=== PATIENT | male | born 1940 | race Asian ===

== ENCOUNTER 2018-01-24 18:26 | Inpatient (IN) | payer MEDICARE, MEDICAID ==
[~2018-01-24] VITALS: Ht 175.3 cm; Wt 75.9 kg
[2018-01-24 18:18] VITALS: BP 112/49
[2018-01-24 18:58] LABS: HEMATOCRIT 37.1 % (42.0-52.0); HEMOGLOBIN 12.8 G/DL (14.2-18.0); LYMPHOCYTES % (AUTO) 2.7 % (20.0-45.0); MEAN CORPUSCULAR VOLUME 92 FL (80-99); MONOCYTES % (AUTO) 2.3 % (1.0-10.0); NEUTROPHILS % (AUTO) 94.9 % (45.0-75.0); PLATELET COUNT 234 K/UL (150-450); RED BLOOD COUNT 4.03 M/UL (4.70-6.10); RED CELL DISTRIBUTION WIDTH 12.1 % (11.6-14.8); WHITE BLOOD COUNT 10.9 K/UL (4.8-10.8)
[2018-01-24 18:59] LABS: BASOPHILS % (AUTO) 0.2 % (0.0-2.0)
[2018-01-24 19:09] LABS: ANION GAP 10 mmol/L (5-15); BLOOD UREA NITROGEN 52 mg/dL (7-18); CALCIUM 8.5 MG/DL (8.5-10.1); CARBON DIOXIDE 22 MMOL/L (21-32); CHLORIDE 103 MMOL/L (98-107); CREATININE 1.6 MG/DL (0.55-1.30); POTASSIUM 3.4 MMOL/L (3.5-5.1); SODIUM 135 MMOL/L (136-145)
[2018-01-24 19:15] VITALS: BP 117/59
[2018-01-24 19:15] LABS: APPEARANCE,URINE CLOUDY; BILIRUBIN, URINE 1+ (NEGATIVE); GLUCOSE, URINE (UA) NEGATIVE (NEGATIVE); KETONES,URINE 1+ (NEGATIVE); LEUKOCYTE ESTERASE ,URINE 1+ (NEGATIVE); NITRITE,URINE NEGATIVE (NEGATIVE); PH,URINE 5 (4.5-8.0); PROTEIN,URINE 2+ (NEGATIVE); UROBILINOGEN,URINE 8 MG/DL (0.0-1.0)
[2018-01-24 19:16] LABS: COLOR,URINE AMBER
[2018-01-24 19:25] LABS: ALANINE AMINOTRANSFERASE 32 U/L (12-78); ALBUMIN 2.3 G/DL (3.4-5.0); ALBUMIN/GLOBULIN RATIO 0.5 (1.0-2.7); ALKALINE PHOSPHATASE 70 U/L (46-116); ASPARTATE AMINO TRANSFERASE 54 U/L (15-37); BILIRUBIN,TOTAL 2.2 MG/DL (0.2-1.0); CKMB 4.9 NG/ML (0.0-3.6); CREATINE KINASE 574 U/L (26-308)
[2018-01-24 19:26] LABS: BILIRUBIN,DIRECT 0.9 MG/DL (0.0-0.3)
[2018-01-24] MEDS ORDERED: Piperacillin/Tazobactam 3.375 GM in NS 110 ML IVPB ONE (19:45)
[2018-01-24] MEDS ORDERED: Azithromycin 250mg tab ORAL ONE (19:45)
[2018-01-24] MEDS ORDERED: Azithromycin 500 MG in NS 275 ML IV ONE (19:45)
[2018-01-24 20:10] VITALS: BP 118/61
[2018-01-24] MEDS ORDERED: Azithromycin 500mg Inj IV ONE (20:22)
[2018-01-24] MEDS ORDERED: CHOLESTEROL PILL (22:01)
--- NOTE | 2018-01-24 22:11 | Emergency Room Report ---
History of Present Illness General Chief Complaint: Generalized Weakness Source: Patient Present Illness HPI 77-year-old male presents ED for evaluation. Brought in by EMS from home. Increased weakness. Frequent falls. [id number] at bedside states that patient be getting increasingly weak and sick for the last few days. Reported cough. Patient refused to come to hospital for evaluation. Patient has fallen and hit his head. Denies chest pain or shortness of breath. Unclear whether patient received flu shot. No other aggravating relieving factors. Denies any other associated symptoms Allergies: Coded Allergies: No Known Allergies (Unverified , 01/24/18) Patient History Past Medical History: none Past Surgical History: none Pertinent Family History: none Social History: Denies: smoking, alcohol use, drug use Immunizations: UTD Reviewed Nursing Documentation: PMH: Agreed; PSxH: Agreed Nursing Documentation-PMH Past Medical History: No History, Except For Hx Hypertension: No - Hypotension Review of Systems All Other Systems: negative except mentioned in HPI Physical Exam Vital Signs Date Time Temp Pulse Resp B/P (MAP) Pulse Ox O2 Delivery O2 Flow Rate FiO2 01/24/18 18:00 97.2 81 20 116/60 97 Room Air Sp02 EP Interpretation: reviewed, normal General Appearance: GCS 15, non-toxic, other - lethargic Head: normocephalic Eyes: bilateral eye normal inspection, bilateral eye PERRL ENT: normal ENT inspection Neck: normal inspection Respiratory: crackles Cardiovascular #1: regular rate, rhythm, no edema Gastrointestinal: normal inspection Rectal: deferred Genitourinary: no CVA tenderness Musculoskeletal: normal inspection Neurologic: other - lethargic Psychiatric: other - lethargic Skin: normal inspection Lymphatic: normal inspection Procedures Critical Care Time Critical Care Time i. I feel this is a highly complex case requiring extensive working including EKG/Rhythm strip, Xray/CT/US, Blood/urine lab work, repeat exams while in ED, and administration of strong opiates/narcotics for pain control, admission to hospital or close patient follow up. Total time: 30 min bedside evaluation and treatment excludes procedures (EKG). Reason for critical care: hypoxia, severe sepsis Possible complications: hypotension, hypertension, SD, shock, arrhythmias, metabolic acidosis, end organ damage, respiratory failure. Interventions: Labs, IV fluids, EKG, chest x-ray, CT head. ABG. Reassessment. BiPAP. Antibiotics. Discussion with pulmonary. Course: Patient presenting with increased weakness, frequent falls. Chest x- ray shows pneumonia. Labs show renal insufficiency. Lactic 4. UA grossly positive. Patient hypoxic. ABG shows hypoxia. Placed on nonrebreather with continued hypoxia. Discussed with family about patient's status. Agreed to place on BiPAP. Given 30 mL per KG fluid bolus. Consultations: nursing staff, EMS, family Performed by: Dr Jaimes Tolerated well condition = critical j. because of unstable vital signs this patient had a condition that could potentially threaten life or limb. I feel this is a critical patient who required my full attention while patient was considered critical. Total Critical Care Time excluding procedures was greater than 35 minutes Medical Decision Making Diagnostic Impression: Primary Impression: Episode of generalized weakness Additional Impressions: Pneumonia Qualified Codes: J18.1 - Lobar pneumonia, unspecified organism UTI (urinary tract infection) Qualified Codes: N39.0 - Urinary tract infection, site not specified Hypoxia Renal insufficiency Severe sepsis ER Course Hospital Course 77-year-old male presenting to ED with generalized weakness, frequent falls, cough Differential diagnoses include: Pneumonia, UTI, sepsis, dehydration, SD/ unstable angina Clinical course Patient placed on stretcher. On spare fixer. hypoxic. After initial history and physical, I ordered labs, IV fluids, EKG, chest x-ray, blood cultures, UA, nebs, CT. Labs - BUN/Cr elevated, no leukocytosis, troponins negative, lactic 4, UA grossly positive for UTI EKG - NSR, no acute ischemic changes interpreted by mi CXR - bilateral pneumonia broad spectrum Abx given. Given 30 mL per KG fluid bolus. Patient remains hypoxic on nasal cannula. ABG shows hypoxia. Switched to nonrebreather and repeat ABG shows some improvement but still hypoxic. Discussed with family. They agreed to full care. Agreed to BiPAP. Patient started on BiPAP Case discussed with Dr Corrigan and they agreed to admit patient to their service for further care and support Dr Johnson consulted I feel this is a highly complex case requiring extensive working including EKG/ Rhythm strip, Xray/CT/US, Blood/urine lab work, repeat exams while in ED, and administration of strong opiates/narcotics for pain control, admission to hospital or close patient follow up. Diagnosis - UTI, generalized weakness, pneumonia, hypoxia, severe sepsis, renal insufficiency Patient admitted to SDU in critical condition Labs Test 01/24/18 18:30 01/24/18 19:05 01/24/18 19:43 01/24/18 19:50 White Blood Count 10.9 K/UL (4.8-10.8) Red Blood Count 4.03 M/UL (4.70-6.10) Hemoglobin 12.8 G/DL (14.2-18.0) Hematocrit 37.1 % (42.0-52.0) Mean Corpuscular Volume 92 FL (80-99) Mean Corpuscular Hemoglobin 31.8 PG (27.0-31.0) Mean Corpuscular Hemoglobin Concent 34.4 G/DL (32.0-36.0) Red Cell Distribution Width 12.1 % (11.6-14.8) Platelet Count 234 K/UL (150-450) Mean Platelet Volume 6.2 FL (6.5-10.1) Neutrophils (%) (Auto) 94.9 % (45.0-75.0) Lymphocytes (%) (Auto) 2.7 % (20.0-45.0) Monocytes (%) (Auto) 2.3 % (1.0-10.0) Eosinophils (%) (Auto) 0.0 % (0.0-3.0) Basophils (%) (Auto) 0.2 % (0.0-2.0) Sodium Level 135 MMOL/L (136-145) Potassium Level 3.4 MMOL/L (3.5-5.1) Chloride Level 103 MMOL/L (98-107) Carbon Dioxide Level 22 MMOL/L (21-32) Anion Gap 10 mmol/L (5-15) Blood Urea Nitrogen 52 mg/dL (7-18) Creatinine 1.6 MG/DL (0.55-1.30) Estimat Glomerular Filtration Rate mL/min (>60) Glucose Level 103 MG/DL (74-106) Lactic Acid Level 4.00 mmol/L (0.4-2.0) 2.90 mmol/L (0.66-2.22) Calcium Level 8.5 MG/DL (8.5-10.1) Total Bilirubin 2.2 MG/DL (0.2-1.0) Direct Bilirubin 0.9 MG/DL (0.0-0.3) Aspartate Amino Transf (AST/SGOT) 54 U/L (15-37) Alanine Aminotransferase (ALT/SGPT) 32 U/L (12-78) Alkaline Phosphatase 70 U/L (46-116) Total Creatine Kinase 574 U/L (26-308) Creatine Kinase MB 4.9 NG/ML (0.0-3.6) Creatine Kinase MB Relative Index 0.8 Troponin I 0.016 ng/mL (0.000-0.056) Pro-B-Type Natriuretic Peptide 2036 pg/mL (0-125) Total Protein 7.3 G/DL (6.4-8.2) Albumin 2.3 G/DL (3.4-5.0) Globulin 5.0 g/dL Albumin/Globulin Ratio 0.5 (1.0-2.7) Urine Color Angela Urine Appearance Cloudy Urine pH 5 (4.5-8.0) Urine Specific [place] 1.015 (1.005-1.035) Urine Protein 2+ (NEGATIVE) Urine Glucose (UA) Negative (NEGATIVE) Urine Ketones 1+ (NEGATIVE) Urine Blood 1+ (NEGATIVE) Urine Nitrite Negative (NEGATIVE) Urine Bilirubin 1+ (NEGATIVE) Urine Ictotest Negative (NEGATIVE) Urine Urobilinogen 8 MG/DL (0.0-1.0) Urine Leukocyte Esterase 1+ (NEGATIVE) Urine RBC 0-2 /HPF (0 - 0) Urine WBC 0-2 /HPF (0 - 0) Urine Squamous Epithelial Cells None /LPF (NONE/OCC) Urine Amorphous Sediment Moderate /LPF (NONE) Urine Bacteria Moderate /HPF (NONE) Urine Mucus Moderate /LPF (NONE/OCC) Arterial Blood pH 7.474 (7.350-7.450) Arterial Blood Partial Pressure CO2 26.2 mmHg (35.0-45.0) Arterial Blood Partial Pressure O2 43.7 mmHg (75.0-100.0) Arterial Blood HCO3 18.8 mmol/L (22.0-26.0) Arterial Blood Oxygen Saturation 77.9 % (95-100) Arterial Blood Base Excess -3.4 (-2-2) Dima Test Positive Test 01/24/18 20:59 Arterial Blood pH 7.452 (7.350-7.450) Arterial Blood Partial Pressure CO2 28.6 mmHg (35.0-45.0) Arterial Blood Partial Pressure O2 56.5 mmHg (75.0-100.0) Arterial Blood HCO3 19.5 mmol/L (22.0-26.0) Arterial Blood Oxygen Saturation 88.1 % (95-100) Arterial Blood Base Excess -3.3 (-2-2) Dima Test Positive EKG Diagnostic Results Rate: normal Rhythm: NSR ST Segments: no acute changes ASA given to the pt in ED: No Rhythm Strip Diag. Results EP Interpretation: yes Rhythm: NSR, no PVC's, no ectopy Chest X-Ray Diagnostic Results Chest X-Ray Diagnostic Results : Chest X-Ray Ordered: Yes # of Views/Limited/Complete: 1 View Indication: Shortness of Breath EP Interpretation: Yes Interpretation: no pneumothorax, other - bilateral consolidation Impression: Other - PNA Electronically Signed by: Electronically signed by Huan Jaimes MD Last Vital Signs Date Time Temp Pulse Resp B/P (MAP) Pulse Ox O2 Delivery O2 Flow Rate FiO2 01/24/18 18:19 83 20 Room Air 01/24/18 18:18 97.2 112/49 98 Status: improved Disposition: ADMITTED INPATIENT Condition: Serious Referrals: NON PHYSICIAN (PCP) Huan Jaimes MD Jan 24, 2018 22:11
[2018-01-24] MEDS ORDERED: Acetaminophen 650 MG SUPP RECTAL PRN (22:15)
[2018-01-24 22:30] VITALS: BP 127/73
[2018-01-25 03:25] LABS: HEMATOCRIT 36.5 % (42.0-52.0); HEMOGLOBIN 12.7 G/DL (14.2-18.0); MEAN CORPUSCULAR VOLUME 92 FL (80-99); PLATELET COUNT 231 K/UL (150-450); RED BLOOD COUNT 3.97 M/UL (4.70-6.10); RED CELL DISTRIBUTION WIDTH 12.3 % (11.6-14.8); WHITE BLOOD COUNT 12.9 K/UL (4.8-10.8)
[2018-01-25 03:49] LABS: CHOLESTEROL < 50 MG/DL (< 200); HDL CHOLESTEROL 26 MG/DL (40-60); TRIGLYCERIDES 44 MG/DL (30-150)
[2018-01-25] MEDS ORDERED: Piperacillin/Tazobactam 3.375 GM in NS 110 ML IVPB ONE (04:00)
[2018-01-25] MEDS: DiphenhydrAMINE 50mg/ml Inj IVP PRN ×2 (06:14→23:32)
[2018-01-25 06:15] VITALS: BP 131/74
[2018-01-25 06:52] VITALS: BP 134/73
[2018-01-25 07:45] VITALS: BP 138/119
--- NOTE | 2018-01-25 10:08 | Diagnostic Imaging Report ---
Indication: Shortness of breath Technique: One view of the chest Comparison: none Findings: Dense consolidation as well as reticular nodular opacities are seen in the right upper lobe, left lung base. More hazy opacification is seen in the left midlung. Nodular opacities are seen at the right lung base. Right size is normal. Impression: Bilateral parenchymal disease, as described. Suspect acute infiltrates in the right upper lobe and left lung base. However, also suspected there is a significant chronic component. Correlate with clinical findings
[2018-01-25] MEDS: Heparin 5000 units/ml inj SUBQ SCH ×2 (10:11→18:00)
--- NOTE | 2018-01-25 10:33 | Diagnostic Imaging Report ---
Indications: Head pain, status post fall Technique: Spiral acquisitions obtained through the brain. Angled axial and coronal 5 x 5 mm slices were reconstructed. Total dose length product 1481.1 mGycm. CTDI vol(s) 70.38 mGy. Dose reduction achieved using automated exposure control Comparison: None. Findings: There is age-related enlargement of the ventricles and extra axial CSF spaces. There is mild periventricular deep white matter low-attenuation, consistent with chronic ischemic change. No acute intrarenal hemorrhage or edema. No mass effect nor midline shift. Impression: Chronic and age-related changes. Negative for acute intracranial bleed or mass effect This agrees with the preliminary interpretation provided overnight by Dr. Ricci The CT scanner at [facility] is accredited by the [employer] and the scans are performed using protocols designed to limit radiation exposure to as low as reasonably achievable to attain images of sufficient resolution adequate for diagnostic evaluation.
[2018-01-25] MEDS ORDERED: Cefepime HCl 1 GM in D5W 55 ML IVPB SCH (12:00)
--- NOTE | 2018-01-25 13:49 | Consultation ---
Consult Note Assessment/Plan DICT # [id number] Lev Johnson MD Jan 25, 2018 13:49
[2018-01-25] MEDS ORDERED: Albuterol/Ipratropium 3ml neb HHN PRN (14:00)
--- NOTE | 2018-01-25 15:13 | Diagnostic Imaging Report ---
Indication: Abnormal renal function tests. Abnormal liver function tests Technique: Pinon-scale and duplex images of the upper abdomen were obtained. Doppler interrogation of the hepatic and pancreatic vessels Comparison: none Findings: Exam is limited. Per technologist, patient restlessness with difficulty breathing and unable to cooperate with positioning. Gallbladder is not visualized. Recent chest radiograph demonstrates cholecystectomy clips so presumably surgically absent. Common bile duct measures up to 14 mm in diameter. There is central intrahepatic biliary ductal dilatation. Liver demonstrates normal echogenicity. Multiple cysts are seen in the dome of the right hepatic lobe as well as within the left hepatic lobe. Portal vein and hepatic veins are patent. Pancreas is unremarkable. Spleen is unremarkable. Left kidney measures 10.6 cm in length. Right kidney measures 11.3 cm length. Both kidneys demonstrate normal echogenicity. There is no hydronephrosis. Tiny hyperechoic focus seen in the left lower pole renal sinus, could represent a tiny calyceal calculus. The right kidney demonstrates an interpolar region cyst . Abdominal aorta is slightly ectatic but not aneurysmal . Impression: Somewhat limited exam, as described Surgically absent gallbladder Extrahepatic and central intrahepatic biliary ductal dilatation, concerning for downstream obstruction. Consider contrast CT or MRCP for better characterization Possible nonobstructive tiny left lower pole renal calyceal calculus Incidental findings of hepatic and right renal cysts
[2018-01-25 15:21] LABS: ANION GAP 10 mmol/L (5-15); BLOOD UREA NITROGEN 34 mg/dL (7-18); CALCIUM 8.2 MG/DL (8.5-10.1); CARBON DIOXIDE 24 MMOL/L (21-32); CHLORIDE 111 MMOL/L (98-107); CREATININE 1.1 MG/DL (0.55-1.30); POTASSIUM 3.2 MMOL/L (3.5-5.1); SODIUM 145 MMOL/L (136-145)
[2018-01-25 15:31] LABS: ALANINE AMINOTRANSFERASE 29 U/L (12-78); ALBUMIN/GLOBULIN RATIO 0.4 (1.0-2.7); ALKALINE PHOSPHATASE 66 U/L (46-116); ASPARTATE AMINO TRANSFERASE 56 U/L (15-37); BILIRUBIN,TOTAL 2.3 MG/DL (0.2-1.0)
[2018-01-25 15:33] LABS: BILIRUBIN,DIRECT 1.1 MG/DL (0.0-0.3)
--- NOTE | 2018-01-25 15:57 | Consultation ---
History of Present Illness General Date patient seen: Jan 25, 2018 Chief Complaint: Generalized Weakness Present Illness HPI 77-year-old male presents ED for evaluation who was brought in by EMS from home for Increased weakness. the pt has been falling frequently. the pt is confused during the eval and was unable to provide hx. the pt stated his name but was disoriented to situation. the pt has waxing and waning of consciousness. left a vm for family to gather collateral info Allergies: Coded Allergies: No Known Allergies (Unverified , 01/24/18) Medication History Miscellaneous Medications [Cholesterol Pill], (Reported) Patient History Limited by: medical condition History Provided By: Medical Record, Caregiver, PMD Healthcare decision maker Resuscitation status Full Code Advanced Directive on File No Past Medical/Surgical History Past Medical/Surgical History: (1) Pneumonia (2) UTI (urinary tract infection) (3) Renal insufficiency (4) Hypoxia (5) Severe sepsis (6) Episode of generalized weakness Review of Systems Psychiatric: Reports: prior hx, anxiety Physical Exam General Appearance: no apparent distress, alert, confused Last 24 Hour Vital Signs Date Time Temp Pulse Resp B/P (MAP) Pulse Ox O2 Delivery O2 Flow Rate FiO2 01/25/18 08:01 99.8 73 25 138/119 100 Bi-pap 10.0 80 01/25/18 08:00 70 01/25/18 07:45 90 24 92 01/25/18 07:45 99.8 73 25 138/119 100 Bi-pap 10.0 80 01/25/18 07:45 92 Non-Rebreather 15.0 100 01/25/18 07:45 Non-Rebreather 15.0 100 01/25/18 06:52 99.8 73 28 134/73 100 Bi-pap 10.0 80 73 01/25/18 06:15 101.2 98 28 131/74 99 Bi-pap 6.0 80 98 01/25/18 05:13 98 28 Bi-pap 80 01/25/18 05:10 94 28 99 Facial 80 01/25/18 04:09 Bi-pap 01/25/18 03:30 80 01/25/18 03:28 99 27 100 Full Face 80 01/25/18 01:30 78 30 94 Full Face 80 01/25/18 00:45 80 01/24/18 23:30 79 25 98 Facial 80 01/24/18 22:30 Bi-pap 01/24/18 22:30 99.8 104 24 127/73 96 Bi-pap 6.0 100 104 01/24/18 22:00 78 29 96 Facial 80 01/24/18 22:00 100 01/24/18 20:10 98.9 100 22 118/61 89 Nasal Cannula 6.0 100 01/24/18 19:15 98.3 102 22 117/59 58 Room Air 102 01/24/18 18:19 83 20 Room Air 01/24/18 18:18 97.2 83 20 112/49 98 Room Air 01/24/18 18:00 97.2 81 20 116/60 97 Room Air Intake and Output 01/24/18 01/25/18 19:00 07:00 Intake Total 2495 ml Balance 2495 ml Intake IV Total 2495 ml # Voids 1 Laboratory Tests Test 01/24/18 18:30 01/24/18 19:05 01/24/18 19:43 01/24/18 19:50 White Blood Count 10.9 K/UL (4.8-10.8) H Red Blood Count 4.03 M/UL (4.70-6.10) L Hemoglobin 12.8 G/DL (14.2-18.0) L Hematocrit 37.1 % (42.0-52.0) L Mean Corpuscular Volume 92 FL (80-99) Mean Corpuscular Hemoglobin 31.8 PG (27.0-31.0) H Mean Corpuscular Hemoglobin Concent 34.4 G/DL (32.0-36.0) Red Cell Distribution Width 12.1 % (11.6-14.8) Platelet Count 234 K/UL (150-450) Mean Platelet Volume 6.2 FL (6.5-10.1) L Neutrophils (%) (Auto) 94.9 % (45.0-75.0) H Lymphocytes (%) (Auto) 2.7 % (20.0-45.0) L Monocytes (%) (Auto) 2.3 % (1.0-10.0) Eosinophils (%) (Auto) 0.0 % (0.0-3.0) Basophils (%) (Auto) 0.2 % (0.0-2.0) Sodium Level 135 MMOL/L (136-145) L Potassium Level 3.4 MMOL/L (3.5-5.1) L Chloride Level 103 MMOL/L (98-107) Carbon Dioxide Level 22 MMOL/L (21-32) Anion Gap 10 mmol/L (5-15) Blood Urea Nitrogen 52 mg/dL (7-18) H Creatinine 1.6 MG/DL (0.55-1.30) H Estimat Glomerular Filtration Rate mL/min (>60) Glucose Level 103 MG/DL (74-106) Lactic Acid Level 4.00 mmol/L (0.4-2.0) H 2.90 mmol/L (0.66-2.22) H Calcium Level 8.5 MG/DL (8.5-10.1) Total Bilirubin 2.2 MG/DL (0.2-1.0) H Direct Bilirubin 0.9 MG/DL (0.0-0.3) H Aspartate Amino Transf (AST/SGOT) 54 U/L (15-37) H Alanine Aminotransferase (ALT/SGPT) 32 U/L (12-78) Alkaline Phosphatase 70 U/L (46-116) Total Creatine Kinase 574 U/L (26-308) H Creatine Kinase MB 4.9 NG/ML (0.0-3.6) H Creatine Kinase MB Relative Index 0.8 Troponin I 0.016 ng/mL (0.000-0.056) Pro-B-Type Natriuretic Peptide 2036 pg/mL (0-125) H Total Protein 7.3 G/DL (6.4-8.2) Albumin 2.3 G/DL (3.4-5.0) L Globulin 5.0 g/dL Albumin/Globulin Ratio 0.5 (1.0-2.7) L Urine Color Angela Urine Appearance Cloudy Urine pH 5 (4.5-8.0) Urine Specific [place] 1.015 (1.005-1.035) Urine Protein 2+ (NEGATIVE) H Urine Glucose (UA) Negative (NEGATIVE) Urine Ketones 1+ (NEGATIVE) H Urine Blood 1+ (NEGATIVE) H Urine Nitrite Negative (NEGATIVE) Urine Bilirubin 1+ (NEGATIVE) H Urine Ictotest Negative (NEGATIVE) Urine Urobilinogen 8 MG/DL (0.0-1.0) H Urine Leukocyte Esterase 1+ (NEGATIVE) H Urine RBC 0-2 /HPF (0 - 0) H Urine WBC 0-2 /HPF (0 - 0) Urine Squamous Epithelial Cells None /LPF (NONE/OCC) Urine Amorphous Sediment Moderate /LPF (NONE) H Urine Bacteria Moderate /HPF (NONE) H Urine Mucus Moderate /LPF (NONE/OCC) H Arterial Blood pH 7.474 (7.350-7.450) Arterial Blood Partial Pressure CO2 26.2 mmHg (35.0-45.0) L Arterial Blood Partial Pressure O2 43.7 mmHg (75.0-100.0) Arterial Blood HCO3 18.8 mmol/L (22.0-26.0) L Arterial Blood Oxygen Saturation 77.9 % (95-100) *L Arterial Blood Base Excess -3.4 (-2-2) L Dima Test Positive Test 01/24/18 20:59 01/25/18 00:17 01/25/18 03:10 01/25/18 09:25 Arterial Blood pH 7.452 (7.350-7.450) 7.431 (7.350-7.450) Arterial Blood Partial Pressure CO2 28.6 mmHg (35.0-45.0) L 31.6 mmHg (35.0-45.0) L Arterial Blood Partial Pressure O2 56.5 mmHg (75.0-100.0) L 105.2 mmHg (75.0-100.0) H Arterial Blood HCO3 19.5 mmol/L (22.0-26.0) L 20.6 mmol/L (22.0-26.0) L Arterial Blood Oxygen Saturation 88.1 % (95-100) *L 96.7 % (95-100) Arterial Blood Base Excess -3.3 (-2-2) L -2.9 (-2-2) L Dima Test Positive Positive White Blood Count 12.9 K/UL (4.8-10.8) H Red Blood Count 3.97 M/UL (4.70-6.10) L Hemoglobin 12.7 G/DL (14.2-18.0) L Hematocrit 36.5 % (42.0-52.0) L Mean Corpuscular Volume 92 FL (80-99) Mean Corpuscular Hemoglobin 31.9 PG (27.0-31.0) H Mean Corpuscular Hemoglobin Concent 34.6 G/DL (32.0-36.0) Red Cell Distribution Width 12.3 % (11.6-14.8) Platelet Count 231 K/UL (150-450) Mean Platelet Volume 6.4 FL (6.5-10.1) L Neutrophils (%) (Auto) % (45.0-75.0) Lymphocytes (%) (Auto) % (20.0-45.0) Monocytes (%) (Auto) % (1.0-10.0) Eosinophils (%) (Auto) % (0.0-3.0) Basophils (%) (Auto) % (0.0-2.0) D-Dimer 2.87 mg/L FEU (0.00-0.49) H Hemoglobin A1c 5.4 % (4.3-6.0) Lactic Acid Level 2.00 mmol/L (0.4-2.0) 2.10 mmol/L (0.66-2.22) Troponin I 0.022 ng/mL (0.000-0.056) Pro-B-Type Natriuretic Peptide 3952 pg/mL (0-125) H Triglycerides Level 44 MG/DL (30-150) Cholesterol Level < 50 MG/DL (< 200) LDL Cholesterol 26 mg/dL (<100) HDL Cholesterol 26 MG/DL (40-60) L Cholesterol/HDL Ratio 1.9 (3.3-4.4) L Thyroid Stimulating Hormone (TSH) 0.174 uiU/mL (0.358-3.740) Test 01/25/18 15:00 Sodium Level 145 MMOL/L (136-145) # Potassium Level 3.2 MMOL/L (3.5-5.1) L Chloride Level 111 MMOL/L (98-107) H Carbon Dioxide Level 24 MMOL/L (21-32) Anion Gap 10 mmol/L (5-15) Blood Urea Nitrogen 34 mg/dL (7-18) H Creatinine 1.1 MG/DL (0.55-1.30) Estimat Glomerular Filtration Rate mL/min (>60) Glucose Level 108 MG/DL (74-106) H Calcium Level 8.2 MG/DL (8.5-10.1) L Total Bilirubin 2.3 MG/DL (0.2-1.0) H Direct Bilirubin 1.1 MG/DL (0.0-0.3) H Aspartate Amino Transf (AST/SGOT) 56 U/L (15-37) H Alanine Aminotransferase (ALT/SGPT) 29 U/L (12-78) Alkaline Phosphatase 66 U/L (46-116) Total Protein 7.0 G/DL (6.4-8.2) Albumin 2.0 G/DL (3.4-5.0) L Globulin 5.0 g/dL Albumin/Globulin Ratio 0.4 (1.0-2.7) L Microbiology Date/Time Source Procedure Growth Status 01/24/18 18:55 Nasal Nares Influenza Types A,B Antigen (SILVESTRE) - Final Complete 01/24/18 19:05 Urine,Clean Catch Urine Culture - Preliminary NO GROWTH Resulted Height (Feet): 5 Height (Inches): 9.00 Weight (Pounds): 179 Medications Current Medications Medications (Trade) Dose Ordered Sig/Chaka Route PRN Reason Start Time Stop Time Status Last Admin Dose Admin Acetaminophen (Tylenol) 650 mg PRN PRN RECTAL Prn Headache/Temp > 101 01/24/18 22:15 02/23/18 22:14 01/25/18 06:13 Albuterol/ Ipratropium (Albuterol/ Ipratropium) 3 ml Q4H PRN HHN Shortness of Breath 01/25/18 14:00 01/30/18 13:59 Albuterol/ Ipratropium (Albuterol/ Ipratropium) 3 ml Q6HRT HHN 01/25/18 19:00 01/30/18 18:59 Azithromycin 250 mg/Dextrose 275 ml @ 275 mls/hr Q24HRS IV 01/26/18 20:00 02/01/18 20:59 Azithromycin 500 mg/Sodium Chloride 275 ml @ 275 mls/hr ONCE ONCE IV 01/25/18 20:00 01/25/18 20:59 Cefepime HCl 1 gm/ Dextrose 55 ml @ 110 mls/hr Q24H IVPB 01/25/18 12:00 02/01/18 11:59 01/25/18 12:23 Dextrose/ Electrolytes 1,000 ml @ 100 mls/hr Q10H IV 01/24/18 22:15 1/3/19 22:14 01/25/18 08:15 Diphenhydramine HCl (Benadryl) 25 mg PRN PRN IVP Itching 01/24/18 22:15 02/23/18 22:14 01/25/18 06:14 Heparin Sodium (Porcine) (Heparin 5000 units/ml) 5,000 units BID SUBQ 01/25/18 09:00 02/24/18 08:59 01/25/18 10:11 Olanzapine (ZyPREXA) 2.5 mg BEDTIME ORAL 01/25/18 21:00 02/24/18 20:59 Ondansetron HCl (Zofran) 4 mg PRN PRN IVP Nausea & Vomiting 01/24/18 22:15 02/23/18 22:14 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 (2) UTI (urinary tract infection) ICD Codes: N39.0 - Urinary tract infection, site not specified SNOMED: 70992069, [id number] Qualifiers: Qualified Codes: N39.0 - Urinary tract infection, site not specified (3) Severe sepsis ICD Codes: A41.9 - Sepsis, unspecified organism; R65.20 - Severe sepsis without septic shock SNOMED: 91452615 Assessment/Plan the ct of head wnl, therefore the team would treat the underlying medical condition and will hold off on further imaging tests the pt was started on low dose zyprexa as needed the family should make decisions the pt lacks capacity MIPS Medication Reconciliation Is this a Psycho/Diag encounte: Yes Unhealthy Alcohol Use 431 (psycho/diag only) I Obtained,updated or reviewed the patient's current medications (including prescription,over the counter, herbal, and nutritional supplements). Tobacco Use 226 (psycho/diag only) Patient was screened for tobacco use today or within the past 2 years. Patient was NOT identified as a tobacco user. BMI 128 (psycho/diag only) BMI was documented today or within the past year. BMI was within normal parameters. Depression 134,411,370 (psycho/diag only) Depression screening was performed today. PHQ-9 Score: 2 Does this Patient have Dementi: Collin Perry MD Jan 25, 2018 15:56
--- NOTE | 2018-01-25 16:11 | Cardiology Report ---
APPROVED REPORT EXAM: Two-dimensional and M-mode echocardiogram with Doppler and color Doppler. INDICATION Congestive Heart Failure M-Mode DIMENSIONS IVSd1.0 (0.7-1.1cm)Left Atrium (MM)3.5 (1.6-4.0cm) LVDd4.2 (3.5-5.6cm)Aortic Root2.9 (2.0-3.7cm) PWd1.0 (0.7-1.1cm)Aortic Cusp Exc.1.7 (1.5-2.0cm) LVDs2.7 (2.5-4.0cm) PWs2.1 cm Technically difficult study due to patient aggitated. Study quality precludes accurate assessment of regional wall motion. Normal left ventricular chamber size, systolic function and wall motion. Left ventricular ejection fraction estimated to be 60 %. No evidence of left ventricular hypertrophy. Anterior Echo-free space, may be due to pericardial fat or effusion. All other cardiac chamber sizes are within normal limits. Focal aortic valve sclerosis with adequate cusp excursion. Mildly thickened mitral valve leaflets with normal excursion. Mild mitral annulus and aortic root calcification. Normal pulmonic valve structure. Normal tricuspid valve structure. IVC measures at 2.0 cm with physiological collapse. A color flow and spectral Doppler study was performed and revealed: No aortic insufficiency. Moderate mitral regurgitation. Mitral diastolic velocities suggest mild left ventricular diastolic dysfunction (Grade I). Mild tricuspid regurgitation. Tricuspid systolic velocities suggests peak right ventricular systolic pressure of 60 mmHg, consistent with severe pulmonary hypertension. No pulmonic regurgitation present.
--- NOTE | 2018-01-25 16:31 | Cardiology Report ---
APPROVED REPORT EKG Measurement Heart [id number] Sinus tachycardia Left axis deviation Nonspecific ST abnormality Abnormal ECG
--- NOTE | 2018-01-25 17:15 | Consultation ---
DATE OF CONSULTATION: 01/25/2018 INFECTIOUS DISEASE CONSULTATION CONSULTING PHYSICIAN: Ha Tello M.D. PRIMARY ATTENDING PHYSICIAN: Edwin Corrigan M.D. REASON FOR CONSULTATION: Sepsis, pneumonia. HISTORY OF PRESENT ILLNESS: This is a 77-year-old male admitted last night because of generalized weakness, frequent falls, coughing, and was found to have hypoxemia and had fever of 101.2 in the hospital. PAST MEDICAL HISTORY: Unobtainable. The patient had frequent falls and hypoglycemia according to the family. ALLERGIES: No known drug allergies. MEDICATIONS: Got a dose of Zosyn and azithromycin in the ER. SOCIAL HISTORY: [place] in origin. Lives at home alone, is single. No other history obtainable. REVIEW OF SYSTEMS: Unobtainable. PHYSICAL EXAMINATION: VITAL SIGNS: Temperature 99.8, pulse 73, blood pressure 138/119. T-max was 101.2. GENERAL APPEARANCE: He seems well developed. HEAD AND NECK: Getting oxygen by rebreathing mask. [place] conjunctivae. HEART: Normal rate. Regular. LUNGS: The patient is breathing fast. Lungs are clear. ABDOMEN: Soft, nontender. EXTREMITIES: He has no edema. LABORATORY AND DIAGNOSTIC DATA: WBC today is 12.9, coming up from 10.9 at the time of admission, hemoglobin 12.7, hematocrit 36.5. Sodium 135, potassium 3.4, BUN 52, creatinine 1.6. Lactic acid was 4, coming down to 2.9. Bilirubin is 2.2. CK was 549. AST is elevated at 54. BNP elevated at 2036. Albumin is 2.3. Chest x-ray showed bilateral parenchymal disease that are nodular, suspect acute infiltrate in the right upper lobe and left lung, however, there is a significant chronic component also. IMPRESSION: 1. Sepsis. The patient has leukocytosis, fever, lactic acidosis. 2. Hypoxemic respiratory failure, likely acute. 3. Acute renal failure. 4. Lactic acidosis. 5. Increase in bilirubin. RECOMMENDATION: We will continue Zithromax. We will start on cefepime. We will follow up blood culture and urine culture. We will follow up CT scan of the head. At the end of my exam, I thank Dr. Corrigan for involving me in the care of this patient. Ha Tello M.D. DR: Kurtis JOB#: [id number] CC:
--- NOTE | 2018-01-25 18:00 | History and Physical Report ---
DATE OF ADMISSION: 01/24/2018 HISTORY OF PRESENT ILLNESS: The patient does have dementia. History is obtained from the qnppinjt-li-[id number] at the bedside. The patient has been having frequent falls and is admitted for urinary tract infection, sepsis, pneumonia, dehydration, and hypoxic on BiPAP, was admitted to ICU. Again, he is a poor historian due to dementia. According to the nexvpodr-ts-uxc, he has been having shortness of breath, productive cough, and frequent falls. PAST MEDICAL HISTORY: History of back surgery, history of alcohol abuse, history of smoking, organic brain syndrome, lower extremity weakness, ataxia, and hyperlipidemia. MEDICATIONS: Possible cholesterol pill. ALLERGIES: No known allergies. FAMILY HISTORY: Noncontributory. SOCIAL HISTORY: History of smoking. History of alcohol abuse. No history of drug abuse. REVIEW OF SYSTEMS: Unable to obtain. Very poor historian . He has been having productive cough and shortness of breath for the past couple of days and falling a lot. PHYSICAL EXAMINATION: VITAL SIGNS: Temperature is 101.2, pulse 98 degrees, and blood pressure is 131/74. HEENT: PERRLA. CHEST: Bibasilar rales. CARDIOVASCULAR: Tachycardic. ABDOMEN: Soft. Positive bowel sounds. EXTREMITIES: No edema. Reflexes equal on both sides. NEUROLOGIC: Oriented to name only. Does not follow neurological exam. LABORATORY DATA: WBC of 10.9, hemoglobin of 12.8, and platelets of 234,000. ASSESSMENT: 1. Pneumonia. 2. Urinary tract infection. 3. Status post recurrent falls. 4. Sepsis. 5. Dehydration. 6. Hypoxia, on BiPAP. PLAN: I have asked Dr. Ha Tello, Dr. Mclaughlin, and Dr. Johnson to see the patient for the above-mentioned diagnoses and treatment. Edwin Corrigan M.D. DR: JONI JOB#: [id number] CC:
--- NOTE | 2018-01-25 18:10 | Consultation ---
Consult Note Consult Note asked to eval for elevated Cr. 77-year-old male presents ED for evaluation. Brought in by EMS from home. Increased weakness. Frequent falls. Gskihrzl-bo-qtc at bedside states that patient be getting increasingly weak and sick for the last few days. Reported cough. Patient refused to come to hospital for evaluation. Patient has fallen and hit his head. Denies chest pain or shortness of breath. Unclear whether patient received flu shot. No other aggravating relieving factors. Denies any other associated symptoms No Known Allergies (Unverified , 01/24/18) Past Medical History: No History, Except For Hx Hypertension: No - Hypotension examined data reviewed Assessment/Plan Acute renal failure Pneumonia / Sepsis / Hypoxia / UTI HypoAlbuminemia / Proteinuria Hydrate- IV antibiotics Watch electrolytes Gastric support Per orders Juan C Mclaughlin MD Jan 25, 2018 18:10
[2018-01-25] MEDS: Albuterol/Ipratropium 3ml neb HHN SCH (19:08)
[2018-01-25] MEDS ORDERED: Isovue-370 150ml vial INJ PRN (19:30)
[2018-01-25 20:00] VITALS: BP 146/78
[2018-01-25] MEDS ORDERED: Azithromycin 500 MG in NS 275 ML IV ONE (20:00)
--- NOTE | 2018-01-25 20:00 | Consultation ---
DATE OF CONSULTATION: 01/25/2018 PULMONARY CONSULTATION CONSULTING PHYSICIAN: Lev Johnson M.D. REFERRING PHYSICIAN: Edwin Corrigan M.D. REASON FOR CONSULTATION: Respiratory failure. HISTORY OF PRESENT ILLNESS: The patient is a 77-year-old Croatian male without any known medical history, brought in from home by his family with increased falls and weakness. In the ER, he was noted to be hypoxemic, initially placed on non-rebreather, ultimately on BiPAP, and back on nonrebreather. T-max is 101.2. He is requiring 100% FiO2 on nonrebreather. Workup demonstrated mild leukocytosis and evidence of bilateral pulmonary infiltrates. His D-dimer, which I ordered is elevated. He was started on antimicrobial therapy and transferred to the floor for further management. Per his family, he has been coughing, having falls, shortness of breath. No wheezing. Subjective fevers and subjective chills. No nausea, vomiting, diarrhea, or constipation. He does not really follow up with doctors regularly. He does have chronic back pain for which he had surgery and hypertension that he is on medications, but his daughter is not sure what medications he takes at baseline. PAST MEDICAL HISTORY: 1. Hypertension. 2. Chronic low back pain. PAST SURGICAL HISTORY: Back surgery. ALLERGIES: No known drug allergies. MEDICATIONS: Mjchl-eu-zcwfoakdm medications unknown. SOCIAL HISTORY: Croatian male. Current daily smoker. No drug or alcohol use. FAMILY HISTORY: Noncontributory. REVIEW OF SYSTEMS: Negative other than history of present illness. PHYSICAL EXAMINATION: VITAL SIGNS: Temperature 101.2, pulse 98, blood pressure 131/74, respiratory rate 12, saturating 99% on . GENERAL: Elderly male in no acute distress on mask. HEENT: Normocephalic and atraumatic. NECK: Supple without lymphadenopathy. CHEST: Scattered coarse breath sounds with rhonchi. HEART: Regular rate and rhythm. ABDOMEN: Soft, nontender, nondistended. EXTREMITIES: No cyanosis, clubbing, or edema. ANCILLARY DATA: ABG 7.43/31/105/20/96. White count 12.9, hemoglobin 12.7, and platelet count 231,000. D-dimer 2.87. Sodium 135, potassium 3.4, chloride 103, bicarbonate 22, BUN 55, creatinine 1.6. Lactic acid 4, repeat 2.9, repeat 2.0, repeat 2.1. CK 574. Total bilirubin 2.2, direct 0.9, AST 54. Cultures pending. Rapid flu negative. Chest x-ray from the emergency department shows bilateral parenchymal infiltrates, acute versus chronic. CT of the head shows chronic age-related changes. No bleed or mass effect. ASSESSMENT: The patient is a 77-year-old male, current daily smoker with history of hypertension, back pain, lack of health maintenance, presenting with respiratory illness, bilateral pneumonia, lactic acidosis, abnormal kidney function and renal function likely OLEG, and shock liver. He is currently stable off of BiPAP. He also has an elevated D-dimer, but given his OLEG, I will wait for repeat laboratories from this morning prior to getting a CT angio. Duplex of the lower extremities is pending. PROBLEM LIST: 1. Bilateral parenchymal infiltrates, likely community-acquired pneumonia. 2. Likely underlying lung disease. 3. Current daily smoker. 4. Possible COPD. 5. Systemic inflammatory response syndrome. 6. Lactic acidosis. 7. Abnormal creatinine, likely acute kidney injury. 8. Abnormal liver function tests. 9. Anemia. 10. Chronic low back pain. 11. History of hypertension. TREATMENT PLAN: 1. Optimize pulmonary hygiene/mobilize as tolerated. 2. Continue azithromycin and cefepime per ID. 3. Titrate FiO2 to keep saturations greater than 90%. 4. Yighs-oqh-tugod and p.r.n. bronchodilators. 5. P.r.n. BiPAP. 6. N.p.o. until swallow evaluation. 7. Check repeat laboratories. If creatinine improves, we will get a stat CT angio of the chest, will likely do abdomen and pelvis as well. 8. If creatinine is not better, we will get a stat V/Q scan. 9. Follow up duplex of the lower extremities. 10. Monitor volumes and renal function. 11. IV fluid hydration. 12. Follow up echocardiogram. 13. DVT prophylaxis, heparin subcutaneous. Lev Johnson M.D. DR: Qaun JOB#: [id number] CC:
[2018-01-25] MEDS ORDERED: OLANZapine 2.5mg tab ORAL SCH (21:00)
[2018-01-26] VITALS (31 sets, daily range): BP systolic 93–157; BP diastolic 37–87
[2018-01-26] MEDS: Albuterol/Ipratropium 3ml neb HHN SCH ×4 (01:20→19:20)
[2018-01-26 05:16] LABS: HEMATOCRIT 36.3 % (42.0-52.0); HEMOGLOBIN 12.5 G/DL (14.2-18.0); MEAN CORPUSCULAR VOLUME 94 FL (80-99); PLATELET COUNT 228 K/UL (150-450); RED BLOOD COUNT 3.85 M/UL (4.70-6.10); RED CELL DISTRIBUTION WIDTH 12.6 % (11.6-14.8); WHITE BLOOD COUNT 15.9 K/UL (4.8-10.8)
[2018-01-26 06:01] LABS: ALANINE AMINOTRANSFERASE 25 U/L (12-78); ALBUMIN 1.9 G/DL (3.4-5.0); ALBUMIN/GLOBULIN RATIO 0.4 (1.0-2.7); ALKALINE PHOSPHATASE 78 U/L (46-116); ANION GAP 12 mmol/L (5-15); ASPARTATE AMINO TRANSFERASE 60 U/L (15-37); BILIRUBIN,TOTAL 1.7 MG/DL (0.2-1.0); BLOOD UREA NITROGEN 29 mg/dL (7-18); CALCIUM 8.1 MG/DL (8.5-10.1); CARBON DIOXIDE 22 MMOL/L (21-32); CHLORIDE 113 MMOL/L (98-107); CREATININE 0.9 MG/DL (0.55-1.30); GAMMA GLUTAMYL TRANSPEPTIDASE < 3 U/L (5-85); PHOSPHORUS 3.2 MG/DL (2.5-4.9); POTASSIUM 3.3 MMOL/L (3.5-5.1); SODIUM 147 MMOL/L (136-145)
[2018-01-26 06:13] LABS: BILIRUBIN,DIRECT 0.8 MG/DL (0.0-0.3)
[2018-01-26] MEDS ORDERED: Heparin 25,000u/D5W 500ml 500 ML IV SCH ×2 (08:30→10:15)
--- NOTE | 2018-01-26 08:43 | Diagnostic Imaging Report ---
ndication: Chest pain, shortness of breath Technique: IV administration nonionic contrast. Spiral acquisitions obtained from the lung bases to the lung apices. Multiplanar and 3-D reconstructions were generated. Total dose length product 1140 mGycm. CTDIvol(s) 17, 12 x 4 mGy. Dose reduction achieved using automated exposure control Comparison: none Findings: Exam is limited due to respiratory motion artifact. Per technologist, patient unable to follow breathing instructions. This limits evaluation of the distal pulmonary arteries. No gross large vessel central pulmonary embolus demonstrated. Although the main pulmonary artery is normal in caliber, the right and left pulmonary arteries are ectatic. No definite isolated right ventricular dilatation. No evidence of thoracic aortic aneurysm or dissection. There is variant great neck vessel anatomy, with common origin of the left common carotid, right brachiocephalic arteries. The lungs demonstrate extensive honeycombing. This is seen throughout most of both upper lobes. Considerable honeycombing is also seen in the lower lobes and right middle lobe. Confluent opacities in the right middle lobe may reflect either confluent fibrosis or acute consolidation; suspect the former as the traversing bronchi are ectatic. There is dense consolidation of most of the left lower lobe that is not affected by the fibrotic change. There is some posterior consolidation involving the right lower lobe. There are trace bilateral pleural effusions. The included portions of the thyroid are unremarkable. There are prominent mediastinal lymph nodes, with paratracheal nodes measuring up to 18 mm in diameter. No axillary or chest wall mass or adenopathy. Esophagus is unremarkable. The bones demonstrate degenerative proliferative changes of the thoracic spine. Limited imaging of the upper abdomen demonstrates multiple cysts within the liver. Impression: Limited exam due to respiratory motion artifact. No evidence of large vessel central pulmonary embolus Extensive chronic pulmonary parenchymal disease, with extensive and diffuse honeycombing indicating chronic end-stage interstitial fibrosis. Superimposed acute infiltrates in the left lower lobe and to a lesser extent the right lower lobe and possibly right middle lobe Ectatic bilateral main pulmonary arteries, suggestive of but not diagnostic for pulmonary arterial hypertension there are trace bilateral pleural effusions Borderline mediastinal lymphadenopathy Degenerative spondylosis Incidental finding of liver cysts This agrees with the preliminary interpretation provided overnight by [employer] teleradiology service, with minor variation. The CT scanner at [facility] is accredited by the [employer] and the scans are performed using protocols designed to limit radiation exposure to as low as reasonably achievable to attain images of sufficient resolution adequate for diagnostic evaluation.
--- NOTE | 2018-01-26 08:50 | Emergency Room Report ---
Physical Exam Vital Signs Date Time Temp Pulse Resp B/P (MAP) Pulse Ox O2 Delivery O2 Flow Rate FiO2 01/24/18 18:00 97.2 81 20 116/60 97 Room Air 01/24/18 20:10 6.0 01/24/18 22:00 100 Medical Decision Making Diagnostic Impression: Primary Impression: Episode of generalized weakness Additional Impressions: Severe sepsis Renal insufficiency Hypoxia UTI (urinary tract infection) Qualified Codes: N39.0 - Urinary tract infection, site not specified Pneumonia Qualified Codes: J18.1 - Lobar pneumonia, unspecified organism ER Course I was asked by manager of housekeeping to intubate Mr. Boyce for respiratory failure, I reviewed ABG and spoke with respiratory therapy. Patient had persistent hypoxia and decreased LOC in spite high flow oxygen per NRB. Procedure Note: RSI Emergent conditions precluding consent Preoxygenation with NRB and BVM achieved 92% oxygenaturation 20 mg ETomidate and 100 mg Succinylcholine used for induction and paralysis. I used Yadira 4-0 blade with 7.5 Fr ETT to intubate patient with direct visualizations of vocal cords. Equal breath sounds. Condensation. +color change on CO2 detector. I reviewed CXR post intubation. Last Vital Signs Date Time Temp Pulse Resp B/P (MAP) Pulse Ox O2 Delivery O2 Flow Rate FiO2 01/26/18 07:20 Non-Rebreather 15.0 100 01/26/18 07:20 92 30 91 01/26/18 04:00 98.3 149/87 (107) Disposition: ADMITTED INPATIENT Condition: Serious Referrals: NON PHYSICIAN (PCP) Delmy Lutz MD Jan 26, 2018 08:49
--- NOTE | 2018-01-26 08:52 | Diagnostic Imaging Report ---
Clinical Indication: Pain, trauma leukocytosis, Technique: No oral contrast utilized, per emergency room physician request IV administration nonionic contrast. Venous phase spiral acquisition obtained through the abdomen and pelvis. Multiplanar reconstructions were generated. Total dose length product 140 mGycm. CTDIvol(s) 12 x 4, 17 mGy. Dose reduction achieved using automated exposure control Comparison: none Findings: Exam is limited by considerable respiratory motion artifact. There is colonic diverticulosis. No evidence of diverticulitis. The appendix is normal. No definite small bowel distention. Small amount of fluid is seen within the pelvis. No free intraperitoneal gas is demonstrated. The gallbladder is surgically absent. The extrahepatic bile ducts are dilated, common bile duct measuring up to 13 mm in diameter. No definite downstream obstructive lesion. No intrahepatic biliary ductal dilatation. The liver demonstrates multiple cysts, as well as subcentimeter low-attenuation lesions which are too small to characterize. The pancreas, spleen, adrenals are grossly unremarkable. The right kidney demonstrates an interpolar region cyst. Both kidneys demonstrate subcentimeter low-attenuation lesions which are too small to characterize. No retroperitoneal or mesenteric mass or adenopathy. There is ectasia of the right common iliac artery, although it is not frankly aneurysmal. No pelvic mass or adenopathy. 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 There is interspinous fusion hardware in the lower lumbar spine. There are degenerative spondylosis changes of the lumbar spine. No definite acute fractures. There is pulmonary parenchymal disease, discussed in separate chest CT report Impression: Limited exam, as described, due to image degradation from respiratory motion artifact. Trace free pelvic fluid No definite acute abdominal process otherwise Extrahepatic biliary ductal dilatation. Suspect related to age, and postcholecystectomy state. No definite downstream obstructive process. Nonetheless, downstream obstruction not completely excludable, and correlation with liver function tests is recommended. Colonic diverticulosis. No evidence of diverticulitis Extensive bilateral pulmonary parenchymal disease-see separate chest CT report Postsurgical changes as described, including penile prosthesis, interspinous fusion hardware, prior cholecystectomy Multiple liver cysts. Multiple subcentimeter low-attenuation liver lesions which are too small to characterize, most likely benign simple cysts or bile hamartomas. No further follow-up necessary Right renal cysts. Bilateral subcentimeter low-attenuation renal lesions, too small to characterize. No further follow-up necessary Incidental finding of degenerative spondylosis This agrees with the preliminary interpretation provided overnight by [employer] teleradiology service. The CT scanner at [facility] is accredited by the [employer] and the scans are performed using protocols designed to limit radiation exposure to as low as reasonably achievable to attain images of sufficient resolution adequate for diagnostic evaluation.
[2018-01-26] MEDS ORDERED: Heparin 5000 units/ml inj SUBQ SCH (09:00)
--- NOTE | 2018-01-26 09:59 | Pulmonolgy Critical Care Note ---
Critical Care - Asmt/Plan Problems: (1) Pulmonary fibrosis (2) Multifocal pneumonia (3) Respiratory disorder with ventilator dependence (4) Lactic acid acidosis (5) Abnormal LFTs (6) OLEG (acute kidney injury) (7) SIRS (systemic inflammatory response syndrome) (8) UTI (urinary tract infection) Assessment/Plan: ASSESSMENT: The patient is a 77-year-old male, current daily smoker with history of hypertension, back pain, lack of health maintenance, presenting with respiratory illness, bilateral pneumonia, lactic acidosis, abnormal kidney function and renal function likely OLEG, and shock liver. 01/26: Prog hypoxemia, inc WOB, tx'd to ICU, intubated PROBLEM LIST: 1. Bilateral parenchymal infiltrates, multilobar pneumonia on top of underlying fibrotic lung disease 2. VDRF 3. Metabolic & respiratory acidosis 4. Likely underlying pulmonary fibrosis and COPD 5. NSTEMI 6. Lactic acidosis - IMPROVED 7. Abnormal creatinine, likely acute kidney injury - IMPROVED 8. Abnormal liver function tests - IMPROVED 9. SIRS 10. History of hypertension. 11. PNEUMONIA TREATMENT PLAN: Continue ventilatory support: Inc PEEP to 10, titrate FiO2, AC 16 VC 450 ---> Repeat ABG in 2 hours RTC and PRN DUOnebs Cefepime & Azithro (D2), add Vanco (D2), F/U Cx's Start [facility] Trend trop, LA Repeat CBC and CMP Start TF's ICU sedation: Fentanyl gtt for RASS - 2, Versed 2 mg IV q4 PRN CT-A neg for PE, F/U Duplex TTE reviewed Cardiology evaluation pending Monitor volumes and renal function, mIVF Wound care Discuss GOC, will speak again with family, FC Px: [facility], H2B D/W family, RN, RT and team CCT 110 Critical Care - Objective Last 24 Hour Vital Signs Date Time Temp Pulse Resp B/P (MAP) Pulse Ox O2 Delivery O2 Flow Rate FiO2 01/26/18 08:44 110 16 100 01/26/18 08:35 100 01/26/18 07:20 Non-Rebreather 15.0 100 01/26/18 07:20 92 30 91 Non-Rebreather 100 01/26/18 07:20 90 Non-Rebreather 15.0 100 01/26/18 07:13 64 13 90 Bi-pap 100 01/26/18 05:15 86 38 97 Facial 100 01/26/18 04:00 Bi-pap 01/26/18 04:00 100 01/26/18 04:00 94 01/26/18 04:00 98.3 90 34 149/87 (107) 96 01/26/18 03:10 93 36 99 Facial 100 01/26/18 01:31 88 30 98 Bi-pap 100 01/26/18 01:21 95 33 97 Bi-pap 100 01/26/18 01:20 84 33 97 Facial 100 01/26/18 00:00 100 01/26/18 00:00 Bi-pap 01/26/18 00:00 98.3 83 33 141/71 (94) 97 01/25/18 23:00 88 37 98 Facial 100 01/25/18 20:48 112 27 96 Facial 100 01/25/18 20:00 98.7 89 28 146/78 (100) 92 01/25/18 20:00 93 01/25/18 20:00 Non-Rebreather 15.0 01/25/18 19:18 92 20 93 Non-Rebreather 15.0 100 01/25/18 19:08 91 20 94 Non-Rebreather 15.0 100 01/25/18 19:08 Non-Rebreather 15.0 100 01/25/18 19:08 94 Non-Rebreather 15.0 100 01/25/18 16:00 Non-Rebreather 15.0 01/25/18 16:00 83 01/25/18 12:00 70 01/25/18 12:00 Non-Rebreather 15.0 Status: awake, other - intubated Condition: critical HEENT: atraumatic Lungs: rhonchi Heart: HR/BP stable Abdomen: soft, non-tender, active bowel sounds Extremities: no C/C/E Decubiti: location - sacral , stage - 3 Micro: Microbiology Date/Time Source Procedure Growth Status 01/24/18 18:40 Blood Blood Culture - Preliminary NO GROWTH AFTER 24 HOURS Resulted 01/24/18 18:30 Blood Blood Culture - Preliminary NO GROWTH AFTER 24 HOURS Resulted 01/24/18 18:55 Nasal Nares Influenza Types A,B Antigen (SILVESTRE) - Final Complete 01/24/18 19:05 Urine,Clean Catch Urine Culture - Preliminary NO GROWTH Resulted Blood Sugars: BS controlled Critical Care - Subjective ROS Limited/Unobtainable: Yes ICU Day: 1 Intubation Day: 1 Interval Events: Inc WOB and hypoxemia O/N, altered this am, ABG with res and met acidosis, intubated CT-A CAP neg for PE but extensive underlying fibrotic lung disease + superimposed multifocal infiltrates Currently awake on vent, no sig secretions, repeat ABG pending Trops uptrending Condition: critical IV Access: peripheral EKG Rhythm: Sinus Rhythm FI02: 100 Vent Support Breath Rate: 16 Vent Support Mode: AC Vent Tidal Volume: 450 Sputum Amount: None PEEP: 5.0 PIP: 22 Secretions: None Fluids: [id number] Drips: None I&O: Intake and Output 01/25/18 01/26/18 18:59 06:59 Intake Total 985 ml 1250 ml Output Total 600 ml Balance 985 ml 650 ml Intake Oral 50 ml IV Total 985 ml 1200 ml Output Urine Total 600 ml Subjective: IRENE CXR: CT CAP: No PE, pulm fibrosis, b inf, no acute intraab findings CXR: Extensive b fibrosis and inf, ETT 2 cm above art ET-Tube: 7.5 ET Position: 23 Labs: Laboratory Tests Test 01/25/18 15:00 01/25/18 22:35 01/26/18 03:45 01/26/18 08:06 Sodium Level 145 MMOL/L (136-145) # 147 MMOL/L (136-145) H Potassium Level 3.2 MMOL/L (3.5-5.1) L 3.3 MMOL/L (3.5-5.1) L Chloride Level 111 MMOL/L (98-107) H 113 MMOL/L (98-107) H Carbon Dioxide Level 24 MMOL/L (21-32) 22 MMOL/L (21-32) Anion Gap 10 mmol/L (5-15) 12 mmol/L (5-15) Blood Urea Nitrogen 34 mg/dL (7-18) H 29 mg/dL (7-18) H Creatinine 1.1 MG/DL (0.55-1.30) 0.9 MG/DL (0.55-1.30) Estimat Glomerular Filtration Rate mL/min (>60) mL/min (>60) Glucose Level 108 MG/DL (74-106) H 128 MG/DL (74-106) H Calcium Level 8.2 MG/DL (8.5-10.1) L 8.1 MG/DL (8.5-10.1) L Total Bilirubin 2.3 MG/DL (0.2-1.0) H 1.7 MG/DL (0.2-1.0) H Direct Bilirubin 1.1 MG/DL (0.0-0.3) H 0.8 MG/DL (0.0-0.3) H Aspartate Amino Transf (AST/SGOT) 56 U/L (15-37) H 60 U/L (15-37) H Alanine Aminotransferase (ALT/SGPT) 29 U/L (12-78) 25 U/L (12-78) Alkaline Phosphatase 66 U/L (46-116) 78 U/L (46-116) C-Reactive Protein, Quantitative > 70.0 mg/dL (0.00-0.90) H Total Protein 7.0 G/DL (6.4-8.2) 6.9 G/DL (6.4-8.2) Albumin 2.0 G/DL (3.4-5.0) L 1.9 G/DL (3.4-5.0) L Globulin 5.0 g/dL 5.0 g/dL Albumin/Globulin Ratio 0.4 (1.0-2.7) L 0.4 (1.0-2.7) L Lactic Acid Level 2.80 mmol/L (0.4-2.0) H White Blood Count 15.9 K/UL (4.8-10.8) H Red Blood Count 3.85 M/UL (4.70-6.10) L Hemoglobin 12.5 G/DL (14.2-18.0) L Hematocrit 36.3 % (42.0-52.0) L Mean Corpuscular Volume 94 FL (80-99) Mean Corpuscular Hemoglobin 32.5 PG (27.0-31.0) H Mean Corpuscular Hemoglobin Concent 34.4 G/DL (32.0-36.0) Red Cell Distribution Width 12.6 % (11.6-14.8) Platelet Count 228 K/UL (150-450) Mean Platelet Volume 6.6 FL (6.5-10.1) Neutrophils (%) (Auto) % (45.0-75.0) Lymphocytes (%) (Auto) % (20.0-45.0) Monocytes (%) (Auto) % (1.0-10.0) Eosinophils (%) (Auto) % (0.0-3.0) Basophils (%) (Auto) % (0.0-2.0) Hemoglobin A1c 5.3 % (4.3-6.0) Uric Acid 3.8 MG/DL (2.6-7.2) Phosphorus Level 3.2 MG/DL (2.5-4.9) Magnesium Level 2.1 MG/DL (1.8-2.4) Gamma Glutamyl Transpeptidase < 3 U/L (5-85) L Troponin I 0.148 ng/mL (0.000-0.056) Pro-B-Type Natriuretic Peptide 4658 pg/mL (0-125) H Vitamin B12 Level 785 PG/ML (193-986) Folate 1.2 NG/ML (8.6-58.9) L Arterial Blood pH 7.182 (7.350-7.450) Arterial Blood Partial Pressure CO2 44.7 mmHg (35.0-45.0) Arterial Blood Partial Pressure O2 55.1 mmHg (75.0-100.0) L Arterial Blood HCO3 16.4 mmol/L (22.0-26.0) *L Arterial Blood Oxygen Saturation 80.2 % (95-100) *L Arterial Blood Base Excess -11.6 (-2-2) *L Dima Test Positive Test 01/26/18 08:46 Activated Partial Thromboplast Time 33 SEC (23-33) Lev Johnson MD Jan 26, 2018 09:59
[2018-01-26] MEDS ORDERED: Heparin 5000 units/ml inj IV ONE (10:00)
[2018-01-26] MEDS ORDERED: Albuterol/Ipratropium 3ml neb HHN PRN (10:00)
--- NOTE | 2018-01-26 10:18 | Cardiac Electrophysiology PN ---
Subjective Subjective [id number] Objective Last 24 Hour Vital Signs Date Time Temp Pulse Resp B/P (MAP) Pulse Ox O2 Delivery O2 Flow Rate FiO2 01/26/18 09:00 98.8 88 25 120/40 (66) 97 01/26/18 08:44 110 16 100 01/26/18 08:35 100 01/26/18 08:00 75 28 157/63 (94) 88 01/26/18 07:50 Non-Rebreather 15.0 01/26/18 07:20 Non-Rebreather 15.0 100 01/26/18 07:20 92 30 91 Non-Rebreather 100 01/26/18 07:20 90 Non-Rebreather 15.0 100 01/26/18 07:13 64 13 90 Bi-pap 100 01/26/18 05:15 86 38 97 Facial 100 01/26/18 04:00 Bi-pap 01/26/18 04:00 100 01/26/18 04:00 94 01/26/18 04:00 98.3 90 34 149/87 (107) 96 01/26/18 03:10 93 36 99 Facial 100 01/26/18 01:31 88 30 98 Bi-pap 100 01/26/18 01:21 95 33 97 Bi-pap 100 01/26/18 01:20 84 33 97 Facial 100 01/26/18 00:00 100 01/26/18 00:00 Bi-pap 01/26/18 00:00 98.3 83 33 141/71 (94) 97 01/25/18 23:00 88 37 98 Facial 100 01/25/18 20:48 112 27 96 Facial 100 01/25/18 20:00 98.7 89 28 146/78 (100) 92 01/25/18 20:00 93 01/25/18 20:00 Non-Rebreather 15.0 01/25/18 19:18 92 20 93 Non-Rebreather 15.0 100 01/25/18 19:08 91 20 94 Non-Rebreather 15.0 100 01/25/18 19:08 Non-Rebreather 15.0 100 01/25/18 19:08 94 Non-Rebreather 15.0 100 01/25/18 16:00 Non-Rebreather 15.0 01/25/18 16:00 83 01/25/18 12:00 70 01/25/18 12:00 Non-Rebreather 15.0 Intake and Output 01/25/18 01/26/18 18:59 06:59 Intake Total 985 ml 1250 ml Output Total 600 ml Balance 985 ml 650 ml Intake Oral 50 ml IV Total 985 ml 1200 ml Output Urine Total 600 ml Laboratory Tests Test 01/25/18 15:00 01/25/18 22:35 01/26/18 03:45 01/26/18 08:06 Sodium Level 145 MMOL/L (136-145) # 147 MMOL/L (136-145) H Potassium Level 3.2 MMOL/L (3.5-5.1) L 3.3 MMOL/L (3.5-5.1) L Chloride Level 111 MMOL/L (98-107) H 113 MMOL/L (98-107) H Carbon Dioxide Level 24 MMOL/L (21-32) 22 MMOL/L (21-32) Anion Gap 10 mmol/L (5-15) 12 mmol/L (5-15) Blood Urea Nitrogen 34 mg/dL (7-18) H 29 mg/dL (7-18) H Creatinine 1.1 MG/DL (0.55-1.30) 0.9 MG/DL (0.55-1.30) Estimat Glomerular Filtration Rate mL/min (>60) mL/min (>60) Glucose Level 108 MG/DL (74-106) H 128 MG/DL (74-106) H Calcium Level 8.2 MG/DL (8.5-10.1) L 8.1 MG/DL (8.5-10.1) L Total Bilirubin 2.3 MG/DL (0.2-1.0) H 1.7 MG/DL (0.2-1.0) H Direct Bilirubin 1.1 MG/DL (0.0-0.3) H 0.8 MG/DL (0.0-0.3) H Aspartate Amino Transf (AST/SGOT) 56 U/L (15-37) H 60 U/L (15-37) H Alanine Aminotransferase (ALT/SGPT) 29 U/L (12-78) 25 U/L (12-78) Alkaline Phosphatase 66 U/L (46-116) 78 U/L (46-116) C-Reactive Protein, Quantitative > 70.0 mg/dL (0.00-0.90) H Total Protein 7.0 G/DL (6.4-8.2) 6.9 G/DL (6.4-8.2) Albumin 2.0 G/DL (3.4-5.0) L 1.9 G/DL (3.4-5.0) L Globulin 5.0 g/dL 5.0 g/dL Albumin/Globulin Ratio 0.4 (1.0-2.7) L 0.4 (1.0-2.7) L Lactic Acid Level 2.80 mmol/L (0.4-2.0) H White Blood Count 15.9 K/UL (4.8-10.8) H Red Blood Count 3.85 M/UL (4.70-6.10) L Hemoglobin 12.5 G/DL (14.2-18.0) L Hematocrit 36.3 % (42.0-52.0) L Mean Corpuscular Volume 94 FL (80-99) Mean Corpuscular Hemoglobin 32.5 PG (27.0-31.0) H Mean Corpuscular Hemoglobin Concent 34.4 G/DL (32.0-36.0) Red Cell Distribution Width 12.6 % (11.6-14.8) Platelet Count 228 K/UL (150-450) Mean Platelet Volume 6.6 FL (6.5-10.1) Neutrophils (%) (Auto) % (45.0-75.0) Lymphocytes (%) (Auto) % (20.0-45.0) Monocytes (%) (Auto) % (1.0-10.0) Eosinophils (%) (Auto) % (0.0-3.0) Basophils (%) (Auto) % (0.0-2.0) Hemoglobin A1c 5.3 % (4.3-6.0) Uric Acid 3.8 MG/DL (2.6-7.2) Phosphorus Level 3.2 MG/DL (2.5-4.9) Magnesium Level 2.1 MG/DL (1.8-2.4) Gamma Glutamyl Transpeptidase < 3 U/L (5-85) L Troponin I 0.148 ng/mL (0.000-0.056) Pro-B-Type Natriuretic Peptide 4658 pg/mL (0-125) H Vitamin B12 Level 785 PG/ML (193-986) Folate 1.2 NG/ML (8.6-58.9) L Arterial Blood pH 7.182 (7.350-7.450) Arterial Blood Partial Pressure CO2 44.7 mmHg (35.0-45.0) Arterial Blood Partial Pressure O2 55.1 mmHg (75.0-100.0) L Arterial Blood HCO3 16.4 mmol/L (22.0-26.0) *L Arterial Blood Oxygen Saturation 80.2 % (95-100) *L Arterial Blood Base Excess -11.6 (-2-2) *L Dima Test Positive Test 01/26/18 08:46 Activated Partial Thromboplast Time 33 SEC (23-33) Microbiology Date/Time Source Procedure Growth Status 01/24/18 18:40 Blood Blood Culture - Preliminary NO GROWTH AFTER 24 HOURS Resulted 01/24/18 18:30 Blood Blood Culture - Preliminary NO GROWTH AFTER 24 HOURS Resulted 01/24/18 18:55 Nasal Nares Influenza Types A,B Antigen (SILVESTRE) - Final Complete 01/24/18 19:05 Urine,Clean Catch Urine Culture - Preliminary NO GROWTH Resulted Josep Brar MD Jan 26, 2018 10:18
--- NOTE | 2018-01-26 10:33 | Diagnostic Imaging Report ---
Indication: Post intubation Technique: One view of the chest Comparison: 01/24/2018 Findings: Interim endotracheal intubation, endotracheal tube tip in good position approximately 3 cm above the art. Extensive bilateral pulmonary parenchymal disease is again demonstrated. This may be slightly worse in the left perihilar region, right infrahilar region, and retrocardiac region as compared to prior exam. The heart size is normal. Impression: Satisfactory endotracheal intubation Apparent worsening of bilateral parenchymal disease, over 2 days as described
--- NOTE | 2018-01-26 10:46 | Infectious Diseases Prog Note ---
Assessment/Plan Assessment/Plan A: 1. Sepsis. leukocytosis, fever, lactic acidosis. 2. Hypoxemic respiratory failure 3. Acute renal failure. 4. Lactic acidosis. 5. Increase in bilirubin, s/p cholecystectomy 6. Pulmonary fibrosis 7. Pulmonary hypertension 8.Non STEMI P; Continue Cefepime & Zithromax Subjective ROS Limited/Unobtainable: Yes Constitutional: Reports: other - transferred to ICU Respiratory: Reports: other - intubated Psychiatric: Reports: other - on restraint Allergies: Coded Allergies: No Known Allergies (Unverified , 01/24/18) Objective Vital Signs Last 24 Hour Vital Signs Date Time Temp Pulse Resp B/P (MAP) Pulse Ox O2 Delivery O2 Flow Rate FiO2 01/26/18 10:26 29 Endotracheal Tube 100 01/26/18 09:00 98.8 88 25 120/40 (66) 97 01/26/18 08:44 110 16 100 01/26/18 08:35 100 01/26/18 08:00 75 28 157/63 (94) 88 01/26/18 07:50 Non-Rebreather 15.0 01/26/18 07:20 Non-Rebreather 15.0 100 01/26/18 07:20 92 30 91 Non-Rebreather 100 01/26/18 07:20 90 Non-Rebreather 15.0 100 01/26/18 07:13 64 13 90 Bi-pap 100 01/26/18 05:15 86 38 97 Facial 100 01/26/18 04:00 Bi-pap 01/26/18 04:00 100 01/26/18 04:00 94 01/26/18 04:00 98.3 90 34 149/87 (107) 96 01/26/18 03:10 93 36 99 Facial 100 01/26/18 01:31 88 30 98 Bi-pap 100 01/26/18 01:21 95 33 97 Bi-pap 100 01/26/18 01:20 84 33 97 Facial 100 01/26/18 00:00 100 01/26/18 00:00 Bi-pap 01/26/18 00:00 98.3 83 33 141/71 (94) 97 01/25/18 23:00 88 37 98 Facial 100 01/25/18 20:48 112 27 96 Facial 100 01/25/18 20:00 98.7 89 28 146/78 (100) 92 01/25/18 20:00 93 01/25/18 20:00 Non-Rebreather 15.0 01/25/18 19:18 92 20 93 Non-Rebreather 15.0 100 01/25/18 19:08 91 20 94 Non-Rebreather 15.0 100 01/25/18 19:08 Non-Rebreather 15.0 100 01/25/18 19:08 94 Non-Rebreather 15.0 100 01/25/18 16:00 Non-Rebreather 15.0 01/25/18 16:00 83 01/25/18 12:00 70 01/25/18 12:00 Non-Rebreather 15.0 Height (Feet): 5 Height (Inches): 9.00 Weight (Pounds): 145 HEENT: other - orally intubated Cardiovascular: normal rate Abdomen: soft, non tender Extremities: no edema Neurologic/Psychiatric: alert, responsive Microbiology Date/Time Source Procedure Growth Status 01/24/18 18:40 Blood Blood Culture - Preliminary NO GROWTH AFTER 24 HOURS Resulted 01/24/18 18:30 Blood Blood Culture - Preliminary NO GROWTH AFTER 24 HOURS Resulted 01/24/18 18:55 Nasal Nares Influenza Types A,B Antigen (SILVESTRE) - Final Complete 01/24/18 19:05 Urine,Clean Catch Urine Culture - Preliminary NO GROWTH Resulted Laboratory Tests Test 01/25/18 15:00 01/25/18 22:35 01/26/18 03:45 01/26/18 08:06 Sodium Level 145 MMOL/L (136-145) # 147 MMOL/L (136-145) H Potassium Level 3.2 MMOL/L (3.5-5.1) L 3.3 MMOL/L (3.5-5.1) L Chloride Level 111 MMOL/L (98-107) H 113 MMOL/L (98-107) H Carbon Dioxide Level 24 MMOL/L (21-32) 22 MMOL/L (21-32) Anion Gap 10 mmol/L (5-15) 12 mmol/L (5-15) Blood Urea Nitrogen 34 mg/dL (7-18) H 29 mg/dL (7-18) H Creatinine 1.1 MG/DL (0.55-1.30) 0.9 MG/DL (0.55-1.30) Estimat Glomerular Filtration Rate mL/min (>60) mL/min (>60) Glucose Level 108 MG/DL (74-106) H 128 MG/DL (74-106) H Calcium Level 8.2 MG/DL (8.5-10.1) L 8.1 MG/DL (8.5-10.1) L Total Bilirubin 2.3 MG/DL (0.2-1.0) H 1.7 MG/DL (0.2-1.0) H Direct Bilirubin 1.1 MG/DL (0.0-0.3) H 0.8 MG/DL (0.0-0.3) H Aspartate Amino Transf (AST/SGOT) 56 U/L (15-37) H 60 U/L (15-37) H Alanine Aminotransferase (ALT/SGPT) 29 U/L (12-78) 25 U/L (12-78) Alkaline Phosphatase 66 U/L (46-116) 78 U/L (46-116) C-Reactive Protein, Quantitative > 70.0 mg/dL (0.00-0.90) H Total Protein 7.0 G/DL (6.4-8.2) 6.9 G/DL (6.4-8.2) Albumin 2.0 G/DL (3.4-5.0) L 1.9 G/DL (3.4-5.0) L Globulin 5.0 g/dL 5.0 g/dL Albumin/Globulin Ratio 0.4 (1.0-2.7) L 0.4 (1.0-2.7) L Lactic Acid Level 2.80 mmol/L (0.4-2.0) H White Blood Count 15.9 K/UL (4.8-10.8) H Red Blood Count 3.85 M/UL (4.70-6.10) L Hemoglobin 12.5 G/DL (14.2-18.0) L Hematocrit 36.3 % (42.0-52.0) L Mean Corpuscular Volume 94 FL (80-99) Mean Corpuscular Hemoglobin 32.5 PG (27.0-31.0) H Mean Corpuscular Hemoglobin Concent 34.4 G/DL (32.0-36.0) Red Cell Distribution Width 12.6 % (11.6-14.8) Platelet Count 228 K/UL (150-450) Mean Platelet Volume 6.6 FL (6.5-10.1) Neutrophils (%) (Auto) % (45.0-75.0) Lymphocytes (%) (Auto) % (20.0-45.0) Monocytes (%) (Auto) % (1.0-10.0) Eosinophils (%) (Auto) % (0.0-3.0) Basophils (%) (Auto) % (0.0-2.0) Hemoglobin A1c 5.3 % (4.3-6.0) Uric Acid 3.8 MG/DL (2.6-7.2) Phosphorus Level 3.2 MG/DL (2.5-4.9) Magnesium Level 2.1 MG/DL (1.8-2.4) Gamma Glutamyl Transpeptidase < 3 U/L (5-85) L Troponin I 0.148 ng/mL (0.000-0.056) Pro-B-Type Natriuretic Peptide 4658 pg/mL (0-125) H Vitamin B12 Level 785 PG/ML (193-986) Folate 1.2 NG/ML (8.6-58.9) L Arterial Blood pH 7.182 (7.350-7.450) Arterial Blood Partial Pressure CO2 44.7 mmHg (35.0-45.0) Arterial Blood Partial Pressure O2 55.1 mmHg (75.0-100.0) L Arterial Blood HCO3 16.4 mmol/L (22.0-26.0) *L Arterial Blood Oxygen Saturation 80.2 % (95-100) *L Arterial Blood Base Excess -11.6 (-2-2) *L Dima Test Positive Test 01/26/18 08:46 Activated Partial Thromboplast Time 33 SEC (23-33) Current Medications Medications (Trade) Dose Ordered Sig/Chaka Route PRN Reason Start Time Stop Time Status Last Admin Dose Admin Acetaminophen (Tylenol) 650 mg PRN PRN RECTAL Prn Headache/Temp > 101 01/26/18 22:15 02/23/18 22:14 Albuterol/ Ipratropium (Albuterol/ Ipratropium) 3 ml Q4H PRN HHN Shortness of Breath 01/26/18 10:00 01/30/18 13:59 Albuterol/ Ipratropium (Albuterol/ Ipratropium) 3 ml Q6HRT HHN 01/26/18 13:00 01/30/18 18:59 Azithromycin 250 mg/Dextrose 275 ml @ 275 mls/hr Q24HRS IV 01/26/18 20:00 02/01/18 20:59 Barium Sulfate (Readi-Cat 2) 450 ml NOW PRN ORAL Radiology Procedure 01/26/18 19:30 01/27/18 19:22 Cefepime HCl 1 gm/ Dextrose 55 ml @ 110 mls/hr Q24H IVPB 01/26/18 12:00 02/01/18 11:59 Dextrose/ Electrolytes 1,000 ml @ 100 mls/hr Q10H IV 01/26/18 14:00 02/23/18 13:59 Diphenhydramine HCl (Benadryl) 25 mg Q6H PRN IVP Itching 01/26/18 22:15 02/25/18 22:14 Famotidine (Pepcid I.v.) 20 mg Q12HR IVP 01/26/18 10:00 02/24/18 09:59 Fentanyl Citrate 1000 mcg/Sodium Chloride 100 ml @ 0 mls/hr Q24H IV 01/26/18 10:30 02/02/18 10:29 01/26/18 10:26 Heparin Sodium/ Dextrose 500 ml @ 23.68 mls/ hr ADJUST PER PROTOCOL IV 01/26/18 10:15 02/25/18 10:14 01/26/18 10:13 Iopamidol (Isovue-370 150ml) 150 ml NOW PRN INJ Radiology Procedure 01/26/18 19:30 01/26/18 19:31 Metoprolol Tartrate (Lopressor) 25 mg Q12HR ORAL 01/26/18 21:00 02/25/18 20:59 Midazolam HCl (Versed 2mg/2ml vial) 2 mg EVERY 4 HOURS PRN IVP For Anxiety 01/26/18 10:00 02/25/18 09:59 Olanzapine (ZyPREXA) 2.5 mg BEDTIME ORAL 01/26/18 21:00 02/24/18 20:59 Ondansetron HCl (Zofran) 4 mg Q6H PRN IVP Nausea & Vomiting 01/26/18 22:15 02/25/18 22:14 Potassium Chloride 100 ml @ 100 mls/hr Q1H IVPB 01/26/18 09:30 01/26/18 12:29 01/26/18 10:11 Vancomycin HCl (Vanco rx to dose) 1 ea DAILY PRN MISC Per rx protocol 01/26/18 09:45 02/25/18 09:44 Vancomycin HCl 1 gm/Dextrose 275 ml @ 183.708 mls/hr Q12H IVPB 01/26/18 11:00 01/31/18 10:59 Ha Tello MD Jan 26, 2018 10:46
[2018-01-26 10:51] LABS: HEMATOCRIT 38.7 % (42.0-52.0); HEMOGLOBIN 12.9 G/DL (14.2-18.0); MEAN CORPUSCULAR VOLUME 95 FL (80-99); PLATELET COUNT 240 K/UL (150-450); RED BLOOD COUNT 4.07 M/UL (4.70-6.10); RED CELL DISTRIBUTION WIDTH 13.1 % (11.6-14.8); WHITE BLOOD COUNT 18.3 K/UL (4.8-10.8)
[2018-01-26 11:08] LABS: ANION GAP 10 mmol/L (5-15); BLOOD UREA NITROGEN 29 mg/dL (7-18); CARBON DIOXIDE 24 MMOL/L (21-32); CHLORIDE 115 MMOL/L (98-107); CREATININE 1.1 MG/DL (0.55-1.30); POTASSIUM 3.8 MMOL/L (3.5-5.1); SODIUM 149 MMOL/L (136-145)
--- NOTE | 2018-01-26 11:15 | Nephrology Progress Note ---
Assessment/Plan Problem List: (1) OLEG (acute kidney injury) (2) Abnormal LFTs (3) Lactic acid acidosis (4) UTI (urinary tract infection) (5) Respiratory disorder with ventilator dependence (6) Pulmonary fibrosis Assessment Acute renal failure Pneumonia / Sepsis / Hypoxia / UTI HypoAlbuminemia / Proteinuria Acute respiratory failure Pulmonary fibrosis Lactic acidosis Plan Hydrate- Pulm support IV antibiotics Watch electrolytes Gastric support Per orders Subjective ROS Limited/Unobtainable: Yes Objective Objective Last 24 Hour Vital Signs Date Time Temp Pulse Resp B/P (MAP) Pulse Ox O2 Delivery O2 Flow Rate FiO2 01/26/18 11:09 108 30 100 01/26/18 10:26 29 Endotracheal Tube 100 01/26/18 09:00 98.8 88 25 120/40 (66) 97 01/26/18 08:44 110 16 100 01/26/18 08:35 100 01/26/18 08:00 75 28 157/63 (94) 88 01/26/18 07:50 Non-Rebreather 15.0 01/26/18 07:49 67 01/26/18 07:20 Non-Rebreather 15.0 100 01/26/18 07:20 92 30 91 Non-Rebreather 100 01/26/18 07:20 90 Non-Rebreather 15.0 100 01/26/18 07:13 64 13 90 Bi-pap 100 01/26/18 05:15 86 38 97 Facial 100 01/26/18 04:00 Bi-pap 01/26/18 04:00 100 01/26/18 04:00 94 01/26/18 04:00 98.3 90 34 149/87 (107) 96 01/26/18 03:10 93 36 99 Facial 100 01/26/18 01:31 88 30 98 Bi-pap 100 01/26/18 01:21 95 33 97 Bi-pap 100 01/26/18 01:20 84 33 97 Facial 100 01/26/18 00:00 100 01/26/18 00:00 Bi-pap 01/26/18 00:00 98.3 83 33 141/71 (94) 97 01/25/18 23:00 88 37 98 Facial 100 01/25/18 20:48 112 27 96 Facial 100 01/25/18 20:00 98.7 89 28 146/78 (100) 92 01/25/18 20:00 93 12/5/18 20:00 Non-Rebreather 15.0 01/25/18 19:18 92 20 93 Non-Rebreather 15.0 100 01/25/18 19:08 91 20 94 Non-Rebreather 15.0 100 01/25/18 19:08 Non-Rebreather 15.0 100 01/25/18 19:08 94 Non-Rebreather 15.0 100 01/25/18 16:00 Non-Rebreather 15.0 01/25/18 16:00 83 01/25/18 12:00 70 01/25/18 12:00 Non-Rebreather 15.0 Intake and Output 01/25/18 01/26/18 18:59 06:59 Intake Total 985 ml 1250 ml Output Total 600 ml Balance 985 ml 650 ml Intake Oral 50 ml IV Total 985 ml 1200 ml Output Urine Total 600 ml Laboratory Tests 01/25/18 15:00: Sodium Level 145#, Potassium Level 3.2L, Chloride Level 111H, Carbon Dioxide Level 24, Anion Gap 10, Blood Urea Nitrogen 34H, Creatinine 1.1, Estimat Glomerular Filtration Rate , Glucose Level 108H, Calcium Level 8.2L, Total Bilirubin 2.3H, Direct Bilirubin 1.1H, Aspartate Amino Transf (AST/SGOT) 56H, Alanine Aminotransferase (ALT/SGPT) 29, Alkaline Phosphatase 66, C-Reactive Protein, Quantitative > 70.0H, Total Protein 7.0, Albumin 2.0L, Globulin 5.0, Albumin/Globulin Ratio 0.4L 01/25/18 22:35: Lactic Acid Level 2.80H 01/26/18 03:45: Sodium Level 147H, Potassium Level 3.3L, Chloride Level 113H, Carbon Dioxide Level 22, Anion Gap 12, Blood Urea Nitrogen 29H, Creatinine 0.9, Estimat Glomerular Filtration Rate , Glucose Level 128H, Calcium Level 8.1L, Total Bilirubin 1.7H, Direct Bilirubin 0.8H, Aspartate Amino Transf (AST/SGOT) 60H, Alanine Aminotransferase (ALT/SGPT) 25, Alkaline Phosphatase 78, Total Protein 6.9, Albumin 1.9L, Globulin 5.0, Albumin/Globulin Ratio 0.4L, White Blood Count 15.9H, Red Blood Count 3.85L, Hemoglobin 12.5L, Hematocrit 36.3L, Mean Corpuscular Volume 94, Mean Corpuscular Hemoglobin 32.5H, Mean Corpuscular Hemoglobin Concent 34.4, Red Cell Distribution Width 12.6, Platelet Count 228, Mean Platelet Volume 6.6, Neutrophils (%) (Auto) , Lymphocytes (%) (Auto) , Monocytes (%) (Auto) , Eosinophils (%) (Auto) , Basophils (%) (Auto) , Hemoglobin A1c 5.3, Uric Acid 3.8, Phosphorus Level 3.2, Magnesium Level 2.1, Gamma Glutamyl Transpeptidase < 3L, Troponin I 0.148H, Pro-B-Type Natriuretic Peptide 4658H, Vitamin B12 Level 785, Folate 1.2L 01/26/18 08:06: Arterial Blood pH 7.182*L, Arterial Blood Partial Pressure CO2 44.7, Arterial Blood Partial Pressure O2 55.1L, Arterial Blood HCO3 16.4*L, Arterial Blood Oxygen Saturation 80.2*L, Arterial Blood Base Excess -11.6*L, Dima Test Positive 01/26/18 08:46: Activated Partial Thromboplast Time 33 01/26/18 10:35: White Blood Count 18.3H, Red Blood Count 4.07L, Hemoglobin 12.9L, Hematocrit 38.7L, Mean Corpuscular Volume 95, Mean Corpuscular Hemoglobin 31.7H, Mean Corpuscular Hemoglobin Concent 33.4, Red Cell Distribution Width 13.1, Platelet Count 240, Mean Platelet Volume 6.6, Neutrophils (%) (Auto) , Lymphocytes (%) ( Auto) , Monocytes (%) (Auto) , Eosinophils (%) (Auto) , Basophils (%) (Auto) , Differential Total Cells Counted 100, Neutrophils % (Manual) 92H, Lymphocytes % (Manual) 5L, Monocytes % (Manual) 3, Eosinophils % (Manual) 0, Basophils % ( Manual) 0, Band Neutrophils 0, Platelet Estimate Adequate, Platelet Morphology Normal, Red Blood Cell Morphology Normal, Sodium Level 149H, Potassium Level 3.8 , Chloride Level 115H, Carbon Dioxide Level 24, Anion Gap 10, Blood Urea Nitrogen 29H, Creatinine 1.1, Estimat Glomerular Filtration Rate , Glucose Level 179H, Lactic Acid Level [Pending], Calcium Level 8.0L Height (Feet): 5 Height (Inches): 9.00 Weight (Pounds): 145 General Appearance: other - now intubated in ICU Cardiovascular: tachycardia Respiratory/Chest: decreased breath sounds Abdomen: distended Juan C Mclaughlin MD Jan 26, 2018 11:15
[2018-01-26] MEDS: Vancomycin 1gm in D5W 275ml IVPB SCH ×2 (11:38→22:57)
--- NOTE | 2018-01-26 13:04 | General Progress Note ---
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 (2) UTI (urinary tract infection) ICD Codes: N39.0 - Urinary tract infection, site not specified SNOMED: 15017344, [id number] Qualifiers: Qualified Codes: N39.0 - Urinary tract infection, site not specified (3) Severe sepsis ICD Codes: A41.9 - Sepsis, unspecified organism; R65.20 - Severe sepsis without septic shock SNOMED: 43757177 Status: stable Assessment/Plan the ct of head wnl, therefore the team would treat the underlying medical condition and will hold off on further imaging tests the pt was started on low dose zyprexa as needed the family should make decisions the pt lacks capacity Subjective Date patient seen: Jan 26, 2018 Neurologic/Psychiatric: Reports: anxiety Allergies: Coded Allergies: No Known Allergies (Unverified , 01/24/18) Subjective the pt was agitated this morning then became unresponsive this am. the pt was not given any psychotropics for agitation. Objective Last 24 Hour Vital Signs Date Time Temp Pulse Resp B/P (MAP) Pulse Ox O2 Delivery O2 Flow Rate FiO2 01/26/18 12:52 91 31 96 Non-Rebreather 100 01/26/18 12:40 83 31 78 Mechanical Ventilator 100 01/26/18 12:36 83 34 100 01/26/18 12:00 30 Endotracheal Tube 100 01/26/18 12:00 Mechanical Ventilator 01/26/18 12:00 87 31 120/54 (76) 84 01/26/18 11:40 100 01/26/18 11:35 108 31 100 01/26/18 11:30 108 27 102/51 (68) 87 01/26/18 11:15 100 29 106/62 (77) 81 01/26/18 11:09 108 30 100 01/26/18 11:00 107 29 122/57 (78) 84 01/26/18 11:00 31 Endotracheal Tube 100 01/26/18 10:45 110 32 106/37 (60) 82 01/26/18 10:30 110 30 157/63 (94) 85 01/26/18 10:26 29 Endotracheal Tube 100 01/26/18 10:00 92 30 132/60 (84) 90 01/26/18 09:00 98.8 88 25 120/40 (66) 97 01/26/18 08:44 110 16 100 12/6/18 08:35 Mechanical Ventilator 01/26/18 08:35 100 01/26/18 08:00 75 28 157/63 (94) 88 01/26/18 07:50 Non-Rebreather 15.0 01/26/18 07:49 67 01/26/18 07:20 Non-Rebreather 15.0 100 01/26/18 07:20 92 30 91 Non-Rebreather 100 01/26/18 07:20 90 Non-Rebreather 15.0 100 01/26/18 07:13 64 13 90 Bi-pap 100 01/26/18 05:15 86 38 97 Facial 100 01/26/18 04:00 Bi-pap 01/26/18 04:00 100 01/26/18 04:00 94 01/26/18 04:00 98.3 90 34 149/87 (107) 96 01/26/18 03:10 93 36 99 Facial 100 01/26/18 01:31 88 30 98 Bi-pap 100 01/26/18 01:21 95 33 97 Bi-pap 100 01/26/18 01:20 84 33 97 Facial 100 01/26/18 00:00 100 01/26/18 00:00 Bi-pap 01/26/18 00:00 98.3 83 33 141/71 (94) 97 01/25/18 23:00 88 37 98 Facial 100 01/25/18 20:48 112 27 96 Facial 100 01/25/18 20:00 98.7 89 28 146/78 (100) 92 01/25/18 20:00 93 01/25/18 20:00 Non-Rebreather 15.0 01/25/18 19:18 92 20 93 Non-Rebreather 15.0 100 01/25/18 19:08 91 20 94 Non-Rebreather 15.0 100 01/25/18 19:08 Non-Rebreather 15.0 100 01/25/18 19:08 94 Non-Rebreather 15.0 100 01/25/18 16:00 Non-Rebreather 15.0 01/25/18 16:00 83 Intake and Output 01/25/18 01/26/18 19:00 07:00 Intake Total 1085 ml 1250 ml Output Total 600 ml Balance 1085 ml 650 ml Intake Oral 50 ml IV Total 1085 ml 1200 ml Output Urine Total 600 ml Laboratory Tests 01/25/18 15:00: Sodium Level 145#, Potassium Level 3.2L, Chloride Level 111H, Carbon Dioxide Level 24, Anion Gap 10, Blood Urea Nitrogen 34H, Creatinine 1.1, Estimat Glomerular Filtration Rate , Glucose Level 108H, Calcium Level 8.2L, Total Bilirubin 2.3H, Direct Bilirubin 1.1H, Aspartate Amino Transf (AST/SGOT) 56H, Alanine Aminotransferase (ALT/SGPT) 29, Alkaline Phosphatase 66, C-Reactive Protein, Quantitative > 70.0H, Total Protein 7.0, Albumin 2.0L, Globulin 5.0, Albumin/Globulin Ratio 0.4L 01/25/18 22:35: Lactic Acid Level 2.80H 01/26/18 03:45: Sodium Level 147H, Potassium Level 3.3L, Chloride Level 113H, Carbon Dioxide Level 22, Anion Gap 12, Blood Urea Nitrogen 29H, Creatinine 0.9, Estimat Glomerular Filtration Rate , Glucose Level 128H, Calcium Level 8.1L, Total Bilirubin 1.7H, Direct Bilirubin 0.8H, Aspartate Amino Transf (AST/SGOT) 60H, Alanine Aminotransferase (ALT/SGPT) 25, Alkaline Phosphatase 78, Total Protein 6.9, Albumin 1.9L, Globulin 5.0, Albumin/Globulin Ratio 0.4L, White Blood Count 15.9H, Red Blood Count 3.85L, Hemoglobin 12.5L, Hematocrit 36.3L, Mean Corpuscular Volume 94, Mean Corpuscular Hemoglobin 32.5H, Mean Corpuscular Hemoglobin Concent 34.4, Red Cell Distribution Width 12.6, Platelet Count 228, Mean Platelet Volume 6.6, Neutrophils (%) (Auto) , Lymphocytes (%) (Auto) , Monocytes (%) (Auto) , Eosinophils (%) (Auto) , Basophils (%) (Auto) , Hemoglobin A1c 5.3, Uric Acid 3.8, Phosphorus Level 3.2, Magnesium Level 2.1, Gamma Glutamyl Transpeptidase < 3L, Troponin I 0.148H, Pro-B-Type Natriuretic Peptide 4658H, Vitamin B12 Level 785, Folate 1.2L 01/26/18 08:06: Arterial Blood pH 7.182*L, Arterial Blood Partial Pressure CO2 44.7, Arterial Blood Partial Pressure O2 55.1L, Arterial Blood HCO3 16.4*L, Arterial Blood Oxygen Saturation 80.2*L, Arterial Blood Base Excess -11.6*L, Dima Test Positive 01/26/18 08:46: Activated Partial Thromboplast Time 33 01/26/18 10:35: White Blood Count 18.3H, Red Blood Count 4.07L, Hemoglobin 12.9L, Hematocrit 38.7L, Mean Corpuscular Volume 95, Mean Corpuscular Hemoglobin 31.7H, Mean Corpuscular Hemoglobin Concent 33.4, Red Cell Distribution Width 13.1, Platelet Count 240, Mean Platelet Volume 6.6, Neutrophils (%) (Auto) , Lymphocytes (%) ( Auto) , Monocytes (%) (Auto) , Eosinophils (%) (Auto) , Basophils (%) (Auto) , Differential Total Cells Counted 100, Neutrophils % (Manual) 92H, Lymphocytes % (Manual) 5L, Monocytes % (Manual) 3, Eosinophils % (Manual) 0, Basophils % ( Manual) 0, Band Neutrophils 0, Platelet Estimate Adequate, Platelet Morphology Normal, Red Blood Cell Morphology Normal, Sodium Level 149H, Potassium Level 3.8 , Chloride Level 115H, Carbon Dioxide Level 24, Anion Gap 10, Blood Urea Nitrogen 29H, Creatinine 1.1, Estimat Glomerular Filtration Rate , Glucose Level 179H, Lactic Acid Level 2.70H, Calcium Level 8.0L, C-Reactive Protein, Quantitative 37.9H 01/26/18 11:11: Arterial Blood pH 7.150*L, Arterial Blood Partial Pressure CO2 70.0*H, Arterial Blood Partial Pressure O2 57.2L, Arterial Blood HCO3 24.2, Arterial Blood Oxygen Saturation 80.8*L, Arterial Blood Base Excess -5.6L, Dima Test Positive 01/26/18 12:50: Arterial Blood pH 7.198*L, Arterial Blood Partial Pressure CO2 59.4*H, Arterial Blood Partial Pressure O2 87.3, Arterial Blood HCO3 22.6, Arterial Blood Oxygen Saturation 94.1L, Arterial Blood Base Excess -6.1L, Dima Test Positive Height (Feet): 5 Height (Inches): 9.00 Weight (Pounds): 145 General Appearance: lethargic, confused, agitated Collin Smith MD Jan 26, 2018 13:04
[2018-01-26] MEDS: Cefepime HCl 1 GM in D5W 55 ML IVPB SCH (13:30)
--- NOTE | 2018-01-26 14:11 | Diagnostic Imaging Report ---
Indication: Post nasogastric tube placement Technique: Supine view of the upper abdomen Comparison: 01/25/2018 CT scan Findings: There is a nasogastric tube in place, tip projected level gastric fundus body junction. Bowel gas pattern is unremarkable. Left lower lobe infiltrate and extensive bilateral basilar pulmonary parenchymal chronic fibrotic changes are noted. There are cholecystectomy clips. There is spinal fusion hardware. A midline metallic opacity is not evident on recent CT scan, presumably external to the patient. Impression: Satisfactory nasogastric intubation Other findings as noted
--- NOTE | 2018-01-26 17:36 | Consultation ---
History of Present Illness General Date patient seen: Jan 26, 2018 Chief Complaint: Generalized Weakness Present Illness HPI 77 year old male with multiple medical comorbidities currently admitted to ICU for care and management. On admission noted to have multiple wounds. Also noted to have abnormal LFT's and dilated CBD. surgery called to evaluate and assist with care / management. patient seen, chart reviewed, patient examined. Allergies: Coded Allergies: No Known Allergies (Unverified , 01/24/18) Medication History Miscellaneous Medications [Cholesterol Pill], (Reported) Patient History Limited by: medical condition History Provided By: Medical Record, PMD Healthcare decision maker Resuscitation status Full Code Advanced Directive on File No Past Medical/Surgical History Past Medical/Surgical History: (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 (2) Renal insufficiency (3) Hypoxia (4) UTI (urinary tract infection) (5) Pneumonia (6) Severe sepsis (7) Episode of generalized weakness (8) Pulmonary fibrosis (9) Respiratory disorder with ventilator dependence (10) Multifocal pneumonia (11) UTI (urinary tract infection) (12) Lactic acid acidosis (13) SIRS (systemic inflammatory response syndrome) (14) OLEG (acute kidney injury) (15) Abnormal LFTs Review of Systems All Other Systems: negative except mentioned in HPI Physical Exam General Appearance: mild distress Lines, tubes and drains: central line HEENT: mucous membranes moist Neck: normal inspection Respiratory/Chest: decreased breath sounds Cardiovascular/Chest: normal rate, tachycardia Abdomen: soft, no organomegaly, no mass Extremities: other Skin Exam: other Neurologic: alert Last 24 Hour Vital Signs Date Time Temp Pulse Resp B/P (MAP) Pulse Ox O2 Delivery O2 Flow Rate FiO2 01/26/18 17:00 87 26 126/53 (77) 98 01/26/18 16:30 98.5 108 28 132/66 (88) 95 01/26/18 16:18 85 30 100 01/26/18 16:00 Mechanical Ventilator 01/26/18 16:00 29 Endotracheal Tube 100.0 01/26/18 16:00 84 29 126/65 (85) 99 01/26/18 15:41 109 01/26/18 15:30 83 29 116/51 (72) 86 01/26/18 15:16 100 01/26/18 15:00 30 Endotracheal Tube 100 01/26/18 15:00 85 30 114/45 (68) 86 01/26/18 14:30 86 31 116/63 (80) 84 01/26/18 14:00 100 31 122/52 (75) 87 01/26/18 14:00 30 Endotracheal Tube 100 01/26/18 13:39 100 01/26/18 13:30 98.0 84 30 108/53 (71) 89 01/26/18 13:00 105 29 120/52 (74) 88 01/26/18 13:00 29 Endotracheal Tube 100 01/26/18 12:52 91 31 96 Non-Rebreather 100 01/26/18 12:40 83 31 78 Mechanical Ventilator 100 01/26/18 12:36 83 34 100 01/26/18 12:30 94 31 122/62 (82) 82 01/26/18 12:00 30 Endotracheal Tube 100 01/26/18 12:00 Mechanical Ventilator 01/26/18 12:00 88 01/26/18 12:00 87 31 120/54 (76) 84 01/26/18 11:40 100 01/26/18 11:35 108 31 100 01/26/18 11:30 108 27 102/51 (68) 87 01/26/18 11:15 100 29 106/62 (77) 81 01/26/18 11:09 108 30 100 01/26/18 11:00 107 29 122/57 (78) 84 01/26/18 11:00 31 Endotracheal Tube 100 01/26/18 10:45 110 32 106/37 (60) 82 01/26/18 10:30 110 30 157/63 (94) 85 01/26/18 10:26 29 Endotracheal Tube 100 01/26/18 10:00 92 30 132/60 (84) 90 01/26/18 09:00 98.8 88 25 120/40 (66) 97 01/26/18 08:44 110 16 100 01/26/18 08:35 Mechanical Ventilator 01/26/18 08:35 100 01/26/18 08:20 117 01/26/18 08:00 75 28 157/63 (94) 88 18 07:50 Non-Rebreather 15.0 01/26/18 07:49 67 01/26/18 07:20 Non-Rebreather 15.0 100 01/26/18 07:20 92 30 91 Non-Rebreather 100 01/26/18 07:20 90 Non-Rebreather 15.0 100 01/26/18 07:13 64 13 90 Bi-pap 100 01/26/18 05:15 86 38 97 Facial 100 01/26/18 04:00 Bi-pap 01/26/18 04:00 100 01/26/18 04:00 94 01/26/18 04:00 98.3 90 34 149/87 (107) 96 01/26/18 03:10 93 36 99 Facial 100 01/26/18 01:31 88 30 98 Bi-pap 100 01/26/18 01:21 95 33 97 Bi-pap 100 01/26/18 01:20 84 33 97 Facial 100 01/26/18 00:00 100 01/26/18 00:00 Bi-pap 01/26/18 00:00 98.3 83 33 141/71 (94) 97 01/25/18 23:00 88 37 98 Facial 100 01/25/18 20:48 112 27 96 Facial 100 01/25/18 20:00 98.7 89 28 146/78 (100) 92 01/25/18 20:00 93 01/25/18 20:00 Non-Rebreather 15.0 01/25/18 19:18 92 20 93 Non-Rebreather 15.0 100 01/25/18 19:08 91 20 94 Non-Rebreather 15.0 100 01/25/18 19:08 Non-Rebreather 15.0 100 01/25/18 19:08 94 Non-Rebreather 15.0 100 Intake and Output 01/25/18 01/26/18 19:00 07:00 Intake Total 1085 ml 1250 ml Output Total 600 ml Balance 1085 ml 650 ml Intake Oral 50 ml IV Total 1085 ml 1200 ml Output Urine Total 600 ml Laboratory Tests Test 01/25/18 22:35 01/26/18 03:45 01/26/18 08:06 01/26/18 08:46 Lactic Acid Level 2.80 mmol/L (0.4-2.0) H White Blood Count 15.9 K/UL (4.8-10.8) H Red Blood Count 3.85 M/UL (4.70-6.10) L Hemoglobin 12.5 G/DL (14.2-18.0) L Hematocrit 36.3 % (42.0-52.0) L Mean Corpuscular Volume 94 FL (80-99) Mean Corpuscular Hemoglobin 32.5 PG (27.0-31.0) H Mean Corpuscular Hemoglobin Concent 34.4 G/DL (32.0-36.0) Red Cell Distribution Width 12.6 % (11.6-14.8) Platelet Count 228 K/UL (150-450) Mean Platelet Volume 6.6 FL (6.5-10.1) Neutrophils (%) (Auto) % (45.0-75.0) Lymphocytes (%) (Auto) % (20.0-45.0) Monocytes (%) (Auto) % (1.0-10.0) Eosinophils (%) (Auto) % (0.0-3.0) Basophils (%) (Auto) % (0.0-2.0) Sodium Level 147 MMOL/L (136-145) H Potassium Level 3.3 MMOL/L (3.5-5.1) L Chloride Level 113 MMOL/L (98-107) H Carbon Dioxide Level 22 MMOL/L (21-32) Anion Gap 12 mmol/L (5-15) Blood Urea Nitrogen 29 mg/dL (7-18) H Creatinine 0.9 MG/DL (0.55-1.30) Estimat Glomerular Filtration Rate mL/min (>60) Glucose Level 128 MG/DL (74-106) H Hemoglobin A1c 5.3 % (4.3-6.0) Uric Acid 3.8 MG/DL (2.6-7.2) Calcium Level 8.1 MG/DL (8.5-10.1) L Phosphorus Level 3.2 MG/DL (2.5-4.9) Magnesium Level 2.1 MG/DL (1.8-2.4) Total Bilirubin 1.7 MG/DL (0.2-1.0) H Direct Bilirubin 0.8 MG/DL (0.0-0.3) H Gamma Glutamyl Transpeptidase < 3 U/L (5-85) L Aspartate Amino Transf (AST/SGOT) 60 U/L (15-37) H Alanine Aminotransferase (ALT/SGPT) 25 U/L (12-78) Alkaline Phosphatase 78 U/L (46-116) Troponin I 0.148 ng/mL (0.000-0.056) Pro-B-Type Natriuretic Peptide 4658 pg/mL (0-125) H Total Protein 6.9 G/DL (6.4-8.2) Albumin 1.9 G/DL (3.4-5.0) L Globulin 5.0 g/dL Albumin/Globulin Ratio 0.4 (1.0-2.7) L Vitamin B12 Level 785 PG/ML (193-986) Folate 1.2 NG/ML (8.6-58.9) L Arterial Blood pH 7.182 (7.350-7.450) Arterial Blood Partial Pressure CO2 44.7 mmHg (35.0-45.0) Arterial Blood Partial Pressure O2 55.1 mmHg (75.0-100.0) L Arterial Blood HCO3 16.4 mmol/L (22.0-26.0) *L Arterial Blood Oxygen Saturation 80.2 % (95-100) *L Arterial Blood Base Excess -11.6 (-2-2) *L Dima Test Positive Activated Partial Thromboplast Time 33 SEC (23-33) Test 01/26/18 10:35 01/26/18 11:11 01/26/18 12:50 01/26/18 15:35 White Blood Count 18.3 K/UL (4.8-10.8) H Red Blood Count 4.07 M/UL (4.70-6.10) L Hemoglobin 12.9 G/DL (14.2-18.0) L Hematocrit 38.7 % (42.0-52.0) L Mean Corpuscular Volume 95 FL (80-99) Mean Corpuscular Hemoglobin 31.7 PG (27.0-31.0) H Mean Corpuscular Hemoglobin Concent 33.4 G/DL (32.0-36.0) Red Cell Distribution Width 13.1 % (11.6-14.8) Platelet Count 240 K/UL (150-450) Mean Platelet Volume 6.6 FL (6.5-10.1) Neutrophils (%) (Auto) % (45.0-75.0) Lymphocytes (%) (Auto) % (20.0-45.0) Monocytes (%) (Auto) % (1.0-10.0) Eosinophils (%) (Auto) % (0.0-3.0) Basophils (%) (Auto) % (0.0-2.0) Differential Total Cells Counted 100 Neutrophils % (Manual) 92 % (45-75) H Lymphocytes % (Manual) 5 % (20-45) L Monocytes % (Manual) 3 % (1-10) Eosinophils % (Manual) 0 % (0-3) Basophils % (Manual) 0 % (0-2) Band Neutrophils 0 % (0-8) Platelet Estimate Adequate Platelet Morphology Normal Red Blood Cell Morphology Normal Sodium Level 149 MMOL/L (136-145) H Potassium Level 3.8 MMOL/L (3.5-5.1) Chloride Level 115 MMOL/L (98-107) H Carbon Dioxide Level 24 MMOL/L (21-32) Anion Gap 10 mmol/L (5-15) Blood Urea Nitrogen 29 mg/dL (7-18) H Creatinine 1.1 MG/DL (0.55-1.30) Estimat Glomerular Filtration Rate mL/min (>60) Glucose Level 179 MG/DL (74-106) H Lactic Acid Level 2.70 mmol/L (0.4-2.0) H Calcium Level 8.0 MG/DL (8.5-10.1) L C-Reactive Protein, Quantitative 37.9 mg/dL (0.00-0.90) H Arterial Blood pH 7.150 (7.350-7.450) 7.198 (7.350-7.450) Arterial Blood Partial Pressure CO2 70.0 mmHg (35.0-45.0) *H 59.4 mmHg (35.0-45.0) *H Arterial Blood Partial Pressure O2 57.2 mmHg (75.0-100.0) L 87.3 mmHg (75.0-100.0) Arterial Blood HCO3 24.2 mmol/L (22.0-26.0) 22.6 mmol/L (22.0-26.0) Arterial Blood Oxygen Saturation 80.8 % (95-100) *L 94.1 % (95-100) L Arterial Blood Base Excess -5.6 (-2-2) L -6.1 (-2-2) L Dima Test Positive Positive Activated Partial Thromboplast Time 88 SEC (23-33) H Height (Feet): 5 Height (Inches): 9.00 Weight (Pounds): 145 Medications Current Medications Medications (Trade) Dose Ordered Sig/Chaka Route PRN Reason Start Time Stop Time Status Last Admin Dose Admin Acetaminophen (Tylenol) 650 mg PRN PRN RECTAL Prn Headache/Temp > 101 01/26/18 22:15 02/23/18 22:14 Albuterol/ Ipratropium (Albuterol/ Ipratropium) 3 ml Q4H PRN HHN Shortness of Breath 01/26/18 10:00 01/30/18 13:59 Albuterol/ Ipratropium (Albuterol/ Ipratropium) 3 ml Q6HRT HHN 01/26/18 13:00 01/30/18 18:59 01/26/18 12:44 Azithromycin 250 mg/Dextrose 275 ml @ 275 mls/hr Q24HRS IV 01/26/18 20:00 02/01/18 20:59 Barium Sulfate (Readi-Cat 2) 450 ml NOW PRN ORAL Radiology Procedure 01/26/18 19:30 01/27/18 19:22 Cefepime HCl 1 gm/ Dextrose 55 ml @ 110 mls/hr Q24H IVPB 01/26/18 12:00 02/01/18 11:59 01/26/18 13:30 Dextrose/ Electrolytes 1,000 ml @ 100 mls/hr Q10H IV 01/26/18 14:00 02/23/18 13:59 01/26/18 16:46 Diphenhydramine HCl (Benadryl) 25 mg Q6H PRN IVP Itching 01/26/18 22:15 02/25/18 22:14 Famotidine (Pepcid I.v.) 20 mg Q12HR IVP 01/26/18 10:00 02/24/18 09:59 01/26/18 11:01 Fentanyl Citrate 1000 mcg/Sodium Chloride 100 ml @ 0 mls/hr Q24H IV 01/26/18 10:30 02/02/18 10:29 01/26/18 10:26 Heparin Sodium/ Dextrose 500 ml @ 23.68 mls/ hr ADJUST PER PROTOCOL IV 01/26/18 10:15 02/25/18 10:14 01/26/18 10:13 Iopamidol (Isovue-370 150ml) 150 ml NOW PRN INJ Radiology Procedure 01/26/18 19:30 01/26/18 19:31 Metoprolol Tartrate (Lopressor) 25 mg Q12HR ORAL 01/26/18 21:00 02/25/18 20:59 Midazolam HCl (Versed 2mg/2ml vial) 2 mg EVERY 4 HOURS PRN IVP For Anxiety 01/26/18 10:00 02/25/18 09:59 Olanzapine (ZyPREXA) 2.5 mg BEDTIME PRN ORAL agitation 01/26/18 21:00 02/25/18 20:59 Ondansetron HCl (Zofran) 4 mg Q6H PRN IVP Nausea & Vomiting 01/26/18 22:15 02/25/18 22:14 Vancomycin HCl (Vanco rx to dose) 1 ea DAILY PRN MISC Per rx protocol 01/26/18 09:45 02/25/18 09:44 Vancomycin HCl 1 gm/Dextrose 275 ml @ 183.708 mls/hr Q12H IVPB 01/26/18 11:00 01/31/18 10:59 01/26/18 11:38 Assessment/Plan Problem List: (1) Decubitus ulcer of sacral region, stage 3 Assessment & Plan: Stage III full thickness pressure injury sacrum present on admission (L)2cm x (W)1.8cm ,wound bed with 80% yellow slough ,20% granular Borders slightly macerated. Non-blanching erythema without elevation in skin temp, or induration periwound. NO odor noted. Abrasions noted to R elbow (L)3.2cm x (W)1.9cm.Wound with Biofilm ,erythema al; lynn borders .Periwound clean and intact. Abrasion noted to L elbow(L)5.5cm x (W)1.6cm ,biofim noted to wound bed .erythema along borders .Periwound without erythema or elevation in skin temp. Abrasion lateral L knee with dry scab. Abrasion medial R knee with dry scab. Bilat heels boggy with non-blanching erythema. Non-tender when palpated. Pt repositioned with pillow on his side but restless and repositioned self on back. Caregivers presents and made aware of pressure injury to sacrum and interventions implemented to prevent further skin breakdown. Tx.Plan: Cleanse R and L elbows with Saline.Apply Silvasorb Gel to both elbows .Cover with Optifoam drsg .Change every 3 Days and prn. Cleanse Sacral Pressure injury with Saline.Apply Therahoney .Cavilon periwound.Cover with Optifoam drsg Daily and prn. Apply Cavilon to Both heels.Cover with Optifoam drsg .Change Every 7 days and prn. Cavilon to abrasions R and L lower ext.Cover with Optifoam change every 7 days and prn. Off-load heels with pillow. Reposition at least every 2 hours or as tolerated. Surface support mattress. ICD Codes: L89.153 - Pressure ulcer of sacral region, stage 3 SNOMED: 917524155, [id number] (2) Abnormal LFTs Assessment & Plan: US reviewed - absent GB dilated ducts CT reviewed - dilated duct without notable obstruction LFT's noted and elevated t bili trending down no jaundice AST/ALT nml Alk phos nml -no acute surgical intervention necessary -t bili and d bili correlate. unlikely obstructive at this time. especially with history of cholecystectomy prior -trend labs thank you ICD Codes: R94.5 - Abnormal results of liver function studies SNOMED: 368800861 (3) Severe sepsis ICD Codes: A41.9 - Sepsis, unspecified organism; R65.20 - Severe sepsis without septic shock SNOMED: 96146009 Myke Merino Jan 26, 2018 17:36
--- NOTE | 2018-01-26 17:57 | Consultation ---
Consult Note Consult Note HEME/ONC CONSULTATION REFERRING MD: Edwin Corrigan REASON FOR CONSULT: Leukocytosis, anemia DATE OF CONSULT: 01/26/2018 HISTORY OF PRESENT ILLNESS: The patient does have dementia. History is obtained from the [id number] at the bedside. The patient has been having frequent falls and is admitted for urinary tract infection, sepsis, pneumonia, dehydration, and hypoxic on BiPAP, was admitted to ICU. Again, he is a poor historian due to dementia. According to the [id number], he has been having shortness of breath, productive cough, and frequent falls. Hematology services consulted for the evaluation of leukocytosis and anemia. Labs and imaging have been reviewed. PAST MEDICAL HISTORY: History of back surgery, history of alcohol abuse, history of smoking, organic brain syndrome, lower extremity weakness, ataxia, and hyperlipidemia. MEDICATIONS: Possible cholesterol pill. ALLERGIES: No known allergies. FAMILY HISTORY: Noncontributory. SOCIAL HISTORY: History of smoking. History of alcohol abuse. No history of drug abuse. REVIEW OF SYSTEMS: Unable to obtain. Very poor historian. He has been having productive cough and shortness of breath for the past couple of days and falling a lot. PHYSICAL EXAMINATION: VITAL SIGNS: Have been reviewed HEENT: PERRLA. CHEST: Bibasilar rales. CARDIOVASCULAR: Tachycardic. ABDOMEN: Soft. Positive bowel sounds. EXTREMITIES: No edema. Reflexes equal on both sides. NEUROLOGIC: Oriented to name only. Does not follow neurological exam. MEDICATIONS: Current meds have been reviewed LABORATORY DATA: WBC of 18.3 hemoglobin of 12.8, and platelets of 240k IMAGING:CXR --> Apparent worsening of bilateral parenchymal disease, ASSESSMENT AND RECOMMENDATIONS # Leukocytosis. Secondary to sepsis and pna. --> Peripheral has been ordered, results are pending --> Medications have been reviewed --> Imaging has been reviewed, reveals apparent worsening of bilateral parenchymal disease, --> Blood cultures and urine cultures are pending. --> has been started on abx, empiric treatment # Anemia of chronic disease due to underlying chronic medical issues, multifactorial. --> Current hgb >13, no w/u required at this time --> Cont to monitor for stability # Pneumonia. # Urinary tract infection. # Status post recurrent falls. # Sepsis. # Dehydration. # Hypoxia, on BiPAP. GREATLY APPRECIATE CONSULTATION. Fabian Yung MD Jan 26, 2018 17:57
[2018-01-26] MEDS ORDERED: Isovue-370 150ml vial INJ PRN (19:30)
[2018-01-26] MEDS ORDERED: Azithromycin 250 MG in D5W 275 ML IV SCH (20:00)
[2018-01-26] MEDS: Azithromycin 250 MG in D5W 275 ML IV SCH (20:42)
[2018-01-26] MEDS: Metoprolol 25mg tab ORAL SCH (20:43)
[2018-01-26] MEDS ORDERED: OLANZapine 2.5mg tab ORAL SCH (21:00)
[2018-01-26] MEDS ORDERED: OLANZapine 2.5mg tab ORAL PRN (21:00)
--- NOTE | 2018-01-26 21:00 | Consultation ---
DATE OF CONSULTATION: 01/26/2018 CARDIOLOGY CONSULTATION CONSULTING PHYSICIAN: Josep Brar M.D. REFERRING PHYSICIAN: Edwin Corrigan M.D. REASON FOR CONSULTATION: Elevated troponin and respiratory failure. HISTORY OF PRESENT ILLNESS: The patient is a 77-year-old [place] gentleman, who was brought from home per family for recurrent falls and weakness. In the emergency room, the patient was hypoxic and was placed on BiPAP. Temperature was 101.2, and had elevated troponin. The patient required 100% FiO2 on non-rebreather. The patient was then transferred to intensive care unit and a Cardiology consultation was requested for further evaluation and management. REVIEW OF SYSTEMS: Cannot be obtained as currently intubated in intensive care unit. PAST MEDICAL HISTORY: 1. Hypertension. 2. Recurrent falls. 3. Low back pain. PAST SURGICAL HISTORY: Back surgery. MEDICATIONS: Per reconciliation. ALLERGIES: He has no known drug allergies. SOCIAL HISTORY: He currently smokes. He does not drink alcohol. PHYSICAL EXAMINATION: VITAL SIGNS: Show blood pressure of 120/40, pulse is 88, respirations 18, and his temperature is 98.8. HEAD AND NECK: Shows no jugular venous distention. He is orally intubated. LUNGS: Coarse rhonchi bilaterally. CARDIOVASCULAR: Shows regular S1 and S2 with no gallop or murmur. ABDOMEN: Soft. EXTREMITIES: No pitting edema, but has an abrasion in his knees from multiple falls. DIAGNOSTIC DATA: EKG shows sinus tachycardia at 101 with left axis deviation with nonspecific ST-T wave abnormalities. His lower extremity duplex showed no evidence of DVT. His echocardiogram showed ejection fraction of 60% with no evidence of left ventricular hypertrophy with moderate mitral regurgitation. His CT of the chest showed pleural effusion with extensive pulmonary opacities with no evidence of pulmonary embolism. LABORATORY DATA: Labs show white count 15.9, hematocrit 12.5, hematocrit 36.3, and platelet count is 228,000. Sodium is 147, potassium is 3.3, BUN of 29, creatinine 0.9, and glucose of 128. ASSESSMENT/PLAN: 1. Troponin elevation. The first troponin was 0.022 and second troponin is 0.148. This could be due to the patient's respiratory failure and azotemia. The patient is already on heparin drip. We will get the serial cardiac enzymes. When troponin level comes down, I will discontinue heparin, especially in the setting of normal left ventricular systolic function. 2. Respiratory failure, partially due to congestive heart failure. His BNP is almost 5000. The patient is on the ventilator. Antibiotic with cefepime and azithromycin. I will start the patient on Lasix 40 mg IV daily. I will put him also on low-dose beta-sukhdev in view of elevated troponin as well as aspirin. 3. Respiratory failure, currently on the ventilator. 4. Hypokalemia, potassium was replaced. 5. Azotemia. Sodium was 147. 6. Elevated bilirubin of 2.3. Thank you very much, Dr. Corrigan for allowing me to participate in the care of this patient. Please do not hesitate to contact me for any questions regarding my evaluation. The case was discussed in detail with Dr. Johnson. Josep Brar M.D. DR: SHIRA JOB#: [id number] CC:
[2018-01-26] MEDS ORDERED: DiphenhydrAMINE 50mg/ml Inj IVP PRN (22:15)
[2018-01-26] MEDS ORDERED: Acetaminophen 650 MG SUPP RECTAL PRN (22:15)
[2018-01-27] VITALS (41 sets, daily range): BP systolic 74–131; BP diastolic 47–73
[2018-01-27] MEDS: Albuterol/Ipratropium 3ml neb HHN SCH ×4 (00:57→19:27)
[2018-01-27 04:31] LABS: HEMOGLOBIN 12.1 G/DL (14.2-18.0); MEAN CORPUSCULAR VOLUME 97 FL (80-99); PLATELET COUNT 201 K/UL (150-450); RED BLOOD COUNT 3.83 M/UL (4.70-6.10); RED CELL DISTRIBUTION WIDTH 13.1 % (11.6-14.8); WHITE BLOOD COUNT 15.9 K/UL (4.8-10.8)
[2018-01-27] MEDS ORDERED: Heparin 5000 units/ml inj IV SCH ×2 (05:00→11:24)
[2018-01-27] MEDS ORDERED: Heparin 25,000u/D5W 500ml 500 ML IV SCH ×2 (05:00→11:24)
[2018-01-27 05:02] LABS: ALANINE AMINOTRANSFERASE 25 U/L (12-78); ALBUMIN 1.7 G/DL (3.4-5.0); ALBUMIN/GLOBULIN RATIO 0.3 (1.0-2.7); ALKALINE PHOSPHATASE 82 U/L (46-116); ANION GAP 7 mmol/L (5-15); ASPARTATE AMINO TRANSFERASE 40 U/L (15-37); BILIRUBIN,TOTAL 0.8 MG/DL (0.2-1.0); BLOOD UREA NITROGEN 28 mg/dL (7-18); CALCIUM 7.9 MG/DL (8.5-10.1); CARBON DIOXIDE 25 MMOL/L (21-32); CHLORIDE 116 MMOL/L (98-107); PHOSPHORUS 2.6 MG/DL (2.5-4.9); POTASSIUM 4.2 MMOL/L (3.5-5.1); SODIUM 148 MMOL/L (136-145)
--- NOTE | 2018-01-27 07:22 | General Progress Note ---
Assessment/Plan Assessment/Plan ASSESSMENT AND RECOMMENDATIONS # Leukocytosis. Secondary to sepsis and pna. is on abx at this time --> Peripheral has been ordered and reviewed and no blasts are noted --> Medications have been reviewed --> Imaging has been reviewed, reveals apparent worsening of bilateral parenchymal disease --> Blood cultures and urine cultures are reviewed --> has been started on abx, empiric treatment --> lactic acid 2.4--> 2.1, trend down # Anemia of chronic disease due to underlying chronic medical issues, multifactorial. --> Current hgb >13, no w/u required at this time --> Cont to monitor for stability # Coagulopathy is on a heparin gtt at this time --> further as per cards, if trop down then consider to hold # Pneumonia. # Urinary tract infection. # Status post recurrent falls. # Sepsis. # Dehydration. # Respiratory failure is on a vent GREATLY APPRECIATE CONSULTATION. Subjective Allergies: Coded Allergies: No Known Allergies (Unverified , 01/24/18) Subjective on vent minimally responsive besides to commands Objective Last 24 Hour Vital Signs Date Time Temp Pulse Resp B/P (MAP) Pulse Ox O2 Delivery O2 Flow Rate FiO2 01/27/18 07:01 79 24 123/69 (87) 100 01/27/18 06:30 106 21 112/68 (83) 100 01/27/18 06:00 106 22 108/62 (77) 100 01/27/18 06:00 23 Endotracheal Tube 80 01/27/18 05:30 106 22 118/72 (87) 100 01/27/18 05:20 107 32 70 01/27/18 05:00 21 Endotracheal Tube 80 01/27/18 05:00 30 Endotracheal Tube 80 01/27/18 05:00 108 24 94/64 (74) 100 01/27/18 04:30 80 22 116/60 (78) 100 01/27/18 04:00 98.8 96 28 105/63 (77) 100 01/27/18 04:00 32 Endotracheal Tube 80 01/27/18 04:00 Mechanical Ventilator 01/27/18 04:00 70 01/27/18 04:00 83 01/27/18 03:48 106 30 70 01/27/18 03:30 92 26 92/66 (75) 97 01/27/18 03:00 26 Endotracheal Tube 80 01/27/18 03:00 102 22 95/52 (66) 100 01/27/18 02:47 98.7 01/27/18 02:30 82 25 92/59 (70) 100 01/27/18 02:17 31 Endotracheal Tube 70 01/27/18 02:00 28 Endotracheal Tube 80 01/27/18 02:00 81 29 97/61 (73) 100 01/27/18 01:30 78 28 100/55 (70) 100 01/27/18 01:11 82 30 100 Mechanical Ventilator 70 01/27/18 01:00 24 Endotracheal Tube 80 01/27/18 01:00 73 31 74/47 (56) 29 01/27/18 00:52 101 32 100 Endotracheal Tube 70 01/27/18 00:50 101 32 70 01/27/18 00:30 71 21 97/56 (70) 100 01/27/18 00:00 Mechanical Ventilator 01/27/18 00:00 98.8 70 20 88/61 (70) 100 01/27/18 00:00 75 01/27/18 00:00 26 Endotracheal Tube 80 01/26/18 23:30 97 31 93/55 (68) 100 01/26/18 23:26 80 01/26/18 23:00 26 Endotracheal Tube 100 01/26/18 22:45 101 30 90 01/26/18 22:00 27 Endotracheal Tube 100 01/26/18 21:30 85 26 113/62 (79) 98 01/26/18 21:00 28 Endotracheal Tube 100 01/26/18 21:00 83 23 96/64 (75) 98 01/26/18 20:58 112 31 85 01/26/18 20:43 82 105/50 01/26/18 20:00 100 01/26/18 20:00 Mechanical Ventilator 01/26/18 20:00 26 Endotracheal Tube 100 01/26/18 20:00 65 01/26/18 19:31 80 28 99 Mechanical Ventilator 90 01/26/18 19:19 105 31 96 Mechanical Ventilator 90 01/26/18 19:16 105 31 90 01/26/18 19:00 81 27 126/65 (85) 99 01/26/18 19:00 26 Endotracheal Tube 100 01/26/18 19:00 26 Endotracheal Tube 100 01/26/18 18:30 86 28 101/53 (69) 98 18 18:15 95 29 131/58 (82) 85 18 18:00 83 27 106/56 (73) 99 18 18:00 27 Endotracheal Tube 100 01/26/18 17:46 82 30 100 18 17:45 83 32 112/47 (68) 99 18 17:30 85 39 103/60 (74) 99 01/26/18 17:15 79 24 135/82 (99) 90 01/26/18 17:00 26 Endotracheal Tube 100 01/26/18 17:00 87 26 126/53 (77) 98 18 16:30 98.5 108 28 132/66 (88) 95 01/26/18 16:18 85 30 100 01/26/18 16:00 Mechanical Ventilator 01/26/18 16:00 29 Endotracheal Tube 100.0 01/26/18 16:00 84 29 126/65 (85) 99 01/26/18 15:41 109 01/26/18 15:30 83 29 116/51 (72) 86 01/26/18 15:16 100 01/26/18 15:00 30 Endotracheal Tube 100 01/26/18 15:00 85 30 114/45 (68) 86 01/26/18 14:30 86 31 116/63 (80) 84 01/26/18 14:00 100 31 122/52 (75) 87 01/26/18 14:00 30 Endotracheal Tube 100 01/26/18 13:39 100 01/26/18 13:30 98.0 84 30 108/53 (71) 89 01/26/18 13:00 105 29 120/52 (74) 88 01/26/18 13:00 29 Endotracheal Tube 100 01/26/18 12:52 91 31 96 Non-Rebreather 100 01/26/18 12:40 83 31 78 Mechanical Ventilator 100 01/26/18 12:36 83 34 100 01/26/18 12:30 94 31 122/62 (82) 82 01/26/18 12:00 30 Endotracheal Tube 100 01/26/18 12:00 Mechanical Ventilator 01/26/18 12:00 88 01/26/18 12:00 87 31 120/54 (76) 84 01/26/18 11:40 100 01/26/18 11:35 108 31 100 01/26/18 11:30 108 27 102/51 (68) 87 01/26/18 11:15 100 29 106/62 (77) 81 01/26/18 11:09 108 30 100 01/26/18 11:00 107 29 122/57 (78) 84 01/26/18 11:00 31 Endotracheal Tube 100 01/26/18 10:45 110 32 106/37 (60) 82 01/26/18 10:30 110 30 157/63 (94) 85 01/26/18 10:26 29 Endotracheal Tube 100 01/26/18 10:00 92 30 132/60 (84) 90 01/26/18 09:00 98.8 88 25 120/40 (66) 97 01/26/18 08:44 110 16 100 01/26/18 08:35 Mechanical Ventilator 01/26/18 08:35 100 01/26/18 08:20 117 01/26/18 08:00 75 28 157/63 (94) 88 01/26/18 07:50 Non-Rebreather 15.0 01/26/18 07:49 67 01/26/18 07:20 Non-Rebreather 15.0 100 01/26/18 07:20 92 30 91 Non-Rebreather 100 01/26/18 07:20 90 Non-Rebreather 15.0 100 Intake and Output 01/26/18 01/27/18 19:00 07:00 Intake Total 1860.170 ml 1085 ml Output Total 390 ml 90 ml Balance 1470.170 ml 995 ml Free Water 50 ml 60 ml IV Total 1780.170 ml 675 ml Tube Feeding 30 ml 290 ml Other 60 ml Output Urine Total 390 ml 90 ml Laboratory Tests 01/26/18 08:06: Arterial Blood pH 7.182*L, Arterial Blood Partial Pressure CO2 44.7, Arterial Blood Partial Pressure O2 55.1L, Arterial Blood HCO3 16.4*L, Arterial Blood Oxygen Saturation 80.2*L, Arterial Blood Base Excess -11.6*L, Dima Test Positive 01/26/18 08:46: Activated Partial Thromboplast Time 33 01/26/18 10:35: White Blood Count 18.3H, Red Blood Count 4.07L, Hemoglobin 12.9L, Hematocrit 38.7L, Mean Corpuscular Volume 95, Mean Corpuscular Hemoglobin 31.7H, Mean Corpuscular Hemoglobin Concent 33.4, Red Cell Distribution Width 13.1, Platelet Count 240, Mean Platelet Volume 6.6, Neutrophils (%) (Auto) , Lymphocytes (%) ( Auto) , Monocytes (%) (Auto) , Eosinophils (%) (Auto) , Basophils (%) (Auto) , Differential Total Cells Counted 100, Neutrophils % (Manual) 92H, Lymphocytes % (Manual) 5L, Monocytes % (Manual) 3, Eosinophils % (Manual) 0, Basophils % ( Manual) 0, Band Neutrophils 0, Platelet Estimate Adequate, Platelet Morphology Normal, Red Blood Cell Morphology Normal, Sodium Level 149H, Potassium Level 3.8 , Chloride Level 115H, Carbon Dioxide Level 24, Anion Gap 10, Blood Urea Nitrogen 29H, Creatinine 1.1, Estimat Glomerular Filtration Rate , Glucose Level 179H, Lactic Acid Level 2.70H, Calcium Level 8.0L, C-Reactive Protein, Quantitative 37.9H 01/26/18 11:11: Arterial Blood pH 7.150*L, Arterial Blood Partial Pressure CO2 70.0*H, Arterial Blood Partial Pressure O2 57.2L, Arterial Blood HCO3 24.2, Arterial Blood Oxygen Saturation 80.8*L, Arterial Blood Base Excess -5.6L, Dima Test Positive 01/26/18 12:50: Arterial Blood pH 7.198*L, Arterial Blood Partial Pressure CO2 59.4*H, Arterial Blood Partial Pressure O2 87.3, Arterial Blood HCO3 22.6, Arterial Blood Oxygen Saturation 94.1L, Arterial Blood Base Excess -6.1L, Dima Test Positive 01/26/18 15:35: Activated Partial Thromboplast Time 88H 01/26/18 23:11: Arterial Blood pH 7.270L, Arterial Blood Partial Pressure CO2 54.2H, Arterial Blood Partial Pressure O2 131.5H, Arterial Blood HCO3 24.3, Arterial Blood Oxygen Saturation 97.9, Arterial Blood Base Excess -3.1L, Dima Test Positive 01/27/18 04:00: Activated Partial Thromboplast Time 55H, White Blood Count 15.9H, Red Blood Count 3.83L, Hemoglobin 12.1L, Hematocrit 37.0L, Mean Corpuscular Volume 97, Mean Corpuscular Hemoglobin 31.7H, Mean Corpuscular Hemoglobin Concent 32.8, Red Cell Distribution Width 13.1, Platelet Count 201, Mean Platelet Volume 6.8, Neutrophils (%) (Auto) , Lymphocytes (%) (Auto) , Monocytes (%) (Auto) , Eosinophils (%) (Auto) , Basophils (%) (Auto) , Neutrophils % (Manual) [Pending] , Lymphocytes % (Manual) [Pending], Platelet Estimate [Pending], Platelet Morphology [Pending], Sodium Level 148H, Potassium Level 4.2, Chloride Level 116H, Carbon Dioxide Level 25, Anion Gap 7, Blood Urea Nitrogen 28H, Creatinine 1.0, Estimat Glomerular Filtration Rate , Glucose Level 134H, Lactic Acid Level 2.30H, Uric Acid 4.5, Calcium Level 7.9L, Phosphorus Level 2.6, Magnesium Level 2.1, Total Bilirubin 0.8, Aspartate Amino Transf (AST/SGOT) 40H, Alanine Aminotransferase (ALT/SGPT) 25, Alkaline Phosphatase 82, Troponin I 0.402H, Pro- B-Type Natriuretic Peptide 90613V, Total Protein 6.6, Albumin 1.7L, Globulin 4.9 , Albumin/Globulin Ratio 0.3L Height (Feet): 5 Height (Inches): 9.00 Weight (Pounds): 145 Cardiovascular: regular rhythm Respiratory/Chest: lungs clear Abdomen: no mass Extremities: non-tender Edema: mild edema Neurologic: alert Objective on vent Fabian Yung MD Jan 27, 2018 07:22
[2018-01-27] MEDS: Metoprolol 25mg tab ORAL SCH ×2 (10:09→21:03)
--- NOTE | 2018-01-27 10:25 | Nephrology Progress Note ---
Assessment/Plan Problem List: (1) OLEG (acute kidney injury) (2) Abnormal LFTs (3) Lactic acid acidosis (4) UTI (urinary tract infection) (5) Respiratory disorder with ventilator dependence (6) Pulmonary fibrosis Assessment Acute renal failure, oliguria today Pneumonia / Sepsis / Hypoxia / UTI HypoAlbuminemia / Proteinuria Acute respiratory failure Pulmonary fibrosis Lactic acidosis Plan Adjust jackson- Discussed with RN Hydrate- Pulm support / on vent IV antibiotics Watch electrolytes Gastric support Per orders Subjective ROS Limited/Unobtainable: Yes Objective Objective Last 24 Hour Vital Signs Date Time Temp Pulse Resp B/P (MAP) Pulse Ox O2 Delivery O2 Flow Rate FiO2 01/27/18 10:09 86 120/69 01/27/18 08:49 115 35 70 01/27/18 08:30 85 24 109/66 (80) 100 01/27/18 08:00 108 24 117/72 (87) 100 01/27/18 08:00 70 01/27/18 08:00 Mechanical Ventilator 01/27/18 07:49 105 30 100 Mechanical Ventilator 70 01/27/18 07:30 98.8 96 28 128/72 (90) 100 01/27/18 07:29 107 31 99 Endotracheal Tube 70 01/27/18 07:27 107 34 70 01/27/18 07:01 79 24 123/69 (87) 100 01/27/18 06:30 106 21 112/68 (83) 100 01/27/18 06:00 106 22 108/62 (77) 100 01/27/18 06:00 23 Endotracheal Tube 80 01/27/18 05:30 106 22 118/72 (87) 100 01/27/18 05:20 107 32 70 01/27/18 05:00 21 Endotracheal Tube 80 01/27/18 05:00 30 Endotracheal Tube 80 01/27/18 05:00 108 24 94/64 (74) 100 01/27/18 04:30 80 22 116/60 (78) 100 01/27/18 04:00 98.8 96 28 105/63 (77) 100 01/27/18 04:00 32 Endotracheal Tube 80 01/27/18 04:00 Mechanical Ventilator 01/27/18 04:00 70 01/27/18 04:00 83 01/27/18 03:48 106 30 70 01/27/18 03:30 92 26 92/66 (75) 97 12/7/18 03:00 26 Endotracheal Tube 80 01/27/18 03:00 102 22 95/52 (66) 100 01/27/18 02:47 98.7 01/27/18 02:30 82 25 92/59 (70) 100 01/27/18 02:17 31 Endotracheal Tube 70 01/27/18 02:00 28 Endotracheal Tube 80 01/27/18 02:00 81 29 97/61 (73) 100 01/27/18 01:30 78 28 100/55 (70) 100 01/27/18 01:11 82 30 100 Mechanical Ventilator 70 01/27/18 01:00 24 Endotracheal Tube 80 01/27/18 01:00 73 31 74/47 (56) 29 01/27/18 00:52 101 32 100 Endotracheal Tube 70 01/27/18 00:50 101 32 70 01/27/18 00:30 71 21 97/56 (70) 100 01/27/18 00:00 Mechanical Ventilator 01/27/18 00:00 98.8 70 20 88/61 (70) 100 01/27/18 00:00 75 01/27/18 00:00 26 Endotracheal Tube 80 01/26/18 23:30 97 31 93/55 (68) 100 01/26/18 23:26 80 01/26/18 23:00 26 Endotracheal Tube 100 01/26/18 22:45 101 30 90 01/26/18 22:00 27 Endotracheal Tube 100 01/26/18 21:30 85 26 113/62 (79) 98 01/26/18 21:00 28 Endotracheal Tube 100 01/26/18 21:00 83 23 96/64 (75) 98 01/26/18 20:58 112 31 85 01/26/18 20:43 82 105/50 01/26/18 20:00 100 01/26/18 20:00 Mechanical Ventilator 01/26/18 20:00 26 Endotracheal Tube 100 01/26/18 20:00 65 01/26/18 19:31 80 28 99 Mechanical Ventilator 90 01/26/18 19:19 105 31 96 Mechanical Ventilator 90 01/26/18 19:16 105 31 90 01/26/18 19:00 81 27 126/65 (85) 99 01/26/18 19:00 26 Endotracheal Tube 100 01/26/18 19:00 26 Endotracheal Tube 100 01/26/18 18:30 86 28 101/53 (69) 98 18 18:15 95 29 131/58 (82) 85 18 18:00 83 27 106/56 (73) 99 18 18:00 27 Endotracheal Tube 100 01/26/18 17:46 82 30 100 01/26/18 17:45 83 32 112/47 (68) 99 18 17:30 85 39 103/60 (74) 99 18 17:15 79 24 135/82 (99) 90 01/26/18 17:00 26 Endotracheal Tube 100 01/26/18 17:00 87 26 126/53 (77) 98 01/26/18 16:30 98.5 108 28 132/66 (88) 95 01/26/18 16:18 85 30 100 01/26/18 16:00 Mechanical Ventilator 01/26/18 16:00 29 Endotracheal Tube 100.0 01/26/18 16:00 84 29 126/65 (85) 99 01/26/18 15:41 109 01/26/18 15:30 83 29 116/51 (72) 86 01/26/18 15:16 100 01/26/18 15:00 30 Endotracheal Tube 100 01/26/18 15:00 85 30 114/45 (68) 86 01/26/18 14:30 86 31 116/63 (80) 84 01/26/18 14:00 100 31 122/52 (75) 87 01/26/18 14:00 30 Endotracheal Tube 100 01/26/18 13:39 100 01/26/18 13:30 98.0 84 30 108/53 (71) 89 01/26/18 13:00 105 29 120/52 (74) 88 01/26/18 13:00 29 Endotracheal Tube 100 01/26/18 12:52 91 31 96 Non-Rebreather 100 01/26/18 12:40 83 31 78 Mechanical Ventilator 100 01/26/18 12:36 83 34 100 01/26/18 12:30 94 31 122/62 (82) 82 01/26/18 12:00 30 Endotracheal Tube 100 01/26/18 12:00 Mechanical Ventilator 01/26/18 12:00 88 01/26/18 12:00 87 31 120/54 (76) 84 01/26/18 11:40 100 01/26/18 11:35 108 31 100 01/26/18 11:30 108 27 102/51 (68) 87 01/26/18 11:15 100 29 106/62 (77) 81 01/26/18 11:09 108 30 100 01/26/18 11:00 107 29 122/57 (78) 84 01/26/18 11:00 31 Endotracheal Tube 100 01/26/18 10:45 110 32 106/37 (60) 82 01/26/18 10:30 110 30 157/63 (94) 85 01/26/18 10:26 29 Endotracheal Tube 100 Intake and Output 01/26/18 01/27/18 18:59 06:59 Intake Total 1714.490 ml 1300.68 ml Output Total 380 ml 100 ml Balance 1334.490 ml 1200.68 ml Free Water 50 ml 60 ml IV Total 1644.490 ml 910.68 ml Tube Feeding 20 ml 270 ml Other 60 ml Output Urine Total 380 ml 100 ml Laboratory Tests 01/26/18 10:35: White Blood Count 18.3H, Red Blood Count 4.07L, Hemoglobin 12.9L, Hematocrit 38.7L, Mean Corpuscular Volume 95, Mean Corpuscular Hemoglobin 31.7H, Mean Corpuscular Hemoglobin Concent 33.4, Red Cell Distribution Width 13.1, Platelet Count 240, Mean Platelet Volume 6.6, Neutrophils (%) (Auto) , Lymphocytes (%) ( Auto) , Monocytes (%) (Auto) , Eosinophils (%) (Auto) , Basophils (%) (Auto) , Differential Total Cells Counted 100, Neutrophils % (Manual) 92H, Lymphocytes % (Manual) 5L, Monocytes % (Manual) 3, Eosinophils % (Manual) 0, Basophils % ( Manual) 0, Band Neutrophils 0, Platelet Estimate Adequate, Platelet Morphology Normal, Red Blood Cell Morphology Normal, Sodium Level 149H, Potassium Level 3.8 , Chloride Level 115H, Carbon Dioxide Level 24, Anion Gap 10, Blood Urea Nitrogen 29H, Creatinine 1.1, Estimat Glomerular Filtration Rate , Glucose Level 179H, Lactic Acid Level 2.70H, Calcium Level 8.0L, C-Reactive Protein, Quantitative 37.9H 01/26/18 11:11: Arterial Blood pH 7.150*L, Arterial Blood Partial Pressure CO2 70.0*H, Arterial Blood Partial Pressure O2 57.2L, Arterial Blood HCO3 24.2, Arterial Blood Oxygen Saturation 80.8*L, Arterial Blood Base Excess -5.6L, Dima Test Positive 01/26/18 12:50: Arterial Blood pH 7.198*L, Arterial Blood Partial Pressure CO2 59.4*H, Arterial Blood Partial Pressure O2 87.3, Arterial Blood HCO3 22.6, Arterial Blood Oxygen Saturation 94.1L, Arterial Blood Base Excess -6.1L, Dima Test Positive 01/26/18 15:35: Activated Partial Thromboplast Time 88H 01/26/18 23:11: Arterial Blood pH 7.270L, Arterial Blood Partial Pressure CO2 54.2H, Arterial Blood Partial Pressure O2 131.5H, Arterial Blood HCO3 24.3, Arterial Blood Oxygen Saturation 97.9, Arterial Blood Base Excess -3.1L, Dima Test Positive 01/27/18 04:00: White Blood Count 15.9H, Red Blood Count 3.83L, Hemoglobin 12.1L, Hematocrit 37.0L, Mean Corpuscular Volume 97, Mean Corpuscular Hemoglobin 31.7H, Mean Corpuscular Hemoglobin Concent 32.8, Red Cell Distribution Width 13.1, Platelet Count 201, Mean Platelet Volume 6.8, Neutrophils (%) (Auto) , Lymphocytes (%) ( Auto) , Monocytes (%) (Auto) , Eosinophils (%) (Auto) , Basophils (%) (Auto) , Differential Total Cells Counted 100, Neutrophils % (Manual) 88H, Lymphocytes % (Manual) 4L, Monocytes % (Manual) 2, Eosinophils % (Manual) 0, Basophils % ( Manual) 0, Band Neutrophils 6, Platelet Estimate Adequate, Platelet Morphology Normal, Red Blood Cell Morphology Normal, Activated Partial Thromboplast Time 55H, Sodium Level 148H, Potassium Level 4.2, Chloride Level 116H, Carbon Dioxide Level 25, Anion Gap 7, Blood Urea Nitrogen 28H, Creatinine 1.0, Estimat Glomerular Filtration Rate , Glucose Level 134H, Lactic Acid Level 2.30H, Uric Acid 4.5, Calcium Level 7.9L, Phosphorus Level 2.6, Magnesium Level 2.1, Total Bilirubin 0.8, Aspartate Amino Transf (AST/SGOT) 40H, Alanine Aminotransferase ( ALT/SGPT) 25, Alkaline Phosphatase 82, Troponin I 0.402H, Pro-B-Type Natriuretic Peptide 29549F, Total Protein 6.6, Albumin 1.7L, Globulin 4.9, Albumin/Globulin Ratio 0.3L 01/27/18 07:35: Troponin I 0.350H 01/27/18 08:55: Lactic Acid Level 2.10 01/27/18 09:05: Arterial Blood pH 7.308L, Arterial Blood Partial Pressure CO2 48.2H, Arterial Blood Partial Pressure O2 62.7L, Arterial Blood HCO3 23.6, Arterial Blood Oxygen Saturation 90.0L, Arterial Blood Base Excess -2.9L, Dima Test Positive Height (Feet): 5 Height (Inches): 9.00 Weight (Pounds): 145 General Appearance: other - vented Cardiovascular: tachycardia Respiratory/Chest: decreased breath sounds Abdomen: distended Juan C Mclaughlin MD Jan 27, 2018 10:25
--- NOTE | 2018-01-27 11:34 | Pulmonolgy Critical Care Note ---
Critical Care - Asmt/Plan Problems: (1) Pulmonary fibrosis (2) Multifocal pneumonia (3) Respiratory disorder with ventilator dependence (4) Lactic acid acidosis (5) Abnormal LFTs (6) OLEG (acute kidney injury) (7) SIRS (systemic inflammatory response syndrome) (8) UTI (urinary tract infection) Assessment/Plan: ASSESSMENT: The patient is a 77-year-old male, current daily smoker with history of hypertension, back pain, lack of health maintenance, presenting with respiratory illness, bilateral pneumonia, lactic acidosis, abnormal kidney function and renal function likely OLEG, and shock liver. 01/26: Prog hypoxemia, inc WOB, tx'd to ICU, intubated 01/27: Gas exchange better, trops downtrending, LA resolved PROBLEM LIST: 1. Bilateral parenchymal infiltrates, multilobar pneumonia on top of underlying fibrotic lung disease 2. VDRF 3. Metabolic & respiratory acidosis 4. Likely underlying pulmonary fibrosis and COPD 5. NSTEMI, likely demand ischemia - TROPS DOWNTRENDING 6. Lactic acidosis - RESOLVED 7. Abnormal creatinine, likely acute kidney injury - IMPROVED 8. Abnormal liver function tests - IMPROVED 9. SIRS 10. History of hypertension. 11. PNEUMONIA TREATMENT PLAN: Continue ventilatory support/settings reviewed, monitor gas exchange RTC and PRN DUOnebs Cefepime & Azithro (D3), add Vanco (D2), F/U Cx's Continue IVUH to complete 48 hours Cotinue TF's ICU sedation: Fentanyl gtt for RASS - 2, Versed 2 mg IV q4 PRN F/U cardiology recs Monitor volumes and renal function, decrease IVF Wound care Discuss GOC, will speak again with family, FC Px: IVUH, H2B D/W family, RN, RT and team CCT 45 Critical Care - Objective Last 24 Hour Vital Signs Date Time Temp Pulse Resp B/P (MAP) Pulse Ox O2 Delivery O2 Flow Rate FiO2 01/27/18 10:54 72 34 50 01/27/18 10:09 86 120/69 01/27/18 08:49 115 35 70 01/27/18 08:30 85 24 109/66 (80) 100 01/27/18 08:00 108 24 117/72 (87) 100 01/27/18 08:00 83 01/27/18 08:00 70 01/27/18 08:00 Mechanical Ventilator 01/27/18 07:49 105 30 100 Mechanical Ventilator 70 01/27/18 07:30 98.8 96 28 128/72 (90) 100 01/27/18 07:29 107 31 99 Endotracheal Tube 70 01/27/18 07:27 107 34 70 01/27/18 07:01 79 24 123/69 (87) 100 01/27/18 06:30 106 21 112/68 (83) 100 01/27/18 06:00 106 22 108/62 (77) 100 01/27/18 06:00 23 Endotracheal Tube 80 01/27/18 05:30 106 22 118/72 (87) 100 01/27/18 05:20 107 32 70 01/27/18 05:00 21 Endotracheal Tube 80 01/27/18 05:00 30 Endotracheal Tube 80 01/27/18 05:00 108 24 94/64 (74) 100 01/27/18 04:30 80 22 116/60 (78) 100 01/27/18 04:00 98.8 96 28 105/63 (77) 100 01/27/18 04:00 32 Endotracheal Tube 80 01/27/18 04:00 Mechanical Ventilator 01/27/18 04:00 70 01/27/18 04:00 83 01/27/18 03:48 106 30 70 01/27/18 03:30 92 26 92/66 (75) 97 01/27/18 03:00 26 Endotracheal Tube 80 01/27/18 03:00 102 22 95/52 (66) 100 01/27/18 02:47 98.7 01/27/18 02:30 82 25 92/59 (70) 100 01/27/18 02:17 31 Endotracheal Tube 70 01/27/18 02:00 28 Endotracheal Tube 80 01/27/18 02:00 81 29 97/61 (73) 100 01/27/18 01:30 78 28 100/55 (70) 100 01/27/18 01:11 82 30 100 Mechanical Ventilator 70 01/27/18 01:00 24 Endotracheal Tube 80 01/27/18 01:00 73 31 74/47 (56) 29 01/27/18 00:52 101 32 100 Endotracheal Tube 70 01/27/18 00:50 101 32 70 01/27/18 00:30 71 21 97/56 (70) 100 01/27/18 00:00 Mechanical Ventilator 01/27/18 00:00 98.8 70 20 88/61 (70) 100 01/27/18 00:00 75 01/27/18 00:00 26 Endotracheal Tube 80 01/26/18 23:30 97 31 93/55 (68) 100 18 23:26 80 01/26/18 23:00 26 Endotracheal Tube 100 01/26/18 22:45 101 30 90 01/26/18 22:00 27 Endotracheal Tube 100 01/26/18 21:30 85 26 113/62 (79) 98 01/26/18 21:00 28 Endotracheal Tube 100 01/26/18 21:00 83 23 96/64 (75) 98 01/26/18 20:58 112 31 85 01/26/18 20:43 82 105/50 01/26/18 20:00 100 01/26/18 20:00 Mechanical Ventilator 01/26/18 20:00 26 Endotracheal Tube 100 01/26/18 20:00 65 01/26/18 19:31 80 28 99 Mechanical Ventilator 90 01/26/18 19:19 105 31 96 Mechanical Ventilator 90 01/26/18 19:16 105 31 90 01/26/18 19:00 81 27 126/65 (85) 99 01/26/18 19:00 26 Endotracheal Tube 100 01/26/18 19:00 26 Endotracheal Tube 100 01/26/18 18:30 86 28 101/53 (69) 98 01/26/18 18:15 95 29 131/58 (82) 85 01/26/18 18:00 83 27 106/56 (73) 99 01/26/18 18:00 27 Endotracheal Tube 100 01/26/18 17:46 82 30 100 01/26/18 17:45 83 32 112/47 (68) 99 01/26/18 17:30 85 39 103/60 (74) 99 01/26/18 17:15 79 24 135/82 (99) 90 01/26/18 17:00 26 Endotracheal Tube 100 01/26/18 17:00 87 26 126/53 (77) 98 01/26/18 16:30 98.5 108 28 132/66 (88) 95 01/26/18 16:18 85 30 100 01/26/18 16:00 Mechanical Ventilator 01/26/18 16:00 29 Endotracheal Tube 100.0 01/26/18 16:00 84 29 126/65 (85) 99 18 15:41 109 01/26/18 15:30 83 29 116/51 (72) 86 01/26/18 15:16 100 01/26/18 15:00 30 Endotracheal Tube 100 01/26/18 15:00 85 30 114/45 (68) 86 01/26/18 14:30 86 31 116/63 (80) 84 01/26/18 14:00 100 31 122/52 (75) 87 01/26/18 14:00 30 Endotracheal Tube 100 01/26/18 13:39 100 01/26/18 13:30 98.0 84 30 108/53 (71) 89 01/26/18 13:00 105 29 120/52 (74) 88 01/26/18 13:00 29 Endotracheal Tube 100 01/26/18 12:52 91 31 96 Non-Rebreather 100 01/26/18 12:40 83 31 78 Mechanical Ventilator 100 01/26/18 12:36 83 34 100 01/26/18 12:30 94 31 122/62 (82) 82 01/26/18 12:00 30 Endotracheal Tube 100 01/26/18 12:00 Mechanical Ventilator 01/26/18 12:00 88 01/26/18 12:00 87 31 120/54 (76) 84 01/26/18 11:40 100 01/26/18 11:35 108 31 100 Status: sedated, other - intubated Condition: critical HEENT: atraumatic, normocephalic Lungs: rhonchi Heart: HR/BP stable Abdomen: soft, non-tender, active bowel sounds Extremities: no C/C/E Micro: Microbiology Date/Time Source Procedure Growth Status 01/24/18 18:40 Blood Blood Culture - Preliminary NO GROWTH AFTER 48 HOURS Resulted 01/24/18 18:30 Blood Blood Culture - Preliminary NO GROWTH AFTER 48 HOURS Resulted 01/24/18 18:55 Nasal Nares Influenza Types A,B Antigen (SILVESTRE) - Final Complete 01/24/18 19:05 Urine,Clean Catch Urine Culture - Final NO GROWTH AFTER 48 HOURS Complete Blood Sugars: BS controlled Critical Care - Subjective ROS Limited/Unobtainable: Yes ICU Day: 2 Intubation Day: 2 Interval Events: Tm 98.8 HR 72-115 FiO2 70% stable on vent Gas exchange better, 7.308/48/62/23/90 Lactic acidosis resolved Trops peaked @ 04, now 0.3 No sig secretion, sedated on vent, no F/C Condition: critical IV Access: peripheral EKG Rhythm: Sinus Tachycardia FI02: 50 Vent Support Breath Rate: 30 Vent Support Mode: AC Vent Tidal Volume: 600 Sputum Amount: Small PEEP: 10.0 PIP: 38 Secretions: minimal Fluids: [id number]@100 Drips: Fent Tube Feeding Amount: 30 I&O: Intake and Output 01/26/18 01/27/18 18:59 06:59 Intake Total 1714.490 ml 1300.68 ml Output Total 380 ml 100 ml Balance 1334.490 ml 1200.68 ml Free Water 50 ml 60 ml IV Total 1644.490 ml 910.68 ml Tube Feeding 20 ml 270 ml Other 60 ml Output Urine Total 380 ml 100 ml Subjective: IRENE CXR: Inc b parenchymal opacities ET-Tube: 7.5 ET Position: 23 Labs: Laboratory Tests Test 01/26/18 12:50 01/26/18 15:35 01/26/18 23:11 01/27/18 04:00 Arterial Blood pH 7.198 (7.350-7.450) 7.270 (7.350-7.450) Arterial Blood Partial Pressure CO2 59.4 mmHg (35.0-45.0) *H 54.2 mmHg (35.0-45.0) H Arterial Blood Partial Pressure O2 87.3 mmHg (75.0-100.0) 131.5 mmHg (75.0-100.0) H Arterial Blood HCO3 22.6 mmol/L (22.0-26.0) 24.3 mmol/L (22.0-26.0) Arterial Blood Oxygen Saturation 94.1 % (95-100) L 97.9 % (95-100) Arterial Blood Base Excess -6.1 (-2-2) L -3.1 (-2-2) L Dima Test Positive Positive Activated Partial Thromboplast Time 88 SEC (23-33) H 55 SEC (23-33) H White Blood Count 15.9 K/UL (4.8-10.8) H Red Blood Count 3.83 M/UL (4.70-6.10) L Hemoglobin 12.1 G/DL (14.2-18.0) L Hematocrit 37.0 % (42.0-52.0) L Mean Corpuscular Volume 97 FL (80-99) Mean Corpuscular Hemoglobin 31.7 PG (27.0-31.0) H Mean Corpuscular Hemoglobin Concent 32.8 G/DL (32.0-36.0) Red Cell Distribution Width 13.1 % (11.6-14.8) Platelet Count 201 K/UL (150-450) Mean Platelet Volume 6.8 FL (6.5-10.1) Neutrophils (%) (Auto) % (45.0-75.0) Lymphocytes (%) (Auto) % (20.0-45.0) Monocytes (%) (Auto) % (1.0-10.0) Eosinophils (%) (Auto) % (0.0-3.0) Basophils (%) (Auto) % (0.0-2.0) Differential Total Cells Counted 100 Neutrophils % (Manual) 88 % (45-75) H Lymphocytes % (Manual) 4 % (20-45) L Monocytes % (Manual) 2 % (1-10) Eosinophils % (Manual) 0 % (0-3) Basophils % (Manual) 0 % (0-2) Band Neutrophils 6 % (0-8) Platelet Estimate Adequate Platelet Morphology Normal Red Blood Cell Morphology Normal Sodium Level 148 MMOL/L (136-145) H Potassium Level 4.2 MMOL/L (3.5-5.1) Chloride Level 116 MMOL/L (98-107) H Carbon Dioxide Level 25 MMOL/L (21-32) Anion Gap 7 mmol/L (5-15) Blood Urea Nitrogen 28 mg/dL (7-18) H Creatinine 1.0 MG/DL (0.55-1.30) Estimat Glomerular Filtration Rate mL/min (>60) Glucose Level 134 MG/DL (74-106) H Lactic Acid Level 2.30 mmol/L (0.4-2.0) H Uric Acid 4.5 MG/DL (2.6-7.2) Calcium Level 7.9 MG/DL (8.5-10.1) L Phosphorus Level 2.6 MG/DL (2.5-4.9) Magnesium Level 2.1 MG/DL (1.8-2.4) Total Bilirubin 0.8 MG/DL (0.2-1.0) Aspartate Amino Transf (AST/SGOT) 40 U/L (15-37) H Alanine Aminotransferase (ALT/SGPT) 25 U/L (12-78) Alkaline Phosphatase 82 U/L (46-116) Troponin I 0.402 ng/mL (0.000-0.056) Pro-B-Type Natriuretic Peptide 39113 pg/mL (0-125) H Total Protein 6.6 G/DL (6.4-8.2) Albumin 1.7 G/DL (3.4-5.0) L Globulin 4.9 g/dL Albumin/Globulin Ratio 0.3 (1.0-2.7) L Test 01/27/18 07:35 01/27/18 08:55 01/27/18 09:05 01/27/18 10:50 Troponin I 0.350 ng/mL (0.000-0.056) Lactic Acid Level 2.10 mmol/L (0.66-2.22) Arterial Blood pH 7.308 (7.350-7.450) Arterial Blood Partial Pressure CO2 48.2 mmHg (35.0-45.0) H Arterial Blood Partial Pressure O2 62.7 mmHg (75.0-100.0) L Arterial Blood HCO3 23.6 mmol/L (22.0-26.0) Arterial Blood Oxygen Saturation 90.0 % (95-100) L Arterial Blood Base Excess -2.9 (-2-2) L Dima Test Positive Activated Partial Thromboplast Time 57 SEC (23-33) H Lev Johnson MD Jan 27, 2018 11:34
[2018-01-27] MEDS: Cefepime HCl 1 GM in D5W 55 ML IVPB SCH (11:50)
--- NOTE | 2018-01-27 11:59 | Diagnostic Imaging Report ---
APPROVED REPORT CPT Code: 93011 Present Symptoms Comments: Pulmonary Hypertension BILATERAL: Imaging reveals a patent deep venous system bilaterally. There is no evidence of thrombus within the femoral, popliteal or tibial segments. The greater saphenous veins are also within normal limits. Doppler indicates normal spontaneous flow within these segments.
--- NOTE | 2018-01-27 12:24 | General Surgery Progress Note ---
General Surgery-Progress Note Subjective Additional Comments leukocytosis improving. LFTs okay. Objective Last 24 Hour Vital Signs Date Time Temp Pulse Resp B/P (MAP) Pulse Ox O2 Delivery O2 Flow Rate FiO2 01/27/18 11:30 98 24 104/61 (75) 98 01/27/18 11:00 75 24 131/60 (83) 98 01/27/18 10:54 72 34 50 01/27/18 10:30 110 24 109/66 (80) 100 01/27/18 10:09 86 120/69 01/27/18 10:00 88 24 109/66 (80) 100 01/27/18 09:30 113 24 109/66 (80) 100 01/27/18 09:00 87 24 109/66 (80) 100 01/27/18 08:49 115 35 70 01/27/18 08:30 85 24 109/66 (80) 100 01/27/18 08:00 108 24 117/72 (87) 100 01/27/18 08:00 83 01/27/18 08:00 70 01/27/18 08:00 Mechanical Ventilator 01/27/18 07:49 105 30 100 Mechanical Ventilator 70 01/27/18 07:30 98.8 96 28 128/72 (90) 100 01/27/18 07:29 107 31 99 Endotracheal Tube 70 01/27/18 07:27 107 34 70 01/27/18 07:01 79 24 123/69 (87) 100 01/27/18 06:30 106 21 112/68 (83) 100 01/27/18 06:00 106 22 108/62 (77) 100 01/27/18 06:00 23 Endotracheal Tube 80 01/27/18 05:30 106 22 118/72 (87) 100 01/27/18 05:20 107 32 70 01/27/18 05:00 21 Endotracheal Tube 80 01/27/18 05:00 30 Endotracheal Tube 80 01/27/18 05:00 108 24 94/64 (74) 100 01/27/18 04:30 80 22 116/60 (78) 100 01/27/18 04:00 98.8 96 28 105/63 (77) 100 01/27/18 04:00 32 Endotracheal Tube 80 01/27/18 04:00 Mechanical Ventilator 01/27/18 04:00 70 01/27/18 04:00 83 01/27/18 03:48 106 30 70 01/27/18 03:30 92 26 92/66 (75) 97 01/27/18 03:00 26 Endotracheal Tube 80 01/27/18 03:00 102 22 95/52 (66) 100 01/27/18 02:47 98.7 01/27/18 02:30 82 25 92/59 (70) 100 01/27/18 02:17 31 Endotracheal Tube 70 01/27/18 02:00 28 Endotracheal Tube 80 01/27/18 02:00 81 29 97/61 (73) 100 01/27/18 01:30 78 28 100/55 (70) 100 01/27/18 01:11 82 30 100 Mechanical Ventilator 70 01/27/18 01:00 24 Endotracheal Tube 80 01/27/18 01:00 73 31 74/47 (56) 29 01/27/18 00:52 101 32 100 Endotracheal Tube 70 01/27/18 00:50 101 32 70 01/27/18 00:30 71 21 97/56 (70) 100 01/27/18 00:00 Mechanical Ventilator 01/27/18 00:00 98.8 70 20 88/61 (70) 100 01/27/18 00:00 75 01/27/18 00:00 26 Endotracheal Tube 80 01/26/18 23:30 97 31 93/55 (68) 100 01/26/18 23:26 80 01/26/18 23:00 26 Endotracheal Tube 100 01/26/18 22:45 101 30 90 01/26/18 22:00 27 Endotracheal Tube 100 01/26/18 21:30 85 26 113/62 (79) 98 01/26/18 21:00 28 Endotracheal Tube 100 01/26/18 21:00 83 23 96/64 (75) 98 01/26/18 20:58 112 31 85 01/26/18 20:43 82 105/50 01/26/18 20:00 100 01/26/18 20:00 Mechanical Ventilator 01/26/18 20:00 26 Endotracheal Tube 100 01/26/18 20:00 65 01/26/18 19:31 80 28 99 Mechanical Ventilator 90 01/26/18 19:19 105 31 96 Mechanical Ventilator 90 01/26/18 19:16 105 31 90 01/26/18 19:00 81 27 126/65 (85) 99 01/26/18 19:00 26 Endotracheal Tube 100 01/26/18 19:00 26 Endotracheal Tube 100 01/26/18 18:30 86 28 101/53 (69) 98 01/26/18 18:15 95 29 131/58 (82) 85 01/26/18 18:00 83 27 106/56 (73) 99 01/26/18 18:00 27 Endotracheal Tube 100 01/26/18 17:46 82 30 100 01/26/18 17:45 83 32 112/47 (68) 99 01/26/18 17:30 85 39 103/60 (74) 99 01/26/18 17:15 79 24 135/82 (99) 90 01/26/18 17:00 26 Endotracheal Tube 100 01/26/18 17:00 87 26 126/53 (77) 98 01/26/18 16:30 98.5 108 28 132/66 (88) 95 01/26/18 16:18 85 30 100 01/26/18 16:00 Mechanical Ventilator 01/26/18 16:00 29 Endotracheal Tube 100.0 01/26/18 16:00 84 29 126/65 (85) 99 01/26/18 15:41 109 01/26/18 15:30 83 29 116/51 (72) 86 01/26/18 15:16 100 01/26/18 15:00 30 Endotracheal Tube 100 01/26/18 15:00 85 30 114/45 (68) 86 01/26/18 14:30 86 31 116/63 (80) 84 01/26/18 14:00 100 31 122/52 (75) 87 01/26/18 14:00 30 Endotracheal Tube 100 01/26/18 13:39 100 01/26/18 13:30 98.0 84 30 108/53 (71) 89 01/26/18 13:00 105 29 120/52 (74) 88 01/26/18 13:00 29 Endotracheal Tube 100 01/26/18 12:52 91 31 96 Non-Rebreather 100 01/26/18 12:40 83 31 78 Mechanical Ventilator 100 01/26/18 12:36 83 34 100 01/26/18 12:30 94 31 122/62 (82) 82 I&O Intake and Output 01/26/18 01/27/18 18:59 06:59 Intake Total 1714.490 ml 1300.68 ml Output Total 380 ml 100 ml Balance 1334.490 ml 1200.68 ml Free Water 50 ml 60 ml IV Total 1644.490 ml 910.68 ml Tube Feeding 20 ml 270 ml Other 60 ml Output Urine Total 380 ml 100 ml Dressing: saturated Wound: other Drains: other Cardiovascular: RSR Respiratory: clear Abdomen: soft, flat, present bowel sounds Extremities: other Laboratory Tests Test 01/26/18 12:50 01/26/18 15:35 01/26/18 23:11 01/27/18 04:00 Arterial Blood pH 7.198 (7.350-7.450) 7.270 (7.350-7.450) Arterial Blood Partial Pressure CO2 59.4 mmHg (35.0-45.0) *H 54.2 mmHg (35.0-45.0) H Arterial Blood Partial Pressure O2 87.3 mmHg (75.0-100.0) 131.5 mmHg (75.0-100.0) H Arterial Blood HCO3 22.6 mmol/L (22.0-26.0) 24.3 mmol/L (22.0-26.0) Arterial Blood Oxygen Saturation 94.1 % (95-100) L 97.9 % (95-100) Arterial Blood Base Excess -6.1 (-2-2) L -3.1 (-2-2) L Dima Test Positive Positive Activated Partial Thromboplast Time 88 SEC (23-33) H 55 SEC (23-33) H White Blood Count 15.9 K/UL (4.8-10.8) H Red Blood Count 3.83 M/UL (4.70-6.10) L Hemoglobin 12.1 G/DL (14.2-18.0) L Hematocrit 37.0 % (42.0-52.0) L Mean Corpuscular Volume 97 FL (80-99) Mean Corpuscular Hemoglobin 31.7 PG (27.0-31.0) H Mean Corpuscular Hemoglobin Concent 32.8 G/DL (32.0-36.0) Red Cell Distribution Width 13.1 % (11.6-14.8) Platelet Count 201 K/UL (150-450) Mean Platelet Volume 6.8 FL (6.5-10.1) Neutrophils (%) (Auto) % (45.0-75.0) Lymphocytes (%) (Auto) % (20.0-45.0) Monocytes (%) (Auto) % (1.0-10.0) Eosinophils (%) (Auto) % (0.0-3.0) Basophils (%) (Auto) % (0.0-2.0) Differential Total Cells Counted 100 Neutrophils % (Manual) 88 % (45-75) H Lymphocytes % (Manual) 4 % (20-45) L Monocytes % (Manual) 2 % (1-10) Eosinophils % (Manual) 0 % (0-3) Basophils % (Manual) 0 % (0-2) Band Neutrophils 6 % (0-8) Platelet Estimate Adequate Platelet Morphology Normal Red Blood Cell Morphology Normal Sodium Level 148 MMOL/L (136-145) H Potassium Level 4.2 MMOL/L (3.5-5.1) Chloride Level 116 MMOL/L (98-107) H Carbon Dioxide Level 25 MMOL/L (21-32) Anion Gap 7 mmol/L (5-15) Blood Urea Nitrogen 28 mg/dL (7-18) H Creatinine 1.0 MG/DL (0.55-1.30) Estimat Glomerular Filtration Rate mL/min (>60) Glucose Level 134 MG/DL (74-106) H Lactic Acid Level 2.30 mmol/L (0.4-2.0) H Uric Acid 4.5 MG/DL (2.6-7.2) Calcium Level 7.9 MG/DL (8.5-10.1) L Phosphorus Level 2.6 MG/DL (2.5-4.9) Magnesium Level 2.1 MG/DL (1.8-2.4) Total Bilirubin 0.8 MG/DL (0.2-1.0) Aspartate Amino Transf (AST/SGOT) 40 U/L (15-37) H Alanine Aminotransferase (ALT/SGPT) 25 U/L (12-78) Alkaline Phosphatase 82 U/L (46-116) Troponin I 0.402 ng/mL (0.000-0.056) Pro-B-Type Natriuretic Peptide 32653 pg/mL (0-125) H Total Protein 6.6 G/DL (6.4-8.2) Albumin 1.7 G/DL (3.4-5.0) L Globulin 4.9 g/dL Albumin/Globulin Ratio 0.3 (1.0-2.7) L Test 01/27/18 07:35 01/27/18 08:55 01/27/18 09:05 01/27/18 10:50 Troponin I 0.350 ng/mL (0.000-0.056) Lactic Acid Level 2.10 mmol/L (0.66-2.22) Arterial Blood pH 7.308 (7.350-7.450) Arterial Blood Partial Pressure CO2 48.2 mmHg (35.0-45.0) H Arterial Blood Partial Pressure O2 62.7 mmHg (75.0-100.0) L Arterial Blood HCO3 23.6 mmol/L (22.0-26.0) Arterial Blood Oxygen Saturation 90.0 % (95-100) L Arterial Blood Base Excess -2.9 (-2-2) L Dima Test Positive Activated Partial Thromboplast Time 57 SEC (23-33) H Plan Problems: (1) Decubitus ulcer of sacral region, stage 3 Assessment & Plan: Stage III full thickness pressure injury sacrum present on admission (L)2cm x (W)1.8cm ,wound bed with 80% yellow slough ,20% granular Borders slightly macerated. Non-blanching erythema without elevation in skin temp, or induration periwound. NO odor noted. Abrasions noted to R elbow (L)3.2cm x (W)1.9cm.Wound with Biofilm ,erythema al; lynn borders .Periwound clean and intact. Abrasion noted to L elbow(L)5.5cm x (W)1.6cm ,biofim noted to wound bed .erythema along borders .Periwound without erythema or elevation in skin temp. Abrasion lateral L knee with dry scab. Abrasion medial R knee with dry scab. Bilat heels boggy with non-blanching erythema. Non-tender when palpated. Pt repositioned with pillow on his side but restless and repositioned self on back. Caregivers presents and made aware of pressure injury to sacrum and interventions implemented to prevent further skin breakdown. Tx.Plan: Cleanse R and L elbows with Saline.Apply Silvasorb Gel to both elbows .Cover with Optifoam drsg .Change every 3 Days and prn. Cleanse Sacral Pressure injury with Saline.Apply Therahoney .Cavilon periwound.Cover with Optifoam drsg Daily and prn. Apply Cavilon to Both heels.Cover with Optifoam drsg .Change Every 7 days and prn. Cavilon to abrasions R and L lower ext.Cover with Optifoam change every 7 days and prn. Off-load heels with pillow. Reposition at least every 2 hours or as tolerated. Surface support mattress. (2) Abnormal LFTs Assessment & Plan: US reviewed - absent GB dilated ducts CT reviewed - dilated duct without notable obstruction LFT's noted and elevated t bili trending down no jaundice AST/ALT nml Alk phos nml -no acute surgical intervention necessary -t bili and d bili correlate. unlikely obstructive at this time. especially with history of cholecystectomy prior -trend labs thank you (3) Severe sepsis Myke Merino Jan 27, 2018 12:24
--- NOTE | 2018-01-27 12:33 | General Progress Note ---
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 Subjective Neurologic/Psychiatric: Reports: anxiety Allergies: Coded Allergies: No Known Allergies (Unverified , 01/24/18) Subjective the pt is on fentanyl for agitation. the pt is calm now cont to have episodes of agitation Objective Last 24 Hour Vital Signs Date Time Temp Pulse Resp B/P (MAP) Pulse Ox O2 Delivery O2 Flow Rate FiO2 01/27/18 11:30 98 24 104/61 (75) 98 01/27/18 11:00 75 24 131/60 (83) 98 01/27/18 10:54 72 34 50 01/27/18 10:30 110 24 109/66 (80) 100 01/27/18 10:09 86 120/69 01/27/18 10:00 88 24 109/66 (80) 100 01/27/18 09:30 113 24 109/66 (80) 100 01/27/18 09:00 87 24 109/66 (80) 100 01/27/18 08:49 115 35 70 01/27/18 08:30 85 24 109/66 (80) 100 01/27/18 08:00 108 24 117/72 (87) 100 01/27/18 08:00 83 01/27/18 08:00 70 01/27/18 08:00 Mechanical Ventilator 01/27/18 07:49 105 30 100 Mechanical Ventilator 70 01/27/18 07:30 98.8 96 28 128/72 (90) 100 01/27/18 07:29 107 31 99 Endotracheal Tube 70 01/27/18 07:27 107 34 70 01/27/18 07:01 79 24 123/69 (87) 100 01/27/18 06:30 106 21 112/68 (83) 100 01/27/18 06:00 106 22 108/62 (77) 100 01/27/18 06:00 23 Endotracheal Tube 80 01/27/18 05:30 106 22 118/72 (87) 100 01/27/18 05:20 107 32 70 01/27/18 05:00 21 Endotracheal Tube 80 01/27/18 05:00 30 Endotracheal Tube 80 01/27/18 05:00 108 24 94/64 (74) 100 01/27/18 04:30 80 22 116/60 (78) 100 01/27/18 04:00 98.8 96 28 105/63 (77) 100 01/27/18 04:00 32 Endotracheal Tube 80 01/27/18 04:00 Mechanical Ventilator 01/27/18 04:00 70 01/27/18 04:00 83 01/27/18 03:48 106 30 70 01/27/18 03:30 92 26 92/66 (75) 97 01/27/18 03:00 26 Endotracheal Tube 80 01/27/18 03:00 102 22 95/52 (66) 100 01/27/18 02:47 98.7 01/27/18 02:30 82 25 92/59 (70) 100 01/27/18 02:17 31 Endotracheal Tube 70 01/27/18 02:00 28 Endotracheal Tube 80 01/27/18 02:00 81 29 97/61 (73) 100 01/27/18 01:30 78 28 100/55 (70) 100 01/27/18 01:11 82 30 100 Mechanical Ventilator 70 01/27/18 01:00 24 Endotracheal Tube 80 01/27/18 01:00 73 31 74/47 (56) 29 01/27/18 00:52 101 32 100 Endotracheal Tube 70 01/27/18 00:50 101 32 70 01/27/18 00:30 71 21 97/56 (70) 100 01/27/18 00:00 Mechanical Ventilator 01/27/18 00:00 98.8 70 20 88/61 (70) 100 01/27/18 00:00 75 01/27/18 00:00 26 Endotracheal Tube 80 01/26/18 23:30 97 31 93/55 (68) 100 01/26/18 23:26 80 01/26/18 23:00 26 Endotracheal Tube 100 01/26/18 22:45 101 30 90 01/26/18 22:00 27 Endotracheal Tube 100 01/26/18 21:30 85 26 113/62 (79) 98 18 21:00 28 Endotracheal Tube 100 01/26/18 21:00 83 23 96/64 (75) 98 01/26/18 20:58 112 31 85 18 20:43 82 105/50 01/26/18 20:00 100 01/26/18 20:00 Mechanical Ventilator 01/26/18 20:00 26 Endotracheal Tube 100 01/26/18 20:00 65 01/26/18 19:31 80 28 99 Mechanical Ventilator 90 01/26/18 19:19 105 31 96 Mechanical Ventilator 90 01/26/18 19:16 105 31 90 01/26/18 19:00 81 27 126/65 (85) 99 01/26/18 19:00 26 Endotracheal Tube 100 01/26/18 19:00 26 Endotracheal Tube 100 01/26/18 18:30 86 28 101/53 (69) 98 01/26/18 18:15 95 29 131/58 (82) 85 01/26/18 18:00 83 27 106/56 (73) 99 01/26/18 18:00 27 Endotracheal Tube 100 01/26/18 17:46 82 30 100 01/26/18 17:45 83 32 112/47 (68) 99 01/26/18 17:30 85 39 103/60 (74) 99 01/26/18 17:15 79 24 135/82 (99) 90 01/26/18 17:00 26 Endotracheal Tube 100 01/26/18 17:00 87 26 126/53 (77) 98 01/26/18 16:30 98.5 108 28 132/66 (88) 95 18 16:18 85 30 100 01/26/18 16:00 Mechanical Ventilator 01/26/18 16:00 29 Endotracheal Tube 100.0 01/26/18 16:00 84 29 126/65 (85) 99 18 15:41 109 01/26/18 15:30 83 29 116/51 (72) 86 18 15:16 100 01/26/18 15:00 30 Endotracheal Tube 100 01/26/18 15:00 85 30 114/45 (68) 86 01/26/18 14:30 86 31 116/63 (80) 84 01/26/18 14:00 100 31 122/52 (75) 87 01/26/18 14:00 30 Endotracheal Tube 100 01/26/18 13:39 100 01/26/18 13:30 98.0 84 30 108/53 (71) 89 01/26/18 13:00 105 29 120/52 (74) 88 01/26/18 13:00 29 Endotracheal Tube 100 01/26/18 12:52 91 31 96 Non-Rebreather 100 01/26/18 12:40 83 31 78 Mechanical Ventilator 100 01/26/18 12:36 83 34 100 Intake and Output 01/26/18 01/27/18 18:59 06:59 Intake Total 1714.490 ml 1300.68 ml Output Total 380 ml 100 ml Balance 1334.490 ml 1200.68 ml Free Water 50 ml 60 ml IV Total 1644.490 ml 910.68 ml Tube Feeding 20 ml 270 ml Other 60 ml Output Urine Total 380 ml 100 ml Laboratory Tests 01/26/18 12:50: Arterial Blood pH 7.198*L, Arterial Blood Partial Pressure CO2 59.4*H, Arterial Blood Partial Pressure O2 87.3, Arterial Blood HCO3 22.6, Arterial Blood Oxygen Saturation 94.1L, Arterial Blood Base Excess -6.1L, Dima Test Positive 01/26/18 15:35: Activated Partial Thromboplast Time 88H 01/26/18 23:11: Arterial Blood pH 7.270L, Arterial Blood Partial Pressure CO2 54.2H, Arterial Blood Partial Pressure O2 131.5H, Arterial Blood HCO3 24.3, Arterial Blood Oxygen Saturation 97.9, Arterial Blood Base Excess -3.1L, Dima Test Positive 01/27/18 04:00: Activated Partial Thromboplast Time 55H, White Blood Count 15.9H, Red Blood Count 3.83L, Hemoglobin 12.1L, Hematocrit 37.0L, Mean Corpuscular Volume 97, Mean Corpuscular Hemoglobin 31.7H, Mean Corpuscular Hemoglobin Concent 32.8, Red Cell Distribution Width 13.1, Platelet Count 201, Mean Platelet Volume 6.8, Neutrophils (%) (Auto) , Lymphocytes (%) (Auto) , Monocytes (%) (Auto) , Eosinophils (%) (Auto) , Basophils (%) (Auto) , Differential Total Cells Counted 100, Neutrophils % (Manual) 88H, Lymphocytes % (Manual) 4L, Monocytes % (Manual) 2, Eosinophils % (Manual) 0, Basophils % (Manual) 0, Band Neutrophils 6 , Platelet Estimate Adequate, Platelet Morphology Normal, Red Blood Cell Morphology Normal, Sodium Level 148H, Potassium Level 4.2, Chloride Level 116H, Carbon Dioxide Level 25, Anion Gap 7, Blood Urea Nitrogen 28H, Creatinine 1.0, Estimat Glomerular Filtration Rate , Glucose Level 134H, Lactic Acid Level 2.30H , Uric Acid 4.5, Calcium Level 7.9L, Phosphorus Level 2.6, Magnesium Level 2.1, Total Bilirubin 0.8, Aspartate Amino Transf (AST/SGOT) 40H, Alanine Aminotransferase (ALT/SGPT) 25, Alkaline Phosphatase 82, Troponin I 0.402H, Pro- B-Type Natriuretic Peptide [id number], Total Protein 6.6, Albumin 1.7L, Globulin 4.9 , Albumin/Globulin Ratio 0.3L 01/27/18 07:35: Troponin I 0.350H 01/27/18 08:55: Lactic Acid Level 2.10 01/27/18 09:05: Arterial Blood pH 7.308L, Arterial Blood Partial Pressure CO2 48.2H, Arterial Blood Partial Pressure O2 62.7L, Arterial Blood HCO3 23.6, Arterial Blood Oxygen Saturation 90.0L, Arterial Blood Base Excess -2.9L, Dima Test Positive 01/27/18 10:50: Activated Partial Thromboplast Time 57H Height (Feet): 5 Height (Inches): 9.00 Weight (Pounds): 145 General Appearance: lethargic, confused, moderate distress, agitated Collin Smith MD Jan 27, 2018 12:33
[2018-01-27] MEDS ORDERED: Haloperidol 5mg/ml Inj IM PRN (13:00)
--- NOTE | 2018-01-27 14:04 | Cardiac Electrophysiology PN ---
Assessment/Plan Assessment/Plan 1. Troponin Leak. The levels are flat. This could be due to the patient's respiratory failure and azotemia. DC heparin drip. Echo normal left ventricular systolic function. 2. Respiratory failure, partially due to congestive heart failure. His BNP is almost 5000. The patient is on the ventilator. Antibiotic per ID and on the ventilator. 3. Hypokalemia, potassium was replaced. 4. Azotemia. Sodium is 147. Off Lasix. GEORGIE Mclaughlin 5. Elevated bilirubin of 2.3. Subjective Subjective In ICU in SR on heparin drip. Objective Last 24 Hour Vital Signs Date Time Temp Pulse Resp B/P (MAP) Pulse Ox O2 Delivery O2 Flow Rate FiO2 01/27/18 13:06 71 34 50 01/27/18 13:05 73 36 98 Mechanical Ventilator 40 01/27/18 12:56 81 31 97 Endotracheal Tube 40 01/27/18 11:30 98 24 104/61 (75) 98 01/27/18 11:00 75 24 131/60 (83) 98 01/27/18 10:54 72 34 50 01/27/18 10:30 110 24 109/66 (80) 100 01/27/18 10:09 86 120/69 01/27/18 10:00 88 24 109/66 (80) 100 01/27/18 09:30 113 24 109/66 (80) 100 01/27/18 09:00 87 24 109/66 (80) 100 01/27/18 08:49 115 35 70 01/27/18 08:30 85 24 109/66 (80) 100 01/27/18 08:00 108 24 117/72 (87) 100 01/27/18 08:00 83 01/27/18 08:00 70 01/27/18 08:00 Mechanical Ventilator 01/27/18 07:49 105 30 100 Mechanical Ventilator 70 01/27/18 07:30 98.8 96 28 128/72 (90) 100 01/27/18 07:29 107 31 99 Endotracheal Tube 70 01/27/18 07:27 107 34 70 01/27/18 07:01 79 24 123/69 (87) 100 01/27/18 06:30 106 21 112/68 (83) 100 01/27/18 06:00 106 22 108/62 (77) 100 01/27/18 06:00 23 Endotracheal Tube 80 01/27/18 05:30 106 22 118/72 (87) 100 01/27/18 05:20 107 32 70 01/27/18 05:00 21 Endotracheal Tube 80 01/27/18 05:00 30 Endotracheal Tube 80 01/27/18 05:00 108 24 94/64 (74) 100 01/27/18 04:30 80 22 116/60 (78) 100 01/27/18 04:00 98.8 96 28 105/63 (77) 100 01/27/18 04:00 32 Endotracheal Tube 80 01/27/18 04:00 Mechanical Ventilator 01/27/18 04:00 70 01/27/18 04:00 83 01/27/18 03:48 106 30 70 01/27/18 03:30 92 26 92/66 (75) 97 01/27/18 03:00 26 Endotracheal Tube 80 01/27/18 03:00 102 22 95/52 (66) 100 01/27/18 02:47 98.7 01/27/18 02:30 82 25 92/59 (70) 100 01/27/18 02:17 31 Endotracheal Tube 70 01/27/18 02:00 28 Endotracheal Tube 80 01/27/18 02:00 81 29 97/61 (73) 100 01/27/18 01:30 78 28 100/55 (70) 100 01/27/18 01:11 82 30 100 Mechanical Ventilator 70 01/27/18 01:00 24 Endotracheal Tube 80 01/27/18 01:00 73 31 74/47 (56) 29 01/27/18 00:52 101 32 100 Endotracheal Tube 70 01/27/18 00:50 101 32 70 01/27/18 00:30 71 21 97/56 (70) 100 01/27/18 00:00 Mechanical Ventilator 01/27/18 00:00 98.8 70 20 88/61 (70) 100 01/27/18 00:00 75 01/27/18 00:00 26 Endotracheal Tube 80 01/26/18 23:30 97 31 93/55 (68) 100 01/26/18 23:26 80 01/26/18 23:00 26 Endotracheal Tube 100 01/26/18 22:45 101 30 90 01/26/18 22:00 27 Endotracheal Tube 100 01/26/18 21:30 85 26 113/62 (79) 98 18 21:00 28 Endotracheal Tube 100 01/26/18 21:00 83 23 96/64 (75) 98 18 20:58 112 31 85 18 20:43 82 105/50 01/26/18 20:00 100 01/26/18 20:00 Mechanical Ventilator 01/26/18 20:00 26 Endotracheal Tube 100 01/26/18 20:00 65 01/26/18 19:31 80 28 99 Mechanical Ventilator 90 01/26/18 19:19 105 31 96 Mechanical Ventilator 90 01/26/18 19:16 105 31 90 01/26/18 19:00 81 27 126/65 (85) 99 01/26/18 19:00 26 Endotracheal Tube 100 01/26/18 19:00 26 Endotracheal Tube 100 01/26/18 18:30 86 28 101/53 (69) 98 18 18:15 95 29 131/58 (82) 85 01/26/18 18:00 83 27 106/56 (73) 99 01/26/18 18:00 27 Endotracheal Tube 100 01/26/18 17:46 82 30 100 01/26/18 17:45 83 32 112/47 (68) 99 01/26/18 17:30 85 39 103/60 (74) 99 01/26/18 17:15 79 24 135/82 (99) 90 01/26/18 17:00 26 Endotracheal Tube 100 01/26/18 17:00 87 26 126/53 (77) 98 01/26/18 16:30 98.5 108 28 132/66 (88) 95 01/26/18 16:18 85 30 100 18 16:00 Mechanical Ventilator 01/26/18 16:00 29 Endotracheal Tube 100.0 01/26/18 16:00 84 29 126/65 (85) 99 18 15:41 109 18 15:30 83 29 116/51 (72) 86 18 15:16 100 01/26/18 15:00 30 Endotracheal Tube 100 01/26/18 15:00 85 30 114/45 (68) 86 01/26/18 14:30 86 31 116/63 (80) 84 01/26/18 14:00 100 31 122/52 (75) 87 01/26/18 14:00 30 Endotracheal Tube 100 Intake and Output 01/26/18 01/27/18 18:59 06:59 Intake Total 1714.490 ml 1300.68 ml Output Total 380 ml 100 ml Balance 1334.490 ml 1200.68 ml Free Water 50 ml 60 ml IV Total 1644.490 ml 910.68 ml Tube Feeding 20 ml 270 ml Other 60 ml Output Urine Total 380 ml 100 ml Laboratory Tests Test 01/26/18 15:35 01/26/18 23:11 01/27/18 04:00 01/27/18 07:35 Activated Partial Thromboplast Time 88 SEC (23-33) H 55 SEC (23-33) H Arterial Blood pH 7.270 (7.350-7.450) Arterial Blood Partial Pressure CO2 54.2 mmHg (35.0-45.0) H Arterial Blood Partial Pressure O2 131.5 mmHg (75.0-100.0) H Arterial Blood HCO3 24.3 mmol/L (22.0-26.0) Arterial Blood Oxygen Saturation 97.9 % (95-100) Arterial Blood Base Excess -3.1 (-2-2) L Dima Test Positive White Blood Count 15.9 K/UL (4.8-10.8) H Red Blood Count 3.83 M/UL (4.70-6.10) L Hemoglobin 12.1 G/DL (14.2-18.0) L Hematocrit 37.0 % (42.0-52.0) L Mean Corpuscular Volume 97 FL (80-99) Mean Corpuscular Hemoglobin 31.7 PG (27.0-31.0) H Mean Corpuscular Hemoglobin Concent 32.8 G/DL (32.0-36.0) Red Cell Distribution Width 13.1 % (11.6-14.8) Platelet Count 201 K/UL (150-450) Mean Platelet Volume 6.8 FL (6.5-10.1) Neutrophils (%) (Auto) % (45.0-75.0) Lymphocytes (%) (Auto) % (20.0-45.0) Monocytes (%) (Auto) % (1.0-10.0) Eosinophils (%) (Auto) % (0.0-3.0) Basophils (%) (Auto) % (0.0-2.0) Differential Total Cells Counted 100 Neutrophils % (Manual) 88 % (45-75) H Lymphocytes % (Manual) 4 % (20-45) L Monocytes % (Manual) 2 % (1-10) Eosinophils % (Manual) 0 % (0-3) Basophils % (Manual) 0 % (0-2) Band Neutrophils 6 % (0-8) Platelet Estimate Adequate Platelet Morphology Normal Red Blood Cell Morphology Normal Sodium Level 148 MMOL/L (136-145) H Potassium Level 4.2 MMOL/L (3.5-5.1) Chloride Level 116 MMOL/L (98-107) H Carbon Dioxide Level 25 MMOL/L (21-32) Anion Gap 7 mmol/L (5-15) Blood Urea Nitrogen 28 mg/dL (7-18) H Creatinine 1.0 MG/DL (0.55-1.30) Estimat Glomerular Filtration Rate mL/min (>60) Glucose Level 134 MG/DL (74-106) H Lactic Acid Level 2.30 mmol/L (0.4-2.0) H Uric Acid 4.5 MG/DL (2.6-7.2) Calcium Level 7.9 MG/DL (8.5-10.1) L Phosphorus Level 2.6 MG/DL (2.5-4.9) Magnesium Level 2.1 MG/DL (1.8-2.4) Total Bilirubin 0.8 MG/DL (0.2-1.0) Aspartate Amino Transf (AST/SGOT) 40 U/L (15-37) H Alanine Aminotransferase (ALT/SGPT) 25 U/L (12-78) Alkaline Phosphatase 82 U/L (46-116) Troponin I 0.402 ng/mL (0.000-0.056) 0.350 ng/mL (0.000-0.056) Pro-B-Type Natriuretic Peptide 80120 pg/mL (0-125) H Total Protein 6.6 G/DL (6.4-8.2) Albumin 1.7 G/DL (3.4-5.0) L Globulin 4.9 g/dL Albumin/Globulin Ratio 0.3 (1.0-2.7) L Test 01/27/18 08:55 01/27/18 09:05 01/27/18 10:50 Lactic Acid Level 2.10 mmol/L (0.66-2.22) Arterial Blood pH 7.308 (7.350-7.450) Arterial Blood Partial Pressure CO2 48.2 mmHg (35.0-45.0) H Arterial Blood Partial Pressure O2 62.7 mmHg (75.0-100.0) L Arterial Blood HCO3 23.6 mmol/L (22.0-26.0) Arterial Blood Oxygen Saturation 90.0 % (95-100) L Arterial Blood Base Excess -2.9 (-2-2) L Dima Test Positive Activated Partial Thromboplast Time 57 SEC (23-33) H Microbiology Date/Time Source Procedure Growth Status 01/24/18 18:40 Blood Blood Culture - Preliminary NO GROWTH AFTER 48 HOURS Resulted 01/24/18 18:30 Blood Blood Culture - Preliminary NO GROWTH AFTER 48 HOURS Resulted 01/24/18 18:55 Nasal Nares Influenza Types A,B Antigen (SILVESTRE) - Final Complete 01/24/18 19:05 Urine,Clean Catch Urine Culture - Final NO GROWTH AFTER 48 HOURS Complete Objective HEAD AND NECK: No jugular venous distention, orally intubated. LUNGS: Coarse rhonchi bilaterally. CARDIOVASCULAR: Regular S1 and S2 with no gallop or murmur. ABDOMEN: Soft. EXTREMITIES: No pitting edema, but has an abrasion in his knees from multiple falls. Josep Brar MD Jan 27, 2018 14:04
--- NOTE | 2018-01-27 14:12 | Infectious Diseases Prog Note ---
Assessment/Plan Assessment/Plan A: 1. Sepsis 2. Hypoxemic respiratory failure 3. Acute renal failure. 4. Lactic acidosis. 5. Increase in bilirubin, s/p cholecystectomy 6. Pulmonary fibrosis 7. Pulmonary hypertension 8.troponin leak P; Continue Cefepime & Zithromax Subjective ROS Limited/Unobtainable: Yes Constitutional: Reports: no symptoms Psychiatric: Reports: other - on restraint Allergies: Coded Allergies: No Known Allergies (Unverified , 01/24/18) Objective Vital Signs Last 24 Hour Vital Signs Date Time Temp Pulse Resp B/P (MAP) Pulse Ox O2 Delivery O2 Flow Rate FiO2 01/27/18 13:06 71 34 50 01/27/18 13:05 73 36 98 Mechanical Ventilator 40 01/27/18 12:56 81 31 97 Endotracheal Tube 40 01/27/18 11:30 98 24 104/61 (75) 98 01/27/18 11:00 75 24 131/60 (83) 98 01/27/18 10:54 72 34 50 01/27/18 10:30 110 24 109/66 (80) 100 01/27/18 10:09 86 120/69 01/27/18 10:00 88 24 109/66 (80) 100 01/27/18 09:30 113 24 109/66 (80) 100 01/27/18 09:00 87 24 109/66 (80) 100 01/27/18 08:49 115 35 70 01/27/18 08:30 85 24 109/66 (80) 100 01/27/18 08:00 108 24 117/72 (87) 100 01/27/18 08:00 83 01/27/18 08:00 70 01/27/18 08:00 Mechanical Ventilator 01/27/18 07:49 105 30 100 Mechanical Ventilator 70 01/27/18 07:30 98.8 96 28 128/72 (90) 100 01/27/18 07:29 107 31 99 Endotracheal Tube 70 01/27/18 07:27 107 34 70 01/27/18 07:01 79 24 123/69 (87) 100 01/27/18 06:30 106 21 112/68 (83) 100 01/27/18 06:00 106 22 108/62 (77) 100 01/27/18 06:00 23 Endotracheal Tube 80 01/27/18 05:30 106 22 118/72 (87) 100 01/27/18 05:20 107 32 70 01/27/18 05:00 21 Endotracheal Tube 80 01/27/18 05:00 30 Endotracheal Tube 80 01/27/18 05:00 108 24 94/64 (74) 100 01/27/18 04:30 80 22 116/60 (78) 100 01/27/18 04:00 98.8 96 28 105/63 (77) 100 01/27/18 04:00 32 Endotracheal Tube 80 01/27/18 04:00 Mechanical Ventilator 01/27/18 04:00 70 01/27/18 04:00 83 01/27/18 03:48 106 30 70 01/27/18 03:30 92 26 92/66 (75) 97 01/27/18 03:00 26 Endotracheal Tube 80 01/27/18 03:00 102 22 95/52 (66) 100 01/27/18 02:47 98.7 01/27/18 02:30 82 25 92/59 (70) 100 01/27/18 02:17 31 Endotracheal Tube 70 01/27/18 02:00 28 Endotracheal Tube 80 01/27/18 02:00 81 29 97/61 (73) 100 01/27/18 01:30 78 28 100/55 (70) 100 01/27/18 01:11 82 30 100 Mechanical Ventilator 70 01/27/18 01:00 24 Endotracheal Tube 80 01/27/18 01:00 73 31 74/47 (56) 29 01/27/18 00:52 101 32 100 Endotracheal Tube 70 01/27/18 00:50 101 32 70 01/27/18 00:30 71 21 97/56 (70) 100 01/27/18 00:00 Mechanical Ventilator 01/27/18 00:00 98.8 70 20 88/61 (70) 100 01/27/18 00:00 75 01/27/18 00:00 26 Endotracheal Tube 80 01/26/18 23:30 97 31 93/55 (68) 100 01/26/18 23:26 80 01/26/18 23:00 26 Endotracheal Tube 100 01/26/18 22:45 101 30 90 01/26/18 22:00 27 Endotracheal Tube 100 01/26/18 21:30 85 26 113/62 (79) 98 01/26/18 21:00 28 Endotracheal Tube 100 01/26/18 21:00 83 23 96/64 (75) 98 01/26/18 20:58 112 31 85 01/26/18 20:43 82 105/50 01/26/18 20:00 100 01/26/18 20:00 Mechanical Ventilator 01/26/18 20:00 26 Endotracheal Tube 100 01/26/18 20:00 65 01/26/18 19:31 80 28 99 Mechanical Ventilator 90 01/26/18 19:19 105 31 96 Mechanical Ventilator 90 01/26/18 19:16 105 31 90 01/26/18 19:00 81 27 126/65 (85) 99 01/26/18 19:00 26 Endotracheal Tube 100 01/26/18 19:00 26 Endotracheal Tube 100 01/26/18 18:30 86 28 101/53 (69) 98 01/26/18 18:15 95 29 131/58 (82) 85 01/26/18 18:00 83 27 106/56 (73) 99 01/26/18 18:00 27 Endotracheal Tube 100 01/26/18 17:46 82 30 100 01/26/18 17:45 83 32 112/47 (68) 99 01/26/18 17:30 85 39 103/60 (74) 99 01/26/18 17:15 79 24 135/82 (99) 90 01/26/18 17:00 26 Endotracheal Tube 100 01/26/18 17:00 87 26 126/53 (77) 98 01/26/18 16:30 98.5 108 28 132/66 (88) 95 01/26/18 16:18 85 30 100 01/26/18 16:00 Mechanical Ventilator 01/26/18 16:00 29 Endotracheal Tube 100.0 01/26/18 16:00 84 29 126/65 (85) 99 01/26/18 15:41 109 01/26/18 15:30 83 29 116/51 (72) 86 01/26/18 15:16 100 01/26/18 15:00 30 Endotracheal Tube 100 01/26/18 15:00 85 30 114/45 (68) 86 01/26/18 14:30 86 31 116/63 (80) 84 Height (Feet): 5 Height (Inches): 9.00 Weight (Pounds): 145 HEENT: other - orally intubated Respiratory/Chest: decreased breath sounds, other - on ventilator Abdomen: soft, non tender, other - NG tube feeding Extremities: no edema Neurologic/Psychiatric: unresponsiveness, other - sedated Microbiology Date/Time Source Procedure Growth Status 01/24/18 18:40 Blood Blood Culture - Preliminary NO GROWTH AFTER 48 HOURS Resulted 01/24/18 18:30 Blood Blood Culture - Preliminary NO GROWTH AFTER 48 HOURS Resulted 01/24/18 18:55 Nasal Nares Influenza Types A,B Antigen (SILVESTRE) - Final Complete 01/24/18 19:05 Urine,Clean Catch Urine Culture - Final NO GROWTH AFTER 48 HOURS Complete Laboratory Tests Test 01/26/18 15:35 01/26/18 23:11 01/27/18 04:00 01/27/18 07:35 Activated Partial Thromboplast Time 88 SEC (23-33) H 55 SEC (23-33) H Arterial Blood pH 7.270 (7.350-7.450) Arterial Blood Partial Pressure CO2 54.2 mmHg (35.0-45.0) H Arterial Blood Partial Pressure O2 131.5 mmHg (75.0-100.0) H Arterial Blood HCO3 24.3 mmol/L (22.0-26.0) Arterial Blood Oxygen Saturation 97.9 % (95-100) Arterial Blood Base Excess -3.1 (-2-2) L Dima Test Positive White Blood Count 15.9 K/UL (4.8-10.8) H Red Blood Count 3.83 M/UL (4.70-6.10) L Hemoglobin 12.1 G/DL (14.2-18.0) L Hematocrit 37.0 % (42.0-52.0) L Mean Corpuscular Volume 97 FL (80-99) Mean Corpuscular Hemoglobin 31.7 PG (27.0-31.0) H Mean Corpuscular Hemoglobin Concent 32.8 G/DL (32.0-36.0) Red Cell Distribution Width 13.1 % (11.6-14.8) Platelet Count 201 K/UL (150-450) Mean Platelet Volume 6.8 FL (6.5-10.1) Neutrophils (%) (Auto) % (45.0-75.0) Lymphocytes (%) (Auto) % (20.0-45.0) Monocytes (%) (Auto) % (1.0-10.0) Eosinophils (%) (Auto) % (0.0-3.0) Basophils (%) (Auto) % (0.0-2.0) Differential Total Cells Counted 100 Neutrophils % (Manual) 88 % (45-75) H Lymphocytes % (Manual) 4 % (20-45) L Monocytes % (Manual) 2 % (1-10) Eosinophils % (Manual) 0 % (0-3) Basophils % (Manual) 0 % (0-2) Band Neutrophils 6 % (0-8) Platelet Estimate Adequate Platelet Morphology Normal Red Blood Cell Morphology Normal Sodium Level 148 MMOL/L (136-145) H Potassium Level 4.2 MMOL/L (3.5-5.1) Chloride Level 116 MMOL/L (98-107) H Carbon Dioxide Level 25 MMOL/L (21-32) Anion Gap 7 mmol/L (5-15) Blood Urea Nitrogen 28 mg/dL (7-18) H Creatinine 1.0 MG/DL (0.55-1.30) Estimat Glomerular Filtration Rate mL/min (>60) Glucose Level 134 MG/DL (74-106) H Lactic Acid Level 2.30 mmol/L (0.4-2.0) H Uric Acid 4.5 MG/DL (2.6-7.2) Calcium Level 7.9 MG/DL (8.5-10.1) L Phosphorus Level 2.6 MG/DL (2.5-4.9) Magnesium Level 2.1 MG/DL (1.8-2.4) Total Bilirubin 0.8 MG/DL (0.2-1.0) Aspartate Amino Transf (AST/SGOT) 40 U/L (15-37) H Alanine Aminotransferase (ALT/SGPT) 25 U/L (12-78) Alkaline Phosphatase 82 U/L (46-116) Troponin I 0.402 ng/mL (0.000-0.056) 0.350 ng/mL (0.000-0.056) Pro-B-Type Natriuretic Peptide 33617 pg/mL (0-125) H Total Protein 6.6 G/DL (6.4-8.2) Albumin 1.7 G/DL (3.4-5.0) L Globulin 4.9 g/dL Albumin/Globulin Ratio 0.3 (1.0-2.7) L Test 01/27/18 08:55 01/27/18 09:05 01/27/18 10:50 Lactic Acid Level 2.10 mmol/L (0.66-2.22) Arterial Blood pH 7.308 (7.350-7.450) Arterial Blood Partial Pressure CO2 48.2 mmHg (35.0-45.0) H Arterial Blood Partial Pressure O2 62.7 mmHg (75.0-100.0) L Arterial Blood HCO3 23.6 mmol/L (22.0-26.0) Arterial Blood Oxygen Saturation 90.0 % (95-100) L Arterial Blood Base Excess -2.9 (-2-2) L Dima Test Positive Activated Partial Thromboplast Time 57 SEC (23-33) H Current Medications Medications (Trade) Dose Ordered Sig/Chaka Route PRN Reason Start Time Stop Time Status Last Admin Dose Admin Acetaminophen (Tylenol) 650 mg PRN PRN RECTAL Prn Headache/Temp > 101 01/26/18 22:15 02/23/18 22:14 Albuterol/ Ipratropium (Albuterol/ Ipratropium) 3 ml Q4H PRN HHN Shortness of Breath 01/26/18 10:00 01/30/18 13:59 Albuterol/ Ipratropium (Albuterol/ Ipratropium) 3 ml Q6HRT HHN 01/26/18 13:00 01/30/18 18:59 01/27/18 12:57 Azithromycin 250 mg/Dextrose 275 ml @ 275 mls/hr Q24HRS IV 01/26/18 20:00 02/01/18 20:59 01/26/18 20:42 Barium Sulfate (Readi-Cat 2) 450 ml NOW PRN ORAL Radiology Procedure 01/26/18 19:30 01/27/18 19:22 Cefepime HCl 1 gm/ Dextrose 55 ml @ 110 mls/hr Q24H IVPB 01/26/18 12:00 02/01/18 11:59 01/27/18 11:50 Dextrose/ Electrolytes 1,000 ml @ 75 mls/hr [id number] IV 01/27/18 11:41 02/23/18 11:40 01/27/18 11:57 Diphenhydramine HCl (Benadryl) 25 mg Q6H PRN IVP Itching 01/26/18 22:15 02/25/18 22:14 Famotidine (Pepcid I.v.) 20 mg Q12HR IVP 01/26/18 10:00 02/24/18 09:59 01/27/18 10:09 Fentanyl Citrate 1000 mcg/Sodium Chloride 100 ml @ 0 mls/hr Q24H IV 01/26/18 10:30 02/02/18 10:29 01/27/18 02:17 Haloperidol Lactate (Haldol) 5 mg Q6H PRN IM Agitation 01/27/18 13:00 02/26/18 12:59 Heparin Sodium/ Dextrose 500 ml @ 28.943 mls/ hr ADJUST PER PROTOCOL IV 01/27/18 11:24 02/26/18 11:23 01/27/18 11:55 Metoprolol Tartrate (Lopressor) 25 mg Q12HR ORAL 01/26/18 21:00 02/25/18 20:59 01/27/18 10:09 Midazolam HCl (Versed 2mg/2ml vial) 2 mg EVERY 4 HOURS PRN IVP For Anxiety 01/26/18 10:00 02/25/18 09:59 Olanzapine (ZyPREXA) 2.5 mg BEDTIME PRN ORAL agitation 01/26/18 21:00 02/25/18 20:59 Ondansetron HCl (Zofran) 4 mg Q6H PRN IVP Nausea & Vomiting 01/26/18 22:15 02/25/18 22:14 Vancomycin HCl (Vanco rx to dose) 1 ea DAILY PRN MISC Per rx protocol 01/26/18 09:45 02/25/18 09:44 Vancomycin HCl 1 gm/Dextrose 275 ml @ 183.708 mls/hr Q12H IVPB 01/26/18 11:00 01/31/18 10:59 01/26/18 22:57 Ha Tello MD Jan 27, 2018 14:12
[2018-01-27] MEDS: Vancomycin 1gm in D5W 275ml IVPB SCH ×2 (14:43→23:19)
[2018-01-27] MEDS: Azithromycin 250 MG in D5W 275 ML IV SCH (19:57)
[2018-01-27] MEDS: Heparin 5000 units/ml inj SUBQ SCH (21:03)
--- NOTE | 2018-01-27 22:31 | General Progress Note ---
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 (2) Renal insufficiency ICD Codes: N28.9 - Disorder of kidney and ureter, unspecified; R65.20 - Severe sepsis without septic shock SNOMED: 114857960, 289675639 (3) UTI (urinary tract infection) ICD Codes: N39.0 - Urinary tract infection, site not specified SNOMED: 91117624, 788449099 Qualifiers: Qualified Codes: N39.0 - Urinary tract infection, site not specified (4) Pneumonia ICD Codes: J18.9 - Pneumonia, unspecified organism SNOMED: 685482917 Qualifiers: Qualified Codes: J18.1 - Lobar pneumonia, unspecified organism (5) Severe sepsis ICD Codes: A41.9 - Sepsis, unspecified organism; R65.20 - Severe sepsis without septic shock SNOMED: 81698194 (6) Hypoxia ICD Codes: R09.02 - Hypoxemia; R65.20 - Severe sepsis without septic shock SNOMED: 520203053, 261774720 (7) Pulmonary fibrosis ICD Codes: J84.10 - Pulmonary fibrosis, unspecified SNOMED: 40100558 (8) Lactic acid acidosis ICD Codes: E87.2 - Acidosis SNOMED: 79049807 (9) OLEG (acute kidney injury) ICD Codes: N17.9 - Acute kidney failure, unspecified SNOMED: 63986183 (10) Abnormal LFTs ICD Codes: R94.5 - Abnormal results of liver function studies SNOMED: 314100451 Status: unchanged Assessment/Plan severe pulmonary firbrosis resp failure pna sepsis r/o PE abx per id poor prognosis in icu Subjective ROS Limited/Unobtainable: Yes Allergies: Coded Allergies: No Known Allergies (Unverified , 01/24/18) Objective Last 24 Hour Vital Signs Date Time Temp Pulse Resp B/P (MAP) Pulse Ox O2 Delivery O2 Flow Rate FiO2 01/27/18 22:00 106 27 97/57 (70) 95 01/27/18 21:30 86 18 116/66 (83) 95 01/27/18 21:22 116 30 60 01/27/18 21:03 116 116/66 01/27/18 21:00 116 26 116/66 (83) 90 01/27/18 20:30 116 23 116/57 (76) 96 01/27/18 20:05 22 Mechanical Ventilator 60 01/27/18 20:00 Mechanical Ventilator 01/27/18 20:00 60 01/27/18 20:00 100.0 89 18 114/55 (74) 91 01/27/18 20:00 32 Mechanical Ventilator 60 01/27/18 19:37 85 34 93 Mechanical Ventilator 60 01/27/18 19:30 84 21 114/73 (87) 94 01/27/18 19:27 88 31 92 Endotracheal Tube 60 01/27/18 19:05 113 35 60 01/27/18 19:00 24 Mechanical Ventilator 01/27/18 19:00 85 24 114/73 (87) 89 01/27/18 18:00 86 24 122/64 (83) 90 01/27/18 18:00 24 Mechanical Ventilator 01/27/18 17:00 80 26 128/66 (86) 92 01/27/18 17:00 29 Mechanical Ventilator 01/27/18 16:39 119 32 60 01/27/18 16:03 99.8 01/27/18 16:00 99.8 84 28 125/53 (77) 94 01/27/18 16:00 Mechanical Ventilator 01/27/18 16:00 29 Mechanical Ventilator 01/27/18 16:00 60 01/27/18 16:00 115 01/27/18 15:33 26 01/27/18 15:00 80 33 117/48 (71) 96 01/27/18 15:00 26 Mechanical Ventilator 01/27/18 14:52 82 35 50 01/27/18 14:00 81 24 104/61 (75) 98 01/27/18 14:00 28 Mechanical Ventilator 01/27/18 13:06 71 34 50 01/27/18 13:05 73 36 98 Mechanical Ventilator 40 01/27/18 13:00 110 24 104/61 (75) 98 01/27/18 13:00 27 Mechanical Ventilator 01/27/18 12:56 81 31 97 Endotracheal Tube 40 01/27/18 12:00 98.2 97 28 123/73 (90) 100 01/27/18 12:00 77 01/27/18 12:00 28 Mechanical Ventilator 01/27/18 12:00 50 01/27/18 12:00 Mechanical Ventilator 01/27/18 11:30 98 24 104/61 (75) 98 01/27/18 11:00 75 24 131/60 (83) 98 01/27/18 11:00 28 Mechanical Ventilator 01/27/18 10:54 72 34 50 01/27/18 10:30 110 24 109/66 (80) 100 01/27/18 10:09 86 120/69 01/27/18 10:00 28 Mechanical Ventilator 01/27/18 10:00 88 24 109/66 (80) 100 01/27/18 09:30 113 24 109/66 (80) 100 01/27/18 09:00 87 24 109/66 (80) 100 01/27/18 09:00 28 Mechanical Ventilator 01/27/18 08:49 115 35 70 01/27/18 08:30 85 24 109/66 (80) 100 01/27/18 08:00 108 24 117/72 (87) 100 01/27/18 08:00 83 01/27/18 08:00 70 01/27/18 08:00 Mechanical Ventilator 01/27/18 08:00 23 Mechanical Ventilator 01/27/18 07:49 105 30 100 Mechanical Ventilator 70 01/27/18 07:30 98.8 96 28 128/72 (90) 100 01/27/18 07:29 107 31 99 Endotracheal Tube 70 01/27/18 07:27 107 34 70 01/27/18 07:01 79 24 123/69 (87) 100 01/27/18 07:00 26 Mechanical Ventilator 01/27/18 06:30 106 21 112/68 (83) 100 01/27/18 06:00 106 22 108/62 (77) 100 01/27/18 06:00 23 Endotracheal Tube 80 01/27/18 05:30 106 22 118/72 (87) 100 01/27/18 05:20 107 32 70 01/27/18 05:00 21 Endotracheal Tube 80 01/27/18 05:00 30 Endotracheal Tube 80 01/27/18 05:00 108 24 94/64 (74) 100 01/27/18 04:30 80 22 116/60 (78) 100 01/27/18 04:00 98.8 96 28 105/63 (77) 100 01/27/18 04:00 32 Endotracheal Tube 80 01/27/18 04:00 Mechanical Ventilator 01/27/18 04:00 70 01/27/18 04:00 83 01/27/18 03:48 106 30 70 01/27/18 03:30 92 26 92/66 (75) 97 01/27/18 03:00 26 Endotracheal Tube 80 01/27/18 03:00 102 22 95/52 (66) 100 01/27/18 02:30 82 25 92/59 (70) 100 01/27/18 02:17 31 Endotracheal Tube 70 01/27/18 02:00 28 Endotracheal Tube 80 01/27/18 02:00 81 29 97/61 (73) 100 01/27/18 01:30 78 28 100/55 (70) 100 01/27/18 01:11 82 30 100 Mechanical Ventilator 70 01/27/18 01:00 24 Endotracheal Tube 80 01/27/18 01:00 73 31 74/47 (56) 29 01/27/18 00:52 101 32 100 Endotracheal Tube 70 01/27/18 00:50 101 32 70 01/27/18 00:30 71 21 97/56 (70) 100 01/27/18 00:00 Mechanical Ventilator 01/27/18 00:00 98.8 70 20 88/61 (70) 100 01/27/18 00:00 75 01/27/18 00:00 26 Endotracheal Tube 80 01/26/18 23:30 97 31 93/55 (68) 100 01/26/18 23:26 80 01/26/18 23:00 26 Endotracheal Tube 100 01/26/18 22:45 101 30 90 Intake and Output 01/26/18 01/27/18 19:00 07:00 Intake Total 1860.170 ml 1218.312 ml Output Total 390 ml 90 ml Balance 1470.170 ml 1128.312 ml Free Water 50 ml 60 ml IV Total 1780.170 ml 808.312 ml Tube Feeding 30 ml 290 ml Other 60 ml Output Urine Total 390 ml 90 ml Laboratory Tests 01/26/18 23:11: Arterial Blood pH 7.270L, Arterial Blood Partial Pressure CO2 54.2H, Arterial Blood Partial Pressure O2 131.5H, Arterial Blood HCO3 24.3, Arterial Blood Oxygen Saturation 97.9, Arterial Blood Base Excess -3.1L, Dima Test Positive 01/27/18 04:00: White Blood Count 15.9H, Red Blood Count 3.83L, Hemoglobin 12.1L, Hematocrit 37.0L, Mean Corpuscular Volume 97, Mean Corpuscular Hemoglobin 31.7H, Mean Corpuscular Hemoglobin Concent 32.8, Red Cell Distribution Width 13.1, Platelet Count 201, Mean Platelet Volume 6.8, Neutrophils (%) (Auto) , Lymphocytes (%) ( Auto) , Monocytes (%) (Auto) , Eosinophils (%) (Auto) , Basophils (%) (Auto) , Differential Total Cells Counted 100, Neutrophils % (Manual) 88H, Lymphocytes % (Manual) 4L, Monocytes % (Manual) 2, Eosinophils % (Manual) 0, Basophils % ( Manual) 0, Band Neutrophils 6, Platelet Estimate Adequate, Platelet Morphology Normal, Red Blood Cell Morphology Normal, Activated Partial Thromboplast Time 55H, Sodium Level 148H, Potassium Level 4.2, Chloride Level 116H, Carbon Dioxide Level 25, Anion Gap 7, Blood Urea Nitrogen 28H, Creatinine 1.0, Estimat Glomerular Filtration Rate , Glucose Level 134H, Lactic Acid Level 2.30H, Uric Acid 4.5, Calcium Level 7.9L, Phosphorus Level 2.6, Magnesium Level 2.1, Total Bilirubin 0.8, Aspartate Amino Transf (AST/SGOT) 40H, Alanine Aminotransferase ( ALT/SGPT) 25, Alkaline Phosphatase 82, Troponin I 0.402H, Pro-B-Type Natriuretic Peptide 69148J, Total Protein 6.6, Albumin 1.7L, Globulin 4.9, Albumin/Globulin Ratio 0.3L 01/27/18 07:35: Troponin I 0.350H 01/27/18 08:55: Lactic Acid Level 2.10 01/27/18 09:05: Arterial Blood pH 7.308L, Arterial Blood Partial Pressure CO2 48.2H, Arterial Blood Partial Pressure O2 62.7L, Arterial Blood HCO3 23.6, Arterial Blood Oxygen Saturation 90.0L, Arterial Blood Base Excess -2.9L, Dima Test Positive 01/27/18 10:50: Activated Partial Thromboplast Time 57H 01/27/18 21:35: Vancomycin Level Trough 17.1H Height (Feet): 5 Height (Inches): 9.00 Weight (Pounds): 145 General Appearance: lethargic, confused Abdomen: non tender Edwin Corrigan MD Jan 27, 2018 22:31
[2018-01-28] VITALS (48 sets, daily range): BP systolic 92–154; BP diastolic 36–91
[2018-01-28] MEDS: Albuterol/Ipratropium 3ml neb HHN SCH ×4 (01:09→18:53)
[2018-01-28 05:39] LABS: HEMATOCRIT 34.3 % (42.0-52.0); HEMOGLOBIN 11.2 G/DL (14.2-18.0); MEAN CORPUSCULAR VOLUME 97 FL (80-99); PLATELET COUNT 171 K/UL (150-450); RED BLOOD COUNT 3.54 M/UL (4.70-6.10); RED CELL DISTRIBUTION WIDTH 13.6 % (11.6-14.8); WHITE BLOOD COUNT 14.7 K/UL (4.8-10.8)
[2018-01-28 06:27] LABS: ALANINE AMINOTRANSFERASE 25 U/L (12-78); ALBUMIN 1.6 G/DL (3.4-5.0); ALBUMIN/GLOBULIN RATIO 0.4 (1.0-2.7); ALKALINE PHOSPHATASE 85 U/L (46-116); ANION GAP 5 mmol/L (5-15); ASPARTATE AMINO TRANSFERASE 30 U/L (15-37); BILIRUBIN,TOTAL 0.9 MG/DL (0.2-1.0); BLOOD UREA NITROGEN 37 mg/dL (7-18); CALCIUM 7.7 MG/DL (8.5-10.1); CARBON DIOXIDE 26 MMOL/L (21-32); CHLORIDE 116 MMOL/L (98-107); CREATININE 1.1 MG/DL (0.55-1.30); POTASSIUM 4.8 MMOL/L (3.5-5.1); SODIUM 147 MMOL/L (136-145)
--- NOTE | 2018-01-28 08:15 | Pulmonolgy Critical Care Note ---
Critical Care - Asmt/Plan Assessment/Plan: PROBLEM LIST: 1. Bilateral parenchymal infiltrates, multilobar pneumonia on top of underlying fibrotic lung disease 2. VDRF 3. Metabolic & respiratory acidosis 4. Likely underlying pulmonary fibrosis and COPD 5. NSTEMI, likely demand ischemia - TROPS DOWNTRENDING 6. Lactic acidosis - RESOLVED 7. Abnormal creatinine, likely acute kidney injury - IMPROVED 8. Abnormal liver function tests - IMPROVED 9. SIRS 10. History of hypertension. 11. PNEUMONIA TREATMENT PLAN: Continue ventilatory support/settings reviewed, monitor gas exchange, not tolerating weaning RTC and PRN DUOnebs Cefepime & Azithro, add Vanco F/U Cx's Continue IVUH to complete 48 hours Cotinue TF's ICU sedation: Fentanyl gtt for RASS - 2, Versed 2 mg IV q4 PRN F/U cardiology recs Monitor volumes and renal function, decrease IVF Wound care Discuss GOC D/W RN, RT and team CCT 45 Respiratory: monitor respiratory rate, CXR, ABG Cardiac: continue pressors Infectious Disease: check cultures, continue antibiotics Gastrointestinal: continue feedings/current rate Disposition: keep in ICU Time Spent (Minutes): 50 Notes 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 Discussed with: nurses Critical Care - Objective Last 24 Hour Vital Signs Date Time Temp Pulse Resp B/P (MAP) Pulse Ox O2 Delivery O2 Flow Rate FiO2 01/28/18 07:21 103 30 97 Mechanical Ventilator 60 01/28/18 07:12 110 30 99 Endotracheal Tube 60 01/28/18 07:09 81 32 60 01/28/18 07:00 21 Mechanical Ventilator 60 01/28/18 07:00 80 24 106/53 (70) 94 01/28/18 06:30 82 24 105/52 (69) 94 01/28/18 06:00 99.5 84 25 113/58 (76) 91 01/28/18 06:00 25 Mechanical Ventilator 60 01/28/18 05:30 80 25 116/83 (94) 92 01/28/18 05:05 75 32 60 01/28/18 05:00 76 26 101/49 (66) 92 01/28/18 05:00 26 Mechanical Ventilator 60 01/28/18 04:30 106 28 105/53 (70) 96 01/28/18 04:00 Mechanical Ventilator 01/28/18 04:00 60 01/28/18 04:00 30 Mechanical Ventilator 60 12/8/18 04:00 99.6 77 30 107/53 (71) 98 01/28/18 04:00 77 01/28/18 03:30 77 30 108/52 (70) 100 01/28/18 03:21 79 30 60 01/28/18 03:00 78 29 100/51 (67) 96 01/28/18 03:00 29 Mechanical Ventilator 60 01/28/18 02:30 81 27 103/52 (69) 94 01/28/18 02:00 109 25 97/52 (67) 97 01/28/18 02:00 25 Mechanical Ventilator 60 01/28/18 01:30 81 25 100/55 (70) 98 01/28/18 01:29 83 30 96 Mechanical Ventilator 60 01/28/18 01:12 80 30 60 01/28/18 01:10 82 32 97 Endotracheal Tube 60 01/28/18 01:00 29 Mechanical Ventilator 60 01/28/18 01:00 82 29 107/62 (77) 96 01/28/18 00:30 79 30 109/62 (78) 100 01/28/18 00:08 100.4 01/28/18 00:00 60 01/28/18 00:00 Mechanical Ventilator 01/28/18 00:00 100.4 76 23 99/50 (66) 96 01/28/18 00:00 23 Mechanical Ventilator 60 01/28/18 00:00 77 01/27/18 23:38 27 Mechanical Ventilator 60 01/27/18 23:30 77 27 98/48 (65) 97 01/27/18 23:10 83 30 60 01/27/18 23:00 77 26 102/61 (75) 91 01/27/18 22:30 75 27 92/58 (69) 95 01/27/18 22:00 106 27 97/57 (70) 95 01/27/18 21:30 86 18 116/66 (83) 95 01/27/18 21:22 116 30 60 01/27/18 21:10 28 Mechanical Ventilator 60 01/27/18 21:05 34 Mechanical Ventilator 60 01/27/18 21:03 116 116/66 01/27/18 21:00 116 26 116/66 (83) 90 01/27/18 21:00 25 Mechanical Ventilator 60 01/27/18 20:30 116 23 116/57 (76) 96 01/27/18 20:05 22 Mechanical Ventilator 60 01/27/18 20:00 Mechanical Ventilator 01/27/18 20:00 60 01/27/18 20:00 100.0 89 18 114/55 (74) 91 01/27/18 20:00 32 Mechanical Ventilator 60 01/27/18 19:37 85 34 93 Mechanical Ventilator 60 01/27/18 19:30 84 21 114/73 (87) 94 01/27/18 19:27 88 31 92 Endotracheal Tube 60 01/27/18 19:05 113 35 60 01/27/18 19:00 24 Mechanical Ventilator 01/27/18 19:00 85 24 114/73 (87) 89 01/27/18 18:00 86 24 122/64 (83) 90 01/27/18 18:00 24 Mechanical Ventilator 01/27/18 17:00 80 26 128/66 (86) 92 01/27/18 17:00 29 Mechanical Ventilator 01/27/18 16:39 119 32 60 01/27/18 16:00 99.8 84 28 125/53 (77) 94 01/27/18 16:00 Mechanical Ventilator 01/27/18 16:00 29 Mechanical Ventilator 01/27/18 16:00 60 01/27/18 16:00 115 01/27/18 15:33 26 01/27/18 15:00 80 33 117/48 (71) 96 01/27/18 15:00 26 Mechanical Ventilator 01/27/18 14:52 82 35 50 01/27/18 14:00 81 24 104/61 (75) 98 01/27/18 14:00 28 Mechanical Ventilator 01/27/18 13:06 71 34 50 01/27/18 13:05 73 36 98 Mechanical Ventilator 40 01/27/18 13:00 110 24 104/61 (75) 98 01/27/18 13:00 27 Mechanical Ventilator 01/27/18 12:56 81 31 97 Endotracheal Tube 40 01/27/18 12:00 98.2 97 28 123/73 (90) 100 01/27/18 12:00 77 01/27/18 12:00 28 Mechanical Ventilator 01/27/18 12:00 50 01/27/18 12:00 Mechanical Ventilator 01/27/18 11:30 98 24 104/61 (75) 98 01/27/18 11:00 75 24 131/60 (83) 98 01/27/18 11:00 28 Mechanical Ventilator 01/27/18 10:54 72 34 50 01/27/18 10:30 110 24 109/66 (80) 100 01/27/18 10:09 86 120/69 01/27/18 10:00 28 Mechanical Ventilator 01/27/18 10:00 88 24 109/66 (80) 100 01/27/18 09:30 113 24 109/66 (80) 100 01/27/18 09:00 87 24 109/66 (80) 100 01/27/18 09:00 28 Mechanical Ventilator 01/27/18 08:49 115 35 70 01/27/18 08:30 85 24 109/66 (80) 100 Status: obtunded Condition: critical Abdomen: soft, non-tender Extremities: edema Critical Care - Subjective ROS Limited/Unobtainable: Yes Condition: critical FI02: 60 Vent Support Breath Rate: 30 Vent Support Mode: AC Vent Tidal Volume: 600 Sputum Amount: Scant PEEP: 10.0 PIP: 36 Tube Feeding Amount: 50 I&O: Intake and Output 01/27/18 01/28/18 19:00 07:00 Intake Total 2035.050 ml 2261.4 ml Output Total 480 ml 425 ml Balance 1555.050 ml 1836.4 ml IV Total 1585.050 ml 1611.4 ml Tube Feeding 450 ml 600 ml Other 50 ml Output Urine Total 480 ml 425 ml Subjective: not tolerating weaning desaturates quickly still on 60% 10 PEEP sats 80's reduced UOP positive fever CXR: no new cxr ET-Tube: 7.5 ET Position: 23 Labs: Current Medications Medications (Trade) Dose Ordered Sig/Chaka Route PRN Reason Start Time Stop Time Status Last Admin Dose Admin Acetaminophen (Tylenol) 650 mg PRN PRN RECTAL Prn Headache/Temp > 101 01/26/18 22:15 02/23/18 22:14 Albuterol/ Ipratropium (Albuterol/ Ipratropium) 3 ml Q4H PRN HHN Shortness of Breath 01/26/18 10:00 01/30/18 13:59 Albuterol/ Ipratropium (Albuterol/ Ipratropium) 3 ml Q6HRT HHN 01/26/18 13:00 01/30/18 18:59 01/28/18 07:09 Azithromycin 250 mg/Dextrose 275 ml @ 275 mls/hr Q24HRS IV 01/26/18 20:00 02/01/18 20:59 01/27/18 19:57 Cefepime HCl 1 gm/ Dextrose 55 ml @ 110 mls/hr Q24H IVPB 01/26/18 12:00 02/01/18 11:59 01/27/18 11:50 Dextrose/ Electrolytes 1,000 ml @ 75 mls/hr [id number] IV 01/27/18 11:41 02/23/18 11:40 01/28/18 05:55 Diphenhydramine HCl (Benadryl) 25 mg Q6H PRN IVP Itching 01/26/18 22:15 02/25/18 22:14 Famotidine (Pepcid I.v.) 20 mg Q12HR IVP 01/26/18 10:00 02/24/18 09:59 01/28/18 08:19 Fentanyl Citrate 1000 mcg/Sodium Chloride 100 ml @ 0 mls/hr Q24H IV 01/26/18 10:30 02/02/18 10:29 01/28/18 08:21 Haloperidol Lactate (Haldol) 5 mg Q6H PRN IM Agitation 01/27/18 13:00 02/26/18 12:59 Heparin Sodium (Porcine) (Heparin 5000 units/ml) 5,000 units EVERY 12 HOURS SUBQ 01/27/18 21:00 02/26/18 20:59 01/28/18 08:35 Metoprolol Tartrate (Lopressor) 25 mg Q12HR ORAL 01/26/18 21:00 02/25/18 20:59 01/28/18 08:19 Midazolam HCl (Versed 2mg/2ml vial) 2 mg EVERY 4 HOURS PRN IVP For Anxiety 01/26/18 10:00 02/25/18 09:59 Olanzapine (ZyPREXA) 2.5 mg BEDTIME PRN ORAL agitation 01/26/18 21:00 02/25/18 20:59 Ondansetron HCl (Zofran) 4 mg Q6H PRN IVP Nausea & Vomiting 01/26/18 22:15 02/25/18 22:14 Vancomycin HCl (Vanco rx to dose) 1 ea DAILY PRN MISC Per rx protocol 01/26/18 09:45 02/25/18 09:44 Vancomycin HCl 1 gm/Dextrose 275 ml @ 183.708 mls/hr Q12H IVPB 01/26/18 11:00 01/31/18 10:59 01/27/18 23:19 Laboratory Tests Test 01/27/18 08:55 01/27/18 09:05 01/27/18 10:50 01/27/18 21:35 Lactic Acid Level 2.10 mmol/L (0.66-2.22) Arterial Blood pH 7.308 (7.350-7.450) Arterial Blood Partial Pressure CO2 48.2 mmHg (35.0-45.0) H Arterial Blood Partial Pressure O2 62.7 mmHg (75.0-100.0) L Arterial Blood HCO3 23.6 mmol/L (22.0-26.0) Arterial Blood Oxygen Saturation 90.0 % (95-100) L Arterial Blood Base Excess -2.9 (-2-2) L Dima Test Positive Activated Partial Thromboplast Time 57 SEC (23-33) H Vancomycin Level Trough 17.1 ug/mL (5.0-12.0) H Test 01/28/18 04:58 White Blood Count 14.7 K/UL (4.8-10.8) H Red Blood Count 3.54 M/UL (4.70-6.10) L Hemoglobin 11.2 G/DL (14.2-18.0) L Hematocrit 34.3 % (42.0-52.0) L Mean Corpuscular Volume 97 FL (80-99) Mean Corpuscular Hemoglobin 31.7 PG (27.0-31.0) H Mean Corpuscular Hemoglobin Concent 32.7 G/DL (32.0-36.0) Red Cell Distribution Width 13.6 % (11.6-14.8) Platelet Count 171 K/UL (150-450) Mean Platelet Volume 6.6 FL (6.5-10.1) Neutrophils (%) (Auto) % (45.0-75.0) Lymphocytes (%) (Auto) % (20.0-45.0) Monocytes (%) (Auto) % (1.0-10.0) Eosinophils (%) (Auto) % (0.0-3.0) Basophils (%) (Auto) % (0.0-2.0) Sodium Level 147 MMOL/L (136-145) H Potassium Level 4.8 MMOL/L (3.5-5.1) Chloride Level 116 MMOL/L (98-107) H Carbon Dioxide Level 26 MMOL/L (21-32) Anion Gap 5 mmol/L (5-15) Blood Urea Nitrogen 37 mg/dL (7-18) H Creatinine 1.1 MG/DL (0.55-1.30) Estimat Glomerular Filtration Rate mL/min (>60) Glucose Level 127 MG/DL (74-106) H Lactic Acid Level 1.70 mmol/L (0.4-2.0) Calcium Level 7.7 MG/DL (8.5-10.1) L Total Bilirubin 0.9 MG/DL (0.2-1.0) Aspartate Amino Transf (AST/SGOT) 30 U/L (15-37) Alanine Aminotransferase (ALT/SGPT) 25 U/L (12-78) Alkaline Phosphatase 85 U/L (46-116) Total Protein 6.1 G/DL (6.4-8.2) L Albumin 1.6 G/DL (3.4-5.0) L Globulin 4.5 g/dL Albumin/Globulin Ratio 0.4 (1.0-2.7) L Jaleesa Grullon DO Jan 28, 2018 08:15
[2018-01-28] MEDS: Metoprolol 25mg tab ORAL SCH ×2 (08:19→20:34)
[2018-01-28] MEDS: Heparin 5000 units/ml inj SUBQ SCH ×2 (08:35→20:34)
--- NOTE | 2018-01-28 09:55 | General Progress Note ---
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 (2) Renal insufficiency ICD Codes: N28.9 - Disorder of kidney and ureter, unspecified; R65.20 - Severe sepsis without septic shock SNOMED: 473946899, 152798979 (3) UTI (urinary tract infection) ICD Codes: N39.0 - Urinary tract infection, site not specified SNOMED: 27890105, 252831204 Qualifiers: Qualified Codes: N39.0 - Urinary tract infection, site not specified (4) Pneumonia ICD Codes: J18.9 - Pneumonia, unspecified organism SNOMED: 585030237 Qualifiers: Qualified Codes: J18.1 - Lobar pneumonia, unspecified organism (5) Severe sepsis ICD Codes: A41.9 - Sepsis, unspecified organism; R65.20 - Severe sepsis without septic shock SNOMED: 60795424 (6) Hypoxia ICD Codes: R09.02 - Hypoxemia; R65.20 - Severe sepsis without septic shock SNOMED: 389532357, 942907051 (7) Pulmonary fibrosis ICD Codes: J84.10 - Pulmonary fibrosis, unspecified SNOMED: 54150151 (8) Lactic acid acidosis ICD Codes: E87.2 - Acidosis SNOMED: 67564874 (9) OLEG (acute kidney injury) ICD Codes: N17.9 - Acute kidney failure, unspecified SNOMED: 19673093 (10) Abnormal LFTs ICD Codes: R94.5 - Abnormal results of liver function studies SNOMED: 987256441 Status: progressing Assessment/Plan severe pulmonary firbrosis resp failure intubated no change reviewed chart and meds pna sepsis abx per id poor prognosis in icu Subjective ROS Limited/Unobtainable: Yes Allergies: Coded Allergies: No Known Allergies (Unverified , 01/24/18) Objective Last 24 Hour Vital Signs Date Time Temp Pulse Resp B/P (MAP) Pulse Ox O2 Delivery O2 Flow Rate FiO2 01/28/18 09:00 26 Mechanical Ventilator 60 01/28/18 08:30 81 26 100/53 (69) 93 01/28/18 08:21 23 Mechanical Ventilator 60 01/28/18 08:19 117 118/58 01/28/18 08:00 60 01/28/18 08:00 99.7 117 25 118/58 (78) 84 12/8/18 08:00 Mechanical Ventilator 01/28/18 07:30 114 24 154/36 (75) 94 01/28/18 07:21 103 30 97 Mechanical Ventilator 60 01/28/18 07:12 110 30 99 Endotracheal Tube 60 01/28/18 07:09 81 32 60 01/28/18 07:00 21 Mechanical Ventilator 60 01/28/18 07:00 80 24 106/53 (70) 94 01/28/18 06:30 82 24 105/52 (69) 94 01/28/18 06:00 99.5 84 25 113/58 (76) 91 01/28/18 06:00 25 Mechanical Ventilator 60 01/28/18 05:30 80 25 116/83 (94) 92 01/28/18 05:05 75 32 60 01/28/18 05:00 76 26 101/49 (66) 92 01/28/18 05:00 26 Mechanical Ventilator 60 01/28/18 04:30 106 28 105/53 (70) 96 01/28/18 04:00 Mechanical Ventilator 01/28/18 04:00 60 01/28/18 04:00 30 Mechanical Ventilator 60 01/28/18 04:00 99.6 77 30 107/53 (71) 98 01/28/18 04:00 77 01/28/18 03:30 77 30 108/52 (70) 100 01/28/18 03:21 79 30 60 01/28/18 03:00 78 29 100/51 (67) 96 01/28/18 03:00 29 Mechanical Ventilator 60 01/28/18 02:30 81 27 103/52 (69) 94 01/28/18 02:00 109 25 97/52 (67) 97 01/28/18 02:00 25 Mechanical Ventilator 60 01/28/18 01:30 81 25 100/55 (70) 98 01/28/18 01:29 83 30 96 Mechanical Ventilator 60 01/28/18 01:12 80 30 60 01/28/18 01:10 82 32 97 Endotracheal Tube 60 01/28/18 01:00 29 Mechanical Ventilator 60 01/28/18 01:00 82 29 107/62 (77) 96 01/28/18 00:30 79 30 109/62 (78) 100 01/28/18 00:08 100.4 01/28/18 00:00 60 01/28/18 00:00 Mechanical Ventilator 12/8/18 00:00 100.4 76 23 99/50 (66) 96 01/28/18 00:00 23 Mechanical Ventilator 60 01/28/18 00:00 77 01/27/18 23:38 27 Mechanical Ventilator 60 01/27/18 23:30 77 27 98/48 (65) 97 01/27/18 23:10 83 30 60 01/27/18 23:00 77 26 102/61 (75) 91 01/27/18 22:30 75 27 92/58 (69) 95 01/27/18 22:00 106 27 97/57 (70) 95 01/27/18 21:30 86 18 116/66 (83) 95 01/27/18 21:22 116 30 60 01/27/18 21:10 28 Mechanical Ventilator 60 01/27/18 21:05 34 Mechanical Ventilator 60 01/27/18 21:03 116 116/66 01/27/18 21:00 116 26 116/66 (83) 90 01/27/18 21:00 25 Mechanical Ventilator 60 01/27/18 20:30 116 23 116/57 (76) 96 01/27/18 20:05 22 Mechanical Ventilator 60 01/27/18 20:00 Mechanical Ventilator 01/27/18 20:00 60 01/27/18 20:00 100.0 89 18 114/55 (74) 91 01/27/18 20:00 32 Mechanical Ventilator 60 01/27/18 19:37 85 34 93 Mechanical Ventilator 60 01/27/18 19:30 84 21 114/73 (87) 94 01/27/18 19:27 88 31 92 Endotracheal Tube 60 01/27/18 19:05 113 35 60 01/27/18 19:00 24 Mechanical Ventilator 01/27/18 19:00 85 24 114/73 (87) 89 01/27/18 18:00 86 24 122/64 (83) 90 01/27/18 18:00 24 Mechanical Ventilator 01/27/18 17:00 80 26 128/66 (86) 92 01/27/18 17:00 29 Mechanical Ventilator 01/27/18 16:39 119 32 60 01/27/18 16:00 99.8 84 28 125/53 (77) 94 01/27/18 16:00 Mechanical Ventilator 01/27/18 16:00 29 Mechanical Ventilator 01/27/18 16:00 60 01/27/18 16:00 115 01/27/18 15:33 26 01/27/18 15:00 80 33 117/48 (71) 96 01/27/18 15:00 26 Mechanical Ventilator 01/27/18 14:52 82 35 50 01/27/18 14:00 81 24 104/61 (75) 98 01/27/18 14:00 28 Mechanical Ventilator 01/27/18 13:06 71 34 50 01/27/18 13:05 73 36 98 Mechanical Ventilator 40 01/27/18 13:00 110 24 104/61 (75) 98 01/27/18 13:00 27 Mechanical Ventilator 01/27/18 12:56 81 31 97 Endotracheal Tube 40 01/27/18 12:00 98.2 97 28 123/73 (90) 100 01/27/18 12:00 77 01/27/18 12:00 28 Mechanical Ventilator 01/27/18 12:00 50 01/27/18 12:00 Mechanical Ventilator 01/27/18 11:30 98 24 104/61 (75) 98 01/27/18 11:00 75 24 131/60 (83) 98 01/27/18 11:00 28 Mechanical Ventilator 01/27/18 10:54 72 34 50 01/27/18 10:30 110 24 109/66 (80) 100 01/27/18 10:09 86 120/69 01/27/18 10:00 28 Mechanical Ventilator 01/27/18 10:00 88 24 109/66 (80) 100 Intake and Output 01/27/18 01/28/18 19:00 07:00 Intake Total 2035.050 ml 2261.4 ml Output Total 480 ml 425 ml Balance 1555.050 ml 1836.4 ml IV Total 1585.050 ml 1611.4 ml Tube Feeding 450 ml 600 ml Other 50 ml Output Urine Total 480 ml 425 ml Laboratory Tests 01/27/18 10:50: Activated Partial Thromboplast Time 57H 01/27/18 21:35: Vancomycin Level Trough 17.1H 01/28/18 04:58: White Blood Count 14.7H, Red Blood Count 3.54L, Hemoglobin 11.2L, Hematocrit 34.3L, Mean Corpuscular Volume 97, Mean Corpuscular Hemoglobin 31.7H, Mean Corpuscular Hemoglobin Concent 32.7, Red Cell Distribution Width 13.6, Platelet Count 171, Mean Platelet Volume 6.6, Neutrophils (%) (Auto) , Lymphocytes (%) ( Auto) , Monocytes (%) (Auto) , Eosinophils (%) (Auto) , Basophils (%) (Auto) , Sodium Level 147H, Potassium Level 4.8, Chloride Level 116H, Carbon Dioxide Level 26, Anion Gap 5, Blood Urea Nitrogen 37H, Creatinine 1.1, Estimat Glomerular Filtration Rate , Glucose Level 127H, Lactic Acid Level 1.70, Calcium Level 7.7L, Total Bilirubin 0.9, Aspartate Amino Transf (AST/SGOT) 30, Alanine Aminotransferase (ALT/SGPT) 25, Alkaline Phosphatase 85, Total Protein 6.1L, Albumin 1.6L, Globulin 4.5, Albumin/Globulin Ratio 0.4L Height (Feet): 5 Height (Inches): 9.00 Weight (Pounds): 150 Cardiovascular: normal rate Respiratory/Chest: lungs clear Abdomen: soft Edwin Corrigan MD Jan 28, 2018 09:55
--- NOTE | 2018-01-28 11:20 | Nephrology Progress Note ---
Assessment/Plan Problem List: (1) OLEG (acute kidney injury) (2) Abnormal LFTs (3) Lactic acid acidosis (4) UTI (urinary tract infection) (5) Respiratory disorder with ventilator dependence (6) Pulmonary fibrosis Assessment Acute renal failure, oliguria today Pneumonia / Sepsis / Hypoxia / UTI HypoAlbuminemia / Proteinuria Acute respiratory failure Pulmonary fibrosis Lactic acidosis Plan Adjust jackson- Discussed with RN Hydrate- Pulm support / on vent IV antibiotics Watch electrolytes Gastric support Per orders Subjective ROS Limited/Unobtainable: Yes Objective Objective Last 24 Hour Vital Signs Date Time Temp Pulse Resp B/P (MAP) Pulse Ox O2 Delivery O2 Flow Rate FiO2 01/28/18 10:51 108 30 60 01/28/18 09:00 26 Mechanical Ventilator 60 01/28/18 08:45 83 30 60 01/28/18 08:30 81 26 100/53 (69) 93 01/28/18 08:21 23 Mechanical Ventilator 60 01/28/18 08:19 117 118/58 01/28/18 08:00 60 01/28/18 08:00 99.7 117 25 118/58 (78) 84 01/28/18 08:00 Mechanical Ventilator 01/28/18 07:30 114 24 154/36 (75) 94 01/28/18 07:21 103 30 97 Mechanical Ventilator 60 01/28/18 07:12 110 30 99 Endotracheal Tube 60 01/28/18 07:09 81 32 60 01/28/18 07:00 21 Mechanical Ventilator 60 01/28/18 07:00 80 24 106/53 (70) 94 01/28/18 06:30 82 24 105/52 (69) 94 01/28/18 06:00 99.5 84 25 113/58 (76) 91 01/28/18 06:00 25 Mechanical Ventilator 60 01/28/18 05:30 80 25 116/83 (94) 92 01/28/18 05:05 75 32 60 01/28/18 05:00 76 26 101/49 (66) 92 01/28/18 05:00 26 Mechanical Ventilator 60 01/28/18 04:30 106 28 105/53 (70) 96 01/28/18 04:00 Mechanical Ventilator 01/28/18 04:00 60 01/28/18 04:00 30 Mechanical Ventilator 60 01/28/18 04:00 99.6 77 30 107/53 (71) 98 01/28/18 04:00 77 01/28/18 03:30 77 30 108/52 (70) 100 01/28/18 03:21 79 30 60 01/28/18 03:00 78 29 100/51 (67) 96 01/28/18 03:00 29 Mechanical Ventilator 60 01/28/18 02:30 81 27 103/52 (69) 94 01/28/18 02:00 109 25 97/52 (67) 97 01/28/18 02:00 25 Mechanical Ventilator 60 01/28/18 01:30 81 25 100/55 (70) 98 01/28/18 01:29 83 30 96 Mechanical Ventilator 60 01/28/18 01:12 80 30 60 01/28/18 01:10 82 32 97 Endotracheal Tube 60 01/28/18 01:00 29 Mechanical Ventilator 60 01/28/18 01:00 82 29 107/62 (77) 96 01/28/18 00:30 79 30 109/62 (78) 100 01/28/18 00:08 100.4 01/28/18 00:00 60 01/28/18 00:00 Mechanical Ventilator 01/28/18 00:00 100.4 76 23 99/50 (66) 96 01/28/18 00:00 23 Mechanical Ventilator 60 01/28/18 00:00 77 01/27/18 23:38 27 Mechanical Ventilator 60 01/27/18 23:30 77 27 98/48 (65) 97 01/27/18 23:10 83 30 60 01/27/18 23:00 77 26 102/61 (75) 91 01/27/18 22:30 75 27 92/58 (69) 95 01/27/18 22:00 106 27 97/57 (70) 95 01/27/18 21:30 86 18 116/66 (83) 95 01/27/18 21:22 116 30 60 01/27/18 21:10 28 Mechanical Ventilator 60 01/27/18 21:05 34 Mechanical Ventilator 60 01/27/18 21:03 116 116/66 01/27/18 21:00 116 26 116/66 (83) 90 01/27/18 21:00 25 Mechanical Ventilator 60 01/27/18 20:30 116 23 116/57 (76) 96 12/7/18 20:05 22 Mechanical Ventilator 60 01/27/18 20:00 Mechanical Ventilator 01/27/18 20:00 60 01/27/18 20:00 100.0 89 18 114/55 (74) 91 01/27/18 20:00 32 Mechanical Ventilator 60 01/27/18 19:37 85 34 93 Mechanical Ventilator 60 01/27/18 19:30 84 21 114/73 (87) 94 01/27/18 19:27 88 31 92 Endotracheal Tube 60 01/27/18 19:05 113 35 60 01/27/18 19:00 24 Mechanical Ventilator 01/27/18 19:00 85 24 114/73 (87) 89 01/27/18 18:00 86 24 122/64 (83) 90 01/27/18 18:00 24 Mechanical Ventilator 01/27/18 17:00 80 26 128/66 (86) 92 01/27/18 17:00 29 Mechanical Ventilator 01/27/18 16:39 119 32 60 01/27/18 16:00 99.8 84 28 125/53 (77) 94 01/27/18 16:00 Mechanical Ventilator 01/27/18 16:00 29 Mechanical Ventilator 01/27/18 16:00 60 01/27/18 16:00 115 01/27/18 15:33 26 01/27/18 15:00 80 33 117/48 (71) 96 01/27/18 15:00 26 Mechanical Ventilator 01/27/18 14:52 82 35 50 01/27/18 14:00 81 24 104/61 (75) 98 01/27/18 14:00 28 Mechanical Ventilator 01/27/18 13:06 71 34 50 01/27/18 13:05 73 36 98 Mechanical Ventilator 40 01/27/18 13:00 110 24 104/61 (75) 98 01/27/18 13:00 27 Mechanical Ventilator 01/27/18 12:56 81 31 97 Endotracheal Tube 40 01/27/18 12:00 98.2 97 28 123/73 (90) 100 01/27/18 12:00 77 01/27/18 12:00 28 Mechanical Ventilator 01/27/18 12:00 50 01/27/18 12:00 Mechanical Ventilator 01/27/18 11:30 98 24 104/61 (75) 98 Intake and Output 12/7/18 12/8/18 19:00 07:00 Intake Total 2035.050 ml 2261.4 ml Output Total 480 ml 425 ml Balance 1555.050 ml 1836.4 ml IV Total 1585.050 ml 1611.4 ml Tube Feeding 450 ml 600 ml Other 50 ml Output Urine Total 480 ml 425 ml Laboratory Tests 01/27/18 21:35: Vancomycin Level Trough 17.1H 01/28/18 04:58: White Blood Count 14.7H, Red Blood Count 3.54L, Hemoglobin 11.2L, Hematocrit 34.3L, Mean Corpuscular Volume 97, Mean Corpuscular Hemoglobin 31.7H, Mean Corpuscular Hemoglobin Concent 32.7, Red Cell Distribution Width 13.6, Platelet Count 171, Mean Platelet Volume 6.6, Neutrophils (%) (Auto) , Lymphocytes (%) ( Auto) , Monocytes (%) (Auto) , Eosinophils (%) (Auto) , Basophils (%) (Auto) , Sodium Level 147H, Potassium Level 4.8, Chloride Level 116H, Carbon Dioxide Level 26, Anion Gap 5, Blood Urea Nitrogen 37H, Creatinine 1.1, Estimat Glomerular Filtration Rate , Glucose Level 127H, Lactic Acid Level 1.70, Calcium Level 7.7L, Total Bilirubin 0.9, Aspartate Amino Transf (AST/SGOT) 30, Alanine Aminotransferase (ALT/SGPT) 25, Alkaline Phosphatase 85, Total Protein 6.1L, Albumin 1.6L, Globulin 4.5, Albumin/Globulin Ratio 0.4L Height (Feet): 5 Height (Inches): 9.00 Weight (Pounds): 150 EENT: other - vented Cardiovascular: tachycardia Respiratory/Chest: decreased breath sounds Juan C Mclaughlin MD Jan 28, 2018 11:20
--- NOTE | 2018-01-28 12:32 | Infectious Diseases Prog Note ---
Assessment/Plan Assessment/Plan A: 1. Sepsis 2. Hypoxemic respiratory failure 3. Acute renal failure. 4. Lactic acidosis. 5. Increase in bilirubin, s/p cholecystectomy 6. Pulmonary fibrosis 7. Pulmonary hypertension 8.troponin leak P; Continue Cefepime & Zithromax Subjective ROS Limited/Unobtainable: Yes Constitutional: Reports: no symptoms Respiratory: Reports: other - failed weaning Neurologic: Reports: confusion, other - on restraint Allergies: Coded Allergies: No Known Allergies (Unverified , 01/24/18) Objective Vital Signs Last 24 Hour Vital Signs Date Time Temp Pulse Resp B/P (MAP) Pulse Ox O2 Delivery O2 Flow Rate FiO2 01/28/18 12:03 79 01/28/18 11:30 82 17 111/75 (87) 91 01/28/18 11:00 80 21 101/56 (71) 88 01/28/18 10:51 108 30 60 01/28/18 10:30 107 26 98/46 (63) 88 01/28/18 10:00 107 27 115/61 (79) 88 01/28/18 09:30 108 27 115/61 (79) 88 01/28/18 09:00 26 Mechanical Ventilator 60 01/28/18 09:00 106 25 110/69 (83) 93 01/28/18 08:45 83 30 60 01/28/18 08:30 81 26 100/53 (69) 93 01/28/18 08:21 23 Mechanical Ventilator 60 01/28/18 08:19 117 118/58 01/28/18 08:00 80 01/28/18 08:00 60 01/28/18 08:00 99.7 117 25 118/58 (78) 84 01/28/18 08:00 Mechanical Ventilator 01/28/18 07:30 114 24 154/36 (75) 94 01/28/18 07:21 103 30 97 Mechanical Ventilator 60 01/28/18 07:12 110 30 99 Endotracheal Tube 60 01/28/18 07:09 81 32 60 01/28/18 07:00 21 Mechanical Ventilator 60 01/28/18 07:00 80 24 106/53 (70) 94 01/28/18 06:30 82 24 105/52 (69) 94 01/28/18 06:00 99.5 84 25 113/58 (76) 91 01/28/18 06:00 25 Mechanical Ventilator 60 01/28/18 05:30 80 25 116/83 (94) 92 01/28/18 05:05 75 32 60 01/28/18 05:00 76 26 101/49 (66) 92 01/28/18 05:00 26 Mechanical Ventilator 60 01/28/18 04:30 106 28 105/53 (70) 96 01/28/18 04:00 Mechanical Ventilator 01/28/18 04:00 60 01/28/18 04:00 30 Mechanical Ventilator 60 01/28/18 04:00 99.6 77 30 107/53 (71) 98 01/28/18 04:00 77 01/28/18 03:30 77 30 108/52 (70) 100 01/28/18 03:21 79 30 60 01/28/18 03:00 78 29 100/51 (67) 96 01/28/18 03:00 29 Mechanical Ventilator 60 01/28/18 02:30 81 27 103/52 (69) 94 01/28/18 02:00 109 25 97/52 (67) 97 01/28/18 02:00 25 Mechanical Ventilator 60 01/28/18 01:30 81 25 100/55 (70) 98 01/28/18 01:29 83 30 96 Mechanical Ventilator 60 01/28/18 01:12 80 30 60 01/28/18 01:10 82 32 97 Endotracheal Tube 60 01/28/18 01:00 29 Mechanical Ventilator 60 01/28/18 01:00 82 29 107/62 (77) 96 01/28/18 00:30 79 30 109/62 (78) 100 01/28/18 00:08 100.4 01/28/18 00:00 60 01/28/18 00:00 Mechanical Ventilator 01/28/18 00:00 100.4 76 23 99/50 (66) 96 01/28/18 00:00 23 Mechanical Ventilator 60 01/28/18 00:00 77 01/27/18 23:38 27 Mechanical Ventilator 60 01/27/18 23:30 77 27 98/48 (65) 97 01/27/18 23:10 83 30 60 01/27/18 23:00 77 26 102/61 (75) 91 01/27/18 22:30 75 27 92/58 (69) 95 01/27/18 22:00 106 27 97/57 (70) 95 01/27/18 21:30 86 18 116/66 (83) 95 01/27/18 21:22 116 30 60 01/27/18 21:10 28 Mechanical Ventilator 60 01/27/18 21:05 34 Mechanical Ventilator 60 01/27/18 21:03 116 116/66 01/27/18 21:00 116 26 116/66 (83) 90 01/27/18 21:00 25 Mechanical Ventilator 60 01/27/18 20:30 116 23 116/57 (76) 96 01/27/18 20:05 22 Mechanical Ventilator 60 01/27/18 20:00 Mechanical Ventilator 01/27/18 20:00 60 01/27/18 20:00 100.0 89 18 114/55 (74) 91 01/27/18 20:00 32 Mechanical Ventilator 60 01/27/18 19:37 85 34 93 Mechanical Ventilator 60 01/27/18 19:30 84 21 114/73 (87) 94 01/27/18 19:27 88 31 92 Endotracheal Tube 60 01/27/18 19:05 113 35 60 01/27/18 19:00 24 Mechanical Ventilator 01/27/18 19:00 85 24 114/73 (87) 89 01/27/18 18:00 86 24 122/64 (83) 90 01/27/18 18:00 24 Mechanical Ventilator 01/27/18 17:00 80 26 128/66 (86) 92 01/27/18 17:00 29 Mechanical Ventilator 01/27/18 16:39 119 32 60 01/27/18 16:00 99.8 84 28 125/53 (77) 94 01/27/18 16:00 Mechanical Ventilator 01/27/18 16:00 29 Mechanical Ventilator 01/27/18 16:00 60 01/27/18 16:00 115 01/27/18 15:33 26 01/27/18 15:00 80 33 117/48 (71) 96 01/27/18 15:00 26 Mechanical Ventilator 01/27/18 14:52 82 35 50 01/27/18 14:00 81 24 104/61 (75) 98 01/27/18 14:00 28 Mechanical Ventilator 01/27/18 13:06 71 34 50 01/27/18 13:05 73 36 98 Mechanical Ventilator 40 12/7/18 13:00 110 24 104/61 (75) 98 01/27/18 13:00 27 Mechanical Ventilator 01/27/18 12:56 81 31 97 Endotracheal Tube 40 Height (Feet): 5 Height (Inches): 9.00 Weight (Pounds): 150 HEENT: other - orally intubated Respiratory/Chest: lungs clear, other - on ventilator Cardiovascular: normal rate Abdomen: soft, non tender, other - NG tube Extremities: other - edema of hands Neurologic/Psychiatric: disoriented Laboratory Tests Test 01/27/18 21:35 01/28/18 04:58 Vancomycin Level Trough 17.1 ug/mL (5.0-12.0) H White Blood Count 14.7 K/UL (4.8-10.8) H Red Blood Count 3.54 M/UL (4.70-6.10) L Hemoglobin 11.2 G/DL (14.2-18.0) L Hematocrit 34.3 % (42.0-52.0) L Mean Corpuscular Volume 97 FL (80-99) Mean Corpuscular Hemoglobin 31.7 PG (27.0-31.0) H Mean Corpuscular Hemoglobin Concent 32.7 G/DL (32.0-36.0) Red Cell Distribution Width 13.6 % (11.6-14.8) Platelet Count 171 K/UL (150-450) Mean Platelet Volume 6.6 FL (6.5-10.1) Neutrophils (%) (Auto) % (45.0-75.0) Lymphocytes (%) (Auto) % (20.0-45.0) Monocytes (%) (Auto) % (1.0-10.0) Eosinophils (%) (Auto) % (0.0-3.0) Basophils (%) (Auto) % (0.0-2.0) Sodium Level 147 MMOL/L (136-145) H Potassium Level 4.8 MMOL/L (3.5-5.1) Chloride Level 116 MMOL/L (98-107) H Carbon Dioxide Level 26 MMOL/L (21-32) Anion Gap 5 mmol/L (5-15) Blood Urea Nitrogen 37 mg/dL (7-18) H Creatinine 1.1 MG/DL (0.55-1.30) Estimat Glomerular Filtration Rate mL/min (>60) Glucose Level 127 MG/DL (74-106) H Lactic Acid Level 1.70 mmol/L (0.4-2.0) Calcium Level 7.7 MG/DL (8.5-10.1) L Total Bilirubin 0.9 MG/DL (0.2-1.0) Aspartate Amino Transf (AST/SGOT) 30 U/L (15-37) Alanine Aminotransferase (ALT/SGPT) 25 U/L (12-78) Alkaline Phosphatase 85 U/L (46-116) Total Protein 6.1 G/DL (6.4-8.2) L Albumin 1.6 G/DL (3.4-5.0) L Globulin 4.5 g/dL Albumin/Globulin Ratio 0.4 (1.0-2.7) L Current Medications Medications (Trade) Dose Ordered Sig/Chaka Route PRN Reason Start Time Stop Time Status Last Admin Dose Admin Acetaminophen (Tylenol) 650 mg PRN PRN RECTAL Prn Headache/Temp > 101 01/26/18 22:15 02/23/18 22:14 Albuterol/ Ipratropium (Albuterol/ Ipratropium) 3 ml Q4H PRN HHN Shortness of Breath 01/26/18 10:00 01/30/18 13:59 Albuterol/ Ipratropium (Albuterol/ Ipratropium) 3 ml Q6HRT HHN 01/26/18 13:00 01/30/18 18:59 01/28/18 07:09 Azithromycin 250 mg/Dextrose 275 ml @ 275 mls/hr Q24HRS IV 01/26/18 20:00 02/01/18 20:59 01/27/18 19:57 Cefepime HCl 1 gm/ Dextrose 55 ml @ 110 mls/hr Q24H IVPB 01/26/18 12:00 02/01/18 11:59 01/27/18 11:50 Dextrose/ Electrolytes 1,000 ml @ 75 mls/hr [id number] IV 01/27/18 11:41 02/23/18 11:40 01/28/18 05:55 Diphenhydramine HCl (Benadryl) 25 mg Q6H PRN IVP Itching 01/26/18 22:15 1/5/19 22:14 Famotidine (Pepcid I.v.) 20 mg Q12HR IVP 01/26/18 10:00 02/24/18 09:59 01/28/18 08:19 Fentanyl Citrate 1000 mcg/Sodium Chloride 100 ml @ 0 mls/hr Q24H IV 01/26/18 10:30 02/02/18 10:29 01/28/18 08:21 Haloperidol Lactate (Haldol) 5 mg Q6H PRN IM Agitation 01/27/18 13:00 02/26/18 12:59 Heparin Sodium (Porcine) (Heparin 5000 units/ml) 5,000 units EVERY 12 HOURS SUBQ 01/27/18 21:00 02/26/18 20:59 01/28/18 08:35 Metoprolol Tartrate (Lopressor) 25 mg Q12HR ORAL 01/26/18 21:00 02/25/18 20:59 01/28/18 08:19 Midazolam HCl (Versed 2mg/2ml vial) 2 mg EVERY 4 HOURS PRN IVP For Anxiety 01/26/18 10:00 02/25/18 09:59 Olanzapine (ZyPREXA) 2.5 mg BEDTIME PRN ORAL agitation 01/26/18 21:00 02/25/18 20:59 Ondansetron HCl (Zofran) 4 mg Q6H PRN IVP Nausea & Vomiting 01/26/18 22:15 02/25/18 22:14 Vancomycin HCl (Vanco rx to dose) 1 ea DAILY PRN MISC Per rx protocol 01/26/18 09:45 02/25/18 09:44 Vancomycin HCl 1 gm/Dextrose 275 ml @ 183.708 mls/hr Q12H IVPB 01/26/18 11:00 01/31/18 10:59 01/27/18 23:19 Ha Tello MD Jan 28, 2018 12:31
[2018-01-28] MEDS: Vancomycin 1gm in D5W 275ml IVPB SCH ×2 (12:50→22:41)
[2018-01-28] MEDS: Cefepime HCl 1 GM in D5W 55 ML IVPB SCH (13:00)
--- NOTE | 2018-01-28 13:45 | Cardiac Electrophysiology PN ---
Assessment/Plan Assessment/Plan 1. Troponin Leak. The levels are flat. This could be due to the patient's respiratory failure and azotemia. Echo normal left ventricular systolic function. 2. Respiratory failure, due to PNA and CHF. The patient is on the ventilator. Antibiotic per ID 3. Hypokalemia, potassium was replaced. 4. Azotemia. Sodium is 147. Off Lasix. GEORGIE Mclaughlin 5. Elevated bilirubin of 2.3. DW RN Subjective Subjective In ICU on the Vent and on fentanyl drip 120mcg. Remained in SR. No fib Objective Last 24 Hour Vital Signs Date Time Temp Pulse Resp B/P (MAP) Pulse Ox O2 Delivery O2 Flow Rate FiO2 01/28/18 13:32 105 30 98 Endotracheal Tube 60 01/28/18 12:03 79 01/28/18 12:00 Mechanical Ventilator 01/28/18 12:00 26 Mechanical Ventilator 60 01/28/18 12:00 60 01/28/18 11:30 82 17 111/75 (87) 91 01/28/18 11:00 80 21 101/56 (71) 88 01/28/18 11:00 25 Mechanical Ventilator 60 01/28/18 10:51 108 30 60 01/28/18 10:30 107 26 98/46 (63) 88 01/28/18 10:00 107 27 115/61 (79) 88 01/28/18 10:00 27 Mechanical Ventilator 60 01/28/18 09:30 108 27 115/61 (79) 88 01/28/18 09:00 26 Mechanical Ventilator 60 01/28/18 09:00 106 25 110/69 (83) 93 01/28/18 08:45 83 30 60 01/28/18 08:30 81 26 100/53 (69) 93 01/28/18 08:21 23 Mechanical Ventilator 60 01/28/18 08:19 117 118/58 01/28/18 08:00 80 01/28/18 08:00 60 01/28/18 08:00 99.7 117 25 118/58 (78) 84 01/28/18 08:00 Mechanical Ventilator 01/28/18 07:30 114 24 154/36 (75) 94 01/28/18 07:21 103 30 97 Mechanical Ventilator 60 01/28/18 07:12 110 30 99 Endotracheal Tube 60 01/28/18 07:09 81 32 60 12/8/18 07:00 21 Mechanical Ventilator 60 01/28/18 07:00 80 24 106/53 (70) 94 01/28/18 06:30 82 24 105/52 (69) 94 01/28/18 06:00 99.5 84 25 113/58 (76) 91 01/28/18 06:00 25 Mechanical Ventilator 60 01/28/18 05:30 80 25 116/83 (94) 92 01/28/18 05:05 75 32 60 01/28/18 05:00 76 26 101/49 (66) 92 01/28/18 05:00 26 Mechanical Ventilator 60 01/28/18 04:30 106 28 105/53 (70) 96 01/28/18 04:00 Mechanical Ventilator 01/28/18 04:00 60 01/28/18 04:00 30 Mechanical Ventilator 60 01/28/18 04:00 99.6 77 30 107/53 (71) 98 01/28/18 04:00 77 01/28/18 03:30 77 30 108/52 (70) 100 01/28/18 03:21 79 30 60 01/28/18 03:00 78 29 100/51 (67) 96 01/28/18 03:00 29 Mechanical Ventilator 60 01/28/18 02:30 81 27 103/52 (69) 94 01/28/18 02:00 109 25 97/52 (67) 97 01/28/18 02:00 25 Mechanical Ventilator 60 01/28/18 01:30 81 25 100/55 (70) 98 01/28/18 01:29 83 30 96 Mechanical Ventilator 60 01/28/18 01:12 80 30 60 01/28/18 01:10 82 32 97 Endotracheal Tube 60 01/28/18 01:00 29 Mechanical Ventilator 60 01/28/18 01:00 82 29 107/62 (77) 96 01/28/18 00:30 79 30 109/62 (78) 100 01/28/18 00:08 100.4 01/28/18 00:00 60 01/28/18 00:00 Mechanical Ventilator 01/28/18 00:00 100.4 76 23 99/50 (66) 96 01/28/18 00:00 23 Mechanical Ventilator 60 01/28/18 00:00 77 01/27/18 23:38 27 Mechanical Ventilator 60 01/27/18 23:30 77 27 98/48 (65) 97 01/27/18 23:10 83 30 60 01/27/18 23:00 77 26 102/61 (75) 91 01/27/18 22:30 75 27 92/58 (69) 95 01/27/18 22:00 106 27 97/57 (70) 95 01/27/18 21:30 86 18 116/66 (83) 95 01/27/18 21:22 116 30 60 01/27/18 21:10 28 Mechanical Ventilator 60 01/27/18 21:05 34 Mechanical Ventilator 60 01/27/18 21:03 116 116/66 01/27/18 21:00 116 26 116/66 (83) 90 01/27/18 21:00 25 Mechanical Ventilator 60 01/27/18 20:30 116 23 116/57 (76) 96 01/27/18 20:05 22 Mechanical Ventilator 60 01/27/18 20:00 Mechanical Ventilator 01/27/18 20:00 60 01/27/18 20:00 100.0 89 18 114/55 (74) 91 01/27/18 20:00 32 Mechanical Ventilator 60 01/27/18 19:37 85 34 93 Mechanical Ventilator 60 01/27/18 19:30 84 21 114/73 (87) 94 01/27/18 19:27 88 31 92 Endotracheal Tube 60 01/27/18 19:05 113 35 60 01/27/18 19:00 24 Mechanical Ventilator 01/27/18 19:00 85 24 114/73 (87) 89 01/27/18 18:00 86 24 122/64 (83) 90 01/27/18 18:00 24 Mechanical Ventilator 01/27/18 17:00 80 26 128/66 (86) 92 01/27/18 17:00 29 Mechanical Ventilator 01/27/18 16:39 119 32 60 01/27/18 16:00 99.8 84 28 125/53 (77) 94 01/27/18 16:00 Mechanical Ventilator 01/27/18 16:00 29 Mechanical Ventilator 01/27/18 16:00 60 01/27/18 16:00 115 01/27/18 15:33 26 01/27/18 15:00 80 33 117/48 (71) 96 01/27/18 15:00 26 Mechanical Ventilator 01/27/18 14:52 82 35 50 01/27/18 14:00 81 24 104/61 (75) 98 01/27/18 14:00 28 Mechanical Ventilator Intake and Output 01/27/18 01/28/18 18:59 06:59 Intake Total 2063.362 ml 2257.4 ml Output Total 480 ml 385 ml Balance 1583.362 ml 1872.4 ml IV Total 1633.362 ml 1607.4 ml Tube Feeding 430 ml 600 ml Other 50 ml Output Urine Total 480 ml 385 ml Laboratory Tests Test 01/27/18 21:35 01/28/18 04:58 Vancomycin Level Trough 17.1 ug/mL (5.0-12.0) H White Blood Count 14.7 K/UL (4.8-10.8) H Red Blood Count 3.54 M/UL (4.70-6.10) L Hemoglobin 11.2 G/DL (14.2-18.0) L Hematocrit 34.3 % (42.0-52.0) L Mean Corpuscular Volume 97 FL (80-99) Mean Corpuscular Hemoglobin 31.7 PG (27.0-31.0) H Mean Corpuscular Hemoglobin Concent 32.7 G/DL (32.0-36.0) Red Cell Distribution Width 13.6 % (11.6-14.8) Platelet Count 171 K/UL (150-450) Mean Platelet Volume 6.6 FL (6.5-10.1) Neutrophils (%) (Auto) % (45.0-75.0) Lymphocytes (%) (Auto) % (20.0-45.0) Monocytes (%) (Auto) % (1.0-10.0) Eosinophils (%) (Auto) % (0.0-3.0) Basophils (%) (Auto) % (0.0-2.0) Sodium Level 147 MMOL/L (136-145) H Potassium Level 4.8 MMOL/L (3.5-5.1) Chloride Level 116 MMOL/L (98-107) H Carbon Dioxide Level 26 MMOL/L (21-32) Anion Gap 5 mmol/L (5-15) Blood Urea Nitrogen 37 mg/dL (7-18) H Creatinine 1.1 MG/DL (0.55-1.30) Estimat Glomerular Filtration Rate mL/min (>60) Glucose Level 127 MG/DL (74-106) H Lactic Acid Level 1.70 mmol/L (0.4-2.0) Calcium Level 7.7 MG/DL (8.5-10.1) L Total Bilirubin 0.9 MG/DL (0.2-1.0) Aspartate Amino Transf (AST/SGOT) 30 U/L (15-37) Alanine Aminotransferase (ALT/SGPT) 25 U/L (12-78) Alkaline Phosphatase 85 U/L (46-116) Total Protein 6.1 G/DL (6.4-8.2) L Albumin 1.6 G/DL (3.4-5.0) L Globulin 4.5 g/dL Albumin/Globulin Ratio 0.4 (1.0-2.7) L Objective HEAD AND NECK: No JVD, orally intubated. LUNGS: Coarse rhonchi bilaterally. CARDIOVASCULAR: Regular S1 and S2 with no gallop or murmur. ABDOMEN: Soft. EXTREMITIES: No pitting edema, but has an abrasion in his knees from multiple falls. Josep Brar MD Jan 28, 2018 13:45
--- NOTE | 2018-01-28 14:08 | General Surgery Progress Note ---
General Surgery-Progress Note Subjective Additional Comments no acute events. labs noted. stable Objective Last 24 Hour Vital Signs Date Time Temp Pulse Resp B/P (MAP) Pulse Ox O2 Delivery O2 Flow Rate FiO2 01/28/18 13:32 105 30 98 Endotracheal Tube 60 01/28/18 13:00 22 Mechanical Ventilator 60 01/28/18 12:03 79 01/28/18 12:00 99.2 80 27 112/67 (82) 93 01/28/18 12:00 Mechanical Ventilator 01/28/18 12:00 26 Mechanical Ventilator 60 01/28/18 12:00 60 01/28/18 11:30 82 17 111/75 (87) 91 01/28/18 11:00 80 21 101/56 (71) 88 01/28/18 11:00 25 Mechanical Ventilator 60 01/28/18 10:51 108 30 60 01/28/18 10:30 107 26 98/46 (63) 88 01/28/18 10:00 107 27 115/61 (79) 88 01/28/18 10:00 27 Mechanical Ventilator 60 01/28/18 09:30 108 27 115/61 (79) 88 01/28/18 09:00 26 Mechanical Ventilator 60 01/28/18 09:00 106 25 110/69 (83) 93 01/28/18 08:45 83 30 60 01/28/18 08:30 81 26 100/53 (69) 93 01/28/18 08:21 23 Mechanical Ventilator 60 01/28/18 08:19 117 118/58 01/28/18 08:00 80 01/28/18 08:00 60 01/28/18 08:00 99.7 117 25 118/58 (78) 84 01/28/18 08:00 Mechanical Ventilator 01/28/18 07:30 114 24 154/36 (75) 94 01/28/18 07:21 103 30 97 Mechanical Ventilator 60 01/28/18 07:12 110 30 99 Endotracheal Tube 60 01/28/18 07:09 81 32 60 01/28/18 07:00 21 Mechanical Ventilator 60 01/28/18 07:00 80 24 106/53 (70) 94 01/28/18 06:30 82 24 105/52 (69) 94 01/28/18 06:00 99.5 84 25 113/58 (76) 91 01/28/18 06:00 25 Mechanical Ventilator 60 01/28/18 05:30 80 25 116/83 (94) 92 01/28/18 05:05 75 32 60 01/28/18 05:00 76 26 101/49 (66) 92 01/28/18 05:00 26 Mechanical Ventilator 60 01/28/18 04:30 106 28 105/53 (70) 96 01/28/18 04:00 Mechanical Ventilator 01/28/18 04:00 60 01/28/18 04:00 30 Mechanical Ventilator 60 01/28/18 04:00 99.6 77 30 107/53 (71) 98 01/28/18 04:00 77 01/28/18 03:30 77 30 108/52 (70) 100 01/28/18 03:21 79 30 60 01/28/18 03:00 78 29 100/51 (67) 96 01/28/18 03:00 29 Mechanical Ventilator 60 01/28/18 02:30 81 27 103/52 (69) 94 01/28/18 02:00 109 25 97/52 (67) 97 01/28/18 02:00 25 Mechanical Ventilator 60 01/28/18 01:30 81 25 100/55 (70) 98 01/28/18 01:29 83 30 96 Mechanical Ventilator 60 01/28/18 01:12 80 30 60 01/28/18 01:10 82 32 97 Endotracheal Tube 60 01/28/18 01:00 29 Mechanical Ventilator 60 01/28/18 01:00 82 29 107/62 (77) 96 01/28/18 00:30 79 30 109/62 (78) 100 01/28/18 00:08 100.4 01/28/18 00:00 60 01/28/18 00:00 Mechanical Ventilator 01/28/18 00:00 100.4 76 23 99/50 (66) 96 01/28/18 00:00 23 Mechanical Ventilator 60 01/28/18 00:00 77 01/27/18 23:38 27 Mechanical Ventilator 60 01/27/18 23:30 77 27 98/48 (65) 97 01/27/18 23:10 83 30 60 01/27/18 23:00 77 26 102/61 (75) 91 01/27/18 22:30 75 27 92/58 (69) 95 01/27/18 22:00 106 27 97/57 (70) 95 01/27/18 21:30 86 18 116/66 (83) 95 01/27/18 21:22 116 30 60 01/27/18 21:10 28 Mechanical Ventilator 60 01/27/18 21:05 34 Mechanical Ventilator 60 01/27/18 21:03 116 116/66 01/27/18 21:00 116 26 116/66 (83) 90 01/27/18 21:00 25 Mechanical Ventilator 60 01/27/18 20:30 116 23 116/57 (76) 96 01/27/18 20:05 22 Mechanical Ventilator 60 01/27/18 20:00 Mechanical Ventilator 01/27/18 20:00 60 01/27/18 20:00 100.0 89 18 114/55 (74) 91 01/27/18 20:00 32 Mechanical Ventilator 60 01/27/18 19:37 85 34 93 Mechanical Ventilator 60 01/27/18 19:30 84 21 114/73 (87) 94 01/27/18 19:27 88 31 92 Endotracheal Tube 60 01/27/18 19:05 113 35 60 01/27/18 19:00 24 Mechanical Ventilator 01/27/18 19:00 85 24 114/73 (87) 89 01/27/18 18:00 86 24 122/64 (83) 90 01/27/18 18:00 24 Mechanical Ventilator 01/27/18 17:00 80 26 128/66 (86) 92 01/27/18 17:00 29 Mechanical Ventilator 01/27/18 16:39 119 32 60 01/27/18 16:00 99.8 84 28 125/53 (77) 94 01/27/18 16:00 Mechanical Ventilator 01/27/18 16:00 29 Mechanical Ventilator 01/27/18 16:00 60 01/27/18 16:00 115 01/27/18 15:33 26 01/27/18 15:00 80 33 117/48 (71) 96 01/27/18 15:00 26 Mechanical Ventilator 01/27/18 14:52 82 35 50 I&O Intake and Output 01/27/18 01/28/18 18:59 06:59 Intake Total 2063.362 ml 2257.4 ml Output Total 480 ml 385 ml Balance 1583.362 ml 1872.4 ml IV Total 1633.362 ml 1607.4 ml Tube Feeding 430 ml 600 ml Other 50 ml Output Urine Total 480 ml 385 ml Dressing: other Wound: other Drains: other Cardiovascular: RSR Respiratory: clear Abdomen: soft, flat, present bowel sounds Extremities: other Laboratory Tests Test 01/27/18 21:35 01/28/18 04:58 Vancomycin Level Trough 17.1 ug/mL (5.0-12.0) H White Blood Count 14.7 K/UL (4.8-10.8) H Red Blood Count 3.54 M/UL (4.70-6.10) L Hemoglobin 11.2 G/DL (14.2-18.0) L Hematocrit 34.3 % (42.0-52.0) L Mean Corpuscular Volume 97 FL (80-99) Mean Corpuscular Hemoglobin 31.7 PG (27.0-31.0) H Mean Corpuscular Hemoglobin Concent 32.7 G/DL (32.0-36.0) Red Cell Distribution Width 13.6 % (11.6-14.8) Platelet Count 171 K/UL (150-450) Mean Platelet Volume 6.6 FL (6.5-10.1) Neutrophils (%) (Auto) % (45.0-75.0) Lymphocytes (%) (Auto) % (20.0-45.0) Monocytes (%) (Auto) % (1.0-10.0) Eosinophils (%) (Auto) % (0.0-3.0) Basophils (%) (Auto) % (0.0-2.0) Sodium Level 147 MMOL/L (136-145) H Potassium Level 4.8 MMOL/L (3.5-5.1) Chloride Level 116 MMOL/L (98-107) H Carbon Dioxide Level 26 MMOL/L (21-32) Anion Gap 5 mmol/L (5-15) Blood Urea Nitrogen 37 mg/dL (7-18) H Creatinine 1.1 MG/DL (0.55-1.30) Estimat Glomerular Filtration Rate mL/min (>60) Glucose Level 127 MG/DL (74-106) H Lactic Acid Level 1.70 mmol/L (0.4-2.0) Calcium Level 7.7 MG/DL (8.5-10.1) L Total Bilirubin 0.9 MG/DL (0.2-1.0) Aspartate Amino Transf (AST/SGOT) 30 U/L (15-37) Alanine Aminotransferase (ALT/SGPT) 25 U/L (12-78) Alkaline Phosphatase 85 U/L (46-116) Total Protein 6.1 G/DL (6.4-8.2) L Albumin 1.6 G/DL (3.4-5.0) L Globulin 4.5 g/dL Albumin/Globulin Ratio 0.4 (1.0-2.7) L Plan Problems: (1) Decubitus ulcer of sacral region, stage 3 Assessment & Plan: Stage III full thickness pressure injury sacrum present on admission (L)2cm x (W)1.8cm ,wound bed with 80% yellow slough ,20% granular Borders slightly macerated. Non-blanching erythema without elevation in skin temp, or induration periwound. NO odor noted. Abrasions noted to R elbow (L)3.2cm x (W)1.9cm.Wound with Biofilm ,erythema al; lynn borders .Periwound clean and intact. Abrasion noted to L elbow(L)5.5cm x (W)1.6cm ,biofim noted to wound bed .erythema along borders .Periwound without erythema or elevation in skin temp. Abrasion lateral L knee with dry scab. Abrasion medial R knee with dry scab. Bilat heels boggy with non-blanching erythema. Non-tender when palpated. Pt repositioned with pillow on his side but restless and repositioned self on back. Caregivers presents and made aware of pressure injury to sacrum and interventions implemented to prevent further skin breakdown. Tx.Plan: Cleanse R and L elbows with Saline.Apply Silvasorb Gel to both elbows .Cover with Optifoam drsg .Change every 3 Days and prn. Cleanse Sacral Pressure injury with Saline.Apply Therahoney .Cavilon periwound.Cover with Optifoam drsg Daily and prn. Apply Cavilon to Both heels.Cover with Optifoam drsg .Change Every 7 days and prn. Cavilon to abrasions R and L lower ext.Cover with Optifoam change every 7 days and prn. Off-load heels with pillow. Reposition at least every 2 hours or as tolerated. Surface support mattress. (2) Abnormal LFTs Assessment & Plan: US reviewed - absent GB dilated ducts CT reviewed - dilated duct without notable obstruction LFT's noted and elevated t bili trending down no jaundice AST/ALT nml Alk phos nml -no acute surgical intervention necessary -t bili and d bili correlate. unlikely obstructive at this time. especially with history of cholecystectomy prior -trend labs thank you (3) Severe sepsis Myke Merino Jan 28, 2018 14:08
[2018-01-28] MEDS ORDERED: NS 275ml ONE (16:41)
[2018-01-28] MEDS ORDERED: Tubing IV Secondary IV ONE (17:01)
[2018-01-28] MEDS: Azithromycin 250 MG in D5W 275 ML IV SCH (20:02)
[2018-01-29] VITALS (47 sets, daily range): BP systolic 95–150; BP diastolic 45–98
[2018-01-29] MEDS: Albuterol/Ipratropium 3ml neb HHN SCH ×4 (00:33→19:01)
[2018-01-29 06:11] LABS: BASOPHILS % (AUTO) 0.4 % (0.0-2.0); EOSINOPHILS % (AUTO) 1.7 % (0.0-3.0); HEMATOCRIT 35.3 % (42.0-52.0); HEMOGLOBIN 11.4 G/DL (14.2-18.0); MEAN CORPUSCULAR VOLUME 100 FL (80-99); MONOCYTES % (AUTO) 4.2 % (1.0-10.0); NEUTROPHILS % (AUTO) 83.8 % (45.0-75.0); PLATELET COUNT 139 K/UL (150-450); RED BLOOD COUNT 3.52 M/UL (4.70-6.10); RED CELL DISTRIBUTION WIDTH 14.2 % (11.6-14.8); WHITE BLOOD COUNT 15.4 K/UL (4.8-10.8)
[2018-01-29 06:47] LABS: ALANINE AMINOTRANSFERASE 23 U/L (12-78); ALBUMIN 1.6 G/DL (3.4-5.0); ALBUMIN/GLOBULIN RATIO 0.3 (1.0-2.7); ALKALINE PHOSPHATASE 94 U/L (46-116); ANION GAP 5 mmol/L (5-15); ASPARTATE AMINO TRANSFERASE 26 U/L (15-37); BILIRUBIN,TOTAL 1.1 MG/DL (0.2-1.0); BLOOD UREA NITROGEN 41 mg/dL (7-18); CALCIUM 7.9 MG/DL (8.5-10.1); CARBON DIOXIDE 29 MMOL/L (21-32); CHLORIDE 116 MMOL/L (98-107); CREATININE 1.2 MG/DL (0.55-1.30); POTASSIUM 5.4 MMOL/L (3.5-5.1); SODIUM 149 MMOL/L (136-145)
[2018-01-29 06:48] LABS: BILIRUBIN,DIRECT 0.6 MG/DL (0.0-0.3)
[2018-01-29] MEDS: Metoprolol 25mg tab ORAL SCH ×2 (08:34→21:09)
--- NOTE | 2018-01-29 08:49 | Diagnostic Imaging Report ---
EXAM: XR Chest, 1 View CLINICAL HISTORY: COPD TECHNIQUE: Frontal view of the chest. COMPARISON: 01/26/18 FINDINGS/impression: Endotracheal tube has been pulled back, tip now well above the art. Enteric tube placed in the interval, tip and side hole below the diaphragm. Slight decrease in airspace disease, though still extensive bilaterally.
[2018-01-29] MEDS: Heparin 5000 units/ml inj SUBQ SCH ×2 (08:52→21:11)
[2018-01-29 09:11] LABS: PHOSPHORUS 2.9 MG/DL (2.5-4.9)
[2018-01-29] MEDS: D5 1/2NS 1,000 ML IV SCH (10:00)
--- NOTE | 2018-01-29 10:06 | Nephrology Progress Note ---
Assessment/Plan Problem List: (1) OLEG (acute kidney injury) (2) Abnormal LFTs (3) Lactic acid acidosis (4) UTI (urinary tract infection) (5) Respiratory disorder with ventilator dependence (6) Pulmonary fibrosis Assessment Acute renal failure, oliguria today Pneumonia / Sepsis / Hypoxia / UTI HypoAlbuminemia / Proteinuria Acute respiratory failure Pulmonary fibrosis Lactic acidosis Plan Adjust jackson- Discussed with RN Hydrate- Pulm support / on vent IV antibiotics Watch electrolytes Gastric support Per orders Subjective ROS Limited/Unobtainable: Yes Objective Objective Last 24 Hour Vital Signs Date Time Temp Pulse Resp B/P (MAP) Pulse Ox O2 Delivery O2 Flow Rate FiO2 01/29/18 09:18 111 30 60 01/29/18 08:34 94 127/60 01/29/18 08:33 30 Mechanical Ventilator 60 01/29/18 08:00 Mechanical Ventilator 01/29/18 08:00 60 01/29/18 07:26 88 30 100 Mechanical Ventilator 60 01/29/18 07:16 83 30 100 Endotracheal Tube 60 01/29/18 07:15 83 30 60 01/29/18 07:00 30 Mechanical Ventilator 60 01/29/18 07:00 84 30 95/52 (66) 100 01/29/18 06:30 109 30 123/98 (106) 96 01/29/18 06:00 30 Mechanical Ventilator 60 01/29/18 06:00 93 30 110/47 (68) 92 01/29/18 05:30 87 30 107/49 (68) 96 01/29/18 05:05 91 30 60 01/29/18 05:00 30 Mechanical Ventilator 60 01/29/18 05:00 88 30 130/48 (75) 96 01/29/18 04:00 Mechanical Ventilator 01/29/18 04:00 60 01/29/18 04:00 24 Mechanical Ventilator 60 01/29/18 04:00 98.9 79 24 105/54 (71) 97 01/29/18 03:30 83 24 107/52 (70) 96 01/29/18 03:21 112 01/29/18 03:00 116 26 133/56 (81) 87 01/29/18 03:00 26 Mechanical Ventilator 60 01/29/18 02:40 92 32 60 01/29/18 02:30 76 30 102/52 (69) 97 01/29/18 02:00 76 30 105/57 (73) 97 01/29/18 02:00 30 Mechanical Ventilator 60 01/29/18 01:30 77 30 101/51 (68) 97 01/29/18 01:00 30 Mechanical Ventilator 60 01/29/18 01:00 75 30 101/50 (67) 97 01/29/18 00:42 75 30 99 Mechanical Ventilator 60 01/29/18 00:36 30 Mechanical Ventilator 60 01/29/18 00:34 75 30 60 01/29/18 00:33 75 30 97 Endotracheal Tube 60 01/29/18 00:30 73 30 101/48 (65) 100 01/29/18 00:00 Mechanical Ventilator 01/29/18 00:00 30 Mechanical Ventilator 60 01/29/18 00:00 98.9 75 30 100/50 (67) 96 01/29/18 00:00 60 01/28/18 23:33 74 01/28/18 23:30 73 30 99/47 (64) 89 01/28/18 23:00 73 30 105/56 (72) 97 01/28/18 23:00 30 Mechanical Ventilator 60 01/28/18 22:36 74 30 60 01/28/18 22:30 73 30 97/53 (68) 97 01/28/18 22:00 101 26 103/51 (68) 96 01/28/18 22:00 26 Mechanical Ventilator 60 01/28/18 21:30 87 30 92/50 (64) 95 01/28/18 21:07 85 30 60 01/28/18 21:00 88 28 101/55 (70) 94 01/28/18 21:00 30 Mechanical Ventilator 60 01/28/18 20:50 30 Mechanical Ventilator 60 01/28/18 20:45 30 Mechanical Ventilator 60 01/28/18 20:40 30 Mechanical Ventilator 60 01/28/18 20:35 32 Mechanical Ventilator 60 01/28/18 20:34 112 134/67 01/28/18 20:30 112 29 134/67 (89) 89 01/28/18 20:30 29 Mechanical Ventilator 60 01/28/18 20:00 60 01/28/18 20:00 80 01/28/18 20:00 Mechanical Ventilator 01/28/18 20:00 28 Mechanical Ventilator 60 01/28/18 20:00 99.4 86 28 111/64 (80) 95 01/28/18 19:30 87 24 119/57 (77) 91 01/28/18 19:01 93 30 98 Mechanical Ventilator 60 01/28/18 19:00 30 Mechanical Ventilator 60 01/28/18 19:00 111 30 96/55 (69) 98 01/28/18 18:54 84 32 94 Endotracheal Tube 60 01/28/18 18:53 83 32 60 01/28/18 18:30 84 26 119/59 (79) 96 01/28/18 18:00 82 26 109/56 (73) 92 01/28/18 18:00 22 Mechanical Ventilator 60 01/28/18 17:37 84 32 60 01/28/18 17:30 79 26 112/48 (69) 94 01/28/18 17:00 28 Mechanical Ventilator 60 01/28/18 17:00 110 24 102/60 (74) 30 01/28/18 16:38 28 60 01/28/18 16:30 110 23 102/60 (74) 93 01/28/18 16:00 Mechanical Ventilator 01/28/18 16:00 60 01/28/18 16:00 87 01/28/18 16:00 22 Mechanical Ventilator 60 01/28/18 16:00 98.0 84 26 106/61 (76) 94 01/28/18 15:32 76 32 60 01/28/18 15:30 84 30 110/91 (97) 88 01/28/18 15:00 79 30 95/56 (69) 100 01/28/18 15:00 20 Mechanical Ventilator 60 01/28/18 14:30 79 30 106/52 (70) 100 01/28/18 14:00 21 Mechanical Ventilator 60 01/28/18 14:00 98 30 94/51 (65) 100 01/28/18 13:45 105 30 60 01/28/18 13:44 105 30 96 Mechanical Ventilator 60 01/28/18 13:32 105 30 98 Endotracheal Tube 60 01/28/18 13:30 92 30 96/50 (65) 99 01/28/18 13:00 106 29 100/53 (69) 94 01/28/18 13:00 22 Mechanical Ventilator 60 01/28/18 12:30 80 28 104/54 (71) 94 01/28/18 12:03 79 01/28/18 12:00 99.2 80 27 112/67 (82) 93 01/28/18 12:00 Mechanical Ventilator 01/28/18 12:00 26 Mechanical Ventilator 60 01/28/18 12:00 60 01/28/18 11:30 82 17 111/75 (87) 91 01/28/18 11:00 80 21 101/56 (71) 88 01/28/18 11:00 25 Mechanical Ventilator 60 01/28/18 10:51 108 30 60 01/28/18 10:30 107 26 98/46 (63) 88 Intake and Output 01/28/18 01/29/18 19:00 07:00 Intake Total 2182.416 ml 2237 ml Output Total 675 ml 665 ml Balance 1507.416 ml 1572 ml IV Total 1432.416 ml 1597 ml Tube Feeding 600 ml 600 ml Other 150 ml 40 ml Output Urine Total 675 ml 665 ml Laboratory Tests 01/29/18 04:52: White Blood Count 15.4H, Red Blood Count 3.52L, Hemoglobin 11.4L, Hematocrit 35.3L, Mean Corpuscular Volume 100H, Mean Corpuscular Hemoglobin 32.3H, Mean Corpuscular Hemoglobin Concent 32.3, Red Cell Distribution Width 14.2, Platelet Count 139L, Mean Platelet Volume 7.2, Neutrophils (%) (Auto) 83.8H, Lymphocytes (%) (Auto) 10.0L, Monocytes (%) (Auto) 4.2, Eosinophils (%) (Auto) 1.7, Basophils (%) (Auto) 0.4, Sodium Level 149H, Potassium Level 5.4H, Chloride Level 116H, Carbon Dioxide Level 29, Anion Gap 5, Blood Urea Nitrogen 41H, Creatinine 1.2, Estimat Glomerular Filtration Rate , Glucose Level 122H, Calcium Level 7.9L, Phosphorus Level 2.9, Magnesium Level 2.1, Total Bilirubin 1.1H, Direct Bilirubin 0.6H, Aspartate Amino Transf (AST/SGOT) 26, Alanine Aminotransferase (ALT/SGPT) 23, Alkaline Phosphatase 94, Total Protein 6.3L, Albumin 1.6L, Globulin 4.7, Albumin/Globulin Ratio 0.3L 01/29/18 08:17: Arterial Blood pH 7.220*L, Arterial Blood Partial Pressure CO2 63.6*H, Arterial Blood Partial Pressure O2 77.7, Arterial Blood HCO3 25.7, Arterial Blood Oxygen Saturation 93.9L, Arterial Blood Base Excess -2.8L, Dima Test Positive Height (Feet): 5 Height (Inches): 9.00 Weight (Pounds): 150 General Appearance: no apparent distress EENT: other - on Vent Respiratory/Chest: decreased breath sounds Abdomen: soft Objective o change Juan C Mclaughlin MD Jan 29, 2018 10:05
--- NOTE | 2018-01-29 10:08 | Pulmonolgy Critical Care Note ---
Critical Care - Asmt/Plan Assessment/Plan: PROBLEM LIST: 1. Bilateral parenchymal infiltrates, multilobar pneumonia on top of underlying fibrotic lung disease 2. VDRF 3. Metabolic & respiratory acidosis 4. Likely underlying pulmonary fibrosis and COPD 5. NSTEMI, likely demand ischemia - TROPS DOWNTRENDING 6. Lactic acidosis - RESOLVED 7. Abnormal creatinine, likely acute kidney injury - IMPROVED 8. Abnormal liver function tests - IMPROVED 9. SIRS 10. History of hypertension. 11. PNEUMONIA TREATMENT PLAN: Continue ventilatory support/settings reviewed, decrease Fio2 first to 50, then decrease PEEP as tolerated, slowly RTC and PRN DUOnebs Cefepime & Azithro, add Vanco F/U Cx's Cotinue TF's ICU sedation: Fentanyl gtt for RASS - 2, Versed 2 mg IV q4 PRN F/U cardiology recs Monitor volumes and renal function, decrease IVF Wound care Discuss GOC D/W RN, RT and team CCT 45 Respiratory: CXR, ABG, weaning trial Cardiac: continue to monitor HR/BP Infectious Disease: check cultures, continue antibiotics Time Spent (Minutes): 60 Discussed with: nurses Critical Care - Objective Last 24 Hour Vital Signs Date Time Temp Pulse Resp B/P (MAP) Pulse Ox O2 Delivery O2 Flow Rate FiO2 01/29/18 09:18 111 30 60 01/29/18 08:34 94 127/60 01/29/18 08:33 30 Mechanical Ventilator 60 01/29/18 08:00 Mechanical Ventilator 01/29/18 08:00 60 01/29/18 07:26 88 30 100 Mechanical Ventilator 60 01/29/18 07:16 83 30 100 Endotracheal Tube 60 01/29/18 07:15 83 30 60 01/29/18 07:00 30 Mechanical Ventilator 60 01/29/18 07:00 84 30 95/52 (66) 100 01/29/18 06:30 109 30 123/98 (106) 96 01/29/18 06:00 30 Mechanical Ventilator 60 01/29/18 06:00 93 30 110/47 (68) 92 01/29/18 05:30 87 30 107/49 (68) 96 01/29/18 05:05 91 30 60 01/29/18 05:00 30 Mechanical Ventilator 60 01/29/18 05:00 88 30 130/48 (75) 96 01/29/18 04:00 Mechanical Ventilator 01/29/18 04:00 60 01/29/18 04:00 24 Mechanical Ventilator 60 01/29/18 04:00 98.9 79 24 105/54 (71) 97 01/29/18 03:30 83 24 107/52 (70) 96 01/29/18 03:21 112 01/29/18 03:00 116 26 133/56 (81) 87 01/29/18 03:00 26 Mechanical Ventilator 60 01/29/18 02:40 92 32 60 01/29/18 02:30 76 30 102/52 (69) 97 01/29/18 02:00 76 30 105/57 (73) 97 01/29/18 02:00 30 Mechanical Ventilator 60 01/29/18 01:30 77 30 101/51 (68) 97 01/29/18 01:00 30 Mechanical Ventilator 60 01/29/18 01:00 75 30 101/50 (67) 97 01/29/18 00:42 75 30 99 Mechanical Ventilator 60 01/29/18 00:36 30 Mechanical Ventilator 60 01/29/18 00:34 75 30 60 01/29/18 00:33 75 30 97 Endotracheal Tube 60 01/29/18 00:30 73 30 101/48 (65) 100 01/29/18 00:00 Mechanical Ventilator 01/29/18 00:00 30 Mechanical Ventilator 60 01/29/18 00:00 98.9 75 30 100/50 (67) 96 01/29/18 00:00 60 01/28/18 23:33 74 01/28/18 23:30 73 30 99/47 (64) 89 01/28/18 23:00 73 30 105/56 (72) 97 01/28/18 23:00 30 Mechanical Ventilator 60 01/28/18 22:36 74 30 60 01/28/18 22:30 73 30 97/53 (68) 97 01/28/18 22:00 101 26 103/51 (68) 96 01/28/18 22:00 26 Mechanical Ventilator 60 01/28/18 21:30 87 30 92/50 (64) 95 01/28/18 21:07 85 30 60 01/28/18 21:00 88 28 101/55 (70) 94 01/28/18 21:00 30 Mechanical Ventilator 60 01/28/18 20:50 30 Mechanical Ventilator 60 01/28/18 20:45 30 Mechanical Ventilator 60 01/28/18 20:40 30 Mechanical Ventilator 60 01/28/18 20:35 32 Mechanical Ventilator 60 01/28/18 20:34 112 134/67 01/28/18 20:30 112 29 134/67 (89) 89 01/28/18 20:30 29 Mechanical Ventilator 60 01/28/18 20:00 60 01/28/18 20:00 80 01/28/18 20:00 Mechanical Ventilator 01/28/18 20:00 28 Mechanical Ventilator 60 01/28/18 20:00 99.4 86 28 111/64 (80) 95 01/28/18 19:30 87 24 119/57 (77) 91 01/28/18 19:01 93 30 98 Mechanical Ventilator 60 01/28/18 19:00 30 Mechanical Ventilator 60 01/28/18 19:00 111 30 96/55 (69) 98 01/28/18 18:54 84 32 94 Endotracheal Tube 60 01/28/18 18:53 83 32 60 01/28/18 18:30 84 26 119/59 (79) 96 01/28/18 18:00 82 26 109/56 (73) 92 01/28/18 18:00 22 Mechanical Ventilator 60 01/28/18 17:37 84 32 60 01/28/18 17:30 79 26 112/48 (69) 94 01/28/18 17:00 28 Mechanical Ventilator 60 01/28/18 17:00 110 24 102/60 (74) 30 18 16:38 28 60 01/28/18 16:30 110 23 102/60 (74) 93 01/28/18 16:00 Mechanical Ventilator 01/28/18 16:00 60 01/28/18 16:00 87 01/28/18 16:00 22 Mechanical Ventilator 60 01/28/18 16:00 98.0 84 26 106/61 (76) 94 01/28/18 15:32 76 32 60 01/28/18 15:30 84 30 110/91 (97) 88 01/28/18 15:00 79 30 95/56 (69) 100 01/28/18 15:00 20 Mechanical Ventilator 60 01/28/18 14:30 79 30 106/52 (70) 100 01/28/18 14:00 21 Mechanical Ventilator 60 01/28/18 14:00 98 30 94/51 (65) 100 01/28/18 13:45 105 30 60 01/28/18 13:44 105 30 96 Mechanical Ventilator 60 01/28/18 13:32 105 30 98 Endotracheal Tube 60 01/28/18 13:30 92 30 96/50 (65) 99 01/28/18 13:00 106 29 100/53 (69) 94 01/28/18 13:00 22 Mechanical Ventilator 60 01/28/18 12:30 80 28 104/54 (71) 94 01/28/18 12:03 79 01/28/18 12:00 99.2 80 27 112/67 (82) 93 01/28/18 12:00 Mechanical Ventilator 01/28/18 12:00 26 Mechanical Ventilator 60 01/28/18 12:00 60 01/28/18 11:30 82 17 111/75 (87) 91 01/28/18 11:00 80 21 101/56 (71) 88 01/28/18 11:00 25 Mechanical Ventilator 60 01/28/18 10:51 108 30 60 01/28/18 10:30 107 26 98/46 (63) 88 Status: sedated Condition: critical Lungs: rhonchi Heart: HR/BP unstable Abdomen: non-tender, active bowel sounds Extremities: edema Critical Care - Subjective ROS Limited/Unobtainable: Yes FI02: 60 Vent Support Breath Rate: 30 Vent Support Mode: AC Vent Tidal Volume: 600 Sputum Amount: Scant PEEP: 10.0 PIP: 35 Tube Feeding Amount: 50 I&O: Intake and Output 01/28/18 01/29/18 19:00 07:00 Intake Total 2182.416 ml 2237 ml Output Total 675 ml 665 ml Balance 1507.416 ml 1572 ml IV Total 1432.416 ml 1597 ml Tube Feeding 600 ml 600 ml Other 150 ml 40 ml Output Urine Total 675 ml 665 ml Subjective: placed on 100% over night, weaning FIO2 this am currently at 65% with 10 PEEP sedated no NV or diarrhea positive secretions reduced UOP no fever ET-Tube: 7.5 ET Position: 23 Labs: Current Medications Medications (Trade) Dose Ordered Sig/Chaka Route PRN Reason Start Time Stop Time Status Last Admin Dose Admin Acetaminophen (Tylenol) 650 mg PRN PRN RECTAL Prn Headache/Temp > 101 01/26/18 22:15 02/23/18 22:14 01/28/18 20:35 Albuterol/ Ipratropium (Albuterol/ Ipratropium) 3 ml Q4H PRN HHN Shortness of Breath 01/26/18 10:00 01/30/18 13:59 Albuterol/ Ipratropium (Albuterol/ Ipratropium) 3 ml Q6HRT HHN 01/26/18 13:00 01/30/18 18:59 01/30/18 01:20 Azithromycin 250 mg/Dextrose 275 ml @ 275 mls/hr Q24HRS IV 01/26/18 20:00 02/01/18 20:59 01/29/18 19:39 Cefepime HCl 1 gm/ Dextrose 55 ml @ 110 mls/hr Q24H IVPB 01/26/18 12:00 02/01/18 11:59 01/29/18 12:21 Dextrose/Sodium Chloride 1,000 ml @ 50 mls/hr Q20H IV 01/29/18 10:15 02/28/18 10:14 01/29/18 10:00 Diphenhydramine HCl (Benadryl) 25 mg Q6H PRN IVP Itching 01/26/18 22:15 02/25/18 22:14 Famotidine (Pepcid I.v.) 20 mg Q12HR IVP 01/26/18 10:00 02/24/18 09:59 01/29/18 21:09 Fentanyl Citrate 1000 mcg/Sodium Chloride 100 ml @ 0 mls/hr Q24H IV 01/26/18 10:30 02/02/18 10:29 01/29/18 16:42 Haloperidol Lactate (Haldol) 5 mg Q6H PRN IM Agitation 01/27/18 13:00 02/26/18 12:59 Heparin Sodium (Porcine) (Heparin 5000 units/ml) 5,000 units EVERY 12 HOURS SUBQ 01/27/18 21:00 02/26/18 20:59 01/29/18 21:11 Metoprolol Tartrate (Lopressor) 25 mg Q12HR ORAL 01/26/18 21:00 02/25/18 20:59 01/29/18 21:09 Midazolam HCl (Versed 2mg/2ml vial) 2 mg EVERY 4 HOURS PRN IVP For Anxiety 01/26/18 10:00 02/25/18 09:59 Olanzapine (ZyPREXA) 2.5 mg BEDTIME PRN ORAL agitation 01/26/18 21:00 02/25/18 20:59 Ondansetron HCl (Zofran) 4 mg Q6H PRN IVP Nausea & Vomiting 01/26/18 22:15 02/25/18 22:14 Vancomycin HCl (Vanco rx to dose) 1 ea DAILY PRN MISC Per rx protocol 01/26/18 09:45 02/25/18 09:44 Vancomycin HCl 1 gm/Dextrose 275 ml @ 183.708 mls/hr Q12H IVPB 01/26/18 11:00 01/31/18 10:59 01/29/18 21:53 Laboratory Tests Test 01/29/18 04:52 01/29/18 06:02 01/29/18 08:17 01/29/18 11:05 White Blood Count 15.4 K/UL (4.8-10.8) H Red Blood Count 3.52 M/UL (4.70-6.10) L Hemoglobin 11.4 G/DL (14.2-18.0) L Hematocrit 35.3 % (42.0-52.0) L Mean Corpuscular Volume 100 FL (80-99) H Mean Corpuscular Hemoglobin 32.3 PG (27.0-31.0) H Mean Corpuscular Hemoglobin Concent 32.3 G/DL (32.0-36.0) Red Cell Distribution Width 14.2 % (11.6-14.8) Platelet Count 139 K/UL (150-450) L Mean Platelet Volume 7.2 FL (6.5-10.1) Neutrophils (%) (Auto) 83.8 % (45.0-75.0) H Lymphocytes (%) (Auto) 10.0 % (20.0-45.0) L Monocytes (%) (Auto) 4.2 % (1.0-10.0) Eosinophils (%) (Auto) 1.7 % (0.0-3.0) Basophils (%) (Auto) 0.4 % (0.0-2.0) Sodium Level 149 MMOL/L (136-145) H Potassium Level 5.4 MMOL/L (3.5-5.1) H Chloride Level 116 MMOL/L (98-107) H Carbon Dioxide Level 29 MMOL/L (21-32) Anion Gap 5 mmol/L (5-15) Blood Urea Nitrogen 41 mg/dL (7-18) H Creatinine 1.2 MG/DL (0.55-1.30) Estimat Glomerular Filtration Rate mL/min (>60) Glucose Level 122 MG/DL (74-106) H Calcium Level 7.9 MG/DL (8.5-10.1) L Phosphorus Level 2.9 MG/DL (2.5-4.9) Magnesium Level 2.1 MG/DL (1.8-2.4) Total Bilirubin 1.1 MG/DL (0.2-1.0) H Direct Bilirubin 0.6 MG/DL (0.0-0.3) H Aspartate Amino Transf (AST/SGOT) 26 U/L (15-37) Alanine Aminotransferase (ALT/SGPT) 23 U/L (12-78) Alkaline Phosphatase 94 U/L (46-116) Total Protein 6.3 G/DL (6.4-8.2) L Albumin 1.6 G/DL (3.4-5.0) L Globulin 4.7 g/dL Albumin/Globulin Ratio 0.3 (1.0-2.7) L C-Reactive Protein, Quantitative 33.7 mg/dL (0.00-0.90) H Arterial Blood pH 7.220 (7.350-7.450) Arterial Blood Partial Pressure CO2 63.6 mmHg (35.0-45.0) *H Arterial Blood Partial Pressure O2 77.7 mmHg (75.0-100.0) Arterial Blood HCO3 25.7 mmol/L (22.0-26.0) Arterial Blood Oxygen Saturation 93.9 % (95-100) L Arterial Blood Base Excess -2.8 (-2-2) L Dima Test Positive Vancomycin Level Trough 17.3 ug/mL (5.0-12.0) H Jaleesa Grullon DO Jan 29, 2018 10:08
[2018-01-29] MEDS: Cefepime HCl 1 GM in D5W 55 ML IVPB SCH (12:21)
[2018-01-29] MEDS: Vancomycin 1gm in D5W 275ml IVPB SCH ×2 (12:21→21:53)
--- NOTE | 2018-01-29 13:08 | General Progress Note ---
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 (2) Renal insufficiency ICD Codes: N28.9 - Disorder of kidney and ureter, unspecified; R65.20 - Severe sepsis without septic shock SNOMED: 009856335, 596238387 (3) UTI (urinary tract infection) ICD Codes: N39.0 - Urinary tract infection, site not specified SNOMED: 21500252, 834874609 Qualifiers: Qualified Codes: N39.0 - Urinary tract infection, site not specified (4) Pneumonia ICD Codes: J18.9 - Pneumonia, unspecified organism SNOMED: 184723914 Qualifiers: Qualified Codes: J18.1 - Lobar pneumonia, unspecified organism (5) Severe sepsis ICD Codes: A41.9 - Sepsis, unspecified organism; R65.20 - Severe sepsis without septic shock SNOMED: 50807881 (6) Hypoxia ICD Codes: R09.02 - Hypoxemia; R65.20 - Severe sepsis without septic shock SNOMED: 538560841, 787817371 (7) Pulmonary fibrosis ICD Codes: J84.10 - Pulmonary fibrosis, unspecified SNOMED: 18823300 (8) Lactic acid acidosis ICD Codes: E87.2 - Acidosis SNOMED: 22534221 (9) OLEG (acute kidney injury) ICD Codes: N17.9 - Acute kidney failure, unspecified SNOMED: 38296780 (10) Abnormal LFTs ICD Codes: R94.5 - Abnormal results of liver function studies SNOMED: 089512278 Status: unchanged Assessment/Plan severe pulmonary firbrosis resp failure no change afebrile no wheezing bilat rales pna sepsis abx per id poor prognosis in icu Subjective ROS Limited/Unobtainable: Yes Allergies: Coded Allergies: No Known Allergies (Unverified , 01/24/18) Objective Last 24 Hour Vital Signs Date Time Temp Pulse Resp B/P (MAP) Pulse Ox O2 Delivery O2 Flow Rate FiO2 01/29/18 12:30 77 30 95/46 (62) 99 01/29/18 12:00 Mechanical Ventilator 01/29/18 12:00 99.2 79 30 101/53 (69) 97 01/29/18 12:00 50 01/29/18 12:00 78 01/29/18 11:30 79 22 114/56 (75) 92 01/29/18 11:00 71 25 98/53 (68) 100 01/29/18 10:57 50 01/29/18 10:43 81 30 60 01/29/18 10:30 78 22 121/69 (86) 100 01/29/18 10:30 50 01/29/18 10:00 96 30 100/57 (71) 100 01/29/18 09:30 101 30 100/52 (68) 100 01/29/18 09:18 111 30 60 01/29/18 09:00 109 30 102/53 (69) 100 01/29/18 08:34 94 127/60 01/29/18 08:33 30 Mechanical Ventilator 60 01/29/18 08:30 115 29 119/52 (74) 100 01/29/18 08:00 Mechanical Ventilator 01/29/18 08:00 60 01/29/18 08:00 100.1 115 29 127/60 (82) 100 01/29/18 08:00 116 01/29/18 07:30 94 28 142/59 (86) 100 01/29/18 07:26 88 30 100 Mechanical Ventilator 60 01/29/18 07:16 83 30 100 Endotracheal Tube 60 01/29/18 07:15 83 30 60 01/29/18 07:00 30 Mechanical Ventilator 60 01/29/18 07:00 84 30 95/52 (66) 100 01/29/18 06:30 109 30 123/98 (106) 96 01/29/18 06:00 30 Mechanical Ventilator 60 01/29/18 06:00 93 30 110/47 (68) 92 01/29/18 05:30 87 30 107/49 (68) 96 01/29/18 05:05 91 30 60 01/29/18 05:00 30 Mechanical Ventilator 60 01/29/18 05:00 88 30 130/48 (75) 96 01/29/18 04:00 Mechanical Ventilator 01/29/18 04:00 60 01/29/18 04:00 24 Mechanical Ventilator 60 01/29/18 04:00 98.9 79 24 105/54 (71) 97 01/29/18 03:30 83 24 107/52 (70) 96 01/29/18 03:21 112 01/29/18 03:00 116 26 133/56 (81) 87 01/29/18 03:00 26 Mechanical Ventilator 60 01/29/18 02:40 92 32 60 01/29/18 02:30 76 30 102/52 (69) 97 01/29/18 02:00 76 30 105/57 (73) 97 01/29/18 02:00 30 Mechanical Ventilator 60 01/29/18 01:30 77 30 101/51 (68) 97 01/29/18 01:00 30 Mechanical Ventilator 60 01/29/18 01:00 75 30 101/50 (67) 97 01/29/18 00:42 75 30 99 Mechanical Ventilator 60 01/29/18 00:36 30 Mechanical Ventilator 60 01/29/18 00:34 75 30 60 01/29/18 00:33 75 30 97 Endotracheal Tube 60 01/29/18 00:30 73 30 101/48 (65) 100 01/29/18 00:00 Mechanical Ventilator 01/29/18 00:00 30 Mechanical Ventilator 60 01/29/18 00:00 98.9 75 30 100/50 (67) 96 01/29/18 00:00 60 01/28/18 23:33 74 01/28/18 23:30 73 30 99/47 (64) 89 01/28/18 23:00 73 30 105/56 (72) 97 01/28/18 23:00 30 Mechanical Ventilator 60 01/28/18 22:36 74 30 60 01/28/18 22:30 73 30 97/53 (68) 97 01/28/18 22:00 101 26 103/51 (68) 96 01/28/18 22:00 26 Mechanical Ventilator 60 01/28/18 21:30 87 30 92/50 (64) 95 01/28/18 21:07 85 30 60 01/28/18 21:00 88 28 101/55 (70) 94 01/28/18 21:00 30 Mechanical Ventilator 60 01/28/18 20:50 30 Mechanical Ventilator 60 01/28/18 20:45 30 Mechanical Ventilator 60 01/28/18 20:40 30 Mechanical Ventilator 60 01/28/18 20:35 32 Mechanical Ventilator 60 01/28/18 20:34 112 134/67 01/28/18 20:30 112 29 134/67 (89) 89 01/28/18 20:30 29 Mechanical Ventilator 60 01/28/18 20:00 60 01/28/18 20:00 80 01/28/18 20:00 Mechanical Ventilator 01/28/18 20:00 28 Mechanical Ventilator 60 01/28/18 20:00 99.4 86 28 111/64 (80) 95 01/28/18 19:30 87 24 119/57 (77) 91 01/28/18 19:01 93 30 98 Mechanical Ventilator 60 01/28/18 19:00 30 Mechanical Ventilator 60 01/28/18 19:00 111 30 96/55 (69) 98 01/28/18 18:54 84 32 94 Endotracheal Tube 60 01/28/18 18:53 83 32 60 01/28/18 18:30 84 26 119/59 (79) 96 01/28/18 18:00 82 26 109/56 (73) 92 01/28/18 18:00 22 Mechanical Ventilator 60 01/28/18 17:37 84 32 60 01/28/18 17:30 79 26 112/48 (69) 94 01/28/18 17:00 28 Mechanical Ventilator 60 01/28/18 17:00 110 24 102/60 (74) 30 01/28/18 16:38 28 60 01/28/18 16:30 110 23 102/60 (74) 93 01/28/18 16:00 Mechanical Ventilator 01/28/18 16:00 60 01/28/18 16:00 87 01/28/18 16:00 22 Mechanical Ventilator 60 01/28/18 16:00 98.0 84 26 106/61 (76) 94 01/28/18 15:32 76 32 60 01/28/18 15:30 84 30 110/91 (97) 88 01/28/18 15:00 79 30 95/56 (69) 100 01/28/18 15:00 20 Mechanical Ventilator 60 01/28/18 14:30 79 30 106/52 (70) 100 01/28/18 14:00 21 Mechanical Ventilator 60 01/28/18 14:00 98 30 94/51 (65) 100 01/28/18 13:45 105 30 60 01/28/18 13:44 105 30 96 Mechanical Ventilator 60 01/28/18 13:32 105 30 98 Endotracheal Tube 60 01/28/18 13:30 92 30 96/50 (65) 99 Intake and Output 01/28/18 01/29/18 18:59 06:59 Intake Total 2186.416 ml 2248 ml Output Total 655 ml 680 ml Balance 1531.416 ml 1568 ml IV Total 1436.416 ml 1608 ml Tube Feeding 600 ml 600 ml Other 150 ml 40 ml Output Urine Total 655 ml 680 ml Laboratory Tests 01/29/18 04:52: White Blood Count 15.4H, Red Blood Count 3.52L, Hemoglobin 11.4L, Hematocrit 35.3L, Mean Corpuscular Volume 100H, Mean Corpuscular Hemoglobin 32.3H, Mean Corpuscular Hemoglobin Concent 32.3, Red Cell Distribution Width 14.2, Platelet Count 139L, Mean Platelet Volume 7.2, Neutrophils (%) (Auto) 83.8H, Lymphocytes (%) (Auto) 10.0L, Monocytes (%) (Auto) 4.2, Eosinophils (%) (Auto) 1.7, Basophils (%) (Auto) 0.4, Sodium Level 149H, Potassium Level 5.4H, Chloride Level 116H, Carbon Dioxide Level 29, Anion Gap 5, Blood Urea Nitrogen 41H, Creatinine 1.2, Estimat Glomerular Filtration Rate , Glucose Level 122H, Calcium Level 7.9L, Phosphorus Level 2.9, Magnesium Level 2.1, Total Bilirubin 1.1H, Direct Bilirubin 0.6H, Aspartate Amino Transf (AST/SGOT) 26, Alanine Aminotransferase (ALT/SGPT) 23, Alkaline Phosphatase 94, Total Protein 6.3L, Albumin 1.6L, Globulin 4.7, Albumin/Globulin Ratio 0.3L 01/29/18 06:02: C-Reactive Protein, Quantitative 33.7H 01/29/18 08:17: Arterial Blood pH 7.220*L, Arterial Blood Partial Pressure CO2 63.6*H, Arterial Blood Partial Pressure O2 77.7, Arterial Blood HCO3 25.7, Arterial Blood Oxygen Saturation 93.9L, Arterial Blood Base Excess -2.8L, Dima Test Positive 01/29/18 11:05: Vancomycin Level Trough 17.3H Height (Feet): 5 Height (Inches): 9.00 Weight (Pounds): 150 Abdomen: soft Edwin Corrigan MD Jan 29, 2018 13:08
--- NOTE | 2018-01-29 15:09 | General Surgery Progress Note ---
General Surgery-Progress Note Subjective Additional Comments no acute events. still in ICU. leukocytosis 15k. micro noted Objective Last 24 Hour Vital Signs Date Time Temp Pulse Resp B/P (MAP) Pulse Ox O2 Delivery O2 Flow Rate FiO2 01/29/18 14:45 87 30 50 01/29/18 13:36 78 30 95 Mechanical Ventilator 60 01/29/18 13:30 80 28 111/49 (69) 96 01/29/18 13:26 77 30 96 Endotracheal Tube 60 01/29/18 13:24 78 30 50 01/29/18 13:00 78 30 103/46 (65) 99 01/29/18 12:30 77 30 95/46 (62) 99 01/29/18 12:00 Mechanical Ventilator 01/29/18 12:00 99.2 79 30 101/53 (69) 97 01/29/18 12:00 50 01/29/18 12:00 78 01/29/18 11:30 79 22 114/56 (75) 92 01/29/18 11:00 71 25 98/53 (68) 100 01/29/18 10:57 50 01/29/18 10:43 81 30 60 01/29/18 10:30 78 22 121/69 (86) 100 01/29/18 10:30 50 01/29/18 10:00 96 30 100/57 (71) 100 01/29/18 09:30 101 30 100/52 (68) 100 01/29/18 09:18 111 30 60 01/29/18 09:00 109 30 102/53 (69) 100 01/29/18 08:34 94 127/60 01/29/18 08:33 30 Mechanical Ventilator 60 01/29/18 08:30 115 29 119/52 (74) 100 01/29/18 08:00 Mechanical Ventilator 01/29/18 08:00 60 01/29/18 08:00 100.1 115 29 127/60 (82) 100 01/29/18 08:00 116 01/29/18 07:30 94 28 142/59 (86) 100 01/29/18 07:26 88 30 100 Mechanical Ventilator 60 01/29/18 07:16 83 30 100 Endotracheal Tube 60 01/29/18 07:15 83 30 60 01/29/18 07:00 30 Mechanical Ventilator 60 01/29/18 07:00 84 30 95/52 (66) 100 01/29/18 06:30 109 30 123/98 (106) 96 01/29/18 06:00 30 Mechanical Ventilator 60 01/29/18 06:00 93 30 110/47 (68) 92 01/29/18 05:30 87 30 107/49 (68) 96 01/29/18 05:05 91 30 60 01/29/18 05:00 30 Mechanical Ventilator 60 01/29/18 05:00 88 30 130/48 (75) 96 01/29/18 04:00 Mechanical Ventilator 01/29/18 04:00 60 01/29/18 04:00 24 Mechanical Ventilator 60 01/29/18 04:00 98.9 79 24 105/54 (71) 97 01/29/18 03:30 83 24 107/52 (70) 96 01/29/18 03:21 112 01/29/18 03:00 116 26 133/56 (81) 87 01/29/18 03:00 26 Mechanical Ventilator 60 01/29/18 02:40 92 32 60 01/29/18 02:30 76 30 102/52 (69) 97 01/29/18 02:00 76 30 105/57 (73) 97 01/29/18 02:00 30 Mechanical Ventilator 60 01/29/18 01:30 77 30 101/51 (68) 97 01/29/18 01:00 30 Mechanical Ventilator 60 01/29/18 01:00 75 30 101/50 (67) 97 01/29/18 00:42 75 30 99 Mechanical Ventilator 60 01/29/18 00:36 30 Mechanical Ventilator 60 01/29/18 00:34 75 30 60 01/29/18 00:33 75 30 97 Endotracheal Tube 60 01/29/18 00:30 73 30 101/48 (65) 100 01/29/18 00:00 Mechanical Ventilator 01/29/18 00:00 30 Mechanical Ventilator 60 01/29/18 00:00 98.9 75 30 100/50 (67) 96 01/29/18 00:00 60 01/28/18 23:33 74 01/28/18 23:30 73 30 99/47 (64) 89 01/28/18 23:00 73 30 105/56 (72) 97 01/28/18 23:00 30 Mechanical Ventilator 60 01/28/18 22:36 74 30 60 01/28/18 22:30 73 30 97/53 (68) 97 01/28/18 22:00 101 26 103/51 (68) 96 01/28/18 22:00 26 Mechanical Ventilator 60 01/28/18 21:30 87 30 92/50 (64) 95 01/28/18 21:07 85 30 60 01/28/18 21:00 88 28 101/55 (70) 94 01/28/18 21:00 30 Mechanical Ventilator 60 01/28/18 20:50 30 Mechanical Ventilator 60 01/28/18 20:45 30 Mechanical Ventilator 60 01/28/18 20:40 30 Mechanical Ventilator 60 01/28/18 20:35 32 Mechanical Ventilator 60 01/28/18 20:34 112 134/67 01/28/18 20:30 112 29 134/67 (89) 89 01/28/18 20:30 29 Mechanical Ventilator 60 01/28/18 20:00 60 01/28/18 20:00 80 01/28/18 20:00 Mechanical Ventilator 01/28/18 20:00 28 Mechanical Ventilator 60 01/28/18 20:00 99.4 86 28 111/64 (80) 95 01/28/18 19:30 87 24 119/57 (77) 91 01/28/18 19:01 93 30 98 Mechanical Ventilator 60 01/28/18 19:00 30 Mechanical Ventilator 60 01/28/18 19:00 111 30 96/55 (69) 98 01/28/18 18:54 84 32 94 Endotracheal Tube 60 01/28/18 18:53 83 32 60 01/28/18 18:30 84 26 119/59 (79) 96 01/28/18 18:00 82 26 109/56 (73) 92 01/28/18 18:00 22 Mechanical Ventilator 60 01/28/18 17:37 84 32 60 01/28/18 17:30 79 26 112/48 (69) 94 01/28/18 17:00 28 Mechanical Ventilator 60 01/28/18 17:00 110 24 102/60 (74) 30 01/28/18 16:38 28 60 01/28/18 16:30 110 23 102/60 (74) 93 01/28/18 16:00 Mechanical Ventilator 01/28/18 16:00 60 01/28/18 16:00 87 01/28/18 16:00 22 Mechanical Ventilator 60 01/28/18 16:00 98.0 84 26 106/61 (76) 94 01/28/18 15:32 76 32 60 01/28/18 15:30 84 30 110/91 (97) 88 I&O Intake and Output 01/28/18 01/29/18 18:59 06:59 Intake Total 2186.416 ml 2248 ml Output Total 655 ml 680 ml Balance 1531.416 ml 1568 ml IV Total 1436.416 ml 1608 ml Tube Feeding 600 ml 600 ml Other 150 ml 40 ml Output Urine Total 655 ml 680 ml Dressing: other Wound: other Drains: other Cardiovascular: RSR Respiratory: decreased breath sounds Abdomen: soft, non-tender, present bowel sounds Extremities: no cyanosis, other Laboratory Tests Test 01/29/18 04:52 01/29/18 06:02 01/29/18 08:17 01/29/18 11:05 White Blood Count 15.4 K/UL (4.8-10.8) H Red Blood Count 3.52 M/UL (4.70-6.10) L Hemoglobin 11.4 G/DL (14.2-18.0) L Hematocrit 35.3 % (42.0-52.0) L Mean Corpuscular Volume 100 FL (80-99) H Mean Corpuscular Hemoglobin 32.3 PG (27.0-31.0) H Mean Corpuscular Hemoglobin Concent 32.3 G/DL (32.0-36.0) Red Cell Distribution Width 14.2 % (11.6-14.8) Platelet Count 139 K/UL (150-450) L Mean Platelet Volume 7.2 FL (6.5-10.1) Neutrophils (%) (Auto) 83.8 % (45.0-75.0) H Lymphocytes (%) (Auto) 10.0 % (20.0-45.0) L Monocytes (%) (Auto) 4.2 % (1.0-10.0) Eosinophils (%) (Auto) 1.7 % (0.0-3.0) Basophils (%) (Auto) 0.4 % (0.0-2.0) Sodium Level 149 MMOL/L (136-145) H Potassium Level 5.4 MMOL/L (3.5-5.1) H Chloride Level 116 MMOL/L (98-107) H Carbon Dioxide Level 29 MMOL/L (21-32) Anion Gap 5 mmol/L (5-15) Blood Urea Nitrogen 41 mg/dL (7-18) H Creatinine 1.2 MG/DL (0.55-1.30) Estimat Glomerular Filtration Rate mL/min (>60) Glucose Level 122 MG/DL (74-106) H Calcium Level 7.9 MG/DL (8.5-10.1) L Phosphorus Level 2.9 MG/DL (2.5-4.9) Magnesium Level 2.1 MG/DL (1.8-2.4) Total Bilirubin 1.1 MG/DL (0.2-1.0) H Direct Bilirubin 0.6 MG/DL (0.0-0.3) H Aspartate Amino Transf (AST/SGOT) 26 U/L (15-37) Alanine Aminotransferase (ALT/SGPT) 23 U/L (12-78) Alkaline Phosphatase 94 U/L (46-116) Total Protein 6.3 G/DL (6.4-8.2) L Albumin 1.6 G/DL (3.4-5.0) L Globulin 4.7 g/dL Albumin/Globulin Ratio 0.3 (1.0-2.7) L C-Reactive Protein, Quantitative 33.7 mg/dL (0.00-0.90) H Arterial Blood pH 7.220 (7.350-7.450) Arterial Blood Partial Pressure CO2 63.6 mmHg (35.0-45.0) *H Arterial Blood Partial Pressure O2 77.7 mmHg (75.0-100.0) Arterial Blood HCO3 25.7 mmol/L (22.0-26.0) Arterial Blood Oxygen Saturation 93.9 % (95-100) L Arterial Blood Base Excess -2.8 (-2-2) L Dima Test Positive Vancomycin Level Trough 17.3 ug/mL (5.0-12.0) H Plan Problems: (1) Decubitus ulcer of sacral region, stage 3 Assessment & Plan: Stage III full thickness pressure injury sacrum present on admission (L)2cm x (W)1.8cm ,wound bed with 80% yellow slough ,20% granular Borders slightly macerated. Non-blanching erythema without elevation in skin temp, or induration periwound. NO odor noted. Abrasions noted to R elbow (L)3.2cm x (W)1.9cm.Wound with Biofilm ,erythema al; lynn borders .Periwound clean and intact. Abrasion noted to L elbow(L)5.5cm x (W)1.6cm ,biofim noted to wound bed .erythema along borders .Periwound without erythema or elevation in skin temp. Abrasion lateral L knee with dry scab. Abrasion medial R knee with dry scab. Bilat heels boggy with non-blanching erythema. Non-tender when palpated. Pt repositioned with pillow on his side but restless and repositioned self on back. Caregivers presents and made aware of pressure injury to sacrum and interventions implemented to prevent further skin breakdown. Tx.Plan: Cleanse R and L elbows with Saline.Apply Silvasorb Gel to both elbows .Cover with Optifoam drsg .Change every 3 Days and prn. Cleanse Sacral Pressure injury with Saline.Apply Therahoney .Cavilon periwound.Cover with Optifoam drsg Daily and prn. Apply Cavilon to Both heels.Cover with Optifoam drsg .Change Every 7 days and prn. Cavilon to abrasions R and L lower ext.Cover with Optifoam change every 7 days and prn. Off-load heels with pillow. Reposition at least every 2 hours or as tolerated. Surface support mattress. (2) Abnormal LFTs Assessment & Plan: US reviewed - absent GB dilated ducts CT reviewed - dilated duct without notable obstruction LFT's noted and elevated t bili trending down no jaundice AST/ALT nml Alk phos nml -no acute surgical intervention necessary -t bili and d bili correlate. unlikely obstructive at this time. especially with history of cholecystectomy prior -trend labs thank you (3) Severe sepsis Myke Merino Jan 29, 2018 15:09
--- NOTE | 2018-01-29 15:31 | Cardiac Electrophysiology PN ---
Assessment/Plan Assessment/Plan 1. Troponin Leak. The levels are flat. Likely due to the respiratory failure and azotemia. Echo normal left ventricular systolic function. 2. Respiratory failure, due to PNA and CHF. The patient is on the ventilator. Antibiotic per ID Continue to wean per Dr. Johnson 3. Hypokalemia, potassium was replaced. 4. Azotemia. Sodium is 147. FU Dr Mclaughlin 5. Elevated bilirubin of 2.3. DW RN Subjective Subjective In ICU on the Vent and on fentanyl drip down to 100mcg. Remained in SR. No fib. Objective Last 24 Hour Vital Signs Date Time Temp Pulse Resp B/P (MAP) Pulse Ox O2 Delivery O2 Flow Rate FiO2 01/29/18 14:45 87 30 50 01/29/18 13:36 78 30 95 Mechanical Ventilator 60 01/29/18 13:30 80 28 111/49 (69) 96 01/29/18 13:26 77 30 96 Endotracheal Tube 60 01/29/18 13:24 78 30 50 01/29/18 13:00 78 30 103/46 (65) 99 01/29/18 12:30 77 30 95/46 (62) 99 01/29/18 12:00 Mechanical Ventilator 01/29/18 12:00 99.2 79 30 101/53 (69) 97 01/29/18 12:00 50 01/29/18 12:00 78 01/29/18 11:30 79 22 114/56 (75) 92 01/29/18 11:00 71 25 98/53 (68) 100 01/29/18 10:57 50 01/29/18 10:43 81 30 60 01/29/18 10:30 78 22 121/69 (86) 100 01/29/18 10:30 50 01/29/18 10:00 96 30 100/57 (71) 100 01/29/18 09:30 101 30 100/52 (68) 100 01/29/18 09:18 111 30 60 01/29/18 09:00 109 30 102/53 (69) 100 01/29/18 08:34 94 127/60 01/29/18 08:33 30 Mechanical Ventilator 60 01/29/18 08:30 115 29 119/52 (74) 100 01/29/18 08:00 Mechanical Ventilator 01/29/18 08:00 60 01/29/18 08:00 100.1 115 29 127/60 (82) 100 01/29/18 08:00 116 01/29/18 07:30 94 28 142/59 (86) 100 01/29/18 07:26 88 30 100 Mechanical Ventilator 60 01/29/18 07:16 83 30 100 Endotracheal Tube 60 01/29/18 07:15 83 30 60 01/29/18 07:00 30 Mechanical Ventilator 60 01/29/18 07:00 84 30 95/52 (66) 100 01/29/18 06:30 109 30 123/98 (106) 96 01/29/18 06:00 30 Mechanical Ventilator 60 01/29/18 06:00 93 30 110/47 (68) 92 01/29/18 05:30 87 30 107/49 (68) 96 01/29/18 05:05 91 30 60 01/29/18 05:00 30 Mechanical Ventilator 60 01/29/18 05:00 88 30 130/48 (75) 96 01/29/18 04:00 Mechanical Ventilator 01/29/18 04:00 60 01/29/18 04:00 24 Mechanical Ventilator 60 01/29/18 04:00 98.9 79 24 105/54 (71) 97 01/29/18 03:30 83 24 107/52 (70) 96 01/29/18 03:21 112 01/29/18 03:00 116 26 133/56 (81) 87 01/29/18 03:00 26 Mechanical Ventilator 60 01/29/18 02:40 92 32 60 01/29/18 02:30 76 30 102/52 (69) 97 01/29/18 02:00 76 30 105/57 (73) 97 01/29/18 02:00 30 Mechanical Ventilator 60 01/29/18 01:30 77 30 101/51 (68) 97 01/29/18 01:00 30 Mechanical Ventilator 60 01/29/18 01:00 75 30 101/50 (67) 97 01/29/18 00:42 75 30 99 Mechanical Ventilator 60 01/29/18 00:36 30 Mechanical Ventilator 60 01/29/18 00:34 75 30 60 01/29/18 00:33 75 30 97 Endotracheal Tube 60 01/29/18 00:30 73 30 101/48 (65) 100 01/29/18 00:00 Mechanical Ventilator 01/29/18 00:00 30 Mechanical Ventilator 60 01/29/18 00:00 98.9 75 30 100/50 (67) 96 01/29/18 00:00 60 01/28/18 23:33 74 01/28/18 23:30 73 30 99/47 (64) 89 01/28/18 23:00 73 30 105/56 (72) 97 01/28/18 23:00 30 Mechanical Ventilator 60 01/28/18 22:36 74 30 60 01/28/18 22:30 73 30 97/53 (68) 97 01/28/18 22:00 101 26 103/51 (68) 96 01/28/18 22:00 26 Mechanical Ventilator 60 01/28/18 21:30 87 30 92/50 (64) 95 01/28/18 21:07 85 30 60 01/28/18 21:00 88 28 101/55 (70) 94 01/28/18 21:00 30 Mechanical Ventilator 60 01/28/18 20:50 30 Mechanical Ventilator 60 01/28/18 20:45 30 Mechanical Ventilator 60 01/28/18 20:40 30 Mechanical Ventilator 60 01/28/18 20:35 32 Mechanical Ventilator 60 01/28/18 20:34 112 134/67 01/28/18 20:30 112 29 134/67 (89) 89 01/28/18 20:30 29 Mechanical Ventilator 60 01/28/18 20:00 60 01/28/18 20:00 80 01/28/18 20:00 Mechanical Ventilator 01/28/18 20:00 28 Mechanical Ventilator 60 01/28/18 20:00 99.4 86 28 111/64 (80) 95 01/28/18 19:30 87 24 119/57 (77) 91 01/28/18 19:01 93 30 98 Mechanical Ventilator 60 01/28/18 19:00 30 Mechanical Ventilator 60 01/28/18 19:00 111 30 96/55 (69) 98 01/28/18 18:54 84 32 94 Endotracheal Tube 60 01/28/18 18:53 83 32 60 01/28/18 18:30 84 26 119/59 (79) 96 01/28/18 18:00 82 26 109/56 (73) 92 01/28/18 18:00 22 Mechanical Ventilator 60 01/28/18 17:37 84 32 60 12/8/18 17:30 79 26 112/48 (69) 94 01/28/18 17:00 28 Mechanical Ventilator 60 01/28/18 17:00 110 24 102/60 (74) 30 01/28/18 16:38 28 60 01/28/18 16:30 110 23 102/60 (74) 93 01/28/18 16:00 Mechanical Ventilator 01/28/18 16:00 60 01/28/18 16:00 87 01/28/18 16:00 22 Mechanical Ventilator 60 01/28/18 16:00 98.0 84 26 106/61 (76) 94 01/28/18 15:32 76 32 60 01/28/18 15:30 84 30 110/91 (97) 88 Intake and Output 01/28/18 01/29/18 19:00 07:00 Intake Total 2182.416 ml 2237 ml Output Total 675 ml 665 ml Balance 1507.416 ml 1572 ml IV Total 1432.416 ml 1597 ml Tube Feeding 600 ml 600 ml Other 150 ml 40 ml Output Urine Total 675 ml 665 ml Laboratory Tests Test 01/29/18 04:52 01/29/18 06:02 01/29/18 08:17 01/29/18 11:05 White Blood Count 15.4 K/UL (4.8-10.8) H Red Blood Count 3.52 M/UL (4.70-6.10) L Hemoglobin 11.4 G/DL (14.2-18.0) L Hematocrit 35.3 % (42.0-52.0) L Mean Corpuscular Volume 100 FL (80-99) H Mean Corpuscular Hemoglobin 32.3 PG (27.0-31.0) H Mean Corpuscular Hemoglobin Concent 32.3 G/DL (32.0-36.0) Red Cell Distribution Width 14.2 % (11.6-14.8) Platelet Count 139 K/UL (150-450) L Mean Platelet Volume 7.2 FL (6.5-10.1) Neutrophils (%) (Auto) 83.8 % (45.0-75.0) H Lymphocytes (%) (Auto) 10.0 % (20.0-45.0) L Monocytes (%) (Auto) 4.2 % (1.0-10.0) Eosinophils (%) (Auto) 1.7 % (0.0-3.0) Basophils (%) (Auto) 0.4 % (0.0-2.0) Sodium Level 149 MMOL/L (136-145) H Potassium Level 5.4 MMOL/L (3.5-5.1) H Chloride Level 116 MMOL/L (98-107) H Carbon Dioxide Level 29 MMOL/L (21-32) Anion Gap 5 mmol/L (5-15) Blood Urea Nitrogen 41 mg/dL (7-18) H Creatinine 1.2 MG/DL (0.55-1.30) Estimat Glomerular Filtration Rate mL/min (>60) Glucose Level 122 MG/DL (74-106) H Calcium Level 7.9 MG/DL (8.5-10.1) L Phosphorus Level 2.9 MG/DL (2.5-4.9) Magnesium Level 2.1 MG/DL (1.8-2.4) Total Bilirubin 1.1 MG/DL (0.2-1.0) H Direct Bilirubin 0.6 MG/DL (0.0-0.3) H Aspartate Amino Transf (AST/SGOT) 26 U/L (15-37) Alanine Aminotransferase (ALT/SGPT) 23 U/L (12-78) Alkaline Phosphatase 94 U/L (46-116) Total Protein 6.3 G/DL (6.4-8.2) L Albumin 1.6 G/DL (3.4-5.0) L Globulin 4.7 g/dL Albumin/Globulin Ratio 0.3 (1.0-2.7) L C-Reactive Protein, Quantitative 33.7 mg/dL (0.00-0.90) H Arterial Blood pH 7.220 (7.350-7.450) Arterial Blood Partial Pressure CO2 63.6 mmHg (35.0-45.0) *H Arterial Blood Partial Pressure O2 77.7 mmHg (75.0-100.0) Arterial Blood HCO3 25.7 mmol/L (22.0-26.0) Arterial Blood Oxygen Saturation 93.9 % (95-100) L Arterial Blood Base Excess -2.8 (-2-2) L Dima Test Positive Vancomycin Level Trough 17.3 ug/mL (5.0-12.0) H Objective HEAD AND NECK: No JVD, orally intubated. LUNGS: Coarse rhonchi bilaterally. CARDIOVASCULAR: Regular S1 and S2 with no murmur. ABDOMEN: Soft. EXTREMITIES: No pitting edema, Josep Brar MD Jan 29, 2018 15:31
[2018-01-29] MEDS: Azithromycin 250 MG in D5W 275 ML IV SCH (19:39)
--- NOTE | 2018-01-29 22:35 | General Progress Note ---
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 Subjective Neurologic/Psychiatric: Reports: anxiety Allergies: Coded Allergies: No Known Allergies (Unverified , 01/24/18) Subjective the pt is on fentanyl for agitation. the pt is calm now cont to have episodes of agitation Objective Last 24 Hour Vital Signs Date Time Temp Pulse Resp B/P (MAP) Pulse Ox O2 Delivery O2 Flow Rate FiO2 01/29/18 22:00 73 20 103/86 (92) 96 01/29/18 21:30 84 20 136/85 (102) 96 01/29/18 21:15 90 32 50 01/29/18 21:09 106 122/49 01/29/18 21:00 109 17 122/49 (73) 96 01/29/18 20:30 113 28 136/85 (102) 96 01/29/18 20:00 99.6 92 23 142/62 (88) 96 01/29/18 20:00 50 01/29/18 20:00 Mechanical Ventilator 01/29/18 19:30 112 14 138/53 (81) 96 01/29/18 19:09 102 30 100 Mechanical Ventilator 60 01/29/18 19:05 96 30 50 01/29/18 19:01 79 31 96 Endotracheal Tube 60 01/29/18 19:00 109 22 138/53 (81) 95 01/29/18 18:30 84 27 150/78 (102) 95 01/29/18 18:00 88 25 134/64 (87) 91 01/29/18 18:00 20 Mechanical Ventilator 50 01/29/18 17:30 80 27 111/46 (67) 96 01/29/18 17:00 23 Mechanical Ventilator 50 01/29/18 17:00 81 30 114/52 (72) 97 12/9/18 16:42 83 30 50 01/29/18 16:42 27 Mechanical Ventilator 50 01/29/18 16:30 79 26 142/48 (79) 94 01/29/18 16:00 80 01/29/18 16:00 50 01/29/18 16:00 99.0 80 26 105/45 (65) 95 01/29/18 16:00 Mechanical Ventilator 01/29/18 15:30 81 21 118/54 (75) 94 01/29/18 15:00 24 Mechanical Ventilator 50 01/29/18 15:00 81 24 97/51 (66) 97 01/29/18 14:45 87 30 50 01/29/18 14:30 78 24 111/51 (71) 95 01/29/18 14:00 24 Mechanical Ventilator 50 01/29/18 14:00 79 24 110/54 (72) 94 01/29/18 13:36 78 30 95 Mechanical Ventilator 60 01/29/18 13:30 80 28 111/49 (69) 96 01/29/18 13:26 77 30 96 Endotracheal Tube 60 01/29/18 13:24 78 30 50 01/29/18 13:00 78 30 103/46 (65) 99 01/29/18 13:00 30 Mechanical Ventilator 50 01/29/18 12:30 77 30 95/46 (62) 99 01/29/18 12:00 Mechanical Ventilator 01/29/18 12:00 99.2 79 30 101/53 (69) 97 01/29/18 12:00 30 Mechanical Ventilator 50 01/29/18 12:00 50 01/29/18 12:00 78 01/29/18 11:30 79 22 114/56 (75) 92 01/29/18 11:00 26 Mechanical Ventilator 50 01/29/18 11:00 71 25 98/53 (68) 100 01/29/18 10:57 50 01/29/18 10:43 81 30 60 01/29/18 10:30 78 22 121/69 (86) 100 01/29/18 10:30 50 01/29/18 10:00 96 30 100/57 (71) 100 01/29/18 10:00 30 Mechanical Ventilator 50 01/29/18 09:30 101 30 100/52 (68) 100 01/29/18 09:18 111 30 60 01/29/18 09:00 30 Mechanical Ventilator 60 01/29/18 09:00 109 30 102/53 (69) 100 01/29/18 08:34 94 127/60 01/29/18 08:33 30 Mechanical Ventilator 60 01/29/18 08:30 115 29 119/52 (74) 100 01/29/18 08:00 Mechanical Ventilator 01/29/18 08:00 60 01/29/18 08:00 100.1 115 29 127/60 (82) 100 01/29/18 08:00 116 01/29/18 07:30 94 28 142/59 (86) 100 01/29/18 07:26 88 30 100 Mechanical Ventilator 60 01/29/18 07:16 83 30 100 Endotracheal Tube 60 01/29/18 07:15 83 30 60 01/29/18 07:00 30 Mechanical Ventilator 60 01/29/18 07:00 84 30 95/52 (66) 100 01/29/18 06:30 109 30 123/98 (106) 96 01/29/18 06:00 30 Mechanical Ventilator 60 01/29/18 06:00 93 30 110/47 (68) 92 01/29/18 05:30 87 30 107/49 (68) 96 01/29/18 05:05 91 30 60 01/29/18 05:00 30 Mechanical Ventilator 60 01/29/18 05:00 88 30 130/48 (75) 96 01/29/18 04:00 Mechanical Ventilator 01/29/18 04:00 60 01/29/18 04:00 24 Mechanical Ventilator 60 01/29/18 04:00 98.9 79 24 105/54 (71) 97 01/29/18 03:30 83 24 107/52 (70) 96 01/29/18 03:21 112 01/29/18 03:00 116 26 133/56 (81) 87 01/29/18 03:00 26 Mechanical Ventilator 60 01/29/18 02:40 92 32 60 01/29/18 02:30 76 30 102/52 (69) 97 01/29/18 02:00 76 30 105/57 (73) 97 01/29/18 02:00 30 Mechanical Ventilator 60 01/29/18 01:30 77 30 101/51 (68) 97 01/29/18 01:00 30 Mechanical Ventilator 60 12/9/18 01:00 75 30 101/50 (67) 97 01/29/18 00:42 75 30 99 Mechanical Ventilator 60 01/29/18 00:36 30 Mechanical Ventilator 60 01/29/18 00:34 75 30 60 01/29/18 00:33 75 30 97 Endotracheal Tube 60 01/29/18 00:30 73 30 101/48 (65) 100 01/29/18 00:00 Mechanical Ventilator 01/29/18 00:00 30 Mechanical Ventilator 60 01/29/18 00:00 98.9 75 30 100/50 (67) 96 01/29/18 00:00 60 01/28/18 23:33 74 01/28/18 23:30 73 30 99/47 (64) 89 01/28/18 23:00 73 30 105/56 (72) 97 01/28/18 23:00 30 Mechanical Ventilator 60 01/28/18 22:36 74 30 60 Intake and Output 01/28/18 01/29/18 19:00 07:00 Intake Total 2182.416 ml 2237 ml Output Total 675 ml 665 ml Balance 1507.416 ml 1572 ml IV Total 1432.416 ml 1597 ml Tube Feeding 600 ml 600 ml Other 150 ml 40 ml Output Urine Total 675 ml 665 ml Laboratory Tests 01/29/18 04:52: White Blood Count 15.4H, Red Blood Count 3.52L, Hemoglobin 11.4L, Hematocrit 35.3L, Mean Corpuscular Volume 100H, Mean Corpuscular Hemoglobin 32.3H, Mean Corpuscular Hemoglobin Concent 32.3, Red Cell Distribution Width 14.2, Platelet Count 139L, Mean Platelet Volume 7.2, Neutrophils (%) (Auto) 83.8H, Lymphocytes (%) (Auto) 10.0L, Monocytes (%) (Auto) 4.2, Eosinophils (%) (Auto) 1.7, Basophils (%) (Auto) 0.4, Sodium Level 149H, Potassium Level 5.4H, Chloride Level 116H, Carbon Dioxide Level 29, Anion Gap 5, Blood Urea Nitrogen 41H, Creatinine 1.2, Estimat Glomerular Filtration Rate , Glucose Level 122H, Calcium Level 7.9L, Phosphorus Level 2.9, Magnesium Level 2.1, Total Bilirubin 1.1H, Direct Bilirubin 0.6H, Aspartate Amino Transf (AST/SGOT) 26, Alanine Aminotransferase (ALT/SGPT) 23, Alkaline Phosphatase 94, Total Protein 6.3L, Albumin 1.6L, Globulin 4.7, Albumin/Globulin Ratio 0.3L 01/29/18 06:02: C-Reactive Protein, Quantitative 33.7H 01/29/18 08:17: Arterial Blood pH 7.220*L, Arterial Blood Partial Pressure CO2 63.6*H, Arterial Blood Partial Pressure O2 77.7, Arterial Blood HCO3 25.7, Arterial Blood Oxygen Saturation 93.9L, Arterial Blood Base Excess -2.8L, Dima Test Positive 01/29/18 11:05: Vancomycin Level Trough 17.3H Height (Feet): 5 Height (Inches): 9.00 Weight (Pounds): 151 General Appearance: lethargic, confused, agitated Collin Smith MD Jan 29, 2018 22:35
[2018-01-30] VITALS (49 sets, daily range): BP systolic 103–160; BP diastolic 40–89
[2018-01-30] MEDS: Albuterol/Ipratropium 3ml neb HHN SCH ×3 (01:20→12:50)
[2018-01-30 05:27] LABS: HEMATOCRIT 33.4 % (42.0-52.0); MEAN CORPUSCULAR VOLUME 98 FL (80-99); PLATELET COUNT 145 K/UL (150-450); RED BLOOD COUNT 3.42 M/UL (4.70-6.10); RED CELL DISTRIBUTION WIDTH 13.6 % (11.6-14.8); WHITE BLOOD COUNT 15.6 K/UL (4.8-10.8)
[2018-01-30 05:58] LABS: ALANINE AMINOTRANSFERASE 17 U/L (12-78); ALBUMIN 1.6 G/DL (3.4-5.0); ALBUMIN/GLOBULIN RATIO 0.3 (1.0-2.7); ALKALINE PHOSPHATASE 87 U/L (46-116); ANION GAP 8 mmol/L (5-15); ASPARTATE AMINO TRANSFERASE 22 U/L (15-37); BILIRUBIN,TOTAL 1.1 MG/DL (0.2-1.0); BLOOD UREA NITROGEN 41 mg/dL (7-18); CALCIUM 8.2 MG/DL (8.5-10.1); CARBON DIOXIDE 26 MMOL/L (21-32); CHLORIDE 112 MMOL/L (98-107); PHOSPHORUS 2.7 MG/DL (2.5-4.9); POTASSIUM 5.8 MMOL/L (3.5-5.1); SODIUM 145 MMOL/L (136-145)
[2018-01-30 06:00] LABS: BILIRUBIN,DIRECT 0.5 MG/DL (0.0-0.3)
[2018-01-30] MEDS: D5 1/2NS 1,000 ML IV SCH ×2 (06:12→22:13)
--- NOTE | 2018-01-30 07:21 | General Progress Note ---
Assessment/Plan Assessment/Plan ASSESSMENT AND RECOMMENDATIONS # Leukocytosis. Secondary to sepsis and pna. is on abx at this time --> Peripheral has been ordered and reviewed and no blasts are noted --> Medications have been reviewed --> Imaging has been reviewed, reveals apparent worsening of bilateral parenchymal disease --> Blood cultures and urine cultures are reviewed --> has been started on abx, empiric treatment --> lactic acid 2.4--> 2.1-->1.7 # Anemia of chronic disease due to underlying chronic medical issues, multifactorial. --> Given downtrending hgb, will order a anemia panel --> Cont to monitor for stability --> hgb 13-->11.2-->11 # Coagulopathy is now off hep gtt --> order hepatitis and hiv --> pt and mixing study # Pneumonia. # Urinary tract infection. --> s/p abx # Status post recurrent falls. # Sepsis. # Dehydration. # Afib and now in sr --> as per cards # Respiratory failure is on a vent --> per pulm GREATLY APPRECIATE CONSULTATION. Subjective ROS Limited/Unobtainable: Yes Allergies: Coded Allergies: No Known Allergies (Unverified , 01/24/18) Subjective on vent minimally responsive besides to commands, in icu Objective Last 24 Hour Vital Signs Date Time Temp Pulse Resp B/P (MAP) Pulse Ox O2 Delivery O2 Flow Rate FiO2 01/30/18 07:02 84 30 99 Mechanical Ventilator 50 01/30/18 07:00 84 17 103/71 (82) 95 01/30/18 06:56 78 30 50 01/30/18 06:55 83 30 97 Mechanical Ventilator 50 01/30/18 06:55 50 01/30/18 06:30 83 22 138/65 (89) 94 01/30/18 06:00 78 29 127/58 (81) 97 01/30/18 06:00 29 Mechanical Ventilator 50 01/30/18 05:30 108 20 139/69 (92) 98 01/30/18 05:29 99 31 Mechanical Ventilator 50 01/30/18 05:07 80 31 50 01/30/18 05:00 81 25 132/69 (90) 97 01/30/18 05:00 25 Mechanical Ventilator 50 01/30/18 04:30 84 26 143/71 (95) 89 01/30/18 04:00 Mechanical Ventilator 01/30/18 04:00 20 Mechanical Ventilator 50 01/30/18 04:00 50 01/30/18 04:00 97.5 80 20 141/65 (90) 96 01/30/18 03:30 79 20 136/40 (72) 96 01/30/18 03:27 79 01/30/18 03:14 87 30 50 01/30/18 03:00 20 Mechanical Ventilator 50 01/30/18 03:00 79 20 136/65 (88) 94 01/30/18 02:30 79 20 135/89 (104) 95 01/30/18 02:09 19 Mechanical Ventilator 50 01/30/18 02:00 107 26 124/59 (80) 97 01/30/18 02:00 26 Mechanical Ventilator 50 01/30/18 01:31 77 30 99 Mechanical Ventilator 50 01/30/18 01:30 77 30 143/75 (97) 100 01/30/18 01:21 78 2 99 Endotracheal Tube 50 01/30/18 01:20 80 33 50 01/30/18 01:00 107 30 108/47 (67) 87 01/30/18 01:00 30 Mechanical Ventilator 50 01/30/18 00:30 77 21 113/69 (84) 90 01/30/18 00:00 50 01/30/18 00:00 Mechanical Ventilator 01/30/18 00:00 30 Mechanical Ventilator 50 01/30/18 00:00 98.9 106 24 128/79 (95) 89 01/29/18 23:57 105 01/29/18 23:30 74 23 128/83 (98) 97 01/29/18 23:28 72 32 50 01/29/18 23:00 71 30 100/48 (65) 97 01/29/18 23:00 30 Mechanical Ventilator 50 01/29/18 22:30 99 30 109/58 (75) 96 01/29/18 22:00 73 20 103/86 (92) 96 01/29/18 22:00 20 Mechanical Ventilator 50 01/29/18 21:30 84 20 136/85 (102) 96 01/29/18 21:15 90 32 50 01/29/18 21:09 106 122/49 01/29/18 21:00 109 17 122/49 (73) 96 01/29/18 21:00 28 Mechanical Ventilator 50 01/29/18 20:30 113 28 136/85 (102) 96 01/29/18 20:00 99.6 92 23 142/62 (88) 96 01/29/18 20:00 50 01/29/18 20:00 23 Mechanical Ventilator 50 01/29/18 20:00 Mechanical Ventilator 01/29/18 19:52 91 01/29/18 19:30 112 14 138/53 (81) 96 01/29/18 19:09 102 30 100 Mechanical Ventilator 50 01/29/18 19:05 96 30 50 01/29/18 19:01 79 31 96 Endotracheal Tube 50 01/29/18 19:00 25 Mechanical Ventilator 50 01/29/18 19:00 109 22 138/53 (81) 95 01/29/18 18:30 84 27 150/78 (102) 95 01/29/18 18:00 88 25 134/64 (87) 91 01/29/18 18:00 20 Mechanical Ventilator 50 01/29/18 17:30 80 27 111/46 (67) 96 01/29/18 17:00 23 Mechanical Ventilator 50 01/29/18 17:00 81 30 114/52 (72) 97 01/29/18 16:42 83 30 50 01/29/18 16:42 27 Mechanical Ventilator 50 01/29/18 16:30 79 26 142/48 (79) 94 01/29/18 16:00 80 01/29/18 16:00 50 01/29/18 16:00 99.0 80 26 105/45 (65) 95 01/29/18 16:00 Mechanical Ventilator 01/29/18 15:30 81 21 118/54 (75) 94 01/29/18 15:00 24 Mechanical Ventilator 50 01/29/18 15:00 81 24 97/51 (66) 97 01/29/18 14:45 87 30 50 01/29/18 14:30 78 24 111/51 (71) 95 01/29/18 14:00 24 Mechanical Ventilator 50 01/29/18 14:00 79 24 110/54 (72) 94 01/29/18 13:36 78 30 95 Mechanical Ventilator 60 01/29/18 13:30 80 28 111/49 (69) 96 01/29/18 13:26 77 30 96 Endotracheal Tube 60 01/29/18 13:24 78 30 50 01/29/18 13:00 78 30 103/46 (65) 99 01/29/18 13:00 30 Mechanical Ventilator 50 01/29/18 12:30 77 30 95/46 (62) 99 01/29/18 12:00 Mechanical Ventilator 01/29/18 12:00 99.2 79 30 101/53 (69) 97 01/29/18 12:00 30 Mechanical Ventilator 50 01/29/18 12:00 50 01/29/18 12:00 78 01/29/18 11:30 79 22 114/56 (75) 92 01/29/18 11:00 26 Mechanical Ventilator 50 01/29/18 11:00 71 25 98/53 (68) 100 01/29/18 10:57 50 01/29/18 10:43 81 30 60 01/29/18 10:30 78 22 121/69 (86) 100 01/29/18 10:30 50 01/29/18 10:00 96 30 100/57 (71) 100 01/29/18 10:00 30 Mechanical Ventilator 50 01/29/18 09:30 101 30 100/52 (68) 100 01/29/18 09:18 111 30 60 01/29/18 09:00 30 Mechanical Ventilator 60 01/29/18 09:00 109 30 102/53 (69) 100 01/29/18 08:34 94 127/60 01/29/18 08:33 30 Mechanical Ventilator 60 01/29/18 08:30 115 29 119/52 (74) 100 01/29/18 08:00 Mechanical Ventilator 01/29/18 08:00 60 01/29/18 08:00 100.1 115 29 127/60 (82) 100 01/29/18 08:00 116 01/29/18 07:30 94 28 142/59 (86) 100 01/29/18 07:26 88 30 100 Mechanical Ventilator 60 Intake and Output 01/29/18 01/30/18 19:00 07:00 Intake Total 1741.416 ml 1246.6 ml Output Total 745 ml 740 ml Balance 996.416 ml 506.6 ml Intake Oral 0 ml 0 ml IV Total 991.416 ml 1206.6 ml Tube Feeding 550 ml Other 200 ml 40 ml Output Urine Total 745 ml 740 ml Laboratory Tests 01/29/18 08:17: Arterial Blood pH 7.220*L, Arterial Blood Partial Pressure CO2 63.6*H, Arterial Blood Partial Pressure O2 77.7, Arterial Blood HCO3 25.7, Arterial Blood Oxygen Saturation 93.9L, Arterial Blood Base Excess -2.8L, Dima Test Positive 01/29/18 11:05: Vancomycin Level Trough 17.3H 01/30/18 04:40: White Blood Count 15.6H, Red Blood Count 3.42L, Hemoglobin 11.0L, Hematocrit 33.4L, Mean Corpuscular Volume 98, Mean Corpuscular Hemoglobin 32.2H, Mean Corpuscular Hemoglobin Concent 32.9, Red Cell Distribution Width 13.6, Platelet Count 145L, Mean Platelet Volume 7.6, Neutrophils (%) (Auto) , Lymphocytes (%) ( Auto) , Monocytes (%) (Auto) , Eosinophils (%) (Auto) , Basophils (%) (Auto) , Neutrophils % (Manual) [Pending], Lymphocytes % (Manual) [Pending], Platelet Estimate [Pending], Platelet Morphology [Pending], Sodium Level 145, Potassium Level 5.8H, Chloride Level 112H, Carbon Dioxide Level 26, Anion Gap 8, Blood Urea Nitrogen 41H, Creatinine 1.0, Estimat Glomerular Filtration Rate , Glucose Level 116H, Calcium Level 8.2L, Phosphorus Level 2.7, Magnesium Level 1.9, Total Bilirubin 1.1H, Direct Bilirubin 0.5H, Aspartate Amino Transf (AST/SGOT) 22, Alanine Aminotransferase (ALT/SGPT) 17, Alkaline Phosphatase 87, Pro-B-Type Natriuretic Peptide 4754H, Total Protein 6.3L, Albumin 1.6L, Globulin 4.7, Albumin/Globulin Ratio 0.3L Height (Feet): 5 Height (Inches): 9.00 Weight (Pounds): 151 EENT: TMs normal Neck: supple Cardiovascular: no gallop/murmur Respiratory/Chest: no respiratory distress, other Abdomen: no mass Extremities: non-tender Edema: mild edema Neurologic: alert Objective on vent++ Fabian Yung MD Jan 30, 2018 07:21
[2018-01-30 08:24] LABS: INR 1.2 (0.9-1.1)
[2018-01-30 08:45] LABS: FERRITIN 1660 NG/ML (8-388); LACTATE DEHYDROGENASE 323 U/L (81-234)
[2018-01-30 09:24] LABS: % IRON SATURATION 9 % (15-50); IRON 22 ug/dL (50-175); TOTAL IRON BINDING CAPACITY 243 ug/dL (250-450)
[2018-01-30] MEDS: Metoprolol 25mg tab ORAL SCH ×2 (09:57→20:26)
[2018-01-30] MEDS: Cefepime HCl 1 GM in D5W 55 ML IVPB SCH ×2 (09:57→22:01)
[2018-01-30] MEDS: Heparin 5000 units/ml inj SUBQ SCH ×2 (10:00→20:36)
[2018-01-30] MEDS: Vancomycin 1gm in D5W 275ml IVPB SCH ×2 (11:35→23:56)
--- NOTE | 2018-01-30 11:42 | Infectious Diseases Prog Note ---
Assessment/Plan Assessment/Plan A: 1. Sepsis 2. Hypoxemic respiratory failure 3. Acute renal failure. 4. Lactic acidosis. 5. Increase in bilirubin, s/p cholecystectomy 6. Pulmonary fibrosis 7. Pulmonary hypertension 8.troponin leak P; Continue Cefepime & Zithromax Will f/u sputum culture Subjective ROS Limited/Unobtainable: Yes Constitutional: Reports: no symptoms Allergies: Coded Allergies: No Known Allergies (Unverified , 01/24/18) Objective Vital Signs Last 24 Hour Vital Signs Date Time Temp Pulse Resp B/P (MAP) Pulse Ox O2 Delivery O2 Flow Rate FiO2 01/30/18 10:42 70 32 50 01/30/18 10:00 83 25 129/57 (81) 98 01/30/18 09:57 80 138/60 01/30/18 09:30 82 24 144/75 (98) 98 01/30/18 09:27 72 30 50 01/30/18 09:00 83 22 138/60 (86) 98 01/30/18 08:30 112 35 128/64 (85) 97 01/30/18 08:00 50 01/30/18 08:00 98.2 83 32 132/51 (78) 96 01/30/18 08:00 82 01/30/18 07:49 Mechanical Ventilator 01/30/18 07:30 80 31 124/57 (79) 96 01/30/18 07:02 84 30 99 Mechanical Ventilator 50 01/30/18 07:00 84 17 103/71 (82) 95 01/30/18 07:00 17 Mechanical Ventilator 50 01/30/18 06:56 78 30 50 01/30/18 06:55 83 30 97 Mechanical Ventilator 50 01/30/18 06:55 50 01/30/18 06:30 83 22 138/65 (89) 94 01/30/18 06:00 78 29 127/58 (81) 97 01/30/18 06:00 29 Mechanical Ventilator 50 01/30/18 05:30 108 20 139/69 (92) 98 01/30/18 05:29 99 31 Mechanical Ventilator 50 01/30/18 05:07 80 31 50 01/30/18 05:00 81 25 132/69 (90) 97 01/30/18 05:00 25 Mechanical Ventilator 50 01/30/18 04:30 84 26 143/71 (95) 89 01/30/18 04:00 Mechanical Ventilator 01/30/18 04:00 20 Mechanical Ventilator 50 01/30/18 04:00 50 01/30/18 04:00 97.5 80 20 141/65 (90) 96 01/30/18 03:30 79 20 136/40 (72) 96 01/30/18 03:27 79 01/30/18 03:14 87 30 50 01/30/18 03:00 20 Mechanical Ventilator 50 01/30/18 03:00 79 20 136/65 (88) 94 01/30/18 02:30 79 20 135/89 (104) 95 01/30/18 02:09 19 Mechanical Ventilator 50 01/30/18 02:00 107 26 124/59 (80) 97 01/30/18 02:00 26 Mechanical Ventilator 50 01/30/18 01:31 77 30 99 Mechanical Ventilator 50 01/30/18 01:30 77 30 143/75 (97) 100 01/30/18 01:21 78 2 99 Endotracheal Tube 50 01/30/18 01:20 80 33 50 01/30/18 01:00 107 30 108/47 (67) 87 01/30/18 01:00 30 Mechanical Ventilator 50 01/30/18 00:30 77 21 113/69 (84) 90 01/30/18 00:00 50 01/30/18 00:00 Mechanical Ventilator 01/30/18 00:00 30 Mechanical Ventilator 50 01/30/18 00:00 98.9 106 24 128/79 (95) 89 01/29/18 23:57 105 01/29/18 23:30 74 23 128/83 (98) 97 01/29/18 23:28 72 32 50 01/29/18 23:00 71 30 100/48 (65) 97 01/29/18 23:00 30 Mechanical Ventilator 50 01/29/18 22:30 99 30 109/58 (75) 96 01/29/18 22:00 73 20 103/86 (92) 96 01/29/18 22:00 20 Mechanical Ventilator 50 01/29/18 21:30 84 20 136/85 (102) 96 01/29/18 21:15 90 32 50 01/29/18 21:09 106 122/49 01/29/18 21:00 109 17 122/49 (73) 96 01/29/18 21:00 28 Mechanical Ventilator 50 01/29/18 20:30 113 28 136/85 (102) 96 01/29/18 20:00 99.6 92 23 142/62 (88) 96 01/29/18 20:00 50 01/29/18 20:00 23 Mechanical Ventilator 50 01/29/18 20:00 Mechanical Ventilator 01/29/18 19:52 91 01/29/18 19:30 112 14 138/53 (81) 96 01/29/18 19:09 102 30 100 Mechanical Ventilator 50 01/29/18 19:05 96 30 50 01/29/18 19:01 79 31 96 Endotracheal Tube 50 01/29/18 19:00 25 Mechanical Ventilator 50 01/29/18 19:00 109 22 138/53 (81) 95 01/29/18 18:30 84 27 150/78 (102) 95 01/29/18 18:00 88 25 134/64 (87) 91 01/29/18 18:00 20 Mechanical Ventilator 50 01/29/18 17:30 80 27 111/46 (67) 96 01/29/18 17:00 23 Mechanical Ventilator 50 01/29/18 17:00 81 30 114/52 (72) 97 01/29/18 16:42 83 30 50 01/29/18 16:42 27 Mechanical Ventilator 50 01/29/18 16:30 79 26 142/48 (79) 94 01/29/18 16:00 80 01/29/18 16:00 50 01/29/18 16:00 99.0 80 26 105/45 (65) 95 01/29/18 16:00 Mechanical Ventilator 01/29/18 15:30 81 21 118/54 (75) 94 01/29/18 15:00 24 Mechanical Ventilator 50 01/29/18 15:00 81 24 97/51 (66) 97 01/29/18 14:45 87 30 50 01/29/18 14:30 78 24 111/51 (71) 95 01/29/18 14:00 24 Mechanical Ventilator 50 01/29/18 14:00 79 24 110/54 (72) 94 01/29/18 13:36 78 30 95 Mechanical Ventilator 60 01/29/18 13:30 80 28 111/49 (69) 96 01/29/18 13:26 77 30 96 Endotracheal Tube 60 01/29/18 13:24 78 30 50 01/29/18 13:00 78 30 103/46 (65) 99 01/29/18 13:00 30 Mechanical Ventilator 50 01/29/18 12:30 77 30 95/46 (62) 99 01/29/18 12:00 Mechanical Ventilator 01/29/18 12:00 99.2 79 30 101/53 (69) 97 01/29/18 12:00 30 Mechanical Ventilator 50 01/29/18 12:00 50 01/29/18 12:00 78 Height (Feet): 5 Height (Inches): 9.00 Weight (Pounds): 151 HEENT: other - orally intubated Respiratory/Chest: lungs clear Cardiovascular: normal rate, other - on ventilator Abdomen: soft, non tender, other - NG tube Extremities: no edema Skin: ulcers Neurologic/Psychiatric: other - sedated on restraint Microbiology Date/Time Source Procedure Growth Status 01/29/18 12:10 Sputum Expectorated Gram Stain - Final Resulted 01/29/18 12:10 Sputum Expectorated Sputum Culture Pending Resulted Laboratory Tests Test 01/30/18 04:40 01/30/18 07:30 White Blood Count 15.6 K/UL (4.8-10.8) H Red Blood Count 3.42 M/UL (4.70-6.10) L Hemoglobin 11.0 G/DL (14.2-18.0) L Hematocrit 33.4 % (42.0-52.0) L Mean Corpuscular Volume 98 FL (80-99) Mean Corpuscular Hemoglobin 32.2 PG (27.0-31.0) H Mean Corpuscular Hemoglobin Concent 32.9 G/DL (32.0-36.0) Red Cell Distribution Width 13.6 % (11.6-14.8) Platelet Count 145 K/UL (150-450) L Mean Platelet Volume 7.6 FL (6.5-10.1) Neutrophils (%) (Auto) % (45.0-75.0) Lymphocytes (%) (Auto) % (20.0-45.0) Monocytes (%) (Auto) % (1.0-10.0) Eosinophils (%) (Auto) % (0.0-3.0) Basophils (%) (Auto) % (0.0-2.0) Differential Total Cells Counted 100 Neutrophils % (Manual) 89 % (45-75) H Lymphocytes % (Manual) 6 % (20-45) L Monocytes % (Manual) 5 % (1-10) Eosinophils % (Manual) 0 % (0-3) Basophils % (Manual) 0 % (0-2) Band Neutrophils 0 % (0-8) Platelet Estimate Decreased L Platelet Morphology Normal Hypochromasia 1+ Anisocytosis 1+ Sodium Level 145 MMOL/L (136-145) Potassium Level 5.8 MMOL/L (3.5-5.1) H Chloride Level 112 MMOL/L (98-107) H Carbon Dioxide Level 26 MMOL/L (21-32) Anion Gap 8 mmol/L (5-15) Blood Urea Nitrogen 41 mg/dL (7-18) H Creatinine 1.0 MG/DL (0.55-1.30) Estimat Glomerular Filtration Rate mL/min (>60) Glucose Level 116 MG/DL (74-106) H Calcium Level 8.2 MG/DL (8.5-10.1) L Phosphorus Level 2.7 MG/DL (2.5-4.9) Magnesium Level 1.9 MG/DL (1.8-2.4) Total Bilirubin 1.1 MG/DL (0.2-1.0) H Direct Bilirubin 0.5 MG/DL (0.0-0.3) H Aspartate Amino Transf (AST/SGOT) 22 U/L (15-37) Alanine Aminotransferase (ALT/SGPT) 17 U/L (12-78) Alkaline Phosphatase 87 U/L (46-116) Pro-B-Type Natriuretic Peptide 4754 pg/mL (0-125) H Total Protein 6.3 G/DL (6.4-8.2) L Albumin 1.6 G/DL (3.4-5.0) L Globulin 4.7 g/dL Albumin/Globulin Ratio 0.3 (1.0-2.7) L Reticulocyte Count 1.8 % (0.0-2.0) Sickle Cell Screen Pending Prothrombin Time 12.4 SEC (9.30-11.50) H Prothromb Time International Ratio 1.2 (0.9-1.1) H PTT Mixing Study Pending APTT Patient/Control Mix Pending Mix PTT Incubation Time Pending Mix PTT Normal/Saline 1:1 Immediate Pending Thrombin Time Normal Plasma Pending Iron Level 22 ug/dL (50-175) L Total Iron Binding Capacity 243 ug/dL (250-450) L Percent Iron Saturation 9 % (15-50) L Unsaturated Iron Binding 221 ug/dL (112-346) Ferritin 1660 NG/ML (8-388) H Lactate Dehydrogenase 323 U/L (81-234) H Carcinoembryonic Antigen Pending Hepatitis A IgM Antibody Pending Hepatitis B Surface Antigen Pending Hepatitis B Core IgM Antibody Pending Hepatitis C Antibody Pending HIV (1&2) Antibody Rapid Negative (NEGATIVE) Current Medications Medications (Trade) Dose Ordered Sig/Chaka Route PRN Reason Start Time Stop Time Status Last Admin Dose Admin Acetaminophen (Tylenol) 650 mg PRN PRN RECTAL Prn Headache/Temp > 101 01/26/18 22:15 02/23/18 22:14 01/28/18 20:35 Albuterol/ Ipratropium (Albuterol/ Ipratropium) 3 ml Q4H PRN HHN Shortness of Breath 01/26/18 10:00 01/30/18 13:59 Albuterol/ Ipratropium (Albuterol/ Ipratropium) 3 ml Q6HRT HHN 01/26/18 13:00 01/30/18 18:59 01/30/18 07:01 Azithromycin 250 mg/Dextrose 275 ml @ 275 mls/hr Q24HRS IV 01/26/18 20:00 02/01/18 20:59 01/29/18 19:39 Cefepime HCl 1 gm/ Dextrose 55 ml @ 110 mls/hr Q12HR@1000,2200 IVPB 01/30/18 10:00 02/06/18 09:59 01/30/18 09:57 Dextrose/Sodium Chloride 1,000 ml @ 50 mls/hr Q20H IV 01/29/18 10:15 02/28/18 10:14 01/30/18 06:12 Diphenhydramine HCl (Benadryl) 25 mg Q6H PRN IVP Itching 01/26/18 22:15 02/25/18 22:14 Famotidine (Pepcid I.v.) 20 mg Q12HR IVP 01/26/18 10:00 02/24/18 09:59 01/30/18 09:58 Fentanyl Citrate 1000 mcg/Sodium Chloride 100 ml @ 0 mls/hr Q24H IV 01/26/18 10:30 02/02/18 10:29 01/30/18 02:09 Haloperidol Lactate (Haldol) 5 mg Q6H PRN IM Agitation 01/27/18 13:00 02/26/18 12:59 Heparin Sodium (Porcine) (Heparin 5000 units/ml) 5,000 units EVERY 12 HOURS SUBQ 01/27/18 21:00 02/26/18 20:59 01/30/18 10:00 Metoprolol Tartrate (Lopressor) 25 mg Q12HR ORAL 01/26/18 21:00 02/25/18 20:59 01/30/18 09:57 Midazolam HCl (Versed 2mg/2ml vial) 2 mg EVERY 4 HOURS PRN IVP For Anxiety 01/26/18 10:00 02/25/18 09:59 Olanzapine (ZyPREXA) 2.5 mg BEDTIME PRN ORAL agitation 01/26/18 21:00 02/25/18 20:59 Ondansetron HCl (Zofran) 4 mg Q6H PRN IVP Nausea & Vomiting 01/26/18 22:15 02/25/18 22:14 Vancomycin HCl (Vanco rx to dose) 1 ea DAILY PRN MISC Per rx protocol 01/26/18 09:45 02/25/18 09:44 Vancomycin HCl 1 gm/Dextrose 275 ml @ 183.708 mls/hr Q12H IVPB 01/26/18 11:00 02/01/18 23:59 01/30/18 11:35 Ha Tello MD Jan 30, 2018 11:42
--- NOTE | 2018-01-30 11:50 | Diagnostic Imaging Report ---
Indication: Abdominal pain Comparison: 01/26/2018 Single view of the abdomen obtained Findings: Bowel gas pattern is nonspecific. No mass, ectopic calcifications, or abnormal gas collections are identified. The bones are unremarkable. NG tube remains in good position. There is no significant change. Impression: No acute findings
[2018-01-30] MEDS ORDERED: Sodium Polystyrene Sulfonate 15gm Powder GT SCH (13:30)
--- NOTE | 2018-01-30 13:33 | General Progress Note ---
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 (2) UTI (urinary tract infection) ICD Codes: N39.0 - Urinary tract infection, site not specified SNOMED: 81608845, [id number] Qualifiers: Qualified Codes: N39.0 - Urinary tract infection, site not specified (3) Severe sepsis ICD Codes: A41.9 - Sepsis, unspecified organism; R65.20 - Severe sepsis without septic shock SNOMED: 46321006 Status: stable, progressing Assessment/Plan cont fentanyl the family should make decisions the pt lacks capacity haldol prn less sedating . Subjective Neurologic/Psychiatric: Reports: anxiety Allergies: Coded Allergies: No Known Allergies (Unverified , 01/24/18) Subjective the pt is on fentanyl for agitation. the dose has been tapered. the pt has agitation at times. waxing and waning Objective Last 24 Hour Vital Signs Date Time Temp Pulse Resp B/P (MAP) Pulse Ox O2 Delivery O2 Flow Rate FiO2 01/30/18 12:51 72 32 99 Mechanical Ventilator 50 01/30/18 12:50 71 32 50 01/30/18 12:46 69 32 98 Mechanical Ventilator 50 01/30/18 12:46 50 01/30/18 12:36 31 Endotracheal Tube 50 01/30/18 11:00 70 29 148/66 (93) 98 01/30/18 10:42 70 32 50 01/30/18 10:00 83 25 129/57 (81) 98 01/30/18 09:57 80 138/60 01/30/18 09:30 82 24 144/75 (98) 98 01/30/18 09:27 72 30 50 01/30/18 09:00 83 22 138/60 (86) 98 01/30/18 08:30 112 35 128/64 (85) 97 01/30/18 08:00 50 01/30/18 08:00 98.2 83 32 132/51 (78) 96 01/30/18 08:00 82 01/30/18 07:49 Mechanical Ventilator 01/30/18 07:30 80 31 124/57 (79) 96 01/30/18 07:02 84 30 99 Mechanical Ventilator 50 01/30/18 07:00 84 17 103/71 (82) 95 01/30/18 07:00 17 Mechanical Ventilator 50 01/30/18 06:56 78 30 50 1210/18 06:55 83 30 97 Mechanical Ventilator 50 01/30/18 06:55 50 01/30/18 06:30 83 22 138/65 (89) 94 01/30/18 06:00 78 29 127/58 (81) 97 01/30/18 06:00 29 Mechanical Ventilator 50 01/30/18 05:30 108 20 139/69 (92) 98 01/30/18 05:29 99 31 Mechanical Ventilator 50 01/30/18 05:07 80 31 50 01/30/18 05:00 81 25 132/69 (90) 97 01/30/18 05:00 25 Mechanical Ventilator 50 01/30/18 04:30 84 26 143/71 (95) 89 01/30/18 04:00 Mechanical Ventilator 01/30/18 04:00 20 Mechanical Ventilator 50 01/30/18 04:00 50 01/30/18 04:00 97.5 80 20 141/65 (90) 96 01/30/18 03:30 79 20 136/40 (72) 96 01/30/18 03:27 79 01/30/18 03:14 87 30 50 01/30/18 03:00 20 Mechanical Ventilator 50 01/30/18 03:00 79 20 136/65 (88) 94 01/30/18 02:30 79 20 135/89 (104) 95 01/30/18 02:09 19 Mechanical Ventilator 50 01/30/18 02:00 107 26 124/59 (80) 97 01/30/18 02:00 26 Mechanical Ventilator 50 01/30/18 01:31 77 30 99 Mechanical Ventilator 50 01/30/18 01:30 77 30 143/75 (97) 100 01/30/18 01:21 78 2 99 Endotracheal Tube 50 01/30/18 01:20 80 33 50 01/30/18 01:00 107 30 108/47 (67) 87 01/30/18 01:00 30 Mechanical Ventilator 50 01/30/18 00:30 77 21 113/69 (84) 90 01/30/18 00:00 50 01/30/18 00:00 Mechanical Ventilator 01/30/18 00:00 30 Mechanical Ventilator 50 01/30/18 00:00 98.9 106 24 128/79 (95) 89 01/29/18 23:57 105 01/29/18 23:30 74 23 128/83 (98) 97 01/29/18 23:28 72 32 50 01/29/18 23:00 71 30 100/48 (65) 97 01/29/18 23:00 30 Mechanical Ventilator 50 01/29/18 22:30 99 30 109/58 (75) 96 01/29/18 22:00 73 20 103/86 (92) 96 01/29/18 22:00 20 Mechanical Ventilator 50 01/29/18 21:30 84 20 136/85 (102) 96 01/29/18 21:15 90 32 50 01/29/18 21:09 106 122/49 01/29/18 21:00 109 17 122/49 (73) 96 01/29/18 21:00 28 Mechanical Ventilator 50 01/29/18 20:30 113 28 136/85 (102) 96 01/29/18 20:00 99.6 92 23 142/62 (88) 96 01/29/18 20:00 50 01/29/18 20:00 23 Mechanical Ventilator 50 01/29/18 20:00 Mechanical Ventilator 01/29/18 19:52 91 01/29/18 19:30 112 14 138/53 (81) 96 01/29/18 19:09 102 30 100 Mechanical Ventilator 50 01/29/18 19:05 96 30 50 01/29/18 19:01 79 31 96 Endotracheal Tube 50 01/29/18 19:00 25 Mechanical Ventilator 50 01/29/18 19:00 109 22 138/53 (81) 95 01/29/18 18:30 84 27 150/78 (102) 95 01/29/18 18:00 88 25 134/64 (87) 91 01/29/18 18:00 20 Mechanical Ventilator 50 01/29/18 17:30 80 27 111/46 (67) 96 01/29/18 17:00 23 Mechanical Ventilator 50 01/29/18 17:00 81 30 114/52 (72) 97 01/29/18 16:42 83 30 50 01/29/18 16:42 27 Mechanical Ventilator 50 01/29/18 16:30 79 26 142/48 (79) 94 01/29/18 16:00 80 01/29/18 16:00 50 01/29/18 16:00 99.0 80 26 105/45 (65) 95 01/29/18 16:00 Mechanical Ventilator 01/29/18 15:30 81 21 118/54 (75) 94 01/29/18 15:00 24 Mechanical Ventilator 50 01/29/18 15:00 81 24 97/51 (66) 97 01/29/18 14:45 87 30 50 01/29/18 14:30 78 24 111/51 (71) 95 01/29/18 14:00 24 Mechanical Ventilator 50 01/29/18 14:00 79 24 110/54 (72) 94 01/29/18 13:36 78 30 95 Mechanical Ventilator 60 Intake and Output 01/29/18 01/30/18 19:00 07:00 Intake Total 1741.416 ml 1305.6 ml Output Total 745 ml 740 ml Balance 996.416 ml 565.6 ml Intake Oral 0 ml 0 ml IV Total 991.416 ml 1265.6 ml Tube Feeding 550 ml Other 200 ml 40 ml Output Urine Total 745 ml 740 ml Laboratory Tests 01/30/18 04:40: White Blood Count 15.6H, Red Blood Count 3.42L, Hemoglobin 11.0L, Hematocrit 33.4L, Mean Corpuscular Volume 98, Mean Corpuscular Hemoglobin 32.2H, Mean Corpuscular Hemoglobin Concent 32.9, Red Cell Distribution Width 13.6, Platelet Count 145L, Mean Platelet Volume 7.6, Neutrophils (%) (Auto) , Lymphocytes (%) ( Auto) , Monocytes (%) (Auto) , Eosinophils (%) (Auto) , Basophils (%) (Auto) , Differential Total Cells Counted 100, Neutrophils % (Manual) 89H, Lymphocytes % (Manual) 6L, Monocytes % (Manual) 5, Eosinophils % (Manual) 0, Basophils % ( Manual) 0, Band Neutrophils 0, Platelet Estimate DecreasedL, Platelet Morphology Normal, Hypochromasia 1+, Anisocytosis 1+, Sodium Level 145, Potassium Level 5.8H, Chloride Level 112H, Carbon Dioxide Level 26, Anion Gap 8 , Blood Urea Nitrogen 41H, Creatinine 1.0, Estimat Glomerular Filtration Rate , Glucose Level 116H, Calcium Level 8.2L, Phosphorus Level 2.7, Magnesium Level 1.9, Total Bilirubin 1.1H, Direct Bilirubin 0.5H, Aspartate Amino Transf (AST/ SGOT) 22, Alanine Aminotransferase (ALT/SGPT) 17, Alkaline Phosphatase 87, Pro-B -Type Natriuretic Peptide 4754H, Total Protein 6.3L, Albumin 1.6L, Globulin 4.7 , Albumin/Globulin Ratio 0.3L 01/30/18 07:30: Reticulocyte Count 1.8, Sickle Cell Screen [Pending], Prothrombin Time 12.4H, Prothromb Time International Ratio 1.2H, PTT Mixing Study [Pending], APTT Patient/Control Mix [Pending], Mix PTT Incubation Time [Pending], Mix PTT Normal /Saline 1:1 Immediate [Pending], Thrombin Time Normal Plasma [Pending], Iron Level 22L, Total Iron Binding Capacity 243L, Percent Iron Saturation 9L, Unsaturated Iron Binding 221, Ferritin 1660H, Lactate Dehydrogenase 323H, Carcinoembryonic Antigen [Pending], Hepatitis A IgM Antibody [Pending], Hepatitis B Surface Antigen [Pending], Hepatitis B Core IgM Antibody [Pending], Hepatitis C Antibody [Pending], HIV (1&2) Antibody Rapid Negative Height (Feet): 5 Height (Inches): 9.00 Weight (Pounds): 153 General Appearance: alert, confused, agitated MIPS Medication Reconciliation Is this a Psycho/Diag encounte: Collin Perry MD Jan 30, 2018 13:33
--- NOTE | 2018-01-30 13:51 | GI Initial Consult Note ---
History of Present Illness General Date patient seen: Jan 30, 2018 Time patient seen: 13:43 Reason for Hospitalization: Generalized Weakness Referring physician: JAMESON SLOAN Reason for Consultation: ANEMIA Present Illness HPI The patient does have dementia. History is obtained from the [id number] at the bedside. The patient has been having frequent falls and is admitted for urinary tract infection, sepsis, pneumonia, dehydration, and hypoxic on BiPAP, was admitted to ICU. Again, he is a poor historian due to dementia. According to the [id number], he has been having shortness of breath, productive cough, and frequent falls. GI consulted for anemia, PEG evaluation. ROS limited, patient intubated in ICU with history of organic brain injury. Pt seen, NAD on mechanical ventilator, NGT present. Labs reviewed, leukocytosis, anemia, electrolyte imbalance, iron deficiency, folate deficiency. Unknown history of endoscopy / colonoscopy. Home Meds Reported Medications [Cholesterol Pill] No Conflict Check 01/24/18 Med list reviewed/reconciled: Yes Allergies: Coded Allergies: No Known Allergies (Unverified , 01/24/18) Patient History Limited by: medical condition History Provided By: Medical Record [facility] Narrative History of back surgery, history of alcohol abuse, history of smoking, organic brain syndrome, lower extremity weakness, ataxia, and hyperlipidemia. Review of Systems All Other Systems: limited Physical Exam Vital Signs Date Time Temp Pulse Resp B/P (MAP) Pulse Ox O2 Delivery O2 Flow Rate FiO2 01/26/18 07:13 64 13 90 Bi-pap 100 01/26/18 07:20 15.0 01/26/18 08:00 157/63 (94) 01/26/18 09:00 98.8 Sp02 EP Interpretation: reviewed, normal Labs Laboratory Tests Test 01/30/18 04:40 01/30/18 07:30 White Blood Count 15.6 K/UL (4.8-10.8) H Red Blood Count 3.42 M/UL (4.70-6.10) L Hemoglobin 11.0 G/DL (14.2-18.0) L Hematocrit 33.4 % (42.0-52.0) L Mean Corpuscular Volume 98 FL (80-99) Mean Corpuscular Hemoglobin 32.2 PG (27.0-31.0) H Mean Corpuscular Hemoglobin Concent 32.9 G/DL (32.0-36.0) Red Cell Distribution Width 13.6 % (11.6-14.8) Platelet Count 145 K/UL (150-450) L Mean Platelet Volume 7.6 FL (6.5-10.1) Neutrophils (%) (Auto) % (45.0-75.0) Lymphocytes (%) (Auto) % (20.0-45.0) Monocytes (%) (Auto) % (1.0-10.0) Eosinophils (%) (Auto) % (0.0-3.0) Basophils (%) (Auto) % (0.0-2.0) Differential Total Cells Counted 100 Neutrophils % (Manual) 89 % (45-75) H Lymphocytes % (Manual) 6 % (20-45) L Monocytes % (Manual) 5 % (1-10) Eosinophils % (Manual) 0 % (0-3) Basophils % (Manual) 0 % (0-2) Band Neutrophils 0 % (0-8) Platelet Estimate Decreased L Platelet Morphology Normal Hypochromasia 1+ Anisocytosis 1+ Sodium Level 145 MMOL/L (136-145) Potassium Level 5.8 MMOL/L (3.5-5.1) H Chloride Level 112 MMOL/L (98-107) H Carbon Dioxide Level 26 MMOL/L (21-32) Anion Gap 8 mmol/L (5-15) Blood Urea Nitrogen 41 mg/dL (7-18) H Creatinine 1.0 MG/DL (0.55-1.30) Estimat Glomerular Filtration Rate mL/min (>60) Glucose Level 116 MG/DL (74-106) H Calcium Level 8.2 MG/DL (8.5-10.1) L Phosphorus Level 2.7 MG/DL (2.5-4.9) Magnesium Level 1.9 MG/DL (1.8-2.4) Total Bilirubin 1.1 MG/DL (0.2-1.0) H Direct Bilirubin 0.5 MG/DL (0.0-0.3) H Aspartate Amino Transf (AST/SGOT) 22 U/L (15-37) Alanine Aminotransferase (ALT/SGPT) 17 U/L (12-78) Alkaline Phosphatase 87 U/L (46-116) Pro-B-Type Natriuretic Peptide 4754 pg/mL (0-125) H Total Protein 6.3 G/DL (6.4-8.2) L Albumin 1.6 G/DL (3.4-5.0) L Globulin 4.7 g/dL Albumin/Globulin Ratio 0.3 (1.0-2.7) L Reticulocyte Count 1.8 % (0.0-2.0) Sickle Cell Screen Pending Prothrombin Time 12.4 SEC (9.30-11.50) H Prothromb Time International Ratio 1.2 (0.9-1.1) H PTT Mixing Study Pending APTT Patient/Control Mix Pending Mix PTT Incubation Time Pending Mix PTT Normal/Saline 1:1 Immediate Pending Thrombin Time Normal Plasma Pending Iron Level 22 ug/dL (50-175) L Total Iron Binding Capacity 243 ug/dL (250-450) L Percent Iron Saturation 9 % (15-50) L Unsaturated Iron Binding 221 ug/dL (112-346) Ferritin 1660 NG/ML (8-388) H Lactate Dehydrogenase 323 U/L (81-234) H Carcinoembryonic Antigen Pending Hepatitis A IgM Antibody Pending Hepatitis B Surface Antigen Pending Hepatitis B Core IgM Antibody Pending Hepatitis C Antibody Pending HIV (1&2) Antibody Rapid Negative (NEGATIVE) General Appearance: no apparent distress Neck: supple Respiratory: normal breath sounds, no respiratory distress Cardiovascular: normal rate, other - ET tube, mech vent Gastrointestinal: normal inspection, non tender, soft, normal bowel sounds, non -distended, other - NGT Rectal: deferred Genitourinary: deferred Musculoskeletal: normal inspection, back normal Neurologic: normal inspection, alert Skin: normal inspection, normal color, no rash, warm/dry, palpation normal, well hydrated Lymphatic: normal inspection, no adenopathy Current Medications Current Medications Medications (Trade) Dose Ordered Sig/Chaka Route PRN Reason Start Time Stop Time Status Last Admin Dose Admin Acetaminophen (Tylenol) 650 mg PRN PRN RECTAL Prn Headache/Temp > 101 01/26/18 22:15 02/23/18 22:14 01/28/18 20:35 Albuterol/ Ipratropium (Albuterol/ Ipratropium) 3 ml Q4H PRN HHN Shortness of Breath 01/26/18 10:00 01/30/18 13:59 Albuterol/ Ipratropium (Albuterol/ Ipratropium) 3 ml Q6HRT HHN 01/26/18 13:00 01/30/18 18:59 01/30/18 12:50 Azithromycin 250 mg/Dextrose 275 ml @ 275 mls/hr Q24HRS IV 01/26/18 20:00 02/01/18 20:59 01/29/18 19:39 Cefepime HCl 1 gm/ Dextrose 55 ml @ 110 mls/hr Q12HR@1000,2200 IVPB 01/30/18 10:00 02/06/18 09:59 01/30/18 09:57 Dextrose/Sodium Chloride 1,000 ml @ 50 mls/hr Q20H IV 01/29/18 10:15 02/28/18 10:14 01/30/18 06:12 Diphenhydramine HCl (Benadryl) 25 mg Q6H PRN IVP Itching 01/26/18 22:15 02/25/18 22:14 Famotidine (Pepcid I.v.) 20 mg Q12HR IVP 01/26/18 10:00 02/24/18 09:59 01/30/18 09:58 Fentanyl Citrate 1000 mcg/Sodium Chloride 100 ml @ 0 mls/hr Q24H IV 01/26/18 10:30 02/02/18 10:29 01/30/18 12:36 Haloperidol Lactate (Haldol) 5 mg Q6H PRN IM Agitation 01/27/18 13:00 02/26/18 12:59 Heparin Sodium (Porcine) (Heparin 5000 units/ml) 5,000 units EVERY 12 HOURS SUBQ 01/27/18 21:00 02/26/18 20:59 01/30/18 10:00 Metoprolol Tartrate (Lopressor) 25 mg Q12HR ORAL 01/26/18 21:00 02/25/18 20:59 01/30/18 09:57 Midazolam HCl (Versed 2mg/2ml vial) 2 mg EVERY 4 HOURS PRN IVP For Anxiety 01/26/18 10:00 02/25/18 09:59 Olanzapine (ZyPREXA) 2.5 mg BEDTIME PRN ORAL agitation 01/26/18 21:00 02/25/18 20:59 Ondansetron HCl (Zofran) 4 mg Q6H PRN IVP Nausea & Vomiting 01/26/18 22:15 02/25/18 22:14 Sodium Polystyrene Sulfonate (Kayexalate) 30 gm ONCE GT 01/30/18 13:30 01/30/18 14:30 Vancomycin HCl (Vanco rx to dose) 1 ea DAILY PRN MISC Per rx protocol 01/26/18 09:45 02/25/18 09:44 Vancomycin HCl 1 gm/Dextrose 275 ml @ 183.708 mls/hr Q12H IVPB 01/26/18 11:00 02/01/18 23:59 01/30/18 11:35 GI: Plan Problems: (1) Gastroparesis (2) Abnormal LFTs Plan anemia work up reviewed >> folate and iron deficiency NGT present recent KUB >> no acute findings pt has ET tube on mech vent start NGTFs per RD to goal, PEG if necessary low dose erythromycin if needed for gastroparesis OB stool r/o GI bleed monitor H&H, prn transfusions bowel regime ppi folate fu labs Discussed with Dr. Salgado. Thank you for this patient referral, we will follow. The patient was seen and examined at bedside and all new and available data was reviewed in the patients chart. I agree with the above findings, impression and plan. (Patient seen earlier today. Signature stamp does not reflect patient encounter time.). - MD Peggy HardenD[facility] Jan 30, 2018 13:51
--- NOTE | 2018-01-30 14:09 | Pulmonolgy Critical Care Note ---
Critical Care - Asmt/Plan Problems: (1) Pulmonary fibrosis (2) Multifocal pneumonia (3) Respiratory disorder with ventilator dependence (4) Lactic acid acidosis (5) Abnormal LFTs (6) OLEG (acute kidney injury) (7) SIRS (systemic inflammatory response syndrome) (8) UTI (urinary tract infection) Assessment/Plan: ASSESSMENT: The patient is a 77-year-old male, current daily smoker with history of hypertension, back pain, lack of health maintenance, presenting with respiratory illness, bilateral pneumonia, lactic acidosis, abnormal kidney function and renal function likely OLEG, and shock liver. 01/26: Prog hypoxemia, inc WOB, tx'd to ICU, intubated 01/27: Gas exchange better, trops downtrending, LA resolved 01/30: Oxygenation stable, stable on vent PROBLEM LIST: 1. Bilateral parenchymal infiltrates, multilobar pneumonia on top of underlying fibrotic lung disease 2. VDRF 3. Metabolic & respiratory acidosis 4. Likely underlying pulmonary fibrosis and COPD 5. NSTEMI, likely demand ischemia 6. Lactic acidosis - RESOLVED 7. Abnormal creatinine, likely acute kidney injury - IMPROVED 8. Abnormal liver function tests - IMPROVED 9. SIRS 10. History of hypertension. 11. PNEUMONIA 12. Constipation TREATMENT PLAN: ABG Continue ventilatory support/settings reviewed, monitor gas exchange Titrate FiO2 to 40, start decreasing PEEP HOLD SEDATION @ 6 AM TOMORROW for SBT SBT in am RTC and PRN DUOnebs Cefepime & Azithro (D6), Vanco (D5) per ID, F/U Cx's Resume TF's, monitor residuals ICU sedation: Fentanyl gtt for RASS - 2, Versed 2 mg IV q4 PRN F/U cardiology recs Monitor volumes and renal function, consider D/C IVF Wound care GI recs, bowel regimen Discuss GOC, FC Px: Hep SQ, H2B D/W family, RN, RT and team CCT 35 Critical Care - Objective Last 24 Hour Vital Signs Date Time Temp Pulse Resp B/P (MAP) Pulse Ox O2 Delivery O2 Flow Rate FiO2 01/30/18 12:51 72 32 99 Mechanical Ventilator 50 01/30/18 12:50 71 32 50 01/30/18 12:46 69 32 98 Mechanical Ventilator 50 01/30/18 12:46 50 01/30/18 12:36 31 Endotracheal Tube 50 01/30/18 11:00 70 29 148/66 (93) 98 01/30/18 10:42 70 32 50 01/30/18 10:00 83 25 129/57 (81) 98 01/30/18 09:57 80 138/60 01/30/18 09:30 82 24 144/75 (98) 98 01/30/18 09:27 72 30 50 01/30/18 09:00 83 22 138/60 (86) 98 01/30/18 08:30 112 35 128/64 (85) 97 01/30/18 08:00 50 01/30/18 08:00 98.2 83 32 132/51 (78) 96 01/30/18 08:00 82 01/30/18 07:49 Mechanical Ventilator 01/30/18 07:30 80 31 124/57 (79) 96 01/30/18 07:02 84 30 99 Mechanical Ventilator 50 01/30/18 07:00 84 17 103/71 (82) 95 01/30/18 07:00 17 Mechanical Ventilator 50 01/30/18 06:56 78 30 50 01/30/18 06:55 83 30 97 Mechanical Ventilator 50 01/30/18 06:55 50 01/30/18 06:30 83 22 138/65 (89) 94 01/30/18 06:00 78 29 127/58 (81) 97 01/30/18 06:00 29 Mechanical Ventilator 50 01/30/18 05:30 108 20 139/69 (92) 98 01/30/18 05:29 99 31 Mechanical Ventilator 50 01/30/18 05:07 80 31 50 01/30/18 05:00 81 25 132/69 (90) 97 01/30/18 05:00 25 Mechanical Ventilator 50 01/30/18 04:30 84 26 143/71 (95) 89 01/30/18 04:00 Mechanical Ventilator 01/30/18 04:00 20 Mechanical Ventilator 50 01/30/18 04:00 50 01/30/18 04:00 97.5 80 20 141/65 (90) 96 01/30/18 03:30 79 20 136/40 (72) 96 01/30/18 03:27 79 01/30/18 03:14 87 30 50 01/30/18 03:00 20 Mechanical Ventilator 50 01/30/18 03:00 79 20 136/65 (88) 94 01/30/18 02:30 79 20 135/89 (104) 95 01/30/18 02:09 19 Mechanical Ventilator 50 01/30/18 02:00 107 26 124/59 (80) 97 01/30/18 02:00 26 Mechanical Ventilator 50 01/30/18 01:31 77 30 99 Mechanical Ventilator 50 01/30/18 01:30 77 30 143/75 (97) 100 01/30/18 01:21 78 2 99 Endotracheal Tube 50 01/30/18 01:20 80 33 50 01/30/18 01:00 107 30 108/47 (67) 87 01/30/18 01:00 30 Mechanical Ventilator 50 01/30/18 00:30 77 21 113/69 (84) 90 01/30/18 00:00 50 01/30/18 00:00 Mechanical Ventilator 01/30/18 00:00 30 Mechanical Ventilator 50 01/30/18 00:00 98.9 106 24 128/79 (95) 89 01/29/18 23:57 105 01/29/18 23:30 74 23 128/83 (98) 97 01/29/18 23:28 72 32 50 01/29/18 23:00 71 30 100/48 (65) 97 01/29/18 23:00 30 Mechanical Ventilator 50 01/29/18 22:30 99 30 109/58 (75) 96 01/29/18 22:00 73 20 103/86 (92) 96 01/29/18 22:00 20 Mechanical Ventilator 50 01/29/18 21:30 84 20 136/85 (102) 96 01/29/18 21:15 90 32 50 01/29/18 21:09 106 122/49 01/29/18 21:00 109 17 122/49 (73) 96 01/29/18 21:00 28 Mechanical Ventilator 50 01/29/18 20:30 113 28 136/85 (102) 96 01/29/18 20:00 99.6 92 23 142/62 (88) 96 01/29/18 20:00 50 01/29/18 20:00 23 Mechanical Ventilator 50 01/29/18 20:00 Mechanical Ventilator 01/29/18 19:52 91 01/29/18 19:30 112 14 138/53 (81) 96 01/29/18 19:09 102 30 100 Mechanical Ventilator 50 01/29/18 19:05 96 30 50 01/29/18 19:01 79 31 96 Endotracheal Tube 50 01/29/18 19:00 25 Mechanical Ventilator 50 01/29/18 19:00 109 22 138/53 (81) 95 01/29/18 18:30 84 27 150/78 (102) 95 01/29/18 18:00 88 25 134/64 (87) 91 01/29/18 18:00 20 Mechanical Ventilator 50 01/29/18 17:30 80 27 111/46 (67) 96 01/29/18 17:00 23 Mechanical Ventilator 50 01/29/18 17:00 81 30 114/52 (72) 97 01/29/18 16:42 83 30 50 01/29/18 16:42 27 Mechanical Ventilator 50 01/29/18 16:30 79 26 142/48 (79) 94 01/29/18 16:00 80 01/29/18 16:00 50 01/29/18 16:00 99.0 80 26 105/45 (65) 95 01/29/18 16:00 Mechanical Ventilator 01/29/18 15:30 81 21 118/54 (75) 94 01/29/18 15:00 24 Mechanical Ventilator 50 01/29/18 15:00 81 24 97/51 (66) 97 01/29/18 14:45 87 30 50 01/29/18 14:30 78 24 111/51 (71) 95 Status: somnolent, other - intubated Condition: critical HEENT: atraumatic, normocephalic Lungs: rhonchi Heart: HR/BP stable Abdomen: soft, non-tender, active bowel sounds Extremities: other - 1+ edema Micro: Microbiology Date/Time Source Procedure Growth Status 01/29/18 12:10 Sputum Expectorated Gram Stain - Final Resulted 01/29/18 12:10 Sputum Expectorated Sputum Culture Pending Resulted Critical Care - Subjective ROS Limited/Unobtainable: Yes ICU Day: 5 Intubation Day: 5 Interval Events: Seen by GI for possible PEG? FiO2 50 PEEP 8 TF's held 2/2 no BM Condition: critical IV Access: peripheral EKG Rhythm: Sinus Rhythm FI02: 50 Vent Support Breath Rate: 30 Vent Support Mode: AC Vent Tidal Volume: 600 Sputum Amount: Small PEEP: 8.0 PIP: 43 Secretions: small thick Fluids: D51/2NS@50 Drips: Fent for RASS -2 Tube Feeding Amount: 50 Residuals: 0 I&O: Intake and Output 01/29/18 01/30/18 19:00 07:00 Intake Total 1741.416 ml 1305.6 ml Output Total 745 ml 740 ml Balance 996.416 ml 565.6 ml Intake Oral 0 ml 0 ml IV Total 991.416 ml 1265.6 ml Tube Feeding 550 ml Other 200 ml 40 ml Output Urine Total 745 ml 740 ml Subjective: IRENE CXR: Dec b opacities ET-Tube: 7.5 ET Position: 23 Labs: Laboratory Tests Test 01/30/18 04:40 01/30/18 07:30 White Blood Count 15.6 K/UL (4.8-10.8) H Red Blood Count 3.42 M/UL (4.70-6.10) L Hemoglobin 11.0 G/DL (14.2-18.0) L Hematocrit 33.4 % (42.0-52.0) L Mean Corpuscular Volume 98 FL (80-99) Mean Corpuscular Hemoglobin 32.2 PG (27.0-31.0) H Mean Corpuscular Hemoglobin Concent 32.9 G/DL (32.0-36.0) Red Cell Distribution Width 13.6 % (11.6-14.8) Platelet Count 145 K/UL (150-450) L Mean Platelet Volume 7.6 FL (6.5-10.1) Neutrophils (%) (Auto) % (45.0-75.0) Lymphocytes (%) (Auto) % (20.0-45.0) Monocytes (%) (Auto) % (1.0-10.0) Eosinophils (%) (Auto) % (0.0-3.0) Basophils (%) (Auto) % (0.0-2.0) Differential Total Cells Counted 100 Neutrophils % (Manual) 89 % (45-75) H Lymphocytes % (Manual) 6 % (20-45) L Monocytes % (Manual) 5 % (1-10) Eosinophils % (Manual) 0 % (0-3) Basophils % (Manual) 0 % (0-2) Band Neutrophils 0 % (0-8) Platelet Estimate Decreased L Platelet Morphology Normal Hypochromasia 1+ Anisocytosis 1+ Sodium Level 145 MMOL/L (136-145) Potassium Level 5.8 MMOL/L (3.5-5.1) H Chloride Level 112 MMOL/L (98-107) H Carbon Dioxide Level 26 MMOL/L (21-32) Anion Gap 8 mmol/L (5-15) Blood Urea Nitrogen 41 mg/dL (7-18) H Creatinine 1.0 MG/DL (0.55-1.30) Estimat Glomerular Filtration Rate mL/min (>60) Glucose Level 116 MG/DL (74-106) H Calcium Level 8.2 MG/DL (8.5-10.1) L Phosphorus Level 2.7 MG/DL (2.5-4.9) Magnesium Level 1.9 MG/DL (1.8-2.4) Total Bilirubin 1.1 MG/DL (0.2-1.0) H Direct Bilirubin 0.5 MG/DL (0.0-0.3) H Aspartate Amino Transf (AST/SGOT) 22 U/L (15-37) Alanine Aminotransferase (ALT/SGPT) 17 U/L (12-78) Alkaline Phosphatase 87 U/L (46-116) Pro-B-Type Natriuretic Peptide 4754 pg/mL (0-125) H Total Protein 6.3 G/DL (6.4-8.2) L Albumin 1.6 G/DL (3.4-5.0) L Globulin 4.7 g/dL Albumin/Globulin Ratio 0.3 (1.0-2.7) L Reticulocyte Count 1.8 % (0.0-2.0) Sickle Cell Screen Pending Prothrombin Time 12.4 SEC (9.30-11.50) H Prothromb Time International Ratio 1.2 (0.9-1.1) H PTT Mixing Study Pending APTT Patient/Control Mix Pending Mix PTT Incubation Time Pending Mix PTT Normal/Saline 1:1 Immediate Pending Thrombin Time Normal Plasma Pending Iron Level 22 ug/dL (50-175) L Total Iron Binding Capacity 243 ug/dL (250-450) L Percent Iron Saturation 9 % (15-50) L Unsaturated Iron Binding 221 ug/dL (112-346) Ferritin 1660 NG/ML (8-388) H Lactate Dehydrogenase 323 U/L (81-234) H Carcinoembryonic Antigen Pending Hepatitis A IgM Antibody Pending Hepatitis B Surface Antigen Pending Hepatitis B Core IgM Antibody Pending Hepatitis C Antibody Pending HIV (1&2) Antibody Rapid Negative (NEGATIVE) Lev Johnson MD Jan 30, 2018 14:09
--- NOTE | 2018-01-30 15:33 | General Surgery Progress Note ---
General Surgery-Progress Note Subjective Additional Comments leukocytosis. still in ICU. still critical and needs close monitoring and care Objective Last 24 Hour Vital Signs Date Time Temp Pulse Resp B/P (MAP) Pulse Ox O2 Delivery O2 Flow Rate FiO2 01/30/18 15:00 81 23 117/52 (73) 98 01/30/18 14:36 73 30 50 01/30/18 14:30 72 20 117/52 (73) 100 01/30/18 14:00 74 26 126/51 (76) 97 01/30/18 13:30 72 26 123/53 (76) 97 01/30/18 13:00 70 23 131/68 (89) 96 01/30/18 12:51 72 32 99 Mechanical Ventilator 50 01/30/18 12:50 71 32 50 01/30/18 12:46 69 32 98 Mechanical Ventilator 50 01/30/18 12:46 50 01/30/18 12:36 31 Endotracheal Tube 50 01/30/18 12:30 70 25 128/67 (87) 99 01/30/18 12:00 Mechanical Ventilator 01/30/18 12:00 50 01/30/18 12:00 98.7 68 23 128/67 (87) 98 01/30/18 11:30 69 25 148/66 (93) 98 01/30/18 11:00 70 29 148/66 (93) 98 01/30/18 10:42 70 32 50 01/30/18 10:00 83 25 129/57 (81) 98 01/30/18 09:57 80 138/60 01/30/18 09:30 82 24 144/75 (98) 98 01/30/18 09:27 72 30 50 01/30/18 09:00 83 22 138/60 (86) 98 01/30/18 08:30 112 35 128/64 (85) 97 01/30/18 08:00 50 01/30/18 08:00 98.2 83 32 132/51 (78) 96 01/30/18 08:00 82 01/30/18 07:49 Mechanical Ventilator 01/30/18 07:30 80 31 124/57 (79) 96 01/30/18 07:02 84 30 99 Mechanical Ventilator 50 01/30/18 07:00 84 17 103/71 (82) 95 01/30/18 07:00 17 Mechanical Ventilator 50 01/30/18 06:56 78 30 50 01/30/18 06:55 83 30 97 Mechanical Ventilator 50 01/30/18 06:55 50 01/30/18 06:30 83 22 138/65 (89) 94 01/30/18 06:00 78 29 127/58 (81) 97 01/30/18 06:00 29 Mechanical Ventilator 50 01/30/18 05:30 108 20 139/69 (92) 98 01/30/18 05:29 99 31 Mechanical Ventilator 50 01/30/18 05:07 80 31 50 01/30/18 05:00 81 25 132/69 (90) 97 01/30/18 05:00 25 Mechanical Ventilator 50 01/30/18 04:30 84 26 143/71 (95) 89 01/30/18 04:00 Mechanical Ventilator 01/30/18 04:00 20 Mechanical Ventilator 50 01/30/18 04:00 50 01/30/18 04:00 97.5 80 20 141/65 (90) 96 01/30/18 03:30 79 20 136/40 (72) 96 01/30/18 03:27 79 01/30/18 03:14 87 30 50 01/30/18 03:00 20 Mechanical Ventilator 50 01/30/18 03:00 79 20 136/65 (88) 94 01/30/18 02:30 79 20 135/89 (104) 95 01/30/18 02:09 19 Mechanical Ventilator 50 01/30/18 02:00 107 26 124/59 (80) 97 01/30/18 02:00 26 Mechanical Ventilator 50 01/30/18 01:31 77 30 99 Mechanical Ventilator 50 01/30/18 01:30 77 30 143/75 (97) 100 01/30/18 01:21 78 2 99 Endotracheal Tube 50 01/30/18 01:20 80 33 50 01/30/18 01:00 107 30 108/47 (67) 87 01/30/18 01:00 30 Mechanical Ventilator 50 01/30/18 00:30 77 21 113/69 (84) 90 01/30/18 00:00 50 01/30/18 00:00 Mechanical Ventilator 01/30/18 00:00 30 Mechanical Ventilator 50 01/30/18 00:00 98.9 106 24 128/79 (95) 89 01/29/18 23:57 105 12/9/18 23:30 74 23 128/83 (98) 97 01/29/18 23:28 72 32 50 01/29/18 23:00 71 30 100/48 (65) 97 01/29/18 23:00 30 Mechanical Ventilator 50 01/29/18 22:30 99 30 109/58 (75) 96 01/29/18 22:00 73 20 103/86 (92) 96 01/29/18 22:00 20 Mechanical Ventilator 50 01/29/18 21:30 84 20 136/85 (102) 96 01/29/18 21:15 90 32 50 01/29/18 21:09 106 122/49 01/29/18 21:00 109 17 122/49 (73) 96 01/29/18 21:00 28 Mechanical Ventilator 50 01/29/18 20:30 113 28 136/85 (102) 96 01/29/18 20:00 99.6 92 23 142/62 (88) 96 01/29/18 20:00 50 01/29/18 20:00 23 Mechanical Ventilator 50 01/29/18 20:00 Mechanical Ventilator 01/29/18 19:52 91 01/29/18 19:30 112 14 138/53 (81) 96 01/29/18 19:09 102 30 100 Mechanical Ventilator 50 01/29/18 19:05 96 30 50 01/29/18 19:01 79 31 96 Endotracheal Tube 50 01/29/18 19:00 25 Mechanical Ventilator 50 01/29/18 19:00 109 22 138/53 (81) 95 01/29/18 18:30 84 27 150/78 (102) 95 01/29/18 18:00 88 25 134/64 (87) 91 01/29/18 18:00 20 Mechanical Ventilator 50 01/29/18 17:30 80 27 111/46 (67) 96 01/29/18 17:00 23 Mechanical Ventilator 50 01/29/18 17:00 81 30 114/52 (72) 97 01/29/18 16:42 83 30 50 01/29/18 16:42 27 Mechanical Ventilator 50 01/29/18 16:30 79 26 142/48 (79) 94 01/29/18 16:00 80 01/29/18 16:00 50 01/29/18 16:00 99.0 80 26 105/45 (65) 95 01/29/18 16:00 Mechanical Ventilator I&O Intake and Output 01/29/18 01/30/18 19:00 07:00 Intake Total 1741.416 ml 1305.6 ml Output Total 745 ml 740 ml Balance 996.416 ml 565.6 ml Intake Oral 0 ml 0 ml IV Total 991.416 ml 1265.6 ml Tube Feeding 550 ml Other 200 ml 40 ml Output Urine Total 745 ml 740 ml Dressing: other Wound: other Drains: other Cardiovascular: RSR Respiratory: decreased breath sounds Abdomen: soft, flat, present bowel sounds Extremities: no cyanosis, other Laboratory Tests Test 01/30/18 04:40 01/30/18 07:30 01/30/18 14:25 White Blood Count 15.6 K/UL (4.8-10.8) H Red Blood Count 3.42 M/UL (4.70-6.10) L Hemoglobin 11.0 G/DL (14.2-18.0) L Hematocrit 33.4 % (42.0-52.0) L Mean Corpuscular Volume 98 FL (80-99) Mean Corpuscular Hemoglobin 32.2 PG (27.0-31.0) H Mean Corpuscular Hemoglobin Concent 32.9 G/DL (32.0-36.0) Red Cell Distribution Width 13.6 % (11.6-14.8) Platelet Count 145 K/UL (150-450) L Mean Platelet Volume 7.6 FL (6.5-10.1) Neutrophils (%) (Auto) % (45.0-75.0) Lymphocytes (%) (Auto) % (20.0-45.0) Monocytes (%) (Auto) % (1.0-10.0) Eosinophils (%) (Auto) % (0.0-3.0) Basophils (%) (Auto) % (0.0-2.0) Differential Total Cells Counted 100 Neutrophils % (Manual) 89 % (45-75) H Lymphocytes % (Manual) 6 % (20-45) L Monocytes % (Manual) 5 % (1-10) Eosinophils % (Manual) 0 % (0-3) Basophils % (Manual) 0 % (0-2) Band Neutrophils 0 % (0-8) Platelet Estimate Decreased L Platelet Morphology Normal Hypochromasia 1+ Anisocytosis 1+ Sodium Level 145 MMOL/L (136-145) Potassium Level 5.8 MMOL/L (3.5-5.1) H Chloride Level 112 MMOL/L (98-107) H Carbon Dioxide Level 26 MMOL/L (21-32) Anion Gap 8 mmol/L (5-15) Blood Urea Nitrogen 41 mg/dL (7-18) H Creatinine 1.0 MG/DL (0.55-1.30) Estimat Glomerular Filtration Rate mL/min (>60) Glucose Level 116 MG/DL (74-106) H Calcium Level 8.2 MG/DL (8.5-10.1) L Phosphorus Level 2.7 MG/DL (2.5-4.9) Magnesium Level 1.9 MG/DL (1.8-2.4) Total Bilirubin 1.1 MG/DL (0.2-1.0) H Direct Bilirubin 0.5 MG/DL (0.0-0.3) H Aspartate Amino Transf (AST/SGOT) 22 U/L (15-37) Alanine Aminotransferase (ALT/SGPT) 17 U/L (12-78) Alkaline Phosphatase 87 U/L (46-116) Pro-B-Type Natriuretic Peptide 4754 pg/mL (0-125) H Total Protein 6.3 G/DL (6.4-8.2) L Albumin 1.6 G/DL (3.4-5.0) L Globulin 4.7 g/dL Albumin/Globulin Ratio 0.3 (1.0-2.7) L Reticulocyte Count 1.8 % (0.0-2.0) Sickle Cell Screen Pending Prothrombin Time 12.4 SEC (9.30-11.50) H Prothromb Time International Ratio 1.2 (0.9-1.1) H PTT Mixing Study Pending APTT Patient/Control Mix Pending Mix PTT Incubation Time Pending Mix PTT Normal/Saline 1:1 Immediate Pending Thrombin Time Normal Plasma Pending Iron Level 22 ug/dL (50-175) L Total Iron Binding Capacity 243 ug/dL (250-450) L Percent Iron Saturation 9 % (15-50) L Unsaturated Iron Binding 221 ug/dL (112-346) Ferritin 1660 NG/ML (8-388) H Lactate Dehydrogenase 323 U/L (81-234) H Carcinoembryonic Antigen Pending Hepatitis A IgM Antibody Pending Hepatitis B Surface Antigen Pending Hepatitis B Core IgM Antibody Pending Hepatitis C Antibody Pending HIV (1&2) Antibody Rapid Negative (NEGATIVE) Arterial Blood pH 7.333 (7.350-7.450) Arterial Blood Partial Pressure CO2 52.1 mmHg (35.0-45.0) H Arterial Blood Partial Pressure O2 64.9 mmHg (75.0-100.0) L Arterial Blood HCO3 27.0 mmol/L (22.0-26.0) H Arterial Blood Oxygen Saturation 91.8 % (95-100) L Arterial Blood Base Excess 0.5 (-2-2) Dima Test Positive Plan Problems: (1) Decubitus ulcer of sacral region, stage 3 Assessment & Plan: Stage III full thickness pressure injury sacrum present on admission (L)2cm x (W)1.8cm ,wound bed with 80% yellow slough ,20% granular Borders slightly macerated. Non-blanching erythema without elevation in skin temp, or induration periwound. NO odor noted. Abrasions noted to R elbow (L)3.2cm x (W)1.9cm.Wound with Biofilm ,erythema al; lynn borders .Periwound clean and intact. Abrasion noted to L elbow(L)5.5cm x (W)1.6cm ,biofim noted to wound bed .erythema along borders .Periwound without erythema or elevation in skin temp. Abrasion lateral L knee with dry scab. Abrasion medial R knee with dry scab. Bilat heels boggy with non-blanching erythema. Non-tender when palpated. Pt repositioned with pillow on his side but restless and repositioned self on back. Caregivers presents and made aware of pressure injury to sacrum and interventions implemented to prevent further skin breakdown. Tx.Plan: Cleanse R and L elbows with Saline.Apply Silvasorb Gel to both elbows .Cover with Optifoam drsg .Change every 3 Days and prn. Cleanse Sacral Pressure injury with Saline.Apply Therahoney .Cavilon periwound.Cover with Optifoam drsg Daily and prn. Apply Cavilon to Both heels.Cover with Optifoam drsg .Change Every 7 days and prn. Cavilon to abrasions R and L lower ext.Cover with Optifoam change every 7 days and prn. Off-load heels with pillow. Reposition at least every 2 hours or as tolerated. Surface support mattress. (2) Abnormal LFTs Assessment & Plan: US reviewed - absent GB dilated ducts CT reviewed - dilated duct without notable obstruction LFT's noted and elevated t bili trending down no jaundice AST/ALT nml Alk phos nml -no acute surgical intervention necessary -t bili and d bili correlate. unlikely obstructive at this time. especially with history of cholecystectomy prior -trend labs thank you (3) Severe sepsis Myke Merino Jan 30, 2018 15:33
--- NOTE | 2018-01-30 17:16 | Cardiac Electrophysiology PN ---
Assessment/Plan Assessment/Plan 1. Troponin Leak. The levels are flat. Likely due to the respiratory failure and azotemia. Echo normal LVEF 2. Respiratory failure, due to PNA and CHF. The patient is on the ventilator. Antibiotic per ID Continue to wean per Dr. Johnson. Hopefully extubate in am. 3. Hypokalemia, potassium was replaced. 4. Azotemia. Sodium is 147. FU Dr Mclaughlin 5. Elevated bilirubin of 2.3. Now is 1.1 DW RN Subjective Subjective In ICU on the Vent.On fentanyl drip 50 mcg. Now off and on fib.Still being weaned. Objective Last 24 Hour Vital Signs Date Time Temp Pulse Resp B/P (MAP) Pulse Ox O2 Delivery O2 Flow Rate FiO2 01/30/18 16:00 97.9 79 25 146/61 (89) 94 01/30/18 16:00 23 Mechanical Ventilator 50 01/30/18 16:00 50 01/30/18 16:00 Mechanical Ventilator 01/30/18 16:00 80 01/30/18 15:30 80 26 160/73 (102) 94 01/30/18 15:00 23 Mechanical Ventilator 50 01/30/18 15:00 81 23 117/52 (73) 98 01/30/18 14:36 73 30 50 01/30/18 14:30 72 20 117/52 (73) 100 01/30/18 14:00 74 26 126/51 (76) 97 01/30/18 14:00 26 Mechanical Ventilator 50 01/30/18 13:30 72 26 123/53 (76) 97 01/30/18 13:00 70 23 131/68 (89) 96 01/30/18 13:00 23 Mechanical Ventilator 50 01/30/18 12:51 72 32 99 Mechanical Ventilator 50 01/30/18 12:50 71 32 50 01/30/18 12:46 69 32 98 Mechanical Ventilator 50 01/30/18 12:46 50 01/30/18 12:36 31 Endotracheal Tube 50 01/30/18 12:30 70 25 128/67 (87) 99 01/30/18 12:00 Mechanical Ventilator 01/30/18 12:00 23 Mechanical Ventilator 50 01/30/18 12:00 50 01/30/18 12:00 98.7 68 23 128/67 (87) 98 01/30/18 12:00 71 12/10/18 11:30 69 25 148/66 (93) 98 01/30/18 11:00 70 29 148/66 (93) 98 01/30/18 11:00 16 Mechanical Ventilator 50 01/30/18 10:42 70 32 50 01/30/18 10:00 83 25 129/57 (81) 98 01/30/18 10:00 25 Mechanical Ventilator 50 01/30/18 09:57 80 138/60 01/30/18 09:30 82 24 144/75 (98) 98 01/30/18 09:27 72 30 50 01/30/18 09:00 83 22 138/60 (86) 98 01/30/18 09:00 22 Mechanical Ventilator 50 01/30/18 08:30 112 35 128/64 (85) 97 01/30/18 08:00 20 Mechanical Ventilator 50 01/30/18 08:00 50 01/30/18 08:00 98.2 83 32 132/51 (78) 96 01/30/18 08:00 82 01/30/18 07:49 Mechanical Ventilator 01/30/18 07:30 80 31 124/57 (79) 96 01/30/18 07:02 84 30 99 Mechanical Ventilator 50 01/30/18 07:00 84 17 103/71 (82) 95 01/30/18 07:00 17 Mechanical Ventilator 50 01/30/18 06:56 78 30 50 01/30/18 06:55 83 30 97 Mechanical Ventilator 50 01/30/18 06:55 50 01/30/18 06:30 83 22 138/65 (89) 94 01/30/18 06:00 78 29 127/58 (81) 97 01/30/18 06:00 29 Mechanical Ventilator 50 01/30/18 05:30 108 20 139/69 (92) 98 01/30/18 05:29 99 31 Mechanical Ventilator 50 01/30/18 05:07 80 31 50 01/30/18 05:00 81 25 132/69 (90) 97 01/30/18 05:00 25 Mechanical Ventilator 50 01/30/18 04:30 84 26 143/71 (95) 89 01/30/18 04:00 Mechanical Ventilator 01/30/18 04:00 20 Mechanical Ventilator 50 01/30/18 04:00 50 01/30/18 04:00 97.5 80 20 141/65 (90) 96 01/30/18 03:30 79 20 136/40 (72) 96 01/30/18 03:27 79 01/30/18 03:14 87 30 50 01/30/18 03:00 20 Mechanical Ventilator 50 01/30/18 03:00 79 20 136/65 (88) 94 01/30/18 02:30 79 20 135/89 (104) 95 01/30/18 02:09 19 Mechanical Ventilator 50 01/30/18 02:00 107 26 124/59 (80) 97 01/30/18 02:00 26 Mechanical Ventilator 50 01/30/18 01:31 77 30 99 Mechanical Ventilator 50 01/30/18 01:30 77 30 143/75 (97) 100 01/30/18 01:21 78 2 99 Endotracheal Tube 50 01/30/18 01:20 80 33 50 01/30/18 01:00 107 30 108/47 (67) 87 01/30/18 01:00 30 Mechanical Ventilator 50 01/30/18 00:30 77 21 113/69 (84) 90 01/30/18 00:00 50 01/30/18 00:00 Mechanical Ventilator 01/30/18 00:00 30 Mechanical Ventilator 50 01/30/18 00:00 98.9 106 24 128/79 (95) 89 01/29/18 23:57 105 01/29/18 23:30 74 23 128/83 (98) 97 01/29/18 23:28 72 32 50 01/29/18 23:00 71 30 100/48 (65) 97 01/29/18 23:00 30 Mechanical Ventilator 50 01/29/18 22:30 99 30 109/58 (75) 96 01/29/18 22:00 73 20 103/86 (92) 96 01/29/18 22:00 20 Mechanical Ventilator 50 01/29/18 21:30 84 20 136/85 (102) 96 01/29/18 21:15 90 32 50 01/29/18 21:09 106 122/49 01/29/18 21:00 109 17 122/49 (73) 96 01/29/18 21:00 28 Mechanical Ventilator 50 01/29/18 20:30 113 28 136/85 (102) 96 01/29/18 20:00 99.6 92 23 142/62 (88) 96 01/29/18 20:00 50 01/29/18 20:00 23 Mechanical Ventilator 50 01/29/18 20:00 Mechanical Ventilator 01/29/18 19:52 91 01/29/18 19:30 112 14 138/53 (81) 96 01/29/18 19:09 102 30 100 Mechanical Ventilator 50 01/29/18 19:05 96 30 50 01/29/18 19:01 79 31 96 Endotracheal Tube 50 01/29/18 19:00 25 Mechanical Ventilator 50 01/29/18 19:00 109 22 138/53 (81) 95 01/29/18 18:30 84 27 150/78 (102) 95 01/29/18 18:00 88 25 134/64 (87) 91 01/29/18 18:00 20 Mechanical Ventilator 50 01/29/18 17:30 80 27 111/46 (67) 96 Intake and Output 01/29/18 01/30/18 19:00 07:00 Intake Total 1741.416 ml 1305.6 ml Output Total 745 ml 740 ml Balance 996.416 ml 565.6 ml Intake Oral 0 ml 0 ml IV Total 991.416 ml 1265.6 ml Tube Feeding 550 ml Other 200 ml 40 ml Output Urine Total 745 ml 740 ml Laboratory Tests Test 01/30/18 04:40 01/30/18 07:30 01/30/18 14:25 White Blood Count 15.6 K/UL (4.8-10.8) H Red Blood Count 3.42 M/UL (4.70-6.10) L Hemoglobin 11.0 G/DL (14.2-18.0) L Hematocrit 33.4 % (42.0-52.0) L Mean Corpuscular Volume 98 FL (80-99) Mean Corpuscular Hemoglobin 32.2 PG (27.0-31.0) H Mean Corpuscular Hemoglobin Concent 32.9 G/DL (32.0-36.0) Red Cell Distribution Width 13.6 % (11.6-14.8) Platelet Count 145 K/UL (150-450) L Mean Platelet Volume 7.6 FL (6.5-10.1) Neutrophils (%) (Auto) % (45.0-75.0) Lymphocytes (%) (Auto) % (20.0-45.0) Monocytes (%) (Auto) % (1.0-10.0) Eosinophils (%) (Auto) % (0.0-3.0) Basophils (%) (Auto) % (0.0-2.0) Differential Total Cells Counted 100 Neutrophils % (Manual) 89 % (45-75) H Lymphocytes % (Manual) 6 % (20-45) L Monocytes % (Manual) 5 % (1-10) Eosinophils % (Manual) 0 % (0-3) Basophils % (Manual) 0 % (0-2) Band Neutrophils 0 % (0-8) Platelet Estimate Decreased L Platelet Morphology Normal Hypochromasia 1+ Anisocytosis 1+ Sodium Level 145 MMOL/L (136-145) Potassium Level 5.8 MMOL/L (3.5-5.1) H Chloride Level 112 MMOL/L (98-107) H Carbon Dioxide Level 26 MMOL/L (21-32) Anion Gap 8 mmol/L (5-15) Blood Urea Nitrogen 41 mg/dL (7-18) H Creatinine 1.0 MG/DL (0.55-1.30) Estimat Glomerular Filtration Rate mL/min (>60) Glucose Level 116 MG/DL (74-106) H Calcium Level 8.2 MG/DL (8.5-10.1) L Phosphorus Level 2.7 MG/DL (2.5-4.9) Magnesium Level 1.9 MG/DL (1.8-2.4) Total Bilirubin 1.1 MG/DL (0.2-1.0) H Direct Bilirubin 0.5 MG/DL (0.0-0.3) H Aspartate Amino Transf (AST/SGOT) 22 U/L (15-37) Alanine Aminotransferase (ALT/SGPT) 17 U/L (12-78) Alkaline Phosphatase 87 U/L (46-116) Pro-B-Type Natriuretic Peptide 4754 pg/mL (0-125) H Total Protein 6.3 G/DL (6.4-8.2) L Albumin 1.6 G/DL (3.4-5.0) L Globulin 4.7 g/dL Albumin/Globulin Ratio 0.3 (1.0-2.7) L Reticulocyte Count 1.8 % (0.0-2.0) Sickle Cell Screen Pending Prothrombin Time 12.4 SEC (9.30-11.50) H Prothromb Time International Ratio 1.2 (0.9-1.1) H PTT Mixing Study Pending APTT Patient/Control Mix Pending Mix PTT Incubation Time Pending Mix PTT Normal/Saline 1:1 Immediate Pending Thrombin Time Normal Plasma Pending Iron Level 22 ug/dL (50-175) L Total Iron Binding Capacity 243 ug/dL (250-450) L Percent Iron Saturation 9 % (15-50) L Unsaturated Iron Binding 221 ug/dL (112-346) Ferritin 1660 NG/ML (8-388) H Lactate Dehydrogenase 323 U/L (81-234) H Carcinoembryonic Antigen Pending Hepatitis A IgM Antibody Pending Hepatitis B Surface Antigen Pending Hepatitis B Core IgM Antibody Pending Hepatitis C Antibody Pending HIV (1&2) Antibody Rapid Negative (NEGATIVE) Arterial Blood pH 7.333 (7.350-7.450) Arterial Blood Partial Pressure CO2 52.1 mmHg (35.0-45.0) H Arterial Blood Partial Pressure O2 64.9 mmHg (75.0-100.0) L Arterial Blood HCO3 27.0 mmol/L (22.0-26.0) H Arterial Blood Oxygen Saturation 91.8 % (95-100) L Arterial Blood Base Excess 0.5 (-2-2) Dmia Test Positive Microbiology Date/Time Source Procedure Growth Status 01/29/18 12:10 Sputum Expectorated Gram Stain - Final Resulted 01/29/18 12:10 Sputum Expectorated Sputum Culture Pending Resulted Objective HEAD AND NECK: No JVD, orally intubated. LUNGS: Coarse rhonchi bilaterally. CARDIOVASCULAR: Regular S1 and S2 with no murmur. ABDOMEN: Soft. EXTREMITIES: No pitting edema, Josep Brar MD Jan 30, 2018 17:16
[2018-01-30] MEDS: Milk of Magnesia 30ml Ud ORAL PRN (20:26)
[2018-01-30] MEDS: Azithromycin 250 MG in D5W 275 ML IV SCH (20:36)
--- NOTE | 2018-01-30 21:23 | General Progress Note ---
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 (2) Renal insufficiency ICD Codes: N28.9 - Disorder of kidney and ureter, unspecified; R65.20 - Severe sepsis without septic shock SNOMED: 038860803, 912590277 (3) UTI (urinary tract infection) ICD Codes: N39.0 - Urinary tract infection, site not specified SNOMED: 37635938, 482664655 Qualifiers: Qualified Codes: N39.0 - Urinary tract infection, site not specified (4) Pneumonia ICD Codes: J18.9 - Pneumonia, unspecified organism SNOMED: 261347846 Qualifiers: Qualified Codes: J18.1 - Lobar pneumonia, unspecified organism (5) Severe sepsis ICD Codes: A41.9 - Sepsis, unspecified organism; R65.20 - Severe sepsis without septic shock SNOMED: 47278336 (6) Hypoxia ICD Codes: R09.02 - Hypoxemia; R65.20 - Severe sepsis without septic shock SNOMED: 483822527, 533661078 (7) Pulmonary fibrosis ICD Codes: J84.10 - Pulmonary fibrosis, unspecified SNOMED: 03919332 (8) Lactic acid acidosis ICD Codes: E87.2 - Acidosis SNOMED: 11019049 (9) OLEG (acute kidney injury) ICD Codes: N17.9 - Acute kidney failure, unspecified SNOMED: 65394865 (10) Abnormal LFTs ICD Codes: R94.5 - Abnormal results of liver function studies SNOMED: 451975469 Assessment/Plan severe pulmonary firbrosis resp failure lyte abnormality poor prognosis not improving no wheezing bilat rales pna sepsis Subjective ROS Limited/Unobtainable: Yes Allergies: Coded Allergies: No Known Allergies (Unverified , 01/24/18) Objective Last 24 Hour Vital Signs Date Time Temp Pulse Resp B/P (MAP) Pulse Ox O2 Delivery O2 Flow Rate FiO2 01/30/18 21:00 77 28 138/56 (83) 92 01/30/18 20:45 77 28 138/61 (86) 93 01/30/18 20:30 80 26 143/69 (93) 93 01/30/18 20:26 82 133/76 01/30/18 20:15 78 29 133/76 (95) 93 01/30/18 20:00 50 01/30/18 20:00 Mechanical Ventilator 01/30/18 20:00 98.7 78 28 107/88 (94) 93 01/30/18 20:00 79 01/30/18 19:55 Mechanical Ventilator 01/30/18 19:54 Mechanical Ventilator 50 01/30/18 19:30 77 30 40 01/30/18 19:30 79 25 148/67 (94) 95 01/30/18 19:00 79 25 124/59 (80) 93 01/30/18 19:00 23 Mechanical Ventilator 40 01/30/18 18:30 78 25 135/62 (86) 91 01/30/18 18:05 77 25 150/73 (98) 91 01/30/18 18:00 32 Mechanical Ventilator 40 01/30/18 17:30 76 28 156/62 (93) 93 01/30/18 17:13 89 30 40 01/30/18 17:00 78 23 142/59 (86) 98 01/30/18 17:00 25 Mechanical Ventilator 50 01/30/18 16:30 77 25 146/61 (89) 95 01/30/18 16:00 97.9 79 25 146/61 (89) 94 01/30/18 16:00 23 Mechanical Ventilator 50 01/30/18 16:00 50 01/30/18 16:00 Mechanical Ventilator 01/30/18 16:00 80 01/30/18 15:30 80 26 160/73 (102) 94 01/30/18 15:00 23 Mechanical Ventilator 50 01/30/18 15:00 81 23 117/52 (73) 98 01/30/18 14:36 73 30 50 01/30/18 14:30 72 20 117/52 (73) 100 01/30/18 14:00 74 26 126/51 (76) 97 01/30/18 14:00 26 Mechanical Ventilator 50 01/30/18 13:30 72 26 123/53 (76) 97 01/30/18 13:00 70 23 131/68 (89) 96 01/30/18 13:00 23 Mechanical Ventilator 50 01/30/18 12:51 72 32 99 Mechanical Ventilator 50 01/30/18 12:50 71 32 50 01/30/18 12:46 69 32 98 Mechanical Ventilator 50 01/30/18 12:46 50 01/30/18 12:36 31 Endotracheal Tube 50 01/30/18 12:30 70 25 128/67 (87) 99 01/30/18 12:00 Mechanical Ventilator 01/30/18 12:00 23 Mechanical Ventilator 50 01/30/18 12:00 50 01/30/18 12:00 98.7 68 23 128/67 (87) 98 01/30/18 12:00 71 01/30/18 11:30 69 25 148/66 (93) 98 01/30/18 11:00 70 29 148/66 (93) 98 01/30/18 11:00 16 Mechanical Ventilator 50 01/30/18 10:42 70 32 50 01/30/18 10:00 83 25 129/57 (81) 98 01/30/18 10:00 25 Mechanical Ventilator 50 01/30/18 09:57 80 138/60 01/30/18 09:30 82 24 144/75 (98) 98 01/30/18 09:27 72 30 50 01/30/18 09:00 83 22 138/60 (86) 98 01/30/18 09:00 22 Mechanical Ventilator 50 01/30/18 08:30 112 35 128/64 (85) 97 01/30/18 08:00 20 Mechanical Ventilator 50 01/30/18 08:00 50 01/30/18 08:00 98.2 83 32 132/51 (78) 96 01/30/18 08:00 82 01/30/18 07:49 Mechanical Ventilator 01/30/18 07:30 80 31 124/57 (79) 96 01/30/18 07:02 84 30 99 Mechanical Ventilator 50 01/30/18 07:00 84 17 103/71 (82) 95 01/30/18 07:00 17 Mechanical Ventilator 50 01/30/18 06:56 78 30 50 01/30/18 06:55 83 30 97 Mechanical Ventilator 50 01/30/18 06:55 50 01/30/18 06:30 83 22 138/65 (89) 94 01/30/18 06:00 78 29 127/58 (81) 97 01/30/18 06:00 29 Mechanical Ventilator 50 01/30/18 05:30 108 20 139/69 (92) 98 01/30/18 05:29 99 31 Mechanical Ventilator 50 01/30/18 05:07 80 31 50 01/30/18 05:00 81 25 132/69 (90) 97 12/10/18 05:00 25 Mechanical Ventilator 50 01/30/18 04:30 84 26 143/71 (95) 89 01/30/18 04:00 Mechanical Ventilator 01/30/18 04:00 20 Mechanical Ventilator 50 01/30/18 04:00 50 01/30/18 04:00 97.5 80 20 141/65 (90) 96 01/30/18 03:30 79 20 136/40 (72) 96 01/30/18 03:27 79 01/30/18 03:14 87 30 50 01/30/18 03:00 20 Mechanical Ventilator 50 01/30/18 03:00 79 20 136/65 (88) 94 01/30/18 02:30 79 20 135/89 (104) 95 01/30/18 02:09 19 Mechanical Ventilator 50 01/30/18 02:00 107 26 124/59 (80) 97 01/30/18 02:00 26 Mechanical Ventilator 50 01/30/18 01:31 77 30 99 Mechanical Ventilator 50 01/30/18 01:30 77 30 143/75 (97) 100 01/30/18 01:21 78 2 99 Endotracheal Tube 50 01/30/18 01:20 80 33 50 01/30/18 01:00 107 30 108/47 (67) 87 01/30/18 01:00 30 Mechanical Ventilator 50 01/30/18 00:30 77 21 113/69 (84) 90 01/30/18 00:00 50 01/30/18 00:00 Mechanical Ventilator 01/30/18 00:00 30 Mechanical Ventilator 50 01/30/18 00:00 98.9 106 24 128/79 (95) 89 01/29/18 23:57 105 01/29/18 23:30 74 23 128/83 (98) 97 01/29/18 23:28 72 32 50 01/29/18 23:00 71 30 100/48 (65) 97 01/29/18 23:00 30 Mechanical Ventilator 50 01/29/18 22:30 99 30 109/58 (75) 96 01/29/18 22:00 73 20 103/86 (92) 96 01/29/18 22:00 20 Mechanical Ventilator 50 01/29/18 21:30 84 20 136/85 (102) 96 Intake and Output 01/29/18 01/30/18 18:59 06:59 Intake Total 1805.416 ml 1306.6 ml Output Total 730 ml 710 ml Balance 1075.416 ml 596.6 ml Intake Oral 0 ml IV Total 1005.416 ml 1266.6 ml Tube Feeding 600 ml Other 200 ml 40 ml Output Urine Total 730 ml 710 ml Laboratory Tests 01/30/18 04:40: White Blood Count 15.6H, Red Blood Count 3.42L, Hemoglobin 11.0L, Hematocrit 33.4L, Mean Corpuscular Volume 98, Mean Corpuscular Hemoglobin 32.2H, Mean Corpuscular Hemoglobin Concent 32.9, Red Cell Distribution Width 13.6, Platelet Count 145L, Mean Platelet Volume 7.6, Neutrophils (%) (Auto) , Lymphocytes (%) ( Auto) , Monocytes (%) (Auto) , Eosinophils (%) (Auto) , Basophils (%) (Auto) , Differential Total Cells Counted 100, Neutrophils % (Manual) 89H, Lymphocytes % (Manual) 6L, Monocytes % (Manual) 5, Eosinophils % (Manual) 0, Basophils % ( Manual) 0, Band Neutrophils 0, Platelet Estimate DecreasedL, Platelet Morphology Normal, Hypochromasia 1+, Anisocytosis 1+, Sodium Level 145, Potassium Level 5.8H, Chloride Level 112H, Carbon Dioxide Level 26, Anion Gap 8 , Blood Urea Nitrogen 41H, Creatinine 1.0, Estimat Glomerular Filtration Rate , Glucose Level 116H, Calcium Level 8.2L, Phosphorus Level 2.7, Magnesium Level 1.9, Total Bilirubin 1.1H, Direct Bilirubin 0.5H, Aspartate Amino Transf (AST/ SGOT) 22, Alanine Aminotransferase (ALT/SGPT) 17, Alkaline Phosphatase 87, Pro-B -Type Natriuretic Peptide 4754H, Total Protein 6.3L, Albumin 1.6L, Globulin 4.7 , Albumin/Globulin Ratio 0.3L 01/30/18 07:30: Reticulocyte Count 1.8, Sickle Cell Screen [Pending], Prothrombin Time 12.4H, Prothromb Time International Ratio 1.2H, PTT Mixing Study [Pending], APTT Patient/Control Mix [Pending], Mix PTT Incubation Time [Pending], Mix PTT Normal /Saline 1:1 Immediate [Pending], Thrombin Time Normal Plasma [Pending], Iron Level 22L, Total Iron Binding Capacity 243L, Percent Iron Saturation 9L, Unsaturated Iron Binding 221, Ferritin 1660H, Lactate Dehydrogenase 323H, Carcinoembryonic Antigen [Pending], Hepatitis A IgM Antibody [Pending], Hepatitis B Surface Antigen [Pending], Hepatitis B Core IgM Antibody [Pending], Hepatitis C Antibody [Pending], HIV (1&2) Antibody Rapid Negative 01/30/18 14:25: Arterial Blood pH 7.333L, Arterial Blood Partial Pressure CO2 52.1H, Arterial Blood Partial Pressure O2 64.9L, Arterial Blood HCO3 27.0H, Arterial Blood Oxygen Saturation 91.8L, Arterial Blood Base Excess 0.5, Dima Test Positive Height (Feet): 5 Height (Inches): 9.00 Weight (Pounds): 153 Cardiovascular: normal rate Abdomen: non tender Edwin Corrigan MD Jan 30, 2018 21:23
[2018-01-31] VITALS (36 sets, daily range): BP systolic 105–173; BP diastolic 40–88
[2018-01-31] MEDS: Midazolam 2mg/2ml Inj IVP PRN ×2 (02:23→22:18)
[2018-01-31 05:10] LABS: HEMATOCRIT 32.2 % (42.0-52.0); HEMOGLOBIN 10.5 G/DL (14.2-18.0); MEAN CORPUSCULAR VOLUME 97 FL (80-99); PLATELET COUNT 164 K/UL (150-450); RED BLOOD COUNT 3.33 M/UL (4.70-6.10); WHITE BLOOD COUNT 11.9 K/UL (4.8-10.8)
[2018-01-31 05:38] LABS: ALANINE AMINOTRANSFERASE 15 U/L (12-78); ALBUMIN 1.4 G/DL (3.4-5.0); ALBUMIN/GLOBULIN RATIO 0.3 (1.0-2.7); ALKALINE PHOSPHATASE 76 U/L (46-116); ANION GAP 4 mmol/L (5-15); ASPARTATE AMINO TRANSFERASE 16 U/L (15-37); BILIRUBIN,TOTAL 0.8 MG/DL (0.2-1.0); BLOOD UREA NITROGEN 37 mg/dL (7-18); CARBON DIOXIDE 30 MMOL/L (21-32); CHLORIDE 112 MMOL/L (98-107); CREATININE 0.9 MG/DL (0.55-1.30); PHOSPHORUS 2.8 MG/DL (2.5-4.9); POTASSIUM 4.2 MMOL/L (3.5-5.1); SODIUM 146 MMOL/L (136-145)
[2018-01-31] MEDS: Metoprolol 25mg tab ORAL SCH (08:24)
[2018-01-31] MEDS: Heparin 5000 units/ml inj SUBQ SCH ×2 (08:26→20:40)
[2018-01-31] MEDS: Cefepime HCl 1 GM in D5W 55 ML IVPB SCH ×2 (09:48→21:46)
--- NOTE | 2018-01-31 09:57 | Pulmonolgy Critical Care Note ---
Critical Care - Asmt/Plan Problems: (1) Pulmonary fibrosis (2) Multifocal pneumonia (3) Respiratory disorder with ventilator dependence (4) Lactic acid acidosis (5) Abnormal LFTs (6) OLEG (acute kidney injury) (7) SIRS (systemic inflammatory response syndrome) (8) UTI (urinary tract infection) Assessment/Plan: ASSESSMENT: The patient is a 77-year-old male, current daily smoker with history of hypertension, back pain, lack of health maintenance, presenting with respiratory illness, bilateral pneumonia, lactic acidosis, abnormal kidney function and renal function likely OLEG, and shock liver. 01/26: Prog hypoxemia, inc WOB, tx'd to ICU, intubated 01/27: Gas exchange better, trops downtrending, LA resolved 01/30: Oxygenation stable, stable on vent PROBLEM LIST: 1. Bilateral parenchymal infiltrates, multilobar pneumonia on top of underlying fibrotic lung disease 2. VDRF 3. Metabolic & respiratory acidosis 4. Likely underlying pulmonary fibrosis and COPD 5. NSTEMI, likely demand ischemia 6. Lactic acidosis - RESOLVED 7. Abnormal creatinine, likely acute kidney injury - IMPROVED 8. Abnormal liver function tests - IMPROVED 9. SIRS 10. History of hypertension. 11. PNEUMONIA 12. Constipation TREATMENT PLAN: Continue ventilatory support/settings reviewed, monitor gas exchange PEEP 5, dec FiO2 to 40, if oxygen stable will start PS trial Possible extubation to BiPAP HOLD SEDATION for SBT RTC and PRN DUOnebs Cefepime & Azithro (D7), Vanco (D6) per ID, F/U Cx's Cautious TF's, monitor residuals - If doron SBT will hold for extubation ICU sedation: Fentanyl gtt for RASS - 2, Versed 2 mg IV q4 PRN (held for SBT) F/U cardiology recs Monitor volumes and renal function, consider D/C IVF Wound care GI recs, bowel regimen Discuss GOC, FC Px: Hep SQ, H2B D/W family, RN, RT and team CCT 35 Critical Care - Objective Last 24 Hour Vital Signs Date Time Temp Pulse Resp B/P (MAP) Pulse Ox O2 Delivery O2 Flow Rate FiO2 01/31/18 09:44 95 30 01/31/18 09:43 60 01/31/18 09:21 73 30 01/31/18 09:15 60 01/31/18 08:59 71 31 60 12/11/18 08:24 82 148/74 01/31/18 08:00 98.5 85 30 148/74 (98) 99 01/31/18 07:08 74 32 40 01/31/18 07:00 75 27 145/71 (95) 95 01/31/18 06:00 75 27 140/62 (88) 96 01/31/18 05:45 74 27 147/63 (91) 96 01/31/18 05:30 74 27 137/62 (87) 96 01/31/18 05:15 72 27 123/54 (77) 96 01/31/18 05:11 72 31 40 01/31/18 05:00 74 27 137/61 (86) 96 01/31/18 05:00 26 Mechanical Ventilator 60 01/31/18 04:45 76 24 130/74 (92) 94 01/31/18 04:30 76 24 137/67 (90) 94 01/31/18 04:15 76 27 137/67 (90) 94 01/31/18 04:00 76 01/31/18 04:00 60 01/31/18 04:00 98.0 79 24 145/73 (97) 94 01/31/18 04:00 25 Mechanical Ventilator 40 01/31/18 04:00 Mechanical Ventilator 01/31/18 03:30 94 26 152/79 (103) 94 01/31/18 03:00 25 Mechanical Ventilator 60 01/31/18 03:00 100 30 115/56 (75) 93 01/31/18 02:45 100 30 115/56 (75) 93 01/31/18 02:45 102 30 40 01/31/18 02:30 84 30 114/56 (75) 93 01/31/18 02:15 95 30 105/58 (74) 94 01/31/18 02:00 92 32 159/74 (102) 91 01/31/18 02:00 28 Mechanical Ventilator 60 01/31/18 01:30 85 31 167/87 (113) 87 01/31/18 01:23 81 30 40 01/31/18 01:10 Mechanical Ventilator 01/31/18 01:10 Mechanical Ventilator 01/31/18 01:03 81 30 40 01/31/18 01:00 26 Mechanical Ventilator 40 01/31/18 01:00 78 30 114/76 (89) 98 01/31/18 00:30 79 23 160/73 (102) 95 01/31/18 00:00 60 01/31/18 00:00 98 01/31/18 00:00 Mechanical Ventilator 01/31/18 00:00 26 Mechanical Ventilator 40 01/31/18 00:00 98.5 78 23 153/67 (95) 95 01/30/18 23:30 88 30 40 01/30/18 23:30 77 23 159/89 (112) 90 01/30/18 23:00 75 23 140/60 (86) 95 01/30/18 23:00 25 Mechanical Ventilator 40 01/30/18 22:30 75 23 119/59 (79) 95 01/30/18 22:00 24 Mechanical Ventilator 40 01/30/18 22:00 71 25 139/66 (90) 95 01/30/18 21:30 68 30 40 01/30/18 21:30 71 29 143/62 (89) 93 01/30/18 21:00 77 28 138/56 (83) 92 01/30/18 21:00 25 Mechanical Ventilator 40 01/30/18 20:45 77 28 138/61 (86) 93 01/30/18 20:30 80 26 143/69 (93) 93 01/30/18 20:26 82 133/76 01/30/18 20:15 78 29 133/76 (95) 93 01/30/18 20:00 40 01/30/18 20:00 Mechanical Ventilator 01/30/18 20:00 98.7 78 28 107/88 (94) 93 01/30/18 20:00 79 01/30/18 20:00 23 Mechanical Ventilator 40 01/30/18 19:55 Mechanical Ventilator 01/30/18 19:54 Mechanical Ventilator 50 01/30/18 19:30 77 30 40 01/30/18 19:30 79 25 148/67 (94) 95 01/30/18 19:00 79 25 124/59 (80) 93 01/30/18 19:00 23 Mechanical Ventilator 40 01/30/18 18:30 78 25 135/62 (86) 91 01/30/18 18:05 77 25 150/73 (98) 91 01/30/18 18:00 32 Mechanical Ventilator 40 01/30/18 17:30 76 28 156/62 (93) 93 01/30/18 17:13 89 30 40 01/30/18 17:00 78 23 142/59 (86) 98 01/30/18 17:00 25 Mechanical Ventilator 50 01/30/18 16:30 77 25 146/61 (89) 95 01/30/18 16:00 97.9 79 25 146/61 (89) 94 01/30/18 16:00 23 Mechanical Ventilator 50 01/30/18 16:00 50 01/30/18 16:00 Mechanical Ventilator 01/30/18 16:00 80 01/30/18 15:30 80 26 160/73 (102) 94 01/30/18 15:00 23 Mechanical Ventilator 50 01/30/18 15:00 81 23 117/52 (73) 98 01/30/18 14:36 73 30 50 01/30/18 14:30 72 20 117/52 (73) 100 01/30/18 14:00 74 26 126/51 (76) 97 01/30/18 14:00 26 Mechanical Ventilator 50 01/30/18 13:30 72 26 123/53 (76) 97 01/30/18 13:00 70 23 131/68 (89) 96 01/30/18 13:00 23 Mechanical Ventilator 50 01/30/18 12:51 72 32 99 Mechanical Ventilator 50 01/30/18 12:50 71 32 50 01/30/18 12:46 69 32 98 Mechanical Ventilator 50 01/30/18 12:46 50 01/30/18 12:36 31 Endotracheal Tube 50 01/30/18 12:30 70 25 128/67 (87) 99 01/30/18 12:00 Mechanical Ventilator 01/30/18 12:00 23 Mechanical Ventilator 50 01/30/18 12:00 50 01/30/18 12:00 98.7 68 23 128/67 (87) 98 01/30/18 12:00 71 01/30/18 11:30 69 25 148/66 (93) 98 01/30/18 11:00 70 29 148/66 (93) 98 01/30/18 11:00 16 Mechanical Ventilator 50 01/30/18 10:42 70 32 50 01/30/18 10:00 83 25 129/57 (81) 98 01/30/18 10:00 25 Mechanical Ventilator 50 01/30/18 09:57 80 138/60 Status: awake Condition: critical HEENT: atraumatic Lungs: rhonchi Heart: HR/BP stable Abdomen: soft, non-tender, active bowel sounds Extremities: no C/C/E Decubiti: location - sacral 2, b knees and elbows Micro: Microbiology Date/Time Source Procedure Growth Status 01/29/18 12:10 Sputum Expectorated Gram Stain - Final Resulted 01/29/18 12:10 Sputum Culture - Preliminary Gram Negative Bacillus 1 Resulted Blood Sugars: BS controlled Critical Care - Subjective ROS Limited/Unobtainable: Yes ICU Day: 6 Intubation Day: 6 Interval Events: Fent held, PEEP down to 5, FiO2 60 but SaO2 98% No sig secretions Doron TF's Condition: critical IV Access: peripheral EKG Rhythm: Sinus Rhythm FI02: 60 Vent Support Breath Rate: 30 Vent Support Mode: AC Vent Tidal Volume: 600 Sputum Amount: Scant PEEP: 5.0 PIP: 25 Secretions: no sig Drips: NS@50 Tube Feeding Amount: 35 I&O: Intake and Output 01/30/18 01/31/18 19:00 07:00 Intake Total 1079.562 ml 1614.000 ml Output Total 815 ml 580 ml Balance 264.562 ml 1034.000 ml Intake Oral 0 ml Free Water 50 ml 60 ml IV Total 969.562 ml 1244.000 ml Tube Feeding 60 ml 310 ml Output Urine Total 815 ml 580 ml Subjective: IRENE ET-Tube: 7.5 ET Position: 23 Labs: Laboratory Tests Test 01/30/18 14:25 01/31/18 03:30 Arterial Blood pH 7.333 (7.350-7.450) Arterial Blood Partial Pressure CO2 52.1 mmHg (35.0-45.0) H Arterial Blood Partial Pressure O2 64.9 mmHg (75.0-100.0) L Arterial Blood HCO3 27.0 mmol/L (22.0-26.0) H Arterial Blood Oxygen Saturation 91.8 % (95-100) L Arterial Blood Base Excess 0.5 (-2-2) Dima Test Positive White Blood Count 11.9 K/UL (4.8-10.8) H Red Blood Count 3.33 M/UL (4.70-6.10) L Hemoglobin 10.5 G/DL (14.2-18.0) L Hematocrit 32.2 % (42.0-52.0) L Mean Corpuscular Volume 97 FL (80-99) Mean Corpuscular Hemoglobin 31.6 PG (27.0-31.0) H Mean Corpuscular Hemoglobin Concent 32.6 G/DL (32.0-36.0) Red Cell Distribution Width 13.0 % (11.6-14.8) Platelet Count 164 K/UL (150-450) Mean Platelet Volume 8.3 FL (6.5-10.1) Neutrophils (%) (Auto) % (45.0-75.0) Lymphocytes (%) (Auto) % (20.0-45.0) Monocytes (%) (Auto) % (1.0-10.0) Eosinophils (%) (Auto) % (0.0-3.0) Basophils (%) (Auto) % (0.0-2.0) Sodium Level 146 MMOL/L (136-145) H Potassium Level 4.2 MMOL/L (3.5-5.1) Chloride Level 112 MMOL/L (98-107) H Carbon Dioxide Level 30 MMOL/L (21-32) Anion Gap 4 mmol/L (5-15) L Blood Urea Nitrogen 37 mg/dL (7-18) H Creatinine 0.9 MG/DL (0.55-1.30) Estimat Glomerular Filtration Rate mL/min (>60) Glucose Level 128 MG/DL (74-106) H Calcium Level 8.0 MG/DL (8.5-10.1) L Phosphorus Level 2.8 MG/DL (2.5-4.9) Magnesium Level 2.0 MG/DL (1.8-2.4) Total Bilirubin 0.8 MG/DL (0.2-1.0) Aspartate Amino Transf (AST/SGOT) 16 U/L (15-37) Alanine Aminotransferase (ALT/SGPT) 15 U/L (12-78) Alkaline Phosphatase 76 U/L (46-116) Total Protein 5.7 G/DL (6.4-8.2) L Albumin 1.4 G/DL (3.4-5.0) L Globulin 4.3 g/dL Albumin/Globulin Ratio 0.3 (1.0-2.7) L Lev Johnson MD Jan 31, 2018 09:57
--- NOTE | 2018-01-31 10:22 | Cardiac Electrophysiology PN ---
Assessment/Plan Assessment/Plan 1. Troponin Leak. The levels are flat. Likely due to the respiratory failure and azotemia. Echo normal LVEF 2. Respiratory failure, due to PNA and CHF. The patient is on the ventilator. Antibiotic per ID Continue to wean per Dr. Johnson. Hopefully extubate today 3. Hypokalemia, potassium was replaced. 4. Azotemia. Sodium is 147. FU Dr Mclaughlin 5. Elevated bilirubin of 2.3. Down to 1.1 DW RN Subjective Subjective In ICU on the Vent.Off fentanyl drip. In SR overnight.Being weaned. Hopefully extubate today Objective Last 24 Hour Vital Signs Date Time Temp Pulse Resp B/P (MAP) Pulse Ox O2 Delivery O2 Flow Rate FiO2 01/31/18 10:00 70 31 149/67 (94) 94 01/31/18 10:00 78 30 155/68 (97) 94 01/31/18 09:44 95 30 01/31/18 09:43 60 01/31/18 09:21 73 30 01/31/18 09:15 60 01/31/18 09:00 70 31 149/67 (94) 94 01/31/18 08:59 71 31 60 01/31/18 08:24 82 148/74 01/31/18 08:00 Mechanical Ventilator 01/31/18 08:00 98.5 85 30 148/74 (98) 99 01/31/18 07:08 74 32 40 01/31/18 07:00 75 27 145/71 (95) 95 01/31/18 06:00 75 27 140/62 (88) 96 01/31/18 05:45 74 27 147/63 (91) 96 01/31/18 05:30 74 27 137/62 (87) 96 01/31/18 05:15 72 27 123/54 (77) 96 01/31/18 05:11 72 31 40 01/31/18 05:00 74 27 137/61 (86) 96 01/31/18 05:00 26 Mechanical Ventilator 60 01/31/18 04:45 76 24 130/74 (92) 94 01/31/18 04:30 76 24 137/67 (90) 94 01/31/18 04:15 76 27 137/67 (90) 94 01/31/18 04:00 76 01/31/18 04:00 60 12/11/18 04:00 98.0 79 24 145/73 (97) 94 01/31/18 04:00 25 Mechanical Ventilator 40 01/31/18 04:00 Mechanical Ventilator 01/31/18 03:30 94 26 152/79 (103) 94 01/31/18 03:00 25 Mechanical Ventilator 60 01/31/18 03:00 100 30 115/56 (75) 93 01/31/18 02:45 100 30 115/56 (75) 93 01/31/18 02:45 102 30 40 01/31/18 02:30 84 30 114/56 (75) 93 01/31/18 02:15 95 30 105/58 (74) 94 01/31/18 02:00 92 32 159/74 (102) 91 01/31/18 02:00 28 Mechanical Ventilator 60 01/31/18 01:30 85 31 167/87 (113) 87 01/31/18 01:23 81 30 40 01/31/18 01:10 Mechanical Ventilator 01/31/18 01:10 Mechanical Ventilator 01/31/18 01:03 81 30 40 01/31/18 01:00 26 Mechanical Ventilator 40 01/31/18 01:00 78 30 114/76 (89) 98 01/31/18 00:30 79 23 160/73 (102) 95 01/31/18 00:00 60 01/31/18 00:00 98 01/31/18 00:00 Mechanical Ventilator 01/31/18 00:00 26 Mechanical Ventilator 40 01/31/18 00:00 98.5 78 23 153/67 (95) 95 01/30/18 23:30 88 30 40 01/30/18 23:30 77 23 159/89 (112) 90 01/30/18 23:00 75 23 140/60 (86) 95 01/30/18 23:00 25 Mechanical Ventilator 40 01/30/18 22:30 75 23 119/59 (79) 95 01/30/18 22:00 24 Mechanical Ventilator 40 01/30/18 22:00 71 25 139/66 (90) 95 01/30/18 21:30 68 30 40 01/30/18 21:30 71 29 143/62 (89) 93 01/30/18 21:00 77 28 138/56 (83) 92 01/30/18 21:00 25 Mechanical Ventilator 40 01/30/18 20:45 77 28 138/61 (86) 93 01/30/18 20:30 80 26 143/69 (93) 93 01/30/18 20:26 82 133/76 01/30/18 20:15 78 29 133/76 (95) 93 01/30/18 20:00 40 01/30/18 20:00 Mechanical Ventilator 01/30/18 20:00 98.7 78 28 107/88 (94) 93 01/30/18 20:00 79 01/30/18 20:00 23 Mechanical Ventilator 40 01/30/18 19:55 Mechanical Ventilator 01/30/18 19:54 Mechanical Ventilator 50 01/30/18 19:30 77 30 40 01/30/18 19:30 79 25 148/67 (94) 95 01/30/18 19:00 79 25 124/59 (80) 93 01/30/18 19:00 23 Mechanical Ventilator 40 01/30/18 18:30 78 25 135/62 (86) 91 01/30/18 18:05 77 25 150/73 (98) 91 01/30/18 18:00 32 Mechanical Ventilator 40 01/30/18 17:30 76 28 156/62 (93) 93 01/30/18 17:13 89 30 40 01/30/18 17:00 78 23 142/59 (86) 98 01/30/18 17:00 25 Mechanical Ventilator 50 01/30/18 16:30 77 25 146/61 (89) 95 01/30/18 16:00 97.9 79 25 146/61 (89) 94 01/30/18 16:00 23 Mechanical Ventilator 50 01/30/18 16:00 50 01/30/18 16:00 Mechanical Ventilator 01/30/18 16:00 80 01/30/18 15:30 80 26 160/73 (102) 94 01/30/18 15:00 23 Mechanical Ventilator 50 01/30/18 15:00 81 23 117/52 (73) 98 01/30/18 14:36 73 30 50 01/30/18 14:30 72 20 117/52 (73) 100 01/30/18 14:00 74 26 126/51 (76) 97 01/30/18 14:00 26 Mechanical Ventilator 50 01/30/18 13:30 72 26 123/53 (76) 97 01/30/18 13:00 70 23 131/68 (89) 96 01/30/18 13:00 23 Mechanical Ventilator 50 01/30/18 12:51 72 32 99 Mechanical Ventilator 50 01/30/18 12:50 71 32 50 01/30/18 12:46 69 32 98 Mechanical Ventilator 50 01/30/18 12:46 50 01/30/18 12:36 31 Endotracheal Tube 50 01/30/18 12:30 70 25 128/67 (87) 99 01/30/18 12:00 Mechanical Ventilator 01/30/18 12:00 23 Mechanical Ventilator 50 01/30/18 12:00 50 01/30/18 12:00 98.7 68 23 128/67 (87) 98 01/30/18 12:00 71 01/30/18 11:30 69 25 148/66 (93) 98 01/30/18 11:00 70 29 148/66 (93) 98 01/30/18 11:00 16 Mechanical Ventilator 50 01/30/18 10:42 70 32 50 Intake and Output 01/30/18 01/31/18 18:59 06:59 Intake Total 1068.562 ml 1599.000 ml Output Total 875 ml 550 ml Balance 193.562 ml 1049.000 ml Intake Oral 0 ml Free Water 50 ml 60 ml IV Total 973.562 ml 1249.000 ml Tube Feeding 45 ml 290 ml Output Urine Total 875 ml 550 ml Laboratory Tests Test 01/30/18 14:25 01/31/18 03:30 Arterial Blood pH 7.333 (7.350-7.450) Arterial Blood Partial Pressure CO2 52.1 mmHg (35.0-45.0) H Arterial Blood Partial Pressure O2 64.9 mmHg (75.0-100.0) L Arterial Blood HCO3 27.0 mmol/L (22.0-26.0) H Arterial Blood Oxygen Saturation 91.8 % (95-100) L Arterial Blood Base Excess 0.5 (-2-2) Dima Test Positive White Blood Count 11.9 K/UL (4.8-10.8) H Red Blood Count 3.33 M/UL (4.70-6.10) L Hemoglobin 10.5 G/DL (14.2-18.0) L Hematocrit 32.2 % (42.0-52.0) L Mean Corpuscular Volume 97 FL (80-99) Mean Corpuscular Hemoglobin 31.6 PG (27.0-31.0) H Mean Corpuscular Hemoglobin Concent 32.6 G/DL (32.0-36.0) Red Cell Distribution Width 13.0 % (11.6-14.8) Platelet Count 164 K/UL (150-450) Mean Platelet Volume 8.3 FL (6.5-10.1) Neutrophils (%) (Auto) % (45.0-75.0) Lymphocytes (%) (Auto) % (20.0-45.0) Monocytes (%) (Auto) % (1.0-10.0) Eosinophils (%) (Auto) % (0.0-3.0) Basophils (%) (Auto) % (0.0-2.0) Sodium Level 146 MMOL/L (136-145) H Potassium Level 4.2 MMOL/L (3.5-5.1) Chloride Level 112 MMOL/L (98-107) H Carbon Dioxide Level 30 MMOL/L (21-32) Anion Gap 4 mmol/L (5-15) L Blood Urea Nitrogen 37 mg/dL (7-18) H Creatinine 0.9 MG/DL (0.55-1.30) Estimat Glomerular Filtration Rate mL/min (>60) Glucose Level 128 MG/DL (74-106) H Calcium Level 8.0 MG/DL (8.5-10.1) L Phosphorus Level 2.8 MG/DL (2.5-4.9) Magnesium Level 2.0 MG/DL (1.8-2.4) Total Bilirubin 0.8 MG/DL (0.2-1.0) Aspartate Amino Transf (AST/SGOT) 16 U/L (15-37) Alanine Aminotransferase (ALT/SGPT) 15 U/L (12-78) Alkaline Phosphatase 76 U/L (46-116) Total Protein 5.7 G/DL (6.4-8.2) L Albumin 1.4 G/DL (3.4-5.0) L Globulin 4.3 g/dL Albumin/Globulin Ratio 0.3 (1.0-2.7) L Microbiology Date/Time Source Procedure Growth Status 01/29/18 12:10 Sputum Expectorated Gram Stain - Final Resulted 01/29/18 12:10 Sputum Culture - Preliminary Gram Negative Bacillus 1 Resulted Objective HEAD AND NECK: No JVD, orally intubated. LUNGS: Coarse rhonchi bilaterally. CARDIOVASCULAR: Regular S1 and S2 with no murmur. ABDOMEN: Soft. EXTREMITIES: No pitting edema, Josep Brar MD Jan 31, 2018 10:22
[2018-01-31] MEDS: Vancomycin 1gm in D5W 275ml IVPB SCH ×2 (11:17→23:17)
--- NOTE | 2018-01-31 11:56 | General Progress Note ---
Assessment/Plan Assessment/Plan ASSESSMENT AND RECOMMENDATIONS # Leukocytosis. Secondary to sepsis and pna. is on abx at this time --> WBC improving --> Peripheral has been ordered and reviewed and no blasts are noted --> Medications have been reviewed --> Imaging has been reviewed, reveals apparent worsening of bilateral parenchymal disease --> Blood cultures and urine cultures are reviewed --> has been started on abx, empiric treatment --> lactic acid 2.4--> 2.1-->1.7 # Anemia of chronic disease due to underlying chronic medical issues, multifactorial. --> Given downtrending hgb, will order a anemia panel --> Cont to monitor for stability --> hgb 13-->11.2-->11 # Coagulopathy is now off hep gtt --> order hepatitis and hiv --> pt and mixing study # Pneumonia. # Urinary tract infection. --> s/p abx # Status post recurrent falls. # Sepsis. # Dehydration. # Afib and now in sr --> as per cards # Respiratory failure is on a vent --> per pulm GREATLY APPRECIATE CONSULTATION. Subjective Date patient seen: Jan 31, 2018 ROS Limited/Unobtainable: Yes Hematologic/Lymphatic: Reports: anemia Allergies: Coded Allergies: No Known Allergies (Unverified , 01/24/18) Subjective Pt remains in ICU, on vent. No acute events. WBC improving. Objective Last 24 Hour Vital Signs Date Time Temp Pulse Resp B/P (MAP) Pulse Ox O2 Delivery O2 Flow Rate FiO2 01/31/18 10:32 67 38 60 01/31/18 10:00 70 31 149/67 (94) 94 01/31/18 10:00 78 30 155/68 (97) 94 01/31/18 09:44 95 30 01/31/18 09:43 60 01/31/18 09:21 73 30 01/31/18 09:15 60 01/31/18 09:03 92 01/31/18 09:00 70 31 149/67 (94) 94 01/31/18 08:59 71 31 60 01/31/18 08:24 82 148/74 01/31/18 08:00 Mechanical Ventilator 01/31/18 08:00 98.5 85 30 148/74 (98) 99 01/31/18 07:08 74 32 40 01/31/18 07:00 75 27 145/71 (95) 95 01/31/18 06:00 75 27 140/62 (88) 96 01/31/18 05:45 74 27 147/63 (91) 96 01/31/18 05:30 74 27 137/62 (87) 96 01/31/18 05:15 72 27 123/54 (77) 96 01/31/18 05:11 72 31 40 01/31/18 05:00 74 27 137/61 (86) 96 01/31/18 05:00 26 Mechanical Ventilator 60 01/31/18 04:45 76 24 130/74 (92) 94 01/31/18 04:30 76 24 137/67 (90) 94 01/31/18 04:15 76 27 137/67 (90) 94 01/31/18 04:00 76 01/31/18 04:00 60 01/31/18 04:00 98.0 79 24 145/73 (97) 94 01/31/18 04:00 25 Mechanical Ventilator 40 01/31/18 04:00 Mechanical Ventilator 01/31/18 03:30 94 26 152/79 (103) 94 01/31/18 03:00 25 Mechanical Ventilator 60 01/31/18 03:00 100 30 115/56 (75) 93 01/31/18 02:45 100 30 115/56 (75) 93 01/31/18 02:45 102 30 40 01/31/18 02:30 84 30 114/56 (75) 93 01/31/18 02:15 95 30 105/58 (74) 94 01/31/18 02:00 92 32 159/74 (102) 91 01/31/18 02:00 28 Mechanical Ventilator 60 01/31/18 01:30 85 31 167/87 (113) 87 01/31/18 01:23 81 30 40 01/31/18 01:10 Mechanical Ventilator 01/31/18 01:10 Mechanical Ventilator 01/31/18 01:03 81 30 40 01/31/18 01:00 26 Mechanical Ventilator 40 01/31/18 01:00 78 30 114/76 (89) 98 01/31/18 00:30 79 23 160/73 (102) 95 01/31/18 00:00 60 01/31/18 00:00 98 01/31/18 00:00 Mechanical Ventilator 01/31/18 00:00 26 Mechanical Ventilator 40 01/31/18 00:00 98.5 78 23 153/67 (95) 95 01/30/18 23:30 88 30 40 01/30/18 23:30 77 23 159/89 (112) 90 01/30/18 23:00 75 23 140/60 (86) 95 01/30/18 23:00 25 Mechanical Ventilator 40 01/30/18 22:30 75 23 119/59 (79) 95 01/30/18 22:00 24 Mechanical Ventilator 40 01/30/18 22:00 71 25 139/66 (90) 95 01/30/18 21:30 68 30 40 01/30/18 21:30 71 29 143/62 (89) 93 01/30/18 21:00 77 28 138/56 (83) 92 01/30/18 21:00 25 Mechanical Ventilator 40 01/30/18 20:45 77 28 138/61 (86) 93 01/30/18 20:30 80 26 143/69 (93) 93 01/30/18 20:26 82 133/76 01/30/18 20:15 78 29 133/76 (95) 93 01/30/18 20:00 40 01/30/18 20:00 Mechanical Ventilator 01/30/18 20:00 98.7 78 28 107/88 (94) 93 01/30/18 20:00 79 01/30/18 20:00 23 Mechanical Ventilator 40 01/30/18 19:55 Mechanical Ventilator 01/30/18 19:54 Mechanical Ventilator 50 01/30/18 19:30 77 30 40 01/30/18 19:30 79 25 148/67 (94) 95 01/30/18 19:00 79 25 124/59 (80) 93 01/30/18 19:00 23 Mechanical Ventilator 40 01/30/18 18:30 78 25 135/62 (86) 91 01/30/18 18:05 77 25 150/73 (98) 91 01/30/18 18:00 32 Mechanical Ventilator 40 01/30/18 17:30 76 28 156/62 (93) 93 01/30/18 17:13 89 30 40 01/30/18 17:00 78 23 142/59 (86) 98 01/30/18 17:00 25 Mechanical Ventilator 50 01/30/18 16:30 77 25 146/61 (89) 95 01/30/18 16:00 97.9 79 25 146/61 (89) 94 01/30/18 16:00 23 Mechanical Ventilator 50 01/30/18 16:00 50 01/30/18 16:00 Mechanical Ventilator 01/30/18 16:00 80 01/30/18 15:30 80 26 160/73 (102) 94 01/30/18 15:00 23 Mechanical Ventilator 50 01/30/18 15:00 81 23 117/52 (73) 98 01/30/18 14:36 73 30 50 01/30/18 14:30 72 20 117/52 (73) 100 01/30/18 14:00 74 26 126/51 (76) 97 01/30/18 14:00 26 Mechanical Ventilator 50 01/30/18 13:30 72 26 123/53 (76) 97 01/30/18 13:00 70 23 131/68 (89) 96 01/30/18 13:00 23 Mechanical Ventilator 50 01/30/18 12:51 72 32 99 Mechanical Ventilator 50 01/30/18 12:50 71 32 50 01/30/18 12:46 69 32 98 Mechanical Ventilator 50 01/30/18 12:46 50 01/30/18 12:36 31 Endotracheal Tube 50 01/30/18 12:30 70 25 128/67 (87) 99 01/30/18 12:00 Mechanical Ventilator 01/30/18 12:00 23 Mechanical Ventilator 50 01/30/18 12:00 50 01/30/18 12:00 98.7 68 23 128/67 (87) 98 01/30/18 12:00 71 Intake and Output 01/30/18 01/31/18 19:00 07:00 Intake Total 1079.562 ml 1614.000 ml Output Total 815 ml 580 ml Balance 264.562 ml 1034.000 ml Intake Oral 0 ml Free Water 50 ml 60 ml IV Total 969.562 ml 1244.000 ml Tube Feeding 60 ml 310 ml Output Urine Total 815 ml 580 ml Laboratory Tests 01/30/18 14:25: Arterial Blood pH 7.333L, Arterial Blood Partial Pressure CO2 52.1H, Arterial Blood Partial Pressure O2 64.9L, Arterial Blood HCO3 27.0H, Arterial Blood Oxygen Saturation 91.8L, Arterial Blood Base Excess 0.5, Dima Test Positive 01/31/18 03:30: White Blood Count 11.9H, Red Blood Count 3.33L, Hemoglobin 10.5L, Hematocrit 32.2L, Mean Corpuscular Volume 97, Mean Corpuscular Hemoglobin 31.6H, Mean Corpuscular Hemoglobin Concent 32.6, Red Cell Distribution Width 13.0, Platelet Count 164, Mean Platelet Volume 8.3, Neutrophils (%) (Auto) , Lymphocytes (%) ( Auto) , Monocytes (%) (Auto) , Eosinophils (%) (Auto) , Basophils (%) (Auto) , Sodium Level 146H, Potassium Level 4.2, Chloride Level 112H, Carbon Dioxide Level 30, Anion Gap 4L, Blood Urea Nitrogen 37H, Creatinine 0.9, Estimat Glomerular Filtration Rate , Glucose Level 128H, Calcium Level 8.0L, Phosphorus Level 2.8, Magnesium Level 2.0, Total Bilirubin 0.8, Aspartate Amino Transf (AST /SGOT) 16, Alanine Aminotransferase (ALT/SGPT) 15, Alkaline Phosphatase 76, Total Protein 5.7L, Albumin 1.4L, Globulin 4.3, Albumin/Globulin Ratio 0.3L Height (Feet): 5 Height (Inches): 9.00 Weight (Pounds): 171 General Appearance: no apparent distress Objective on vent++ Fabian Yung MD Jan 31, 2018 11:56
--- NOTE | 2018-01-31 12:01 | Infectious Diseases Prog Note ---
Assessment/Plan Assessment/Plan A: 1. Sepsis 2. Hypoxemic respiratory failure 3. Acute renal failure. 4. Lactic acidosis. 5. Increase in bilirubin, s/p cholecystectomy 6. Pulmonary fibrosis 7. Pulmonary hypertension 8.troponin leak P; Continue Cefepime , discontinue Zithromax Will f/u sputum culture Subjective ROS Limited/Unobtainable: Yes Constitutional: Reports: no symptoms Respiratory: Reports: other - failed weaning Allergies: Coded Allergies: No Known Allergies (Unverified , 01/24/18) Objective Vital Signs Last 24 Hour Vital Signs Date Time Temp Pulse Resp B/P (MAP) Pulse Ox O2 Delivery O2 Flow Rate FiO2 01/31/18 10:32 67 38 60 01/31/18 10:00 70 31 149/67 (94) 94 01/31/18 10:00 78 30 155/68 (97) 94 01/31/18 09:44 95 30 01/31/18 09:43 60 01/31/18 09:21 73 30 01/31/18 09:15 60 01/31/18 09:03 92 01/31/18 09:00 70 31 149/67 (94) 94 01/31/18 08:59 71 31 60 01/31/18 08:24 82 148/74 01/31/18 08:00 Mechanical Ventilator 01/31/18 08:00 98.5 85 30 148/74 (98) 99 01/31/18 07:08 74 32 40 01/31/18 07:00 75 27 145/71 (95) 95 01/31/18 06:00 75 27 140/62 (88) 96 01/31/18 05:45 74 27 147/63 (91) 96 01/31/18 05:30 74 27 137/62 (87) 96 01/31/18 05:15 72 27 123/54 (77) 96 01/31/18 05:11 72 31 40 01/31/18 05:00 74 27 137/61 (86) 96 01/31/18 05:00 26 Mechanical Ventilator 60 01/31/18 04:45 76 24 130/74 (92) 94 01/31/18 04:30 76 24 137/67 (90) 94 01/31/18 04:15 76 27 137/67 (90) 94 01/31/18 04:00 76 01/31/18 04:00 60 12/11/18 04:00 98.0 79 24 145/73 (97) 94 01/31/18 04:00 25 Mechanical Ventilator 40 01/31/18 04:00 Mechanical Ventilator 01/31/18 03:30 94 26 152/79 (103) 94 01/31/18 03:00 25 Mechanical Ventilator 60 01/31/18 03:00 100 30 115/56 (75) 93 01/31/18 02:45 100 30 115/56 (75) 93 01/31/18 02:45 102 30 40 01/31/18 02:30 84 30 114/56 (75) 93 01/31/18 02:15 95 30 105/58 (74) 94 01/31/18 02:00 92 32 159/74 (102) 91 01/31/18 02:00 28 Mechanical Ventilator 60 01/31/18 01:30 85 31 167/87 (113) 87 01/31/18 01:23 81 30 40 01/31/18 01:10 Mechanical Ventilator 01/31/18 01:10 Mechanical Ventilator 01/31/18 01:03 81 30 40 01/31/18 01:00 26 Mechanical Ventilator 40 01/31/18 01:00 78 30 114/76 (89) 98 01/31/18 00:30 79 23 160/73 (102) 95 01/31/18 00:00 60 01/31/18 00:00 98 01/31/18 00:00 Mechanical Ventilator 01/31/18 00:00 26 Mechanical Ventilator 40 01/31/18 00:00 98.5 78 23 153/67 (95) 95 01/30/18 23:30 88 30 40 01/30/18 23:30 77 23 159/89 (112) 90 01/30/18 23:00 75 23 140/60 (86) 95 01/30/18 23:00 25 Mechanical Ventilator 40 01/30/18 22:30 75 23 119/59 (79) 95 01/30/18 22:00 24 Mechanical Ventilator 40 01/30/18 22:00 71 25 139/66 (90) 95 01/30/18 21:30 68 30 40 01/30/18 21:30 71 29 143/62 (89) 93 01/30/18 21:00 77 28 138/56 (83) 92 01/30/18 21:00 25 Mechanical Ventilator 40 01/30/18 20:45 77 28 138/61 (86) 93 01/30/18 20:30 80 26 143/69 (93) 93 01/30/18 20:26 82 133/76 01/30/18 20:15 78 29 133/76 (95) 93 01/30/18 20:00 40 01/30/18 20:00 Mechanical Ventilator 01/30/18 20:00 98.7 78 28 107/88 (94) 93 01/30/18 20:00 79 01/30/18 20:00 23 Mechanical Ventilator 40 01/30/18 19:55 Mechanical Ventilator 01/30/18 19:54 Mechanical Ventilator 50 01/30/18 19:30 77 30 40 01/30/18 19:30 79 25 148/67 (94) 95 01/30/18 19:00 79 25 124/59 (80) 93 01/30/18 19:00 23 Mechanical Ventilator 40 01/30/18 18:30 78 25 135/62 (86) 91 01/30/18 18:05 77 25 150/73 (98) 91 01/30/18 18:00 32 Mechanical Ventilator 40 01/30/18 17:30 76 28 156/62 (93) 93 01/30/18 17:13 89 30 40 01/30/18 17:00 78 23 142/59 (86) 98 01/30/18 17:00 25 Mechanical Ventilator 50 01/30/18 16:30 77 25 146/61 (89) 95 01/30/18 16:00 97.9 79 25 146/61 (89) 94 01/30/18 16:00 23 Mechanical Ventilator 50 01/30/18 16:00 50 01/30/18 16:00 Mechanical Ventilator 01/30/18 16:00 80 01/30/18 15:30 80 26 160/73 (102) 94 01/30/18 15:00 23 Mechanical Ventilator 50 01/30/18 15:00 81 23 117/52 (73) 98 01/30/18 14:36 73 30 50 01/30/18 14:30 72 20 117/52 (73) 100 01/30/18 14:00 74 26 126/51 (76) 97 01/30/18 14:00 26 Mechanical Ventilator 50 12/10/18 13:30 72 26 123/53 (76) 97 01/30/18 13:00 70 23 131/68 (89) 96 01/30/18 13:00 23 Mechanical Ventilator 50 01/30/18 12:51 72 32 99 Mechanical Ventilator 50 01/30/18 12:50 71 32 50 01/30/18 12:46 69 32 98 Mechanical Ventilator 50 01/30/18 12:46 50 01/30/18 12:36 31 Endotracheal Tube 50 01/30/18 12:30 70 25 128/67 (87) 99 01/30/18 12:00 Mechanical Ventilator 01/30/18 12:00 23 Mechanical Ventilator 50 01/30/18 12:00 50 01/30/18 12:00 98.7 68 23 128/67 (87) 98 01/30/18 12:00 71 Height (Feet): 5 Height (Inches): 9.00 Weight (Pounds): 171 HEENT: mucous membranes moist, other - orally intubated Respiratory/Chest: decreased breath sounds, other - on ventilator Cardiovascular: normal rate Abdomen: soft, non tender Extremities: other - edema of hands Neurologic/Psychiatric: alert, other - on restraint Microbiology Date/Time Source Procedure Growth Status 01/29/18 12:10 Sputum Expectorated Gram Stain - Final Resulted 01/29/18 12:10 Sputum Culture - Preliminary Gram Negative Bacillus 1 Resulted Laboratory Tests Test 01/30/18 14:25 01/31/18 03:30 Arterial Blood pH 7.333 (7.350-7.450) Arterial Blood Partial Pressure CO2 52.1 mmHg (35.0-45.0) H Arterial Blood Partial Pressure O2 64.9 mmHg (75.0-100.0) L Arterial Blood HCO3 27.0 mmol/L (22.0-26.0) H Arterial Blood Oxygen Saturation 91.8 % (95-100) L Arterial Blood Base Excess 0.5 (-2-2) Dima Test Positive White Blood Count 11.9 K/UL (4.8-10.8) H Red Blood Count 3.33 M/UL (4.70-6.10) L Hemoglobin 10.5 G/DL (14.2-18.0) L Hematocrit 32.2 % (42.0-52.0) L Mean Corpuscular Volume 97 FL (80-99) Mean Corpuscular Hemoglobin 31.6 PG (27.0-31.0) H Mean Corpuscular Hemoglobin Concent 32.6 G/DL (32.0-36.0) Red Cell Distribution Width 13.0 % (11.6-14.8) Platelet Count 164 K/UL (150-450) Mean Platelet Volume 8.3 FL (6.5-10.1) Neutrophils (%) (Auto) % (45.0-75.0) Lymphocytes (%) (Auto) % (20.0-45.0) Monocytes (%) (Auto) % (1.0-10.0) Eosinophils (%) (Auto) % (0.0-3.0) Basophils (%) (Auto) % (0.0-2.0) Sodium Level 146 MMOL/L (136-145) H Potassium Level 4.2 MMOL/L (3.5-5.1) Chloride Level 112 MMOL/L (98-107) H Carbon Dioxide Level 30 MMOL/L (21-32) Anion Gap 4 mmol/L (5-15) L Blood Urea Nitrogen 37 mg/dL (7-18) H Creatinine 0.9 MG/DL (0.55-1.30) Estimat Glomerular Filtration Rate mL/min (>60) Glucose Level 128 MG/DL (74-106) H Calcium Level 8.0 MG/DL (8.5-10.1) L Phosphorus Level 2.8 MG/DL (2.5-4.9) Magnesium Level 2.0 MG/DL (1.8-2.4) Total Bilirubin 0.8 MG/DL (0.2-1.0) Aspartate Amino Transf (AST/SGOT) 16 U/L (15-37) Alanine Aminotransferase (ALT/SGPT) 15 U/L (12-78) Alkaline Phosphatase 76 U/L (46-116) Total Protein 5.7 G/DL (6.4-8.2) L Albumin 1.4 G/DL (3.4-5.0) L Globulin 4.3 g/dL Albumin/Globulin Ratio 0.3 (1.0-2.7) L Current Medications Medications (Trade) Dose Ordered Sig/Chaka Route PRN Reason Start Time Stop Time Status Last Admin Dose Admin Acetaminophen (Tylenol) 650 mg PRN PRN RECTAL Prn Headache/Temp > 101 12/6/18 22:15 02/23/18 22:14 01/28/18 20:35 Azithromycin 250 mg/Dextrose 275 ml @ 275 mls/hr Q24HRS IV 01/26/18 20:00 02/01/18 20:59 01/30/18 20:36 Cefepime HCl 1 gm/ Dextrose 55 ml @ 110 mls/hr Q12HR@1000,2200 IVPB 01/30/18 10:00 02/06/18 09:59 01/31/18 09:48 Dextrose/Sodium Chloride 1,000 ml @ 50 mls/hr Q20H IV 01/29/18 10:15 02/28/18 10:14 01/30/18 22:13 Diphenhydramine HCl (Benadryl) 25 mg Q6H PRN IVP Itching 01/26/18 22:15 02/25/18 22:14 Famotidine (Pepcid I.v.) 20 mg Q12HR IVP 01/26/18 10:00 02/24/18 09:59 01/31/18 08:25 Fentanyl Citrate 1000 mcg/Sodium Chloride 100 ml @ 0 mls/hr Q24H IV 01/26/18 10:30 02/02/18 10:29 01/30/18 12:36 Haloperidol Lactate (Haldol) 5 mg Q6H PRN IM Agitation 01/27/18 13:00 02/26/18 12:59 Heparin Sodium (Porcine) (Heparin 5000 units/ml) 5,000 units EVERY 12 HOURS SUBQ 01/27/18 21:00 02/26/18 20:59 01/31/18 08:26 Magnesium Hydroxide (Mom) 30 ml DAILYPRN PRN ORAL Constipation 01/30/18 14:15 03/01/18 14:14 01/30/18 20:26 Metoprolol Tartrate (Lopressor) 25 mg Q12HR ORAL 01/26/18 21:00 02/25/18 20:59 01/31/18 08:24 Midazolam HCl (Versed 2mg/2ml vial) 2 mg EVERY 4 HOURS PRN IVP For Anxiety 01/26/18 10:00 02/25/18 09:59 01/31/18 02:23 Olanzapine (ZyPREXA) 2.5 mg BEDTIME PRN ORAL agitation 01/26/18 21:00 02/25/18 20:59 Ondansetron HCl (Zofran) 4 mg Q6H PRN IVP Nausea & Vomiting 01/26/18 22:15 02/25/18 22:14 Vancomycin HCl (Vanco rx to dose) 1 ea DAILY PRN MISC Per rx protocol 01/26/18 09:45 02/01/18 23:59 Vancomycin HCl 1 gm/Dextrose 275 ml @ 183.708 mls/hr Q12H IVPB 01/26/18 11:00 02/01/18 23:59 01/31/18 11:17 Ha Tello MD Jan 31, 2018 12:01
--- NOTE | 2018-01-31 12:05 | General Progress Note ---
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 (2) UTI (urinary tract infection) ICD Codes: N39.0 - Urinary tract infection, site not specified SNOMED: 47808950, [id number] Qualifiers: Qualified Codes: N39.0 - Urinary tract infection, site not specified (3) Severe sepsis ICD Codes: A41.9 - Sepsis, unspecified organism; R65.20 - Severe sepsis without septic shock SNOMED: 54603417 Status: unchanged Assessment/Plan cont Haldol the family should make decisions the pt lacks capacity provided ro/st Subjective Neurologic/Psychiatric: Reports: anxiety Allergies: Coded Allergies: No Known Allergies (Unverified , 01/24/18) Subjective the pt is the same agitated confused and disoriented Objective Last 24 Hour Vital Signs Date Time Temp Pulse Resp B/P (MAP) Pulse Ox O2 Delivery O2 Flow Rate FiO2 01/31/18 10:32 67 38 60 01/31/18 10:00 70 31 149/67 (94) 94 01/31/18 10:00 78 30 155/68 (97) 94 01/31/18 09:44 95 30 01/31/18 09:43 60 01/31/18 09:21 73 30 01/31/18 09:15 60 01/31/18 09:03 92 01/31/18 09:00 70 31 149/67 (94) 94 01/31/18 08:59 71 31 60 01/31/18 08:24 82 148/74 01/31/18 08:00 Mechanical Ventilator 01/31/18 08:00 98.5 85 30 148/74 (98) 99 01/31/18 07:08 74 32 40 01/31/18 07:00 75 27 145/71 (95) 95 01/31/18 06:00 75 27 140/62 (88) 96 01/31/18 05:45 74 27 147/63 (91) 96 01/31/18 05:30 74 27 137/62 (87) 96 01/31/18 05:15 72 27 123/54 (77) 96 01/31/18 05:11 72 31 40 01/31/18 05:00 74 27 137/61 (86) 96 01/31/18 05:00 26 Mechanical Ventilator 60 01/31/18 04:45 76 24 130/74 (92) 94 01/31/18 04:30 76 24 137/67 (90) 94 01/31/18 04:15 76 27 137/67 (90) 94 01/31/18 04:00 76 01/31/18 04:00 60 01/31/18 04:00 98.0 79 24 145/73 (97) 94 01/31/18 04:00 25 Mechanical Ventilator 40 01/31/18 04:00 Mechanical Ventilator 01/31/18 03:30 94 26 152/79 (103) 94 01/31/18 03:00 25 Mechanical Ventilator 60 01/31/18 03:00 100 30 115/56 (75) 93 01/31/18 02:45 100 30 115/56 (75) 93 01/31/18 02:45 102 30 40 01/31/18 02:30 84 30 114/56 (75) 93 01/31/18 02:15 95 30 105/58 (74) 94 01/31/18 02:00 92 32 159/74 (102) 91 01/31/18 02:00 28 Mechanical Ventilator 60 01/31/18 01:30 85 31 167/87 (113) 87 01/31/18 01:23 81 30 40 01/31/18 01:10 Mechanical Ventilator 01/31/18 01:10 Mechanical Ventilator 01/31/18 01:03 81 30 40 01/31/18 01:00 26 Mechanical Ventilator 40 01/31/18 01:00 78 30 114/76 (89) 98 01/31/18 00:30 79 23 160/73 (102) 95 01/31/18 00:00 60 01/31/18 00:00 98 01/31/18 00:00 Mechanical Ventilator 01/31/18 00:00 26 Mechanical Ventilator 40 01/31/18 00:00 98.5 78 23 153/67 (95) 95 01/30/18 23:30 88 30 40 01/30/18 23:30 77 23 159/89 (112) 90 01/30/18 23:00 75 23 140/60 (86) 95 01/30/18 23:00 25 Mechanical Ventilator 40 01/30/18 22:30 75 23 119/59 (79) 95 01/30/18 22:00 24 Mechanical Ventilator 40 01/30/18 22:00 71 25 139/66 (90) 95 01/30/18 21:30 68 30 40 01/30/18 21:30 71 29 143/62 (89) 93 01/30/18 21:00 77 28 138/56 (83) 92 01/30/18 21:00 25 Mechanical Ventilator 40 01/30/18 20:45 77 28 138/61 (86) 93 01/30/18 20:30 80 26 143/69 (93) 93 01/30/18 20:26 82 133/76 01/30/18 20:15 78 29 133/76 (95) 93 01/30/18 20:00 40 01/30/18 20:00 Mechanical Ventilator 01/30/18 20:00 98.7 78 28 107/88 (94) 93 01/30/18 20:00 79 01/30/18 20:00 23 Mechanical Ventilator 40 01/30/18 19:55 Mechanical Ventilator 01/30/18 19:54 Mechanical Ventilator 50 01/30/18 19:30 77 30 40 01/30/18 19:30 79 25 148/67 (94) 95 01/30/18 19:00 79 25 124/59 (80) 93 01/30/18 19:00 23 Mechanical Ventilator 40 01/30/18 18:30 78 25 135/62 (86) 91 01/30/18 18:05 77 25 150/73 (98) 91 01/30/18 18:00 32 Mechanical Ventilator 40 01/30/18 17:30 76 28 156/62 (93) 93 01/30/18 17:13 89 30 40 01/30/18 17:00 78 23 142/59 (86) 98 01/30/18 17:00 25 Mechanical Ventilator 50 01/30/18 16:30 77 25 146/61 (89) 95 01/30/18 16:00 97.9 79 25 146/61 (89) 94 01/30/18 16:00 23 Mechanical Ventilator 50 01/30/18 16:00 50 01/30/18 16:00 Mechanical Ventilator 01/30/18 16:00 80 01/30/18 15:30 80 26 160/73 (102) 94 01/30/18 15:00 23 Mechanical Ventilator 50 01/30/18 15:00 81 23 117/52 (73) 98 01/30/18 14:36 73 30 50 01/30/18 14:30 72 20 117/52 (73) 100 01/30/18 14:00 74 26 126/51 (76) 97 01/30/18 14:00 26 Mechanical Ventilator 50 01/30/18 13:30 72 26 123/53 (76) 97 01/30/18 13:00 70 23 131/68 (89) 96 01/30/18 13:00 23 Mechanical Ventilator 50 01/30/18 12:51 72 32 99 Mechanical Ventilator 50 01/30/18 12:50 71 32 50 01/30/18 12:46 69 32 98 Mechanical Ventilator 50 01/30/18 12:46 50 01/30/18 12:36 31 Endotracheal Tube 50 01/30/18 12:30 70 25 128/67 (87) 99 Intake and Output 01/30/18 01/31/18 19:00 07:00 Intake Total 1079.562 ml 1614.000 ml Output Total 815 ml 580 ml Balance 264.562 ml 1034.000 ml Intake Oral 0 ml Free Water 50 ml 60 ml IV Total 969.562 ml 1244.000 ml Tube Feeding 60 ml 310 ml Output Urine Total 815 ml 580 ml Laboratory Tests 01/30/18 14:25: Arterial Blood pH 7.333L, Arterial Blood Partial Pressure CO2 52.1H, Arterial Blood Partial Pressure O2 64.9L, Arterial Blood HCO3 27.0H, Arterial Blood Oxygen Saturation 91.8L, Arterial Blood Base Excess 0.5, Dima Test Positive 01/31/18 03:30: White Blood Count 11.9H, Red Blood Count 3.33L, Hemoglobin 10.5L, Hematocrit 32.2L, Mean Corpuscular Volume 97, Mean Corpuscular Hemoglobin 31.6H, Mean Corpuscular Hemoglobin Concent 32.6, Red Cell Distribution Width 13.0, Platelet Count 164, Mean Platelet Volume 8.3, Neutrophils (%) (Auto) , Lymphocytes (%) ( Auto) , Monocytes (%) (Auto) , Eosinophils (%) (Auto) , Basophils (%) (Auto) , Sodium Level 146H, Potassium Level 4.2, Chloride Level 112H, Carbon Dioxide Level 30, Anion Gap 4L, Blood Urea Nitrogen 37H, Creatinine 0.9, Estimat Glomerular Filtration Rate , Glucose Level 128H, Calcium Level 8.0L, Phosphorus Level 2.8, Magnesium Level 2.0, Total Bilirubin 0.8, Aspartate Amino Transf (AST /SGOT) 16, Alanine Aminotransferase (ALT/SGPT) 15, Alkaline Phosphatase 76, Total Protein 5.7L, Albumin 1.4L, Globulin 4.3, Albumin/Globulin Ratio 0.3L Height (Feet): 5 Height (Inches): 9.00 Weight (Pounds): 171 General Appearance: lethargic, confused, agitated Neurologic: disoriented, depressed affect Collin Smith MD Jan 31, 2018 12:05
[2018-01-31] MEDS ORDERED: Metoprolol 25mg tab ORAL SCH (12:30)
--- NOTE | 2018-01-31 13:26 | GI Progress Note ---
Assessment/Plan Problems: (1) Constipation ICD Codes: K59.00 - Constipation, unspecified SNOMED: 72719118 (2) Gastroparesis ICD Codes: K31.84 - Gastroparesis SNOMED: 631466489 (3) Abnormal LFTs ICD Codes: R94.5 - Abnormal results of liver function studies SNOMED: 053493682 Status: unchanged Status Narrative Discussed with Dr. Salgado. Assessment/Plan anemia work up reviewed >> folate and iron deficiency NGT present recent KUB >> no acute findings pt has ET tube on mech vent start NGTFs per RD to goal, PEG if necessary low dose erythromycin if needed for gastroparesis OB stool r/o GI bleed monitor H&H, prn transfusions bowel regime >> add colace + miralax ppi folate fu labs The patient was seen and examined at bedside and all new and available data was reviewed in the patients chart. I agree with the above findings, impression and plan. (Patient seen earlier today. Signature stamp does not reflect patient encounter time.). - Peter Salgado MD Subjective Subjective limited Objective Last 24 Hour Vital Signs Date Time Temp Pulse Resp B/P (MAP) Pulse Ox O2 Delivery O2 Flow Rate FiO2 01/31/18 13:13 65 34 60 01/31/18 12:32 106 161/97 01/31/18 10:32 67 38 60 01/31/18 10:00 70 31 149/67 (94) 94 01/31/18 10:00 78 30 155/68 (97) 94 01/31/18 09:44 95 30 01/31/18 09:43 60 01/31/18 09:21 73 30 01/31/18 09:15 60 01/31/18 09:03 92 01/31/18 09:00 70 31 149/67 (94) 94 01/31/18 08:59 71 31 60 01/31/18 08:24 82 148/74 01/31/18 08:00 Mechanical Ventilator 01/31/18 08:00 98.5 85 30 148/74 (98) 99 01/31/18 07:08 74 32 40 01/31/18 07:00 75 27 145/71 (95) 95 01/31/18 06:00 75 27 140/62 (88) 96 01/31/18 05:45 74 27 147/63 (91) 96 01/31/18 05:30 74 27 137/62 (87) 96 01/31/18 05:15 72 27 123/54 (77) 96 01/31/18 05:11 72 31 40 01/31/18 05:00 74 27 137/61 (86) 96 01/31/18 05:00 26 Mechanical Ventilator 60 01/31/18 04:45 76 24 130/74 (92) 94 01/31/18 04:30 76 24 137/67 (90) 94 01/31/18 04:15 76 27 137/67 (90) 94 01/31/18 04:00 76 01/31/18 04:00 60 01/31/18 04:00 98.0 79 24 145/73 (97) 94 01/31/18 04:00 25 Mechanical Ventilator 40 01/31/18 04:00 Mechanical Ventilator 01/31/18 03:30 94 26 152/79 (103) 94 01/31/18 03:00 25 Mechanical Ventilator 60 01/31/18 03:00 100 30 115/56 (75) 93 01/31/18 02:45 100 30 115/56 (75) 93 01/31/18 02:45 102 30 40 01/31/18 02:30 84 30 114/56 (75) 93 01/31/18 02:15 95 30 105/58 (74) 94 01/31/18 02:00 92 32 159/74 (102) 91 01/31/18 02:00 28 Mechanical Ventilator 60 01/31/18 01:30 85 31 167/87 (113) 87 01/31/18 01:23 81 30 40 01/31/18 01:10 Mechanical Ventilator 01/31/18 01:10 Mechanical Ventilator 01/31/18 01:03 81 30 40 01/31/18 01:00 26 Mechanical Ventilator 40 01/31/18 01:00 78 30 114/76 (89) 98 01/31/18 00:30 79 23 160/73 (102) 95 01/31/18 00:00 60 01/31/18 00:00 98 01/31/18 00:00 Mechanical Ventilator 01/31/18 00:00 26 Mechanical Ventilator 40 01/31/18 00:00 98.5 78 23 153/67 (95) 95 01/30/18 23:30 88 30 40 01/30/18 23:30 77 23 159/89 (112) 90 01/30/18 23:00 75 23 140/60 (86) 95 01/30/18 23:00 25 Mechanical Ventilator 40 01/30/18 22:30 75 23 119/59 (79) 95 01/30/18 22:00 24 Mechanical Ventilator 40 01/30/18 22:00 71 25 139/66 (90) 95 01/30/18 21:30 68 30 40 01/30/18 21:30 71 29 143/62 (89) 93 01/30/18 21:00 77 28 138/56 (83) 92 01/30/18 21:00 25 Mechanical Ventilator 40 01/30/18 20:45 77 28 138/61 (86) 93 01/30/18 20:30 80 26 143/69 (93) 93 01/30/18 20:26 82 133/76 01/30/18 20:15 78 29 133/76 (95) 93 01/30/18 20:00 40 01/30/18 20:00 Mechanical Ventilator 01/30/18 20:00 98.7 78 28 107/88 (94) 93 01/30/18 20:00 79 01/30/18 20:00 23 Mechanical Ventilator 40 01/30/18 19:55 Mechanical Ventilator 01/30/18 19:54 Mechanical Ventilator 50 01/30/18 19:30 77 30 40 01/30/18 19:30 79 25 148/67 (94) 95 01/30/18 19:00 79 25 124/59 (80) 93 01/30/18 19:00 23 Mechanical Ventilator 40 01/30/18 18:30 78 25 135/62 (86) 91 01/30/18 18:05 77 25 150/73 (98) 91 01/30/18 18:00 32 Mechanical Ventilator 40 01/30/18 17:30 76 28 156/62 (93) 93 01/30/18 17:13 89 30 40 01/30/18 17:00 78 23 142/59 (86) 98 01/30/18 17:00 25 Mechanical Ventilator 50 01/30/18 16:30 77 25 146/61 (89) 95 01/30/18 16:00 97.9 79 25 146/61 (89) 94 01/30/18 16:00 23 Mechanical Ventilator 50 01/30/18 16:00 50 01/30/18 16:00 Mechanical Ventilator 01/30/18 16:00 80 01/30/18 15:30 80 26 160/73 (102) 94 01/30/18 15:00 23 Mechanical Ventilator 50 01/30/18 15:00 81 23 117/52 (73) 98 01/30/18 14:36 73 30 50 01/30/18 14:30 72 20 117/52 (73) 100 01/30/18 14:00 74 26 126/51 (76) 97 01/30/18 14:00 26 Mechanical Ventilator 50 01/30/18 13:30 72 26 123/53 (76) 97 Intake and Output 01/30/18 01/31/18 19:00 07:00 Intake Total 1079.562 ml 1614.000 ml Output Total 815 ml 580 ml Balance 264.562 ml 1034.000 ml Intake Oral 0 ml Free Water 50 ml 60 ml IV Total 969.562 ml 1244.000 ml Tube Feeding 60 ml 310 ml Output Urine Total 815 ml 580 ml Laboratory Tests Test 01/30/18 14:25 01/31/18 03:30 Arterial Blood pH 7.333 (7.350-7.450) Arterial Blood Partial Pressure CO2 52.1 mmHg (35.0-45.0) H Arterial Blood Partial Pressure O2 64.9 mmHg (75.0-100.0) L Arterial Blood HCO3 27.0 mmol/L (22.0-26.0) H Arterial Blood Oxygen Saturation 91.8 % (95-100) L Arterial Blood Base Excess 0.5 (-2-2) Dima Test Positive White Blood Count 11.9 K/UL (4.8-10.8) H Red Blood Count 3.33 M/UL (4.70-6.10) L Hemoglobin 10.5 G/DL (14.2-18.0) L Hematocrit 32.2 % (42.0-52.0) L Mean Corpuscular Volume 97 FL (80-99) Mean Corpuscular Hemoglobin 31.6 PG (27.0-31.0) H Mean Corpuscular Hemoglobin Concent 32.6 G/DL (32.0-36.0) Red Cell Distribution Width 13.0 % (11.6-14.8) Platelet Count 164 K/UL (150-450) Mean Platelet Volume 8.3 FL (6.5-10.1) Neutrophils (%) (Auto) % (45.0-75.0) Lymphocytes (%) (Auto) % (20.0-45.0) Monocytes (%) (Auto) % (1.0-10.0) Eosinophils (%) (Auto) % (0.0-3.0) Basophils (%) (Auto) % (0.0-2.0) Sodium Level 146 MMOL/L (136-145) H Potassium Level 4.2 MMOL/L (3.5-5.1) Chloride Level 112 MMOL/L (98-107) H Carbon Dioxide Level 30 MMOL/L (21-32) Anion Gap 4 mmol/L (5-15) L Blood Urea Nitrogen 37 mg/dL (7-18) H Creatinine 0.9 MG/DL (0.55-1.30) Estimat Glomerular Filtration Rate mL/min (>60) Glucose Level 128 MG/DL (74-106) H Calcium Level 8.0 MG/DL (8.5-10.1) L Phosphorus Level 2.8 MG/DL (2.5-4.9) Magnesium Level 2.0 MG/DL (1.8-2.4) Total Bilirubin 0.8 MG/DL (0.2-1.0) Aspartate Amino Transf (AST/SGOT) 16 U/L (15-37) Alanine Aminotransferase (ALT/SGPT) 15 U/L (12-78) Alkaline Phosphatase 76 U/L (46-116) Total Protein 5.7 G/DL (6.4-8.2) L Albumin 1.4 G/DL (3.4-5.0) L Globulin 4.3 g/dL Albumin/Globulin Ratio 0.3 (1.0-2.7) L Height (Feet): 5 Height (Inches): 9.00 Weight (Pounds): 171 General Appearance: WD/WN, no apparent distress, alert Cardiovascular: normal rate Respiratory/Chest: normal breath sounds, no respiratory distress Abdominal Exam: normal bowel sounds, non tender, soft Extremities: normal range of motion, non-tender Willa Woods NP Jan 31, 2018 13:26
--- NOTE | 2018-01-31 13:43 | Nephrology Progress Note ---
Assessment/Plan Problem List: (1) OLEG (acute kidney injury) (2) Abnormal LFTs (3) Lactic acid acidosis (4) UTI (urinary tract infection) (5) Respiratory disorder with ventilator dependence (6) Pulmonary fibrosis Assessment Acute renal failure, high K Pneumonia / Sepsis / Hypoxia / UTI HypoAlbuminemia / Proteinuria Acute respiratory failure Pulmonary fibrosis Lactic acidosis Plan Kayexelate GT given 01/30 Adjust jackson- Discussed with RN Hydrate- Pulm support / on vent IV antibiotics Watch electrolytes Gastric support Per orders Subjective ROS Limited/Unobtainable: Yes Objective Objective Last 24 Hour Vital Signs Date Time Temp Pulse Resp B/P (MAP) Pulse Ox O2 Delivery O2 Flow Rate FiO2 01/31/18 13:13 65 34 60 01/31/18 13:00 72 28 157/70 (99) 95 01/31/18 12:32 106 161/97 01/31/18 12:00 98.6 72 30 172/88 (116) 93 01/31/18 11:00 71 28 149/67 (94) 97 01/31/18 10:32 67 38 60 01/31/18 10:00 70 31 149/67 (94) 94 01/31/18 10:00 78 30 155/68 (97) 94 01/31/18 09:44 95 30 01/31/18 09:43 60 01/31/18 09:21 73 30 01/31/18 09:15 60 01/31/18 09:03 92 01/31/18 09:00 70 31 149/67 (94) 94 01/31/18 08:59 71 31 60 01/31/18 08:24 82 148/74 01/31/18 08:00 Mechanical Ventilator 01/31/18 08:00 98.5 85 30 148/74 (98) 99 01/31/18 07:08 74 32 40 01/31/18 07:00 75 27 145/71 (95) 95 01/31/18 06:00 75 27 140/62 (88) 96 01/31/18 05:45 74 27 147/63 (91) 96 01/31/18 05:30 74 27 137/62 (87) 96 01/31/18 05:15 72 27 123/54 (77) 96 01/31/18 05:11 72 31 40 01/31/18 05:00 74 27 137/61 (86) 96 01/31/18 05:00 26 Mechanical Ventilator 60 01/31/18 04:45 76 24 130/74 (92) 94 01/31/18 04:30 76 24 137/67 (90) 94 01/31/18 04:15 76 27 137/67 (90) 94 01/31/18 04:00 76 01/31/18 04:00 60 01/31/18 04:00 98.0 79 24 145/73 (97) 94 01/31/18 04:00 25 Mechanical Ventilator 40 01/31/18 04:00 Mechanical Ventilator 01/31/18 03:30 94 26 152/79 (103) 94 01/31/18 03:00 25 Mechanical Ventilator 60 01/31/18 03:00 100 30 115/56 (75) 93 01/31/18 02:45 100 30 115/56 (75) 93 01/31/18 02:45 102 30 40 01/31/18 02:30 84 30 114/56 (75) 93 01/31/18 02:15 95 30 105/58 (74) 94 01/31/18 02:00 92 32 159/74 (102) 91 01/31/18 02:00 28 Mechanical Ventilator 60 01/31/18 01:30 85 31 167/87 (113) 87 01/31/18 01:23 81 30 40 01/31/18 01:10 Mechanical Ventilator 01/31/18 01:10 Mechanical Ventilator 01/31/18 01:03 81 30 40 01/31/18 01:00 26 Mechanical Ventilator 40 01/31/18 01:00 78 30 114/76 (89) 98 01/31/18 00:30 79 23 160/73 (102) 95 01/31/18 00:00 60 01/31/18 00:00 98 01/31/18 00:00 Mechanical Ventilator 01/31/18 00:00 26 Mechanical Ventilator 40 01/31/18 00:00 98.5 78 23 153/67 (95) 95 01/30/18 23:30 88 30 40 01/30/18 23:30 77 23 159/89 (112) 90 01/30/18 23:00 75 23 140/60 (86) 95 01/30/18 23:00 25 Mechanical Ventilator 40 01/30/18 22:30 75 23 119/59 (79) 95 01/30/18 22:00 24 Mechanical Ventilator 40 01/30/18 22:00 71 25 139/66 (90) 95 01/30/18 21:30 68 30 40 01/30/18 21:30 71 29 143/62 (89) 93 01/30/18 21:00 77 28 138/56 (83) 92 01/30/18 21:00 25 Mechanical Ventilator 40 01/30/18 20:45 77 28 138/61 (86) 93 01/30/18 20:30 80 26 143/69 (93) 93 01/30/18 20:26 82 133/76 01/30/18 20:15 78 29 133/76 (95) 93 01/30/18 20:00 40 01/30/18 20:00 Mechanical Ventilator 01/30/18 20:00 98.7 78 28 107/88 (94) 93 01/30/18 20:00 79 01/30/18 20:00 23 Mechanical Ventilator 40 01/30/18 19:55 Mechanical Ventilator 01/30/18 19:54 Mechanical Ventilator 50 01/30/18 19:30 77 30 40 01/30/18 19:30 79 25 148/67 (94) 95 01/30/18 19:00 79 25 124/59 (80) 93 01/30/18 19:00 23 Mechanical Ventilator 40 01/30/18 18:30 78 25 135/62 (86) 91 01/30/18 18:05 77 25 150/73 (98) 91 01/30/18 18:00 32 Mechanical Ventilator 40 01/30/18 17:30 76 28 156/62 (93) 93 01/30/18 17:13 89 30 40 01/30/18 17:00 78 23 142/59 (86) 98 01/30/18 17:00 25 Mechanical Ventilator 50 01/30/18 16:30 77 25 146/61 (89) 95 01/30/18 16:00 97.9 79 25 146/61 (89) 94 01/30/18 16:00 23 Mechanical Ventilator 50 01/30/18 16:00 50 01/30/18 16:00 Mechanical Ventilator 01/30/18 16:00 80 01/30/18 15:30 80 26 160/73 (102) 94 01/30/18 15:00 23 Mechanical Ventilator 50 01/30/18 15:00 81 23 117/52 (73) 98 01/30/18 14:36 73 30 50 01/30/18 14:30 72 20 117/52 (73) 100 01/30/18 14:00 74 26 126/51 (76) 97 01/30/18 14:00 26 Mechanical Ventilator 50 Intake and Output 01/30/18 01/31/18 19:00 07:00 Intake Total 1079.562 ml 1614.000 ml Output Total 815 ml 580 ml Balance 264.562 ml 1034.000 ml Intake Oral 0 ml Free Water 50 ml 60 ml IV Total 969.562 ml 1244.000 ml Tube Feeding 60 ml 310 ml Output Urine Total 815 ml 580 ml Laboratory Tests 01/30/18 14:25: Arterial Blood pH 7.333L, Arterial Blood Partial Pressure CO2 52.1H, Arterial Blood Partial Pressure O2 64.9L, Arterial Blood HCO3 27.0H, Arterial Blood Oxygen Saturation 91.8L, Arterial Blood Base Excess 0.5, Dima Test Positive 01/31/18 03:30: White Blood Count 11.9H, Red Blood Count 3.33L, Hemoglobin 10.5L, Hematocrit 32.2L, Mean Corpuscular Volume 97, Mean Corpuscular Hemoglobin 31.6H, Mean Corpuscular Hemoglobin Concent 32.6, Red Cell Distribution Width 13.0, Platelet Count 164, Mean Platelet Volume 8.3, Neutrophils (%) (Auto) , Lymphocytes (%) ( Auto) , Monocytes (%) (Auto) , Eosinophils (%) (Auto) , Basophils (%) (Auto) , Sodium Level 146H, Potassium Level 4.2, Chloride Level 112H, Carbon Dioxide Level 30, Anion Gap 4L, Blood Urea Nitrogen 37H, Creatinine 0.9, Estimat Glomerular Filtration Rate , Glucose Level 128H, Calcium Level 8.0L, Phosphorus Level 2.8, Magnesium Level 2.0, Total Bilirubin 0.8, Aspartate Amino Transf (AST /SGOT) 16, Alanine Aminotransferase (ALT/SGPT) 15, Alkaline Phosphatase 76, Total Protein 5.7L, Albumin 1.4L, Globulin 4.3, Albumin/Globulin Ratio 0.3L Height (Feet): 5 Height (Inches): 9.00 Weight (Pounds): 171 EENT: other - being vented Cardiovascular: normal rate Respiratory/Chest: decreased breath sounds Abdomen: soft Objective o change Juan C Mclaughlin MD Jan 31, 2018 13:43
[2018-01-31] MEDS ORDERED: D5 1/2NS 1000ml IV ONE (15:26)
[2018-01-31] MEDS ORDERED: NS 275ml ONE (15:26)
[2018-01-31] MEDS ORDERED: Tubing IV Secondary IV ONE (15:26)
[2018-01-31] MEDS: D5 1/2NS 1,000 ML IV SCH (18:00)
[2018-01-31] MEDS: Miralax 17gm pkt NG SCH (20:36)
[2018-01-31] MEDS: Metoprolol Tartrate 50mg tab ORAL SCH (20:37)
--- NOTE | 2018-01-31 20:45 | General Progress Note ---
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 (2) Renal insufficiency ICD Codes: N28.9 - Disorder of kidney and ureter, unspecified; R65.20 - Severe sepsis without septic shock SNOMED: 219898111, 515204460 (3) UTI (urinary tract infection) ICD Codes: N39.0 - Urinary tract infection, site not specified SNOMED: 06286441, 131101205 Qualifiers: Qualified Codes: N39.0 - Urinary tract infection, site not specified (4) Pneumonia ICD Codes: J18.9 - Pneumonia, unspecified organism SNOMED: 758019673 Qualifiers: Qualified Codes: J18.1 - Lobar pneumonia, unspecified organism (5) Severe sepsis ICD Codes: A41.9 - Sepsis, unspecified organism; R65.20 - Severe sepsis without septic shock SNOMED: 69184196 (6) Hypoxia ICD Codes: R09.02 - Hypoxemia; R65.20 - Severe sepsis without septic shock SNOMED: 898905195, 283426728 (7) Pulmonary fibrosis ICD Codes: J84.10 - Pulmonary fibrosis, unspecified SNOMED: 78001847 (8) Lactic acid acidosis ICD Codes: E87.2 - Acidosis SNOMED: 40736546 (9) OLEG (acute kidney injury) ICD Codes: N17.9 - Acute kidney failure, unspecified SNOMED: 95967485 (10) Abnormal LFTs ICD Codes: R94.5 - Abnormal results of liver function studies SNOMED: 175571267 Status: progressing Assessment/Plan severe pulmonary firbrosis resp failure pna resp failure no change poor prognosis not improving Subjective ROS Limited/Unobtainable: Yes Allergies: Coded Allergies: No Known Allergies (Unverified , 01/24/18) Objective Last 24 Hour Vital Signs Date Time Temp Pulse Resp B/P (MAP) Pulse Ox O2 Delivery O2 Flow Rate FiO2 01/31/18 20:37 75 148/54 01/31/18 19:49 78 35 80 01/31/18 19:00 79 29 150/40 (76) 96 01/31/18 18:00 76 29 146/48 (80) 97 01/31/18 18:00 69 30 157/79 (105) 100 01/31/18 17:01 75 34 90 01/31/18 17:00 98.2 73 30 133/45 (74) 98 01/31/18 16:00 60 01/31/18 16:00 69 30 157/79 (105) 100 01/31/18 16:00 Mechanical Ventilator 01/31/18 15:57 70 01/31/18 15:09 65 31 60 01/31/18 15:00 74 29 148/70 (96) 100 01/31/18 14:00 72 28 157/70 (99) 95 01/31/18 14:00 65 30 141/73 (95) 100 01/31/18 13:13 65 34 60 01/31/18 13:00 72 28 157/70 (99) 95 01/31/18 12:32 106 161/97 01/31/18 12:02 78 01/31/18 12:00 Mechanical Ventilator 01/31/18 12:00 98.6 72 30 172/88 (116) 93 01/31/18 12:00 60 01/31/18 11:00 71 28 149/67 (94) 97 01/31/18 10:45 60 01/31/18 10:32 67 38 60 01/31/18 10:30 60 01/31/18 10:00 70 31 149/67 (94) 94 01/31/18 10:00 78 30 155/68 (97) 94 01/31/18 10:00 50 01/31/18 09:44 95 30 01/31/18 09:43 60 01/31/18 09:21 73 30 01/31/18 09:15 60 01/31/18 09:03 92 01/31/18 09:00 70 31 149/67 (94) 94 01/31/18 08:59 71 31 60 01/31/18 08:26 81 01/31/18 08:24 82 148/74 01/31/18 08:00 Mechanical Ventilator 01/31/18 08:00 98.5 85 30 148/74 (98) 99 01/31/18 07:08 74 32 40 01/31/18 07:00 75 27 145/71 (95) 95 01/31/18 06:00 75 27 140/62 (88) 96 01/31/18 05:45 74 27 147/63 (91) 96 01/31/18 05:30 74 27 137/62 (87) 96 01/31/18 05:15 72 27 123/54 (77) 96 01/31/18 05:11 72 31 40 01/31/18 05:00 74 27 137/61 (86) 96 01/31/18 05:00 26 Mechanical Ventilator 60 01/31/18 04:45 76 24 130/74 (92) 94 01/31/18 04:30 76 24 137/67 (90) 94 01/31/18 04:15 76 27 137/67 (90) 94 01/31/18 04:00 76 01/31/18 04:00 60 01/31/18 04:00 98.0 79 24 145/73 (97) 94 01/31/18 04:00 25 Mechanical Ventilator 40 01/31/18 04:00 Mechanical Ventilator 01/31/18 03:30 94 26 152/79 (103) 94 01/31/18 03:00 25 Mechanical Ventilator 60 01/31/18 03:00 100 30 115/56 (75) 93 01/31/18 02:45 100 30 115/56 (75) 93 01/31/18 02:45 102 30 40 01/31/18 02:30 84 30 114/56 (75) 93 01/31/18 02:15 95 30 105/58 (74) 94 01/31/18 02:00 92 32 159/74 (102) 91 01/31/18 02:00 28 Mechanical Ventilator 60 01/31/18 01:30 85 31 167/87 (113) 87 01/31/18 01:23 81 30 40 01/31/18 01:10 Mechanical Ventilator 01/31/18 01:10 Mechanical Ventilator 01/31/18 01:03 81 30 40 01/31/18 01:00 26 Mechanical Ventilator 40 01/31/18 01:00 78 30 114/76 (89) 98 01/31/18 00:30 79 23 160/73 (102) 95 01/31/18 00:00 60 01/31/18 00:00 98 01/31/18 00:00 Mechanical Ventilator 01/31/18 00:00 26 Mechanical Ventilator 40 01/31/18 00:00 98.5 78 23 153/67 (95) 95 01/30/18 23:30 88 30 40 01/30/18 23:30 77 23 159/89 (112) 90 01/30/18 23:00 75 23 140/60 (86) 95 01/30/18 23:00 25 Mechanical Ventilator 40 01/30/18 22:30 75 23 119/59 (79) 95 01/30/18 22:00 24 Mechanical Ventilator 40 01/30/18 22:00 71 25 139/66 (90) 95 01/30/18 21:30 68 30 40 01/30/18 21:30 71 29 143/62 (89) 93 01/30/18 21:00 77 28 138/56 (83) 92 01/30/18 21:00 25 Mechanical Ventilator 40 01/30/18 20:45 77 28 138/61 (86) 93 Intake and Output 01/30/18 01/31/18 19:00 07:00 Intake Total 1079.562 ml 1614.000 ml Output Total 815 ml 580 ml Balance 264.562 ml 1034.000 ml Intake Oral 0 ml Free Water 50 ml 60 ml IV Total 969.562 ml 1244.000 ml Tube Feeding 60 ml 310 ml Output Urine Total 815 ml 580 ml Laboratory Tests 01/31/18 03:30: White Blood Count 11.9H, Red Blood Count 3.33L, Hemoglobin 10.5L, Hematocrit 32.2L, Mean Corpuscular Volume 97, Mean Corpuscular Hemoglobin 31.6H, Mean Corpuscular Hemoglobin Concent 32.6, Red Cell Distribution Width 13.0, Platelet Count 164, Mean Platelet Volume 8.3, Neutrophils (%) (Auto) , Lymphocytes (%) ( Auto) , Monocytes (%) (Auto) , Eosinophils (%) (Auto) , Basophils (%) (Auto) , Sodium Level 146H, Potassium Level 4.2, Chloride Level 112H, Carbon Dioxide Level 30, Anion Gap 4L, Blood Urea Nitrogen 37H, Creatinine 0.9, Estimat Glomerular Filtration Rate , Glucose Level 128H, Calcium Level 8.0L, Phosphorus Level 2.8, Magnesium Level 2.0, Total Bilirubin 0.8, Aspartate Amino Transf (AST /SGOT) 16, Alanine Aminotransferase (ALT/SGPT) 15, Alkaline Phosphatase 76, Total Protein 5.7L, Albumin 1.4L, Globulin 4.3, Albumin/Globulin Ratio 0.3L Height (Feet): 5 Height (Inches): 9.00 Weight (Pounds): 171 Neck: supple Cardiovascular: normal rate Respiratory/Chest: lungs clear Edwin Corrigan MD Jan 31, 2018 20:45
--- NOTE | 2018-01-31 21:56 | General Surgery Progress Note ---
General Surgery-Progress Note Subjective Additional Comments still in ICU in critical condition. leukocytosis trending down. labs noted. Objective Last 24 Hour Vital Signs Date Time Temp Pulse Resp B/P (MAP) Pulse Ox O2 Delivery O2 Flow Rate FiO2 01/31/18 21:27 63 33 70 01/31/18 20:37 75 148/54 01/31/18 20:00 90 01/31/18 20:00 Mechanical Ventilator 01/31/18 19:49 78 35 80 01/31/18 19:00 79 29 150/40 (76) 96 01/31/18 18:00 76 29 146/48 (80) 97 01/31/18 18:00 69 30 157/79 (105) 100 01/31/18 17:01 75 34 90 01/31/18 17:00 98.2 73 30 133/45 (74) 98 01/31/18 16:00 60 01/31/18 16:00 69 30 157/79 (105) 100 01/31/18 16:00 Mechanical Ventilator 01/31/18 15:57 70 01/31/18 15:09 65 31 60 01/31/18 15:00 74 29 148/70 (96) 100 01/31/18 14:00 72 28 157/70 (99) 95 01/31/18 14:00 65 30 141/73 (95) 100 01/31/18 13:13 65 34 60 01/31/18 13:00 72 28 157/70 (99) 95 01/31/18 12:32 106 161/97 01/31/18 12:02 78 01/31/18 12:00 Mechanical Ventilator 01/31/18 12:00 98.6 72 30 172/88 (116) 93 01/31/18 12:00 60 01/31/18 11:00 71 28 149/67 (94) 97 01/31/18 10:45 60 01/31/18 10:32 67 38 60 01/31/18 10:30 60 01/31/18 10:00 70 31 149/67 (94) 94 01/31/18 10:00 78 30 155/68 (97) 94 01/31/18 10:00 50 01/31/18 09:44 95 30 01/31/18 09:43 60 01/31/18 09:21 73 30 01/31/18 09:15 60 01/31/18 09:03 92 01/31/18 09:00 70 31 149/67 (94) 94 01/31/18 08:59 71 31 60 01/31/18 08:26 81 01/31/18 08:24 82 148/74 01/31/18 08:00 Mechanical Ventilator 01/31/18 08:00 98.5 85 30 148/74 (98) 99 01/31/18 07:08 74 32 40 01/31/18 07:00 75 27 145/71 (95) 95 01/31/18 06:00 75 27 140/62 (88) 96 01/31/18 05:45 74 27 147/63 (91) 96 01/31/18 05:30 74 27 137/62 (87) 96 01/31/18 05:15 72 27 123/54 (77) 96 01/31/18 05:11 72 31 40 01/31/18 05:00 74 27 137/61 (86) 96 01/31/18 05:00 26 Mechanical Ventilator 60 01/31/18 04:45 76 24 130/74 (92) 94 01/31/18 04:30 76 24 137/67 (90) 94 01/31/18 04:15 76 27 137/67 (90) 94 01/31/18 04:00 76 01/31/18 04:00 60 01/31/18 04:00 98.0 79 24 145/73 (97) 94 01/31/18 04:00 25 Mechanical Ventilator 40 01/31/18 04:00 Mechanical Ventilator 01/31/18 03:30 94 26 152/79 (103) 94 01/31/18 03:00 25 Mechanical Ventilator 60 01/31/18 03:00 100 30 115/56 (75) 93 01/31/18 02:45 100 30 115/56 (75) 93 01/31/18 02:45 102 30 40 01/31/18 02:30 84 30 114/56 (75) 93 01/31/18 02:15 95 30 105/58 (74) 94 01/31/18 02:00 92 32 159/74 (102) 91 01/31/18 02:00 28 Mechanical Ventilator 60 01/31/18 01:30 85 31 167/87 (113) 87 12/11/18 01:23 81 30 40 01/31/18 01:10 Mechanical Ventilator 01/31/18 01:10 Mechanical Ventilator 01/31/18 01:03 81 30 40 01/31/18 01:00 26 Mechanical Ventilator 40 01/31/18 01:00 78 30 114/76 (89) 98 01/31/18 00:30 79 23 160/73 (102) 95 01/31/18 00:00 60 01/31/18 00:00 98 01/31/18 00:00 Mechanical Ventilator 01/31/18 00:00 26 Mechanical Ventilator 40 01/31/18 00:00 98.5 78 23 153/67 (95) 95 01/30/18 23:30 88 30 40 01/30/18 23:30 77 23 159/89 (112) 90 01/30/18 23:00 75 23 140/60 (86) 95 01/30/18 23:00 25 Mechanical Ventilator 40 01/30/18 22:30 75 23 119/59 (79) 95 01/30/18 22:00 24 Mechanical Ventilator 40 01/30/18 22:00 71 25 139/66 (90) 95 I&O Intake and Output 01/30/18 01/31/18 18:59 06:59 Intake Total 1068.562 ml 1599.000 ml Output Total 875 ml 550 ml Balance 193.562 ml 1049.000 ml Intake Oral 0 ml Free Water 50 ml 60 ml IV Total 973.562 ml 1249.000 ml Tube Feeding 45 ml 290 ml Output Urine Total 875 ml 550 ml Dressing: saturated Wound: other Drains: other Cardiovascular: RSR Respiratory: decreased breath sounds Abdomen: soft, flat, present bowel sounds Extremities: other Laboratory Tests Test 01/31/18 03:30 White Blood Count 11.9 K/UL (4.8-10.8) H Red Blood Count 3.33 M/UL (4.70-6.10) L Hemoglobin 10.5 G/DL (14.2-18.0) L Hematocrit 32.2 % (42.0-52.0) L Mean Corpuscular Volume 97 FL (80-99) Mean Corpuscular Hemoglobin 31.6 PG (27.0-31.0) H Mean Corpuscular Hemoglobin Concent 32.6 G/DL (32.0-36.0) Red Cell Distribution Width 13.0 % (11.6-14.8) Platelet Count 164 K/UL (150-450) Mean Platelet Volume 8.3 FL (6.5-10.1) Neutrophils (%) (Auto) % (45.0-75.0) Lymphocytes (%) (Auto) % (20.0-45.0) Monocytes (%) (Auto) % (1.0-10.0) Eosinophils (%) (Auto) % (0.0-3.0) Basophils (%) (Auto) % (0.0-2.0) Sodium Level 146 MMOL/L (136-145) H Potassium Level 4.2 MMOL/L (3.5-5.1) Chloride Level 112 MMOL/L (98-107) H Carbon Dioxide Level 30 MMOL/L (21-32) Anion Gap 4 mmol/L (5-15) L Blood Urea Nitrogen 37 mg/dL (7-18) H Creatinine 0.9 MG/DL (0.55-1.30) Estimat Glomerular Filtration Rate mL/min (>60) Glucose Level 128 MG/DL (74-106) H Calcium Level 8.0 MG/DL (8.5-10.1) L Phosphorus Level 2.8 MG/DL (2.5-4.9) Magnesium Level 2.0 MG/DL (1.8-2.4) Total Bilirubin 0.8 MG/DL (0.2-1.0) Aspartate Amino Transf (AST/SGOT) 16 U/L (15-37) Alanine Aminotransferase (ALT/SGPT) 15 U/L (12-78) Alkaline Phosphatase 76 U/L (46-116) Total Protein 5.7 G/DL (6.4-8.2) L Albumin 1.4 G/DL (3.4-5.0) L Globulin 4.3 g/dL Albumin/Globulin Ratio 0.3 (1.0-2.7) L Plan Problems: (1) Decubitus ulcer of sacral region, stage 3 Assessment & Plan: Stage III full thickness pressure injury sacrum present on admission (L)2cm x (W)1.8cm ,wound bed with 80% yellow slough ,20% granular Borders slightly macerated. Non-blanching erythema without elevation in skin temp, or induration periwound. NO odor noted. Abrasions noted to R elbow (L)3.2cm x (W)1.9cm.Wound with Biofilm ,erythema al; lynn borders .Periwound clean and intact. Abrasion noted to L elbow(L)5.5cm x (W)1.6cm ,biofim noted to wound bed .erythema along borders .Periwound without erythema or elevation in skin temp. Abrasion lateral L knee with dry scab. Abrasion medial R knee with dry scab. Bilat heels boggy with non-blanching erythema. Non-tender when palpated. Pt repositioned with pillow on his side but restless and repositioned self on back. given critical condition will continue with maximal efforts to reduce worsening wounds as in this condition may deteriorate Tx.Plan: Cleanse R and L elbows with Saline.Apply Silvasorb Gel to both elbows .Cover with Optifoam drsg .Change every 3 Days and prn. Cleanse Sacral Pressure injury with Saline.Apply Therahoney .Cavilon periwound.Cover with Optifoam drsg Daily and prn. Apply Cavilon to Both heels.Cover with Optifoam drsg .Change Every 7 days and prn. Cavilon to abrasions R and L lower ext.Cover with Optifoam change every 7 days and prn. Off-load heels with pillow. Reposition at least every 2 hours or as tolerated. Surface support mattress. (2) Abnormal LFTs Assessment & Plan: US reviewed - absent GB dilated ducts CT reviewed - dilated duct without notable obstruction LFT's noted and elevated t bili trending down no jaundice AST/ALT nml Alk phos nml leukocytosis trending down -no acute surgical intervention necessary -t bili and d bili correlate. unlikely obstructive at this time. especially with history of cholecystectomy prior -trend labs thank you (3) Severe sepsis Myke Merino Jan 31, 2018 21:55
[2018-02-01] VITALS (29 sets, daily range): BP systolic 107–163; BP diastolic 50–81
[2018-02-01 05:15] LABS: HEMATOCRIT 32.6 % (42.0-52.0); HEMOGLOBIN 10.8 G/DL (14.2-18.0); MEAN CORPUSCULAR VOLUME 96 FL (80-99); PLATELET COUNT 207 K/UL (150-450); RED BLOOD COUNT 3.41 M/UL (4.70-6.10); RED CELL DISTRIBUTION WIDTH 13.4 % (11.6-14.8); WHITE BLOOD COUNT 13.1 K/UL (4.8-10.8)
[2018-02-01 05:46] LABS: ALANINE AMINOTRANSFERASE 16 U/L (12-78); ALBUMIN 1.4 G/DL (3.4-5.0); ALBUMIN/GLOBULIN RATIO 0.3 (1.0-2.7); ALKALINE PHOSPHATASE 78 U/L (46-116); ANION GAP 5 mmol/L (5-15); ASPARTATE AMINO TRANSFERASE 20 U/L (15-37); BILIRUBIN,TOTAL 0.7 MG/DL (0.2-1.0); BLOOD UREA NITROGEN 36 mg/dL (7-18); CALCIUM 8.1 MG/DL (8.5-10.1); CARBON DIOXIDE 31 MMOL/L (21-32); CHLORIDE 112 MMOL/L (98-107); CREATININE 0.8 MG/DL (0.55-1.30); PHOSPHORUS 3.2 MG/DL (2.5-4.9); POTASSIUM 3.8 MMOL/L (3.5-5.1); SODIUM 148 MMOL/L (136-145)
--- NOTE | 2018-02-01 07:46 | General Progress Note ---
Assessment/Plan Assessment/Plan ASSESSMENT AND RECOMMENDATIONS # Leukocytosis. Secondary to sepsis and pna. is on abx at this time --> WBC improving 16k--> 12k-->13k --> Peripheral has been ordered and reviewed and no blasts are noted --> Medications have been reviewed --> Imaging has been reviewed, reveals apparent worsening of bilateral parenchymal disease --> Blood cultures and urine cultures are reviewed --> has been started on abx, empiric treatment # Anemia of chronic disease due to underlying chronic medical issues, multifactorial. --> Given downtrending hgb, will order a anemia panel --> Cont to monitor for stability --> hgb 13-->11.2-->11 # Coagulopathy is now off hep gtt --> order hepatitis and hiv --> ptt and mixing study # Respiratory failure is on a vent --> per pulm --> extubate soon per Alex # Pneumonia. # Urinary tract infection. --> s/p abx # Status post recurrent falls. # Sepsis. # Dehydration. # Afib and now in sr --> as per cards GREATLY APPRECIATE CONSULTATION. Subjective Constitutional: Denies: no symptoms, chills, diaphoresis, fever, malaise, weakness, other Cardiovascular: Denies: no symptoms, chest pain, edema, irregular heart rate, lightheadedness, palpitations, syncope, other Respiratory: Denies: no symptoms, cough, orthopnea, shortness of breath, SOB with excertion, SOB at rest, sputum, stridor, wheezing, other Gastrointestinal/Abdominal: Denies: no symptoms, abdomen distended, abdominal pain, black stools, tarry stools, blood in stool, constipated, diarrhea, difficulty swallowing, nausea, poor appetite, poor fluid intake, rectal bleeding , vomiting, other Genitourinary: Denies: no symptoms, burning, discharge, frequency, flank pain, hematuria, incontinence, pain, urgency, other Neurologic/Psychiatric: Denies: no symptoms, anxiety, depressed, emotional problems, headache, numbness, paresthesia, pre-existing deficit, seizure, tingling, tremors, weakness, other Endocrine: Denies: no symptoms, excessive sweating, flushing, intolerance to cold, intolerance to heat, increased hunger, increased thirst, increased urine, unexplained weight gain, unexplained weight loss, other Allergies: Coded Allergies: No Known Allergies (Unverified , 01/24/18) Subjective Pt remains in ICU, on vent. No acute events. WBC improving. Objective Last 24 Hour Vital Signs Date Time Temp Pulse Resp B/P (MAP) Pulse Ox O2 Delivery O2 Flow Rate FiO2 02/01/18 06:00 74 32 133/60 (84) 91 02/01/18 05:28 71 35 60 02/01/18 05:00 74 32 147/57 (87) 91 02/01/18 04:00 98.0 72 34 135/81 (99) 91 02/01/18 04:00 73 02/01/18 04:00 Mechanical Ventilator 02/01/18 04:00 70 02/01/18 03:19 75 31 65 02/01/18 03:00 72 32 136/61 (86) 97 02/01/18 02:00 72 30 149/69 (95) 97 02/01/18 01:25 107 33 65 02/01/18 01:00 67 30 143/70 (94) 96 02/01/18 00:00 98.3 68 30 163/50 (87) 94 02/01/18 00:00 70 02/01/18 00:00 63 02/01/18 00:00 Mechanical Ventilator 01/31/18 23:31 63 30 70 01/31/18 23:00 64 30 143/53 (83) 93 01/31/18 22:00 67 28 110/47 (68) 92 01/31/18 21:27 63 33 70 01/31/18 21:00 65 31 149/45 (79) 95 01/31/18 20:37 75 148/54 01/31/18 20:00 73 01/31/18 20:00 98.0 75 29 150/40 (76) 96 01/31/18 20:00 90 01/31/18 20:00 Mechanical Ventilator 01/31/18 19:49 78 35 80 01/31/18 19:00 79 29 150/40 (76) 96 01/31/18 18:00 76 29 146/48 (80) 97 01/31/18 18:00 69 30 157/79 (105) 100 01/31/18 17:01 75 34 90 01/31/18 17:00 98.2 73 30 133/45 (74) 98 01/31/18 16:00 60 01/31/18 16:00 69 30 157/79 (105) 100 01/31/18 16:00 Mechanical Ventilator 01/31/18 15:57 70 01/31/18 15:09 65 31 60 01/31/18 15:00 74 29 148/70 (96) 100 01/31/18 14:00 72 28 157/70 (99) 95 01/31/18 14:00 65 30 141/73 (95) 100 01/31/18 13:13 65 34 60 01/31/18 13:00 72 28 157/70 (99) 95 01/31/18 12:32 106 161/97 01/31/18 12:02 78 01/31/18 12:00 Mechanical Ventilator 01/31/18 12:00 98.6 72 30 172/88 (116) 93 01/31/18 12:00 60 01/31/18 11:00 71 28 149/67 (94) 97 01/31/18 10:45 60 01/31/18 10:32 67 38 60 01/31/18 10:30 60 01/31/18 10:00 70 31 149/67 (94) 94 01/31/18 10:00 78 30 155/68 (97) 94 01/31/18 10:00 50 01/31/18 09:44 95 30 01/31/18 09:43 60 01/31/18 09:21 73 30 01/31/18 09:15 60 01/31/18 09:03 92 01/31/18 09:00 70 31 149/67 (94) 94 01/31/18 08:59 71 31 60 01/31/18 08:26 81 01/31/18 08:24 82 148/74 01/31/18 08:00 Mechanical Ventilator 01/31/18 08:00 98.5 85 30 148/74 (98) 99 Intake and Output 01/31/18 02/01/18 19:00 07:00 Intake Total 1450.000 ml 1490.000 ml Output Total 485 ml 470 ml Balance 965.000 ml 1020.000 ml Free Water 50 ml 110 ml IV Total 930.000 ml 830.000 ml Tube Feeding 420 ml 550 ml Other 50 ml Output Urine Total 485 ml 470 ml Laboratory Tests 02/01/18 04:00: White Blood Count 13.1H, Red Blood Count 3.41L, Hemoglobin 10.8L, Hematocrit 32.6L, Mean Corpuscular Volume 96, Mean Corpuscular Hemoglobin 31.6H, Mean Corpuscular Hemoglobin Concent 33.1, Red Cell Distribution Width 13.4, Platelet Count 207, Mean Platelet Volume 8.8, Neutrophils (%) (Auto) , Lymphocytes (%) ( Auto) , Monocytes (%) (Auto) , Eosinophils (%) (Auto) , Basophils (%) (Auto) , Sodium Level 148H, Potassium Level 3.8, Chloride Level 112H, Carbon Dioxide Level 31, Anion Gap 5, Blood Urea Nitrogen 36H, Creatinine 0.8, Estimat Glomerular Filtration Rate , Glucose Level 125H, Calcium Level 8.1L, Phosphorus Level 3.2, Magnesium Level 1.8, Total Bilirubin 0.7, Aspartate Amino Transf (AST /SGOT) 20, Alanine Aminotransferase (ALT/SGPT) 16, Alkaline Phosphatase 78, Total Protein 5.8L, Albumin 1.4L, Globulin 4.4, Albumin/Globulin Ratio 0.3L Height (Feet): 5 Height (Inches): 9.00 Weight (Pounds): 171 General Appearance: lethargic EENT: normal ENT inspection Cardiovascular: normal rate Abdomen: no mass Extremities: normal inspection Edema: mild edema Neurologic: normal mood/affect Skin: warm/dry Objective on vent++ Fabian Yung MD Feb 01, 2018 07:46
[2018-02-01] MEDS: Heparin 5000 units/ml inj SUBQ SCH ×2 (09:00→20:41)
[2018-02-01] MEDS: Cefepime HCl 1 GM in D5W 55 ML IVPB SCH ×2 (10:11→22:12)
[2018-02-01] MEDS: Metoprolol Tartrate 50mg tab ORAL SCH ×2 (10:11→20:39)
[2018-02-01] MEDS: Midazolam 2mg/2ml Inj IVP PRN (10:14)
[2018-02-01] MEDS: Vancomycin 1gm in D5W 275ml IVPB SCH ×2 (11:00→23:48)
--- NOTE | 2018-02-01 11:34 | Nephrology Progress Note ---
Assessment/Plan Problem List: (1) OLEG (acute kidney injury) (2) Abnormal LFTs (3) Lactic acid acidosis (4) UTI (urinary tract infection) (5) Respiratory disorder with ventilator dependence (6) Pulmonary fibrosis Assessment Acute renal failure, high K Pneumonia / Sepsis / Hypoxia / UTI HypoAlbuminemia / Proteinuria Acute respiratory failure Pulmonary fibrosis Lactic acidosis Plan Kayexelate GT given 01/30 Adjust jackson- Discussed with RN Hydrate- Pulm support / on vent IV antibiotics Watch electrolytes Gastric support Per orders Subjective ROS Limited/Unobtainable: Yes Objective Objective Last 24 Hour Vital Signs Date Time Temp Pulse Resp B/P (MAP) Pulse Ox O2 Delivery O2 Flow Rate FiO2 02/01/18 10:38 70 30 70 02/01/18 10:11 78 133/60 02/01/18 09:54 78 34 70 02/01/18 09:15 95 02/01/18 08:57 115 36 60 02/01/18 07:20 104 40 60 02/01/18 06:00 74 32 133/60 (84) 91 02/01/18 05:28 71 35 60 02/01/18 05:00 74 32 147/57 (87) 91 02/01/18 04:00 98.0 72 34 135/81 (99) 91 02/01/18 04:00 73 02/01/18 04:00 Mechanical Ventilator 02/01/18 04:00 70 02/01/18 03:19 75 31 65 02/01/18 03:00 72 32 136/61 (86) 97 02/01/18 02:00 72 30 149/69 (95) 97 02/01/18 01:25 107 33 65 02/01/18 01:00 67 30 143/70 (94) 96 02/01/18 00:00 98.3 68 30 163/50 (87) 94 02/01/18 00:00 70 02/01/18 00:00 63 02/01/18 00:00 Mechanical Ventilator 01/31/18 23:31 63 30 70 01/31/18 23:00 64 30 143/53 (83) 93 01/31/18 22:00 67 28 110/47 (68) 92 01/31/18 21:27 63 33 70 01/31/18 21:00 65 31 149/45 (79) 95 01/31/18 20:37 75 148/54 01/31/18 20:00 73 01/31/18 20:00 98.0 75 29 150/40 (76) 96 01/31/18 20:00 90 01/31/18 20:00 Mechanical Ventilator 01/31/18 19:49 78 35 80 01/31/18 19:00 79 29 150/40 (76) 96 01/31/18 18:00 76 29 146/48 (80) 97 01/31/18 18:00 69 30 157/79 (105) 100 01/31/18 17:01 75 34 90 01/31/18 17:00 98.2 73 30 133/45 (74) 98 01/31/18 16:00 60 01/31/18 16:00 69 30 157/79 (105) 100 01/31/18 16:00 Mechanical Ventilator 01/31/18 15:57 70 01/31/18 15:09 65 31 60 01/31/18 15:00 74 29 148/70 (96) 100 01/31/18 14:00 72 28 157/70 (99) 95 01/31/18 14:00 65 30 141/73 (95) 100 01/31/18 13:13 65 34 60 01/31/18 13:00 72 28 157/70 (99) 95 01/31/18 12:32 106 161/97 01/31/18 12:02 78 01/31/18 12:00 Mechanical Ventilator 01/31/18 12:00 98.6 72 30 172/88 (116) 93 01/31/18 12:00 60 Intake and Output 01/31/18 02/01/18 19:00 07:00 Intake Total 1450.000 ml 1490.000 ml Output Total 485 ml 470 ml Balance 965.000 ml 1020.000 ml Free Water 50 ml 110 ml IV Total 930.000 ml 830.000 ml Tube Feeding 420 ml 550 ml Other 50 ml Output Urine Total 485 ml 470 ml Laboratory Tests 02/01/18 04:00: White Blood Count 13.1H, Red Blood Count 3.41L, Hemoglobin 10.8L, Hematocrit 32.6L, Mean Corpuscular Volume 96, Mean Corpuscular Hemoglobin 31.6H, Mean Corpuscular Hemoglobin Concent 33.1, Red Cell Distribution Width 13.4, Platelet Count 207, Mean Platelet Volume 8.8, Neutrophils (%) (Auto) , Lymphocytes (%) ( Auto) , Monocytes (%) (Auto) , Eosinophils (%) (Auto) , Basophils (%) (Auto) , Sodium Level 148H, Potassium Level 3.8, Chloride Level 112H, Carbon Dioxide Level 31, Anion Gap 5, Blood Urea Nitrogen 36H, Creatinine 0.8, Estimat Glomerular Filtration Rate , Glucose Level 125H, Calcium Level 8.1L, Phosphorus Level 3.2, Magnesium Level 1.8, Total Bilirubin 0.7, Aspartate Amino Transf (AST /SGOT) 20, Alanine Aminotransferase (ALT/SGPT) 16, Alkaline Phosphatase 78, Total Protein 5.8L, Albumin 1.4L, Globulin 4.4, Albumin/Globulin Ratio 0.3L Height (Feet): 5 Height (Inches): 9.00 Weight (Pounds): 171 EENT: other - vented Cardiovascular: other - variable Respiratory/Chest: decreased breath sounds Abdomen: distended Objective o change Juan C Mclaughlin MD Feb 01, 2018 11:34
--- NOTE | 2018-02-01 11:49 | Cardiac Electrophysiology PN ---
Assessment/Plan Assessment/Plan 1. Troponin Leak. The levels are flat. Due to the respiratory failure and azotemia. Echo normal LVEF 2. Respiratory failure, due to PNA and CHF. The patient is on the ventilator. Antibiotic per ID Continue to wean per Dr. Johnson.Needs higher Fio2 today 70% 3. Hypokalemia, potassium was replaced. 4. Azotemia and hypernatremia. Sodium is 148. FU Dr Mclaughlin 5. Elevated bilirubin of 2.3. Down to 1.1 DW RN Subjective Subjective In ICU on the Vent.Off fentanyl drip. In SR. Fio2 increased to 70% Objective Last 24 Hour Vital Signs Date Time Temp Pulse Resp B/P (MAP) Pulse Ox O2 Delivery O2 Flow Rate FiO2 02/01/18 11:00 77 30 123/55 (77) 91 02/01/18 10:38 70 30 70 02/01/18 10:11 78 133/60 02/01/18 10:00 74 32 147/69 (95) 91 02/01/18 09:54 78 34 70 02/01/18 09:15 95 02/01/18 09:00 80 30 122/60 (80) 91 02/01/18 08:57 115 36 60 02/01/18 08:00 Mechanical Ventilator 02/01/18 08:00 70 02/01/18 08:00 98.2 72 27 129/77 (94) 91 02/01/18 08:00 77 02/01/18 07:20 104 40 60 02/01/18 07:00 75 29 130/60 (83) 91 02/01/18 06:00 74 32 133/60 (84) 91 02/01/18 05:28 71 35 60 02/01/18 05:00 74 32 147/57 (87) 91 02/01/18 04:00 98.0 72 34 135/81 (99) 91 02/01/18 04:00 73 02/01/18 04:00 Mechanical Ventilator 02/01/18 04:00 70 02/01/18 03:19 75 31 65 02/01/18 03:00 72 32 136/61 (86) 97 02/01/18 02:00 72 30 149/69 (95) 97 02/01/18 01:25 107 33 65 02/01/18 01:00 67 30 143/70 (94) 96 02/01/18 00:00 98.3 68 30 163/50 (87) 94 02/01/18 00:00 70 02/01/18 00:00 63 02/01/18 00:00 Mechanical Ventilator 01/31/18 23:31 63 30 70 01/31/18 23:00 64 30 143/53 (83) 93 01/31/18 22:00 67 28 110/47 (68) 92 01/31/18 21:27 63 33 70 01/31/18 21:00 65 31 149/45 (79) 95 01/31/18 20:37 75 148/54 01/31/18 20:00 73 01/31/18 20:00 98.0 75 29 150/40 (76) 96 01/31/18 20:00 90 01/31/18 20:00 Mechanical Ventilator 01/31/18 19:49 78 35 80 01/31/18 19:00 79 29 150/40 (76) 96 01/31/18 18:00 76 29 146/48 (80) 97 01/31/18 18:00 69 30 157/79 (105) 100 01/31/18 17:01 75 34 90 01/31/18 17:00 98.2 73 30 133/45 (74) 98 01/31/18 16:00 60 01/31/18 16:00 69 30 157/79 (105) 100 01/31/18 16:00 Mechanical Ventilator 01/31/18 15:57 70 01/31/18 15:09 65 31 60 01/31/18 15:00 74 29 148/70 (96) 100 01/31/18 14:00 72 28 157/70 (99) 95 01/31/18 14:00 65 30 141/73 (95) 100 01/31/18 13:13 65 34 60 01/31/18 13:00 72 28 157/70 (99) 95 01/31/18 12:32 106 161/97 01/31/18 12:02 78 01/31/18 12:00 Mechanical Ventilator 01/31/18 12:00 98.6 72 30 172/88 (116) 93 01/31/18 12:00 60 Intake and Output 01/31/18 02/01/18 19:00 07:00 Intake Total 1450.000 ml 1540.000 ml Output Total 485 ml 520 ml Balance 965.000 ml 1020.000 ml Free Water 50 ml 110 ml IV Total 930.000 ml 830.000 ml Tube Feeding 420 ml 600 ml Other 50 ml Output Urine Total 485 ml 520 ml Laboratory Tests Test 02/01/18 04:00 White Blood Count 13.1 K/UL (4.8-10.8) H Red Blood Count 3.41 M/UL (4.70-6.10) L Hemoglobin 10.8 G/DL (14.2-18.0) L Hematocrit 32.6 % (42.0-52.0) L Mean Corpuscular Volume 96 FL (80-99) Mean Corpuscular Hemoglobin 31.6 PG (27.0-31.0) H Mean Corpuscular Hemoglobin Concent 33.1 G/DL (32.0-36.0) Red Cell Distribution Width 13.4 % (11.6-14.8) Platelet Count 207 K/UL (150-450) Mean Platelet Volume 8.8 FL (6.5-10.1) Neutrophils (%) (Auto) % (45.0-75.0) Lymphocytes (%) (Auto) % (20.0-45.0) Monocytes (%) (Auto) % (1.0-10.0) Eosinophils (%) (Auto) % (0.0-3.0) Basophils (%) (Auto) % (0.0-2.0) Sodium Level 148 MMOL/L (136-145) H Potassium Level 3.8 MMOL/L (3.5-5.1) Chloride Level 112 MMOL/L (98-107) H Carbon Dioxide Level 31 MMOL/L (21-32) Anion Gap 5 mmol/L (5-15) Blood Urea Nitrogen 36 mg/dL (7-18) H Creatinine 0.8 MG/DL (0.55-1.30) Estimat Glomerular Filtration Rate mL/min (>60) Glucose Level 125 MG/DL (74-106) H Calcium Level 8.1 MG/DL (8.5-10.1) L Phosphorus Level 3.2 MG/DL (2.5-4.9) Magnesium Level 1.8 MG/DL (1.8-2.4) Total Bilirubin 0.7 MG/DL (0.2-1.0) Aspartate Amino Transf (AST/SGOT) 20 U/L (15-37) Alanine Aminotransferase (ALT/SGPT) 16 U/L (12-78) Alkaline Phosphatase 78 U/L (46-116) Total Protein 5.8 G/DL (6.4-8.2) L Albumin 1.4 G/DL (3.4-5.0) L Globulin 4.4 g/dL Albumin/Globulin Ratio 0.3 (1.0-2.7) L Microbiology Date/Time Source Procedure Growth Status 01/29/18 12:10 Sputum Expectorated Gram Stain - Final Complete 01/29/18 12:10 Sputum Culture - Final Asmita Albicans Usual Respiratory Sylvia Complete Objective HEAD AND NECK: No JVD, orally intubated. LUNGS: Coarse rhonchi CARDIOVASCULAR: Regular S1 and S2 with no murmur. ABDOMEN: Soft. EXTREMITIES: No pitting edema, Josep Brar MD Feb 01, 2018 11:49
--- NOTE | 2018-02-01 12:08 | Infectious Diseases Prog Note ---
Assessment/Plan Assessment/Plan A: 1. Sepsis 2. Hypoxemic respiratory failure 3. Acute renal failure. 4. Lactic acidosis. 5. Increase in bilirubin, s/p cholecystectomy 6. Pulmonary fibrosis 7. Pulmonary hypertension 8.troponin leak P; Continue Cefepime Repeat CXR Subjective ROS Limited/Unobtainable: Yes Constitutional: Reports: no symptoms Allergies: Coded Allergies: No Known Allergies (Unverified , 01/24/18) Objective Vital Signs Last 24 Hour Vital Signs Date Time Temp Pulse Resp B/P (MAP) Pulse Ox O2 Delivery O2 Flow Rate FiO2 02/01/18 11:00 77 30 123/55 (77) 91 02/01/18 10:38 70 30 70 02/01/18 10:11 78 133/60 02/01/18 10:00 74 32 147/69 (95) 91 02/01/18 09:54 78 34 70 02/01/18 09:15 95 02/01/18 09:00 80 30 122/60 (80) 91 02/01/18 08:57 115 36 60 02/01/18 08:00 Mechanical Ventilator 02/01/18 08:00 70 02/01/18 08:00 98.2 72 27 129/77 (94) 91 02/01/18 08:00 77 02/01/18 07:20 104 40 60 02/01/18 07:00 75 29 130/60 (83) 91 02/01/18 06:00 74 32 133/60 (84) 91 02/01/18 05:28 71 35 60 02/01/18 05:00 74 32 147/57 (87) 91 02/01/18 04:00 98.0 72 34 135/81 (99) 91 02/01/18 04:00 73 02/01/18 04:00 Mechanical Ventilator 02/01/18 04:00 70 02/01/18 03:19 75 31 65 02/01/18 03:00 72 32 136/61 (86) 97 02/01/18 02:00 72 30 149/69 (95) 97 02/01/18 01:25 107 33 65 02/01/18 01:00 67 30 143/70 (94) 96 02/01/18 00:00 98.3 68 30 163/50 (87) 94 02/01/18 00:00 70 02/01/18 00:00 63 02/01/18 00:00 Mechanical Ventilator 01/31/18 23:31 63 30 70 01/31/18 23:00 64 30 143/53 (83) 93 01/31/18 22:00 67 28 110/47 (68) 92 01/31/18 21:27 63 33 70 01/31/18 21:00 65 31 149/45 (79) 95 01/31/18 20:37 75 148/54 01/31/18 20:00 73 01/31/18 20:00 98.0 75 29 150/40 (76) 96 01/31/18 20:00 90 01/31/18 20:00 Mechanical Ventilator 01/31/18 19:49 78 35 80 01/31/18 19:00 79 29 150/40 (76) 96 01/31/18 18:00 76 29 146/48 (80) 97 01/31/18 18:00 69 30 157/79 (105) 100 01/31/18 17:01 75 34 90 01/31/18 17:00 98.2 73 30 133/45 (74) 98 01/31/18 16:00 60 01/31/18 16:00 69 30 157/79 (105) 100 01/31/18 16:00 Mechanical Ventilator 01/31/18 15:57 70 01/31/18 15:09 65 31 60 01/31/18 15:00 74 29 148/70 (96) 100 01/31/18 14:00 72 28 157/70 (99) 95 01/31/18 14:00 65 30 141/73 (95) 100 01/31/18 13:13 65 34 60 01/31/18 13:00 72 28 157/70 (99) 95 01/31/18 12:32 106 161/97 Height (Feet): 5 Height (Inches): 9.00 Weight (Pounds): 152 HEENT: other - orally intubated Respiratory/Chest: respiratory distress, decreased breath sounds, other - on ventilator Cardiovascular: normal rate Abdomen: soft, non tender, other - NG tube Extremities: other - edema of arms Neurologic/Psychiatric: disoriented, other - on restraint Microbiology Date/Time Source Procedure Growth Status 01/29/18 12:10 Sputum Expectorated Gram Stain - Final Complete 01/29/18 12:10 Sputum Culture - Final Asmita Albicans Usual Respiratory Sylvia Complete Laboratory Tests Test 02/01/18 04:00 White Blood Count 13.1 K/UL (4.8-10.8) H Red Blood Count 3.41 M/UL (4.70-6.10) L Hemoglobin 10.8 G/DL (14.2-18.0) L Hematocrit 32.6 % (42.0-52.0) L Mean Corpuscular Volume 96 FL (80-99) Mean Corpuscular Hemoglobin 31.6 PG (27.0-31.0) H Mean Corpuscular Hemoglobin Concent 33.1 G/DL (32.0-36.0) Red Cell Distribution Width 13.4 % (11.6-14.8) Platelet Count 207 K/UL (150-450) Mean Platelet Volume 8.8 FL (6.5-10.1) Neutrophils (%) (Auto) % (45.0-75.0) Lymphocytes (%) (Auto) % (20.0-45.0) Monocytes (%) (Auto) % (1.0-10.0) Eosinophils (%) (Auto) % (0.0-3.0) Basophils (%) (Auto) % (0.0-2.0) Sodium Level 148 MMOL/L (136-145) H Potassium Level 3.8 MMOL/L (3.5-5.1) Chloride Level 112 MMOL/L (98-107) H Carbon Dioxide Level 31 MMOL/L (21-32) Anion Gap 5 mmol/L (5-15) Blood Urea Nitrogen 36 mg/dL (7-18) H Creatinine 0.8 MG/DL (0.55-1.30) Estimat Glomerular Filtration Rate mL/min (>60) Glucose Level 125 MG/DL (74-106) H Calcium Level 8.1 MG/DL (8.5-10.1) L Phosphorus Level 3.2 MG/DL (2.5-4.9) Magnesium Level 1.8 MG/DL (1.8-2.4) Total Bilirubin 0.7 MG/DL (0.2-1.0) Aspartate Amino Transf (AST/SGOT) 20 U/L (15-37) Alanine Aminotransferase (ALT/SGPT) 16 U/L (12-78) Alkaline Phosphatase 78 U/L (46-116) Total Protein 5.8 G/DL (6.4-8.2) L Albumin 1.4 G/DL (3.4-5.0) L Globulin 4.4 g/dL Albumin/Globulin Ratio 0.3 (1.0-2.7) L Current Medications Medications (Trade) Dose Ordered Sig/Chaka Route PRN Reason Start Time Stop Time Status Last Admin Dose Admin Acetaminophen (Tylenol) 650 mg PRN PRN RECTAL Prn Headache/Temp > 101 01/26/18 22:15 02/23/18 22:14 01/28/18 20:35 Cefepime HCl 1 gm/ Dextrose 55 ml @ 110 mls/hr Q12HR@1000,2200 IVPB 01/30/18 10:00 02/06/18 09:59 02/01/18 10:11 Dextrose/Sodium Chloride 1,000 ml @ 50 mls/hr Q20H IV 01/29/18 10:15 02/28/18 10:14 01/31/18 18:00 Diphenhydramine HCl (Benadryl) 25 mg Q6H PRN IVP Itching 01/26/18 22:15 02/25/18 22:14 Famotidine (Pepcid I.v.) 20 mg Q12HR IVP 01/26/18 10:00 02/24/18 09:59 02/01/18 09:00 Fentanyl Citrate 1000 mcg/Sodium Chloride 100 ml @ 0 mls/hr Q24H IV 01/26/18 10:30 02/02/18 10:29 01/30/18 12:36 Haloperidol Lactate (Haldol) 5 mg Q6H PRN IM Agitation 01/27/18 13:00 02/26/18 12:59 Heparin Sodium (Porcine) (Heparin 5000 units/ml) 5,000 units EVERY 12 HOURS SUBQ 01/27/18 21:00 02/26/18 20:59 02/01/18 09:00 Magnesium Hydroxide (Mom) 30 ml DAILYPRN PRN ORAL Constipation 01/30/18 14:15 03/01/18 14:14 01/30/18 20:26 Metoprolol Tartrate (Lopressor) 50 mg Q12HR ORAL 01/31/18 21:00 02/25/18 20:59 02/01/18 10:11 Midazolam HCl (Versed 2mg/2ml vial) 2 mg EVERY 4 HOURS PRN IVP For Anxiety 01/26/18 10:00 02/25/18 09:59 02/01/18 10:14 Olanzapine (ZyPREXA) 2.5 mg BEDTIME PRN ORAL agitation 01/26/18 21:00 02/25/18 20:59 Ondansetron HCl (Zofran) 4 mg Q6H PRN IVP Nausea & Vomiting 01/26/18 22:15 02/25/18 22:14 Polyethylene Glycol (Miralax) 17 gm BEDTIME NG 01/31/18 21:00 03/02/18 20:59 01/31/18 20:36 Vancomycin HCl (Vanco rx to dose) 1 ea DAILY PRN MISC Per rx protocol 01/26/18 09:45 02/01/18 23:59 Vancomycin HCl 1 gm/Dextrose 275 ml @ 183.708 mls/hr Q12H IVPB 01/26/18 11:00 02/01/18 23:59 01/31/18 23:17 Ha Tello MD Feb 01, 2018 12:08
--- NOTE | 2018-02-01 13:15 | GI Progress Note ---
Assessment/Plan Problems: (1) Constipation ICD Codes: K59.00 - Constipation, unspecified SNOMED: 65942111 (2) Gastroparesis ICD Codes: K31.84 - Gastroparesis SNOMED: 955657608 (3) Abnormal LFTs ICD Codes: R94.5 - Abnormal results of liver function studies SNOMED: 698962302 Status: unchanged Status Narrative Discussed with Dr. Salgado. Assessment/Plan hepatitis panel reviewed >> active Hep A infection anemia work up reviewed >> folate and iron deficiency NGT present recent KUB >> no acute findings pt has ET tube on mech vent start NGTFs per RD to goal, PEG if necessary low dose erythromycin if needed for GI motility OB stool r/o GI bleed monitor H&H, prn transfusions bowel regime >> add colace + miralax ppi folate fu labs The patient was seen and examined at bedside and all new and available data was reviewed in the patients chart. I agree with the above findings, impression and plan. (Patient seen earlier today. Signature stamp does not reflect patient encounter time.). - Peter Salgado MD Subjective Subjective limited Objective Last 24 Hour Vital Signs Date Time Temp Pulse Resp B/P (MAP) Pulse Ox O2 Delivery O2 Flow Rate FiO2 02/01/18 12:00 82 02/01/18 12:00 70 02/01/18 12:00 98.0 72 30 150/67 (94) 96 02/01/18 12:00 Mechanical Ventilator 02/01/18 11:00 77 30 123/55 (77) 91 02/01/18 10:38 70 30 70 02/01/18 10:11 78 133/60 02/01/18 10:00 74 32 147/69 (95) 91 02/01/18 09:54 78 34 70 02/01/18 09:15 95 02/01/18 09:00 80 30 122/60 (80) 91 02/01/18 08:57 115 36 60 02/01/18 08:00 Mechanical Ventilator 02/01/18 08:00 70 02/01/18 08:00 98.2 72 27 129/77 (94) 91 02/01/18 08:00 77 02/01/18 07:20 104 40 60 02/01/18 07:00 75 29 130/60 (83) 91 02/01/18 06:00 74 32 133/60 (84) 91 02/01/18 05:28 71 35 60 02/01/18 05:00 74 32 147/57 (87) 91 02/01/18 04:00 98.0 72 34 135/81 (99) 91 02/01/18 04:00 73 02/01/18 04:00 Mechanical Ventilator 02/01/18 04:00 70 02/01/18 03:19 75 31 65 02/01/18 03:00 72 32 136/61 (86) 97 02/01/18 02:00 72 30 149/69 (95) 97 02/01/18 01:25 107 33 65 02/01/18 01:00 67 30 143/70 (94) 96 02/01/18 00:00 98.3 68 30 163/50 (87) 94 02/01/18 00:00 70 02/01/18 00:00 63 02/01/18 00:00 Mechanical Ventilator 01/31/18 23:31 63 30 70 01/31/18 23:00 64 30 143/53 (83) 93 01/31/18 22:00 67 28 110/47 (68) 92 01/31/18 21:27 63 33 70 01/31/18 21:00 65 31 149/45 (79) 95 01/31/18 20:37 75 148/54 01/31/18 20:00 73 01/31/18 20:00 98.0 75 29 150/40 (76) 96 01/31/18 20:00 90 01/31/18 20:00 Mechanical Ventilator 01/31/18 19:49 78 35 80 01/31/18 19:00 79 29 150/40 (76) 96 01/31/18 18:00 76 29 146/48 (80) 97 01/31/18 18:00 69 30 157/79 (105) 100 01/31/18 17:01 75 34 90 01/31/18 17:00 98.2 73 30 133/45 (74) 98 01/31/18 16:00 60 01/31/18 16:00 69 30 157/79 (105) 100 01/31/18 16:00 Mechanical Ventilator 01/31/18 15:57 70 01/31/18 15:09 65 31 60 01/31/18 15:00 74 29 148/70 (96) 100 01/31/18 14:00 72 28 157/70 (99) 95 01/31/18 14:00 65 30 141/73 (95) 100 Intake and Output 01/31/18 02/01/18 19:00 07:00 Intake Total 1450.000 ml 1540.000 ml Output Total 485 ml 520 ml Balance 965.000 ml 1020.000 ml Free Water 50 ml 110 ml IV Total 930.000 ml 830.000 ml Tube Feeding 420 ml 600 ml Other 50 ml Output Urine Total 485 ml 520 ml Laboratory Tests Test 02/01/18 04:00 White Blood Count 13.1 K/UL (4.8-10.8) H Red Blood Count 3.41 M/UL (4.70-6.10) L Hemoglobin 10.8 G/DL (14.2-18.0) L Hematocrit 32.6 % (42.0-52.0) L Mean Corpuscular Volume 96 FL (80-99) Mean Corpuscular Hemoglobin 31.6 PG (27.0-31.0) H Mean Corpuscular Hemoglobin Concent 33.1 G/DL (32.0-36.0) Red Cell Distribution Width 13.4 % (11.6-14.8) Platelet Count 207 K/UL (150-450) Mean Platelet Volume 8.8 FL (6.5-10.1) Neutrophils (%) (Auto) % (45.0-75.0) Lymphocytes (%) (Auto) % (20.0-45.0) Monocytes (%) (Auto) % (1.0-10.0) Eosinophils (%) (Auto) % (0.0-3.0) Basophils (%) (Auto) % (0.0-2.0) Sodium Level 148 MMOL/L (136-145) H Potassium Level 3.8 MMOL/L (3.5-5.1) Chloride Level 112 MMOL/L (98-107) H Carbon Dioxide Level 31 MMOL/L (21-32) Anion Gap 5 mmol/L (5-15) Blood Urea Nitrogen 36 mg/dL (7-18) H Creatinine 0.8 MG/DL (0.55-1.30) Estimat Glomerular Filtration Rate mL/min (>60) Glucose Level 125 MG/DL (74-106) H Calcium Level 8.1 MG/DL (8.5-10.1) L Phosphorus Level 3.2 MG/DL (2.5-4.9) Magnesium Level 1.8 MG/DL (1.8-2.4) Total Bilirubin 0.7 MG/DL (0.2-1.0) Aspartate Amino Transf (AST/SGOT) 20 U/L (15-37) Alanine Aminotransferase (ALT/SGPT) 16 U/L (12-78) Alkaline Phosphatase 78 U/L (46-116) Total Protein 5.8 G/DL (6.4-8.2) L Albumin 1.4 G/DL (3.4-5.0) L Globulin 4.4 g/dL Albumin/Globulin Ratio 0.3 (1.0-2.7) L Height (Feet): 5 Height (Inches): 9.00 Weight (Pounds): 152 General Appearance: no apparent distress Cardiovascular: normal rate Respiratory/Chest: normal breath sounds, no respiratory distress, other - intubated Abdominal Exam: normal bowel sounds, non tender, soft, other - NGT Extremities: non-tender Willa Woods NP Feb 01, 2018 13:15
[2018-02-01] MEDS ORDERED: Albuterol/Ipratropium 3ml neb HHN PRN (13:30)
--- NOTE | 2018-02-01 13:30 | Pulmonolgy Critical Care Note ---
Critical Care - Asmt/Plan Problems: (1) Pulmonary fibrosis (2) Multifocal pneumonia (3) Respiratory disorder with ventilator dependence (4) Lactic acid acidosis (5) Abnormal LFTs (6) OLEG (acute kidney injury) (7) SIRS (systemic inflammatory response syndrome) (8) UTI (urinary tract infection) Assessment/Plan: ASSESSMENT: The patient is a 77-year-old male, current daily smoker with history of hypertension, back pain, lack of health maintenance, presenting with respiratory illness, bilateral pneumonia, lactic acidosis, abnormal kidney function and renal function likely OLEG, and shock liver. 01/26: Prog hypoxemia, inc WOB, tx'd to ICU, intubated 01/27: Gas exchange better, trops downtrending, LA resolved 01/30: Oxygenation stable, stable on vent PROBLEM LIST: 1. Bilateral parenchymal infiltrates, multilobar pneumonia on top of underlying fibrotic lung disease 2. VDRF 3. Metabolic & respiratory acidosis 4. Likely underlying pulmonary fibrosis and COPD 5. NSTEMI, likely demand ischemia 6. Lactic acidosis - RESOLVED 7. Abnormal creatinine, likely acute kidney injury - IMPROVED 8. Abnormal liver function tests - IMPROVED 9. SIRS 10. History of hypertension. 11. PNEUMONIA 12. Constipation TREATMENT PLAN: Continue ventilatory support/settings reviewed, monitor gas exchange PEEP 5, dec FiO2 to keep SaO2 > 90 Daily SBT RTC and PRN DUOnebs Cefepime (D8), Vanco (D7) per ID, F/U Cx's Cautious TF's, monitor residuals ICU sedation: Fentanyl gtt for RASS - 2, Versed 2 mg IV q4 PRN F/U cardiology recs Monitor volumes and renal function, decreased IVF to 25, lasix 20 IV x 1 now Wound care GI recs, bowel regimen Discuss GOC, FC Px: Hep SQ, H2B D/W family, RN, RT and team CCT 35 Critical Care - Objective Last 24 Hour Vital Signs Date Time Temp Pulse Resp B/P (MAP) Pulse Ox O2 Delivery O2 Flow Rate FiO2 02/01/18 12:00 82 02/01/18 12:00 70 02/01/18 12:00 98.0 72 30 150/67 (94) 96 02/01/18 12:00 Mechanical Ventilator 02/01/18 11:00 77 30 123/55 (77) 91 02/01/18 10:38 70 30 70 02/01/18 10:11 78 133/60 02/01/18 10:00 74 32 147/69 (95) 91 02/01/18 09:54 78 34 70 02/01/18 09:15 95 02/01/18 09:00 80 30 122/60 (80) 91 02/01/18 08:57 115 36 60 02/01/18 08:00 Mechanical Ventilator 02/01/18 08:00 70 02/01/18 08:00 98.2 72 27 129/77 (94) 91 02/01/18 08:00 77 02/01/18 07:20 104 40 60 02/01/18 07:00 75 29 130/60 (83) 91 02/01/18 06:00 74 32 133/60 (84) 91 02/01/18 05:28 71 35 60 02/01/18 05:00 74 32 147/57 (87) 91 02/01/18 04:00 98.0 72 34 135/81 (99) 91 02/01/18 04:00 73 02/01/18 04:00 Mechanical Ventilator 02/01/18 04:00 70 02/01/18 03:19 75 31 65 02/01/18 03:00 72 32 136/61 (86) 97 02/01/18 02:00 72 30 149/69 (95) 97 02/01/18 01:25 107 33 65 02/01/18 01:00 67 30 143/70 (94) 96 02/01/18 00:00 98.3 68 30 163/50 (87) 94 02/01/18 00:00 70 02/01/18 00:00 63 02/01/18 00:00 Mechanical Ventilator 01/31/18 23:31 63 30 70 01/31/18 23:00 64 30 143/53 (83) 93 01/31/18 22:00 67 28 110/47 (68) 92 01/31/18 21:27 63 33 70 01/31/18 21:00 65 31 149/45 (79) 95 01/31/18 20:37 75 148/54 01/31/18 20:00 73 01/31/18 20:00 98.0 75 29 150/40 (76) 96 01/31/18 20:00 90 01/31/18 20:00 Mechanical Ventilator 01/31/18 19:49 78 35 80 01/31/18 19:00 79 29 150/40 (76) 96 01/31/18 18:00 76 29 146/48 (80) 97 01/31/18 18:00 69 30 157/79 (105) 100 01/31/18 17:01 75 34 90 01/31/18 17:00 98.2 73 30 133/45 (74) 98 01/31/18 16:00 60 01/31/18 16:00 69 30 157/79 (105) 100 01/31/18 16:00 Mechanical Ventilator 01/31/18 15:57 70 01/31/18 15:09 65 31 60 01/31/18 15:00 74 29 148/70 (96) 100 01/31/18 14:00 72 28 157/70 (99) 95 01/31/18 14:00 65 30 141/73 (95) 100 Status: awake Condition: critical Lungs: rhonchi Heart: HR/BP stable Abdomen: soft, non-tender, active bowel sounds Extremities: no C/C/E Decubiti: location - sacral Blood Sugars: BS controlled Critical Care - Subjective ROS Limited/Unobtainable: Yes ICU Day: 7 Intubation Day: 7 Interval Events: FiO2 inc 70, PEEP 5 Secretions thin clear Edematous UE . LE Condition: critical IV Access: peripheral - x2 FI02: 70 Vent Support Breath Rate: 30 Vent Support Mode: AC Vent Tidal Volume: 600 Sputum Amount: Moderate PEEP: 5.0 PIP: 34 Fluids: D51/2NS @ 50 Drips: Fent off Tube Feeding Amount: 50 I&O: Intake and Output 01/31/18 02/01/18 19:00 07:00 Intake Total 1450.000 ml 1540.000 ml Output Total 485 ml 520 ml Balance 965.000 ml 1020.000 ml Free Water 50 ml 110 ml IV Total 930.000 ml 830.000 ml Tube Feeding 420 ml 600 ml Other 50 ml Output Urine Total 485 ml 520 ml Subjective: IRENE ET-Tube: 7.5 ET Position: 23 Labs: Laboratory Tests Test 02/01/18 04:00 White Blood Count 13.1 K/UL (4.8-10.8) H Red Blood Count 3.41 M/UL (4.70-6.10) L Hemoglobin 10.8 G/DL (14.2-18.0) L Hematocrit 32.6 % (42.0-52.0) L Mean Corpuscular Volume 96 FL (80-99) Mean Corpuscular Hemoglobin 31.6 PG (27.0-31.0) H Mean Corpuscular Hemoglobin Concent 33.1 G/DL (32.0-36.0) Red Cell Distribution Width 13.4 % (11.6-14.8) Platelet Count 207 K/UL (150-450) Mean Platelet Volume 8.8 FL (6.5-10.1) Neutrophils (%) (Auto) % (45.0-75.0) Lymphocytes (%) (Auto) % (20.0-45.0) Monocytes (%) (Auto) % (1.0-10.0) Eosinophils (%) (Auto) % (0.0-3.0) Basophils (%) (Auto) % (0.0-2.0) Sodium Level 148 MMOL/L (136-145) H Potassium Level 3.8 MMOL/L (3.5-5.1) Chloride Level 112 MMOL/L (98-107) H Carbon Dioxide Level 31 MMOL/L (21-32) Anion Gap 5 mmol/L (5-15) Blood Urea Nitrogen 36 mg/dL (7-18) H Creatinine 0.8 MG/DL (0.55-1.30) Estimat Glomerular Filtration Rate mL/min (>60) Glucose Level 125 MG/DL (74-106) H Calcium Level 8.1 MG/DL (8.5-10.1) L Phosphorus Level 3.2 MG/DL (2.5-4.9) Magnesium Level 1.8 MG/DL (1.8-2.4) Total Bilirubin 0.7 MG/DL (0.2-1.0) Aspartate Amino Transf (AST/SGOT) 20 U/L (15-37) Alanine Aminotransferase (ALT/SGPT) 16 U/L (12-78) Alkaline Phosphatase 78 U/L (46-116) Total Protein 5.8 G/DL (6.4-8.2) L Albumin 1.4 G/DL (3.4-5.0) L Globulin 4.4 g/dL Albumin/Globulin Ratio 0.3 (1.0-2.7) L Lev Johnson MD Feb 01, 2018 13:30
--- NOTE | 2018-02-01 16:04 | Diagnostic Imaging Report ---
Indication: Shortness of breath Technique: One view of the chest Comparison: 01/29/2018 Findings: Stable satisfactory positions of endotracheal and nasogastric tubes. Extensive interstitial and airspace disease persists, unchanged allowing for differences in exposure technique. Normal heart size. There may be small bilateral pleural effusions Impression: Unchanged, over 3 days, findings as above.
--- NOTE | 2018-02-01 16:15 | General Surgery Progress Note ---
General Surgery-Progress Note Subjective Additional Comments leukocytosis worsening. 13k today from 11k yesterday. wounds stable. still in ICU Objective Last 24 Hour Vital Signs Date Time Temp Pulse Resp B/P (MAP) Pulse Ox O2 Delivery O2 Flow Rate FiO2 02/01/18 14:45 83 34 70 02/01/18 13:28 65 33 70 02/01/18 12:00 82 02/01/18 12:00 70 02/01/18 12:00 98.0 72 30 150/67 (94) 96 02/01/18 12:00 Mechanical Ventilator 02/01/18 11:00 77 30 123/55 (77) 91 02/01/18 10:38 70 30 70 02/01/18 10:11 78 133/60 02/01/18 10:00 74 32 147/69 (95) 91 02/01/18 09:54 78 34 70 02/01/18 09:15 95 02/01/18 09:00 80 30 122/60 (80) 91 02/01/18 08:57 115 36 60 02/01/18 08:00 Mechanical Ventilator 02/01/18 08:00 70 02/01/18 08:00 98.2 72 27 129/77 (94) 91 02/01/18 08:00 77 02/01/18 07:20 104 40 60 02/01/18 07:00 75 29 130/60 (83) 91 02/01/18 06:00 74 32 133/60 (84) 91 02/01/18 05:28 71 35 60 02/01/18 05:00 74 32 147/57 (87) 91 02/01/18 04:00 98.0 72 34 135/81 (99) 91 02/01/18 04:00 73 02/01/18 04:00 Mechanical Ventilator 02/01/18 04:00 70 02/01/18 03:19 75 31 65 02/01/18 03:00 72 32 136/61 (86) 97 02/01/18 02:00 72 30 149/69 (95) 97 02/01/18 01:25 107 33 65 02/01/18 01:00 67 30 143/70 (94) 96 02/01/18 00:00 98.3 68 30 163/50 (87) 94 02/01/18 00:00 70 02/01/18 00:00 63 12/12/18 00:00 Mechanical Ventilator 01/31/18 23:31 63 30 70 01/31/18 23:00 64 30 143/53 (83) 93 01/31/18 22:00 67 28 110/47 (68) 92 01/31/18 21:27 63 33 70 01/31/18 21:00 65 31 149/45 (79) 95 01/31/18 20:37 75 148/54 01/31/18 20:00 73 01/31/18 20:00 98.0 75 29 150/40 (76) 96 01/31/18 20:00 90 01/31/18 20:00 Mechanical Ventilator 01/31/18 19:49 78 35 80 01/31/18 19:00 79 29 150/40 (76) 96 01/31/18 18:00 76 29 146/48 (80) 97 01/31/18 18:00 69 30 157/79 (105) 100 01/31/18 17:01 75 34 90 01/31/18 17:00 98.2 73 30 133/45 (74) 98 I&O Intake and Output 01/31/18 02/01/18 19:00 07:00 Intake Total 1450.000 ml 1540.000 ml Output Total 485 ml 520 ml Balance 965.000 ml 1020.000 ml Free Water 50 ml 110 ml IV Total 930.000 ml 830.000 ml Tube Feeding 420 ml 600 ml Other 50 ml Output Urine Total 485 ml 520 ml Dressing: other Wound: other Drains: other Cardiovascular: RSR Respiratory: decreased breath sounds Abdomen: soft, non-tender, present bowel sounds Extremities: no cyanosis, other Laboratory Tests Test 02/01/18 04:00 White Blood Count 13.1 K/UL (4.8-10.8) H Red Blood Count 3.41 M/UL (4.70-6.10) L Hemoglobin 10.8 G/DL (14.2-18.0) L Hematocrit 32.6 % (42.0-52.0) L Mean Corpuscular Volume 96 FL (80-99) Mean Corpuscular Hemoglobin 31.6 PG (27.0-31.0) H Mean Corpuscular Hemoglobin Concent 33.1 G/DL (32.0-36.0) Red Cell Distribution Width 13.4 % (11.6-14.8) Platelet Count 207 K/UL (150-450) Mean Platelet Volume 8.8 FL (6.5-10.1) Neutrophils (%) (Auto) % (45.0-75.0) Lymphocytes (%) (Auto) % (20.0-45.0) Monocytes (%) (Auto) % (1.0-10.0) Eosinophils (%) (Auto) % (0.0-3.0) Basophils (%) (Auto) % (0.0-2.0) Sodium Level 148 MMOL/L (136-145) H Potassium Level 3.8 MMOL/L (3.5-5.1) Chloride Level 112 MMOL/L (98-107) H Carbon Dioxide Level 31 MMOL/L (21-32) Anion Gap 5 mmol/L (5-15) Blood Urea Nitrogen 36 mg/dL (7-18) H Creatinine 0.8 MG/DL (0.55-1.30) Estimat Glomerular Filtration Rate mL/min (>60) Glucose Level 125 MG/DL (74-106) H Calcium Level 8.1 MG/DL (8.5-10.1) L Phosphorus Level 3.2 MG/DL (2.5-4.9) Magnesium Level 1.8 MG/DL (1.8-2.4) Total Bilirubin 0.7 MG/DL (0.2-1.0) Aspartate Amino Transf (AST/SGOT) 20 U/L (15-37) Alanine Aminotransferase (ALT/SGPT) 16 U/L (12-78) Alkaline Phosphatase 78 U/L (46-116) Total Protein 5.8 G/DL (6.4-8.2) L Albumin 1.4 G/DL (3.4-5.0) L Globulin 4.4 g/dL Albumin/Globulin Ratio 0.3 (1.0-2.7) L Plan Problems: (1) Decubitus ulcer of sacral region, stage 3 Assessment & Plan: Stage III full thickness pressure injury sacrum present on admission (L)2cm x (W)1.8cm ,wound bed with 80% yellow slough ,20% granular Borders slightly macerated. Non-blanching erythema without elevation in skin temp, or induration periwound. NO odor noted. Abrasions noted to R elbow (L)3.2cm x (W)1.9cm.Wound with Biofilm ,erythema al; lynn borders .Periwound clean and intact. Abrasion noted to L elbow(L)5.5cm x (W)1.6cm ,biofim noted to wound bed .erythema along borders .Periwound without erythema or elevation in skin temp. Abrasion lateral L knee with dry scab. Abrasion medial R knee with dry scab. Bilat heels boggy with non-blanching erythema. Non-tender when palpated. Pt repositioned with pillow on his side but restless and repositioned self on back. given critical condition will continue with maximal efforts to reduce worsening wounds as in this condition may deteriorate Tx.Plan: Cleanse R and L elbows with Saline.Apply Silvasorb Gel to both elbows .Cover with Optifoam drsg .Change every 3 Days and prn. Cleanse Sacral Pressure injury with Saline.Apply Therahoney .Cavilon periwound.Cover with Optifoam drsg Daily and prn. Apply Cavilon to Both heels.Cover with Optifoam drsg .Change Every 7 days and prn. Cavilon to abrasions R and L lower ext.Cover with Optifoam change every 7 days and prn. Off-load heels with pillow. Reposition at least every 2 hours or as tolerated. Surface support mattress. (2) Abnormal LFTs Assessment & Plan: US reviewed - absent GB dilated ducts CT reviewed - dilated duct without notable obstruction LFT's noted and elevated t bili trending down no jaundice AST/ALT nml Alk phos nml leukocytosis trending down -no acute surgical intervention necessary -t bili and d bili correlate. unlikely obstructive at this time. especially with history of cholecystectomy prior -trend labs thank you (3) Severe sepsis Myke Merino Feb 01, 2018 16:15
[2018-02-01] MEDS: Albuterol/Ipratropium 3ml neb HHN SCH (18:59)
[2018-02-01] MEDS: Miralax 17gm pkt NG SCH (20:39)
--- NOTE | 2018-02-01 21:19 | General Progress Note ---
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 (2) Renal insufficiency ICD Codes: N28.9 - Disorder of kidney and ureter, unspecified; R65.20 - Severe sepsis without septic shock SNOMED: 310105086, 831698921 (3) UTI (urinary tract infection) ICD Codes: N39.0 - Urinary tract infection, site not specified SNOMED: 65110862, 558102472 Qualifiers: Qualified Codes: N39.0 - Urinary tract infection, site not specified (4) Pneumonia ICD Codes: J18.9 - Pneumonia, unspecified organism SNOMED: 328277653 Qualifiers: Qualified Codes: J18.1 - Lobar pneumonia, unspecified organism (5) Severe sepsis ICD Codes: A41.9 - Sepsis, unspecified organism; R65.20 - Severe sepsis without septic shock SNOMED: 68474334 (6) Hypoxia ICD Codes: R09.02 - Hypoxemia; R65.20 - Severe sepsis without septic shock SNOMED: 556309522, 873726836 (7) Pulmonary fibrosis ICD Codes: J84.10 - Pulmonary fibrosis, unspecified SNOMED: 61840657 (8) Lactic acid acidosis ICD Codes: E87.2 - Acidosis SNOMED: 82652443 (9) OLEG (acute kidney injury) ICD Codes: N17.9 - Acute kidney failure, unspecified SNOMED: 54832616 (10) Abnormal LFTs ICD Codes: R94.5 - Abnormal results of liver function studies SNOMED: 943063039 Status: unchanged Assessment/Plan severe pulmonary firbrosis resp failure pna sepsis trach per pulmonary abx per id no improving Subjective ROS Limited/Unobtainable: Yes Allergies: Coded Allergies: No Known Allergies (Unverified , 01/24/18) Objective Last 24 Hour Vital Signs Date Time Temp Pulse Resp B/P (MAP) Pulse Ox O2 Delivery O2 Flow Rate FiO2 02/01/18 20:39 67 118/53 02/01/18 20:00 Mechanical Ventilator 02/01/18 20:00 70 02/01/18 19:09 86 30 96 Mechanical Ventilator 70 02/01/18 19:00 75 30 119/70 (86) 93 02/01/18 19:00 29 Mechanical Ventilator 70 02/01/18 18:59 70 02/01/18 18:59 72 30 70 02/01/18 18:59 72 30 93 Mechanical Ventilator 70 02/01/18 18:00 73 30 123/55 (77) 93 02/01/18 18:00 29 Mechanical Ventilator 70 02/01/18 17:00 77 30 122/77 (92) 91 02/01/18 16:59 98.0 02/01/18 16:46 74 34 70 02/01/18 16:29 30 Mechanical Ventilator 70 02/01/18 16:00 Mechanical Ventilator 02/01/18 16:00 70 02/01/18 16:00 98.0 72 30 130/67 (88) 96 02/01/18 16:00 80 02/01/18 15:00 80 30 136/70 (92) 92 02/01/18 14:45 83 34 70 02/01/18 14:00 77 30 132/55 (80) 91 02/01/18 13:28 65 33 70 02/01/18 13:00 75 30 130/55 (80) 98 02/01/18 12:00 82 02/01/18 12:00 70 02/01/18 12:00 98.0 72 30 150/67 (94) 96 02/01/18 12:00 Mechanical Ventilator 02/01/18 11:00 77 30 123/55 (77) 91 02/01/18 10:38 70 30 70 02/01/18 10:11 78 133/60 02/01/18 10:00 74 32 147/69 (95) 91 02/01/18 09:54 78 34 70 02/01/18 09:15 95 02/01/18 09:00 80 30 122/60 (80) 91 02/01/18 08:57 115 36 60 02/01/18 08:00 Mechanical Ventilator 02/01/18 08:00 70 02/01/18 08:00 98.2 72 27 129/77 (94) 91 02/01/18 08:00 77 02/01/18 07:20 104 40 60 02/01/18 07:00 75 29 130/60 (83) 91 02/01/18 06:00 74 32 133/60 (84) 91 02/01/18 05:28 71 35 60 02/01/18 05:00 74 32 147/57 (87) 91 02/01/18 04:00 98.0 72 34 135/81 (99) 91 02/01/18 04:00 73 02/01/18 04:00 Mechanical Ventilator 02/01/18 04:00 70 02/01/18 03:19 75 31 65 02/01/18 03:00 72 32 136/61 (86) 97 02/01/18 02:00 72 30 149/69 (95) 97 02/01/18 01:25 107 33 65 02/01/18 01:00 67 30 143/70 (94) 96 02/01/18 00:00 98.3 68 30 163/50 (87) 94 02/01/18 00:00 70 02/01/18 00:00 63 02/01/18 00:00 Mechanical Ventilator 01/31/18 23:31 63 30 70 01/31/18 23:00 64 30 143/53 (83) 93 01/31/18 22:00 67 28 110/47 (68) 92 01/31/18 21:27 63 33 70 Intake and Output 01/31/18 02/01/18 19:00 07:00 Intake Total 1450.000 ml 1540.000 ml Output Total 485 ml 520 ml Balance 965.000 ml 1020.000 ml Free Water 50 ml 110 ml IV Total 930.000 ml 830.000 ml Tube Feeding 420 ml 600 ml Other 50 ml Output Urine Total 485 ml 520 ml Laboratory Tests 02/01/18 04:00: White Blood Count 13.1H, Red Blood Count 3.41L, Hemoglobin 10.8L, Hematocrit 32.6L, Mean Corpuscular Volume 96, Mean Corpuscular Hemoglobin 31.6H, Mean Corpuscular Hemoglobin Concent 33.1, Red Cell Distribution Width 13.4, Platelet Count 207, Mean Platelet Volume 8.8, Neutrophils (%) (Auto) , Lymphocytes (%) ( Auto) , Monocytes (%) (Auto) , Eosinophils (%) (Auto) , Basophils (%) (Auto) , Sodium Level 148H, Potassium Level 3.8, Chloride Level 112H, Carbon Dioxide Level 31, Anion Gap 5, Blood Urea Nitrogen 36H, Creatinine 0.8, Estimat Glomerular Filtration Rate , Glucose Level 125H, Calcium Level 8.1L, Phosphorus Level 3.2, Magnesium Level 1.8, Total Bilirubin 0.7, Aspartate Amino Transf (AST /SGOT) 20, Alanine Aminotransferase (ALT/SGPT) 16, Alkaline Phosphatase 78, Total Protein 5.8L, Albumin 1.4L, Globulin 4.4, Albumin/Globulin Ratio 0.3L Height (Feet): 5 Height (Inches): 9.00 Weight (Pounds): 152 General Appearance: confused Abdomen: soft Edwin Corrigan MD Feb 01, 2018 21:19
[2018-02-02] VITALS (31 sets, daily range): BP systolic 95–152; BP diastolic 47–72
[2018-02-02] MEDS: Albuterol/Ipratropium 3ml neb HHN SCH ×4 (00:49→19:06)
[2018-02-02] MEDS: Midazolam 2mg/2ml Inj IVP PRN (02:16)
[2018-02-02] MEDS: D5 1/2NS 1,000 ML IV SCH (02:17)
[2018-02-02 05:14] LABS: HEMATOCRIT 28.6 % (42.0-52.0); HEMOGLOBIN 9.5 G/DL (14.2-18.0); MEAN CORPUSCULAR VOLUME 96 FL (80-99); PLATELET COUNT 191 K/UL (150-450); RED BLOOD COUNT 2.99 M/UL (4.70-6.10); RED CELL DISTRIBUTION WIDTH 13.6 % (11.6-14.8); WHITE BLOOD COUNT 12.2 K/UL (4.8-10.8)
[2018-02-02 05:51] LABS: ALANINE AMINOTRANSFERASE 12 U/L (12-78); ALBUMIN 1.3 G/DL (3.4-5.0); ALBUMIN/GLOBULIN RATIO 0.3 (1.0-2.7); ALKALINE PHOSPHATASE 64 U/L (46-116); ANION GAP 2 mmol/L (5-15); ASPARTATE AMINO TRANSFERASE 19 U/L (15-37); BILIRUBIN,TOTAL 0.7 MG/DL (0.2-1.0); BLOOD UREA NITROGEN 36 mg/dL (7-18); CARBON DIOXIDE 34 MMOL/L (21-32); CHLORIDE 112 MMOL/L (98-107); CREATININE 0.8 MG/DL (0.55-1.30); POTASSIUM 3.8 MMOL/L (3.5-5.1); SODIUM 148 MMOL/L (136-145)
[2018-02-02] MEDS: Milk of Magnesia 30ml Ud ORAL PRN (07:00)
--- NOTE | 2018-02-02 07:35 | General Progress Note ---
Assessment/Plan Assessment/Plan ASSESSMENT AND RECOMMENDATIONS # Leukocytosis. Secondary to sepsis and pna. is on abx at this time --> WBC improving 16k--> 12k-->13k-->12.2k --> Peripheral has been ordered and reviewed and no blasts are noted --> Medications have been reviewed --> Imaging has been reviewed, reveals apparent worsening of bilateral parenchymal disease --> Blood cultures and urine cultures are reviewed as well --> On abx, empiric treatment per id # Anemia of chronic disease due to underlying chronic medical issues, multifactorial. --> Given downtrending hgb, will order a anemia panel --> Cont to monitor for stability --> hgb 13-->11.2-->11-->9.5 # Coagulopathy is now off hep gtt --> order hepatitis and hiv --> ptt and mixing study # Respiratory failure is on a vent --> per pulm --> extubate soon per Alex # Pneumonia. s/p abx # Urinary tract infection. --> s/p abx # Status post recurrent falls. # Sepsis. # Dehydration. # Afib and now in sr --> as per cards GREATLY APPRECIATE CONSULTATION. Subjective ROS Limited/Unobtainable: Yes Allergies: Coded Allergies: No Known Allergies (Unverified , 01/24/18) Subjective Pt remains in ICU, on vent. No acute events besides overnight was fighting vent. Objective Last 24 Hour Vital Signs Date Time Temp Pulse Resp B/P (MAP) Pulse Ox O2 Delivery O2 Flow Rate FiO2 02/02/18 07:19 80 30 97 Mechanical Ventilator 70 02/02/18 07:19 80 02/02/18 07:19 75 30 80 02/02/18 06:30 76 28 152/62 (92) 92 02/02/18 06:00 80 02/02/18 06:00 Mechanical Ventilator 80 02/02/18 06:00 77 27 152/62 (92) 91 02/02/18 05:30 76 26 152/62 (92) 94 02/02/18 05:10 75 32 80 02/02/18 05:00 30 Mechanical Ventilator 70 02/02/18 05:00 69 26 137/67 (90) 94 02/02/18 04:30 69 26 99/49 (66) 94 02/02/18 04:00 Mechanical Ventilator 02/02/18 04:00 98.0 67 27 99/49 (66) 94 02/02/18 04:00 94 02/02/18 04:00 Mechanical Ventilator 70 02/02/18 04:00 70 02/02/18 03:30 66 23 113/57 (75) 95 02/02/18 03:00 64 23 104/60 (75) 95 02/02/18 03:00 30 Mechanical Ventilator 70 02/02/18 02:58 61 30 70 02/02/18 02:30 67 23 104/67 (79) 95 02/02/18 02:00 64 23 95/47 (63) 95 02/02/18 02:00 30 Mechanical Ventilator 70 02/02/18 01:30 65 23 131/67 (88) 95 02/02/18 01:00 62 29 136/60 (85) 95 02/02/18 01:00 30 Mechanical Ventilator 70 02/02/18 00:59 73 31 98 Mechanical Ventilator 70 02/02/18 00:49 67 30 96 Mechanical Ventilator 70 02/02/18 00:49 70 02/02/18 00:49 67 30 70 02/02/18 00:30 64 29 106/49 (68) 95 02/02/18 00:00 63 02/02/18 00:00 98.5 66 29 130/61 (84) 95 02/02/18 00:00 30 Mechanical Ventilator 70 02/02/18 00:00 Mechanical Ventilator 02/01/18 23:30 66 29 133/53 (79) 94 02/01/18 23:00 30 Mechanical Ventilator 70 02/01/18 23:00 64 30 123/57 (79) 95 02/01/18 22:48 90 32 70 02/01/18 22:30 63 27 135/58 (83) 95 02/01/18 22:00 62 26 142/61 (88) 95 02/01/18 22:00 30 Mechanical Ventilator 70 02/01/18 21:30 63 27 139/59 (85) 97 02/01/18 21:20 74 30 70 02/01/18 21:00 71 30 120/59 (79) 97 02/01/18 21:00 30 Mechanical Ventilator 70 02/01/18 20:39 67 118/53 02/01/18 20:30 68 30 107/51 (69) 95 02/01/18 20:00 Mechanical Ventilator 02/01/18 20:00 98.1 70 30 115/56 (75) 94 02/01/18 20:00 60 02/01/18 20:00 70 02/01/18 20:00 30 Mechanical Ventilator 70.0 02/01/18 19:30 71 30 129/55 (79) 93 02/01/18 19:09 86 30 96 Mechanical Ventilator 70 02/01/18 19:00 75 30 119/70 (86) 93 02/01/18 19:00 29 Mechanical Ventilator 70 02/01/18 18:59 70 02/01/18 18:59 72 30 70 02/01/18 18:59 72 30 93 Mechanical Ventilator 70 02/01/18 18:00 73 30 123/55 (77) 93 02/01/18 18:00 29 Mechanical Ventilator 70 02/01/18 17:00 77 30 122/77 (92) 91 02/01/18 16:59 98.0 02/01/18 16:46 74 34 70 02/01/18 16:29 30 Mechanical Ventilator 70 02/01/18 16:00 Mechanical Ventilator 02/01/18 16:00 70 02/01/18 16:00 98.0 72 30 130/67 (88) 96 02/01/18 16:00 80 02/01/18 15:00 80 30 136/70 (92) 92 02/01/18 14:45 83 34 70 02/01/18 14:00 77 30 132/55 (80) 91 02/01/18 13:28 65 33 70 02/01/18 13:00 75 30 130/55 (80) 98 02/01/18 12:00 82 02/01/18 12:00 70 02/01/18 12:00 98.0 72 30 150/67 (94) 96 02/01/18 12:00 Mechanical Ventilator 02/01/18 11:00 77 30 123/55 (77) 91 02/01/18 10:38 70 30 70 18 10:11 78 133/60 02/01/18 10:00 74 32 147/69 (95) 91 02/01/18 09:54 78 34 70 02/01/18 09:15 95 12/12/18 09:00 80 30 122/60 (80) 91 02/01/18 08:57 115 36 60 02/01/18 08:00 Mechanical Ventilator 02/01/18 08:00 70 02/01/18 08:00 98.2 72 27 129/77 (94) 91 02/01/18 08:00 77 Intake and Output 02/01/18 02/02/18 19:00 07:00 Intake Total 1062.416 ml 1032 ml Output Total 950 ml 750 ml Balance 112.416 ml 282 ml Free Water 90 ml IV Total 462.416 ml 392 ml Tube Feeding 600 ml 550 ml Output Urine Total 950 ml 750 ml Laboratory Tests 02/02/18 03:40: White Blood Count 12.2H, Red Blood Count 2.99L, Hemoglobin 9.5L, Hematocrit 28.6L, Mean Corpuscular Volume 96, Mean Corpuscular Hemoglobin 31.8H, Mean Corpuscular Hemoglobin Concent 33.2, Red Cell Distribution Width 13.6, Platelet Count 191, Mean Platelet Volume 9.1, Neutrophils (%) (Auto) , Lymphocytes (%) ( Auto) , Monocytes (%) (Auto) , Eosinophils (%) (Auto) , Basophils (%) (Auto) , Sodium Level 148H, Potassium Level 3.8, Chloride Level 112H, Carbon Dioxide Level 34H, Anion Gap 2L, Blood Urea Nitrogen 36H, Creatinine 0.8, Estimat Glomerular Filtration Rate , Glucose Level 118H, Calcium Level 8.0L, Total Bilirubin 0.7, Aspartate Amino Transf (AST/SGOT) 19, Alanine Aminotransferase ( ALT/SGPT) 12, Alkaline Phosphatase 64, Total Protein 5.2L, Albumin 1.3L, Globulin 3.9, Albumin/Globulin Ratio 0.3L Height (Feet): 5 Height (Inches): 9.00 Weight (Pounds): 152 Objective Status: awake Condition: critical Lungs: rhonchi ++ VENT Heart: HR/BP stable Abdomen: soft, non-tender, active bowel sounds Extremities: no C/C/E Decubiti: location - sacral Blood Sugars: BS controlled Fabian Yung MD Feb 02, 2018 07:35
[2018-02-02] MEDS: Metoprolol Tartrate 50mg tab ORAL SCH ×2 (08:42→20:25)
[2018-02-02] MEDS: Heparin 5000 units/ml inj SUBQ SCH ×2 (08:43→20:29)
[2018-02-02] MEDS: Cefepime HCl 1 GM in D5W 55 ML IVPB SCH ×2 (08:44→22:00)
--- NOTE | 2018-02-02 10:27 | General Progress Note ---
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 (2) Renal insufficiency ICD Codes: N28.9 - Disorder of kidney and ureter, unspecified; R65.20 - Severe sepsis without septic shock SNOMED: 352125738, 883873084 (3) UTI (urinary tract infection) ICD Codes: N39.0 - Urinary tract infection, site not specified SNOMED: 42343925, 122604775 Qualifiers: Qualified Codes: N39.0 - Urinary tract infection, site not specified (4) Pneumonia ICD Codes: J18.9 - Pneumonia, unspecified organism SNOMED: 711694507 Qualifiers: Qualified Codes: J18.1 - Lobar pneumonia, unspecified organism (5) Severe sepsis ICD Codes: A41.9 - Sepsis, unspecified organism; R65.20 - Severe sepsis without septic shock SNOMED: 98353442 (6) Hypoxia ICD Codes: R09.02 - Hypoxemia; R65.20 - Severe sepsis without septic shock SNOMED: 832018418, 601724059 (7) Pulmonary fibrosis ICD Codes: J84.10 - Pulmonary fibrosis, unspecified SNOMED: 09130967 (8) Lactic acid acidosis ICD Codes: E87.2 - Acidosis SNOMED: 95364182 (9) OLEG (acute kidney injury) ICD Codes: N17.9 - Acute kidney failure, unspecified SNOMED: 21897210 (10) Abnormal LFTs ICD Codes: R94.5 - Abnormal results of liver function studies SNOMED: 581998310 Status: progressing Assessment/Plan severe pulmonary firbrosis resp failure pna sepsis trach per pulmonary reviewed chart and labs and meds poor prognosis abx per id afebrile Subjective ROS Limited/Unobtainable: Yes Allergies: Coded Allergies: No Known Allergies (Unverified , 01/24/18) Objective Last 24 Hour Vital Signs Date Time Temp Pulse Resp B/P (MAP) Pulse Ox O2 Delivery O2 Flow Rate FiO2 02/02/18 09:19 72 30 80 02/02/18 08:42 79 152/62 02/02/18 07:28 79 30 98 Mechanical Ventilator 80 02/02/18 07:19 80 30 97 Mechanical Ventilator 70 02/02/18 07:19 80 02/02/18 07:19 75 30 80 02/02/18 06:30 76 28 152/62 (92) 92 02/02/18 06:00 80 02/02/18 06:00 Mechanical Ventilator 80 02/02/18 06:00 77 27 152/62 (92) 91 02/02/18 05:30 76 26 152/62 (92) 94 02/02/18 05:10 75 32 80 02/02/18 05:00 30 Mechanical Ventilator 70 02/02/18 05:00 69 26 137/67 (90) 94 02/02/18 04:30 69 26 99/49 (66) 94 02/02/18 04:00 Mechanical Ventilator 02/02/18 04:00 98.0 67 27 99/49 (66) 94 02/02/18 04:00 94 02/02/18 04:00 Mechanical Ventilator 70 02/02/18 04:00 70 02/02/18 03:30 66 23 113/57 (75) 95 02/02/18 03:00 64 23 104/60 (75) 95 02/02/18 03:00 30 Mechanical Ventilator 70 02/02/18 02:58 61 30 70 02/02/18 02:30 67 23 104/67 (79) 95 02/02/18 02:00 64 23 95/47 (63) 95 02/02/18 02:00 30 Mechanical Ventilator 70 02/02/18 01:30 65 23 131/67 (88) 95 02/02/18 01:00 62 29 136/60 (85) 95 02/02/18 01:00 30 Mechanical Ventilator 70 02/02/18 00:59 73 31 98 Mechanical Ventilator 70 02/02/18 00:49 67 30 96 Mechanical Ventilator 70 02/02/18 00:49 70 02/02/18 00:49 67 30 70 02/02/18 00:30 64 29 106/49 (68) 95 02/02/18 00:00 63 02/02/18 00:00 98.5 66 29 130/61 (84) 95 02/02/18 00:00 30 Mechanical Ventilator 70 02/02/18 00:00 Mechanical Ventilator 02/01/18 23:30 66 29 133/53 (79) 94 02/01/18 23:00 30 Mechanical Ventilator 70 02/01/18 23:00 64 30 123/57 (79) 95 02/01/18 22:48 90 32 70 12/12/18 22:30 63 27 135/58 (83) 95 02/01/18 22:00 62 26 142/61 (88) 95 02/01/18 22:00 30 Mechanical Ventilator 70 02/01/18 21:30 63 27 139/59 (85) 97 02/01/18 21:20 74 30 70 02/01/18 21:00 71 30 120/59 (79) 97 02/01/18 21:00 30 Mechanical Ventilator 70 02/01/18 20:39 67 118/53 02/01/18 20:30 68 30 107/51 (69) 95 02/01/18 20:00 Mechanical Ventilator 02/01/18 20:00 98.1 70 30 115/56 (75) 94 02/01/18 20:00 60 02/01/18 20:00 70 02/01/18 20:00 30 Mechanical Ventilator 70.0 02/01/18 19:30 71 30 129/55 (79) 93 02/01/18 19:09 86 30 96 Mechanical Ventilator 70 02/01/18 19:00 75 30 119/70 (86) 93 02/01/18 19:00 29 Mechanical Ventilator 70 02/01/18 18:59 70 02/01/18 18:59 72 30 70 02/01/18 18:59 72 30 93 Mechanical Ventilator 70 02/01/18 18:00 73 30 123/55 (77) 93 02/01/18 18:00 29 Mechanical Ventilator 70 02/01/18 17:00 77 30 122/77 (92) 91 02/01/18 16:59 98.0 02/01/18 16:46 74 34 70 02/01/18 16:29 30 Mechanical Ventilator 70 02/01/18 16:00 Mechanical Ventilator 02/01/18 16:00 70 02/01/18 16:00 98.0 72 30 130/67 (88) 96 02/01/18 16:00 80 02/01/18 15:00 80 30 136/70 (92) 92 02/01/18 14:45 83 34 70 02/01/18 14:00 77 30 132/55 (80) 91 02/01/18 13:28 65 33 70 02/01/18 13:00 75 30 130/55 (80) 98 02/01/18 12:00 82 02/01/18 12:00 70 02/01/18 12:00 98.0 72 30 150/67 (94) 96 02/01/18 12:00 Mechanical Ventilator 02/01/18 11:00 77 30 123/55 (77) 91 02/01/18 10:38 70 30 70 Intake and Output 02/01/18 02/02/18 19:00 07:00 Intake Total 1062.416 ml 1032 ml Output Total 950 ml 750 ml Balance 112.416 ml 282 ml Free Water 90 ml IV Total 462.416 ml 392 ml Tube Feeding 600 ml 550 ml Output Urine Total 950 ml 750 ml Laboratory Tests 02/02/18 03:40: White Blood Count 12.2H, Red Blood Count 2.99L, Hemoglobin 9.5L, Hematocrit 28.6L, Mean Corpuscular Volume 96, Mean Corpuscular Hemoglobin 31.8H, Mean Corpuscular Hemoglobin Concent 33.2, Red Cell Distribution Width 13.6, Platelet Count 191, Mean Platelet Volume 9.1, Neutrophils (%) (Auto) , Lymphocytes (%) ( Auto) , Monocytes (%) (Auto) , Eosinophils (%) (Auto) , Basophils (%) (Auto) , Sodium Level 148H, Potassium Level 3.8, Chloride Level 112H, Carbon Dioxide Level 34H, Anion Gap 2L, Blood Urea Nitrogen 36H, Creatinine 0.8, Estimat Glomerular Filtration Rate , Glucose Level 118H, Calcium Level 8.0L, Total Bilirubin 0.7, Aspartate Amino Transf (AST/SGOT) 19, Alanine Aminotransferase ( ALT/SGPT) 12, Alkaline Phosphatase 64, Total Protein 5.2L, Albumin 1.3L, Globulin 3.9, Albumin/Globulin Ratio 0.3L Height (Feet): 5 Height (Inches): 9.00 Weight (Pounds): 152 General Appearance: lethargic, confused Abdomen: soft Edwin Corrigan MD Feb 02, 2018 10:27
--- NOTE | 2018-02-02 11:24 | GI Progress Note ---
Assessment/Plan Problems: (1) Constipation ICD Codes: K59.00 - Constipation, unspecified SNOMED: 34732440 (2) Gastroparesis ICD Codes: K31.84 - Gastroparesis SNOMED: 170201190 (3) Abnormal LFTs ICD Codes: R94.5 - Abnormal results of liver function studies SNOMED: 302319343 Status: unchanged Status Narrative Discussed with Dr. Salgado. Assessment/Plan hepatitis panel reviewed >> active Hep A infection anemia work up reviewed >> folate and iron deficiency NGT present recent KUB >> no acute findings pt has ET tube on mech vent start NGTFs per RD to goal, PEG if necessary low dose erythromycin if needed for GI motility OB stool r/o GI bleed monitor H&H, prn transfusions bowel regime >> lactulose TID + miralax ppi folate fu labs The patient was seen and examined at bedside and all new and available data was reviewed in the patients chart. I agree with the above findings, impression and plan. (Patient seen earlier today. Signature stamp does not reflect patient encounter time.). - Peter Salgado MD Subjective Subjective limited Objective Last 24 Hour Vital Signs Date Time Temp Pulse Resp B/P (MAP) Pulse Ox O2 Delivery O2 Flow Rate FiO2 02/02/18 09:19 72 30 80 02/02/18 08:42 79 152/62 02/02/18 07:28 79 30 98 Mechanical Ventilator 80 02/02/18 07:19 80 30 97 Mechanical Ventilator 70 02/02/18 07:19 80 02/02/18 07:19 75 30 80 02/02/18 06:30 76 28 152/62 (92) 92 02/02/18 06:00 80 02/02/18 06:00 Mechanical Ventilator 80 02/02/18 06:00 77 27 152/62 (92) 91 02/02/18 05:30 76 26 152/62 (92) 94 02/02/18 05:10 75 32 80 02/02/18 05:00 30 Mechanical Ventilator 70 02/02/18 05:00 69 26 137/67 (90) 94 02/02/18 04:30 69 26 99/49 (66) 94 02/02/18 04:00 Mechanical Ventilator 02/02/18 04:00 98.0 67 27 99/49 (66) 94 02/02/18 04:00 94 02/02/18 04:00 Mechanical Ventilator 70 02/02/18 04:00 70 02/02/18 03:30 66 23 113/57 (75) 95 02/02/18 03:00 64 23 104/60 (75) 95 02/02/18 03:00 30 Mechanical Ventilator 70 02/02/18 02:58 61 30 70 02/02/18 02:30 67 23 104/67 (79) 95 02/02/18 02:00 64 23 95/47 (63) 95 02/02/18 02:00 30 Mechanical Ventilator 70 02/02/18 01:30 65 23 131/67 (88) 95 02/02/18 01:00 62 29 136/60 (85) 95 02/02/18 01:00 30 Mechanical Ventilator 70 02/02/18 00:59 73 31 98 Mechanical Ventilator 70 02/02/18 00:49 67 30 96 Mechanical Ventilator 70 02/02/18 00:49 70 02/02/18 00:49 67 30 70 02/02/18 00:30 64 29 106/49 (68) 95 02/02/18 00:00 63 02/02/18 00:00 98.5 66 29 130/61 (84) 95 02/02/18 00:00 30 Mechanical Ventilator 70 02/02/18 00:00 Mechanical Ventilator 02/01/18 23:30 66 29 133/53 (79) 94 02/01/18 23:00 30 Mechanical Ventilator 70 02/01/18 23:00 64 30 123/57 (79) 95 02/01/18 22:48 90 32 70 02/01/18 22:30 63 27 135/58 (83) 95 02/01/18 22:00 62 26 142/61 (88) 95 02/01/18 22:00 30 Mechanical Ventilator 70 02/01/18 21:30 63 27 139/59 (85) 97 02/01/18 21:20 74 30 70 02/01/18 21:00 71 30 120/59 (79) 97 02/01/18 21:00 30 Mechanical Ventilator 70 02/01/18 20:39 67 118/53 02/01/18 20:30 68 30 107/51 (69) 95 02/01/18 20:00 Mechanical Ventilator 12/12/18 20:00 98.1 70 30 115/56 (75) 94 02/01/18 20:00 60 02/01/18 20:00 70 02/01/18 20:00 30 Mechanical Ventilator 70.0 02/01/18 19:30 71 30 129/55 (79) 93 02/01/18 19:09 86 30 96 Mechanical Ventilator 70 02/01/18 19:00 75 30 119/70 (86) 93 02/01/18 19:00 29 Mechanical Ventilator 70 02/01/18 18:59 70 02/01/18 18:59 72 30 70 02/01/18 18:59 72 30 93 Mechanical Ventilator 70 02/01/18 18:00 73 30 123/55 (77) 93 02/01/18 18:00 29 Mechanical Ventilator 70 02/01/18 17:00 77 30 122/77 (92) 91 02/01/18 16:59 98.0 02/01/18 16:46 74 34 70 02/01/18 16:29 30 Mechanical Ventilator 70 02/01/18 16:00 Mechanical Ventilator 02/01/18 16:00 70 02/01/18 16:00 98.0 72 30 130/67 (88) 96 02/01/18 16:00 80 02/01/18 15:00 80 30 136/70 (92) 92 02/01/18 14:45 83 34 70 02/01/18 14:00 77 30 132/55 (80) 91 02/01/18 13:28 65 33 70 02/01/18 13:00 75 30 130/55 (80) 98 02/01/18 12:00 82 02/01/18 12:00 70 02/01/18 12:00 98.0 72 30 150/67 (94) 96 02/01/18 12:00 Mechanical Ventilator Intake and Output 02/01/18 02/02/18 19:00 07:00 Intake Total 1062.416 ml 1032 ml Output Total 950 ml 750 ml Balance 112.416 ml 282 ml Free Water 90 ml IV Total 462.416 ml 392 ml Tube Feeding 600 ml 550 ml Output Urine Total 950 ml 750 ml Laboratory Tests Test 02/02/18 03:40 White Blood Count 12.2 K/UL (4.8-10.8) H Red Blood Count 2.99 M/UL (4.70-6.10) L Hemoglobin 9.5 G/DL (14.2-18.0) L Hematocrit 28.6 % (42.0-52.0) L Mean Corpuscular Volume 96 FL (80-99) Mean Corpuscular Hemoglobin 31.8 PG (27.0-31.0) H Mean Corpuscular Hemoglobin Concent 33.2 G/DL (32.0-36.0) Red Cell Distribution Width 13.6 % (11.6-14.8) Platelet Count 191 K/UL (150-450) Mean Platelet Volume 9.1 FL (6.5-10.1) Neutrophils (%) (Auto) % (45.0-75.0) Lymphocytes (%) (Auto) % (20.0-45.0) Monocytes (%) (Auto) % (1.0-10.0) Eosinophils (%) (Auto) % (0.0-3.0) Basophils (%) (Auto) % (0.0-2.0) Sodium Level 148 MMOL/L (136-145) H Potassium Level 3.8 MMOL/L (3.5-5.1) Chloride Level 112 MMOL/L (98-107) H Carbon Dioxide Level 34 MMOL/L (21-32) H Anion Gap 2 mmol/L (5-15) L Blood Urea Nitrogen 36 mg/dL (7-18) H Creatinine 0.8 MG/DL (0.55-1.30) Estimat Glomerular Filtration Rate mL/min (>60) Glucose Level 118 MG/DL (74-106) H Calcium Level 8.0 MG/DL (8.5-10.1) L Total Bilirubin 0.7 MG/DL (0.2-1.0) Aspartate Amino Transf (AST/SGOT) 19 U/L (15-37) Alanine Aminotransferase (ALT/SGPT) 12 U/L (12-78) Alkaline Phosphatase 64 U/L (46-116) Total Protein 5.2 G/DL (6.4-8.2) L Albumin 1.3 G/DL (3.4-5.0) L Globulin 3.9 g/dL Albumin/Globulin Ratio 0.3 (1.0-2.7) L Height (Feet): 5 Height (Inches): 9.00 Weight (Pounds): 152 General Appearance: alert Cardiovascular: normal rate Respiratory/Chest: normal breath sounds, other - intubated Abdominal Exam: soft Willa Woods NP Feb 02, 2018 11:24
--- NOTE | 2018-02-02 12:07 | Infectious Diseases Prog Note ---
Assessment/Plan Assessment/Plan A: 1. Sepsis 2. Hypoxemic respiratory failure 3. Acute renal failure. 4. Lactic acidosis. 5. Increase in bilirubin, s/p cholecystectomy 6. Pulmonary fibrosis 7. Pulmonary hypertension 8.Hepatitis A P; Continue Cefepime Subjective ROS Limited/Unobtainable: Yes Constitutional: Reports: no symptoms Neurologic: Reports: other - more alert, on restraint Allergies: Coded Allergies: No Known Allergies (Unverified , 01/24/18) Objective Vital Signs Last 24 Hour Vital Signs Date Time Temp Pulse Resp B/P (MAP) Pulse Ox O2 Delivery O2 Flow Rate FiO2 02/02/18 11:00 76 24 130/65 (86) 95 02/02/18 10:00 75 28 136/62 (86) 96 02/02/18 09:19 72 30 80 02/02/18 09:00 76 25 116/65 (82) 95 02/02/18 08:42 79 152/62 02/02/18 08:00 Mechanical Ventilator 02/02/18 08:00 82 02/02/18 08:00 98.0 67 27 110/49 (69) 94 02/02/18 07:28 79 30 98 Mechanical Ventilator 80 02/02/18 07:19 80 30 97 Mechanical Ventilator 70 02/02/18 07:19 80 02/02/18 07:19 75 30 80 02/02/18 07:00 80 23 140/62 (88) 92 02/02/18 06:30 76 28 152/62 (92) 92 02/02/18 06:00 80 02/02/18 06:00 Mechanical Ventilator 80 02/02/18 06:00 77 27 152/62 (92) 91 02/02/18 05:30 76 26 152/62 (92) 94 02/02/18 05:10 75 32 80 02/02/18 05:00 30 Mechanical Ventilator 70 02/02/18 05:00 69 26 137/67 (90) 94 02/02/18 04:30 69 26 99/49 (66) 94 02/02/18 04:00 Mechanical Ventilator 02/02/18 04:00 98.0 67 27 99/49 (66) 94 02/02/18 04:00 94 02/02/18 04:00 Mechanical Ventilator 70 02/02/18 04:00 70 02/02/18 03:30 66 23 113/57 (75) 95 02/02/18 03:00 64 23 104/60 (75) 95 02/02/18 03:00 30 Mechanical Ventilator 70 02/02/18 02:58 61 30 70 02/02/18 02:30 67 23 104/67 (79) 95 02/02/18 02:00 64 23 95/47 (63) 95 02/02/18 02:00 30 Mechanical Ventilator 70 02/02/18 01:30 65 23 131/67 (88) 95 02/02/18 01:00 62 29 136/60 (85) 95 02/02/18 01:00 30 Mechanical Ventilator 70 02/02/18 00:59 73 31 98 Mechanical Ventilator 70 02/02/18 00:49 67 30 96 Mechanical Ventilator 70 02/02/18 00:49 70 02/02/18 00:49 67 30 70 02/02/18 00:30 64 29 106/49 (68) 95 02/02/18 00:00 63 02/02/18 00:00 98.5 66 29 130/61 (84) 95 02/02/18 00:00 30 Mechanical Ventilator 70 02/02/18 00:00 Mechanical Ventilator 02/01/18 23:30 66 29 133/53 (79) 94 02/01/18 23:00 30 Mechanical Ventilator 70 02/01/18 23:00 64 30 123/57 (79) 95 02/01/18 22:48 90 32 70 02/01/18 22:30 63 27 135/58 (83) 95 02/01/18 22:00 62 26 142/61 (88) 95 02/01/18 22:00 30 Mechanical Ventilator 70 02/01/18 21:30 63 27 139/59 (85) 97 02/01/18 21:20 74 30 70 02/01/18 21:00 71 30 120/59 (79) 97 02/01/18 21:00 30 Mechanical Ventilator 70 02/01/18 20:39 67 118/53 02/01/18 20:30 68 30 107/51 (69) 95 02/01/18 20:00 Mechanical Ventilator 02/01/18 20:00 98.1 70 30 115/56 (75) 94 02/01/18 20:00 60 02/01/18 20:00 70 02/01/18 20:00 30 Mechanical Ventilator 70.0 02/01/18 19:30 71 30 129/55 (79) 93 02/01/18 19:09 86 30 96 Mechanical Ventilator 70 02/01/18 19:00 75 30 119/70 (86) 93 02/01/18 19:00 29 Mechanical Ventilator 70 02/01/18 18:59 70 02/01/18 18:59 72 30 70 02/01/18 18:59 72 30 93 Mechanical Ventilator 70 02/01/18 18:00 73 30 123/55 (77) 93 02/01/18 18:00 29 Mechanical Ventilator 70 02/01/18 17:00 77 30 122/77 (92) 91 02/01/18 16:59 98.0 02/01/18 16:46 74 34 70 02/01/18 16:29 30 Mechanical Ventilator 70 02/01/18 16:00 Mechanical Ventilator 02/01/18 16:00 70 02/01/18 16:00 98.0 72 30 130/67 (88) 96 02/01/18 16:00 80 02/01/18 15:00 80 30 136/70 (92) 92 18 14:45 83 34 70 02/01/18 14:00 77 30 132/55 (80) 91 02/01/18 13:28 65 33 70 02/01/18 13:00 75 30 130/55 (80) 98 Height (Feet): 5 Height (Inches): 9.00 Weight (Pounds): 154 HEENT: other - orally intubated Respiratory/Chest: decreased breath sounds, other - on ventilator Cardiovascular: normal rate Abdomen: soft, non tender Extremities: other - edema of arms Neurologic/Psychiatric: alert Laboratory Tests Test 02/02/18 03:40 White Blood Count 12.2 K/UL (4.8-10.8) H Red Blood Count 2.99 M/UL (4.70-6.10) L Hemoglobin 9.5 G/DL (14.2-18.0) L Hematocrit 28.6 % (42.0-52.0) L Mean Corpuscular Volume 96 FL (80-99) Mean Corpuscular Hemoglobin 31.8 PG (27.0-31.0) H Mean Corpuscular Hemoglobin Concent 33.2 G/DL (32.0-36.0) Red Cell Distribution Width 13.6 % (11.6-14.8) Platelet Count 191 K/UL (150-450) Mean Platelet Volume 9.1 FL (6.5-10.1) Neutrophils (%) (Auto) % (45.0-75.0) Lymphocytes (%) (Auto) % (20.0-45.0) Monocytes (%) (Auto) % (1.0-10.0) Eosinophils (%) (Auto) % (0.0-3.0) Basophils (%) (Auto) % (0.0-2.0) Sodium Level 148 MMOL/L (136-145) H Potassium Level 3.8 MMOL/L (3.5-5.1) Chloride Level 112 MMOL/L (98-107) H Carbon Dioxide Level 34 MMOL/L (21-32) H Anion Gap 2 mmol/L (5-15) L Blood Urea Nitrogen 36 mg/dL (7-18) H Creatinine 0.8 MG/DL (0.55-1.30) Estimat Glomerular Filtration Rate mL/min (>60) Glucose Level 118 MG/DL (74-106) H Calcium Level 8.0 MG/DL (8.5-10.1) L Total Bilirubin 0.7 MG/DL (0.2-1.0) Aspartate Amino Transf (AST/SGOT) 19 U/L (15-37) Alanine Aminotransferase (ALT/SGPT) 12 U/L (12-78) Alkaline Phosphatase 64 U/L (46-116) Total Protein 5.2 G/DL (6.4-8.2) L Albumin 1.3 G/DL (3.4-5.0) L Globulin 3.9 g/dL Albumin/Globulin Ratio 0.3 (1.0-2.7) L Current Medications Medications (Trade) Dose Ordered Sig/Chaka Route PRN Reason Start Time Stop Time Status Last Admin Dose Admin Acetaminophen (Tylenol) 650 mg PRN PRN RECTAL Prn Headache/Temp > 101 01/26/18 22:15 02/23/18 22:14 01/28/18 20:35 Albuterol/ Ipratropium (Albuterol/ Ipratropium) 3 ml Q4H PRN HHN Shortness of Breath 02/01/18 13:30 02/06/18 13:29 Albuterol/ Ipratropium (Albuterol/ Ipratropium) 3 ml Q6HRT HHN 02/01/18 19:00 02/06/18 18:59 02/02/18 07:19 Cefepime HCl 1 gm/ Dextrose 55 ml @ 110 mls/hr Q12HR@1000,2200 IVPB 01/30/18 10:00 02/06/18 09:59 02/02/18 08:44 Dextrose/Sodium Chloride 1,000 ml @ 25 mls/hr Q24H IV 02/02/18 14:00 02/28/18 13:59 02/02/18 02:17 Diphenhydramine HCl (Benadryl) 25 mg Q6H PRN IVP Itching 01/26/18 22:15 02/25/18 22:14 Famotidine (Pepcid I.v.) 20 mg Q12HR IVP 01/26/18 10:00 02/24/18 09:59 02/02/18 08:42 Haloperidol Lactate (Haldol) 5 mg Q6H PRN IM Agitation 01/27/18 13:00 02/26/18 12:59 Heparin Sodium (Porcine) (Heparin 5000 units/ml) 5,000 units EVERY 12 HOURS SUBQ 01/27/18 21:00 02/26/18 20:59 02/02/18 08:43 Lactulose (Cephulac) 20 gm THREE TIMES A DAY NG 02/02/18 13:00 03/04/18 12:59 Magnesium Hydroxide (Mom) 30 ml DAILYPRN PRN ORAL Constipation 01/30/18 14:15 03/01/18 14:14 02/02/18 07:00 Metoprolol Tartrate (Lopressor) 50 mg Q12HR ORAL 01/31/18 21:00 02/25/18 20:59 02/02/18 08:42 Midazolam HCl (Versed 2mg/2ml vial) 2 mg EVERY 4 HOURS PRN IVP For Anxiety 01/26/18 10:00 02/25/18 09:59 02/02/18 02:16 Olanzapine (ZyPREXA) 2.5 mg BEDTIME PRN ORAL agitation 01/26/18 21:00 02/25/18 20:59 Ondansetron HCl (Zofran) 4 mg Q6H PRN IVP Nausea & Vomiting 01/26/18 22:15 02/25/18 22:14 Polyethylene Glycol (Miralax) 17 gm BEDTIME NG 01/31/18 21:00 03/02/18 20:59 02/01/18 20:39 Ha Tello MD Feb 02, 2018 12:07
[2018-02-02] MEDS: Lactulose 20gm/30ml UDC NG SCH ×2 (13:00→18:00)
--- NOTE | 2018-02-02 13:24 | Nephrology Progress Note ---
Assessment/Plan Problem List: (1) OLEG (acute kidney injury) (2) Abnormal LFTs (3) Lactic acid acidosis (4) UTI (urinary tract infection) (5) Respiratory disorder with ventilator dependence (6) Pulmonary fibrosis Assessment Acute renal failure, high K Pneumonia / Sepsis / Hypoxia / UTI HypoAlbuminemia / Proteinuria Acute respiratory failure Pulmonary fibrosis Lactic acidosis Plan Kayexelate GT given 01/30 Adjust jackson- Discussed with RN Hydrate- Pulm support / on vent IV antibiotics Watch electrolytes Gastric support Per orders Subjective ROS Limited/Unobtainable: Yes Objective Objective Last 24 Hour Vital Signs Date Time Temp Pulse Resp B/P (MAP) Pulse Ox O2 Delivery O2 Flow Rate FiO2 02/02/18 11:35 70 26 80 02/02/18 11:00 76 24 130/65 (86) 95 02/02/18 10:00 75 28 136/62 (86) 96 02/02/18 09:19 72 30 80 02/02/18 09:00 76 25 116/65 (82) 95 02/02/18 08:42 79 152/62 02/02/18 08:00 Mechanical Ventilator 02/02/18 08:00 82 02/02/18 08:00 98.0 67 27 110/49 (69) 94 02/02/18 07:28 79 30 98 Mechanical Ventilator 80 02/02/18 07:19 80 30 97 Mechanical Ventilator 70 02/02/18 07:19 80 02/02/18 07:19 75 30 80 02/02/18 07:00 80 23 140/62 (88) 92 02/02/18 06:30 76 28 152/62 (92) 92 02/02/18 06:00 80 02/02/18 06:00 Mechanical Ventilator 80 02/02/18 06:00 77 27 152/62 (92) 91 02/02/18 05:30 76 26 152/62 (92) 94 02/02/18 05:10 75 32 80 02/02/18 05:00 30 Mechanical Ventilator 70 02/02/18 05:00 69 26 137/67 (90) 94 02/02/18 04:30 69 26 99/49 (66) 94 02/02/18 04:00 Mechanical Ventilator 02/02/18 04:00 98.0 67 27 99/49 (66) 94 02/02/18 04:00 94 02/02/18 04:00 Mechanical Ventilator 70 02/02/18 04:00 70 02/02/18 03:30 66 23 113/57 (75) 95 02/02/18 03:00 64 23 104/60 (75) 95 02/02/18 03:00 30 Mechanical Ventilator 70 02/02/18 02:58 61 30 70 02/02/18 02:30 67 23 104/67 (79) 95 02/02/18 02:00 64 23 95/47 (63) 95 02/02/18 02:00 30 Mechanical Ventilator 70 02/02/18 01:30 65 23 131/67 (88) 95 02/02/18 01:00 62 29 136/60 (85) 95 02/02/18 01:00 30 Mechanical Ventilator 70 02/02/18 00:59 73 31 98 Mechanical Ventilator 70 02/02/18 00:49 67 30 96 Mechanical Ventilator 70 02/02/18 00:49 70 02/02/18 00:49 67 30 70 02/02/18 00:30 64 29 106/49 (68) 95 02/02/18 00:00 63 02/02/18 00:00 98.5 66 29 130/61 (84) 95 02/02/18 00:00 30 Mechanical Ventilator 70 02/02/18 00:00 Mechanical Ventilator 02/01/18 23:30 66 29 133/53 (79) 94 02/01/18 23:00 30 Mechanical Ventilator 70 02/01/18 23:00 64 30 123/57 (79) 95 02/01/18 22:48 90 32 70 02/01/18 22:30 63 27 135/58 (83) 95 02/01/18 22:00 62 26 142/61 (88) 95 02/01/18 22:00 30 Mechanical Ventilator 70 02/01/18 21:30 63 27 139/59 (85) 97 02/01/18 21:20 74 30 70 02/01/18 21:00 71 30 120/59 (79) 97 02/01/18 21:00 30 Mechanical Ventilator 70 02/01/18 20:39 67 118/53 02/01/18 20:30 68 30 107/51 (69) 95 02/01/18 20:00 Mechanical Ventilator 02/01/18 20:00 98.1 70 30 115/56 (75) 94 02/01/18 20:00 60 02/01/18 20:00 70 02/01/18 20:00 30 Mechanical Ventilator 70.0 02/01/18 19:30 71 30 129/55 (79) 93 02/01/18 19:09 86 30 96 Mechanical Ventilator 70 02/01/18 19:00 75 30 119/70 (86) 93 02/01/18 19:00 29 Mechanical Ventilator 70 02/01/18 18:59 70 02/01/18 18:59 72 30 70 02/01/18 18:59 72 30 93 Mechanical Ventilator 70 02/01/18 18:00 73 30 123/55 (77) 93 02/01/18 18:00 29 Mechanical Ventilator 70 02/01/18 17:00 77 30 122/77 (92) 91 02/01/18 16:59 98.0 02/01/18 16:46 74 34 70 02/01/18 16:29 30 Mechanical Ventilator 70 02/01/18 16:00 Mechanical Ventilator 02/01/18 16:00 70 02/01/18 16:00 98.0 72 30 130/67 (88) 96 02/01/18 16:00 80 02/01/18 15:00 80 30 136/70 (92) 92 02/01/18 14:45 83 34 70 02/01/18 14:00 77 30 132/55 (80) 91 02/01/18 13:28 65 33 70 Intake and Output 02/01/18 02/02/18 19:00 07:00 Intake Total 1062.416 ml 1082 ml Output Total 950 ml 800 ml Balance 112.416 ml 282 ml Free Water 90 ml IV Total 462.416 ml 392 ml Tube Feeding 600 ml 600 ml Output Urine Total 950 ml 800 ml Laboratory Tests 02/02/18 03:40: White Blood Count 12.2H, Red Blood Count 2.99L, Hemoglobin 9.5L, Hematocrit 28.6L, Mean Corpuscular Volume 96, Mean Corpuscular Hemoglobin 31.8H, Mean Corpuscular Hemoglobin Concent 33.2, Red Cell Distribution Width 13.6, Platelet Count 191, Mean Platelet Volume 9.1, Neutrophils (%) (Auto) , Lymphocytes (%) ( Auto) , Monocytes (%) (Auto) , Eosinophils (%) (Auto) , Basophils (%) (Auto) , Sodium Level 148H, Potassium Level 3.8, Chloride Level 112H, Carbon Dioxide Level 34H, Anion Gap 2L, Blood Urea Nitrogen 36H, Creatinine 0.8, Estimat Glomerular Filtration Rate , Glucose Level 118H, Calcium Level 8.0L, Total Bilirubin 0.7, Aspartate Amino Transf (AST/SGOT) 19, Alanine Aminotransferase ( ALT/SGPT) 12, Alkaline Phosphatase 64, Total Protein 5.2L, Albumin 1.3L, Globulin 3.9, Albumin/Globulin Ratio 0.3L Height (Feet): 5 Height (Inches): 9.00 Weight (Pounds): 154 General Appearance: no apparent distress Neck: other - vented Objective no change Juan C Mclaughlin MD Feb 02, 2018 13:24
--- NOTE | 2018-02-02 15:55 | Cardiac Electrophysiology PN ---
Assessment/Plan Assessment/Plan 1. Troponin Leak. The levels are flat. Due to the respiratory failure and azotemia. Echo normal LVEF 2. Respiratory failure, due to PNA and CHF. The patient is on the ventilator. Antibiotic per ID Failed weaning per Dr. Johnson.Needs higher Fio2 today 100% Likely needs Tracheostomy 3. Hypokalemia, potassium was replaced. 4. Azotemia and hypernatremia. Sodium is 148. FU Dr Mclaughlin 5. Elevated bilirubin of 2.3. Down to 1.1 DW RN Subjective Subjective In ICU on the Vent.Fentanyl drip resumed. In SR. Fio2 increased to 100% Objective Last 24 Hour Vital Signs Date Time Temp Pulse Resp B/P (MAP) Pulse Ox O2 Delivery O2 Flow Rate FiO2 02/02/18 15:25 65 30 80 02/02/18 15:00 Mechanical Ventilator 02/02/18 14:00 73 25 127/65 (85) 95 02/02/18 14:00 Endotracheal Tube 02/02/18 13:00 76 24 120/60 (80) 95 02/02/18 13:00 Mechanical Ventilator 02/02/18 12:00 80 02/02/18 12:00 Mechanical Ventilator 02/02/18 12:00 80 02/02/18 12:00 Mechanical Ventilator 02/02/18 12:00 98.0 70 27 116/49 (71) 94 02/02/18 11:35 70 26 80 02/02/18 11:00 Mechanical Ventilator 02/02/18 11:00 76 24 130/65 (86) 95 02/02/18 10:00 Mechanical Ventilator 02/02/18 10:00 75 28 136/62 (86) 96 02/02/18 09:19 72 30 80 02/02/18 09:00 76 25 116/65 (82) 95 02/02/18 08:44 Mechanical Ventilator 02/02/18 08:42 79 152/62 02/02/18 08:00 Mechanical Ventilator 02/02/18 08:00 82 02/02/18 08:00 Mechanical Ventilator 02/02/18 08:00 98.0 67 27 110/49 (69) 94 02/02/18 07:28 79 30 98 Mechanical Ventilator 80 02/02/18 07:19 80 30 97 Mechanical Ventilator 70 02/02/18 07:19 80 02/02/18 07:19 75 30 80 02/02/18 07:00 80 23 140/62 (88) 92 02/02/18 06:30 76 28 152/62 (92) 92 02/02/18 06:00 80 02/02/18 06:00 Mechanical Ventilator 80 02/02/18 06:00 77 27 152/62 (92) 91 02/02/18 05:30 76 26 152/62 (92) 94 02/02/18 05:10 75 32 80 02/02/18 05:00 30 Mechanical Ventilator 70 02/02/18 05:00 69 26 137/67 (90) 94 02/02/18 04:30 69 26 99/49 (66) 94 02/02/18 04:00 Mechanical Ventilator 02/02/18 04:00 98.0 67 27 99/49 (66) 94 02/02/18 04:00 94 02/02/18 04:00 Mechanical Ventilator 70 02/02/18 04:00 70 02/02/18 03:30 66 23 113/57 (75) 95 02/02/18 03:00 64 23 104/60 (75) 95 02/02/18 03:00 30 Mechanical Ventilator 70 02/02/18 02:58 61 30 70 02/02/18 02:30 67 23 104/67 (79) 95 02/02/18 02:00 64 23 95/47 (63) 95 02/02/18 02:00 30 Mechanical Ventilator 70 02/02/18 01:30 65 23 131/67 (88) 95 02/02/18 01:00 62 29 136/60 (85) 95 02/02/18 01:00 30 Mechanical Ventilator 70 02/02/18 00:59 73 31 98 Mechanical Ventilator 70 02/02/18 00:49 67 30 96 Mechanical Ventilator 70 02/02/18 00:49 70 02/02/18 00:49 67 30 70 02/02/18 00:30 64 29 106/49 (68) 95 02/02/18 00:00 63 02/02/18 00:00 98.5 66 29 130/61 (84) 95 02/02/18 00:00 30 Mechanical Ventilator 70 02/02/18 00:00 Mechanical Ventilator 02/01/18 23:30 66 29 133/53 (79) 94 12/12/18 23:00 30 Mechanical Ventilator 70 02/01/18 23:00 64 30 123/57 (79) 95 02/01/18 22:48 90 32 70 02/01/18 22:30 63 27 135/58 (83) 95 02/01/18 22:00 62 26 142/61 (88) 95 02/01/18 22:00 30 Mechanical Ventilator 70 02/01/18 21:30 63 27 139/59 (85) 97 02/01/18 21:20 74 30 70 02/01/18 21:00 71 30 120/59 (79) 97 02/01/18 21:00 30 Mechanical Ventilator 70 02/01/18 20:39 67 118/53 02/01/18 20:30 68 30 107/51 (69) 95 02/01/18 20:00 Mechanical Ventilator 02/01/18 20:00 98.1 70 30 115/56 (75) 94 02/01/18 20:00 60 02/01/18 20:00 70 02/01/18 20:00 30 Mechanical Ventilator 70.0 02/01/18 19:30 71 30 129/55 (79) 93 02/01/18 19:09 86 30 96 Mechanical Ventilator 70 02/01/18 19:00 75 30 119/70 (86) 93 02/01/18 19:00 29 Mechanical Ventilator 70 02/01/18 18:59 70 02/01/18 18:59 72 30 70 02/01/18 18:59 72 30 93 Mechanical Ventilator 70 02/01/18 18:00 73 30 123/55 (77) 93 02/01/18 18:00 29 Mechanical Ventilator 70 02/01/18 17:00 77 30 122/77 (92) 91 02/01/18 16:59 98.0 02/01/18 16:46 74 34 70 02/01/18 16:29 30 Mechanical Ventilator 70 02/01/18 16:00 Mechanical Ventilator 02/01/18 16:00 70 02/01/18 16:00 98.0 72 30 130/67 (88) 96 02/01/18 16:00 80 Intake and Output 02/01/18 02/02/18 19:00 07:00 Intake Total 1062.416 ml 1082 ml Output Total 950 ml 800 ml Balance 112.416 ml 282 ml Free Water 90 ml IV Total 462.416 ml 392 ml Tube Feeding 600 ml 600 ml Output Urine Total 950 ml 800 ml Laboratory Tests Test 02/02/18 03:40 White Blood Count 12.2 K/UL (4.8-10.8) H Red Blood Count 2.99 M/UL (4.70-6.10) L Hemoglobin 9.5 G/DL (14.2-18.0) L Hematocrit 28.6 % (42.0-52.0) L Mean Corpuscular Volume 96 FL (80-99) Mean Corpuscular Hemoglobin 31.8 PG (27.0-31.0) H Mean Corpuscular Hemoglobin Concent 33.2 G/DL (32.0-36.0) Red Cell Distribution Width 13.6 % (11.6-14.8) Platelet Count 191 K/UL (150-450) Mean Platelet Volume 9.1 FL (6.5-10.1) Neutrophils (%) (Auto) % (45.0-75.0) Lymphocytes (%) (Auto) % (20.0-45.0) Monocytes (%) (Auto) % (1.0-10.0) Eosinophils (%) (Auto) % (0.0-3.0) Basophils (%) (Auto) % (0.0-2.0) Sodium Level 148 MMOL/L (136-145) H Potassium Level 3.8 MMOL/L (3.5-5.1) Chloride Level 112 MMOL/L (98-107) H Carbon Dioxide Level 34 MMOL/L (21-32) H Anion Gap 2 mmol/L (5-15) L Blood Urea Nitrogen 36 mg/dL (7-18) H Creatinine 0.8 MG/DL (0.55-1.30) Estimat Glomerular Filtration Rate mL/min (>60) Glucose Level 118 MG/DL (74-106) H Calcium Level 8.0 MG/DL (8.5-10.1) L Total Bilirubin 0.7 MG/DL (0.2-1.0) Aspartate Amino Transf (AST/SGOT) 19 U/L (15-37) Alanine Aminotransferase (ALT/SGPT) 12 U/L (12-78) Alkaline Phosphatase 64 U/L (46-116) Total Protein 5.2 G/DL (6.4-8.2) L Albumin 1.3 G/DL (3.4-5.0) L Globulin 3.9 g/dL Albumin/Globulin Ratio 0.3 (1.0-2.7) L Objective HEAD AND NECK: Orally intubated. LUNGS: Coarse rhonchi CARDIOVASCULAR: Regular S1 and S2 with no murmur. ABDOMEN: Soft. EXTREMITIES: No pitting edema, Josep Brar MD Feb 02, 2018 15:55
[2018-02-02] MEDS: Miralax 17gm pkt NG SCH (21:00)
--- NOTE | 2018-02-02 22:16 | Pulmonolgy Critical Care Note ---
Critical Care - Asmt/Plan Assessment/Plan: Pulmonary CCM Progress Note Critical Care - Asmt/Plan Problems: (1) Pulmonary fibrosis (2) Multifocal pneumonia (3) Respiratory disorder with ventilator dependence (4) Lactic acid acidosis (5) Abnormal LFTs (6) OLEG (acute kidney injury) (7) SIRS (systemic inflammatory response syndrome) (8) UTI (urinary tract infection) Assessment/Plan: ASSESSMENT: The patient is a 77-year-old male, current daily smoker with history of hypertension, back pain, lack of health maintenance, presenting with respiratory illness, bilateral pneumonia, lactic acidosis, abnormal kidney function and renal function likely OLEG, and shock liver. 01/26: Prog hypoxemia, inc WOB, tx'd to ICU, intubated 01/27: Gas exchange better, trops downtrending, LA resolved 01/30: Oxygenation stable, stable on vent PROBLEM LIST: 1. Bilateral parenchymal infiltrates, multilobar pneumonia on top of underlying fibrotic lung disease 2. VDRF 3. Metabolic & respiratory acidosis 4. Likely underlying pulmonary fibrosis and COPD 5. NSTEMI, likely demand ischemia 6. Lactic acidosis - RESOLVED 7. Abnormal creatinine, likely acute kidney injury - IMPROVED 8. Abnormal liver function tests - IMPROVED 9. SIRS 10. History of hypertension. 11. PNEUMONIA 12. Constipation TREATMENT PLAN: Continue ventilatory support/settings reviewed, monitor gas exchange PEEP 7, dec FiO2 to keep SaO2 > 90 and <94 AM ABG RTC and PRN DUOnebs Cefepime (D8), Vanco (D7) per ID, F/U Cx's Cautious TF's, monitor residuals ICU sedation: Fentanyl gtt for RASS - 2, Versed 2 mg IV q4 PRN F/U cardiology recs Monitor volumes and renal function, decreased IVF to 25, lasix 20 IV x 1 now Wound care GI recs, bowel regimen Discuss GOC, FC Px: Hep SQ, H2B D/W family, RN, RT and team CCT 45 Critical Care - Objective Vital Signs Noted Status: awake Condition: critical Lungs: rhonchi Heart: HR/BP stable Abdomen: soft, non-tender, active bowel sounds Extremities: no C/C/E Decubiti: location - sacral Blood Sugars: BS controlled Critical Care - Subjective ROS Limited/Unobtainable: Yes ICU Day: 7 Intubation Day: 7 Interval Events: FiO2 inc 70, PEEP 5 Secretions thin clear Edematous UE . LE Condition: critical IV Access: peripheral - x2 FI02: 70 Vent Support Breath Rate: 30 Vent Support Mode: AC Vent Tidal Volume: 600 Sputum Amount: Moderate PEEP: 5.0 PIP: 34 Fluids: D51/2NS @ 50 Drips: Fent off Tube Feeding Amount: 50 Subjective: IRENE ET-Tube: 7.5 ET Position: 23 Labs: Laboratory Tests Test 02/01/18 04:00 White Blood Count 13.1 K/UL (4.8-10.8) H Red Blood Count 3.41 M/UL (4.70-6.10) L Hemoglobin 10.8 G/DL (14.2-18.0) L Hematocrit 32.6 % (42.0-52.0) L Mean Corpuscular Volume 96 FL (80-99) Mean Corpuscular Hemoglobin 31.6 PG (27.0-31.0) H Mean Corpuscular Hemoglobin Concent 33.1 G/DL (32.0-36.0) Red Cell Distribution Width 13.4 % (11.6-14.8) Platelet Count 207 K/UL (150-450) Mean Platelet Volume 8.8 FL (6.5-10.1) Neutrophils (%) (Auto) % (45.0-75.0) Lymphocytes (%) (Auto) % (20.0-45.0) Monocytes (%) (Auto) % (1.0-10.0) Eosinophils (%) (Auto) % (0.0-3.0) Basophils (%) (Auto) % (0.0-2.0) Sodium Level 148 MMOL/L (136-145) H Potassium Level 3.8 MMOL/L (3.5-5.1) Chloride Level 112 MMOL/L (98-107) H Carbon Dioxide Level 31 MMOL/L (21-32) Anion Gap 5 mmol/L (5-15) Blood Urea Nitrogen 36 mg/dL (7-18) H Creatinine 0.8 MG/DL (0.55-1.30) Estimat Glomerular Filtration Rate mL/min (>60) Glucose Level 125 MG/DL (74-106) H Calcium Level 8.1 MG/DL (8.5-10.1) L Phosphorus Level 3.2 MG/DL (2.5-4.9) Magnesium Level 1.8 MG/DL (1.8-2.4) Total Bilirubin 0.7 MG/DL (0.2-1.0) Aspartate Amino Transf (AST/SGOT) 20 U/L (15-37) Alanine Aminotransferase (ALT/SGPT) 16 U/L (12-78) Alkaline Phosphatase 78 U/L (46-116) Total Protein 5.8 G/DL (6.4-8.2) L Albumin 1.4 G/DL (3.4-5.0) L Globulin 4.4 g/dL Albumin/Globulin Ratio 0.3 (1.0-2.7) L Critical Care - Objective Last 24 Hour Vital Signs Date Time Temp Pulse Resp B/P (MAP) Pulse Ox O2 Delivery O2 Flow Rate FiO2 02/02/18 21:02 70 30 100 02/02/18 20:28 99.7 02/02/18 20:25 75 131/59 02/02/18 20:00 75 02/02/18 20:00 Mechanical Ventilator 02/02/18 20:00 100 02/02/18 20:00 99.7 75 30 131/59 (83) 97 02/02/18 19:56 30 100.0 100 02/02/18 19:15 64 32 95 Mechanical Ventilator 80 02/02/18 19:05 68 31 96 Mechanical Ventilator 100 02/02/18 19:05 100 02/02/18 19:04 68 31 100 02/02/18 19:00 73 25 127/65 (85) 95 02/02/18 18:00 77 25 132/72 (92) 95 02/02/18 17:15 67 30 100 02/02/18 17:00 73 25 130/65 (86) 95 02/02/18 16:00 Mechanical Ventilator 02/02/18 16:00 85 02/02/18 16:00 100 02/02/18 16:00 98.2 75 24 118/55 (76) 94 02/02/18 15:27 85 30 96 Mechanical Ventilator 80 02/02/18 15:25 65 30 100 02/02/18 15:17 65 30 92 Mechanical Ventilator 80 02/02/18 15:17 80 02/02/18 15:00 73 25 120/65 (83) 95 02/02/18 15:00 Mechanical Ventilator 02/02/18 14:00 73 25 127/65 (85) 95 02/02/18 14:00 Endotracheal Tube 02/02/18 13:00 76 24 120/60 (80) 95 02/02/18 13:00 Mechanical Ventilator 02/02/18 12:00 80 02/02/18 12:00 Mechanical Ventilator 02/02/18 12:00 80 02/02/18 12:00 Mechanical Ventilator 02/02/18 12:00 98.0 70 27 116/49 (71) 94 02/02/18 11:35 70 26 80 02/02/18 11:00 Mechanical Ventilator 02/02/18 11:00 76 24 130/65 (86) 95 02/02/18 10:00 Mechanical Ventilator 02/02/18 10:00 75 28 136/62 (86) 96 02/02/18 09:19 72 30 80 02/02/18 09:00 76 25 116/65 (82) 95 02/02/18 08:44 Mechanical Ventilator 02/02/18 08:42 79 152/62 02/02/18 08:00 Mechanical Ventilator 02/02/18 08:00 82 02/02/18 08:00 Mechanical Ventilator 02/02/18 08:00 98.0 67 27 110/49 (69) 94 02/02/18 07:28 79 30 98 Mechanical Ventilator 80 02/02/18 07:19 80 30 97 Mechanical Ventilator 70 02/02/18 07:19 80 02/02/18 07:19 75 30 80 02/02/18 07:00 80 23 140/62 (88) 92 02/02/18 06:30 76 28 152/62 (92) 92 02/02/18 06:00 80 02/02/18 06:00 Mechanical Ventilator 80 02/02/18 06:00 77 27 152/62 (92) 91 02/02/18 05:30 76 26 152/62 (92) 94 02/02/18 05:10 75 32 80 02/02/18 05:00 30 Mechanical Ventilator 70 02/02/18 05:00 69 26 137/67 (90) 94 02/02/18 04:30 69 26 99/49 (66) 94 02/02/18 04:00 Mechanical Ventilator 02/02/18 04:00 98.0 67 27 99/49 (66) 94 02/02/18 04:00 94 02/02/18 04:00 Mechanical Ventilator 70 02/02/18 04:00 70 02/02/18 03:30 66 23 113/57 (75) 95 02/02/18 03:00 64 23 104/60 (75) 95 02/02/18 03:00 30 Mechanical Ventilator 70 02/02/18 02:58 61 30 70 02/02/18 02:30 67 23 104/67 (79) 95 02/02/18 02:00 64 23 95/47 (63) 95 02/02/18 02:00 30 Mechanical Ventilator 70 02/02/18 01:30 65 23 131/67 (88) 95 02/02/18 01:00 62 29 136/60 (85) 95 02/02/18 01:00 30 Mechanical Ventilator 70 02/02/18 00:59 73 31 98 Mechanical Ventilator 70 02/02/18 00:49 67 30 96 Mechanical Ventilator 70 02/02/18 00:49 70 02/02/18 00:49 67 30 70 02/02/18 00:30 64 29 106/49 (68) 95 02/02/18 00:00 63 02/02/18 00:00 98.5 66 29 130/61 (84) 95 02/02/18 00:00 30 Mechanical Ventilator 70 02/02/18 00:00 Mechanical Ventilator 02/01/18 23:30 66 29 133/53 (79) 94 02/01/18 23:00 30 Mechanical Ventilator 70 02/01/18 23:00 64 30 123/57 (79) 95 02/01/18 22:48 90 32 70 02/01/18 22:30 63 27 135/58 (83) 95 Critical Care - Subjective ROS Limited/Unobtainable: No Condition: critical FI02: 100 Vent Support Breath Rate: 30 Vent Support Mode: AC Vent Tidal Volume: 600 Sputum Amount: Moderate PEEP: 7.0 PIP: 42 Tube Feeding Amount: 50 I&O: Intake and Output 02/01/18 02/02/18 19:00 07:00 Intake Total 1062.416 ml 1082 ml Output Total 950 ml 800 ml Balance 112.416 ml 282 ml Free Water 90 ml IV Total 462.416 ml 392 ml Tube Feeding 600 ml 600 ml Output Urine Total 950 ml 800 ml ET-Tube: 7.5 ET Position: 23 Tyrel Gonzalez MD Feb 02, 2018 22:16
[2018-02-03] VITALS (36 sets, daily range): BP systolic 94–157; BP diastolic 37–90
[2018-02-03] MEDS: Albuterol/Ipratropium 3ml neb HHN SCH ×4 (01:12→19:14)
[2018-02-03] MEDS: D5 1/2NS 1,000 ML IV SCH (04:00)
[2018-02-03 05:19] LABS: BASOPHILS % (AUTO) 0.3 % (0.0-2.0); EOSINOPHILS % (AUTO) 0.6 % (0.0-3.0); HEMATOCRIT 31.5 % (42.0-52.0); HEMOGLOBIN 10.6 G/DL (14.2-18.0); LYMPHOCYTES % (AUTO) 9.2 % (20.0-45.0); MEAN CORPUSCULAR VOLUME 96 FL (80-99); MONOCYTES % (AUTO) 5.7 % (1.0-10.0); NEUTROPHILS % (AUTO) 84.2 % (45.0-75.0); PLATELET COUNT 209 K/UL (150-450); RED CELL DISTRIBUTION WIDTH 13.7 % (11.6-14.8); WHITE BLOOD COUNT 14.7 K/UL (4.8-10.8)
[2018-02-03 05:48] LABS: ALANINE AMINOTRANSFERASE 13 U/L (12-78); ALBUMIN 1.5 G/DL (3.4-5.0); ALBUMIN/GLOBULIN RATIO 0.4 (1.0-2.7); ALKALINE PHOSPHATASE 71 U/L (46-116); ANION GAP 3 mmol/L (5-15); ASPARTATE AMINO TRANSFERASE 13 U/L (15-37); BILIRUBIN,TOTAL 0.9 MG/DL (0.2-1.0); BLOOD UREA NITROGEN 31 mg/dL (7-18); CARBON DIOXIDE 34 MMOL/L (21-32); CHLORIDE 112 MMOL/L (98-107); CREATININE 0.8 MG/DL (0.55-1.30); POTASSIUM 3.9 MMOL/L (3.5-5.1); SODIUM 149 MMOL/L (136-145)
[2018-02-03] MEDS: Lactulose 20gm/30ml UDC NG SCH (09:00)
[2018-02-03] MEDS: Cefepime HCl 1 GM in D5W 55 ML IVPB SCH ×2 (10:16→22:00)
[2018-02-03] MEDS: Metoprolol Tartrate 50mg tab ORAL SCH ×2 (10:16→21:46)
[2018-02-03] MEDS: Heparin 5000 units/ml inj SUBQ SCH ×2 (10:17→21:47)
--- NOTE | 2018-02-03 12:32 | Cardiac Electrophysiology PN ---
Assessment/Plan Assessment/Plan 1. Troponin Leak. The levels are flat. Due to the respiratory failure and azotemia. Echo normal EF 2. Respiratory failure, due to PNA and CHF. The patient is on the ventilator. Antibiotic per ID Failed weaning. Likely needs Tracheostomy 3. Hypokalemia, potassium was replaced. 4. Azotemia and hypernatremia. Sodium is 148. FU Dr Mclaughlin 5. Elevated bilirubin of 2.3. Down to 1.1 DW RN Subjective Subjective In ICU on the Vent and Fentanyl drip. In SR with 100% Fio2 Objective Last 24 Hour Vital Signs Date Time Temp Pulse Resp B/P (MAP) Pulse Ox O2 Delivery O2 Flow Rate FiO2 02/03/18 12:00 100 02/03/18 12:00 98.9 66 30 108/58 (75) 98 02/03/18 11:30 61 30 103/50 (67) 98 02/03/18 11:00 61 30 110/54 (72) 98 02/03/18 11:00 30 Mechanical Ventilator 100 02/03/18 10:46 61 31 100 02/03/18 10:30 71 27 132/90 (104) 97 02/03/18 10:16 86 132/79 02/03/18 10:00 72 28 132/79 (96) 96 02/03/18 10:00 30 Mechanical Ventilator 100 02/03/18 09:30 71 30 130/52 (78) 99 02/03/18 09:00 30 Mechanical Ventilator 100 02/03/18 09:00 67 30 126/60 (82) 97 02/03/18 08:30 30 Mechanical Ventilator 100 02/03/18 08:30 66 30 100 02/03/18 08:30 69 30 143/71 (95) 97 02/03/18 08:15 30 Mechanical Ventilator 100 02/03/18 08:00 99.0 69 30 152/69 (96) 97 02/03/18 08:00 Mechanical Ventilator 02/03/18 08:00 100 02/03/18 08:00 71 02/03/18 08:00 30 Mechanical Ventilator 100 02/03/18 07:30 71 30 125/55 (78) 100 02/03/18 07:00 70 30 116/53 (74) 100 02/03/18 07:00 30 Endotracheal Tube 100 02/03/18 06:50 65 31 98 Mechanical Ventilator 100 02/03/18 06:49 65 30 100 02/03/18 06:42 64 30 98 Mechanical Ventilator 100 02/03/18 06:42 100 02/03/18 06:00 74 30 94/58 (70) 100 02/03/18 06:00 30 Endotracheal Tube 100 02/03/18 05:02 66 30 100 02/03/18 05:00 30 Endotracheal Tube 100 02/03/18 05:00 74 30 126/60 (82) 97 02/03/18 04:00 Mechanical Ventilator 02/03/18 04:00 100 02/03/18 04:00 25 Endotracheal Tube 100 02/03/18 04:00 98.2 67 25 151/67 (95) 97 02/03/18 04:00 65 02/03/18 03:07 68 30 100 02/03/18 03:00 70 29 134/48 (76) 97 02/03/18 03:00 29 Endotracheal Tube 100 02/03/18 02:00 29 Endotracheal Tube 100 02/03/18 02:00 70 29 105/48 (67) 97 02/03/18 01:22 65 31 96 Mechanical Ventilator 100 02/03/18 01:12 100 02/03/18 01:12 65 30 97 Mechanical Ventilator 100 02/03/18 01:11 65 30 100 02/03/18 01:00 30 Endotracheal Tube 100 02/03/18 01:00 67 30 108/59 (75) 97 02/03/18 00:00 Mechanical Ventilator 02/03/18 00:00 98.0 67 30 108/56 (73) 97 02/03/18 00:00 30 Endotracheal Tube 100 02/03/18 00:00 66 02/03/18 00:00 100 02/02/18 23:20 68 30 100 02/02/18 23:00 65 29 107/55 (72) 97 02/02/18 23:00 29 Endotracheal Tube 100 02/02/18 22:00 28 Endotracheal Tube 100 02/02/18 22:00 65 25 149/69 (95) 95 02/02/18 21:02 70 30 100 02/02/18 21:00 98.0 67 25 124/60 (81) 95 02/02/18 21:00 30 Endotracheal Tube 100 02/02/18 20:28 99.7 02/02/18 20:25 75 131/59 02/02/18 20:00 75 02/02/18 20:00 Mechanical Ventilator 02/02/18 20:00 100 02/02/18 20:00 99.7 75 30 131/59 (83) 97 02/02/18 19:56 30 100.0 100 02/02/18 19:15 64 32 95 Mechanical Ventilator 100 02/02/18 19:05 68 31 96 Mechanical Ventilator 100 02/02/18 19:05 100 02/02/18 19:04 68 31 100 02/02/18 19:00 73 25 127/65 (85) 95 02/02/18 18:00 77 25 132/72 (92) 95 02/02/18 17:15 67 30 100 02/02/18 17:00 73 25 130/65 (86) 95 02/02/18 16:00 Mechanical Ventilator 02/02/18 16:00 85 02/02/18 16:00 100 02/02/18 16:00 98.2 75 24 118/55 (76) 94 02/02/18 15:27 85 30 96 Mechanical Ventilator 80 02/02/18 15:25 65 30 100 02/02/18 15:17 65 30 92 Mechanical Ventilator 80 02/02/18 15:17 80 02/02/18 15:00 73 25 120/65 (83) 95 02/02/18 15:00 Mechanical Ventilator 02/02/18 14:00 73 25 127/65 (85) 95 02/02/18 14:00 Endotracheal Tube 02/02/18 13:00 76 24 120/60 (80) 95 02/02/18 13:00 Mechanical Ventilator Intake and Output 02/02/18 02/03/18 19:00 07:00 Intake Total 900 ml 1207 ml Output Total 780 ml 495 ml Balance 120 ml 712 ml Free Water 100 ml IV Total 300 ml 447 ml Tube Feeding 600 ml 600 ml Other 60 ml Output Urine Total 780 ml 495 ml # Bowel Movements 2 Laboratory Tests Test 02/03/18 03:50 White Blood Count 14.7 K/UL (4.8-10.8) H Red Blood Count 3.30 M/UL (4.70-6.10) L Hemoglobin 10.6 G/DL (14.2-18.0) L Hematocrit 31.5 % (42.0-52.0) L Mean Corpuscular Volume 96 FL (80-99) Mean Corpuscular Hemoglobin 32.0 PG (27.0-31.0) H Mean Corpuscular Hemoglobin Concent 33.5 G/DL (32.0-36.0) Red Cell Distribution Width 13.7 % (11.6-14.8) Platelet Count 209 K/UL (150-450) Mean Platelet Volume 7.2 FL (6.5-10.1) Neutrophils (%) (Auto) 84.2 % (45.0-75.0) H Lymphocytes (%) (Auto) 9.2 % (20.0-45.0) L Monocytes (%) (Auto) 5.7 % (1.0-10.0) Eosinophils (%) (Auto) 0.6 % (0.0-3.0) Basophils (%) (Auto) 0.3 % (0.0-2.0) Sodium Level 149 MMOL/L (136-145) H Potassium Level 3.9 MMOL/L (3.5-5.1) Chloride Level 112 MMOL/L (98-107) H Carbon Dioxide Level 34 MMOL/L (21-32) H Anion Gap 3 mmol/L (5-15) L Blood Urea Nitrogen 31 mg/dL (7-18) H Creatinine 0.8 MG/DL (0.55-1.30) Estimat Glomerular Filtration Rate mL/min (>60) Glucose Level 89 MG/DL (74-106) Calcium Level 8.0 MG/DL (8.5-10.1) L Total Bilirubin 0.9 MG/DL (0.2-1.0) Aspartate Amino Transf (AST/SGOT) 13 U/L (15-37) L Alanine Aminotransferase (ALT/SGPT) 13 U/L (12-78) Alkaline Phosphatase 71 U/L (46-116) Total Protein 5.7 G/DL (6.4-8.2) L Albumin 1.5 G/DL (3.4-5.0) L Globulin 4.2 g/dL Albumin/Globulin Ratio 0.4 (1.0-2.7) L Objective HEAD AND NECK: Orally intubated. LUNGS: Coarse rhonchi CARDIOVASCULAR: Regular S1 and S2 with no murmur. ABDOMEN: Soft. EXTREMITIES: No pitting edema, Josep Brar MD Feb 03, 2018 12:32
--- NOTE | 2018-02-03 12:42 | GI Progress Note ---
Assessment/Plan Problems: (1) Constipation ICD Codes: K59.00 - Constipation, unspecified SNOMED: 91591165 (2) Gastroparesis ICD Codes: K31.84 - Gastroparesis SNOMED: 311645407 (3) Abnormal LFTs ICD Codes: R94.5 - Abnormal results of liver function studies SNOMED: 965808792 Status: unchanged Status Narrative Discussed with Dr. Salgado. Assessment/Plan hepatitis panel reviewed >> active Hep A infection anemia work up reviewed >> folate and iron deficiency NGT present recent KUB >> no acute findings ET tube on mech vent NGTFs per RD to goal, PEG if necessary low dose erythromycin if needed for GI motility OB stool r/o GI bleed uncollected monitor H&H, prn transfusions bowel regime >> lactulose TID >> had BM yesterday ppi folate fu labs The patient was seen and examined at bedside and all new and available data was reviewed in the patients chart. I agree with the above findings, impression and plan. (Patient seen earlier today. Signature stamp does not reflect patient encounter time.). - Peter Salgado MD Subjective Subjective limited Objective Last 24 Hour Vital Signs Date Time Temp Pulse Resp B/P (MAP) Pulse Ox O2 Delivery O2 Flow Rate FiO2 02/03/18 12:00 100 02/03/18 12:00 98.9 66 30 108/58 (75) 98 02/03/18 11:30 61 30 103/50 (67) 98 02/03/18 11:00 61 30 110/54 (72) 98 02/03/18 11:00 30 Mechanical Ventilator 100 02/03/18 10:46 61 31 100 02/03/18 10:30 71 27 132/90 (104) 97 02/03/18 10:16 86 132/79 02/03/18 10:00 72 28 132/79 (96) 96 02/03/18 10:00 30 Mechanical Ventilator 100 02/03/18 09:30 71 30 130/52 (78) 99 02/03/18 09:00 30 Mechanical Ventilator 100 02/03/18 09:00 67 30 126/60 (82) 97 02/03/18 08:30 30 Mechanical Ventilator 100 02/03/18 08:30 66 30 100 02/03/18 08:30 69 30 143/71 (95) 97 02/03/18 08:15 30 Mechanical Ventilator 100 02/03/18 08:00 99.0 69 30 152/69 (96) 97 02/03/18 08:00 Mechanical Ventilator 02/03/18 08:00 100 02/03/18 08:00 71 02/03/18 08:00 30 Mechanical Ventilator 100 02/03/18 07:30 71 30 125/55 (78) 100 02/03/18 07:00 70 30 116/53 (74) 100 02/03/18 07:00 30 Endotracheal Tube 100 02/03/18 06:50 65 31 98 Mechanical Ventilator 100 02/03/18 06:49 65 30 100 02/03/18 06:42 64 30 98 Mechanical Ventilator 100 02/03/18 06:42 100 02/03/18 06:00 74 30 94/58 (70) 100 02/03/18 06:00 30 Endotracheal Tube 100 02/03/18 05:02 66 30 100 02/03/18 05:00 30 Endotracheal Tube 100 02/03/18 05:00 74 30 126/60 (82) 97 02/03/18 04:00 Mechanical Ventilator 02/03/18 04:00 100 02/03/18 04:00 25 Endotracheal Tube 100 02/03/18 04:00 98.2 67 25 151/67 (95) 97 02/03/18 04:00 65 02/03/18 03:07 68 30 100 02/03/18 03:00 70 29 134/48 (76) 97 02/03/18 03:00 29 Endotracheal Tube 100 02/03/18 02:00 29 Endotracheal Tube 100 02/03/18 02:00 70 29 105/48 (67) 97 02/03/18 01:22 65 31 96 Mechanical Ventilator 100 02/03/18 01:12 100 02/03/18 01:12 65 30 97 Mechanical Ventilator 100 02/03/18 01:11 65 30 100 02/03/18 01:00 30 Endotracheal Tube 100 02/03/18 01:00 67 30 108/59 (75) 97 02/03/18 00:00 Mechanical Ventilator 02/03/18 00:00 98.0 67 30 108/56 (73) 97 02/03/18 00:00 30 Endotracheal Tube 100 02/03/18 00:00 66 02/03/18 00:00 100 02/02/18 23:20 68 30 100 02/02/18 23:00 65 29 107/55 (72) 97 02/02/18 23:00 29 Endotracheal Tube 100 02/02/18 22:00 28 Endotracheal Tube 100 02/02/18 22:00 65 25 149/69 (95) 95 02/02/18 21:02 70 30 100 02/02/18 21:00 98.0 67 25 124/60 (81) 95 02/02/18 21:00 30 Endotracheal Tube 100 02/02/18 20:28 99.7 02/02/18 20:25 75 131/59 02/02/18 20:00 75 02/02/18 20:00 Mechanical Ventilator 02/02/18 20:00 100 02/02/18 20:00 99.7 75 30 131/59 (83) 97 02/02/18 19:56 30 100.0 100 02/02/18 19:15 64 32 95 Mechanical Ventilator 100 02/02/18 19:05 68 31 96 Mechanical Ventilator 100 02/02/18 19:05 100 02/02/18 19:04 68 31 100 02/02/18 19:00 73 25 127/65 (85) 95 02/02/18 18:00 77 25 132/72 (92) 95 02/02/18 17:15 67 30 100 02/02/18 17:00 73 25 130/65 (86) 95 02/02/18 16:00 Mechanical Ventilator 02/02/18 16:00 85 02/02/18 16:00 100 02/02/18 16:00 98.2 75 24 118/55 (76) 94 02/02/18 15:27 85 30 96 Mechanical Ventilator 80 02/02/18 15:25 65 30 100 02/02/18 15:17 65 30 92 Mechanical Ventilator 80 02/02/18 15:17 80 02/02/18 15:00 73 25 120/65 (83) 95 02/02/18 15:00 Mechanical Ventilator 02/02/18 14:00 73 25 127/65 (85) 95 02/02/18 14:00 Endotracheal Tube 02/02/18 13:00 76 24 120/60 (80) 95 02/02/18 13:00 Mechanical Ventilator Intake and Output 02/02/18 02/03/18 19:00 07:00 Intake Total 900 ml 1207 ml Output Total 780 ml 495 ml Balance 120 ml 712 ml Free Water 100 ml IV Total 300 ml 447 ml Tube Feeding 600 ml 600 ml Other 60 ml Output Urine Total 780 ml 495 ml # Bowel Movements 2 Laboratory Tests Test 02/03/18 03:50 White Blood Count 14.7 K/UL (4.8-10.8) H Red Blood Count 3.30 M/UL (4.70-6.10) L Hemoglobin 10.6 G/DL (14.2-18.0) L Hematocrit 31.5 % (42.0-52.0) L Mean Corpuscular Volume 96 FL (80-99) Mean Corpuscular Hemoglobin 32.0 PG (27.0-31.0) H Mean Corpuscular Hemoglobin Concent 33.5 G/DL (32.0-36.0) Red Cell Distribution Width 13.7 % (11.6-14.8) Platelet Count 209 K/UL (150-450) Mean Platelet Volume 7.2 FL (6.5-10.1) Neutrophils (%) (Auto) 84.2 % (45.0-75.0) H Lymphocytes (%) (Auto) 9.2 % (20.0-45.0) L Monocytes (%) (Auto) 5.7 % (1.0-10.0) Eosinophils (%) (Auto) 0.6 % (0.0-3.0) Basophils (%) (Auto) 0.3 % (0.0-2.0) Sodium Level 149 MMOL/L (136-145) H Potassium Level 3.9 MMOL/L (3.5-5.1) Chloride Level 112 MMOL/L (98-107) H Carbon Dioxide Level 34 MMOL/L (21-32) H Anion Gap 3 mmol/L (5-15) L Blood Urea Nitrogen 31 mg/dL (7-18) H Creatinine 0.8 MG/DL (0.55-1.30) Estimat Glomerular Filtration Rate mL/min (>60) Glucose Level 89 MG/DL (74-106) Calcium Level 8.0 MG/DL (8.5-10.1) L Total Bilirubin 0.9 MG/DL (0.2-1.0) Aspartate Amino Transf (AST/SGOT) 13 U/L (15-37) L Alanine Aminotransferase (ALT/SGPT) 13 U/L (12-78) Alkaline Phosphatase 71 U/L (46-116) Total Protein 5.7 G/DL (6.4-8.2) L Albumin 1.5 G/DL (3.4-5.0) L Globulin 4.2 g/dL Albumin/Globulin Ratio 0.4 (1.0-2.7) L Height (Feet): 5 Height (Inches): 9.00 Weight (Pounds): 185 General Appearance: alert Cardiovascular: normal rate Respiratory/Chest: other - mech vent Abdominal Exam: other - NGT Willa Woods NP Feb 03, 2018 12:42
[2018-02-03] MEDS ORDERED: Lactulose 20gm/30ml UDC NG PRN ×2 (13:00→13:15)
--- NOTE | 2018-02-03 13:04 | Infectious Diseases Prog Note ---
Assessment/Plan Assessment/Plan A: 1. Sepsis 2. Hypoxemic respiratory failure 3. Acute renal failure. 4. Lactic acidosis. 5. Increase in bilirubin, s/p cholecystectomy 6. Pulmonary fibrosis 7. Pulmonary hypertension 8.Hepatitis A P; Continue Cefepime Subjective ROS Limited/Unobtainable: Yes Allergies: Coded Allergies: No Known Allergies (Unverified , 01/24/18) Objective Vital Signs Last 24 Hour Vital Signs Date Time Temp Pulse Resp B/P (MAP) Pulse Ox O2 Delivery O2 Flow Rate FiO2 02/03/18 12:44 66 31 97 Mechanical Ventilator 100 02/03/18 12:41 63 30 100 02/03/18 12:38 66 30 97 Mechanical Ventilator 100 02/03/18 12:38 100 02/03/18 12:00 Mechanical Ventilator 02/03/18 12:00 100 02/03/18 12:00 62 02/03/18 12:00 98.9 66 30 108/58 (75) 98 02/03/18 11:30 61 30 103/50 (67) 98 02/03/18 11:00 61 30 110/54 (72) 98 02/03/18 11:00 30 Mechanical Ventilator 100 02/03/18 10:46 61 31 100 02/03/18 10:30 71 27 132/90 (104) 97 02/03/18 10:16 86 132/79 02/03/18 10:00 72 28 132/79 (96) 96 02/03/18 10:00 30 Mechanical Ventilator 100 02/03/18 09:30 71 30 130/52 (78) 99 02/03/18 09:00 30 Mechanical Ventilator 100 02/03/18 09:00 67 30 126/60 (82) 97 02/03/18 08:30 30 Mechanical Ventilator 100 02/03/18 08:30 66 30 100 02/03/18 08:30 69 30 143/71 (95) 97 02/03/18 08:15 30 Mechanical Ventilator 100 02/03/18 08:00 99.0 69 30 152/69 (96) 97 02/03/18 08:00 Mechanical Ventilator 02/03/18 08:00 100 02/03/18 08:00 71 02/03/18 08:00 30 Mechanical Ventilator 100 02/03/18 07:30 71 30 125/55 (78) 100 02/03/18 07:00 70 30 116/53 (74) 100 02/03/18 07:00 30 Endotracheal Tube 100 02/03/18 06:50 65 31 98 Mechanical Ventilator 100 02/03/18 06:49 65 30 100 02/03/18 06:42 64 30 98 Mechanical Ventilator 100 02/03/18 06:42 100 02/03/18 06:00 74 30 94/58 (70) 100 02/03/18 06:00 30 Endotracheal Tube 100 02/03/18 05:02 66 30 100 02/03/18 05:00 30 Endotracheal Tube 100 02/03/18 05:00 74 30 126/60 (82) 97 02/03/18 04:00 Mechanical Ventilator 02/03/18 04:00 100 02/03/18 04:00 25 Endotracheal Tube 100 02/03/18 04:00 98.2 67 25 151/67 (95) 97 02/03/18 04:00 65 02/03/18 03:07 68 30 100 02/03/18 03:00 70 29 134/48 (76) 97 02/03/18 03:00 29 Endotracheal Tube 100 02/03/18 02:00 29 Endotracheal Tube 100 02/03/18 02:00 70 29 105/48 (67) 97 02/03/18 01:22 65 31 96 Mechanical Ventilator 100 02/03/18 01:12 100 02/03/18 01:12 65 30 97 Mechanical Ventilator 100 02/03/18 01:11 65 30 100 02/03/18 01:00 30 Endotracheal Tube 100 02/03/18 01:00 67 30 108/59 (75) 97 02/03/18 00:00 Mechanical Ventilator 02/03/18 00:00 98.0 67 30 108/56 (73) 97 02/03/18 00:00 30 Endotracheal Tube 100 02/03/18 00:00 66 02/03/18 00:00 100 02/02/18 23:20 68 30 100 02/02/18 23:00 65 29 107/55 (72) 97 02/02/18 23:00 29 Endotracheal Tube 100 02/02/18 22:00 28 Endotracheal Tube 100 02/02/18 22:00 65 25 149/69 (95) 95 02/02/18 21:02 70 30 100 02/02/18 21:00 98.0 67 25 124/60 (81) 95 02/02/18 21:00 30 Endotracheal Tube 100 02/02/18 20:28 99.7 18 20:25 75 131/59 02/02/18 20:00 75 02/02/18 20:00 Mechanical Ventilator 02/02/18 20:00 100 02/02/18 20:00 99.7 75 30 131/59 (83) 97 02/02/18 19:56 30 100.0 100 02/02/18 19:15 64 32 95 Mechanical Ventilator 100 02/02/18 19:05 68 31 96 Mechanical Ventilator 100 02/02/18 19:05 100 02/02/18 19:04 68 31 100 02/02/18 19:00 73 25 127/65 (85) 95 02/02/18 18:00 77 25 132/72 (92) 95 02/02/18 17:15 67 30 100 02/02/18 17:00 73 25 130/65 (86) 95 02/02/18 16:00 Mechanical Ventilator 02/02/18 16:00 85 02/02/18 16:00 100 02/02/18 16:00 98.2 75 24 118/55 (76) 94 02/02/18 15:27 85 30 96 Mechanical Ventilator 80 02/02/18 15:25 65 30 100 02/02/18 15:17 65 30 92 Mechanical Ventilator 80 02/02/18 15:17 80 02/02/18 15:00 73 25 120/65 (83) 95 02/02/18 15:00 Mechanical Ventilator 02/02/18 14:00 73 25 127/65 (85) 95 02/02/18 14:00 Endotracheal Tube Height (Feet): 5 Height (Inches): 9.00 Weight (Pounds): 185 HEENT: other - orally intubated Respiratory/Chest: decreased breath sounds, other - on ventilator, few rhonchi Cardiovascular: normal rate Abdomen: soft, non tender Extremities: other - edema of arms Neurologic/Psychiatric: disoriented, other - on restraint Laboratory Tests Test 02/03/18 03:50 White Blood Count 14.7 K/UL (4.8-10.8) H Red Blood Count 3.30 M/UL (4.70-6.10) L Hemoglobin 10.6 G/DL (14.2-18.0) L Hematocrit 31.5 % (42.0-52.0) L Mean Corpuscular Volume 96 FL (80-99) Mean Corpuscular Hemoglobin 32.0 PG (27.0-31.0) H Mean Corpuscular Hemoglobin Concent 33.5 G/DL (32.0-36.0) Red Cell Distribution Width 13.7 % (11.6-14.8) Platelet Count 209 K/UL (150-450) Mean Platelet Volume 7.2 FL (6.5-10.1) Neutrophils (%) (Auto) 84.2 % (45.0-75.0) H Lymphocytes (%) (Auto) 9.2 % (20.0-45.0) L Monocytes (%) (Auto) 5.7 % (1.0-10.0) Eosinophils (%) (Auto) 0.6 % (0.0-3.0) Basophils (%) (Auto) 0.3 % (0.0-2.0) Sodium Level 149 MMOL/L (136-145) H Potassium Level 3.9 MMOL/L (3.5-5.1) Chloride Level 112 MMOL/L (98-107) H Carbon Dioxide Level 34 MMOL/L (21-32) H Anion Gap 3 mmol/L (5-15) L Blood Urea Nitrogen 31 mg/dL (7-18) H Creatinine 0.8 MG/DL (0.55-1.30) Estimat Glomerular Filtration Rate mL/min (>60) Glucose Level 89 MG/DL (74-106) Calcium Level 8.0 MG/DL (8.5-10.1) L Total Bilirubin 0.9 MG/DL (0.2-1.0) Aspartate Amino Transf (AST/SGOT) 13 U/L (15-37) L Alanine Aminotransferase (ALT/SGPT) 13 U/L (12-78) Alkaline Phosphatase 71 U/L (46-116) Total Protein 5.7 G/DL (6.4-8.2) L Albumin 1.5 G/DL (3.4-5.0) L Globulin 4.2 g/dL Albumin/Globulin Ratio 0.4 (1.0-2.7) L Current Medications Medications (Trade) Dose Ordered Sig/Chaka Route PRN Reason Start Time Stop Time Status Last Admin Dose Admin Acetaminophen (Tylenol) 650 mg PRN PRN RECTAL Prn Headache/Temp > 101 01/26/18 22:15 02/23/18 22:14 01/28/18 20:35 Albuterol/ Ipratropium (Albuterol/ Ipratropium) 3 ml Q4H PRN HHN Shortness of Breath 02/01/18 13:30 02/06/18 13:29 Albuterol/ Ipratropium (Albuterol/ Ipratropium) 3 ml Q6HRT HHN 02/01/18 19:00 02/06/18 18:59 02/03/18 12:43 Cefepime HCl 1 gm/ Dextrose 55 ml @ 110 mls/hr Q12HR@1000,2200 IVPB 01/30/18 10:00 02/06/18 09:59 02/03/18 10:16 Dextrose/Sodium Chloride 1,000 ml @ 25 mls/hr Q24H IV 02/02/18 14:00 02/28/18 13:59 02/03/18 04:00 Diphenhydramine HCl (Benadryl) 25 mg Q6H PRN IVP Itching 01/26/18 22:15 02/25/18 22:14 Famotidine (Pepcid I.v.) 20 mg Q12HR IVP 01/26/18 10:00 02/24/18 09:59 02/03/18 10:15 Fentanyl Citrate 1000 mcg/Sodium Chloride 100 ml @ 0 mls/hr Q24H IV 02/02/18 15:13 02/09/18 15:12 02/02/18 19:56 Haloperidol Lactate (Haldol) 5 mg Q6H PRN IM Agitation 01/27/18 13:00 02/26/18 12:59 Heparin Sodium (Porcine) (Heparin 5000 units/ml) 5,000 units EVERY 12 HOURS SUBQ 01/27/18 21:00 02/26/18 20:59 02/03/18 10:17 Lactulose (Cephulac) 20 gm DAILYPRN PRN NG Constipation 02/03/18 13:15 03/04/18 12:59 UNV Magnesium Hydroxide (Mom) 30 ml DAILYPRN PRN ORAL Constipation 01/30/18 14:15 03/01/18 14:14 02/02/18 07:00 Metoprolol Tartrate (Lopressor) 50 mg Q12HR ORAL 01/31/18 21:00 02/25/18 20:59 02/03/18 10:16 Midazolam HCl (Versed 2mg/2ml vial) 2 mg EVERY 4 HOURS PRN IVP For Anxiety 01/26/18 10:00 02/25/18 09:59 02/02/18 02:16 Olanzapine (ZyPREXA) 2.5 mg BEDTIME PRN ORAL agitation 01/26/18 21:00 02/25/18 20:59 Ondansetron HCl (Zofran) 4 mg Q6H PRN IVP Nausea & Vomiting 01/26/18 22:15 02/25/18 22:14 Polyethylene Glycol (Miralax) 17 gm BEDTIME NG 01/31/18 21:00 03/02/18 20:59 02/01/18 20:39 Ha Tello MD Feb 03, 2018 13:04
--- NOTE | 2018-02-03 13:17 | General Surgery Progress Note ---
General Surgery-Progress Note Subjective Additional Comments leukocytosis worsening. not weaning off vent well Objective Last 24 Hour Vital Signs Date Time Temp Pulse Resp B/P (MAP) Pulse Ox O2 Delivery O2 Flow Rate FiO2 02/03/18 13:00 63 30 110/53 (72) 98 02/03/18 12:44 66 31 97 Mechanical Ventilator 100 02/03/18 12:41 63 30 100 02/03/18 12:38 66 30 97 Mechanical Ventilator 100 02/03/18 12:38 100 02/03/18 12:00 Mechanical Ventilator 02/03/18 12:00 100 02/03/18 12:00 62 02/03/18 12:00 98.9 66 30 108/58 (75) 98 02/03/18 11:30 61 30 103/50 (67) 98 02/03/18 11:00 61 30 110/54 (72) 98 02/03/18 11:00 30 Mechanical Ventilator 100 02/03/18 10:46 61 31 100 02/03/18 10:30 71 27 132/90 (104) 97 02/03/18 10:16 86 132/79 02/03/18 10:00 72 28 132/79 (96) 96 02/03/18 10:00 30 Mechanical Ventilator 100 02/03/18 09:30 71 30 130/52 (78) 99 02/03/18 09:00 30 Mechanical Ventilator 100 02/03/18 09:00 67 30 126/60 (82) 97 02/03/18 08:30 30 Mechanical Ventilator 100 02/03/18 08:30 66 30 100 02/03/18 08:30 69 30 143/71 (95) 97 02/03/18 08:15 30 Mechanical Ventilator 100 02/03/18 08:00 99.0 69 30 152/69 (96) 97 02/03/18 08:00 Mechanical Ventilator 02/03/18 08:00 100 02/03/18 08:00 71 02/03/18 08:00 30 Mechanical Ventilator 100 02/03/18 07:30 71 30 125/55 (78) 100 02/03/18 07:00 70 30 116/53 (74) 100 02/03/18 07:00 30 Endotracheal Tube 100 02/03/18 06:50 65 31 98 Mechanical Ventilator 100 02/03/18 06:49 65 30 100 02/03/18 06:42 64 30 98 Mechanical Ventilator 100 02/03/18 06:42 100 02/03/18 06:00 74 30 94/58 (70) 100 02/03/18 06:00 30 Endotracheal Tube 100 02/03/18 05:02 66 30 100 02/03/18 05:00 30 Endotracheal Tube 100 02/03/18 05:00 74 30 126/60 (82) 97 02/03/18 04:00 Mechanical Ventilator 02/03/18 04:00 100 02/03/18 04:00 25 Endotracheal Tube 100 02/03/18 04:00 98.2 67 25 151/67 (95) 97 02/03/18 04:00 65 02/03/18 03:07 68 30 100 02/03/18 03:00 70 29 134/48 (76) 97 02/03/18 03:00 29 Endotracheal Tube 100 02/03/18 02:00 29 Endotracheal Tube 100 02/03/18 02:00 70 29 105/48 (67) 97 02/03/18 01:22 65 31 96 Mechanical Ventilator 100 02/03/18 01:12 100 02/03/18 01:12 65 30 97 Mechanical Ventilator 100 02/03/18 01:11 65 30 100 02/03/18 01:00 30 Endotracheal Tube 100 02/03/18 01:00 67 30 108/59 (75) 97 02/03/18 00:00 Mechanical Ventilator 02/03/18 00:00 98.0 67 30 108/56 (73) 97 02/03/18 00:00 30 Endotracheal Tube 100 02/03/18 00:00 66 02/03/18 00:00 100 02/02/18 23:20 68 30 100 02/02/18 23:00 65 29 107/55 (72) 97 02/02/18 23:00 29 Endotracheal Tube 100 02/02/18 22:00 28 Endotracheal Tube 100 02/02/18 22:00 65 25 149/69 (95) 95 02/02/18 21:02 70 30 100 02/02/18 21:00 98.0 67 25 124/60 (81) 95 02/02/18 21:00 30 Endotracheal Tube 100 02/02/18 20:28 99.7 02/02/18 20:25 75 131/59 02/02/18 20:00 75 02/02/18 20:00 Mechanical Ventilator 02/02/18 20:00 100 02/02/18 20:00 99.7 75 30 131/59 (83) 97 02/02/18 19:56 30 100.0 100 02/02/18 19:15 64 32 95 Mechanical Ventilator 100 02/02/18 19:05 68 31 96 Mechanical Ventilator 100 02/02/18 19:05 100 02/02/18 19:04 68 31 100 02/02/18 19:00 73 25 127/65 (85) 95 02/02/18 18:00 77 25 132/72 (92) 95 02/02/18 17:15 67 30 100 02/02/18 17:00 73 25 130/65 (86) 95 02/02/18 16:00 Mechanical Ventilator 02/02/18 16:00 85 02/02/18 16:00 100 02/02/18 16:00 98.2 75 24 118/55 (76) 94 02/02/18 15:27 85 30 96 Mechanical Ventilator 80 02/02/18 15:25 65 30 100 02/02/18 15:17 65 30 92 Mechanical Ventilator 80 02/02/18 15:17 80 02/02/18 15:00 73 25 120/65 (83) 95 02/02/18 15:00 Mechanical Ventilator 02/02/18 14:00 73 25 127/65 (85) 95 02/02/18 14:00 Endotracheal Tube I&O Intake and Output 02/02/18 02/03/18 19:00 07:00 Intake Total 900 ml 1207 ml Output Total 780 ml 495 ml Balance 120 ml 712 ml Free Water 100 ml IV Total 300 ml 447 ml Tube Feeding 600 ml 600 ml Other 60 ml Output Urine Total 780 ml 495 ml # Bowel Movements 2 Dressing: other Wound: other Drains: other Cardiovascular: RSR Respiratory: clear, decreased breath sounds Abdomen: soft, non-tender, present bowel sounds Extremities: other Laboratory Tests Test 02/03/18 03:50 White Blood Count 14.7 K/UL (4.8-10.8) H Red Blood Count 3.30 M/UL (4.70-6.10) L Hemoglobin 10.6 G/DL (14.2-18.0) L Hematocrit 31.5 % (42.0-52.0) L Mean Corpuscular Volume 96 FL (80-99) Mean Corpuscular Hemoglobin 32.0 PG (27.0-31.0) H Mean Corpuscular Hemoglobin Concent 33.5 G/DL (32.0-36.0) Red Cell Distribution Width 13.7 % (11.6-14.8) Platelet Count 209 K/UL (150-450) Mean Platelet Volume 7.2 FL (6.5-10.1) Neutrophils (%) (Auto) 84.2 % (45.0-75.0) H Lymphocytes (%) (Auto) 9.2 % (20.0-45.0) L Monocytes (%) (Auto) 5.7 % (1.0-10.0) Eosinophils (%) (Auto) 0.6 % (0.0-3.0) Basophils (%) (Auto) 0.3 % (0.0-2.0) Sodium Level 149 MMOL/L (136-145) H Potassium Level 3.9 MMOL/L (3.5-5.1) Chloride Level 112 MMOL/L (98-107) H Carbon Dioxide Level 34 MMOL/L (21-32) H Anion Gap 3 mmol/L (5-15) L Blood Urea Nitrogen 31 mg/dL (7-18) H Creatinine 0.8 MG/DL (0.55-1.30) Estimat Glomerular Filtration Rate mL/min (>60) Glucose Level 89 MG/DL (74-106) Calcium Level 8.0 MG/DL (8.5-10.1) L Total Bilirubin 0.9 MG/DL (0.2-1.0) Aspartate Amino Transf (AST/SGOT) 13 U/L (15-37) L Alanine Aminotransferase (ALT/SGPT) 13 U/L (12-78) Alkaline Phosphatase 71 U/L (46-116) Total Protein 5.7 G/DL (6.4-8.2) L Albumin 1.5 G/DL (3.4-5.0) L Globulin 4.2 g/dL Albumin/Globulin Ratio 0.4 (1.0-2.7) L Plan Problems: (1) Decubitus ulcer of sacral region, stage 3 Assessment & Plan: Stage III full thickness pressure injury sacrum present on admission (L)2cm x (W)1.8cm ,wound bed with 80% yellow slough ,20% granular Borders slightly macerated. Non-blanching erythema without elevation in skin temp, or induration periwound. NO odor noted. Abrasions noted to R elbow (L)3.2cm x (W)1.9cm.Wound with Biofilm ,erythema al; lynn borders .Periwound clean and intact. Abrasion noted to L elbow(L)5.5cm x (W)1.6cm ,biofim noted to wound bed .erythema along borders .Periwound without erythema or elevation in skin temp. Abrasion lateral L knee with dry scab. Abrasion medial R knee with dry scab. Bilat heels boggy with non-blanching erythema. Non-tender when palpated. Pt repositioned with pillow on his side but restless and repositioned self on back. given critical condition will continue with maximal efforts to reduce worsening wounds as in this condition may deteriorate Tx.Plan: Cleanse R and L elbows with Saline.Apply Silvasorb Gel to both elbows .Cover with Optifoam drsg .Change every 3 Days and prn. Cleanse Sacral Pressure injury with Saline.Apply Therahoney .Cavilon periwound.Cover with Optifoam drsg Daily and prn. Apply Cavilon to Both heels.Cover with Optifoam drsg .Change Every 7 days and prn. Cavilon to abrasions R and L lower ext.Cover with Optifoam change every 7 days and prn. Off-load heels with pillow. Reposition at least every 2 hours or as tolerated. Surface support mattress. (2) Abnormal LFTs Assessment & Plan: US reviewed - absent GB dilated ducts CT reviewed - dilated duct without notable obstruction LFT's noted and elevated t bili trending down no jaundice AST/ALT nml Alk phos nml leukocytosis trending down -no acute surgical intervention necessary -t bili and d bili correlate. unlikely obstructive at this time. especially with history of cholecystectomy prior -trend labs thank you (3) Severe sepsis Assessment & Plan: not weaning off vent easy. will likely require intermission coordinator vent support consider trach soon Myke Merino Feb 03, 2018 13:17
--- NOTE | 2018-02-03 13:25 | General Progress Note ---
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 (2) UTI (urinary tract infection) ICD Codes: N39.0 - Urinary tract infection, site not specified SNOMED: 19603765, 244731066 Qualifiers: Qualified Codes: N39.0 - Urinary tract infection, site not specified (3) Severe sepsis ICD Codes: A41.9 - Sepsis, unspecified organism; R65.20 - Severe sepsis without septic shock SNOMED: 21288349 Status: unchanged Assessment/Plan cont Haldol the family should make decisions the pt lacks capacity provided ro/st Subjective Neurologic/Psychiatric: Reports: anxiety Allergies: Coded Allergies: No Known Allergies (Unverified , 01/24/18) Subjective the pt is yelling, agitated confused and disoriented Objective Last 24 Hour Vital Signs Date Time Temp Pulse Resp B/P (MAP) Pulse Ox O2 Delivery O2 Flow Rate FiO2 02/03/18 13:00 63 30 110/53 (72) 98 02/03/18 12:44 66 31 97 Mechanical Ventilator 100 02/03/18 12:41 63 30 100 02/03/18 12:38 66 30 97 Mechanical Ventilator 100 02/03/18 12:38 100 02/03/18 12:00 Mechanical Ventilator 02/03/18 12:00 100 02/03/18 12:00 62 02/03/18 12:00 98.9 66 30 108/58 (75) 98 02/03/18 11:30 61 30 103/50 (67) 98 02/03/18 11:00 61 30 110/54 (72) 98 02/03/18 11:00 30 Mechanical Ventilator 100 02/03/18 10:46 61 31 100 02/03/18 10:30 71 27 132/90 (104) 97 02/03/18 10:16 86 132/79 02/03/18 10:00 72 28 132/79 (96) 96 02/03/18 10:00 30 Mechanical Ventilator 100 02/03/18 09:30 71 30 130/52 (78) 99 02/03/18 09:00 30 Mechanical Ventilator 100 02/03/18 09:00 67 30 126/60 (82) 97 02/03/18 08:30 30 Mechanical Ventilator 100 02/03/18 08:30 66 30 100 02/03/18 08:30 69 30 143/71 (95) 97 02/03/18 08:15 30 Mechanical Ventilator 100 02/03/18 08:00 99.0 69 30 152/69 (96) 97 02/03/18 08:00 Mechanical Ventilator 02/03/18 08:00 100 02/03/18 08:00 71 02/03/18 08:00 30 Mechanical Ventilator 100 02/03/18 07:30 71 30 125/55 (78) 100 02/03/18 07:00 70 30 116/53 (74) 100 02/03/18 07:00 30 Endotracheal Tube 100 02/03/18 06:50 65 31 98 Mechanical Ventilator 100 02/03/18 06:49 65 30 100 02/03/18 06:42 64 30 98 Mechanical Ventilator 100 02/03/18 06:42 100 02/03/18 06:00 74 30 94/58 (70) 100 02/03/18 06:00 30 Endotracheal Tube 100 02/03/18 05:02 66 30 100 02/03/18 05:00 30 Endotracheal Tube 100 02/03/18 05:00 74 30 126/60 (82) 97 02/03/18 04:00 Mechanical Ventilator 02/03/18 04:00 100 02/03/18 04:00 25 Endotracheal Tube 100 02/03/18 04:00 98.2 67 25 151/67 (95) 97 02/03/18 04:00 65 02/03/18 03:07 68 30 100 02/03/18 03:00 70 29 134/48 (76) 97 02/03/18 03:00 29 Endotracheal Tube 100 02/03/18 02:00 29 Endotracheal Tube 100 02/03/18 02:00 70 29 105/48 (67) 97 02/03/18 01:22 65 31 96 Mechanical Ventilator 100 02/03/18 01:12 100 02/03/18 01:12 65 30 97 Mechanical Ventilator 100 02/03/18 01:11 65 30 100 02/03/18 01:00 30 Endotracheal Tube 100 02/03/18 01:00 67 30 108/59 (75) 97 02/03/18 00:00 Mechanical Ventilator 02/03/18 00:00 98.0 67 30 108/56 (73) 97 02/03/18 00:00 30 Endotracheal Tube 100 02/03/18 00:00 66 02/03/18 00:00 100 02/02/18 23:20 68 30 100 02/02/18 23:00 65 29 107/55 (72) 97 02/02/18 23:00 29 Endotracheal Tube 100 02/02/18 22:00 28 Endotracheal Tube 100 02/02/18 22:00 65 25 149/69 (95) 95 02/02/18 21:02 70 30 100 02/02/18 21:00 98.0 67 25 124/60 (81) 95 02/02/18 21:00 30 Endotracheal Tube 100 02/02/18 20:28 99.7 02/02/18 20:25 75 131/59 02/02/18 20:00 75 02/02/18 20:00 Mechanical Ventilator 02/02/18 20:00 100 02/02/18 20:00 99.7 75 30 131/59 (83) 97 02/02/18 19:56 30 100.0 100 02/02/18 19:15 64 32 95 Mechanical Ventilator 100 02/02/18 19:05 68 31 96 Mechanical Ventilator 100 02/02/18 19:05 100 02/02/18 19:04 68 31 100 02/02/18 19:00 73 25 127/65 (85) 95 02/02/18 18:00 77 25 132/72 (92) 95 02/02/18 17:15 67 30 100 02/02/18 17:00 73 25 130/65 (86) 95 02/02/18 16:00 Mechanical Ventilator 02/02/18 16:00 85 02/02/18 16:00 100 02/02/18 16:00 98.2 75 24 118/55 (76) 94 02/02/18 15:27 85 30 96 Mechanical Ventilator 80 02/02/18 15:25 65 30 100 02/02/18 15:17 65 30 92 Mechanical Ventilator 80 02/02/18 15:17 80 02/02/18 15:00 73 25 120/65 (83) 95 02/02/18 15:00 Mechanical Ventilator 02/02/18 14:00 73 25 127/65 (85) 95 02/02/18 14:00 Endotracheal Tube Intake and Output 02/02/18 02/03/18 19:00 07:00 Intake Total 900 ml 1207 ml Output Total 780 ml 495 ml Balance 120 ml 712 ml Free Water 100 ml IV Total 300 ml 447 ml Tube Feeding 600 ml 600 ml Other 60 ml Output Urine Total 780 ml 495 ml # Bowel Movements 2 Laboratory Tests 02/03/18 03:50: White Blood Count 14.7H, Red Blood Count 3.30L, Hemoglobin 10.6L, Hematocrit 31.5L, Mean Corpuscular Volume 96, Mean Corpuscular Hemoglobin 32.0H, Mean Corpuscular Hemoglobin Concent 33.5, Red Cell Distribution Width 13.7, Platelet Count 209, Mean Platelet Volume 7.2, Neutrophils (%) (Auto) 84.2H, Lymphocytes ( %) (Auto) 9.2L, Monocytes (%) (Auto) 5.7, Eosinophils (%) (Auto) 0.6, Basophils (%) (Auto) 0.3, Sodium Level 149H, Potassium Level 3.9, Chloride Level 112H, Carbon Dioxide Level 34H, Anion Gap 3L, Blood Urea Nitrogen 31H, Creatinine 0.8 , Estimat Glomerular Filtration Rate , Glucose Level 89, Calcium Level 8.0L, Total Bilirubin 0.9, Aspartate Amino Transf (AST/SGOT) 13L, Alanine Aminotransferase (ALT/SGPT) 13, Alkaline Phosphatase 71, Total Protein 5.7L, Albumin 1.5L, Globulin 4.2, Albumin/Globulin Ratio 0.4L Height (Feet): 5 Height (Inches): 9.00 Weight (Pounds): 185 General Appearance: lethargic, confused, agitated MIPS Medication Reconciliation Is this a Psycho/Diag encounte: Collin Perry MD Feb 03, 2018 13:25
--- NOTE | 2018-02-03 14:19 | Nephrology Progress Note ---
Assessment/Plan Problem List: (1) OLEG (acute kidney injury) (2) Abnormal LFTs (3) Lactic acid acidosis (4) UTI (urinary tract infection) (5) Respiratory disorder with ventilator dependence (6) Pulmonary fibrosis Assessment Acute renal failure, high K Pneumonia / Sepsis / Hypoxia / UTI HypoAlbuminemia / Proteinuria Acute respiratory failure Pulmonary fibrosis Lactic acidosis Plan Kayexelate GT given 01/30 Adjust jackson- Discussed with RN Hydrate- Pulm support / on vent IV antibiotics Watch electrolytes Gastric support Per orders Subjective ROS Limited/Unobtainable: Yes Objective Objective Last 24 Hour Vital Signs Date Time Temp Pulse Resp B/P (MAP) Pulse Ox O2 Delivery O2 Flow Rate FiO2 02/03/18 13:00 63 30 110/53 (72) 98 02/03/18 12:44 66 31 97 Mechanical Ventilator 100 02/03/18 12:41 63 30 100 02/03/18 12:38 66 30 97 Mechanical Ventilator 100 02/03/18 12:38 100 02/03/18 12:00 Mechanical Ventilator 02/03/18 12:00 100 02/03/18 12:00 62 02/03/18 12:00 98.9 66 30 108/58 (75) 98 02/03/18 11:30 61 30 103/50 (67) 98 02/03/18 11:00 61 30 110/54 (72) 98 02/03/18 11:00 30 Mechanical Ventilator 100 02/03/18 10:46 61 31 100 02/03/18 10:30 71 27 132/90 (104) 97 02/03/18 10:16 86 132/79 02/03/18 10:00 72 28 132/79 (96) 96 02/03/18 10:00 30 Mechanical Ventilator 100 02/03/18 09:30 71 30 130/52 (78) 99 02/03/18 09:00 30 Mechanical Ventilator 100 02/03/18 09:00 67 30 126/60 (82) 97 02/03/18 08:30 30 Mechanical Ventilator 100 02/03/18 08:30 66 30 100 02/03/18 08:30 69 30 143/71 (95) 97 02/03/18 08:15 30 Mechanical Ventilator 100 02/03/18 08:00 99.0 69 30 152/69 (96) 97 02/03/18 08:00 Mechanical Ventilator 02/03/18 08:00 100 02/03/18 08:00 71 02/03/18 08:00 30 Mechanical Ventilator 100 02/03/18 07:30 71 30 125/55 (78) 100 02/03/18 07:00 70 30 116/53 (74) 100 02/03/18 07:00 30 Endotracheal Tube 100 02/03/18 06:50 65 31 98 Mechanical Ventilator 100 02/03/18 06:49 65 30 100 02/03/18 06:42 64 30 98 Mechanical Ventilator 100 02/03/18 06:42 100 02/03/18 06:00 74 30 94/58 (70) 100 02/03/18 06:00 30 Endotracheal Tube 100 02/03/18 05:02 66 30 100 02/03/18 05:00 30 Endotracheal Tube 100 02/03/18 05:00 74 30 126/60 (82) 97 02/03/18 04:00 Mechanical Ventilator 02/03/18 04:00 100 02/03/18 04:00 25 Endotracheal Tube 100 02/03/18 04:00 98.2 67 25 151/67 (95) 97 02/03/18 04:00 65 02/03/18 03:07 68 30 100 02/03/18 03:00 70 29 134/48 (76) 97 02/03/18 03:00 29 Endotracheal Tube 100 02/03/18 02:00 29 Endotracheal Tube 100 02/03/18 02:00 70 29 105/48 (67) 97 02/03/18 01:22 65 31 96 Mechanical Ventilator 100 02/03/18 01:12 100 02/03/18 01:12 65 30 97 Mechanical Ventilator 100 02/03/18 01:11 65 30 100 02/03/18 01:00 30 Endotracheal Tube 100 02/03/18 01:00 67 30 108/59 (75) 97 02/03/18 00:00 Mechanical Ventilator 02/03/18 00:00 98.0 67 30 108/56 (73) 97 02/03/18 00:00 30 Endotracheal Tube 100 02/03/18 00:00 66 02/03/18 00:00 100 02/02/18 23:20 68 30 100 02/02/18 23:00 65 29 107/55 (72) 97 02/02/18 23:00 29 Endotracheal Tube 100 02/02/18 22:00 28 Endotracheal Tube 100 02/02/18 22:00 65 25 149/69 (95) 95 02/02/18 21:02 70 30 100 02/02/18 21:00 98.0 67 25 124/60 (81) 95 02/02/18 21:00 30 Endotracheal Tube 100 02/02/18 20:28 99.7 18 20:25 75 131/59 02/02/18 20:00 75 02/02/18 20:00 Mechanical Ventilator 02/02/18 20:00 100 02/02/18 20:00 99.7 75 30 131/59 (83) 97 02/02/18 19:56 30 100.0 100 02/02/18 19:15 64 32 95 Mechanical Ventilator 100 02/02/18 19:05 68 31 96 Mechanical Ventilator 100 02/02/18 19:05 100 02/02/18 19:04 68 31 100 02/02/18 19:00 73 25 127/65 (85) 95 02/02/18 18:00 77 25 132/72 (92) 95 02/02/18 17:15 67 30 100 02/02/18 17:00 73 25 130/65 (86) 95 02/02/18 16:00 Mechanical Ventilator 02/02/18 16:00 85 02/02/18 16:00 100 02/02/18 16:00 98.2 75 24 118/55 (76) 94 02/02/18 15:27 85 30 96 Mechanical Ventilator 80 02/02/18 15:25 65 30 100 02/02/18 15:17 65 30 92 Mechanical Ventilator 80 02/02/18 15:17 80 02/02/18 15:00 73 25 120/65 (83) 95 02/02/18 15:00 Mechanical Ventilator Intake and Output 02/02/18 02/03/18 19:00 07:00 Intake Total 900 ml 1207 ml Output Total 780 ml 495 ml Balance 120 ml 712 ml Free Water 100 ml IV Total 300 ml 447 ml Tube Feeding 600 ml 600 ml Other 60 ml Output Urine Total 780 ml 495 ml # Bowel Movements 2 Laboratory Tests 02/03/18 03:50: White Blood Count 14.7H, Red Blood Count 3.30L, Hemoglobin 10.6L, Hematocrit 31.5L, Mean Corpuscular Volume 96, Mean Corpuscular Hemoglobin 32.0H, Mean Corpuscular Hemoglobin Concent 33.5, Red Cell Distribution Width 13.7, Platelet Count 209, Mean Platelet Volume 7.2, Neutrophils (%) (Auto) 84.2H, Lymphocytes ( %) (Auto) 9.2L, Monocytes (%) (Auto) 5.7, Eosinophils (%) (Auto) 0.6, Basophils (%) (Auto) 0.3, Sodium Level 149H, Potassium Level 3.9, Chloride Level 112H, Carbon Dioxide Level 34H, Anion Gap 3L, Blood Urea Nitrogen 31H, Creatinine 0.8 , Estimat Glomerular Filtration Rate , Glucose Level 89, Calcium Level 8.0L, Total Bilirubin 0.9, Aspartate Amino Transf (AST/SGOT) 13L, Alanine Aminotransferase (ALT/SGPT) 13, Alkaline Phosphatase 71, Total Protein 5.7L, Albumin 1.5L, Globulin 4.2, Albumin/Globulin Ratio 0.4L Height (Feet): 5 Height (Inches): 9.00 Weight (Pounds): 185 General Appearance: no apparent distress Cardiovascular: normal rate Respiratory/Chest: decreased breath sounds Abdomen: distended Objective no change Juan C Mclaughlin MD Feb 03, 2018 14:19
--- NOTE | 2018-02-03 15:34 | General Progress Note ---
Assessment/Plan Status: stable, unchanged Assessment/Plan # Leukocytosis. Secondary to sepsis and pna. is on abx at this time --> WBC improving 16k--> 12k-->13k-->12.2k --> Peripheral has been ordered and reviewed and no blasts are noted --> Medications have been reviewed --> Imaging has been reviewed, reveals apparent worsening of bilateral parenchymal disease --> Blood cultures and urine cultures are reviewed as well --> S/P abx, empiric treatment per id # Anemia of chronic disease due to underlying chronic medical issues, multifactorial. --> Given downtrending hgb, will order a anemia panel - pending --> Cont to monitor for stability --> Hgb goal >7, transfuse prn --> hgb 13-->11.2-->11-->9.5 # Coagulopathy is now off hep gtt --> hepatitis A++, HIV negative --> ptt and mixing study - elevated at 30.8 # Respiratory failure is on a vent. --> Pt unable to wean off of vent --> per pulm # Pneumonia. s/p abx # Urinary tract infection. --> s/p abx # Status post recurrent falls. # Sepsis. # Dehydration. # Afib and now in sr --> as per cards GREATLY APPRECIATE CONSULTATION. Subjective Date patient seen: Feb 03, 2018 ROS Limited/Unobtainable: Yes Hematologic/Lymphatic: Reports: anemia Allergies: Coded Allergies: No Known Allergies (Unverified , 01/24/18) Subjective Pt awake and agitated. Pt remains in ICU, on vent. Pt unable to wean off of vent. On restraints to prevent removal of ETT. Objective Last 24 Hour Vital Signs Date Time Temp Pulse Resp B/P (MAP) Pulse Ox O2 Delivery O2 Flow Rate FiO2 02/03/18 14:48 66 31 100 02/03/18 14:23 30 Mechanical Ventilator 100 02/03/18 13:00 63 30 110/53 (72) 98 02/03/18 12:44 66 31 97 Mechanical Ventilator 100 02/03/18 12:41 63 30 100 02/03/18 12:38 66 30 97 Mechanical Ventilator 100 02/03/18 12:38 100 02/03/18 12:00 Mechanical Ventilator 02/03/18 12:00 100 02/03/18 12:00 62 02/03/18 12:00 98.9 66 30 108/58 (75) 98 02/03/18 11:30 61 30 103/50 (67) 98 02/03/18 11:00 61 30 110/54 (72) 98 02/03/18 11:00 30 Mechanical Ventilator 100 02/03/18 10:46 61 31 100 02/03/18 10:30 71 27 132/90 (104) 97 02/03/18 10:16 86 132/79 02/03/18 10:00 72 28 132/79 (96) 96 02/03/18 10:00 30 Mechanical Ventilator 100 02/03/18 09:30 71 30 130/52 (78) 99 02/03/18 09:00 30 Mechanical Ventilator 100 02/03/18 09:00 67 30 126/60 (82) 97 02/03/18 08:30 30 Mechanical Ventilator 100 02/03/18 08:30 66 30 100 02/03/18 08:30 69 30 143/71 (95) 97 02/03/18 08:15 30 Mechanical Ventilator 100 02/03/18 08:00 99.0 69 30 152/69 (96) 97 02/03/18 08:00 Mechanical Ventilator 02/03/18 08:00 100 02/03/18 08:00 71 02/03/18 08:00 30 Mechanical Ventilator 100 02/03/18 07:30 71 30 125/55 (78) 100 02/03/18 07:00 70 30 116/53 (74) 100 02/03/18 07:00 30 Endotracheal Tube 100 02/03/18 06:50 65 31 98 Mechanical Ventilator 100 02/03/18 06:49 65 30 100 02/03/18 06:42 64 30 98 Mechanical Ventilator 100 02/03/18 06:42 100 02/03/18 06:00 74 30 94/58 (70) 100 02/03/18 06:00 30 Endotracheal Tube 100 02/03/18 05:02 66 30 100 02/03/18 05:00 30 Endotracheal Tube 100 02/03/18 05:00 74 30 126/60 (82) 97 02/03/18 04:00 Mechanical Ventilator 02/03/18 04:00 100 02/03/18 04:00 25 Endotracheal Tube 100 02/03/18 04:00 98.2 67 25 151/67 (95) 97 02/03/18 04:00 65 02/03/18 03:07 68 30 100 02/03/18 03:00 70 29 134/48 (76) 97 02/03/18 03:00 29 Endotracheal Tube 100 02/03/18 02:00 29 Endotracheal Tube 100 02/03/18 02:00 70 29 105/48 (67) 97 02/03/18 01:22 65 31 96 Mechanical Ventilator 100 02/03/18 01:12 100 02/03/18 01:12 65 30 97 Mechanical Ventilator 100 02/03/18 01:11 65 30 100 02/03/18 01:00 30 Endotracheal Tube 100 02/03/18 01:00 67 30 108/59 (75) 97 02/03/18 00:00 Mechanical Ventilator 02/03/18 00:00 98.0 67 30 108/56 (73) 97 02/03/18 00:00 30 Endotracheal Tube 100 02/03/18 00:00 66 02/03/18 00:00 100 02/02/18 23:20 68 30 100 02/02/18 23:00 65 29 107/55 (72) 97 02/02/18 23:00 29 Endotracheal Tube 100 02/02/18 22:00 28 Endotracheal Tube 100 02/02/18 22:00 65 25 149/69 (95) 95 02/02/18 21:02 70 30 100 02/02/18 21:00 98.0 67 25 124/60 (81) 95 02/02/18 21:00 30 Endotracheal Tube 100 02/02/18 20:28 99.7 02/02/18 20:25 75 131/59 02/02/18 20:00 75 02/02/18 20:00 Mechanical Ventilator 02/02/18 20:00 100 02/02/18 20:00 99.7 75 30 131/59 (83) 97 02/02/18 19:56 30 100.0 100 02/02/18 19:15 64 32 95 Mechanical Ventilator 100 02/02/18 19:05 68 31 96 Mechanical Ventilator 100 02/02/18 19:05 100 02/02/18 19:04 68 31 100 02/02/18 19:00 73 25 127/65 (85) 95 02/02/18 18:00 77 25 132/72 (92) 95 02/02/18 17:15 67 30 100 02/02/18 17:00 73 25 130/65 (86) 95 02/02/18 16:00 Mechanical Ventilator 02/02/18 16:00 85 02/02/18 16:00 100 02/02/18 16:00 98.2 75 24 118/55 (76) 94 02/02/18 15:27 85 30 96 Mechanical Ventilator 80 Intake and Output 02/02/18 02/03/18 19:00 07:00 Intake Total 900 ml 1207 ml Output Total 780 ml 495 ml Balance 120 ml 712 ml Free Water 100 ml IV Total 300 ml 447 ml Tube Feeding 600 ml 600 ml Other 60 ml Output Urine Total 780 ml 495 ml # Bowel Movements 2 Laboratory Tests 02/03/18 03:50: White Blood Count 14.7H, Red Blood Count 3.30L, Hemoglobin 10.6L, Hematocrit 31.5L, Mean Corpuscular Volume 96, Mean Corpuscular Hemoglobin 32.0H, Mean Corpuscular Hemoglobin Concent 33.5, Red Cell Distribution Width 13.7, Platelet Count 209, Mean Platelet Volume 7.2, Neutrophils (%) (Auto) 84.2H, Lymphocytes ( %) (Auto) 9.2L, Monocytes (%) (Auto) 5.7, Eosinophils (%) (Auto) 0.6, Basophils (%) (Auto) 0.3, Sodium Level 149H, Potassium Level 3.9, Chloride Level 112H, Carbon Dioxide Level 34H, Anion Gap 3L, Blood Urea Nitrogen 31H, Creatinine 0.8 , Estimat Glomerular Filtration Rate , Glucose Level 89, Calcium Level 8.0L, Total Bilirubin 0.9, Aspartate Amino Transf (AST/SGOT) 13L, Alanine Aminotransferase (ALT/SGPT) 13, Alkaline Phosphatase 71, Total Protein 5.7L, Albumin 1.5L, Globulin 4.2, Albumin/Globulin Ratio 0.4L Height (Feet): 5 Height (Inches): 9.00 Weight (Pounds): 185 Objective Status: awake Condition: critical Lungs: rhonchi ++ VENT Heart: HR/BP stable Abdomen: soft, non-tender, active bowel sounds Extremities: no C/C/E Decubiti: location - sacral Blood Sugars: BS Fabian Sorto MD Feb 03, 2018 15:34
[2018-02-03 16:11] LABS: % IRON SATURATION 17 % (15-50); IRON 24 ug/dL (50-175); TOTAL IRON BINDING CAPACITY 143 ug/dL (250-450)
[2018-02-03 16:29] LABS: FERRITIN 674 NG/ML (8-388)
[2018-02-03] MEDS: Miralax 17gm pkt NG SCH (21:45)
--- NOTE | 2018-02-03 22:37 | Pulmonolgy Critical Care Note ---
Critical Care - Asmt/Plan Assessment/Plan: Pulmonary CCM Progress Note Critical Care - Asmt/Plan Problems: (1) Pulmonary fibrosis (2) Multifocal pneumonia (3) Respiratory disorder with ventilator dependence (4) Lactic acid acidosis (5) Abnormal LFTs (6) OLEG (acute kidney injury) (7) SIRS (systemic inflammatory response syndrome) (8) UTI (urinary tract infection) Assessment/Plan: ASSESSMENT: The patient is a 77-year-old male, current daily smoker with history of hypertension, back pain, lack of health maintenance, presenting with respiratory illness, bilateral pneumonia, lactic acidosis, abnormal kidney function and renal function likely OLEG, and shock liver. 01/26: Prog hypoxemia, inc WOB, tx'd to ICU, intubated 01/27: Gas exchange better, trops downtrending, LA resolved 01/30: Oxygenation stable, stable on vent PROBLEM LIST: 1. Bilateral parenchymal infiltrates, multilobar pneumonia on top of underlying fibrotic lung disease 2. VDRF 3. Metabolic & respiratory acidosis 4. Likely underlying pulmonary fibrosis and COPD 5. NSTEMI, likely demand ischemia 6. Lactic acidosis - RESOLVED 7. Abnormal creatinine, likely acute kidney injury - IMPROVED 8. Abnormal liver function tests - IMPROVED 9. SIRS 10. History of hypertension. 11. PNEUMONIA 12. Constipation TREATMENT PLAN: Continue ventilatory support/settings reviewed, monitor gas exchange PEEP 7, dec FiO2 to keep SaO2 > 90 and <94 AM ABG RTC and PRN DUOnebs Cefepime (D8), Vanco (D7) per ID, F/U Cx's Cautious TF's, monitor residuals ICU sedation: Fentanyl gtt for RASS - 2, Versed 2 mg IV q4 PRN F/U cardiology recs Monitor volumes and renal function, decreased IVF to 25, lasix 20 IV x 1 now Wound care GI recs, bowel regimen Discuss GOC, FC Px: Hep SQ, H2B D/W family, RN, RT and team CCT 45 Critical Care - Objective Vital Signs Noted Status: awake Condition: critical Lungs: rhonchi Heart: HR/BP stable Abdomen: soft, non-tender, active bowel sounds Extremities: no C/C/E Decubiti: location - sacral Blood Sugars: BS controlled Critical Care - Subjective ROS Limited/Unobtainable: Yes ICU Day: 7 Intubation Day: 7 Interval Events: FiO2 inc 70, PEEP 5 Secretions thin clear Edematous UE . LE Condition: critical IV Access: peripheral - x2 FI02: 70 Vent Support Breath Rate: 30 Vent Support Mode: AC Vent Tidal Volume: 600 Sputum Amount: Moderate PEEP: 5.0 PIP: 34 Fluids: D51/2NS @ 50 Drips: Fent off Tube Feeding Amount: 50 Subjective: IRENE ET-Tube: 7.5 ET Position: 23 Labs: Laboratory Tests Test 02/01/18 04:00 White Blood Count 13.1 K/UL (4.8-10.8) H Red Blood Count 3.41 M/UL (4.70-6.10) L Hemoglobin 10.8 G/DL (14.2-18.0) L Hematocrit 32.6 % (42.0-52.0) L Mean Corpuscular Volume 96 FL (80-99) Mean Corpuscular Hemoglobin 31.6 PG (27.0-31.0) H Mean Corpuscular Hemoglobin Concent 33.1 G/DL (32.0-36.0) Red Cell Distribution Width 13.4 % (11.6-14.8) Platelet Count 207 K/UL (150-450) Mean Platelet Volume 8.8 FL (6.5-10.1) Neutrophils (%) (Auto) % (45.0-75.0) Lymphocytes (%) (Auto) % (20.0-45.0) Monocytes (%) (Auto) % (1.0-10.0) Eosinophils (%) (Auto) % (0.0-3.0) Basophils (%) (Auto) % (0.0-2.0) Sodium Level 148 MMOL/L (136-145) H Potassium Level 3.8 MMOL/L (3.5-5.1) Chloride Level 112 MMOL/L (98-107) H Carbon Dioxide Level 31 MMOL/L (21-32) Anion Gap 5 mmol/L (5-15) Blood Urea Nitrogen 36 mg/dL (7-18) H Creatinine 0.8 MG/DL (0.55-1.30) Estimat Glomerular Filtration Rate mL/min (>60) Glucose Level 125 MG/DL (74-106) H Calcium Level 8.1 MG/DL (8.5-10.1) L Phosphorus Level 3.2 MG/DL (2.5-4.9) Magnesium Level 1.8 MG/DL (1.8-2.4) Total Bilirubin 0.7 MG/DL (0.2-1.0) Aspartate Amino Transf (AST/SGOT) 20 U/L (15-37) Alanine Aminotransferase (ALT/SGPT) 16 U/L (12-78) Alkaline Phosphatase 78 U/L (46-116) Total Protein 5.8 G/DL (6.4-8.2) L Albumin 1.4 G/DL (3.4-5.0) L Globulin 4.4 g/dL Albumin/Globulin Ratio 0.3 (1.0-2.7) L Critical Care - Objective Last 24 Hour Vital Signs Date Time Temp Pulse Resp B/P (MAP) Pulse Ox O2 Delivery O2 Flow Rate FiO2 02/03/18 21:46 74 111/61 02/03/18 21:05 117 31 100 02/03/18 20:00 85 02/03/18 19:24 66 30 95 Mechanical Ventilator 85 02/03/18 19:14 85 02/03/18 19:14 66 31 94 Mechanical Ventilator 85 02/03/18 19:13 66 31 85 02/03/18 19:00 30 Endotracheal Tube 85 02/03/18 19:00 70 24 126/61 (82) 95 02/03/18 18:30 70 30 108/54 (72) 95 02/03/18 18:00 68 30 118/62 (80) 94 02/03/18 18:00 30 Mechanical Ventilator 85 02/03/18 17:30 66 30 112/54 (73) 91 02/03/18 17:00 72 24 138/63 (88) 92 02/03/18 17:00 23 Mechanical Ventilator 100 02/03/18 16:35 76 31 85 02/03/18 16:30 70 22 137/37 (70) 95 02/03/18 16:00 99.0 66 32 115/57 (76) 96 02/03/18 16:00 Mechanical Ventilator 02/03/18 16:00 30 Mechanical Ventilator 100 02/03/18 16:00 63 02/03/18 16:00 100 02/03/18 15:30 63 30 125/60 (81) 95 02/03/18 15:00 66 26 125/59 (81) 95 02/03/18 15:00 26 Mechanical Ventilator 100 02/03/18 14:48 66 31 100 18 14:30 64 25 131/58 (82) 95 02/03/18 14:23 30 Mechanical Ventilator 100 02/03/18 14:00 30 Mechanical Ventilator 100 02/03/18 14:00 64 30 109/52 (71) 97 02/03/18 13:30 64 30 112/54 (73) 98 02/03/18 13:00 30 Mechanical Ventilator 100 02/03/18 13:00 63 30 110/53 (72) 98 02/03/18 12:44 66 31 97 Mechanical Ventilator 100 02/03/18 12:41 63 30 100 02/03/18 12:38 66 30 97 Mechanical Ventilator 100 02/03/18 12:38 100 02/03/18 12:30 63 30 111/55 (73) 97 02/03/18 12:00 Mechanical Ventilator 02/03/18 12:00 100 02/03/18 12:00 62 02/03/18 12:00 98.9 66 30 108/58 (75) 98 02/03/18 12:00 0 Mechanical Ventilator 100 02/03/18 11:30 61 30 103/50 (67) 98 02/03/18 11:00 61 30 110/54 (72) 98 02/03/18 11:00 30 Mechanical Ventilator 100 02/03/18 10:46 61 31 100 02/03/18 10:30 71 27 132/90 (104) 97 02/03/18 10:16 86 132/79 02/03/18 10:00 72 28 132/79 (96) 96 02/03/18 10:00 30 Mechanical Ventilator 100 02/03/18 09:30 71 30 130/52 (78) 99 02/03/18 09:00 30 Mechanical Ventilator 100 02/03/18 09:00 67 30 126/60 (82) 97 02/03/18 08:30 30 Mechanical Ventilator 100 02/03/18 08:30 66 30 100 02/03/18 08:30 69 30 143/71 (95) 97 02/03/18 08:15 30 Mechanical Ventilator 100 02/03/18 08:00 99.0 69 30 152/69 (96) 97 02/03/18 08:00 Mechanical Ventilator 02/03/18 08:00 100 02/03/18 08:00 71 02/03/18 08:00 30 Mechanical Ventilator 100 02/03/18 07:30 71 30 125/55 (78) 100 02/03/18 07:00 70 30 116/53 (74) 100 02/03/18 07:00 30 Endotracheal Tube 100 02/03/18 06:50 65 31 98 Mechanical Ventilator 100 02/03/18 06:49 65 30 100 02/03/18 06:42 64 30 98 Mechanical Ventilator 100 02/03/18 06:42 100 02/03/18 06:00 74 30 94/58 (70) 100 02/03/18 06:00 30 Endotracheal Tube 100 02/03/18 05:02 66 30 100 02/03/18 05:00 30 Endotracheal Tube 100 02/03/18 05:00 74 30 126/60 (82) 97 02/03/18 04:00 Mechanical Ventilator 02/03/18 04:00 100 02/03/18 04:00 25 Endotracheal Tube 100 02/03/18 04:00 98.2 67 25 151/67 (95) 97 02/03/18 04:00 65 02/03/18 03:07 68 30 100 02/03/18 03:00 70 29 134/48 (76) 97 02/03/18 03:00 29 Endotracheal Tube 100 02/03/18 02:00 29 Endotracheal Tube 100 02/03/18 02:00 70 29 105/48 (67) 97 02/03/18 01:22 65 31 96 Mechanical Ventilator 100 02/03/18 01:12 100 02/03/18 01:12 65 30 97 Mechanical Ventilator 100 02/03/18 01:11 65 30 100 02/03/18 01:00 30 Endotracheal Tube 100 02/03/18 01:00 67 30 108/59 (75) 97 02/03/18 00:00 Mechanical Ventilator 02/03/18 00:00 98.0 67 30 108/56 (73) 97 02/03/18 00:00 30 Endotracheal Tube 100 02/03/18 00:00 66 02/03/18 00:00 100 02/02/18 23:20 68 30 100 02/02/18 23:00 65 29 107/55 (72) 97 02/02/18 23:00 29 Endotracheal Tube 100 Critical Care - Subjective ROS Limited/Unobtainable: Yes Condition: stable FI02: 100 Vent Support Breath Rate: 30 Vent Support Mode: AC Vent Tidal Volume: 600 Sputum Amount: Moderate PEEP: 7.0 PIP: 41 Tube Feeding Amount: 50 I&O: Intake and Output 02/02/18 02/03/18 19:00 07:00 Intake Total 900 ml 1207 ml Output Total 780 ml 495 ml Balance 120 ml 712 ml Free Water 100 ml IV Total 300 ml 447 ml Tube Feeding 600 ml 600 ml Other 60 ml Output Urine Total 780 ml 495 ml # Bowel Movements 2 ET-Tube: 7.5 ET Position: 23 Tyrel Gonzalez MD Feb 03, 2018 22:37
[2018-02-04] VITALS (41 sets, daily range): BP systolic 90–147; BP diastolic 30–78
[2018-02-04] MEDS: Albuterol/Ipratropium 3ml neb HHN SCH ×4 (01:15→19:16)
[2018-02-04] MEDS: D5 1/2NS 1,000 ML IV SCH (03:01)
[2018-02-04 05:04] LABS: HEMATOCRIT 33.4 % (42.0-52.0); MEAN CORPUSCULAR VOLUME 95 FL (80-99); PLATELET COUNT 236 K/UL (150-450); RED CELL DISTRIBUTION WIDTH 13.9 % (11.6-14.8); WHITE BLOOD COUNT 16.3 K/UL (4.8-10.8)
[2018-02-04 05:27] LABS: ALANINE AMINOTRANSFERASE 19 U/L (12-78); ALBUMIN 1.5 G/DL (3.4-5.0); ALBUMIN/GLOBULIN RATIO 0.3 (1.0-2.7); ALKALINE PHOSPHATASE 71 U/L (46-116); ANION GAP 1 mmol/L (5-15); ASPARTATE AMINO TRANSFERASE 27 U/L (15-37); BLOOD UREA NITROGEN 33 mg/dL (7-18); CALCIUM 7.9 MG/DL (8.5-10.1); CARBON DIOXIDE 36 MMOL/L (21-32); CHLORIDE 110 MMOL/L (98-107); CREATININE 0.8 MG/DL (0.55-1.30); PHOSPHORUS 3.9 MG/DL (2.5-4.9); POTASSIUM 3.7 MMOL/L (3.5-5.1); SODIUM 147 MMOL/L (136-145)
[2018-02-04] MEDS: Cefepime HCl 1 GM in D5W 55 ML IVPB SCH ×2 (09:59→21:47)
[2018-02-04] MEDS: Metoprolol Tartrate 50mg tab ORAL SCH ×2 (09:59→20:52)
[2018-02-04] MEDS: Heparin 5000 units/ml inj SUBQ SCH ×2 (10:00→20:53)
--- NOTE | 2018-02-04 10:35 | General Surgery Progress Note ---
General Surgery-Progress Note Subjective Additional Comments still in ICU intubated on vents support Objective Last 24 Hour Vital Signs Date Time Temp Pulse Resp B/P (MAP) Pulse Ox O2 Delivery O2 Flow Rate FiO2 02/04/18 10:00 74 30 127/55 (79) 90 02/04/18 09:59 74 123/55 02/04/18 09:30 73 30 125/57 (79) 91 02/04/18 09:15 66 30 80 02/04/18 09:00 68 30 103/48 (66) 96 02/04/18 08:30 68 30 100/48 (65) 98 02/04/18 08:00 98.6 77 30 115/47 (69) 98 02/04/18 08:00 Mechanical Ventilator 02/04/18 08:00 85 02/04/18 08:00 76 02/04/18 07:36 67 30 97 Mechanical Ventilator 85 02/04/18 07:30 67 30 102/51 (68) 97 02/04/18 07:27 85 02/04/18 07:26 67 30 97 Mechanical Ventilator 85 02/04/18 07:15 67 30 85 02/04/18 07:00 98.8 66 22 91/45 (60) 96 02/04/18 07:00 12 Endotracheal Tube 85 02/04/18 06:00 71 22 101/47 (65) 96 02/04/18 06:00 22 Endotracheal Tube 85 02/04/18 05:10 71 30 Mechanical Ventilator 85 02/04/18 05:10 71 30 85 02/04/18 05:00 71 16 96/57 (70) 96 02/04/18 05:00 16 Endotracheal Tube 85 02/04/18 04:08 98.6 02/04/18 04:00 60 02/04/18 04:00 98.6 69 24 121/51 (74) 93 02/04/18 04:00 24 Endotracheal Tube 85 02/04/18 04:00 85 02/04/18 04:00 Mechanical Ventilator 02/04/18 03:38 30 Endotracheal Tube 85 02/04/18 03:05 72 31 85 02/04/18 03:00 71 22 138/65 (89) 96 02/04/18 03:00 24 Endotracheal Tube 85 02/04/18 02:00 70 28 135/60 (85) 96 02/04/18 02:00 28 Endotracheal Tube 85 02/04/18 01:25 68 30 96 Mechanical Ventilator 85 02/04/18 01:15 65 30 96 Mechanical Ventilator 85 02/04/18 01:15 65 30 85 02/04/18 01:15 85 02/04/18 01:00 66 28 117/56 (76) 96 02/04/18 01:00 28 Endotracheal Tube 85 02/04/18 00:00 85 02/04/18 00:00 65 02/04/18 00:00 30 Endotracheal Tube 85 02/04/18 00:00 Mechanical Ventilator 02/04/18 00:00 98.6 77 30 112/55 (74) 91 02/03/18 23:05 65 30 85 02/03/18 23:00 30 Endotracheal Tube 85 02/03/18 23:00 66 30 117/51 (73) 96 02/03/18 22:00 30 Endotracheal Tube 85 02/03/18 22:00 66 30 122/52 (75) 96 02/03/18 21:46 74 111/61 02/03/18 21:05 117 31 100 02/03/18 21:00 74 30 157/69 (98) 93 02/03/18 20:00 70 02/03/18 20:00 99.0 77 26 149/61 (90) 91 02/03/18 20:00 85 02/03/18 20:00 Mechanical Ventilator 02/03/18 20:00 26 Endotracheal Tube 85 02/03/18 19:24 66 30 95 Mechanical Ventilator 85 02/03/18 19:14 85 02/03/18 19:14 66 31 94 Mechanical Ventilator 85 02/03/18 19:13 66 31 85 02/03/18 19:00 30 Endotracheal Tube 85 02/03/18 19:00 70 24 126/61 (82) 95 02/03/18 18:30 70 30 108/54 (72) 95 18 18:00 68 30 118/62 (80) 94 18 18:00 30 Mechanical Ventilator 85 18 17:30 66 30 112/54 (73) 91 02/03/18 17:00 72 24 138/63 (88) 92 02/03/18 17:00 23 Mechanical Ventilator 100 02/03/18 16:35 76 31 85 02/03/18 16:30 70 22 137/37 (70) 95 02/03/18 16:00 99.0 66 32 115/57 (76) 96 02/03/18 16:00 Mechanical Ventilator 02/03/18 16:00 30 Mechanical Ventilator 100 02/03/18 16:00 63 02/03/18 16:00 100 02/03/18 15:30 63 30 125/60 (81) 95 02/03/18 15:00 66 26 125/59 (81) 95 02/03/18 15:00 26 Mechanical Ventilator 100 02/03/18 14:48 66 31 100 02/03/18 14:30 64 25 131/58 (82) 95 02/03/18 14:23 30 Mechanical Ventilator 100 02/03/18 14:00 30 Mechanical Ventilator 100 02/03/18 14:00 64 30 109/52 (71) 97 02/03/18 13:30 64 30 112/54 (73) 98 02/03/18 13:00 30 Mechanical Ventilator 100 02/03/18 13:00 63 30 110/53 (72) 98 02/03/18 12:44 66 31 97 Mechanical Ventilator 100 02/03/18 12:41 63 30 100 02/03/18 12:38 66 30 97 Mechanical Ventilator 100 02/03/18 12:38 100 02/03/18 12:30 63 30 111/55 (73) 97 02/03/18 12:00 Mechanical Ventilator 02/03/18 12:00 100 02/03/18 12:00 62 02/03/18 12:00 98.9 66 30 108/58 (75) 98 02/03/18 12:00 0 Mechanical Ventilator 100 02/03/18 11:30 61 30 103/50 (67) 98 02/03/18 11:00 61 30 110/54 (72) 98 02/03/18 11:00 30 Mechanical Ventilator 100 02/03/18 10:46 61 31 100 I&O Intake and Output 02/03/18 02/04/18 18:59 06:59 Intake Total 1098.75 ml 1171.93 ml Output Total 645 ml 445 ml Balance 453.75 ml 726.93 ml Free Water 100 ml IV Total 438.75 ml 411.93 ml Tube Feeding 600 ml 600 ml Other 60 ml 60 ml Output Urine Total 645 ml 445 ml Dressing: other Wound: other Drains: other Cardiovascular: RSR Respiratory: decreased breath sounds Abdomen: soft, non-tender, present bowel sounds Extremities: other Laboratory Tests Test 02/04/18 04:20 White Blood Count 16.3 K/UL (4.8-10.8) H Red Blood Count 3.50 M/UL (4.70-6.10) L Hemoglobin 11.0 G/DL (14.2-18.0) L Hematocrit 33.4 % (42.0-52.0) L Mean Corpuscular Volume 95 FL (80-99) Mean Corpuscular Hemoglobin 31.5 PG (27.0-31.0) H Mean Corpuscular Hemoglobin Concent 33.0 G/DL (32.0-36.0) Red Cell Distribution Width 13.9 % (11.6-14.8) Platelet Count 236 K/UL (150-450) Mean Platelet Volume 7.7 FL (6.5-10.1) Neutrophils (%) (Auto) % (45.0-75.0) Lymphocytes (%) (Auto) % (20.0-45.0) Monocytes (%) (Auto) % (1.0-10.0) Eosinophils (%) (Auto) % (0.0-3.0) Basophils (%) (Auto) % (0.0-2.0) Neutrophils % (Manual) Pending Lymphocytes % (Manual) Pending Platelet Estimate Pending Platelet Morphology Pending Sodium Level 147 MMOL/L (136-145) H Potassium Level 3.7 MMOL/L (3.5-5.1) Chloride Level 110 MMOL/L (98-107) H Carbon Dioxide Level 36 MMOL/L (21-32) H Anion Gap 1 mmol/L (5-15) L Blood Urea Nitrogen 33 mg/dL (7-18) H Creatinine 0.8 MG/DL (0.55-1.30) Estimat Glomerular Filtration Rate mL/min (>60) Glucose Level 99 MG/DL (74-106) Calcium Level 7.9 MG/DL (8.5-10.1) L Phosphorus Level 3.9 MG/DL (2.5-4.9) Magnesium Level 2.0 MG/DL (1.8-2.4) Total Bilirubin 1.0 MG/DL (0.2-1.0) Aspartate Amino Transf (AST/SGOT) 27 U/L (15-37) Alanine Aminotransferase (ALT/SGPT) 19 U/L (12-78) Alkaline Phosphatase 71 U/L (46-116) C-Reactive Protein, Quantitative 18.2 mg/dL (0.00-0.90) H Pro-B-Type Natriuretic Peptide 2957 pg/mL (0-125) H Total Protein 6.0 G/DL (6.4-8.2) L Albumin 1.5 G/DL (3.4-5.0) L Globulin 4.5 g/dL Albumin/Globulin Ratio 0.3 (1.0-2.7) L Plan Problems: (1) Decubitus ulcer of sacral region, stage 3 Assessment & Plan: Stage III full thickness pressure injury sacrum present on admission (L)2cm x (W)1.8cm ,wound bed with 80% yellow slough ,20% granular Borders slightly macerated. Non-blanching erythema without elevation in skin temp, or induration periwound. NO odor noted. Abrasions noted to R elbow (L)3.2cm x (W)1.9cm.Wound with Biofilm ,erythema al; lynn borders .Periwound clean and intact. Abrasion noted to L elbow(L)5.5cm x (W)1.6cm ,biofim noted to wound bed .erythema along borders .Periwound without erythema or elevation in skin temp. Abrasion lateral L knee with dry scab. Abrasion medial R knee with dry scab. Bilat heels boggy with non-blanching erythema. Non-tender when palpated. Pt repositioned with pillow on his side but restless and repositioned self on back. given critical condition will continue with maximal efforts to reduce worsening wounds as in this condition may deteriorate Tx.Plan: Cleanse R and L elbows with Saline.Apply Silvasorb Gel to both elbows .Cover with Optifoam drsg .Change every 3 Days and prn. Cleanse Sacral Pressure injury with Saline.Apply Therahoney .Cavilon periwound.Cover with Optifoam drsg Daily and prn. Apply Cavilon to Both heels.Cover with Optifoam drsg .Change Every 7 days and prn. Cavilon to abrasions R and L lower ext.Cover with Optifoam change every 7 days and prn. Off-load heels with pillow. Reposition at least every 2 hours or as tolerated. Surface support mattress. (2) Abnormal LFTs Assessment & Plan: US reviewed - absent GB dilated ducts CT reviewed - dilated duct without notable obstruction LFT's noted and elevated t bili trending down no jaundice AST/ALT nml Alk phos nml leukocytosis trending down -no acute surgical intervention necessary -t bili and d bili correlate. unlikely obstructive at this time. especially with history of cholecystectomy prior -trend labs thank you (3) Severe sepsis Assessment & Plan: not weaning off vent easy. will likely require long term care pharmacist vent support consider trach soon Myke Merino Feb 04, 2018 10:35
--- NOTE | 2018-02-04 12:52 | Nephrology Progress Note ---
Assessment/Plan Problem List: (1) OLEG (acute kidney injury) (2) Abnormal LFTs (3) Lactic acid acidosis (4) UTI (urinary tract infection) (5) Respiratory disorder with ventilator dependence (6) Pulmonary fibrosis Assessment Acute renal failure, high K Pneumonia / Sepsis / Hypoxia / UTI HypoAlbuminemia / Proteinuria Acute respiratory failure Pulmonary fibrosis Lactic acidosis Plan Kayexelate GT given 01/30 Adjust jackson- Discussed with RN Hydrate- Pulm support / on vent IV antibiotics Watch electrolytes Gastric support Per orders Subjective ROS Limited/Unobtainable: Yes Objective Objective Last 24 Hour Vital Signs Date Time Temp Pulse Resp B/P (MAP) Pulse Ox O2 Delivery O2 Flow Rate FiO2 02/04/18 12:30 61 30 114/59 (77) 94 02/04/18 12:00 85 02/04/18 12:00 Mechanical Ventilator 02/04/18 12:00 98.7 62 30 107/51 (69) 95 02/04/18 11:30 63 30 102/52 (69) 95 02/04/18 11:00 65 33 80 02/04/18 11:00 30 Mechanical Ventilator 80 02/04/18 11:00 60 30 107/30 (55) 93 02/04/18 10:30 66 30 127/61 (83) 87 02/04/18 10:00 30 Mechanical Ventilator 80 02/04/18 10:00 74 30 127/55 (79) 90 02/04/18 09:59 74 123/55 02/04/18 09:30 73 30 125/57 (79) 91 02/04/18 09:15 66 30 80 02/04/18 09:00 68 30 103/48 (66) 96 02/04/18 09:00 30 Mechanical Ventilator 85 02/04/18 08:30 68 30 100/48 (65) 98 02/04/18 08:00 98.6 77 30 115/47 (69) 98 02/04/18 08:00 30 Mechanical Ventilator 85 02/04/18 08:00 Mechanical Ventilator 02/04/18 08:00 85 02/04/18 08:00 76 02/04/18 07:36 67 30 97 Mechanical Ventilator 85 02/04/18 07:30 67 30 102/51 (68) 97 02/04/18 07:27 85 02/04/18 07:26 67 30 97 Mechanical Ventilator 85 02/04/18 07:15 67 30 85 02/04/18 07:00 98.8 66 22 91/45 (60) 96 02/04/18 07:00 12 Endotracheal Tube 85 02/04/18 06:00 71 22 101/47 (65) 96 02/04/18 06:00 22 Endotracheal Tube 85 02/04/18 05:10 71 30 Mechanical Ventilator 85 02/04/18 05:10 71 30 85 02/04/18 05:00 71 16 96/57 (70) 96 02/04/18 05:00 16 Endotracheal Tube 85 02/04/18 04:08 98.6 02/04/18 04:00 60 02/04/18 04:00 98.6 69 24 121/51 (74) 93 02/04/18 04:00 24 Endotracheal Tube 85 02/04/18 04:00 85 02/04/18 04:00 Mechanical Ventilator 02/04/18 03:38 30 Endotracheal Tube 85 02/04/18 03:05 72 31 85 02/04/18 03:00 71 22 138/65 (89) 96 02/04/18 03:00 24 Endotracheal Tube 85 02/04/18 02:00 70 28 135/60 (85) 96 02/04/18 02:00 28 Endotracheal Tube 85 02/04/18 01:25 68 30 96 Mechanical Ventilator 85 02/04/18 01:15 65 30 96 Mechanical Ventilator 85 02/04/18 01:15 65 30 85 02/04/18 01:15 85 02/04/18 01:00 66 28 117/56 (76) 96 02/04/18 01:00 28 Endotracheal Tube 85 02/04/18 00:00 85 02/04/18 00:00 65 02/04/18 00:00 30 Endotracheal Tube 85 02/04/18 00:00 Mechanical Ventilator 02/04/18 00:00 98.6 77 30 112/55 (74) 91 02/03/18 23:05 65 30 85 02/03/18 23:00 30 Endotracheal Tube 85 02/03/18 23:00 66 30 117/51 (73) 96 02/03/18 22:00 30 Endotracheal Tube 85 02/03/18 22:00 66 30 122/52 (75) 96 02/03/18 21:46 74 111/61 02/03/18 21:05 117 31 100 02/03/18 21:00 74 30 157/69 (98) 93 02/03/18 20:00 70 02/03/18 20:00 99.0 77 26 149/61 (90) 91 02/03/18 20:00 85 02/03/18 20:00 Mechanical Ventilator 02/03/18 20:00 26 Endotracheal Tube 85 02/03/18 19:24 66 30 95 Mechanical Ventilator 85 02/03/18 19:14 85 02/03/18 19:14 66 31 94 Mechanical Ventilator 85 02/03/18 19:13 66 31 85 02/03/18 19:00 30 Endotracheal Tube 85 02/03/18 19:00 70 24 126/61 (82) 95 02/03/18 18:30 70 30 108/54 (72) 95 02/03/18 18:00 68 30 118/62 (80) 94 02/03/18 18:00 30 Mechanical Ventilator 85 02/03/18 17:30 66 30 112/54 (73) 91 02/03/18 17:00 72 24 138/63 (88) 92 02/03/18 17:00 23 Mechanical Ventilator 100 02/03/18 16:35 76 31 85 02/03/18 16:30 70 22 137/37 (70) 95 02/03/18 16:00 99.0 66 32 115/57 (76) 96 02/03/18 16:00 Mechanical Ventilator 02/03/18 16:00 30 Mechanical Ventilator 100 02/03/18 16:00 63 02/03/18 16:00 100 02/03/18 15:30 63 30 125/60 (81) 95 02/03/18 15:00 66 26 125/59 (81) 95 02/03/18 15:00 26 Mechanical Ventilator 100 02/03/18 14:48 66 31 100 02/03/18 14:30 64 25 131/58 (82) 95 02/03/18 14:23 30 Mechanical Ventilator 100 02/03/18 14:00 30 Mechanical Ventilator 100 02/03/18 14:00 64 30 109/52 (71) 97 02/03/18 13:30 64 30 112/54 (73) 98 02/03/18 13:00 30 Mechanical Ventilator 100 02/03/18 13:00 63 30 110/53 (72) 98 Intake and Output 12/14/18 12/15/18 18:59 06:59 Intake Total 1098.75 ml 1171.93 ml Output Total 645 ml 445 ml Balance 453.75 ml 726.93 ml Free Water 100 ml IV Total 438.75 ml 411.93 ml Tube Feeding 600 ml 600 ml Other 60 ml 60 ml Output Urine Total 645 ml 445 ml Laboratory Tests 02/04/18 04:20: White Blood Count 16.3H, Red Blood Count 3.50L, Hemoglobin 11.0L, Hematocrit 33.4L, Mean Corpuscular Volume 95, Mean Corpuscular Hemoglobin 31.5H, Mean Corpuscular Hemoglobin Concent 33.0, Red Cell Distribution Width 13.9, Platelet Count 236, Mean Platelet Volume 7.7, Neutrophils (%) (Auto) , Lymphocytes (%) ( Auto) , Monocytes (%) (Auto) , Eosinophils (%) (Auto) , Basophils (%) (Auto) , Differential Total Cells Counted 100, Neutrophils % (Manual) 94H, Lymphocytes % (Manual) 4L, Monocytes % (Manual) 2, Eosinophils % (Manual) 0, Basophils % ( Manual) 0, Band Neutrophils 0, Platelet Estimate Adequate, Platelet Morphology Normal, Red Blood Cell Morphology Normal, Sodium Level 147H, Potassium Level 3.7 , Chloride Level 110H, Carbon Dioxide Level 36H, Anion Gap 1L, Blood Urea Nitrogen 33H, Creatinine 0.8, Estimat Glomerular Filtration Rate , Glucose Level 99, Calcium Level 7.9L, Phosphorus Level 3.9, Magnesium Level 2.0, Total Bilirubin 1.0, Aspartate Amino Transf (AST/SGOT) 27, Alanine Aminotransferase ( ALT/SGPT) 19, Alkaline Phosphatase 71, C-Reactive Protein, Quantitative 18.2H, Pro-B-Type Natriuretic Peptide 2957H, Total Protein 6.0L, Albumin 1.5L, Globulin 4.5, Albumin/Globulin Ratio 0.3L Height (Feet): 5 Height (Inches): 9.00 Weight (Pounds): 187 EENT: other - vented Cardiovascular: bradycardia Respiratory/Chest: decreased breath sounds Abdomen: distended Objective no change Juan C Mclaughlin MD Feb 04, 2018 12:52
--- NOTE | 2018-02-04 15:07 | General Progress Note ---
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 (2) Renal insufficiency ICD Codes: N28.9 - Disorder of kidney and ureter, unspecified; R65.20 - Severe sepsis without septic shock SNOMED: 260085015, 268440446 (3) UTI (urinary tract infection) ICD Codes: N39.0 - Urinary tract infection, site not specified SNOMED: 68755613, 382831454 Qualifiers: Qualified Codes: N39.0 - Urinary tract infection, site not specified (4) Pneumonia ICD Codes: J18.9 - Pneumonia, unspecified organism SNOMED: 285149711 Qualifiers: Qualified Codes: J18.1 - Lobar pneumonia, unspecified organism (5) Severe sepsis ICD Codes: A41.9 - Sepsis, unspecified organism; R65.20 - Severe sepsis without septic shock SNOMED: 29438311 (6) Hypoxia ICD Codes: R09.02 - Hypoxemia; R65.20 - Severe sepsis without septic shock SNOMED: 648321738, 570681116 (7) Pulmonary fibrosis ICD Codes: J84.10 - Pulmonary fibrosis, unspecified SNOMED: 37147407 (8) Lactic acid acidosis ICD Codes: E87.2 - Acidosis SNOMED: 20295063 (9) OLEG (acute kidney injury) ICD Codes: N17.9 - Acute kidney failure, unspecified SNOMED: 42076061 (10) Abnormal LFTs ICD Codes: R94.5 - Abnormal results of liver function studies SNOMED: 442259766 Assessment/Plan severe pulmonary firbrosis resp failure pna sepsis afebrile worsening leukocytosis abx per id not hypoxic Subjective ROS Limited/Unobtainable: Yes Allergies: Coded Allergies: No Known Allergies (Unverified , 01/24/18) Objective Last 24 Hour Vital Signs Date Time Temp Pulse Resp B/P (MAP) Pulse Ox O2 Delivery O2 Flow Rate FiO2 02/04/18 15:00 63 30 110/51 (70) 95 02/04/18 14:50 66 30 75 02/04/18 14:00 30 Mechanical Ventilator 85 02/04/18 14:00 62 30 105/52 (69) 95 02/04/18 13:30 65 30 119/51 (73) 95 02/04/18 13:18 68 30 95 Mechanical Ventilator 85 02/04/18 13:09 85 02/04/18 13:08 62 30 96 Mechanical Ventilator 85 02/04/18 13:06 62 30 80 02/04/18 13:00 30 Mechanical Ventilator 85 02/04/18 13:00 65 30 111/54 (73) 95 02/04/18 12:30 61 30 114/59 (77) 94 02/04/18 12:00 85 02/04/18 12:00 59 02/04/18 12:00 Mechanical Ventilator 02/04/18 12:00 30 Mechanical Ventilator 85 02/04/18 12:00 98.7 62 30 107/51 (69) 95 02/04/18 11:30 63 30 102/52 (69) 95 02/04/18 11:00 65 33 80 02/04/18 11:00 30 Mechanical Ventilator 80 02/04/18 11:00 60 30 107/30 (55) 93 02/04/18 10:30 66 30 127/61 (83) 87 02/04/18 10:00 30 Mechanical Ventilator 80 02/04/18 10:00 74 30 127/55 (79) 90 02/04/18 09:59 74 123/55 02/04/18 09:30 73 30 125/57 (79) 91 02/04/18 09:15 66 30 80 02/04/18 09:00 68 30 103/48 (66) 96 02/04/18 09:00 30 Mechanical Ventilator 85 02/04/18 08:30 68 30 100/48 (65) 98 02/04/18 08:00 98.6 77 30 115/47 (69) 98 02/04/18 08:00 30 Mechanical Ventilator 85 02/04/18 08:00 Mechanical Ventilator 02/04/18 08:00 85 02/04/18 08:00 76 02/04/18 07:36 67 30 97 Mechanical Ventilator 85 02/04/18 07:30 67 30 102/51 (68) 97 18 07:27 85 02/04/18 07:26 67 30 97 Mechanical Ventilator 85 02/04/18 07:15 67 30 85 02/04/18 07:00 98.8 66 22 91/45 (60) 96 02/04/18 07:00 12 Endotracheal Tube 85 02/04/18 06:00 71 22 101/47 (65) 96 02/04/18 06:00 22 Endotracheal Tube 85 02/04/18 05:10 71 30 Mechanical Ventilator 85 02/04/18 05:10 71 30 85 02/04/18 05:00 71 16 96/57 (70) 96 02/04/18 05:00 16 Endotracheal Tube 85 02/04/18 04:08 98.6 02/04/18 04:00 60 02/04/18 04:00 98.6 69 24 121/51 (74) 93 02/04/18 04:00 24 Endotracheal Tube 85 02/04/18 04:00 85 02/04/18 04:00 Mechanical Ventilator 02/04/18 03:38 30 Endotracheal Tube 85 02/04/18 03:05 72 31 85 02/04/18 03:00 71 22 138/65 (89) 96 02/04/18 03:00 24 Endotracheal Tube 85 02/04/18 02:00 70 28 135/60 (85) 96 02/04/18 02:00 28 Endotracheal Tube 85 02/04/18 01:25 68 30 96 Mechanical Ventilator 85 02/04/18 01:15 65 30 96 Mechanical Ventilator 85 02/04/18 01:15 65 30 85 02/04/18 01:15 85 02/04/18 01:00 66 28 117/56 (76) 96 02/04/18 01:00 28 Endotracheal Tube 85 02/04/18 00:00 85 02/04/18 00:00 65 02/04/18 00:00 30 Endotracheal Tube 85 02/04/18 00:00 Mechanical Ventilator 02/04/18 00:00 98.6 77 30 112/55 (74) 91 02/03/18 23:05 65 30 85 02/03/18 23:00 30 Endotracheal Tube 85 02/03/18 23:00 66 30 117/51 (73) 96 02/03/18 22:00 30 Endotracheal Tube 85 02/03/18 22:00 66 30 122/52 (75) 96 02/03/18 21:46 74 111/61 02/03/18 21:05 117 31 100 02/03/18 21:00 74 30 157/69 (98) 93 02/03/18 20:00 70 02/03/18 20:00 99.0 77 26 149/61 (90) 91 02/03/18 20:00 85 02/03/18 20:00 Mechanical Ventilator 02/03/18 20:00 26 Endotracheal Tube 85 02/03/18 19:24 66 30 95 Mechanical Ventilator 85 02/03/18 19:14 85 02/03/18 19:14 66 31 94 Mechanical Ventilator 85 02/03/18 19:13 66 31 85 02/03/18 19:00 30 Endotracheal Tube 85 02/03/18 19:00 70 24 126/61 (82) 95 02/03/18 18:30 70 30 108/54 (72) 95 02/03/18 18:00 68 30 118/62 (80) 94 02/03/18 18:00 30 Mechanical Ventilator 85 02/03/18 17:30 66 30 112/54 (73) 91 02/03/18 17:00 72 24 138/63 (88) 92 02/03/18 17:00 23 Mechanical Ventilator 100 02/03/18 16:35 76 31 85 02/03/18 16:30 70 22 137/37 (70) 95 02/03/18 16:00 99.0 66 32 115/57 (76) 96 02/03/18 16:00 Mechanical Ventilator 02/03/18 16:00 30 Mechanical Ventilator 100 02/03/18 16:00 63 18 16:00 100 02/03/18 15:30 63 30 125/60 (81) 95 Intake and Output 02/03/18 02/04/18 19:00 07:00 Intake Total 1099.75 ml 1172.93 ml Output Total 650 ml 445 ml Balance 449.75 ml 727.93 ml Free Water 100 ml IV Total 439.75 ml 412.93 ml Tube Feeding 600 ml 600 ml Other 60 ml 60 ml Output Urine Total 650 ml 445 ml Laboratory Tests 02/04/18 04:20: White Blood Count 16.3H, Red Blood Count 3.50L, Hemoglobin 11.0L, Hematocrit 33.4L, Mean Corpuscular Volume 95, Mean Corpuscular Hemoglobin 31.5H, Mean Corpuscular Hemoglobin Concent 33.0, Red Cell Distribution Width 13.9, Platelet Count 236, Mean Platelet Volume 7.7, Neutrophils (%) (Auto) , Lymphocytes (%) ( Auto) , Monocytes (%) (Auto) , Eosinophils (%) (Auto) , Basophils (%) (Auto) , Differential Total Cells Counted 100, Neutrophils % (Manual) 94H, Lymphocytes % (Manual) 4L, Monocytes % (Manual) 2, Eosinophils % (Manual) 0, Basophils % ( Manual) 0, Band Neutrophils 0, Platelet Estimate Adequate, Platelet Morphology Normal, Red Blood Cell Morphology Normal, Sodium Level 147H, Potassium Level 3.7 , Chloride Level 110H, Carbon Dioxide Level 36H, Anion Gap 1L, Blood Urea Nitrogen 33H, Creatinine 0.8, Estimat Glomerular Filtration Rate , Glucose Level 99, Calcium Level 7.9L, Phosphorus Level 3.9, Magnesium Level 2.0, Total Bilirubin 1.0, Aspartate Amino Transf (AST/SGOT) 27, Alanine Aminotransferase ( ALT/SGPT) 19, Alkaline Phosphatase 71, C-Reactive Protein, Quantitative 18.2H, Pro-B-Type Natriuretic Peptide 2957H, Total Protein 6.0L, Albumin 1.5L, Globulin 4.5, Albumin/Globulin Ratio 0.3L Height (Feet): 5 Height (Inches): 9.00 Weight (Pounds): 187 Respiratory/Chest: lungs clear Abdomen: soft Edwin Corrigan MD Feb 04, 2018 15:07
--- NOTE | 2018-02-04 17:30 | General Progress Note ---
Assessment/Plan Assessment/Plan Assessment/Plan Problems: (1) Constipation ICD Codes: K59.00 - Constipation, unspecified SNOMED: 84737305 (2) Gastroparesis ICD Codes: K31.84 - Gastroparesis SNOMED: 462726544 (3) Abnormal LFTs ICD Codes: R94.5 - Abnormal results of liver function studies SNOMED: 106595124 Status: unchanged Assessment/Plan hepatitis panel reviewed >> active Hep A infection anemia work up reviewed >> folate and iron deficiency NGT present recent KUB >> no acute findings ET tube on mech vent Dysphagia NGTFs per RD to goal, PEG if necessary low dose erythromycin if needed for GI motility OB stool r/o GI bleed uncollected monitor H&H, prn transfusions constipation - bowel regime >> lactulose TID >> had BM yesterday ppi folate fu labs Subjective Allergies: Coded Allergies: No Known Allergies (Unverified , 01/24/18) Subjective seen in ICU non communicative intubated confused restrained d/w director of staff development Tolerating TF Objective Last 24 Hour Vital Signs Date Time Temp Pulse Resp B/P (MAP) Pulse Ox O2 Delivery O2 Flow Rate FiO2 02/04/18 17:00 64 30 105/57 (73) 94 02/04/18 16:30 66 30 107/53 (71) 95 02/04/18 16:00 99.2 66 30 108/55 (72) 95 02/04/18 16:00 75 02/04/18 16:00 66 02/04/18 15:30 67 30 107/48 (67) 94 02/04/18 15:00 63 30 110/51 (70) 95 02/04/18 14:50 66 30 75 02/04/18 14:30 67 30 102/52 (69) 97 02/04/18 14:00 30 Mechanical Ventilator 85 02/04/18 14:00 62 30 105/52 (69) 95 02/04/18 13:30 65 30 119/51 (73) 95 02/04/18 13:18 68 30 95 Mechanical Ventilator 85 02/04/18 13:09 85 02/04/18 13:08 62 30 96 Mechanical Ventilator 85 02/04/18 13:06 62 30 80 02/04/18 13:00 30 Mechanical Ventilator 85 02/04/18 13:00 65 30 111/54 (73) 95 02/04/18 12:30 61 30 114/59 (77) 94 02/04/18 12:00 85 02/04/18 12:00 59 02/04/18 12:00 Mechanical Ventilator 02/04/18 12:00 30 Mechanical Ventilator 85 02/04/18 12:00 98.7 62 30 107/51 (69) 95 02/04/18 11:30 63 30 102/52 (69) 95 02/04/18 11:00 65 33 80 02/04/18 11:00 30 Mechanical Ventilator 80 02/04/18 11:00 60 30 107/30 (55) 93 02/04/18 10:30 66 30 127/61 (83) 87 02/04/18 10:00 30 Mechanical Ventilator 80 02/04/18 10:00 74 30 127/55 (79) 90 02/04/18 09:59 74 123/55 02/04/18 09:30 73 30 125/57 (79) 91 02/04/18 09:15 66 30 80 02/04/18 09:00 68 30 103/48 (66) 96 02/04/18 09:00 30 Mechanical Ventilator 85 02/04/18 08:30 68 30 100/48 (65) 98 02/04/18 08:00 98.6 77 30 115/47 (69) 98 02/04/18 08:00 30 Mechanical Ventilator 85 02/04/18 08:00 Mechanical Ventilator 02/04/18 08:00 85 02/04/18 08:00 76 02/04/18 07:36 67 30 97 Mechanical Ventilator 85 02/04/18 07:30 67 30 102/51 (68) 97 18 07:27 85 02/04/18 07:26 67 30 97 Mechanical Ventilator 85 02/04/18 07:15 67 30 85 02/04/18 07:00 98.8 66 22 91/45 (60) 96 02/04/18 07:00 12 Endotracheal Tube 85 02/04/18 06:00 71 22 101/47 (65) 96 02/04/18 06:00 22 Endotracheal Tube 85 02/04/18 05:10 71 30 Mechanical Ventilator 85 02/04/18 05:10 71 30 85 02/04/18 05:00 71 16 96/57 (70) 96 02/04/18 05:00 16 Endotracheal Tube 85 02/04/18 04:08 98.6 02/04/18 04:00 60 02/04/18 04:00 98.6 69 24 121/51 (74) 93 02/04/18 04:00 24 Endotracheal Tube 85 02/04/18 04:00 85 02/04/18 04:00 Mechanical Ventilator 02/04/18 03:38 30 Endotracheal Tube 85 02/04/18 03:05 72 31 85 02/04/18 03:00 71 22 138/65 (89) 96 02/04/18 03:00 24 Endotracheal Tube 85 02/04/18 02:00 70 28 135/60 (85) 96 02/04/18 02:00 28 Endotracheal Tube 85 02/04/18 01:25 68 30 96 Mechanical Ventilator 85 02/04/18 01:15 65 30 96 Mechanical Ventilator 85 02/04/18 01:15 65 30 85 02/04/18 01:15 85 02/04/18 01:00 66 28 117/56 (76) 96 02/04/18 01:00 28 Endotracheal Tube 85 02/04/18 00:00 85 02/04/18 00:00 65 02/04/18 00:00 30 Endotracheal Tube 85 02/04/18 00:00 Mechanical Ventilator 02/04/18 00:00 98.6 77 30 112/55 (74) 91 02/03/18 23:05 65 30 85 02/03/18 23:00 30 Endotracheal Tube 85 02/03/18 23:00 66 30 117/51 (73) 96 02/03/18 22:00 30 Endotracheal Tube 85 02/03/18 22:00 66 30 122/52 (75) 96 02/03/18 21:46 74 111/61 02/03/18 21:05 117 31 100 02/03/18 21:00 74 30 157/69 (98) 93 02/03/18 20:00 70 02/03/18 20:00 99.0 77 26 149/61 (90) 91 02/03/18 20:00 85 02/03/18 20:00 Mechanical Ventilator 02/03/18 20:00 26 Endotracheal Tube 85 02/03/18 19:24 66 30 95 Mechanical Ventilator 85 02/03/18 19:14 85 02/03/18 19:14 66 31 94 Mechanical Ventilator 85 12/14/18 19:13 66 31 85 02/03/18 19:00 30 Endotracheal Tube 85 02/03/18 19:00 70 24 126/61 (82) 95 02/03/18 18:30 70 30 108/54 (72) 95 18 18:00 68 30 118/62 (80) 94 18 18:00 30 Mechanical Ventilator 85 02/03/18 17:30 66 30 112/54 (73) 91 Intake and Output 02/03/18 02/04/18 19:00 07:00 Intake Total 1099.75 ml 1172.93 ml Output Total 650 ml 445 ml Balance 449.75 ml 727.93 ml Free Water 100 ml IV Total 439.75 ml 412.93 ml Tube Feeding 600 ml 600 ml Other 60 ml 60 ml Output Urine Total 650 ml 445 ml Laboratory Tests 02/04/18 04:20: White Blood Count 16.3H, Red Blood Count 3.50L, Hemoglobin 11.0L, Hematocrit 33.4L, Mean Corpuscular Volume 95, Mean Corpuscular Hemoglobin 31.5H, Mean Corpuscular Hemoglobin Concent 33.0, Red Cell Distribution Width 13.9, Platelet Count 236, Mean Platelet Volume 7.7, Neutrophils (%) (Auto) , Lymphocytes (%) ( Auto) , Monocytes (%) (Auto) , Eosinophils (%) (Auto) , Basophils (%) (Auto) , Differential Total Cells Counted 100, Neutrophils % (Manual) 94H, Lymphocytes % (Manual) 4L, Monocytes % (Manual) 2, Eosinophils % (Manual) 0, Basophils % ( Manual) 0, Band Neutrophils 0, Platelet Estimate Adequate, Platelet Morphology Normal, Red Blood Cell Morphology Normal, Sodium Level 147H, Potassium Level 3.7 , Chloride Level 110H, Carbon Dioxide Level 36H, Anion Gap 1L, Blood Urea Nitrogen 33H, Creatinine 0.8, Estimat Glomerular Filtration Rate , Glucose Level 99, Calcium Level 7.9L, Phosphorus Level 3.9, Magnesium Level 2.0, Total Bilirubin 1.0, Aspartate Amino Transf (AST/SGOT) 27, Alanine Aminotransferase ( ALT/SGPT) 19, Alkaline Phosphatase 71, C-Reactive Protein, Quantitative 18.2H, Pro-B-Type Natriuretic Peptide 2957H, Total Protein 6.0L, Albumin 1.5L, Globulin 4.5, Albumin/Globulin Ratio 0.3L Height (Feet): 5 Height (Inches): 9.00 Weight (Pounds): 187 Objective WDWN NCAT supple (+) NGT, ETT CTA RRR abd soft ND no edema Reggie Paredes MD Feb 04, 2018 17:30
--- NOTE | 2018-02-04 19:29 | Pulmonolgy Critical Care Note ---
Critical Care - Asmt/Plan Assessment/Plan: Pulmonary CCM Progress Note Critical Care - Asmt/Plan Problems: (1) Pulmonary fibrosis (2) Multifocal pneumonia (3) Respiratory disorder with ventilator dependence (4) Lactic acid acidosis (5) Abnormal LFTs (6) OLEG (acute kidney injury) (7) SIRS (systemic inflammatory response syndrome) (8) UTI (urinary tract infection) Assessment/Plan: ASSESSMENT: The patient is a 77-year-old male, current daily smoker with history of hypertension, back pain, lack of health maintenance, presenting with respiratory illness, bilateral pneumonia, lactic acidosis, abnormal kidney function and renal function likely OLEG, and shock liver. 01/26: Prog hypoxemia, inc WOB, tx'd to ICU, intubated 01/27: Gas exchange better, trops downtrending, LA resolved 01/30: Oxygenation stable, stable on vent PROBLEM LIST: 1. Bilateral parenchymal infiltrates, multilobar pneumonia on top of underlying fibrotic lung disease 2. VDRF 3. Metabolic & respiratory acidosis 4. Likely underlying pulmonary fibrosis and COPD 5. NSTEMI, likely demand ischemia 6. Lactic acidosis - RESOLVED 7. Abnormal creatinine, likely acute kidney injury - IMPROVED 8. Abnormal liver function tests - IMPROVED 9. SIRS 10. History of hypertension. 11. PNEUMONIA 12. Constipation TREATMENT PLAN: Continue ventilatory support/settings reviewed, monitor gas exchange PEEP 7, dec FiO2 to keep SaO2 > 90 and <94 AM ABG RTC and PRN DUOnebs Cefepime (D8), Vanco (D7) per ID, F/U Cx's Cautious TF's, monitor residuals ICU sedation: Fentanyl gtt for RASS - 2, Versed 2 mg IV q4 PRN F/U cardiology recs Monitor volumes and renal function, decreased IVF to 25, lasix 20 IV x 1 now Wound care GI recs, bowel regimen Discuss GOC, FC Px: Hep SQ, H2B D/W family, RN, RT and team CCT 45 Critical Care - Objective Vital Signs Noted Status: awake Condition: critical Lungs: rhonchi Heart: HR/BP stable Abdomen: soft, non-tender, active bowel sounds Extremities: no C/C/E Decubiti: location - sacral Blood Sugars: BS controlled Critical Care - Subjective ROS Limited/Unobtainable: Yes ICU Day: 7 Intubation Day: 7 Interval Events: FiO2 inc 70, PEEP 5 Secretions thin clear Edematous UE . LE Condition: critical IV Access: peripheral - x2 FI02: 70 Vent Support Breath Rate: 30 Vent Support Mode: AC Vent Tidal Volume: 600 Sputum Amount: Moderate PEEP: 5.0 PIP: 34 Fluids: D51/2NS @ 50 Drips: Fent off Tube Feeding Amount: 50 Subjective: IRENE ET-Tube: 7.5 ET Position: 23 Labs: Laboratory Tests Test 02/01/18 04:00 White Blood Count 13.1 K/UL (4.8-10.8) H Red Blood Count 3.41 M/UL (4.70-6.10) L Hemoglobin 10.8 G/DL (14.2-18.0) L Hematocrit 32.6 % (42.0-52.0) L Mean Corpuscular Volume 96 FL (80-99) Mean Corpuscular Hemoglobin 31.6 PG (27.0-31.0) H Mean Corpuscular Hemoglobin Concent 33.1 G/DL (32.0-36.0) Red Cell Distribution Width 13.4 % (11.6-14.8) Platelet Count 207 K/UL (150-450) Mean Platelet Volume 8.8 FL (6.5-10.1) Neutrophils (%) (Auto) % (45.0-75.0) Lymphocytes (%) (Auto) % (20.0-45.0) Monocytes (%) (Auto) % (1.0-10.0) Eosinophils (%) (Auto) % (0.0-3.0) Basophils (%) (Auto) % (0.0-2.0) Sodium Level 148 MMOL/L (136-145) H Potassium Level 3.8 MMOL/L (3.5-5.1) Chloride Level 112 MMOL/L (98-107) H Carbon Dioxide Level 31 MMOL/L (21-32) Anion Gap 5 mmol/L (5-15) Blood Urea Nitrogen 36 mg/dL (7-18) H Creatinine 0.8 MG/DL (0.55-1.30) Estimat Glomerular Filtration Rate mL/min (>60) Glucose Level 125 MG/DL (74-106) H Calcium Level 8.1 MG/DL (8.5-10.1) L Phosphorus Level 3.2 MG/DL (2.5-4.9) Magnesium Level 1.8 MG/DL (1.8-2.4) Total Bilirubin 0.7 MG/DL (0.2-1.0) Aspartate Amino Transf (AST/SGOT) 20 U/L (15-37) Alanine Aminotransferase (ALT/SGPT) 16 U/L (12-78) Alkaline Phosphatase 78 U/L (46-116) Total Protein 5.8 G/DL (6.4-8.2) L Albumin 1.4 G/DL (3.4-5.0) L Globulin 4.4 g/dL Albumin/Globulin Ratio 0.3 (1.0-2.7) L Critical Care - Objective Last 24 Hour Vital Signs Date Time Temp Pulse Resp B/P (MAP) Pulse Ox O2 Delivery O2 Flow Rate FiO2 02/04/18 19:24 21 Mechanical Ventilator 75 02/04/18 19:20 72 30 75 02/04/18 19:16 70 30 95 Mechanical Ventilator 75 02/04/18 18:30 68 30 115/57 (76) 95 02/04/18 18:00 66 30 118/48 (71) 95 02/04/18 18:00 30 Mechanical Ventilator 85 02/04/18 17:30 65 30 115/52 (73) 95 02/04/18 17:26 63 30 75 02/04/18 17:00 30 Mechanical Ventilator 85 02/04/18 17:00 64 30 105/57 (73) 94 02/04/18 16:30 66 30 107/53 (71) 95 02/04/18 16:00 99.2 66 30 108/55 (72) 95 02/04/18 16:00 75 02/04/18 16:00 30 Mechanical Ventilator 85 02/04/18 16:00 Mechanical Ventilator 02/04/18 16:00 66 02/04/18 15:30 67 30 107/48 (67) 94 02/04/18 15:00 30 Mechanical Ventilator 85 02/04/18 15:00 63 30 110/51 (70) 95 02/04/18 14:50 66 30 75 02/04/18 14:30 67 30 102/52 (69) 97 02/04/18 14:00 30 Mechanical Ventilator 85 02/04/18 14:00 62 30 105/52 (69) 95 02/04/18 13:30 65 30 119/51 (73) 95 02/04/18 13:18 68 30 95 Mechanical Ventilator 85 02/04/18 13:09 85 02/04/18 13:08 62 30 96 Mechanical Ventilator 85 02/04/18 13:06 62 30 80 02/04/18 13:00 30 Mechanical Ventilator 85 02/04/18 13:00 65 30 111/54 (73) 95 02/04/18 12:30 61 30 114/59 (77) 94 02/04/18 12:00 85 02/04/18 12:00 59 02/04/18 12:00 Mechanical Ventilator 02/04/18 12:00 30 Mechanical Ventilator 85 02/04/18 12:00 98.7 62 30 107/51 (69) 95 02/04/18 11:30 63 30 102/52 (69) 95 02/04/18 11:00 65 33 80 02/04/18 11:00 30 Mechanical Ventilator 80 02/04/18 11:00 60 30 107/30 (55) 93 02/04/18 10:30 66 30 127/61 (83) 87 02/04/18 10:00 30 Mechanical Ventilator 80 02/04/18 10:00 74 30 127/55 (79) 90 02/04/18 09:59 74 123/55 02/04/18 09:30 73 30 125/57 (79) 91 02/04/18 09:15 66 30 80 02/04/18 09:00 68 30 103/48 (66) 96 02/04/18 09:00 30 Mechanical Ventilator 85 02/04/18 08:30 68 30 100/48 (65) 98 02/04/18 08:00 98.6 77 30 115/47 (69) 98 02/04/18 08:00 30 Mechanical Ventilator 85 02/04/18 08:00 Mechanical Ventilator 02/04/18 08:00 85 02/04/18 08:00 76 02/04/18 07:36 67 30 97 Mechanical Ventilator 85 02/04/18 07:30 67 30 102/51 (68) 97 02/04/18 07:27 85 02/04/18 07:26 67 30 97 Mechanical Ventilator 85 02/04/18 07:15 67 30 85 02/04/18 07:00 98.8 66 22 91/45 (60) 96 02/04/18 07:00 12 Endotracheal Tube 85 02/04/18 06:00 71 22 101/47 (65) 96 02/04/18 06:00 22 Endotracheal Tube 85 02/04/18 05:10 71 30 Mechanical Ventilator 85 02/04/18 05:10 71 30 85 02/04/18 05:00 71 16 96/57 (70) 96 02/04/18 05:00 16 Endotracheal Tube 85 02/04/18 04:08 98.6 02/04/18 04:00 60 02/04/18 04:00 98.6 69 24 121/51 (74) 93 02/04/18 04:00 24 Endotracheal Tube 85 02/04/18 04:00 85 02/04/18 04:00 Mechanical Ventilator 02/04/18 03:38 30 Endotracheal Tube 85 02/04/18 03:05 72 31 85 02/04/18 03:00 71 22 138/65 (89) 96 02/04/18 03:00 24 Endotracheal Tube 85 02/04/18 02:00 70 28 135/60 (85) 96 02/04/18 02:00 28 Endotracheal Tube 85 02/04/18 01:25 68 30 96 Mechanical Ventilator 85 02/04/18 01:15 65 30 96 Mechanical Ventilator 85 02/04/18 01:15 65 30 85 02/04/18 01:15 85 02/04/18 01:00 66 28 117/56 (76) 96 02/04/18 01:00 28 Endotracheal Tube 85 02/04/18 00:00 85 02/04/18 00:00 65 02/04/18 00:00 30 Endotracheal Tube 85 02/04/18 00:00 Mechanical Ventilator 02/04/18 00:00 98.6 77 30 112/55 (74) 91 02/03/18 23:05 65 30 85 02/03/18 23:00 30 Endotracheal Tube 85 02/03/18 23:00 66 30 117/51 (73) 96 02/03/18 22:00 30 Endotracheal Tube 85 02/03/18 22:00 66 30 122/52 (75) 96 18 21:46 74 111/61 02/03/18 21:05 117 31 100 02/03/18 21:00 74 30 157/69 (98) 93 02/03/18 20:00 70 12/14/18 20:00 99.0 77 26 149/61 (90) 91 02/03/18 20:00 85 02/03/18 20:00 Mechanical Ventilator 02/03/18 20:00 26 Endotracheal Tube 85 Critical Care - Subjective ROS Limited/Unobtainable: No FI02: 75 Vent Support Breath Rate: 30 Vent Support Mode: AC Vent Tidal Volume: 600 Sputum Amount: Small PEEP: 7.0 PIP: 41 Tube Feeding Amount: 50 I&O: Intake and Output 02/03/18 02/04/18 19:00 07:00 Intake Total 1099.75 ml 1172.93 ml Output Total 650 ml 445 ml Balance 449.75 ml 727.93 ml Free Water 100 ml IV Total 439.75 ml 412.93 ml Tube Feeding 600 ml 600 ml Other 60 ml 60 ml Output Urine Total 650 ml 445 ml ET-Tube: 7.5 ET Position: 23 Tyrel Gonzalez MD Feb 04, 2018 19:29
[2018-02-04] MEDS: Miralax 17gm pkt NG SCH (20:51)
[2018-02-05] VITALS (36 sets, daily range): BP systolic 83–142; BP diastolic 47–72
[2018-02-05] MEDS: Albuterol/Ipratropium 3ml neb HHN SCH ×4 (01:13→19:32)
[2018-02-05] MEDS: Metoprolol Tartrate 50mg tab ORAL SCH ×2 (09:13→21:03)
[2018-02-05] MEDS: Cefepime HCl 1 GM in D5W 55 ML IVPB SCH ×2 (09:15→21:31)
[2018-02-05] MEDS: Heparin 5000 units/ml inj SUBQ SCH ×2 (09:17→21:04)
--- NOTE | 2018-02-05 09:38 | Infectious Diseases Prog Note ---
Assessment/Plan Assessment/Plan A: 1. Sepsis 2. Hypoxemic respiratory failure 3. Acute renal failure. 4. Lactic acidosis. 5. Increase in bilirubin, s/p cholecystectomy 6. Pulmonary fibrosis 7. Pulmonary hypertension 8.Hepatitis A P; Continue Cefepime F/U CBC & CXR Subjective ROS Limited/Unobtainable: Yes Neurologic: Reports: confusion, other - on restraint Allergies: Coded Allergies: No Known Allergies (Unverified , 01/24/18) Objective Vital Signs Last 24 Hour Vital Signs Date Time Temp Pulse Resp B/P (MAP) Pulse Ox O2 Delivery O2 Flow Rate FiO2 02/05/18 09:13 69 106/54 02/05/18 08:51 67 30 75 02/05/18 08:00 Mechanical Ventilator Mechanical Ventilator 02/05/18 08:00 98.8 67 30 105/54 (71) 94 02/05/18 08:00 75 02/05/18 07:23 72 30 94 Mechanical Ventilator 75 02/05/18 07:15 75 02/05/18 07:13 69 30 92 Mechanical Ventilator 75 02/05/18 07:06 66 30 75 02/05/18 07:00 64 30 105/50 (68) 91 02/05/18 07:00 30 Mechanical Ventilator 75 02/05/18 06:30 66 30 113/52 (72) 91 02/05/18 06:00 30 Mechanical Ventilator 75 02/05/18 06:00 71 30 123/56 (78) 91 02/05/18 05:47 30 75 02/05/18 05:30 71 30 75 02/05/18 05:30 69 29 105/64 (78) 92 02/05/18 05:00 73 27 135/54 (81) 91 02/05/18 05:00 27 Mechanical Ventilator 75 02/05/18 04:30 64 30 102/51 (68) 94 02/05/18 04:00 98.6 66 30 104/49 (67) 94 02/05/18 04:00 30 Mechanical Ventilator 75 02/05/18 04:00 Mechanical Ventilator 02/05/18 04:00 75 02/05/18 03:30 69 30 99/51 (67) 94 02/05/18 03:28 62 31 75 02/05/18 03:06 67 02/05/18 03:00 70 23 113/50 (71) 90 02/05/18 03:00 23 Mechanical Ventilator 75 02/05/18 02:30 70 25 122/61 (81) 90 02/05/18 02:00 68 27 111/52 (71) 91 02/05/18 02:00 27 Mechanical Ventilator 75 02/05/18 01:30 63 30 101/48 (65) 91 02/05/18 01:24 75 02/05/18 01:24 60 30 96 Mechanical Ventilator 75 02/05/18 01:13 66 30 96 Mechanical Ventilator 75 02/05/18 01:10 69 30 75 02/05/18 01:00 62 30 106/47 (66) 90 02/05/18 01:00 30 Mechanical Ventilator 75 02/05/18 00:30 63 30 105/64 (78) 91 02/05/18 00:00 Mechanical Ventilator 02/05/18 00:00 98.5 61 30 99/49 (66) 95 02/05/18 00:00 30 Mechanical Ventilator 75 02/04/18 23:30 62 30 99/43 (61) 95 02/04/18 23:01 61 30 75 02/04/18 23:00 63 30 90/47 (61) 94 02/04/18 23:00 30 Mechanical Ventilator 75 02/04/18 22:59 68 02/04/18 22:30 61 30 93/44 (60) 94 02/04/18 22:00 30 Mechanical Ventilator 75 02/04/18 22:00 62 30 100/47 (64) 92 18 21:30 68 25 112/53 (72) 90 02/04/18 21:24 63 30 75 02/04/18 21:00 31 Mechanical Ventilator 75 02/04/18 21:00 81 31 147/63 (91) 91 02/04/18 20:52 79 146/59 18 20:30 79 22 146/59 (88) 94 18 20:00 75 02/04/18 20:00 98.9 74 18 132/78 (96) 93 18 20:00 18 Mechanical Ventilator 75 02/04/18 20:00 Mechanical Ventilator 02/04/18 19:34 75 02/04/18 19:34 71 30 95 Mechanical Ventilator 75 02/04/18 19:30 76 16 118/53 (74) 92 18 19:24 21 Mechanical Ventilator 75 18 19:20 72 30 75 18 19:16 70 30 95 Mechanical Ventilator 75 18 19:10 73 /18 19:00 21 Mechanical Ventilator 75 18 19:00 71 21 129/54 (79) 96 02/04/18 18:30 68 30 115/57 (76) 95 18 18:00 66 30 118/48 (71) 95 18 18:00 30 Mechanical Ventilator 85 18 17:30 65 30 115/52 (73) 95 18 17:26 63 30 75 02/04/18 17:00 30 Mechanical Ventilator 85 02/04/18 17:00 64 30 105/57 (73) 94 02/04/18 16:30 66 30 107/53 (71) 95 18 16:00 99.2 66 30 108/55 (72) 95 02/04/18 16:00 75 02/04/18 16:00 30 Mechanical Ventilator 85 18 16:00 Mechanical Ventilator 02/04/18 16:00 66 02/04/18 15:30 67 30 107/48 (67) 94 18 15:00 30 Mechanical Ventilator 85 02/04/18 15:00 63 30 110/51 (70) 95 02/04/18 14:50 66 30 75 18 14:30 67 30 102/52 (69) 97 18 14:00 30 Mechanical Ventilator 85 02/04/18 14:00 62 30 105/52 (69) 95 18 13:30 65 30 119/51 (73) 95 02/04/18 13:18 68 30 95 Mechanical Ventilator 85 02/04/18 13:09 85 02/04/18 13:08 62 30 96 Mechanical Ventilator 85 02/04/18 13:06 62 30 80 02/04/18 13:00 30 Mechanical Ventilator 85 18 13:00 65 30 111/54 (73) 95 02/04/18 12:30 61 30 114/59 (77) 94 02/04/18 12:00 85 02/04/18 12:00 59 02/04/18 12:00 Mechanical Ventilator 02/04/18 12:00 30 Mechanical Ventilator 85 02/04/18 12:00 98.7 62 30 107/51 (69) 95 02/04/18 11:30 63 30 102/52 (69) 95 02/04/18 11:00 65 33 80 02/04/18 11:00 30 Mechanical Ventilator 80 02/04/18 11:00 60 30 107/30 (55) 93 02/04/18 10:30 66 30 127/61 (83) 87 02/04/18 10:00 30 Mechanical Ventilator 80 02/04/18 10:00 74 30 127/55 (79) 90 02/04/18 09:59 74 123/55 Height (Feet): 5 Height (Inches): 9.00 Weight (Pounds): 187 HEENT: other - orally intubated Respiratory/Chest: lungs clear, other - on ventilator Cardiovascular: normal rate Abdomen: soft, non tender, other - GT feeding Extremities: no edema Neurologic/Psychiatric: alert, other - opens eyes Current Medications Medications (Trade) Dose Ordered Sig/Chaka Route PRN Reason Start Time Stop Time Status Last Admin Dose Admin Acetaminophen (Tylenol) 650 mg PRN PRN RECTAL Prn Headache/Temp > 101 01/26/18 22:15 02/23/18 22:14 01/28/18 20:35 Albuterol/ Ipratropium (Albuterol/ Ipratropium) 3 ml Q4H PRN HHN Shortness of Breath 02/01/18 13:30 02/06/18 13:29 Albuterol/ Ipratropium (Albuterol/ Ipratropium) 3 ml Q6HRT HHN 02/01/18 19:00 02/06/18 18:59 02/05/18 07:13 Cefepime HCl 1 gm/ Dextrose 55 ml @ 110 mls/hr Q12HR@1000,2200 IVPB 01/30/18 10:00 02/10/18 09:59 02/05/18 09:15 Dextrose/Sodium Chloride 1,000 ml @ 25 mls/hr Q24H IV 02/02/18 14:00 02/28/18 13:59 02/04/18 03:01 Diphenhydramine HCl (Benadryl) 25 mg Q6H PRN IVP Itching 01/26/18 22:15 02/25/18 22:14 Famotidine (Pepcid I.v.) 20 mg Q12HR IVP 01/26/18 10:00 02/24/18 09:59 02/05/18 09:14 Fentanyl Citrate 1000 mcg/Sodium Chloride 100 ml @ 0 mls/hr Q24H IV 02/02/18 15:13 02/09/18 15:12 02/05/18 05:47 Haloperidol Lactate (Haldol) 5 mg Q6H PRN IM Agitation 01/27/18 13:00 02/26/18 12:59 Heparin Sodium (Porcine) (Heparin 5000 units/ml) 5,000 units EVERY 12 HOURS SUBQ 01/27/18 21:00 02/26/18 20:59 02/05/18 09:17 Lactulose (Cephulac) 20 gm DAILYPRN PRN NG Constipation 02/03/18 13:15 03/04/18 12:59 Magnesium Hydroxide (Mom) 30 ml DAILYPRN PRN ORAL Constipation 01/30/18 14:15 03/01/18 14:14 02/02/18 07:00 Metoprolol Tartrate (Lopressor) 50 mg Q12HR ORAL 01/31/18 21:00 02/25/18 20:59 02/05/18 09:13 Midazolam HCl (Versed 2mg/2ml vial) 2 mg EVERY 4 HOURS PRN IVP For Anxiety 01/26/18 10:00 02/25/18 09:59 02/02/18 02:16 Olanzapine (ZyPREXA) 2.5 mg BEDTIME PRN ORAL agitation 01/26/18 21:00 02/25/18 20:59 Ondansetron HCl (Zofran) 4 mg Q6H PRN IVP Nausea & Vomiting 01/26/18 22:15 02/25/18 22:14 Polyethylene Glycol (Miralax) 17 gm BEDTIME NG 01/31/18 21:00 03/02/18 20:59 02/04/18 20:51 Ha Tello MD Feb 05, 2018 09:38
[2018-02-05 09:42] LABS: BASOPHILS % (AUTO) 0.6 % (0.0-2.0); EOSINOPHILS % (AUTO) 1.4 % (0.0-3.0); HEMATOCRIT 29.3 % (42.0-52.0); HEMOGLOBIN 9.6 G/DL (14.2-18.0); LYMPHOCYTES % (AUTO) 7.3 % (20.0-45.0); MEAN CORPUSCULAR VOLUME 96 FL (80-99); MONOCYTES % (AUTO) 5.8 % (1.0-10.0); NEUTROPHILS % (AUTO) 84.9 % (45.0-75.0); PLATELET COUNT 237 K/UL (150-450); RED BLOOD COUNT 3.07 M/UL (4.70-6.10); RED CELL DISTRIBUTION WIDTH 13.9 % (11.6-14.8); WHITE BLOOD COUNT 14.2 K/UL (4.8-10.8)
[2018-02-05 10:02] LABS: ALANINE AMINOTRANSFERASE 15 U/L (12-78); ALBUMIN 1.3 G/DL (3.4-5.0); ALBUMIN/GLOBULIN RATIO 0.3 (1.0-2.7); ALKALINE PHOSPHATASE 63 U/L (46-116); ANION GAP 3 mmol/L (5-15); ASPARTATE AMINO TRANSFERASE 22 U/L (15-37); BILIRUBIN,TOTAL 0.5 MG/DL (0.2-1.0); BLOOD UREA NITROGEN 31 mg/dL (7-18); CALCIUM 7.8 MG/DL (8.5-10.1); CARBON DIOXIDE 35 MMOL/L (21-32); CHLORIDE 110 MMOL/L (98-107); CREATININE 0.9 MG/DL (0.55-1.30); SODIUM 148 MMOL/L (136-145)
--- NOTE | 2018-02-05 12:29 | General Progress Note ---
Assessment/Plan Assessment/Plan # Leukocytosis. Secondary to sepsis and pna. is on abx at this time --> WBC improving 16k--> 12k-->13k-->12.2k-->14.2k --> Peripheral has been ordered and reviewed and no blasts are noted --> Medications have been reviewed --> Imaging has been reviewed, reveals apparent worsening of bilateral parenchymal disease --> Blood cultures and urine cultures are reviewed as well --> S/P abx, empiric treatment per id # Anemia of chronic disease due to underlying chronic medical issues, multifactorial. --> Given downtrending hgb, will order a anemia panel - pending --> Cont to monitor for stability --> Hgb goal >7, transfuse prn --> hgb 13-->11.2-->11-->9.5-->9.6 # Coagulopathy is now off hep gtt --> hepatitis A++, HIV negative --> ptt and mixing study - elevated at 30.8 # Respiratory failure is on a vent. --> Pt unable to wean off of vent --> per pulm # Pneumonia. s/p abx # Urinary tract infection. --> s/p abx # Status post recurrent falls. # Sepsis. # Dehydration. # Afib and now in sr --> as per cards GREATLY APPRECIATE CONSULTATION. Subjective ROS Limited/Unobtainable: Yes Allergies: Coded Allergies: No Known Allergies (Unverified , 01/24/18) Subjective Pt awake and agitated. Pt remains in ICU, on vent. Pt unable to wean off of vent Objective Last 24 Hour Vital Signs Date Time Temp Pulse Resp B/P (MAP) Pulse Ox O2 Delivery O2 Flow Rate FiO2 02/05/18 12:00 Mechanical Ventilator Mechanical Ventilator 02/05/18 12:00 75 02/05/18 12:00 98.7 70 30 134/64 (87) 92 02/05/18 11:00 68 30 133/72 (92) 96 02/05/18 10:58 72 30 75 02/05/18 10:00 61 30 105/57 (73) 91 02/05/18 10:00 31 Mechanical Ventilator 75 02/05/18 09:13 69 106/54 02/05/18 09:00 30 Mechanical Ventilator 75 12/16/18 09:00 60 30 113/58 (76) 94 18 08:51 67 30 75 18 08:00 Mechanical Ventilator Mechanical Ventilator 02/05/18 08:00 98.8 67 30 105/54 (71) 94 18 08:00 62 1618 08:00 75 1618 08:00 30 Mechanical Ventilator 75 18 07:23 72 30 94 Mechanical Ventilator 75 02/05/18 07:15 75 02/05/18 07:13 69 30 92 Mechanical Ventilator 75 18 07:06 66 30 75 18 07:00 64 30 105/50 (68) 91 02/05/18 07:00 30 Mechanical Ventilator 75 02/05/18 06:30 66 30 113/52 (72) 91 02/05/18 06:00 30 Mechanical Ventilator 75 18 06:00 71 30 123/56 (78) 91 02/05/18 05:47 30 75 02/05/18 05:30 71 30 75 02/05/18 05:30 69 29 105/64 (78) 92 02/05/18 05:00 73 27 135/54 (81) 91 18 05:00 27 Mechanical Ventilator 75 02/05/18 04:30 64 30 102/51 (68) 94 02/05/18 04:00 98.6 66 30 104/49 (67) 94 18 04:00 30 Mechanical Ventilator 75 02/05/18 04:00 Mechanical Ventilator 02/05/18 04:00 75 02/05/18 03:30 69 30 99/51 (67) 94 18 03:28 62 31 75 18 03:06 67 18 03:00 70 23 113/50 (71) 90 02/05/18 03:00 23 Mechanical Ventilator 75 18 02:30 70 25 122/61 (81) 90 18 02:00 68 27 111/52 (71) 91 02/05/18 02:00 27 Mechanical Ventilator 75 18 01:30 63 30 101/48 (65) 91 18 01:24 75 18 01:24 60 30 96 Mechanical Ventilator 75 12/16/18 01:13 66 30 96 Mechanical Ventilator 75 02/05/18 01:10 69 30 75 02/05/18 01:00 62 30 106/47 (66) 90 02/05/18 01:00 30 Mechanical Ventilator 75 02/05/18 00:30 63 30 105/64 (78) 91 02/05/18 00:00 Mechanical Ventilator 02/05/18 00:00 98.5 61 30 99/49 (66) 95 02/05/18 00:00 30 Mechanical Ventilator 75 02/04/18 23:30 62 30 99/43 (61) 95 02/04/18 23:01 61 30 75 02/04/18 23:00 63 30 90/47 (61) 94 02/04/18 23:00 30 Mechanical Ventilator 75 02/04/18 22:59 68 02/04/18 22:30 61 30 93/44 (60) 94 02/04/18 22:00 30 Mechanical Ventilator 75 02/04/18 22:00 62 30 100/47 (64) 92 02/04/18 21:30 68 25 112/53 (72) 90 02/04/18 21:24 63 30 75 02/04/18 21:00 31 Mechanical Ventilator 75 02/04/18 21:00 81 31 147/63 (91) 91 02/04/18 20:52 79 146/59 02/04/18 20:30 79 22 146/59 (88) 94 02/04/18 20:00 75 02/04/18 20:00 98.9 74 18 132/78 (96) 93 02/04/18 20:00 18 Mechanical Ventilator 75 02/04/18 20:00 Mechanical Ventilator 02/04/18 19:34 75 02/04/18 19:34 71 30 95 Mechanical Ventilator 75 02/04/18 19:30 76 16 118/53 (74) 92 02/04/18 19:24 21 Mechanical Ventilator 75 02/04/18 19:20 72 30 75 02/04/18 19:16 70 30 95 Mechanical Ventilator 75 18 19:10 73 02/04/18 19:00 21 Mechanical Ventilator 75 18 19:00 71 21 129/54 (79) 96 02/04/18 18:30 68 30 115/57 (76) 95 02/04/18 18:00 66 30 118/48 (71) 95 02/04/18 18:00 30 Mechanical Ventilator 85 18 17:30 65 30 115/52 (73) 95 18 17:26 63 30 75 02/04/18 17:00 30 Mechanical Ventilator 85 02/04/18 17:00 64 30 105/57 (73) 94 18 16:30 66 30 107/53 (71) 95 02/04/18 16:00 99.2 66 30 108/55 (72) 95 02/04/18 16:00 75 18 16:00 30 Mechanical Ventilator 85 02/04/18 16:00 Mechanical Ventilator 02/04/18 16:00 66 02/04/18 15:30 67 30 107/48 (67) 94 02/04/18 15:00 30 Mechanical Ventilator 85 02/04/18 15:00 63 30 110/51 (70) 95 02/04/18 14:50 66 30 75 02/04/18 14:30 67 30 102/52 (69) 97 02/04/18 14:00 30 Mechanical Ventilator 85 02/04/18 14:00 62 30 105/52 (69) 95 02/04/18 13:30 65 30 119/51 (73) 95 02/04/18 13:18 68 30 95 Mechanical Ventilator 85 02/04/18 13:09 85 02/04/18 13:08 62 30 96 Mechanical Ventilator 85 02/04/18 13:06 62 30 80 02/04/18 13:00 30 Mechanical Ventilator 85 02/04/18 13:00 65 30 111/54 (73) 95 02/04/18 12:30 61 30 114/59 (77) 94 Intake and Output 02/04/18 02/05/18 18:59 06:59 Intake Total 1151 ml 1051 ml Output Total 550 ml 670 ml Balance 601 ml 381 ml Free Water 100 ml IV Total 451 ml 451 ml Tube Feeding 600 ml 600 ml Output Urine Total 550 ml 670 ml Laboratory Tests 02/05/18 09:05: White Blood Count 14.2H, Red Blood Count 3.07L, Hemoglobin 9.6L, Hematocrit 29.3L, Mean Corpuscular Volume 96, Mean Corpuscular Hemoglobin 31.3H, Mean Corpuscular Hemoglobin Concent 32.7, Red Cell Distribution Width 13.9, Platelet Count 237, Mean Platelet Volume 7.4, Neutrophils (%) (Auto) 84.9H, Lymphocytes ( %) (Auto) 7.3L, Monocytes (%) (Auto) 5.8, Eosinophils (%) (Auto) 1.4, Basophils (%) (Auto) 0.6, Sodium Level 148H, Potassium Level 4.0, Chloride Level 110H, Carbon Dioxide Level 35H, Anion Gap 3L, Blood Urea Nitrogen 31H, Creatinine 0.9 , Estimat Glomerular Filtration Rate , Glucose Level 128H, Calcium Level 7.8L, Total Bilirubin 0.5, Aspartate Amino Transf (AST/SGOT) 22, Alanine Aminotransferase (ALT/SGPT) 15, Alkaline Phosphatase 63, Total Protein 5.4L, Albumin 1.3L, Globulin 4.1, Albumin/Globulin Ratio 0.3L Height (Feet): 5 Height (Inches): 9.00 Weight (Pounds): 185 Objective Status: awake Condition: critical Lungs: rhonchi ++ VENT Heart: HR/BP stable Abdomen: soft, non-tender, active bowel sounds Extremities: no C/C/E Decubiti: location - sacral Blood Sugars: BS controlled Fabian Yung MD Feb 05, 2018 12:29
--- NOTE | 2018-02-05 12:53 | General Progress Note ---
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 (2) Renal insufficiency ICD Codes: N28.9 - Disorder of kidney and ureter, unspecified; R65.20 - Severe sepsis without septic shock SNOMED: 734426145, 161742356 (3) UTI (urinary tract infection) ICD Codes: N39.0 - Urinary tract infection, site not specified SNOMED: 75990839, 806374887 Qualifiers: Qualified Codes: N39.0 - Urinary tract infection, site not specified (4) Pneumonia ICD Codes: J18.9 - Pneumonia, unspecified organism SNOMED: 049728863 Qualifiers: Qualified Codes: J18.1 - Lobar pneumonia, unspecified organism (5) Severe sepsis ICD Codes: A41.9 - Sepsis, unspecified organism; R65.20 - Severe sepsis without septic shock SNOMED: 77537480 (6) Hypoxia ICD Codes: R09.02 - Hypoxemia; R65.20 - Severe sepsis without septic shock SNOMED: 866394908, 509383170 (7) Pulmonary fibrosis ICD Codes: J84.10 - Pulmonary fibrosis, unspecified SNOMED: 74002399 (8) Lactic acid acidosis ICD Codes: E87.2 - Acidosis SNOMED: 11127208 (9) OLEG (acute kidney injury) ICD Codes: N17.9 - Acute kidney failure, unspecified SNOMED: 70939257 (10) Abnormal LFTs ICD Codes: R94.5 - Abnormal results of liver function studies SNOMED: 981906742 Status: progressing Assessment/Plan severe pulmonary firbrosis resp failure pna sepsis uti abx per id afebrile obs confused reviewed chart and labs Subjective ROS Limited/Unobtainable: Yes Allergies: Coded Allergies: No Known Allergies (Unverified , 01/24/18) Objective Last 24 Hour Vital Signs Date Time Temp Pulse Resp B/P (MAP) Pulse Ox O2 Delivery O2 Flow Rate FiO2 02/05/18 12:46 75 02/05/18 12:45 71 30 94 Mechanical Ventilator 75 02/05/18 12:43 71 30 75 02/05/18 12:00 Mechanical Ventilator Mechanical Ventilator 02/05/18 12:00 75 02/05/18 12:00 98.7 70 30 134/64 (87) 92 02/05/18 12:00 Mechanical Ventilator 75 02/05/18 12:00 68 02/05/18 11:00 68 30 133/72 (92) 96 02/05/18 11:00 30 Mechanical Ventilator 75 02/05/18 10:58 72 30 75 02/05/18 10:00 61 30 105/57 (73) 91 02/05/18 10:00 31 Mechanical Ventilator 75 02/05/18 09:13 69 106/54 02/05/18 09:00 30 Mechanical Ventilator 75 02/05/18 09:00 60 30 113/58 (76) 94 02/05/18 08:51 67 30 75 02/05/18 08:00 Mechanical Ventilator Mechanical Ventilator 02/05/18 08:00 98.8 67 30 105/54 (71) 94 02/05/18 08:00 62 02/05/18 08:00 75 02/05/18 08:00 30 Mechanical Ventilator 75 02/05/18 07:23 72 30 94 Mechanical Ventilator 75 02/05/18 07:15 75 02/05/18 07:13 69 30 92 Mechanical Ventilator 75 02/05/18 07:06 66 30 75 02/05/18 07:00 64 30 105/50 (68) 91 02/05/18 07:00 30 Mechanical Ventilator 75 02/05/18 06:30 66 30 113/52 (72) 91 02/05/18 06:00 30 Mechanical Ventilator 75 02/05/18 06:00 71 30 123/56 (78) 91 02/05/18 05:47 30 75 02/05/18 05:30 71 30 75 02/05/18 05:30 69 29 105/64 (78) 92 02/05/18 05:00 73 27 135/54 (81) 91 02/05/18 05:00 27 Mechanical Ventilator 75 02/05/18 04:30 64 30 102/51 (68) 94 18 04:00 98.6 66 30 104/49 (67) 94 18 04:00 30 Mechanical Ventilator 75 02/05/18 04:00 Mechanical Ventilator 02/05/18 04:00 75 02/05/18 03:30 69 30 99/51 (67) 94 02/05/18 03:28 62 31 75 02/05/18 03:06 67 02/05/18 03:00 70 23 113/50 (71) 90 02/05/18 03:00 23 Mechanical Ventilator 75 02/05/18 02:30 70 25 122/61 (81) 90 02/05/18 02:00 68 27 111/52 (71) 91 02/05/18 02:00 27 Mechanical Ventilator 75 02/05/18 01:30 63 30 101/48 (65) 91 02/05/18 01:24 75 02/05/18 01:24 60 30 96 Mechanical Ventilator 75 02/05/18 01:13 66 30 96 Mechanical Ventilator 75 02/05/18 01:10 69 30 75 02/05/18 01:00 62 30 106/47 (66) 90 02/05/18 01:00 30 Mechanical Ventilator 75 02/05/18 00:30 63 30 105/64 (78) 91 02/05/18 00:00 Mechanical Ventilator 02/05/18 00:00 98.5 61 30 99/49 (66) 95 02/05/18 00:00 30 Mechanical Ventilator 75 02/04/18 23:30 62 30 99/43 (61) 95 02/04/18 23:01 61 30 75 02/04/18 23:00 63 30 90/47 (61) 94 02/04/18 23:00 30 Mechanical Ventilator 75 02/04/18 22:59 68 02/04/18 22:30 61 30 93/44 (60) 94 02/04/18 22:00 30 Mechanical Ventilator 75 02/04/18 22:00 62 30 100/47 (64) 92 18 21:30 68 25 112/53 (72) 90 02/04/18 21:24 63 30 75 02/04/18 21:00 31 Mechanical Ventilator 75 02/04/18 21:00 81 31 147/63 (91) 91 02/04/18 20:52 79 146/59 18 20:30 79 22 146/59 (88) 94 02/04/18 20:00 75 18 20:00 98.9 74 18 132/78 (96) 93 18 20:00 18 Mechanical Ventilator 75 18 20:00 Mechanical Ventilator 18 19:34 75 18 19:34 71 30 95 Mechanical Ventilator 75 02/04/18 19:30 76 16 118/53 (74) 92 02/04/18 19:24 21 Mechanical Ventilator 75 02/04/18 19:20 72 30 75 02/04/18 19:16 70 30 95 Mechanical Ventilator 75 02/04/18 19:10 73 02/04/18 19:00 21 Mechanical Ventilator 75 02/04/18 19:00 71 21 129/54 (79) 96 18 18:30 68 30 115/57 (76) 95 18 18:00 66 30 118/48 (71) 95 18 18:00 30 Mechanical Ventilator 85 02/04/18 17:30 65 30 115/52 (73) 95 02/04/18 17:26 63 30 75 02/04/18 17:00 30 Mechanical Ventilator 85 02/04/18 17:00 64 30 105/57 (73) 94 02/04/18 16:30 66 30 107/53 (71) 95 02/04/18 16:00 99.2 66 30 108/55 (72) 95 02/04/18 16:00 75 02/04/18 16:00 30 Mechanical Ventilator 85 02/04/18 16:00 Mechanical Ventilator 02/04/18 16:00 66 02/04/18 15:30 67 30 107/48 (67) 94 02/04/18 15:00 30 Mechanical Ventilator 85 02/04/18 15:00 63 30 110/51 (70) 95 02/04/18 14:50 66 30 75 02/04/18 14:30 67 30 102/52 (69) 97 18 14:00 30 Mechanical Ventilator 85 02/04/18 14:00 62 30 105/52 (69) 95 18 13:30 65 30 119/51 (73) 95 02/04/18 13:18 68 30 95 Mechanical Ventilator 85 02/04/18 13:09 85 02/04/18 13:08 62 30 96 Mechanical Ventilator 85 02/04/18 13:06 62 30 80 02/04/18 13:00 30 Mechanical Ventilator 85 02/04/18 13:00 65 30 111/54 (73) 95 Intake and Output 02/04/18 02/05/18 18:59 06:59 Intake Total 1151 ml 1051 ml Output Total 550 ml 670 ml Balance 601 ml 381 ml Free Water 100 ml IV Total 451 ml 451 ml Tube Feeding 600 ml 600 ml Output Urine Total 550 ml 670 ml Laboratory Tests 02/05/18 09:05: White Blood Count 14.2H, Red Blood Count 3.07L, Hemoglobin 9.6L, Hematocrit 29.3L, Mean Corpuscular Volume 96, Mean Corpuscular Hemoglobin 31.3H, Mean Corpuscular Hemoglobin Concent 32.7, Red Cell Distribution Width 13.9, Platelet Count 237, Mean Platelet Volume 7.4, Neutrophils (%) (Auto) 84.9H, Lymphocytes ( %) (Auto) 7.3L, Monocytes (%) (Auto) 5.8, Eosinophils (%) (Auto) 1.4, Basophils (%) (Auto) 0.6, Sodium Level 148H, Potassium Level 4.0, Chloride Level 110H, Carbon Dioxide Level 35H, Anion Gap 3L, Blood Urea Nitrogen 31H, Creatinine 0.9 , Estimat Glomerular Filtration Rate , Glucose Level 128H, Calcium Level 7.8L, Total Bilirubin 0.5, Aspartate Amino Transf (AST/SGOT) 22, Alanine Aminotransferase (ALT/SGPT) 15, Alkaline Phosphatase 63, Total Protein 5.4L, Albumin 1.3L, Globulin 4.1, Albumin/Globulin Ratio 0.3L Height (Feet): 5 Height (Inches): 9.00 Weight (Pounds): 185 Respiratory/Chest: lungs clear Abdomen: soft Edwin Corrigan MD Feb 05, 2018 12:53
--- NOTE | 2018-02-05 13:36 | Nephrology Progress Note ---
Assessment/Plan Problem List: (1) OLEG (acute kidney injury) Assessment: resolved (2) Abnormal LFTs (3) Lactic acid acidosis (4) UTI (urinary tract infection) (5) Respiratory disorder with ventilator dependence (6) Pulmonary fibrosis Assessment Acute renal failure, resolved high K resolved Pneumonia / Sepsis / Hypoxia / UTI HypoAlbuminemia / Proteinuria Acute respiratory failure Pulmonary fibrosis Lactic acidosis Plan Pulm support / on vent IV antibiotics Watch electrolytes Gastric support Per orders Subjective ROS Limited/Unobtainable: Yes Objective Objective Last 24 Hour Vital Signs Date Time Temp Pulse Resp B/P (MAP) Pulse Ox O2 Delivery O2 Flow Rate FiO2 02/05/18 13:00 65 30 103/58 (73) 94 02/05/18 12:55 72 30 94 Mechanical Ventilator 75 02/05/18 12:46 75 02/05/18 12:45 71 30 94 Mechanical Ventilator 75 02/05/18 12:43 71 30 75 02/05/18 12:00 Mechanical Ventilator Mechanical Ventilator 02/05/18 12:00 75 02/05/18 12:00 98.7 70 30 134/64 (87) 92 02/05/18 12:00 Mechanical Ventilator 75 02/05/18 12:00 68 02/05/18 11:00 68 30 133/72 (92) 96 02/05/18 11:00 30 Mechanical Ventilator 75 02/05/18 10:58 72 30 75 02/05/18 10:00 61 30 105/57 (73) 91 02/05/18 10:00 31 Mechanical Ventilator 75 02/05/18 09:13 69 106/54 02/05/18 09:00 30 Mechanical Ventilator 75 02/05/18 09:00 60 30 113/58 (76) 94 02/05/18 08:51 67 30 75 02/05/18 08:00 Mechanical Ventilator Mechanical Ventilator 02/05/18 08:00 98.8 67 30 105/54 (71) 94 02/05/18 08:00 62 02/05/18 08:00 75 02/05/18 08:00 30 Mechanical Ventilator 75 02/05/18 07:23 72 30 94 Mechanical Ventilator 75 02/05/18 07:15 75 02/05/18 07:13 69 30 92 Mechanical Ventilator 75 02/05/18 07:06 66 30 75 02/05/18 07:00 64 30 105/50 (68) 91 02/05/18 07:00 30 Mechanical Ventilator 75 02/05/18 06:30 66 30 113/52 (72) 91 02/05/18 06:00 30 Mechanical Ventilator 75 02/05/18 06:00 71 30 123/56 (78) 91 18 05:47 30 75 18 05:30 71 30 75 18 05:30 69 29 105/64 (78) 92 02/05/18 05:00 73 27 135/54 (81) 91 02/05/18 05:00 27 Mechanical Ventilator 75 02/05/18 04:30 64 30 102/51 (68) 94 02/05/18 04:00 98.6 66 30 104/49 (67) 94 02/05/18 04:00 30 Mechanical Ventilator 75 02/05/18 04:00 Mechanical Ventilator 02/05/18 04:00 75 02/05/18 03:30 69 30 99/51 (67) 94 02/05/18 03:28 62 31 75 02/05/18 03:06 67 02/05/18 03:00 70 23 113/50 (71) 90 02/05/18 03:00 23 Mechanical Ventilator 75 02/05/18 02:30 70 25 122/61 (81) 90 02/05/18 02:00 68 27 111/52 (71) 91 02/05/18 02:00 27 Mechanical Ventilator 75 02/05/18 01:30 63 30 101/48 (65) 91 02/05/18 01:24 75 02/05/18 01:24 60 30 96 Mechanical Ventilator 75 02/05/18 01:13 66 30 96 Mechanical Ventilator 75 02/05/18 01:10 69 30 75 02/05/18 01:00 62 30 106/47 (66) 90 18 01:00 30 Mechanical Ventilator 75 02/05/18 00:30 63 30 105/64 (78) 91 02/05/18 00:00 Mechanical Ventilator 02/05/18 00:00 98.5 61 30 99/49 (66) 95 02/05/18 00:00 30 Mechanical Ventilator 75 02/04/18 23:30 62 30 99/43 (61) 95 02/04/18 23:01 61 30 75 02/04/18 23:00 63 30 90/47 (61) 94 12/15/18 23:00 30 Mechanical Ventilator 75 18 22:59 68 02/04/18 22:30 61 30 93/44 (60) 94 18 22:00 30 Mechanical Ventilator 75 18 22:00 62 30 100/47 (64) 92 18 21:30 68 25 112/53 (72) 90 02/04/18 21:24 63 30 75 02/04/18 21:00 31 Mechanical Ventilator 75 02/04/18 21:00 81 31 147/63 (91) 91 02/04/18 20:52 79 146/59 02/04/18 20:30 79 22 146/59 (88) 94 02/04/18 20:00 75 02/04/18 20:00 98.9 74 18 132/78 (96) 93 02/04/18 20:00 18 Mechanical Ventilator 75 02/04/18 20:00 Mechanical Ventilator 02/04/18 19:34 75 02/04/18 19:34 71 30 95 Mechanical Ventilator 75 02/04/18 19:30 76 16 118/53 (74) 92 02/04/18 19:24 21 Mechanical Ventilator 75 02/04/18 19:20 72 30 75 02/04/18 19:16 70 30 95 Mechanical Ventilator 75 02/04/18 19:10 73 02/04/18 19:00 21 Mechanical Ventilator 75 02/04/18 19:00 71 21 129/54 (79) 96 02/04/18 18:30 68 30 115/57 (76) 95 18 18:00 66 30 118/48 (71) 95 18 18:00 30 Mechanical Ventilator 85 18 17:30 65 30 115/52 (73) 95 18 17:26 63 30 75 18 17:00 30 Mechanical Ventilator 85 18 17:00 64 30 105/57 (73) 94 18 16:30 66 30 107/53 (71) 95 18 16:00 99.2 66 30 108/55 (72) 95 02/04/18 16:00 75 18 16:00 30 Mechanical Ventilator 85 18 16:00 Mechanical Ventilator 12/15/18 16:00 66 12/15/18 15:30 67 30 107/48 (67) 94 02/04/18 15:00 30 Mechanical Ventilator 85 02/04/18 15:00 63 30 110/51 (70) 95 02/04/18 14:50 66 30 75 02/04/18 14:30 67 30 102/52 (69) 97 02/04/18 14:00 30 Mechanical Ventilator 85 02/04/18 14:00 62 30 105/52 (69) 95 Intake and Output 02/04/18 02/05/18 18:59 06:59 Intake Total 1151 ml 1051 ml Output Total 550 ml 670 ml Balance 601 ml 381 ml Free Water 100 ml IV Total 451 ml 451 ml Tube Feeding 600 ml 600 ml Output Urine Total 550 ml 670 ml Laboratory Tests 02/05/18 09:05: White Blood Count 14.2H, Red Blood Count 3.07L, Hemoglobin 9.6L, Hematocrit 29.3L, Mean Corpuscular Volume 96, Mean Corpuscular Hemoglobin 31.3H, Mean Corpuscular Hemoglobin Concent 32.7, Red Cell Distribution Width 13.9, Platelet Count 237, Mean Platelet Volume 7.4, Neutrophils (%) (Auto) 84.9H, Lymphocytes ( %) (Auto) 7.3L, Monocytes (%) (Auto) 5.8, Eosinophils (%) (Auto) 1.4, Basophils (%) (Auto) 0.6, Sodium Level 148H, Potassium Level 4.0, Chloride Level 110H, Carbon Dioxide Level 35H, Anion Gap 3L, Blood Urea Nitrogen 31H, Creatinine 0.9 , Estimat Glomerular Filtration Rate , Glucose Level 128H, Calcium Level 7.8L, Total Bilirubin 0.5, Aspartate Amino Transf (AST/SGOT) 22, Alanine Aminotransferase (ALT/SGPT) 15, Alkaline Phosphatase 63, Total Protein 5.4L, Albumin 1.3L, Globulin 4.1, Albumin/Globulin Ratio 0.3L Height (Feet): 5 Height (Inches): 9.00 Weight (Pounds): 185 EENT: other - on vent Cardiovascular: normal rate Abdomen: soft Objective no change Juan C Mclaughlin MD Feb 05, 2018 13:36
[2018-02-05] MEDS: D5 1/2NS 1,000 ML IV SCH (14:14)
--- NOTE | 2018-02-05 15:17 | General Progress Note ---
Assessment/Plan Assessment/Plan Assessment/Plan Problems: (1) Constipation ICD Codes: K59.00 - Constipation, unspecified SNOMED: 40899806 (2) Gastroparesis ICD Codes: K31.84 - Gastroparesis SNOMED: 570918099 (3) Abnormal LFTs ICD Codes: R94.5 - Abnormal results of liver function studies SNOMED: 403580016 Status: unchanged Assessment/Plan hepatitis panel reviewed >> active Hep A infection anemia work up reviewed >> folate and iron deficiency NGT present recent KUB >> no acute findings ET tube on mech vent Dysphagia NGTFs per RD to goal, PEG if necessary low dose erythromycin if needed for GI motility OB stool r/o GI bleed uncollected monitor H&H, prn transfusions constipation - bowel regime >> lactulose TID >> had BM yesterday ppi folate fu labs Subjective Allergies: Coded Allergies: No Known Allergies (Unverified , 01/24/18) Subjective seen in ICU non communicative intubated confused restrained d/w community health nurse staff Tolerating TF Objective Last 24 Hour Vital Signs Date Time Temp Pulse Resp B/P (MAP) Pulse Ox O2 Delivery O2 Flow Rate FiO2 02/05/18 15:00 66 30 128/60 (82) 97 02/05/18 15:00 30 Mechanical Ventilator 75 02/05/18 14:00 30 Mechanical Ventilator 75 02/05/18 14:00 65 30 107/54 (71) 93 02/05/18 13:00 65 30 103/58 (73) 94 02/05/18 12:55 72 30 94 Mechanical Ventilator 75 02/05/18 12:46 75 02/05/18 12:45 71 30 94 Mechanical Ventilator 75 02/05/18 12:43 71 30 75 02/05/18 12:00 Mechanical Ventilator Mechanical Ventilator 02/05/18 12:00 75 02/05/18 12:00 98.7 70 30 134/64 (87) 92 02/05/18 12:00 Mechanical Ventilator 75 02/05/18 12:00 68 02/05/18 11:00 68 30 133/72 (92) 96 02/05/18 11:00 30 Mechanical Ventilator 75 02/05/18 10:58 72 30 75 02/05/18 10:00 61 30 105/57 (73) 91 02/05/18 10:00 31 Mechanical Ventilator 75 02/05/18 09:13 69 106/54 02/05/18 09:00 30 Mechanical Ventilator 75 02/05/18 09:00 60 30 113/58 (76) 94 02/05/18 08:51 67 30 75 02/05/18 08:00 Mechanical Ventilator Mechanical Ventilator 02/05/18 08:00 98.8 67 30 105/54 (71) 94 02/05/18 08:00 62 02/05/18 08:00 75 02/05/18 08:00 30 Mechanical Ventilator 75 02/05/18 07:23 72 30 94 Mechanical Ventilator 75 02/05/18 07:15 75 02/05/18 07:13 69 30 92 Mechanical Ventilator 75 02/05/18 07:06 66 30 75 02/05/18 07:00 64 30 105/50 (68) 91 02/05/18 07:00 30 Mechanical Ventilator 75 02/05/18 06:30 66 30 113/52 (72) 91 02/05/18 06:00 30 Mechanical Ventilator 75 02/05/18 06:00 71 30 123/56 (78) 91 02/05/18 05:47 30 75 02/05/18 05:30 71 30 75 18 05:30 69 29 105/64 (78) 92 02/05/18 05:00 73 27 135/54 (81) 91 02/05/18 05:00 27 Mechanical Ventilator 75 02/05/18 04:30 64 30 102/51 (68) 94 18 04:00 98.6 66 30 104/49 (67) 94 02/05/18 04:00 30 Mechanical Ventilator 75 02/05/18 04:00 Mechanical Ventilator 02/05/18 04:00 75 02/05/18 03:30 69 30 99/51 (67) 94 18 03:28 62 31 75 02/05/18 03:06 67 18 03:00 70 23 113/50 (71) 90 18 03:00 23 Mechanical Ventilator 75 18 02:30 70 25 122/61 (81) 90 18 02:00 68 27 111/52 (71) 91 02/05/18 02:00 27 Mechanical Ventilator 75 02/05/18 01:30 63 30 101/48 (65) 91 02/05/18 01:24 75 02/05/18 01:24 60 30 96 Mechanical Ventilator 75 02/05/18 01:13 66 30 96 Mechanical Ventilator 75 02/05/18 01:10 69 30 75 18 01:00 62 30 106/47 (66) 90 02/05/18 01:00 30 Mechanical Ventilator 75 02/05/18 00:30 63 30 105/64 (78) 91 02/05/18 00:00 Mechanical Ventilator 02/05/18 00:00 98.5 61 30 99/49 (66) 95 02/05/18 00:00 30 Mechanical Ventilator 75 02/04/18 23:30 62 30 99/43 (61) 95 02/04/18 23:01 61 30 75 02/04/18 23:00 63 30 90/47 (61) 94 02/04/18 23:00 30 Mechanical Ventilator 75 02/04/18 22:59 68 02/04/18 22:30 61 30 93/44 (60) 94 02/04/18 22:00 30 Mechanical Ventilator 75 02/04/18 22:00 62 30 100/47 (64) 92 02/04/18 21:30 68 25 112/53 (72) 90 02/04/18 21:24 63 30 75 02/04/18 21:00 31 Mechanical Ventilator 75 02/04/18 21:00 81 31 147/63 (91) 91 02/04/18 20:52 79 146/59 02/04/18 20:30 79 22 146/59 (88) 94 02/04/18 20:00 75 02/04/18 20:00 98.9 74 18 132/78 (96) 93 02/04/18 20:00 18 Mechanical Ventilator 75 02/04/18 20:00 Mechanical Ventilator 02/04/18 19:34 75 02/04/18 19:34 71 30 95 Mechanical Ventilator 75 18 19:30 76 16 118/53 (74) 92 02/04/18 19:24 21 Mechanical Ventilator 75 18 19:20 72 30 75 18 19:16 70 30 95 Mechanical Ventilator 75 18 19:10 73 18 19:00 21 Mechanical Ventilator 75 18 19:00 71 21 129/54 (79) 96 02/04/18 18:30 68 30 115/57 (76) 95 02/04/18 18:00 66 30 118/48 (71) 95 18 18:00 30 Mechanical Ventilator 85 02/04/18 17:30 65 30 115/52 (73) 95 02/04/18 17:26 63 30 75 02/04/18 17:00 30 Mechanical Ventilator 85 02/04/18 17:00 64 30 105/57 (73) 94 18 16:30 66 30 107/53 (71) 95 02/04/18 16:00 99.2 66 30 108/55 (72) 95 02/04/18 16:00 75 02/04/18 16:00 30 Mechanical Ventilator 85 02/04/18 16:00 Mechanical Ventilator 02/04/18 16:00 66 02/04/18 15:30 67 30 107/48 (67) 94 Intake and Output 02/04/18 02/05/18 18:59 06:59 Intake Total 1151 ml 1051 ml Output Total 550 ml 670 ml Balance 601 ml 381 ml Free Water 100 ml IV Total 451 ml 451 ml Tube Feeding 600 ml 600 ml Output Urine Total 550 ml 670 ml Laboratory Tests 02/05/18 09:05: White Blood Count 14.2H, Red Blood Count 3.07L, Hemoglobin 9.6L, Hematocrit 29.3L, Mean Corpuscular Volume 96, Mean Corpuscular Hemoglobin 31.3H, Mean Corpuscular Hemoglobin Concent 32.7, Red Cell Distribution Width 13.9, Platelet Count 237, Mean Platelet Volume 7.4, Neutrophils (%) (Auto) 84.9H, Lymphocytes ( %) (Auto) 7.3L, Monocytes (%) (Auto) 5.8, Eosinophils (%) (Auto) 1.4, Basophils (%) (Auto) 0.6, Sodium Level 148H, Potassium Level 4.0, Chloride Level 110H, Carbon Dioxide Level 35H, Anion Gap 3L, Blood Urea Nitrogen 31H, Creatinine 0.9 , Estimat Glomerular Filtration Rate , Glucose Level 128H, Calcium Level 7.8L, Total Bilirubin 0.5, Aspartate Amino Transf (AST/SGOT) 22, Alanine Aminotransferase (ALT/SGPT) 15, Alkaline Phosphatase 63, Total Protein 5.4L, Albumin 1.3L, Globulin 4.1, Albumin/Globulin Ratio 0.3L Height (Feet): 5 Height (Inches): 9.00 Weight (Pounds): 185 Objective WDWN NCAT supple (+) NGT, ETT CTA RRR abd soft ND no edema Reggie Paredes MD Feb 05, 2018 15:17
--- NOTE | 2018-02-05 16:11 | Cardiac Electrophysiology PN ---
Assessment/Plan Assessment/Plan 1. Troponin Leak. The levels are flat. No CP Due to the respiratory failure and azotemia. Echo normal EF 2. Respiratory failure, due to PNA and CHF. The patient is on the ventilator. Antibiotic per ID Failed weaning. Likely needs Tracheostomy 3. Hypokalemia, potassium was replaced. 4. Azotemia and hypernatremia.D51/2 ns at 25 cc/hr. FU Dr Mclaughlin 5. Elevated bilirubin of 2.3. Down to 1.1 DW RN Subjective Subjective In ICU on the Vent and Fentanyl drip 80 mcg In SR with 75% Fio2 Objective Last 24 Hour Vital Signs Date Time Temp Pulse Resp B/P (MAP) Pulse Ox O2 Delivery O2 Flow Rate FiO2 02/05/18 16:00 98.7 106 25 138/52 (80) 95 02/05/18 15:06 68 30 75 02/05/18 15:00 66 30 128/60 (82) 97 02/05/18 15:00 30 Mechanical Ventilator 75 02/05/18 14:00 30 Mechanical Ventilator 75 02/05/18 14:00 65 30 107/54 (71) 93 02/05/18 13:00 65 30 103/58 (73) 94 02/05/18 12:55 72 30 94 Mechanical Ventilator 75 02/05/18 12:46 75 02/05/18 12:45 71 30 94 Mechanical Ventilator 75 02/05/18 12:43 71 30 75 02/05/18 12:00 Mechanical Ventilator Mechanical Ventilator 02/05/18 12:00 75 02/05/18 12:00 98.7 70 30 134/64 (87) 92 02/05/18 12:00 Mechanical Ventilator 75 02/05/18 12:00 68 02/05/18 11:00 68 30 133/72 (92) 96 02/05/18 11:00 30 Mechanical Ventilator 75 02/05/18 10:58 72 30 75 02/05/18 10:00 61 30 105/57 (73) 91 02/05/18 10:00 31 Mechanical Ventilator 75 02/05/18 09:13 69 106/54 02/05/18 09:00 30 Mechanical Ventilator 75 02/05/18 09:00 60 30 113/58 (76) 94 02/05/18 08:51 67 30 75 02/05/18 08:00 Mechanical Ventilator Mechanical Ventilator 02/05/18 08:00 98.8 67 30 105/54 (71) 94 18 08:00 62 [id number] 08:00 75 18 08:00 30 Mechanical Ventilator 75 02/05/18 07:23 72 30 94 Mechanical Ventilator 75 18 07:15 75 18 07:13 69 30 92 Mechanical Ventilator 75 02/05/18 07:06 66 30 75 02/05/18 07:00 64 30 105/50 (68) 91 18 07:00 30 Mechanical Ventilator 75 02/05/18 06:30 66 30 113/52 (72) 91 18 06:00 30 Mechanical Ventilator 75 02/05/18 06:00 71 30 123/56 (78) 91 02/05/18 05:47 30 75 02/05/18 05:30 71 30 75 02/05/18 05:30 69 29 105/64 (78) 92 02/05/18 05:00 73 27 135/54 (81) 91 02/05/18 05:00 27 Mechanical Ventilator 75 02/05/18 04:30 64 30 102/51 (68) 94 18 04:00 98.6 66 30 104/49 (67) 94 18 04:00 30 Mechanical Ventilator 75 02/05/18 04:00 Mechanical Ventilator 02/05/18 04:00 75 02/05/18 03:30 69 30 99/51 (67) 94 18 03:28 62 31 75 02/05/18 03:06 67 02/05/18 03:00 70 23 113/50 (71) 90 18 03:00 23 Mechanical Ventilator 75 02/05/18 02:30 70 25 122/61 (81) 90 18 02:00 68 27 111/52 (71) 91 18 02:00 27 Mechanical Ventilator 75 02/05/18 01:30 63 30 101/48 (65) 91 18 01:24 75 18 01:24 60 30 96 Mechanical Ventilator 75 02/05/18 01:13 66 30 96 Mechanical Ventilator 75 02/05/18 01:10 69 30 75 18 01:00 62 30 106/47 (66) 90 12/16/18 01:00 30 Mechanical Ventilator 75 18 00:30 63 30 105/64 (78) 91 02/05/18 00:00 Mechanical Ventilator 18 00:00 98.5 61 30 99/49 (66) 95 1618 00:00 30 Mechanical Ventilator 75 18 23:30 62 30 99/43 (61) 95 02/04/18 23:01 61 30 75 18 23:00 63 30 90/47 (61) 94 18 23:00 30 Mechanical Ventilator 75 18 22:59 68 18 22:30 61 30 93/44 (60) 94 02/04/18 22:00 30 Mechanical Ventilator 75 02/04/18 22:00 62 30 100/47 (64) 92 18 21:30 68 25 112/53 (72) 90 02/04/18 21:24 63 30 75 02/04/18 21:00 31 Mechanical Ventilator 75 02/04/18 21:00 81 31 147/63 (91) 91 02/04/18 20:52 79 146/59 02/04/18 20:30 79 22 146/59 (88) 94 02/04/18 20:00 75 02/04/18 20:00 98.9 74 18 132/78 (96) 93 02/04/18 20:00 18 Mechanical Ventilator 75 02/04/18 20:00 Mechanical Ventilator 02/04/18 19:34 75 02/04/18 19:34 71 30 95 Mechanical Ventilator 75 02/04/18 19:30 76 16 118/53 (74) 92 18 19:24 21 Mechanical Ventilator 75 18 19:20 72 30 75 18 19:16 70 30 95 Mechanical Ventilator 75 02/04/18 19:10 73 02/04/18 19:00 21 Mechanical Ventilator 75 18 19:00 71 21 129/54 (79) 96 18 18:30 68 30 115/57 (76) 95 18 18:00 66 30 118/48 (71) 95 18 18:00 30 Mechanical Ventilator 85 02/04/18 17:30 65 30 115/52 (73) 95 02/04/18 17:26 63 30 75 02/04/18 17:00 30 Mechanical Ventilator 85 02/04/18 17:00 64 30 105/57 (73) 94 02/04/18 16:30 66 30 107/53 (71) 95 Intake and Output 18 02/05/18 18:59 06:59 Intake Total 1151 ml 1051 ml Output Total 550 ml 670 ml Balance 601 ml 381 ml Free Water 100 ml IV Total 451 ml 451 ml Tube Feeding 600 ml 600 ml Output Urine Total 550 ml 670 ml Laboratory Tests Test 02/05/18 09:05 White Blood Count 14.2 K/UL (4.8-10.8) H Red Blood Count 3.07 M/UL (4.70-6.10) L Hemoglobin 9.6 G/DL (14.2-18.0) L Hematocrit 29.3 % (42.0-52.0) L Mean Corpuscular Volume 96 FL (80-99) Mean Corpuscular Hemoglobin 31.3 PG (27.0-31.0) H Mean Corpuscular Hemoglobin Concent 32.7 G/DL (32.0-36.0) Red Cell Distribution Width 13.9 % (11.6-14.8) Platelet Count 237 K/UL (150-450) Mean Platelet Volume 7.4 FL (6.5-10.1) Neutrophils (%) (Auto) 84.9 % (45.0-75.0) H Lymphocytes (%) (Auto) 7.3 % (20.0-45.0) L Monocytes (%) (Auto) 5.8 % (1.0-10.0) Eosinophils (%) (Auto) 1.4 % (0.0-3.0) Basophils (%) (Auto) 0.6 % (0.0-2.0) Sodium Level 148 MMOL/L (136-145) H Potassium Level 4.0 MMOL/L (3.5-5.1) Chloride Level 110 MMOL/L (98-107) H Carbon Dioxide Level 35 MMOL/L (21-32) H Anion Gap 3 mmol/L (5-15) L Blood Urea Nitrogen 31 mg/dL (7-18) H Creatinine 0.9 MG/DL (0.55-1.30) Estimat Glomerular Filtration Rate mL/min (>60) Glucose Level 128 MG/DL (74-106) H Calcium Level 7.8 MG/DL (8.5-10.1) L Total Bilirubin 0.5 MG/DL (0.2-1.0) Aspartate Amino Transf (AST/SGOT) 22 U/L (15-37) Alanine Aminotransferase (ALT/SGPT) 15 U/L (12-78) Alkaline Phosphatase 63 U/L (46-116) Total Protein 5.4 G/DL (6.4-8.2) L Albumin 1.3 G/DL (3.4-5.0) L Globulin 4.1 g/dL Albumin/Globulin Ratio 0.3 (1.0-2.7) L Objective HEAD AND NECK: Orally intubated. LUNGS: Coarse rhonchi CARDIOVASCULAR: Regular S1 and S2 with no murmur. ABDOMEN: Soft. EXTREMITIES: No pitting edema, Josep Brar MD Feb 05, 2018 16:11
--- NOTE | 2018-02-05 17:01 | General Surgery Progress Note ---
General Surgery-Progress Note Subjective Additional Comments unable to wean from vent Objective Last 24 Hour Vital Signs Date Time Temp Pulse Resp B/P (MAP) Pulse Ox O2 Delivery O2 Flow Rate FiO2 02/05/18 16:00 98.7 106 25 138/52 (80) 95 18 16:00 75 02/05/18 16:00 30 Mechanical Ventilator 02/05/18 16:00 68 02/05/18 16:00 Mechanical Ventilator Mechanical Ventilator 02/05/18 15:13 20 Mechanical Ventilator 94 02/05/18 15:06 68 30 75 02/05/18 15:00 66 30 128/60 (82) 97 02/05/18 15:00 30 Mechanical Ventilator 75 02/05/18 15:00 17 Mechanical Ventilator 75 02/05/18 14:00 30 Mechanical Ventilator 75 02/05/18 14:00 65 30 107/54 (71) 93 02/05/18 13:00 65 30 103/58 (73) 94 02/05/18 12:55 72 30 94 Mechanical Ventilator 75 02/05/18 12:46 75 02/05/18 12:45 71 30 94 Mechanical Ventilator 75 02/05/18 12:43 71 30 75 02/05/18 12:00 Mechanical Ventilator Mechanical Ventilator 02/05/18 12:00 75 02/05/18 12:00 98.7 70 30 134/64 (87) 92 02/05/18 12:00 Mechanical Ventilator 75 02/05/18 12:00 68 02/05/18 11:00 68 30 133/72 (92) 96 02/05/18 11:00 30 Mechanical Ventilator 75 02/05/18 10:58 72 30 75 02/05/18 10:00 61 30 105/57 (73) 91 18 10:00 31 Mechanical Ventilator 75 02/05/18 09:13 69 106/54 02/05/18 09:00 30 Mechanical Ventilator 75 02/05/18 09:00 60 30 113/58 (76) 94 02/05/18 08:51 67 30 75 02/05/18 08:00 Mechanical Ventilator Mechanical Ventilator 02/05/18 08:00 98.8 67 30 105/54 (71) 94 02/05/18 08:00 62 02/05/18 08:00 75 02/05/18 08:00 30 Mechanical Ventilator 75 12/16/18 07:23 72 30 94 Mechanical Ventilator 75 02/05/18 07:15 75 02/05/18 07:13 69 30 92 Mechanical Ventilator 75 02/05/18 07:06 66 30 75 02/05/18 07:00 64 30 105/50 (68) 91 02/05/18 07:00 30 Mechanical Ventilator 75 02/05/18 06:30 66 30 113/52 (72) 91 18 06:00 30 Mechanical Ventilator 75 18 06:00 71 30 123/56 (78) 91 18 05:47 30 75 18 05:30 71 30 75 02/05/18 05:30 69 29 105/64 (78) 92 02/05/18 05:00 73 27 135/54 (81) 91 02/05/18 05:00 27 Mechanical Ventilator 75 02/05/18 04:30 64 30 102/51 (68) 94 02/05/18 04:00 98.6 66 30 104/49 (67) 94 02/05/18 04:00 30 Mechanical Ventilator 75 02/05/18 04:00 Mechanical Ventilator 02/05/18 04:00 75 18 03:30 69 30 99/51 (67) 94 18 03:28 62 31 75 02/05/18 03:06 67 02/05/18 03:00 70 23 113/50 (71) 90 18 03:00 23 Mechanical Ventilator 75 18 02:30 70 25 122/61 (81) 90 02/05/18 02:00 68 27 111/52 (71) 91 02/05/18 02:00 27 Mechanical Ventilator 75 18 01:30 63 30 101/48 (65) 91 18 01:24 75 18 01:24 60 30 96 Mechanical Ventilator 75 02/05/18 01:13 66 30 96 Mechanical Ventilator 75 18 01:10 69 30 75 02/05/18 01:00 62 30 106/47 (66) 90 18 01:00 30 Mechanical Ventilator 75 18 00:30 63 30 105/64 (78) 91 02/05/18 00:00 Mechanical Ventilator 02/05/18 00:00 98.5 61 30 99/49 (66) 95 02/05/18 00:00 30 Mechanical Ventilator 75 02/04/18 23:30 62 30 99/43 (61) 95 02/04/18 23:01 61 30 75 02/04/18 23:00 63 30 90/47 (61) 94 02/04/18 23:00 30 Mechanical Ventilator 75 18 22:59 68 02/04/18 22:30 61 30 93/44 (60) 94 02/04/18 22:00 30 Mechanical Ventilator 75 02/04/18 22:00 62 30 100/47 (64) 92 02/04/18 21:30 68 25 112/53 (72) 90 02/04/18 21:24 63 30 75 02/04/18 21:00 31 Mechanical Ventilator 75 02/04/18 21:00 81 31 147/63 (91) 91 02/04/18 20:52 79 146/59 02/04/18 20:30 79 22 146/59 (88) 94 02/04/18 20:00 75 02/04/18 20:00 98.9 74 18 132/78 (96) 93 02/04/18 20:00 18 Mechanical Ventilator 75 02/04/18 20:00 Mechanical Ventilator 02/04/18 19:34 75 02/04/18 19:34 71 30 95 Mechanical Ventilator 75 02/04/18 19:30 76 16 118/53 (74) 92 02/04/18 19:24 21 Mechanical Ventilator 75 02/04/18 19:20 72 30 75 02/04/18 19:16 70 30 95 Mechanical Ventilator 75 02/04/18 19:10 73 02/04/18 19:00 21 Mechanical Ventilator 75 02/04/18 19:00 71 21 129/54 (79) 96 02/04/18 18:30 68 30 115/57 (76) 95 18 18:00 66 30 118/48 (71) 95 18 18:00 30 Mechanical Ventilator 85 02/04/18 17:30 65 30 115/52 (73) 95 02/04/18 17:26 63 30 75 I&O Intake and Output 02/04/18 02/05/18 18:59 06:59 Intake Total 1151 ml 1051 ml Output Total 550 ml 670 ml Balance 601 ml 381 ml Free Water 100 ml IV Total 451 ml 451 ml Tube Feeding 600 ml 600 ml Output Urine Total 550 ml 670 ml Dressing: other Wound: other Drains: other Cardiovascular: RSR Respiratory: decreased breath sounds Abdomen: soft, distended, present bowel sounds Extremities: other Laboratory Tests Test 02/05/18 09:05 White Blood Count 14.2 K/UL (4.8-10.8) H Red Blood Count 3.07 M/UL (4.70-6.10) L Hemoglobin 9.6 G/DL (14.2-18.0) L Hematocrit 29.3 % (42.0-52.0) L Mean Corpuscular Volume 96 FL (80-99) Mean Corpuscular Hemoglobin 31.3 PG (27.0-31.0) H Mean Corpuscular Hemoglobin Concent 32.7 G/DL (32.0-36.0) Red Cell Distribution Width 13.9 % (11.6-14.8) Platelet Count 237 K/UL (150-450) Mean Platelet Volume 7.4 FL (6.5-10.1) Neutrophils (%) (Auto) 84.9 % (45.0-75.0) H Lymphocytes (%) (Auto) 7.3 % (20.0-45.0) L Monocytes (%) (Auto) 5.8 % (1.0-10.0) Eosinophils (%) (Auto) 1.4 % (0.0-3.0) Basophils (%) (Auto) 0.6 % (0.0-2.0) Sodium Level 148 MMOL/L (136-145) H Potassium Level 4.0 MMOL/L (3.5-5.1) Chloride Level 110 MMOL/L (98-107) H Carbon Dioxide Level 35 MMOL/L (21-32) H Anion Gap 3 mmol/L (5-15) L Blood Urea Nitrogen 31 mg/dL (7-18) H Creatinine 0.9 MG/DL (0.55-1.30) Estimat Glomerular Filtration Rate mL/min (>60) Glucose Level 128 MG/DL (74-106) H Calcium Level 7.8 MG/DL (8.5-10.1) L Total Bilirubin 0.5 MG/DL (0.2-1.0) Aspartate Amino Transf (AST/SGOT) 22 U/L (15-37) Alanine Aminotransferase (ALT/SGPT) 15 U/L (12-78) Alkaline Phosphatase 63 U/L (46-116) Total Protein 5.4 G/DL (6.4-8.2) L Albumin 1.3 G/DL (3.4-5.0) L Globulin 4.1 g/dL Albumin/Globulin Ratio 0.3 (1.0-2.7) L Plan Problems: (1) Decubitus ulcer of sacral region, stage 3 Assessment & Plan: Stage III full thickness pressure injury sacrum present on admission (L)2cm x (W)1.8cm ,wound bed with 80% yellow slough ,20% granular Borders slightly macerated. Non-blanching erythema without elevation in skin temp, or induration periwound. NO odor noted. Abrasions noted to R elbow (L)3.2cm x (W)1.9cm.Wound with Biofilm ,erythema al; lynn borders .Periwound clean and intact. Abrasion noted to L elbow(L)5.5cm x (W)1.6cm ,biofim noted to wound bed .erythema along borders .Periwound without erythema or elevation in skin temp. Abrasion lateral L knee with dry scab. Abrasion medial R knee with dry scab. Bilat heels boggy with non-blanching erythema. Non-tender when palpated. Pt repositioned with pillow on his side but restless and repositioned self on back. given critical condition will continue with maximal efforts to reduce worsening wounds as in this condition may deteriorate Tx.Plan: Cleanse R and L elbows with Saline.Apply Silvasorb Gel to both elbows .Cover with Optifoam drsg .Change every 3 Days and prn. Cleanse Sacral Pressure injury with Saline.Apply Therahoney .Cavilon periwound.Cover with Optifoam drsg Daily and prn. Apply Cavilon to Both heels.Cover with Optifoam drsg .Change Every 7 days and prn. Cavilon to abrasions R and L lower ext.Cover with Optifoam change every 7 days and prn. Off-load heels with pillow. Reposition at least every 2 hours or as tolerated. Surface support mattress. (2) Abnormal LFTs Assessment & Plan: US reviewed - absent GB dilated ducts CT reviewed - dilated duct without notable obstruction LFT's noted and elevated t bili trending down no jaundice AST/ALT nml Alk phos nml leukocytosis trending down -no acute surgical intervention necessary -t bili and d bili correlate. unlikely obstructive at this time. especially with history of cholecystectomy prior -trend labs thank you (3) Severe sepsis Assessment & Plan: not weaning off vent easy. will likely require senior living vent support consider Myke Pruett Feb 05, 2018 17:01
[2018-02-05] MEDS: Miralax 17gm pkt NG SCH (21:02)
[2018-02-05] MEDS ORDERED: D5 1/2NS 1000ml IV ONE (21:39)
--- NOTE | 2018-02-05 21:48 | Pulmonolgy Critical Care Note ---
Critical Care - Asmt/Plan Assessment/Plan: Pulmonary CCM Progress Note Critical Care - Asmt/Plan Problems: (1) Pulmonary fibrosis (2) Multifocal pneumonia (3) Respiratory disorder with ventilator dependence (4) Lactic acid acidosis (5) Abnormal LFTs (6) OLEG (acute kidney injury) (7) SIRS (systemic inflammatory response syndrome) (8) UTI (urinary tract infection) Assessment/Plan: ASSESSMENT: The patient is a 77-year-old male, current daily smoker with history of hypertension, back pain, lack of health maintenance, presenting with respiratory illness, bilateral pneumonia, lactic acidosis, abnormal kidney function and renal function likely OLEG, and shock liver. 01/26: Prog hypoxemia, inc WOB, tx'd to ICU, intubated 01/27: Gas exchange better, trops downtrending, LA resolved 01/30: Oxygenation stable, stable on vent PROBLEM LIST: 1. Bilateral parenchymal infiltrates, multilobar pneumonia on top of underlying fibrotic lung disease 2. VDRF 3. Metabolic & respiratory acidosis 4. Likely underlying pulmonary fibrosis and COPD 5. NSTEMI, likely demand ischemia 6. Lactic acidosis - RESOLVED 7. Abnormal creatinine, likely acute kidney injury - IMPROVED 8. Abnormal liver function tests - IMPROVED 9. SIRS 10. History of hypertension. 11. PNEUMONIA 12. Constipation TREATMENT PLAN: Continue ventilatory support/settings reviewed, monitor gas exchange PEEP 7, dec FiO2 to keep SaO2 > 90 and <94 AM ABG RTC and PRN DUOnebs Cefepime (D8), Vanco (D7) per ID, F/U Cx's Cautious TF's, monitor residuals ICU sedation: Fentanyl gtt for RASS - 2, Versed 2 mg IV q4 PRN F/U cardiology recs Monitor volumes and renal function, decreased IVF to 25, lasix 20 IV x 1 now Wound care GI recs, bowel regimen Discuss GOC, FC Px: Hep SQ, H2B D/W family, RN, RT and team CCT 45 Critical Care - Objective Vital Signs Noted Status: awake Condition: critical Lungs: rhonchi Heart: HR/BP stable Abdomen: soft, non-tender, active bowel sounds Extremities: no C/C/E Decubiti: location - sacral Blood Sugars: BS controlled Critical Care - Subjective ROS Limited/Unobtainable: Yes ICU Day: 7 Intubation Day: 7 Interval Events: FiO2 inc 70, PEEP 5 Secretions thin clear Edematous UE . LE Condition: critical IV Access: peripheral - x2 FI02: 70 Vent Support Breath Rate: 30 Vent Support Mode: AC Vent Tidal Volume: 600 Sputum Amount: Moderate PEEP: 5.0 PIP: 34 Fluids: D51/2NS @ 50 Drips: Fent off Tube Feeding Amount: 50 Subjective: IRENE ET-Tube: 7.5 ET Position: 23 Labs: Laboratory Tests Test 02/01/18 04:00 White Blood Count 13.1 K/UL (4.8-10.8) H Red Blood Count 3.41 M/UL (4.70-6.10) L Hemoglobin 10.8 G/DL (14.2-18.0) L Hematocrit 32.6 % (42.0-52.0) L Mean Corpuscular Volume 96 FL (80-99) Mean Corpuscular Hemoglobin 31.6 PG (27.0-31.0) H Mean Corpuscular Hemoglobin Concent 33.1 G/DL (32.0-36.0) Red Cell Distribution Width 13.4 % (11.6-14.8) Platelet Count 207 K/UL (150-450) Mean Platelet Volume 8.8 FL (6.5-10.1) Neutrophils (%) (Auto) % (45.0-75.0) Lymphocytes (%) (Auto) % (20.0-45.0) Monocytes (%) (Auto) % (1.0-10.0) Eosinophils (%) (Auto) % (0.0-3.0) Basophils (%) (Auto) % (0.0-2.0) Sodium Level 148 MMOL/L (136-145) H Potassium Level 3.8 MMOL/L (3.5-5.1) Chloride Level 112 MMOL/L (98-107) H Carbon Dioxide Level 31 MMOL/L (21-32) Anion Gap 5 mmol/L (5-15) Blood Urea Nitrogen 36 mg/dL (7-18) H Creatinine 0.8 MG/DL (0.55-1.30) Estimat Glomerular Filtration Rate mL/min (>60) Glucose Level 125 MG/DL (74-106) H Calcium Level 8.1 MG/DL (8.5-10.1) L Phosphorus Level 3.2 MG/DL (2.5-4.9) Magnesium Level 1.8 MG/DL (1.8-2.4) Total Bilirubin 0.7 MG/DL (0.2-1.0) Aspartate Amino Transf (AST/SGOT) 20 U/L (15-37) Alanine Aminotransferase (ALT/SGPT) 16 U/L (12-78) Alkaline Phosphatase 78 U/L (46-116) Total Protein 5.8 G/DL (6.4-8.2) L Albumin 1.4 G/DL (3.4-5.0) L Globulin 4.4 g/dL Albumin/Globulin Ratio 0.3 (1.0-2.7) L Critical Care - Objective Last 24 Hour Vital Signs Date Time Temp Pulse Resp B/P (MAP) Pulse Ox O2 Delivery O2 Flow Rate FiO2 02/05/18 21:16 84 30 75 18 21:03 76 129/64 02/05/18 20:29 22 Mechanical Ventilator 70 18 19:43 71 31 100 Mechanical Ventilator 75 02/05/18 19:32 75 02/05/18 19:32 73 30 75 02/05/18 19:32 73 30 100 Mechanical Ventilator 75 02/05/18 19:00 30 Mechanical Ventilator 95 18 19:00 66 30 106/52 (70) 97 18 18:00 25 Mechanical Ventilator 97 02/05/18 18:00 77 27 127/60 (82) 97 18 17:00 72 22 120/57 (78) 95 18 17:00 21 Mechanical Ventilator 96 02/05/18 16:58 73 31 75 02/05/18 16:00 98.7 106 25 138/52 (80) 95 18 16:00 75 02/05/18 16:00 30 Mechanical Ventilator 02/05/18 16:00 68 18 16:00 Mechanical Ventilator Mechanical Ventilator 02/05/18 15:13 20 Mechanical Ventilator 94 02/05/18 15:06 68 30 75 18 15:00 66 30 128/60 (82) 97 02/05/18 15:00 30 Mechanical Ventilator 75 18 15:00 17 Mechanical Ventilator 75 02/05/18 14:00 30 Mechanical Ventilator 75 02/05/18 14:00 65 30 107/54 (71) 93 02/05/18 13:00 65 30 103/58 (73) 94 18 12:55 72 30 94 Mechanical Ventilator 75 18 12:46 75 18 12:45 71 30 94 Mechanical Ventilator 75 18 12:43 71 30 75 18 12:00 Mechanical Ventilator Mechanical Ventilator 02/05/18 12:00 75 18 12:00 98.7 70 30 134/64 (87) 92 02/05/18 12:00 Mechanical Ventilator 75 18 12:00 68 02/05/18 11:00 68 30 133/72 (92) 96 18 11:00 30 Mechanical Ventilator 75 02/05/18 10:58 72 30 75 02/05/18 10:00 61 30 105/57 (73) 91 18 10:00 31 Mechanical Ventilator 75 02/05/18 09:13 69 106/54 02/05/18 09:00 30 Mechanical Ventilator 75 02/05/18 09:00 60 30 113/58 (76) 94 02/05/18 08:51 67 30 75 02/05/18 08:00 Mechanical Ventilator Mechanical Ventilator 02/05/18 08:00 98.8 67 30 105/54 (71) 94 18 08:00 62 02/05/18 08:00 75 02/05/18 08:00 30 Mechanical Ventilator 75 02/05/18 07:23 72 30 94 Mechanical Ventilator 75 02/05/18 07:15 75 02/05/18 07:13 69 30 92 Mechanical Ventilator 75 02/05/18 07:06 66 30 75 02/05/18 07:00 64 30 105/50 (68) 91 18 07:00 30 Mechanical Ventilator 75 18 06:30 66 30 113/52 (72) 91 18 06:00 30 Mechanical Ventilator 75 02/05/18 06:00 71 30 123/56 (78) 91 18 05:47 30 75 18 05:30 71 30 75 18 05:30 69 29 105/64 (78) 92 02/05/18 05:00 73 27 135/54 (81) 91 02/05/18 05:00 27 Mechanical Ventilator 75 02/05/18 04:30 64 30 102/51 (68) 94 02/05/18 04:00 98.6 66 30 104/49 (67) 94 02/05/18 04:00 30 Mechanical Ventilator 75 02/05/18 04:00 Mechanical Ventilator 02/05/18 04:00 75 02/05/18 03:30 69 30 99/51 (67) 94 02/05/18 03:28 62 31 75 02/05/18 03:06 67 02/05/18 03:00 70 23 113/50 (71) 90 02/05/18 03:00 23 Mechanical Ventilator 75 02/05/18 02:30 70 25 122/61 (81) 90 02/05/18 02:00 68 27 111/52 (71) 91 02/05/18 02:00 27 Mechanical Ventilator 75 02/05/18 01:30 63 30 101/48 (65) 91 02/05/18 01:24 75 02/05/18 01:24 60 30 96 Mechanical Ventilator 75 02/05/18 01:13 66 30 96 Mechanical Ventilator 75 02/05/18 01:10 69 30 75 02/05/18 01:00 62 30 106/47 (66) 90 02/05/18 01:00 30 Mechanical Ventilator 75 02/05/18 00:30 63 30 105/64 (78) 91 02/05/18 00:00 Mechanical Ventilator 02/05/18 00:00 98.5 61 30 99/49 (66) 95 02/05/18 00:00 30 Mechanical Ventilator 75 02/04/18 23:30 62 30 99/43 (61) 95 02/04/18 23:01 61 30 75 02/04/18 23:00 63 30 90/47 (61) 94 02/04/18 23:00 30 Mechanical Ventilator 75 02/04/18 22:59 68 02/04/18 22:30 61 30 93/44 (60) 94 02/04/18 22:00 30 Mechanical Ventilator 75 02/04/18 22:00 62 30 100/47 (64) 92 Critical Care - Subjective ROS Limited/Unobtainable: Yes FI02: 75 Vent Support Breath Rate: 30 Vent Support Mode: AC Vent Tidal Volume: 600 Sputum Amount: Scant PEEP: 7.0 PIP: 51 Tube Feeding Amount: 50 I&O: Intake and Output 02/04/18 02/05/18 19:00 07:00 Intake Total 1151 ml 1051 ml Output Total 555 ml 700 ml Balance 596 ml 351 ml Free Water 100 ml IV Total 451 ml 451 ml Tube Feeding 600 ml 600 ml Output Urine Total 555 ml 700 ml ET-Tube: 7.5 ET Position: 23 Tyrel Gonzalez MD Feb 05, 2018 21:48
[2018-02-06] VITALS (40 sets, daily range): BP systolic 92–153; BP diastolic 49–132
[2018-02-06] MEDS: Albuterol/Ipratropium 3ml neb HHN SCH ×3 (01:13→12:43)
[2018-02-06] MEDS: Metoprolol Tartrate 50mg tab ORAL SCH ×2 (08:16→21:34)
[2018-02-06] MEDS: Heparin 5000 units/ml inj SUBQ SCH ×2 (08:20→21:34)
[2018-02-06] MEDS: Cefepime HCl 1 GM in D5W 55 ML IVPB SCH ×2 (09:18→22:44)
--- NOTE | 2018-02-06 11:44 | Diagnostic Imaging Report ---
Indication: Abnormal chest sounds Technique: One view of the chest Comparison: 02/01/2018 Findings: Again demonstrated is extensive bilateral diffuse interstitial and airspace consolidation. This appears stable on the right, equivocally slightly worse on the left. There is evidence of increasing pleural fluid on the right Stable satisfactory positions of endotracheal and nasogastric tubes. The heart is upper limits normal in size Impression: Slight worsening of pulmonary parenchymal disease on the left, otherwise essentially unchanged diffuse interstitial and airspace infiltrates. Slightly increased small right-sided pleural effusion Stable tube positions
--- NOTE | 2018-02-06 11:57 | GI Progress Note ---
Assessment/Plan Problems: (1) Constipation ICD Codes: K59.00 - Constipation, unspecified SNOMED: 29083027 (2) Gastroparesis ICD Codes: K31.84 - Gastroparesis SNOMED: 639811420 (3) Abnormal LFTs ICD Codes: R94.5 - Abnormal results of liver function studies SNOMED: 180499024 Status: stable Status Narrative Discussed with Dr. Salgado. Assessment/Plan hepatitis panel reviewed >> active Hep A infection anemia work up reviewed >> folate and iron deficiency NGT present recent KUB >> no acute findings Dysphagia ET tube on mech vent, possible tach. Will follow if PEG if necessary. NGTFs per RD to goal. low dose erythromycin if needed for GI motility OB stool r/o GI bleed uncollected monitor H&H, prn transfusions constipation - bowel regime >> lactulose TID >> had BM yesterday ppi folate fu labs The patient was seen and examined at bedside and all new and available data was reviewed in the patients chart. I agree with the above findings, impression and plan. (Patient seen earlier today. Signature stamp does not reflect patient encounter time.). - Peter Salgado MD Subjective Subjective limited Objective Last 24 Hour Vital Signs Date Time Temp Pulse Resp B/P (MAP) Pulse Ox O2 Delivery O2 Flow Rate FiO2 02/06/18 11:30 67 23 125/54 (77) 87 02/06/18 11:00 65 30 128/59 (82) 90 02/06/18 11:00 30 Mechanical Ventilator 02/06/18 10:54 73 30 70 02/06/18 10:30 63 31 115/55 (75) 94 02/06/18 10:00 68 20 151/61 (91) 87 02/06/18 10:00 30 Mechanical Ventilator 02/06/18 09:30 100 26 153/132 (139) 80 02/06/18 09:00 30 Mechanical Ventilator 02/06/18 09:00 60 30 119/56 (77) 91 02/06/18 08:42 61 30 70 02/06/18 08:40 90 02/06/18 08:30 75 29 138/60 (86) 90 02/06/18 08:17 30 Mechanical Ventilator 02/06/18 08:16 76 127/57 02/06/18 08:00 70 12/17/18 08:00 66 02/06/18 08:00 Mechanical Ventilator Mechanical Ventilator 18 08:00 98.0 76 30 127/57 (80) 95 17/18 08:00 30 Mechanical Ventilator 02/06/18 07:30 64 18 120/71 (87) 96 02/06/18 07:16 67 31 92 Mechanical Ventilator 70 02/06/18 07:06 65 30 95 Mechanical Ventilator 70 02/06/18 07:03 61 30 70 02/06/18 07:00 76 30 110/52 (71) 97 17/18 07:00 30 Mechanical Ventilator 70 02/06/18 06:30 62 30 108/50 (69) 96 02/06/18 06:00 64 30 132/50 (77) 97 02/06/18 06:00 30 Mechanical Ventilator 70 02/06/18 05:30 65 30 103/50 (67) 96 02/06/18 05:00 62 30 134/59 (84) 95 18 04:59 65 30 70 18 04:30 71 29 129/58 (81) 91 02/06/18 04:00 70 02/06/18 04:00 25 Mechanical Ventilator 70 18 04:00 Mechanical Ventilator Mechanical Ventilator 18 04:00 98.5 72 25 136/60 (85) 90 02/06/18 03:35 73 02/06/18 03:30 71 28 141/65 (90) 92 02/06/18 03:16 73 30 70 18 03:00 72 28 134/93 (107) 89 02/06/18 03:00 28 Mechanical Ventilator 70 02/06/18 02:30 71 21 148/60 (89) 95 02/06/18 02:00 70 22 129/58 (81) 91 02/06/18 02:00 22 Mechanical Ventilator 70 02/06/18 01:30 69 27 146/86 (106) 93 02/06/18 01:25 75 31 100 Mechanical Ventilator 75 02/06/18 01:13 75 02/06/18 01:13 71 30 99 Mechanical Ventilator 70 02/06/18 01:13 71 30 70 02/06/18 01:00 67 31 143/68 (93) 97 02/06/18 01:00 30 Mechanical Ventilator 70 02/06/18 00:30 61 30 114/55 (74) 98 18 00:04 62 02/06/18 00:00 98.7 61 30 114/54 (74) 99 02/06/18 00:00 30 Mechanical Ventilator 70 18 00:00 Mechanical Ventilator Mechanical Ventilator 02/06/18 00:00 70 18 23:30 61 30 83/53 (63) 99 18 23:28 60 30 70 02/05/18 23:00 30 Mechanical Ventilator 70 18 23:00 62 30 102/50 (67) 100 18 22:30 59 30 104/55 (71) 98 02/05/18 22:00 30 Mechanical Ventilator 70 02/05/18 22:00 60 30 126/63 (84) 95 18 21:30 59 30 109/57 (74) 97 18 21:16 84 30 75 02/05/18 21:03 76 129/64 02/05/18 21:00 21 Mechanical Ventilator 70 02/05/18 21:00 76 21 129/64 (85) 97 02/05/18 20:30 107 21 142/63 (89) 97 18 20:29 22 Mechanical Ventilator 70 02/05/18 20:02 77 02/05/18 20:00 Mechanical Ventilator Mechanical Ventilator 02/05/18 20:00 98.6 78 30 140/63 (88) 97 18 20:00 70 18 20:00 30 Mechanical Ventilator 70 02/05/18 19:43 71 31 100 Mechanical Ventilator 75 18 19:32 75 18 19:32 73 30 75 18 19:32 73 30 100 Mechanical Ventilator 75 18 19:30 72 30 121/54 (76) 97 18 19:00 30 Mechanical Ventilator 95 02/05/18 19:00 66 30 106/52 (70) 97 02/05/18 18:00 25 Mechanical Ventilator 97 18 18:00 77 27 127/60 (82) 97 18 17:00 72 22 120/57 (78) 95 18 17:00 21 Mechanical Ventilator 96 02/05/18 16:58 73 31 75 02/05/18 16:00 98.7 106 25 138/52 (80) 95 02/05/18 16:00 75 02/05/18 16:00 30 Mechanical Ventilator 02/05/18 16:00 68 02/05/18 16:00 Mechanical Ventilator Mechanical Ventilator 02/05/18 15:13 20 Mechanical Ventilator 94 02/05/18 15:06 68 30 75 02/05/18 15:00 66 30 128/60 (82) 97 02/05/18 15:00 30 Mechanical Ventilator 75 02/05/18 15:00 17 Mechanical Ventilator 75 02/05/18 14:00 30 Mechanical Ventilator 75 02/05/18 14:00 65 30 107/54 (71) 93 02/05/18 13:00 65 30 103/58 (73) 94 02/05/18 12:55 72 30 94 Mechanical Ventilator 75 02/05/18 12:46 75 02/05/18 12:45 71 30 94 Mechanical Ventilator 75 02/05/18 12:43 71 30 75 02/05/18 12:00 Mechanical Ventilator Mechanical Ventilator 02/05/18 12:00 75 02/05/18 12:00 98.7 70 30 134/64 (87) 92 02/05/18 12:00 Mechanical Ventilator 75 02/05/18 12:00 68 Intake and Output 02/05/18 02/06/18 19:00 07:00 Intake Total 1068 ml 1118 ml Output Total 435 ml 470 ml Balance 633 ml 648 ml Free Water 50 ml IV Total 418 ml 418 ml Tube Feeding 600 ml 600 ml Other 100 ml Output Urine Total 435 ml 470 ml Height (Feet): 5 Height (Inches): 9.00 Weight (Pounds): 190 General Appearance: no apparent distress Cardiovascular: normal rate Respiratory/Chest: normal breath sounds, no respiratory distress, other - intubated Abdominal Exam: normal bowel sounds, non tender, soft Extremities: non-tender Willa Woods [employer] Feb 06, 2018 11:57
--- NOTE | 2018-02-06 12:06 | General Progress Note ---
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 (2) UTI (urinary tract infection) ICD Codes: N39.0 - Urinary tract infection, site not specified SNOMED: 38317199, 841627083 Qualifiers: Qualified Codes: N39.0 - Urinary tract infection, site not specified (3) Severe sepsis ICD Codes: A41.9 - Sepsis, unspecified organism; R65.20 - Severe sepsis without septic shock SNOMED: 05869115 Status: unchanged Assessment/Plan cont Haldol the family should make decisions the pt lacks capacity provided ro/st Subjective Neurologic/Psychiatric: Reports: anxiety Allergies: Coded Allergies: No Known Allergies (Unverified , 01/24/18) Subjective the pt is agitated confused and disoriented agitated Objective Last 24 Hour Vital Signs Date Time Temp Pulse Resp B/P (MAP) Pulse Ox O2 Delivery O2 Flow Rate FiO2 02/06/18 11:30 67 23 125/54 (77) 87 02/06/18 11:00 65 30 128/59 (82) 90 02/06/18 11:00 30 Mechanical Ventilator 02/06/18 10:54 73 30 70 02/06/18 10:30 63 31 115/55 (75) 94 02/06/18 10:00 68 20 151/61 (91) 87 02/06/18 10:00 30 Mechanical Ventilator 02/06/18 09:30 100 26 153/132 (139) 80 02/06/18 09:00 30 Mechanical Ventilator 02/06/18 09:00 60 30 119/56 (77) 91 02/06/18 08:42 61 30 70 02/06/18 08:40 90 02/06/18 08:30 75 29 138/60 (86) 90 02/06/18 08:17 30 Mechanical Ventilator 02/06/18 08:16 76 127/57 02/06/18 08:00 70 02/06/18 08:00 66 02/06/18 08:00 Mechanical Ventilator Mechanical Ventilator 02/06/18 08:00 98.0 76 30 127/57 (80) 95 02/06/18 08:00 30 Mechanical Ventilator 02/06/18 07:30 64 18 120/71 (87) 96 02/06/18 07:16 67 31 92 Mechanical Ventilator 70 02/06/18 07:06 65 30 95 Mechanical Ventilator 70 12/17/18 07:03 61 30 70 02/06/18 07:00 76 30 110/52 (71) 97 18 07:00 30 Mechanical Ventilator 70 18 06:30 62 30 108/50 (69) 96 18 06:00 64 30 132/50 (77) 97 18 06:00 30 Mechanical Ventilator 70 18 05:30 65 30 103/50 (67) 96 18 05:00 62 30 134/59 (84) 95 18 04:59 65 30 70 18 04:30 71 29 129/58 (81) 91 02/06/18 04:00 70 02/06/18 04:00 25 Mechanical Ventilator 70 02/06/18 04:00 Mechanical Ventilator Mechanical Ventilator 02/06/18 04:00 98.5 72 25 136/60 (85) 90 02/06/18 03:35 73 02/06/18 03:30 71 28 141/65 (90) 92 02/06/18 03:16 73 30 70 02/06/18 03:00 72 28 134/93 (107) 89 02/06/18 03:00 28 Mechanical Ventilator 70 02/06/18 02:30 71 21 148/60 (89) 95 02/06/18 02:00 70 22 129/58 (81) 91 02/06/18 02:00 22 Mechanical Ventilator 70 02/06/18 01:30 69 27 146/86 (106) 93 02/06/18 01:25 75 31 100 Mechanical Ventilator 75 02/06/18 01:13 75 02/06/18 01:13 71 30 99 Mechanical Ventilator 70 18 01:13 71 30 70 18 01:00 67 31 143/68 (93) 97 18 01:00 30 Mechanical Ventilator 70 18 00:30 61 30 114/55 (74) 98 18 00:04 62 18 00:00 98.7 61 30 114/54 (74) 99 18 00:00 30 Mechanical Ventilator 70 18 00:00 Mechanical Ventilator Mechanical Ventilator 02/06/18 00:00 70 02/05/18 23:30 61 30 83/53 (63) 99 12/16/18 23:28 60 30 70 02/05/18 23:00 30 Mechanical Ventilator 70 18 23:00 62 30 102/50 (67) 100 02/05/18 22:30 59 30 104/55 (71) 98 /16/18 22:00 30 Mechanical Ventilator 70 18 22:00 60 30 126/63 (84) 95 02/05/18 21:30 59 30 109/57 (74) 97 02/05/18 21:16 84 30 75 02/05/18 21:03 76 129/64 02/05/18 21:00 21 Mechanical Ventilator 70 18 21:00 76 21 129/64 (85) 97 18 20:30 107 21 142/63 (89) 97 02/05/18 20:29 22 Mechanical Ventilator 70 18 20:02 77 18 20:00 Mechanical Ventilator Mechanical Ventilator 02/05/18 20:00 98.6 78 30 140/63 (88) 97 18 20:00 70 02/05/18 20:00 30 Mechanical Ventilator 70 18 19:43 71 31 100 Mechanical Ventilator 75 18 19:32 75 02/05/18 19:32 73 30 75 02/05/18 19:32 73 30 100 Mechanical Ventilator 75 18 19:30 72 30 121/54 (76) 97 02/05/18 19:00 30 Mechanical Ventilator 95 18 19:00 66 30 106/52 (70) 97 02/05/18 18:00 25 Mechanical Ventilator 97 18 18:00 77 27 127/60 (82) 97 02/05/18 17:00 72 22 120/57 (78) 95 02/05/18 17:00 21 Mechanical Ventilator 96 02/05/18 16:58 73 31 75 02/05/18 16:00 98.7 106 25 138/52 (80) 95 02/05/18 16:00 75 16/18 16:00 30 Mechanical Ventilator 02/05/18 16:00 68 16/18 16:00 Mechanical Ventilator Mechanical Ventilator 18 15:13 20 Mechanical Ventilator 94 02/05/18 15:06 68 30 75 12/16/18 15:00 66 30 128/60 (82) 97 02/05/18 15:00 30 Mechanical Ventilator 75 02/05/18 15:00 17 Mechanical Ventilator 75 02/05/18 14:00 30 Mechanical Ventilator 75 02/05/18 14:00 65 30 107/54 (71) 93 02/05/18 13:00 65 30 103/58 (73) 94 02/05/18 12:55 72 30 94 Mechanical Ventilator 75 02/05/18 12:46 75 02/05/18 12:45 71 30 94 Mechanical Ventilator 75 02/05/18 12:43 71 30 75 Intake and Output 02/05/18 02/06/18 19:00 07:00 Intake Total 1068 ml 1118 ml Output Total 435 ml 470 ml Balance 633 ml 648 ml Free Water 50 ml IV Total 418 ml 418 ml Tube Feeding 600 ml 600 ml Other 100 ml Output Urine Total 435 ml 470 ml Height (Feet): 5 Height (Inches): 9.00 Weight (Pounds): 190 General Appearance: lethargic, confused, agitated Collin Smith MD Feb 06, 2018 12:06
--- NOTE | 2018-02-06 12:31 | Infectious Diseases Prog Note ---
Assessment/Plan Assessment/Plan A: 1. Sepsis 2. Hypoxemic respiratory failure 3. Acute renal failure. 4. Lactic acidosis. 5. Increase in bilirubin, s/p cholecystectomy 6. Pulmonary fibrosis 7. Pulmonary hypertension 8.Hepatitis A P; Continue Cefepime Subjective ROS Limited/Unobtainable: Yes Neurologic: Reports: other - sedated on restraint Allergies: Coded Allergies: No Known Allergies (Unverified , 01/24/18) Objective Vital Signs Last 24 Hour Vital Signs Date Time Temp Pulse Resp B/P (MAP) Pulse Ox O2 Delivery O2 Flow Rate FiO2 02/06/18 11:30 67 23 125/54 (77) 87 02/06/18 11:00 65 30 128/59 (82) 90 02/06/18 11:00 30 Mechanical Ventilator 02/06/18 10:54 73 30 70 02/06/18 10:30 63 31 115/55 (75) 94 02/06/18 10:00 68 20 151/61 (91) 87 02/06/18 10:00 30 Mechanical Ventilator 02/06/18 09:30 100 26 153/132 (139) 80 02/06/18 09:00 30 Mechanical Ventilator 02/06/18 09:00 60 30 119/56 (77) 91 02/06/18 08:42 61 30 70 02/06/18 08:40 90 02/06/18 08:30 75 29 138/60 (86) 90 02/06/18 08:17 30 Mechanical Ventilator 02/06/18 08:16 76 127/57 02/06/18 08:00 70 02/06/18 08:00 66 02/06/18 08:00 Mechanical Ventilator Mechanical Ventilator 02/06/18 08:00 98.0 76 30 127/57 (80) 95 02/06/18 08:00 30 Mechanical Ventilator 02/06/18 07:30 64 18 120/71 (87) 96 02/06/18 07:16 67 31 92 Mechanical Ventilator 70 02/06/18 07:06 65 30 95 Mechanical Ventilator 70 02/06/18 07:03 61 30 70 02/06/18 07:00 76 30 110/52 (71) 97 02/06/18 07:00 30 Mechanical Ventilator 70 02/06/18 06:30 62 30 108/50 (69) 96 02/06/18 06:00 64 30 132/50 (77) 97 12/17/18 06:00 30 Mechanical Ventilator 70 18 05:30 65 30 103/50 (67) 96 18 05:00 62 30 134/59 (84) 95 18 04:59 65 30 70 18 04:30 71 29 129/58 (81) 91 18 04:00 70 02/06/18 04:00 25 Mechanical Ventilator 70 02/06/18 04:00 Mechanical Ventilator Mechanical Ventilator 02/06/18 04:00 98.5 72 25 136/60 (85) 90 02/06/18 03:35 73 02/06/18 03:30 71 28 141/65 (90) 92 02/06/18 03:16 73 30 70 02/06/18 03:00 72 28 134/93 (107) 89 02/06/18 03:00 28 Mechanical Ventilator 70 02/06/18 02:30 71 21 148/60 (89) 95 02/06/18 02:00 70 22 129/58 (81) 91 02/06/18 02:00 22 Mechanical Ventilator 70 02/06/18 01:30 69 27 146/86 (106) 93 02/06/18 01:25 75 31 100 Mechanical Ventilator 75 02/06/18 01:13 75 02/06/18 01:13 71 30 99 Mechanical Ventilator 70 02/06/18 01:13 71 30 70 02/06/18 01:00 67 31 143/68 (93) 97 02/06/18 01:00 30 Mechanical Ventilator 70 02/06/18 00:30 61 30 114/55 (74) 98 02/06/18 00:04 62 02/06/18 00:00 98.7 61 30 114/54 (74) 99 18 00:00 30 Mechanical Ventilator 70 02/06/18 00:00 Mechanical Ventilator Mechanical Ventilator 02/06/18 00:00 70 02/05/18 23:30 61 30 83/53 (63) 99 18 23:28 60 30 70 18 23:00 30 Mechanical Ventilator 70 18 23:00 62 30 102/50 (67) 100 18 22:30 59 30 104/55 (71) 98 18 22:00 30 Mechanical Ventilator 70 18 22:00 60 30 126/63 (84) 95 02/05/18 21:30 59 30 109/57 (74) 97 02/05/18 21:16 84 30 75 02/05/18 21:03 76 129/64 02/05/18 21:00 21 Mechanical Ventilator 70 02/05/18 21:00 76 21 129/64 (85) 97 02/05/18 20:30 107 21 142/63 (89) 97 18 20:29 22 Mechanical Ventilator 70 18 20:02 77 02/05/18 20:00 Mechanical Ventilator Mechanical Ventilator 18 20:00 98.6 78 30 140/63 (88) 97 02/05/18 20:00 70 18 20:00 30 Mechanical Ventilator 70 18 19:43 71 31 100 Mechanical Ventilator 75 18 19:32 75 02/05/18 19:32 73 30 75 18 19:32 73 30 100 Mechanical Ventilator 75 02/05/18 19:30 72 30 121/54 (76) 97 02/05/18 19:00 30 Mechanical Ventilator 95 18 19:00 66 30 106/52 (70) 97 02/05/18 18:00 25 Mechanical Ventilator 97 18 18:00 77 27 127/60 (82) 97 02/05/18 17:00 72 22 120/57 (78) 95 02/05/18 17:00 21 Mechanical Ventilator 96 18 16:58 73 31 75 02/05/18 16:00 98.7 106 25 138/52 (80) 95 02/05/18 16:00 75 02/05/18 16:00 30 Mechanical Ventilator 02/05/18 16:00 68 02/05/18 16:00 Mechanical Ventilator Mechanical Ventilator 18 15:13 20 Mechanical Ventilator 94 02/05/18 15:06 68 30 75 02/05/18 15:00 66 30 128/60 (82) 97 02/05/18 15:00 30 Mechanical Ventilator 75 02/05/18 15:00 17 Mechanical Ventilator 75 02/05/18 14:00 30 Mechanical Ventilator 75 02/05/18 14:00 65 30 107/54 (71) 93 12/16/18 13:00 65 30 103/58 (73) 94 02/05/18 12:55 72 30 94 Mechanical Ventilator 75 02/05/18 12:46 75 02/05/18 12:45 71 30 94 Mechanical Ventilator 75 02/05/18 12:43 71 30 75 Height (Feet): 5 Height (Inches): 9.00 Weight (Pounds): 190 HEENT: other - orallu intubated Respiratory/Chest: lungs clear, other - on ventilator Cardiovascular: normal rate Abdomen: soft, non tender, other - NG tube feeding Extremities: other - edema of hnds Skin: ulcers, other - stge 3 s Neurologic/Psychiatric: other - opens eyes Current Medications Medications (Trade) Dose Ordered Sig/Chaka Route PRN Reason Start Time Stop Time Status Last Admin Dose Admin Acetaminophen (Tylenol) 650 mg PRN PRN RECTAL Prn Headache/Temp > 101 01/26/18 22:15 02/23/18 22:14 01/28/18 20:35 Albuterol/ Ipratropium (Albuterol/ Ipratropium) 3 ml Q4H PRN HHN Shortness of Breath 02/01/18 13:30 02/06/18 13:29 Albuterol/ Ipratropium (Albuterol/ Ipratropium) 3 ml Q6HRT HHN 02/01/18 19:00 02/06/18 18:59 02/06/18 07:05 Cefepime HCl 1 gm/ Dextrose 55 ml @ 110 mls/hr Q12HR@1000,2200 IVPB 01/30/18 10:00 02/10/18 09:59 02/06/18 09:18 Dextrose/Sodium Chloride 1,000 ml @ 25 mls/hr Q24H IV 02/02/18 14:00 02/28/18 13:59 02/05/18 14:14 Diphenhydramine HCl (Benadryl) 25 mg Q6H PRN IVP Itching 01/26/18 22:15 02/25/18 22:14 Famotidine (Pepcid I.v.) 20 mg Q12HR IVP 01/26/18 10:00 02/24/18 09:59 02/06/18 09:24 Fentanyl Citrate 1000 mcg/Sodium Chloride 100 ml @ 0 mls/hr Q24H IV 02/02/18 15:13 02/09/18 15:12 02/06/18 08:17 Haloperidol Lactate (Haldol) 5 mg Q6H PRN IM Agitation 01/27/18 13:00 02/26/18 12:59 02/06/18 11:47 Heparin Sodium (Porcine) (Heparin 5000 units/ml) 5,000 units EVERY 12 HOURS SUBQ 01/27/18 21:00 02/26/18 20:59 02/06/18 08:20 Lactulose (Cephulac) 20 gm DAILYPRN PRN NG Constipation 02/03/18 13:15 03/04/18 12:59 Magnesium Hydroxide (Mom) 30 ml DAILYPRN PRN ORAL Constipation 01/30/18 14:15 03/01/18 14:14 02/02/18 07:00 Metoprolol Tartrate (Lopressor) 50 mg Q12HR ORAL 01/31/18 21:00 02/25/18 20:59 02/06/18 08:16 Midazolam HCl (Versed 2mg/2ml vial) 2 mg EVERY 4 HOURS PRN IVP For Anxiety 01/26/18 10:00 02/25/18 09:59 02/02/18 02:16 Olanzapine (ZyPREXA) 2.5 mg BEDTIME PRN ORAL agitation 01/26/18 21:00 02/25/18 20:59 Ondansetron HCl (Zofran) 4 mg Q6H PRN IVP Nausea & Vomiting 01/26/18 22:15 02/25/18 22:14 Polyethylene Glycol (Miralax) 17 gm BEDTIME NG 01/31/18 21:00 03/02/18 20:59 02/05/18 21:02 Ha Tello MD Feb 06, 2018 12:31
[2018-02-06] MEDS: D5 1/2NS 1,000 ML IV SCH (13:24)
--- NOTE | 2018-02-06 13:38 | Nephrology Progress Note ---
Assessment/Plan Problem List: (1) OLEG (acute kidney injury) Assessment: resolved (2) Abnormal LFTs (3) Lactic acid acidosis (4) UTI (urinary tract infection) (5) Respiratory disorder with ventilator dependence (6) Pulmonary fibrosis Assessment Acute renal failure, resolved high K resolved Pneumonia / Sepsis / Hypoxia / UTI HypoAlbuminemia / Proteinuria Acute respiratory failure Pulmonary fibrosis Lactic acidosis Plan Pulm support / on vent IV antibiotics Watch electrolytes Gastric support Per orders Subjective ROS Limited/Unobtainable: Yes Objective Objective Last 24 Hour Vital Signs Date Time Temp Pulse Resp B/P (MAP) Pulse Ox O2 Delivery O2 Flow Rate FiO2 02/06/18 13:07 63 30 70 02/06/18 13:00 64 31 93 Mechanical Ventilator 70 02/06/18 13:00 69 30 92/49 (63) 92 02/06/18 12:47 30 Mechanical Ventilator 02/06/18 12:43 66 30 95 Mechanical Ventilator 70 02/06/18 12:30 68 28 106/54 (71) 87 02/06/18 12:00 70 02/06/18 12:00 98.7 105 30 117/62 (80) 92 02/06/18 12:00 Mechanical Ventilator Mechanical Ventilator 02/06/18 12:00 67 02/06/18 11:30 67 23 125/54 (77) 87 02/06/18 11:00 65 30 128/59 (82) 90 02/06/18 11:00 30 Mechanical Ventilator 02/06/18 10:54 73 30 70 02/06/18 10:30 63 31 115/55 (75) 94 02/06/18 10:00 68 20 151/61 (91) 87 02/06/18 10:00 30 Mechanical Ventilator 02/06/18 09:30 100 26 153/132 (139) 80 02/06/18 09:00 30 Mechanical Ventilator 02/06/18 09:00 60 30 119/56 (77) 91 02/06/18 08:42 61 30 70 02/06/18 08:40 90 02/06/18 08:30 75 29 138/60 (86) 90 02/06/18 08:17 30 Mechanical Ventilator 02/06/18 08:16 76 127/57 02/06/18 08:00 70 02/06/18 08:00 66 02/06/18 08:00 Mechanical Ventilator Mechanical Ventilator 12/17/18 08:00 98.0 76 30 127/57 (80) 95 17/18 08:00 30 Mechanical Ventilator 02/06/18 07:30 64 18 120/71 (87) 96 02/06/18 07:16 67 31 92 Mechanical Ventilator 70 02/06/18 07:06 65 30 95 Mechanical Ventilator 70 18 07:03 61 30 70 02/06/18 07:00 76 30 110/52 (71) 97 02/06/18 07:00 30 Mechanical Ventilator 70 18 06:30 62 30 108/50 (69) 96 18 06:00 64 30 132/50 (77) 97 02/06/18 06:00 30 Mechanical Ventilator 70 18 05:30 65 30 103/50 (67) 96 18 05:00 62 30 134/59 (84) 95 18 04:59 65 30 70 18 04:30 71 29 129/58 (81) 91 18 04:00 70 18 04:00 25 Mechanical Ventilator 70 18 04:00 Mechanical Ventilator Mechanical Ventilator 02/06/18 04:00 98.5 72 25 136/60 (85) 90 18 03:35 73 18 03:30 71 28 141/65 (90) 92 18 03:16 73 30 70 18 03:00 72 28 134/93 (107) 89 02/06/18 03:00 28 Mechanical Ventilator 70 18 02:30 71 21 148/60 (89) 95 18 02:00 70 22 129/58 (81) 91 18 02:00 22 Mechanical Ventilator 70 18 01:30 69 27 146/86 (106) 93 18 01:25 75 31 100 Mechanical Ventilator 75 02/06/18 01:13 75 02/06/18 01:13 71 30 99 Mechanical Ventilator 70 02/06/18 01:13 71 30 70 02/06/18 01:00 67 31 143/68 (93) 97 02/06/18 01:00 30 Mechanical Ventilator 70 02/06/18 00:30 61 30 114/55 (74) 98 12/17/18 00:04 62 02/06/18 00:00 98.7 61 30 114/54 (74) 99 18 00:00 30 Mechanical Ventilator 70 18 00:00 Mechanical Ventilator Mechanical Ventilator 18 00:00 70 02/05/18 23:30 61 30 83/53 (63) 99 18 23:28 60 30 70 18 23:00 30 Mechanical Ventilator 70 18 23:00 62 30 102/50 (67) 100 18 22:30 59 30 104/55 (71) 98 18 22:00 30 Mechanical Ventilator 70 18 22:00 60 30 126/63 (84) 95 18 21:30 59 30 109/57 (74) 97 02/05/18 21:16 84 30 75 18 21:03 76 129/64 18 21:00 21 Mechanical Ventilator 70 02/05/18 21:00 76 21 129/64 (85) 97 18 20:30 107 21 142/63 (89) 97 18 20:29 22 Mechanical Ventilator 70 02/05/18 20:02 77 02/05/18 20:00 Mechanical Ventilator Mechanical Ventilator 02/05/18 20:00 98.6 78 30 140/63 (88) 97 02/05/18 20:00 70 18 20:00 30 Mechanical Ventilator 70 18 19:43 71 31 100 Mechanical Ventilator 75 02/05/18 19:32 75 18 19:32 73 30 75 18 19:32 73 30 100 Mechanical Ventilator 75 18 19:30 72 30 121/54 (76) 97 02/05/18 19:00 30 Mechanical Ventilator 95 18 19:00 66 30 106/52 (70) 97 02/05/18 18:00 25 Mechanical Ventilator 97 18 18:00 77 27 127/60 (82) 97 18 17:00 72 22 120/57 (78) 95 02/05/18 17:00 21 Mechanical Ventilator 96 18 16:58 73 31 75 18 16:00 98.7 106 25 138/52 (80) 95 02/05/18 16:00 75 02/05/18 16:00 30 Mechanical Ventilator 02/05/18 16:00 68 02/05/18 16:00 Mechanical Ventilator Mechanical Ventilator 02/05/18 15:13 20 Mechanical Ventilator 94 02/05/18 15:06 68 30 75 02/05/18 15:00 66 30 128/60 (82) 97 02/05/18 15:00 30 Mechanical Ventilator 75 02/05/18 15:00 17 Mechanical Ventilator 75 02/05/18 14:00 30 Mechanical Ventilator 75 02/05/18 14:00 65 30 107/54 (71) 93 Intake and Output 02/05/18 02/06/18 19:00 07:00 Intake Total 1068 ml 1118 ml Output Total 435 ml 470 ml Balance 633 ml 648 ml Free Water 50 ml IV Total 418 ml 418 ml Tube Feeding 600 ml 600 ml Other 100 ml Output Urine Total 435 ml 470 ml Height (Feet): 5 Height (Inches): 9.00 Weight (Pounds): 190 EENT: other - vented Cardiovascular: normal rate Respiratory/Chest: decreased breath sounds Abdomen: soft Objective no change Juan C Mclaughlin MD Feb 06, 2018 13:38
--- NOTE | 2018-02-06 13:50 | Cardiac Electrophysiology PN ---
Assessment/Plan Assessment/Plan 1. Troponin Leak. The levels are flat. No CP Due to the respiratory failure and azotemia. Echo normal EF 2. Respiratory failure, due to PNA and CHF. The patient is on the ventilator. Antibiotic per ID Failed weaning. Likely needs Tracheostomy 3. Hypokalemia, potassium was replaced. 4. Azotemia and hypernatremia. On iv fluid per Dr Mclaughlin 5. Elevated bilirubin of 2.3. Down to 1.1 DW RN Subjective Subjective In ICU on the Vent and Fentanyl drip 80 mcg. In SR with 70% Fio2. Failed weaning. Objective Last 24 Hour Vital Signs Date Time Temp Pulse Resp B/P (MAP) Pulse Ox O2 Delivery O2 Flow Rate FiO2 02/06/18 13:07 63 30 70 02/06/18 13:00 30 Mechanical Ventilator 02/06/18 13:00 64 31 93 Mechanical Ventilator 70 02/06/18 13:00 69 30 92/49 (63) 92 02/06/18 12:47 30 Mechanical Ventilator 02/06/18 12:43 66 30 95 Mechanical Ventilator 70 02/06/18 12:30 68 28 106/54 (71) 87 02/06/18 12:00 70 02/06/18 12:00 98.7 105 30 117/62 (80) 92 02/06/18 12:00 Mechanical Ventilator Mechanical Ventilator 02/06/18 12:00 67 02/06/18 11:30 67 23 125/54 (77) 87 02/06/18 11:00 65 30 128/59 (82) 90 02/06/18 11:00 30 Mechanical Ventilator 02/06/18 10:54 73 30 70 02/06/18 10:30 63 31 115/55 (75) 94 02/06/18 10:00 68 20 151/61 (91) 87 02/06/18 10:00 30 Mechanical Ventilator 02/06/18 09:30 100 26 153/132 (139) 80 02/06/18 09:00 30 Mechanical Ventilator 02/06/18 09:00 60 30 119/56 (77) 91 02/06/18 08:42 61 30 70 02/06/18 08:40 90 02/06/18 08:30 75 29 138/60 (86) 90 02/06/18 08:17 30 Mechanical Ventilator 02/06/18 08:16 76 127/57 02/06/18 08:00 70 17/18 08:00 66 02/06/18 08:00 Mechanical Ventilator Mechanical Ventilator 18 08:00 98.0 76 30 127/57 (80) 95 02/06/18 08:00 30 Mechanical Ventilator 02/06/18 07:30 64 18 120/71 (87) 96 02/06/18 07:16 67 31 92 Mechanical Ventilator 70 02/06/18 07:06 65 30 95 Mechanical Ventilator 70 02/06/18 07:03 61 30 70 02/06/18 07:00 76 30 110/52 (71) 97 02/06/18 07:00 30 Mechanical Ventilator 70 18 06:30 62 30 108/50 (69) 96 02/06/18 06:00 64 30 132/50 (77) 97 02/06/18 06:00 30 Mechanical Ventilator 70 02/06/18 05:30 65 30 103/50 (67) 96 02/06/18 05:00 62 30 134/59 (84) 95 18 04:59 65 30 70 02/06/18 04:30 71 29 129/58 (81) 91 02/06/18 04:00 70 18 04:00 25 Mechanical Ventilator 70 18 04:00 Mechanical Ventilator Mechanical Ventilator 18 04:00 98.5 72 25 136/60 (85) 90 18 03:35 73 02/06/18 03:30 71 28 141/65 (90) 92 18 03:16 73 30 70 18 03:00 72 28 134/93 (107) 89 17/18 03:00 28 Mechanical Ventilator 70 18 02:30 71 21 148/60 (89) 95 02/06/18 02:00 70 22 129/58 (81) 91 02/06/18 02:00 22 Mechanical Ventilator 70 02/06/18 01:30 69 27 146/86 (106) 93 17/18 01:25 75 31 100 Mechanical Ventilator 75 02/06/18 01:13 75 17/18 01:13 71 30 99 Mechanical Ventilator 70 02/06/18 01:13 71 30 70 17/18 01:00 67 31 143/68 (93) 97 12/17/18 01:00 30 Mechanical Ventilator 70 02/06/18 00:30 61 30 114/55 (74) 98 18 00:04 62 02/06/18 00:00 98.7 61 30 114/54 (74) 99 18 00:00 30 Mechanical Ventilator 70 02/06/18 00:00 Mechanical Ventilator Mechanical Ventilator 02/06/18 00:00 70 02/05/18 23:30 61 30 83/53 (63) 99 02/05/18 23:28 60 30 70 18 23:00 30 Mechanical Ventilator 70 02/05/18 23:00 62 30 102/50 (67) 100 02/05/18 22:30 59 30 104/55 (71) 98 02/05/18 22:00 30 Mechanical Ventilator 70 02/05/18 22:00 60 30 126/63 (84) 95 18 21:30 59 30 109/57 (74) 97 02/05/18 21:16 84 30 75 02/05/18 21:03 76 129/64 02/05/18 21:00 21 Mechanical Ventilator 70 02/05/18 21:00 76 21 129/64 (85) 97 02/05/18 20:30 107 21 142/63 (89) 97 18 20:29 22 Mechanical Ventilator 70 02/05/18 20:02 77 02/05/18 20:00 Mechanical Ventilator Mechanical Ventilator 02/05/18 20:00 98.6 78 30 140/63 (88) 97 02/05/18 20:00 70 02/05/18 20:00 30 Mechanical Ventilator 70 18 19:43 71 31 100 Mechanical Ventilator 75 18 19:32 75 18 19:32 73 30 75 18 19:32 73 30 100 Mechanical Ventilator 75 18 19:30 72 30 121/54 (76) 97 02/05/18 19:00 30 Mechanical Ventilator 95 18 19:00 66 30 106/52 (70) 97 18 18:00 25 Mechanical Ventilator 97 18 18:00 77 27 127/60 (82) 97 18 17:00 72 22 120/57 (78) 95 02/05/18 17:00 21 Mechanical Ventilator 96 02/05/18 16:58 73 31 75 02/05/18 16:00 98.7 106 25 138/52 (80) 95 02/05/18 16:00 75 02/05/18 16:00 30 Mechanical Ventilator 02/05/18 16:00 68 02/05/18 16:00 Mechanical Ventilator Mechanical Ventilator 02/05/18 15:13 20 Mechanical Ventilator 94 02/05/18 15:06 68 30 75 02/05/18 15:00 66 30 128/60 (82) 97 02/05/18 15:00 30 Mechanical Ventilator 75 02/05/18 15:00 17 Mechanical Ventilator 75 02/05/18 14:00 30 Mechanical Ventilator 75 02/05/18 14:00 65 30 107/54 (71) 93 Intake and Output 18 18 18:59 06:59 Intake Total 1068 ml 1118 ml Output Total 475 ml 450 ml Balance 593 ml 668 ml Free Water 50 ml IV Total 418 ml 418 ml Tube Feeding 600 ml 600 ml Other 100 ml Output Urine Total 475 ml 450 ml Objective HEAD AND NECK: Orally intubated.NG tube is in LUNGS: Coarse rhonchi CARDIOVASCULAR: Regular S1 and S2 with no murmur. ABDOMEN: Soft. EXTREMITIES: No pitting edema, Josep Brar MD Feb 06, 2018 13:50
--- NOTE | 2018-02-06 15:35 | General Progress Note ---
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 (2) Renal insufficiency ICD Codes: N28.9 - Disorder of kidney and ureter, unspecified; R65.20 - Severe sepsis without septic shock SNOMED: 534010657, 839864315 (3) UTI (urinary tract infection) ICD Codes: N39.0 - Urinary tract infection, site not specified SNOMED: 03938291, 706497224 Qualifiers: Qualified Codes: N39.0 - Urinary tract infection, site not specified (4) Pneumonia ICD Codes: J18.9 - Pneumonia, unspecified organism SNOMED: 146777159 Qualifiers: Qualified Codes: J18.1 - Lobar pneumonia, unspecified organism (5) Severe sepsis ICD Codes: A41.9 - Sepsis, unspecified organism; R65.20 - Severe sepsis without septic shock SNOMED: 76663940 (6) Hypoxia ICD Codes: R09.02 - Hypoxemia; R65.20 - Severe sepsis without septic shock SNOMED: 742890460, 152289727 (7) Pulmonary fibrosis ICD Codes: J84.10 - Pulmonary fibrosis, unspecified SNOMED: 86381218 (8) Lactic acid acidosis ICD Codes: E87.2 - Acidosis SNOMED: 49277152 (9) OLEG (acute kidney injury) ICD Codes: N17.9 - Acute kidney failure, unspecified SNOMED: 42487040 (10) Abnormal LFTs ICD Codes: R94.5 - Abnormal results of liver function studies SNOMED: 786538809 Status: unchanged Assessment/Plan severe pulmonary firbrosis resp failure pna sepsis uti LFT is improving afebrile rhonci intubated no change poor prognosis Subjective ROS Limited/Unobtainable: Yes Allergies: Coded Allergies: No Known Allergies (Unverified , 01/24/18) Objective Last 24 Hour Vital Signs Date Time Temp Pulse Resp B/P (MAP) Pulse Ox O2 Delivery O2 Flow Rate FiO2 02/06/18 15:00 69 30 123/54 (77) 94 02/06/18 14:56 69 30 70 02/06/18 14:00 70 29 113/54 (73) 89 02/06/18 14:00 30 Mechanical Ventilator 02/06/18 13:30 76 30 113/56 (75) 94 02/06/18 13:07 63 30 70 12/17/18 13:00 30 Mechanical Ventilator 18 13:00 64 31 93 Mechanical Ventilator 70 18 13:00 69 30 92/49 (63) 92 18 12:47 30 Mechanical Ventilator 18 12:43 66 30 95 Mechanical Ventilator 70 18 12:30 68 28 106/54 (71) 87 18 12:00 70 18 12:00 98.7 105 30 117/62 (80) 92 18 12:00 Mechanical Ventilator Mechanical Ventilator 02/06/18 12:00 67 02/06/18 11:30 67 23 125/54 (77) 87 18 11:00 65 30 128/59 (82) 90 18 11:00 30 Mechanical Ventilator 02/06/18 10:54 73 30 70 18 10:30 63 31 115/55 (75) 94 18 10:00 68 20 151/61 (91) 87 02/06/18 10:00 30 Mechanical Ventilator 02/06/18 09:30 100 26 153/132 (139) 80 18 09:00 30 Mechanical Ventilator 18 09:00 60 30 119/56 (77) 91 18 08:42 61 30 70 18 08:40 90 18 08:30 75 29 138/60 (86) 90 18 08:17 30 Mechanical Ventilator 02/06/18 08:16 76 127/57 18 08:00 70 18 08:00 66 02/06/18 08:00 Mechanical Ventilator Mechanical Ventilator 02/06/18 08:00 98.0 76 30 127/57 (80) 95 18 08:00 30 Mechanical Ventilator 18 07:30 64 18 120/71 (87) 96 18 07:16 67 31 92 Mechanical Ventilator 70 18 07:06 65 30 95 Mechanical Ventilator 70 18 07:03 61 30 70 18 07:00 76 30 110/52 (71) 97 02/06/18 07:00 30 Mechanical Ventilator 70 18 06:30 62 30 108/50 (69) 96 18 06:00 64 30 132/50 (77) 97 18 06:00 30 Mechanical Ventilator 70 02/06/18 05:30 65 30 103/50 (67) 96 18 05:00 62 30 134/59 (84) 95 18 04:59 65 30 70 18 04:30 71 29 129/58 (81) 91 02/06/18 04:00 70 02/06/18 04:00 25 Mechanical Ventilator 70 02/06/18 04:00 Mechanical Ventilator Mechanical Ventilator 02/06/18 04:00 98.5 72 25 136/60 (85) 90 02/06/18 03:35 73 02/06/18 03:30 71 28 141/65 (90) 92 02/06/18 03:16 73 30 70 02/06/18 03:00 72 28 134/93 (107) 89 02/06/18 03:00 28 Mechanical Ventilator 70 02/06/18 02:30 71 21 148/60 (89) 95 02/06/18 02:00 70 22 129/58 (81) 91 02/06/18 02:00 22 Mechanical Ventilator 70 02/06/18 01:30 69 27 146/86 (106) 93 02/06/18 01:25 75 31 100 Mechanical Ventilator 75 02/06/18 01:13 75 02/06/18 01:13 71 30 99 Mechanical Ventilator 70 02/06/18 01:13 71 30 70 02/06/18 01:00 67 31 143/68 (93) 97 02/06/18 01:00 30 Mechanical Ventilator 70 02/06/18 00:30 61 30 114/55 (74) 98 18 00:04 62 02/06/18 00:00 98.7 61 30 114/54 (74) 99 18 00:00 30 Mechanical Ventilator 70 02/06/18 00:00 Mechanical Ventilator Mechanical Ventilator 02/06/18 00:00 70 18 23:30 61 30 83/53 (63) 99 18 23:28 60 30 70 18 23:00 30 Mechanical Ventilator 70 02/05/18 23:00 62 30 102/50 (67) 100 02/05/18 22:30 59 30 104/55 (71) 98 12/16/18 22:00 30 Mechanical Ventilator 70 18 22:00 60 30 126/63 (84) 95 18 21:30 59 30 109/57 (74) 97 18 21:16 84 30 75 18 21:03 76 129/64 18 21:00 21 Mechanical Ventilator 70 18 21:00 76 21 129/64 (85) 97 18 20:30 107 21 142/63 (89) 97 18 20:29 22 Mechanical Ventilator 70 02/05/18 20:02 77 02/05/18 20:00 Mechanical Ventilator Mechanical Ventilator 02/05/18 20:00 98.6 78 30 140/63 (88) 97 18 20:00 70 18 20:00 30 Mechanical Ventilator 70 02/05/18 19:43 71 31 100 Mechanical Ventilator 75 18 19:32 75 02/05/18 19:32 73 30 75 02/05/18 19:32 73 30 100 Mechanical Ventilator 75 02/05/18 19:30 72 30 121/54 (76) 97 18 19:00 30 Mechanical Ventilator 95 02/05/18 19:00 66 30 106/52 (70) 97 18 18:00 25 Mechanical Ventilator 97 02/05/18 18:00 77 27 127/60 (82) 97 02/05/18 17:00 72 22 120/57 (78) 95 18 17:00 21 Mechanical Ventilator 96 02/05/18 16:58 73 31 75 02/05/18 16:00 98.7 106 25 138/52 (80) 95 18 16:00 75 18 16:00 30 Mechanical Ventilator 18 16:00 68 02/05/18 16:00 Mechanical Ventilator Mechanical Ventilator Intake and Output 02/05/1818 18:59 06:59 Intake Total 1068 ml 1118 ml Output Total 475 ml 450 ml Balance 593 ml 668 ml Free Water 50 ml IV Total 418 ml 418 ml Tube Feeding 600 ml 600 ml Other 100 ml Output Urine Total 475 ml 450 ml Height (Feet): 5 Height (Inches): 9.00 Weight (Pounds): 190 General Appearance: confused Respiratory/Chest: crackles/rales Abdomen: soft Edwin Corrigan MD Feb 06, 2018 15:35
--- NOTE | 2018-02-06 18:47 | General Progress Note ---
Assessment/Plan Assessment/Plan # Leukocytosis. Secondary to sepsis and pna. is on abx at this time --> WBC improving 16k--> 12k-->13k-->12.2k-->14.2k --> Peripheral smear reviewed and no blasts are noted --> Medications have been reviewed --> Imaging has been reviewed, reveals apparent worsening of bilateral parenchymal disease --> Blood cultures and urine cultures are reviewed as well --> S/P abx, empiric treatment per id # Anemia of chronic disease due to underlying chronic medical issues, multifactorial. --> Given downtrending hgb, will order a anemia panel - pending --> Cont to monitor for stability --> Hgb goal >7, transfuse prn --> hgb 13-->11.2-->11-->9.5-->9.6 # Coagulopathy is now off hep gtt --> hepatitis A++, HIV negative --> ptt and mixing study - elevated at 30.8 # Respiratory failure is on a vent. --> Pt unable to wean off of vent --> per pulm # Pneumonia. s/p abx # Urinary tract infection. --> s/p abx # Status post recurrent falls. # Sepsis. # Dehydration. # Afib and now in sr --> as per cards GREATLY APPRECIATE CONSULTATION. Subjective Constitutional: Denies: no symptoms, chills, diaphoresis, fever, malaise, weakness, other HEENT: Denies: no symptoms, eye pain, blurred vision, tearing, double vision, ear pain, ear discharge, nose pain, nose congestion, throat pain, throat swelling, mouth pain, mouth swelling, other Cardiovascular: Denies: no symptoms, chest pain, edema, irregular heart rate, lightheadedness, palpitations, syncope, other Respiratory: Denies: no symptoms, cough, orthopnea, shortness of breath, SOB with excertion, SOB at rest, sputum, stridor, wheezing, other Gastrointestinal/Abdominal: Denies: no symptoms, abdomen distended, abdominal pain, black stools, tarry stools, blood in stool, constipated, diarrhea, difficulty swallowing, nausea, poor appetite, poor fluid intake, rectal bleeding , vomiting, other Genitourinary: Denies: no symptoms, burning, discharge, frequency, flank pain, hematuria, incontinence, pain, urgency, other Neurologic/Psychiatric: Denies: no symptoms, anxiety, depressed, emotional problems, headache, numbness, paresthesia, pre-existing deficit, seizure, tingling, tremors, weakness, other Endocrine: Denies: no symptoms, excessive sweating, flushing, intolerance to cold, intolerance to heat, increased hunger, increased thirst, increased urine, unexplained weight gain, unexplained weight loss, other Hematologic/Lymphatic: Denies: no symptoms, anemia, easy bleeding, easy bruising, other Allergies: Coded Allergies: No Known Allergies (Unverified , 01/24/18) Subjective Pt awake and agitated. Pt remains in ICU, on vent. Difficult to wean off of vent Objective Last 24 Hour Vital Signs Date Time Temp Pulse Resp B/P (MAP) Pulse Ox O2 Delivery O2 Flow Rate FiO2 02/06/18 18:00 95 30 110/54 (72) 94 02/06/18 18:00 30 Mechanical Ventilator 02/06/18 17:38 30 Mechanical Ventilator 02/06/18 17:00 74 30 121/62 (81) 92 02/06/18 17:00 30 Mechanical Ventilator 02/06/18 16:37 81 30 85 02/06/18 16:30 89 30 138/55 (82) 82 02/06/18 16:00 98.5 80 22 135/55 (81) 83 02/06/18 16:00 Mechanical Ventilator Mechanical Ventilator 02/06/18 16:00 30 Mechanical Ventilator 02/06/18 16:00 70 02/06/18 16:00 98.5 02/06/18 16:00 112 02/06/18 15:30 79 0 121/54 (76) 93 02/06/18 15:00 30 Mechanical Ventilator 02/06/18 15:00 69 30 123/54 (77) 94 02/06/18 14:56 69 30 70 02/06/18 14:00 70 29 113/54 (73) 89 02/06/18 14:00 30 Mechanical Ventilator 02/06/18 13:30 76 30 113/56 (75) 94 02/06/18 13:07 63 30 70 02/06/18 13:00 30 Mechanical Ventilator 02/06/18 13:00 64 31 93 Mechanical Ventilator 70 02/06/18 13:00 69 30 92/49 (63) 92 18 12:47 30 Mechanical Ventilator 18 12:43 66 30 95 Mechanical Ventilator 70 18 12:30 68 28 106/54 (71) 87 18 12:00 70 02/06/18 12:00 98.7 105 30 117/62 (80) 92 18 12:00 Mechanical Ventilator Mechanical Ventilator 18 12:00 67 18 11:30 67 23 125/54 (77) 87 18 11:00 65 30 128/59 (82) 90 18 11:00 30 Mechanical Ventilator 18 10:54 73 30 70 18 10:30 63 31 115/55 (75) 94 18 10:00 68 20 151/61 (91) 87 18 10:00 30 Mechanical Ventilator 18 09:30 100 26 153/132 (139) 80 18 09:00 30 Mechanical Ventilator 18 09:00 60 30 119/56 (77) 91 18 08:42 61 30 70 18 08:40 90 18 08:30 75 29 138/60 (86) 90 18 08:17 30 Mechanical Ventilator 18 08:16 76 127/57 02/06/18 08:00 70 18 08:00 66 18 08:00 Mechanical Ventilator Mechanical Ventilator 02/06/18 08:00 98.0 76 30 127/57 (80) 95 18 08:00 30 Mechanical Ventilator 18 07:30 64 18 120/71 (87) 96 02/06/18 07:16 67 31 92 Mechanical Ventilator 70 18 07:06 65 30 95 Mechanical Ventilator 70 18 07:03 61 30 70 02/06/18 07:00 76 30 110/52 (71) 97 17/18 07:00 30 Mechanical Ventilator 70 02/06/18 06:30 62 30 108/50 (69) 96 02/06/18 06:00 64 30 132/50 (77) 97 02/06/18 06:00 30 Mechanical Ventilator 70 12/17/18 05:30 65 30 103/50 (67) 96 18 05:00 62 30 134/59 (84) 95 18 04:59 65 30 70 18 04:30 71 29 129/58 (81) 91 18 04:00 70 18 04:00 25 Mechanical Ventilator 70 02/06/18 04:00 Mechanical Ventilator Mechanical Ventilator 02/06/18 04:00 98.5 72 25 136/60 (85) 90 02/06/18 03:35 73 18 03:30 71 28 141/65 (90) 92 02/06/18 03:16 73 30 70 02/06/18 03:00 72 28 134/93 (107) 89 02/06/18 03:00 28 Mechanical Ventilator 70 02/06/18 02:30 71 21 148/60 (89) 95 02/06/18 02:00 70 22 129/58 (81) 91 02/06/18 02:00 22 Mechanical Ventilator 70 02/06/18 01:30 69 27 146/86 (106) 93 02/06/18 01:25 75 31 100 Mechanical Ventilator 75 02/06/18 01:13 75 02/06/18 01:13 71 30 99 Mechanical Ventilator 70 02/06/18 01:13 71 30 70 02/06/18 01:00 67 31 143/68 (93) 97 02/06/18 01:00 30 Mechanical Ventilator 70 02/06/18 00:30 61 30 114/55 (74) 98 02/06/18 00:04 62 02/06/18 00:00 98.7 61 30 114/54 (74) 99 18 00:00 30 Mechanical Ventilator 70 02/06/18 00:00 Mechanical Ventilator Mechanical Ventilator 02/06/18 00:00 70 02/05/18 23:30 61 30 83/53 (63) 99 18 23:28 60 30 70 18 23:00 30 Mechanical Ventilator 70 18 23:00 62 30 102/50 (67) 100 18 22:30 59 30 104/55 (71) 98 02/05/18 22:00 30 Mechanical Ventilator 70 18 22:00 60 30 126/63 (84) 95 02/05/18 21:30 59 30 109/57 (74) 97 02/05/18 21:16 84 30 75 02/05/18 21:03 76 129/64 02/05/18 21:00 21 Mechanical Ventilator 70 02/05/18 21:00 76 21 129/64 (85) 97 02/05/18 20:30 107 21 142/63 (89) 97 02/05/18 20:29 22 Mechanical Ventilator 70 02/05/18 20:02 77 02/05/18 20:00 Mechanical Ventilator Mechanical Ventilator 02/05/18 20:00 98.6 78 30 140/63 (88) 97 02/05/18 20:00 70 02/05/18 20:00 30 Mechanical Ventilator 70 02/05/18 19:43 71 31 100 Mechanical Ventilator 75 02/05/18 19:32 75 02/05/18 19:32 73 30 75 02/05/18 19:32 73 30 100 Mechanical Ventilator 75 02/05/18 19:30 72 30 121/54 (76) 97 02/05/18 19:00 30 Mechanical Ventilator 95 02/05/18 19:00 66 30 106/52 (70) 97 Intake and Output 02/05/18 02/06/18 18:59 06:59 Intake Total 1068 ml 1118 ml Output Total 475 ml 450 ml Balance 593 ml 668 ml Free Water 50 ml IV Total 418 ml 418 ml Tube Feeding 600 ml 600 ml Other 100 ml Output Urine Total 475 ml 450 ml Height (Feet): 5 Height (Inches): 9.00 Weight (Pounds): 190 General Appearance: lethargic EENT: normal ENT inspection Neck: supple Cardiovascular: regular rhythm Respiratory/Chest: normal breath sounds Abdomen: non tender Extremities: non-tender Edema: 1+ Leg (L), 1+ Leg (R) Edema: mild edema Neurologic: alert Skin: warm/dry Objective Status: awake Condition: critical Lungs: rhonchi ++ VENT Heart: HR/BP stable Abdomen: soft, non-tender, active bowel sounds Extremities: no C/C/E Decubiti: location - sacral Blood Sugars: BS controlled Fabian Yung MD Feb 06, 2018 18:47
[2018-02-06] MEDS: Miralax 17gm pkt NG SCH (21:34)
--- NOTE | 2018-02-06 23:09 | Pulmonolgy Critical Care Note ---
Critical Care - Asmt/Plan Assessment/Plan: Pulmonary CCM Progress Note Critical Care - Asmt/Plan Problems: (1) Pulmonary fibrosis (2) Multifocal pneumonia (3) Respiratory disorder with ventilator dependence (4) Lactic acid acidosis (5) Abnormal LFTs (6) OLEG (acute kidney injury) (7) SIRS (systemic inflammatory response syndrome) (8) UTI (urinary tract infection) Assessment/Plan: ASSESSMENT: The patient is a 77-year-old male, current daily smoker with history of hypertension, back pain, lack of health maintenance, presenting with respiratory illness, bilateral pneumonia, lactic acidosis, abnormal kidney function and renal function likely OLEG, and shock liver. 01/26: Prog hypoxemia, inc WOB, tx'd to ICU, intubated 01/27: Gas exchange better, trops downtrending, LA resolved 01/30: Oxygenation stable, stable on vent PROBLEM LIST: 1. Bilateral parenchymal infiltrates, multilobar pneumonia on top of underlying fibrotic lung disease 2. VDRF 3. Metabolic & respiratory acidosis 4. Likely underlying pulmonary fibrosis and COPD 5. NSTEMI, likely demand ischemia 6. Lactic acidosis - RESOLVED 7. Abnormal creatinine, likely acute kidney injury - IMPROVED 8. Abnormal liver function tests - IMPROVED 9. SIRS 10. History of hypertension. 11. PNEUMONIA 12. Constipation TREATMENT PLAN: Continue ventilatory support/settings reviewed, monitor gas exchange PEEP 7, dec FiO2 to keep SaO2 > 90 and <94 AM ABG RTC and PRN DUOnebs Cefepime (D8), Vanco (D7) per ID, F/U Cx's Cautious TF's, monitor residuals ICU sedation: Fentanyl gtt for RASS - 2, Versed 2 mg IV q4 PRN F/U cardiology recs Monitor volumes and renal function, decreased IVF to 25, lasix 20 IV x 1 now Wound care GI recs, bowel regimen Discuss GOC, FC Px: Hep SQ, H2B D/W family, RN, RT and team CCT 45 Critical Care - Objective Vital Signs Noted Status: awake Condition: critical Lungs: rhonchi Heart: HR/BP stable Abdomen: soft, non-tender, active bowel sounds Extremities: no C/C/E Decubiti: location - sacral Blood Sugars: BS controlled Critical Care - Subjective ROS Limited/Unobtainable: Yes ICU Day: 7 Intubation Day: 7 Interval Events: FiO2 inc 70, PEEP 5 Secretions thin clear Edematous UE . LE Condition: critical IV Access: peripheral - x2 FI02: 70 Vent Support Breath Rate: 30 Vent Support Mode: AC Vent Tidal Volume: 600 Sputum Amount: Moderate PEEP: 5.0 PIP: 34 Fluids: D51/2NS @ 50 Drips: Fent off Tube Feeding Amount: 50 Subjective: IRENE ET-Tube: 7.5 ET Position: 23 Labs: Laboratory Tests Test 02/01/18 04:00 White Blood Count 13.1 K/UL (4.8-10.8) H Red Blood Count 3.41 M/UL (4.70-6.10) L Hemoglobin 10.8 G/DL (14.2-18.0) L Hematocrit 32.6 % (42.0-52.0) L Mean Corpuscular Volume 96 FL (80-99) Mean Corpuscular Hemoglobin 31.6 PG (27.0-31.0) H Mean Corpuscular Hemoglobin Concent 33.1 G/DL (32.0-36.0) Red Cell Distribution Width 13.4 % (11.6-14.8) Platelet Count 207 K/UL (150-450) Mean Platelet Volume 8.8 FL (6.5-10.1) Neutrophils (%) (Auto) % (45.0-75.0) Lymphocytes (%) (Auto) % (20.0-45.0) Monocytes (%) (Auto) % (1.0-10.0) Eosinophils (%) (Auto) % (0.0-3.0) Basophils (%) (Auto) % (0.0-2.0) Sodium Level 148 MMOL/L (136-145) H Potassium Level 3.8 MMOL/L (3.5-5.1) Chloride Level 112 MMOL/L (98-107) H Carbon Dioxide Level 31 MMOL/L (21-32) Anion Gap 5 mmol/L (5-15) Blood Urea Nitrogen 36 mg/dL (7-18) H Creatinine 0.8 MG/DL (0.55-1.30) Estimat Glomerular Filtration Rate mL/min (>60) Glucose Level 125 MG/DL (74-106) H Calcium Level 8.1 MG/DL (8.5-10.1) L Phosphorus Level 3.2 MG/DL (2.5-4.9) Magnesium Level 1.8 MG/DL (1.8-2.4) Total Bilirubin 0.7 MG/DL (0.2-1.0) Aspartate Amino Transf (AST/SGOT) 20 U/L (15-37) Alanine Aminotransferase (ALT/SGPT) 16 U/L (12-78) Alkaline Phosphatase 78 U/L (46-116) Total Protein 5.8 G/DL (6.4-8.2) L Albumin 1.4 G/DL (3.4-5.0) L Globulin 4.4 g/dL Albumin/Globulin Ratio 0.3 (1.0-2.7) L Critical Care - Objective Last 24 Hour Vital Signs Date Time Temp Pulse Resp B/P (MAP) Pulse Ox O2 Delivery O2 Flow Rate FiO2 02/06/18 22:50 73 30 85 02/06/18 21:34 90 144/63 02/06/18 20:45 77 30 85 02/06/18 20:00 Mechanical Ventilator Mechanical Ventilator 02/06/18 20:00 85 02/06/18 20:00 72 02/06/18 19:29 71 30 85 02/06/18 19:00 71 30 111/54 (73) 95 18 19:00 30 Mechanical Ventilator 18 18:00 95 30 110/54 (72) 94 18 18:00 30 Mechanical Ventilator 02/06/18 17:38 30 Mechanical Ventilator 02/06/18 17:00 74 30 121/62 (81) 92 02/06/18 17:00 30 Mechanical Ventilator 02/06/18 16:37 81 30 85 02/06/18 16:30 89 30 138/55 (82) 82 02/06/18 16:00 98.5 80 22 135/55 (81) 83 18 16:00 Mechanical Ventilator Mechanical Ventilator 02/06/18 16:00 30 Mechanical Ventilator 02/06/18 16:00 85 02/06/18 16:00 98.5 02/06/18 16:00 112 18 15:30 79 0 121/54 (76) 93 02/06/18 15:00 30 Mechanical Ventilator 02/06/18 15:00 69 30 123/54 (77) 94 02/06/18 14:56 69 30 70 12/17/18 14:00 70 29 113/54 (73) 89 18 14:00 30 Mechanical Ventilator 18 13:30 76 30 113/56 (75) 94 18 13:07 63 30 70 18 13:00 30 Mechanical Ventilator 18 13:00 64 31 93 Mechanical Ventilator 70 18 13:00 69 30 92/49 (63) 92 02/06/18 12:47 30 Mechanical Ventilator 02/06/18 12:43 66 30 95 Mechanical Ventilator 70 18 12:30 68 28 106/54 (71) 87 02/06/18 12:00 70 18 12:00 98.7 105 30 117/62 (80) 92 02/06/18 12:00 Mechanical Ventilator Mechanical Ventilator 02/06/18 12:00 67 02/06/18 11:30 67 23 125/54 (77) 87 18 11:00 65 30 128/59 (82) 90 02/06/18 11:00 30 Mechanical Ventilator 02/06/18 10:54 73 30 70 02/06/18 10:30 63 31 115/55 (75) 94 18 10:00 68 20 151/61 (91) 87 18 10:00 30 Mechanical Ventilator 02/06/18 09:30 100 26 153/132 (139) 80 18 09:00 30 Mechanical Ventilator 02/06/18 09:00 60 30 119/56 (77) 91 18 08:42 61 30 70 18 08:40 90 18 08:30 75 29 138/60 (86) 90 18 08:17 30 Mechanical Ventilator 02/06/18 08:16 76 127/57 18 08:00 70 18 08:00 66 18 08:00 Mechanical Ventilator Mechanical Ventilator 02/06/18 08:00 98.0 76 30 127/57 (80) 95 18 08:00 30 Mechanical Ventilator 18 07:30 64 18 120/71 (87) 96 18 07:16 67 31 92 Mechanical Ventilator 70 18 07:06 65 30 95 Mechanical Ventilator 70 12/17/18 07:03 61 30 70 12/17/18 07:00 76 30 110/52 (71) 97 02/06/18 07:00 30 Mechanical Ventilator 70 18 06:30 62 30 108/50 (69) 96 18 06:00 64 30 132/50 (77) 97 18 06:00 30 Mechanical Ventilator 70 18 05:30 65 30 103/50 (67) 96 18 05:00 62 30 134/59 (84) 95 18 04:59 65 30 70 18 04:30 71 29 129/58 (81) 91 18 04:00 70 02/06/18 04:00 25 Mechanical Ventilator 70 02/06/18 04:00 Mechanical Ventilator Mechanical Ventilator 02/06/18 04:00 98.5 72 25 136/60 (85) 90 02/06/18 03:35 73 18 03:30 71 28 141/65 (90) 92 02/06/18 03:16 73 30 70 18 03:00 72 28 134/93 (107) 89 02/06/18 03:00 28 Mechanical Ventilator 70 18 02:30 71 21 148/60 (89) 95 18 02:00 70 22 129/58 (81) 91 02/06/18 02:00 22 Mechanical Ventilator 70 18 01:30 69 27 146/86 (106) 93 18 01:25 75 31 100 Mechanical Ventilator 75 02/06/18 01:13 75 02/06/18 01:13 71 30 99 Mechanical Ventilator 70 18 01:13 71 30 70 02/06/18 01:00 67 31 143/68 (93) 97 02/06/18 01:00 30 Mechanical Ventilator 70 18 00:30 61 30 114/55 (74) 98 02/06/18 00:04 62 18 00:00 98.7 61 30 114/54 (74) 99 02/06/18 00:00 30 Mechanical Ventilator 70 18 00:00 Mechanical Ventilator Mechanical Ventilator 18 00:00 70 18 23:30 61 30 83/53 (63) 99 12/16/18 23:28 60 30 70 Critical Care - Subjective ROS Limited/Unobtainable: Yes Condition: critical FI02: 85 Vent Support Breath Rate: 30 Vent Support Mode: AC Vent Tidal Volume: 600 Sputum Amount: Moderate PEEP: 7.0 PIP: 38 Tube Feeding Amount: 50 I&O: Intake and Output 02/05/18 02/06/18 19:00 07:00 Intake Total 1068 ml 1118 ml Output Total 435 ml 470 ml Balance 633 ml 648 ml Free Water 50 ml IV Total 418 ml 418 ml Tube Feeding 600 ml 600 ml Other 100 ml Output Urine Total 435 ml 470 ml ET-Tube: 7.5 ET Position: 23 Tyrel Gonzalez MD Feb 06, 2018 23:09
[2018-02-07] VITALS (25 sets, daily range): BP systolic 96–154; BP diastolic 50–93
[2018-02-07 04:53] LABS: EOSINOPHILS % (AUTO) 1.6 % (0.0-3.0); HEMATOCRIT 31.5 % (42.0-52.0); HEMOGLOBIN 10.1 G/DL (14.2-18.0); LYMPHOCYTES % (AUTO) 11.8 % (20.0-45.0); MEAN CORPUSCULAR VOLUME 97 FL (80-99); MONOCYTES % (AUTO) 8.5 % (1.0-10.0); NEUTROPHILS % (AUTO) 77.1 % (45.0-75.0); PLATELET COUNT 269 K/UL (150-450); RED BLOOD COUNT 3.26 M/UL (4.70-6.10); RED CELL DISTRIBUTION WIDTH 14.1 % (11.6-14.8)
[2018-02-07 05:19] LABS: ALANINE AMINOTRANSFERASE 19 U/L (12-78); ALBUMIN 1.4 G/DL (3.4-5.0); ALBUMIN/GLOBULIN RATIO 0.3 (1.0-2.7); ALKALINE PHOSPHATASE 68 U/L (46-116); ANION GAP 3 mmol/L (5-15); ASPARTATE AMINO TRANSFERASE 22 U/L (15-37); BILIRUBIN,TOTAL 0.5 MG/DL (0.2-1.0); BLOOD UREA NITROGEN 31 mg/dL (7-18); CALCIUM 8.1 MG/DL (8.5-10.1); CARBON DIOXIDE 35 MMOL/L (21-32); CHLORIDE 111 MMOL/L (98-107); CREATININE 0.8 MG/DL (0.55-1.30); SODIUM 149 MMOL/L (136-145)
[2018-02-07] MEDS: Metoprolol Tartrate 50mg tab ORAL SCH ×2 (09:16→20:45)
[2018-02-07] MEDS: Heparin 5000 units/ml inj SUBQ SCH ×2 (09:17→20:46)
[2018-02-07] MEDS: Cefepime HCl 1 GM in D5W 55 ML IVPB SCH ×2 (09:21→22:06)
--- NOTE | 2018-02-07 09:53 | Cardiac Electrophysiology PN ---
Assessment/Plan Assessment/Plan 1. Tyoe 2 NSTEMI. The levels are flat. No CP Due to the respiratory failure and azotemia. Echo normal EF 2. Respiratory failure, due to PNA and CHF. The patient is on the ventilator. Antibiotic per ID Failed weaning. Tracheostomy pending 3. Hypokalemia, potassium was replaced.K is 4 today 4. Azotemia and hypernatremia. On iv fluid per Dr Mclaughlin 5. Elevated bilirubin of 2.3. Down to 1.1 DW RN Subjective Subjective In ICU on the Vent and Fentanyl drip . In SR on 100% Fio2. RN at bedside Objective Last 24 Hour Vital Signs Date Time Temp Pulse Resp B/P (MAP) Pulse Ox O2 Delivery O2 Flow Rate FiO2 02/07/18 09:16 30 Mechanical Ventilator 100.0 100 02/07/18 09:16 93 118/63 02/07/18 08:42 69 30 100 02/07/18 08:00 30 Mechanical Ventilator 100 02/07/18 07:28 88 02/07/18 07:28 61 30 100 02/07/18 07:00 98.5 67 23 110/60 (77) 92 02/07/18 07:00 30 Mechanical Ventilator 02/07/18 06:00 74 30 117/56 (76) 87 02/07/18 06:00 30 Mechanical Ventilator 02/07/18 05:11 86 30 100 02/07/18 05:00 81 24 120/70 (87) 75 02/07/18 05:00 100 02/07/18 05:00 30 Mechanical Ventilator 100 02/07/18 04:00 74 24 143/77 (99) 78 02/07/18 04:00 70 02/07/18 04:00 Mechanical Ventilator Mechanical Ventilator 02/07/18 04:00 30 Mechanical Ventilator 100 02/07/18 04:00 85 02/07/18 03:04 71 31 85 02/07/18 03:00 65 30 113/56 (75) 89 02/07/18 03:00 30 Mechanical Ventilator 100 02/07/18 02:00 30 Mechanical Ventilator 02/07/18 02:00 71 28 126/56 (79) 80 02/07/18 01:17 62 30 85 02/07/18 01:00 30 Mechanical Ventilator 02/07/18 01:00 65 30 100/53 (69) 94 18 00:00 66 30 96/50 (65) 94 18 00:00 Mechanical Ventilator Mechanical Ventilator 18 00:00 30 Mechanical Ventilator 18 23:00 73 17 117/53 (74) 85 18 23:00 30 Mechanical Ventilator 18 22:50 73 30 85 02/06/18 22:00 120 29 136/70 (92) 55 18 22:00 30 Mechanical Ventilator 18 21:34 90 144/63 18 21:00 78 29 121/59 (79) 94 18 21:00 30 Mechanical Ventilator 02/06/18 20:45 77 30 85 18 20:00 Mechanical Ventilator Mechanical Ventilator 02/06/18 20:00 98.6 72 30 116/52 (73) 94 18 20:00 30 Mechanical Ventilator 100 18 20:00 85 18 20:00 72 18 19:29 71 30 85 18 19:00 71 30 111/54 (73) 95 18 19:00 30 Mechanical Ventilator 18 18:00 95 30 110/54 (72) 94 02/06/18 18:00 30 Mechanical Ventilator 18 17:38 30 Mechanical Ventilator 18 17:00 74 30 121/62 (81) 92 18 17:00 30 Mechanical Ventilator 18 16:37 81 30 85 18 16:30 89 30 138/55 (82) 82 18 16:00 98.5 80 22 135/55 (81) 83 02/06/18 16:00 Mechanical Ventilator Mechanical Ventilator 18 16:00 30 Mechanical Ventilator 18 16:00 85 18 16:00 98.5 18 16:00 112 18 15:30 79 0 121/54 (76) 93 02/06/18 15:00 30 Mechanical Ventilator 02/06/18 15:00 69 30 123/54 (77) 94 18 14:56 69 30 70 18 14:00 70 29 113/54 (73) 89 02/06/18 14:00 30 Mechanical Ventilator 02/06/18 13:30 76 30 113/56 (75) 94 02/06/18 13:07 63 30 70 02/06/18 13:00 30 Mechanical Ventilator 02/06/18 13:00 64 31 93 Mechanical Ventilator 70 02/06/18 13:00 69 30 92/49 (63) 92 02/06/18 12:47 30 Mechanical Ventilator 02/06/18 12:43 66 30 95 Mechanical Ventilator 70 02/06/18 12:30 68 28 106/54 (71) 87 02/06/18 12:00 70 02/06/18 12:00 98.7 105 30 117/62 (80) 92 02/06/18 12:00 Mechanical Ventilator Mechanical Ventilator 02/06/18 12:00 67 02/06/18 11:30 67 23 125/54 (77) 87 02/06/18 11:00 65 30 128/59 (82) 90 02/06/18 11:00 30 Mechanical Ventilator 02/06/18 10:54 73 30 70 02/06/18 10:30 63 31 115/55 (75) 94 02/06/18 10:00 68 20 151/61 (91) 87 02/06/18 10:00 30 Mechanical Ventilator Intake and Output 02/06/18 02/07/18 19:00 07:00 Intake Total 1003 ml 1051 ml Output Total 560 ml 600 ml Balance 443 ml 451 ml IV Total 403 ml 451 ml Tube Feeding 600 ml 600 ml Output Urine Total 560 ml 600 ml Laboratory Tests Test 02/07/18 04:00 White Blood Count 12.0 K/UL (4.8-10.8) H Red Blood Count 3.26 M/UL (4.70-6.10) L Hemoglobin 10.1 G/DL (14.2-18.0) L Hematocrit 31.5 % (42.0-52.0) L Mean Corpuscular Volume 97 FL (80-99) Mean Corpuscular Hemoglobin 30.9 PG (27.0-31.0) Mean Corpuscular Hemoglobin Concent 31.9 G/DL (32.0-36.0) L Red Cell Distribution Width 14.1 % (11.6-14.8) Platelet Count 269 K/UL (150-450) Mean Platelet Volume 8.0 FL (6.5-10.1) Neutrophils (%) (Auto) 77.1 % (45.0-75.0) H Lymphocytes (%) (Auto) 11.8 % (20.0-45.0) L Monocytes (%) (Auto) 8.5 % (1.0-10.0) Eosinophils (%) (Auto) 1.6 % (0.0-3.0) Basophils (%) (Auto) 1.0 % (0.0-2.0) Sodium Level 149 MMOL/L (136-145) H Potassium Level 4.0 MMOL/L (3.5-5.1) Chloride Level 111 MMOL/L (98-107) H Carbon Dioxide Level 35 MMOL/L (21-32) H Anion Gap 3 mmol/L (5-15) L Blood Urea Nitrogen 31 mg/dL (7-18) H Creatinine 0.8 MG/DL (0.55-1.30) Estimat Glomerular Filtration Rate mL/min (>60) Glucose Level 114 MG/DL (74-106) H Calcium Level 8.1 MG/DL (8.5-10.1) L Phosphorus Level 3.0 MG/DL (2.5-4.9) Magnesium Level 2.0 MG/DL (1.8-2.4) Total Bilirubin 0.5 MG/DL (0.2-1.0) Aspartate Amino Transf (AST/SGOT) 22 U/L (15-37) Alanine Aminotransferase (ALT/SGPT) 19 U/L (12-78) Alkaline Phosphatase 68 U/L (46-116) Total Protein 6.2 G/DL (6.4-8.2) L Albumin 1.4 G/DL (3.4-5.0) L Globulin 4.8 g/dL Albumin/Globulin Ratio 0.3 (1.0-2.7) L Objective HEAD AND NECK: Orally intubated.NG tube is in LUNGS: Coarse rhonchi CARDIOVASCULAR: Regular S1 and S2 with no murmur. ABDOMEN: Soft. EXTREMITIES: No pitting edema, Josep Brar MD Feb 07, 2018 09:53
--- NOTE | 2018-02-07 11:15 | Infectious Diseases Prog Note ---
Assessment/Plan Assessment/Plan A: 1. Sepsis 2. Hypoxemic respiratory failure 3. Acute renal failure. 4. Lactic acidosis. 5. Increase in bilirubin, s/p cholecystectomy 6. Pulmonary fibrosis 7. Pulmonary hypertension 8.Hepatitis A P; Continue Cefepime X 1 day Consider tracheostomy Subjective ROS Limited/Unobtainable: Yes Constitutional: Reports: no symptoms Allergies: Coded Allergies: No Known Allergies (Unverified , 01/24/18) Objective Vital Signs Last 24 Hour Vital Signs Date Time Temp Pulse Resp B/P (MAP) Pulse Ox O2 Delivery O2 Flow Rate FiO2 02/07/18 09:16 30 Mechanical Ventilator 100.0 100 02/07/18 09:16 93 118/63 02/07/18 08:42 69 30 100 02/07/18 08:00 30 Mechanical Ventilator 100 02/07/18 07:28 88 02/07/18 07:28 61 30 100 02/07/18 07:00 98.5 67 23 110/60 (77) 92 02/07/18 07:00 30 Mechanical Ventilator 02/07/18 06:00 74 30 117/56 (76) 87 02/07/18 06:00 30 Mechanical Ventilator 02/07/18 05:11 86 30 100 02/07/18 05:00 81 24 120/70 (87) 75 02/07/18 05:00 100 02/07/18 05:00 30 Mechanical Ventilator 100 02/07/18 04:00 74 24 143/77 (99) 78 02/07/18 04:00 70 02/07/18 04:00 Mechanical Ventilator Mechanical Ventilator 02/07/18 04:00 30 Mechanical Ventilator 100 02/07/18 04:00 85 02/07/18 03:04 71 31 85 02/07/18 03:00 65 30 113/56 (75) 89 02/07/18 03:00 30 Mechanical Ventilator 100 02/07/18 02:00 30 Mechanical Ventilator 02/07/18 02:00 71 28 126/56 (79) 80 02/07/18 01:17 62 30 85 02/07/18 01:00 30 Mechanical Ventilator 02/07/18 01:00 65 30 100/53 (69) 94 02/07/18 00:00 66 30 96/50 (65) 94 02/07/18 00:00 Mechanical Ventilator Mechanical Ventilator 12/18/18 00:00 30 Mechanical Ventilator 18 23:00 73 17 117/53 (74) 85 18 23:00 30 Mechanical Ventilator 18 22:50 73 30 85 18 22:00 120 29 136/70 (92) 55 18 22:00 30 Mechanical Ventilator 18 21:34 90 144/63 18 21:00 78 29 121/59 (79) 94 18 21:00 30 Mechanical Ventilator 18 20:45 77 30 85 18 20:00 Mechanical Ventilator Mechanical Ventilator 02/06/18 20:00 98.6 72 30 116/52 (73) 94 18 20:00 30 Mechanical Ventilator 100 02/06/18 20:00 85 18 20:00 72 18 19:29 71 30 85 18 19:00 71 30 111/54 (73) 95 18 19:00 30 Mechanical Ventilator 02/06/18 18:00 95 30 110/54 (72) 94 18 18:00 30 Mechanical Ventilator 18 17:38 30 Mechanical Ventilator 18 17:00 74 30 121/62 (81) 92 18 17:00 30 Mechanical Ventilator 18 16:37 81 30 85 18 16:30 89 30 138/55 (82) 82 02/06/18 16:00 98.5 80 22 135/55 (81) 83 18 16:00 Mechanical Ventilator Mechanical Ventilator 18 16:00 30 Mechanical Ventilator 18 16:00 85 02/06/18 16:00 98.5 18 16:00 112 02/06/18 15:30 79 0 121/54 (76) 93 02/06/18 15:00 30 Mechanical Ventilator 18 15:00 69 30 123/54 (77) 94 02/06/18 14:56 69 30 70 02/06/18 14:00 70 29 113/54 (73) 89 02/06/18 14:00 30 Mechanical Ventilator 18 13:30 76 30 113/56 (75) 94 18 13:07 63 30 70 12/17/18 13:00 30 Mechanical Ventilator 02/06/18 13:00 64 31 93 Mechanical Ventilator 70 02/06/18 13:00 69 30 92/49 (63) 92 02/06/18 12:47 30 Mechanical Ventilator 02/06/18 12:43 66 30 95 Mechanical Ventilator 70 02/06/18 12:30 68 28 106/54 (71) 87 02/06/18 12:00 70 02/06/18 12:00 98.7 105 30 117/62 (80) 92 02/06/18 12:00 Mechanical Ventilator Mechanical Ventilator 02/06/18 12:00 67 02/06/18 11:30 67 23 125/54 (77) 87 Height (Feet): 5 Height (Inches): 9.00 Weight (Pounds): 190 HEENT: other - orally intubated Cardiovascular: normal rate Abdomen: soft, non tender, other - NG tube Extremities: no edema Neurologic/Psychiatric: other - sedated on restraint, opens eyes Laboratory Tests Test 02/07/18 04:00 White Blood Count 12.0 K/UL (4.8-10.8) H Red Blood Count 3.26 M/UL (4.70-6.10) L Hemoglobin 10.1 G/DL (14.2-18.0) L Hematocrit 31.5 % (42.0-52.0) L Mean Corpuscular Volume 97 FL (80-99) Mean Corpuscular Hemoglobin 30.9 PG (27.0-31.0) Mean Corpuscular Hemoglobin Concent 31.9 G/DL (32.0-36.0) L Red Cell Distribution Width 14.1 % (11.6-14.8) Platelet Count 269 K/UL (150-450) Mean Platelet Volume 8.0 FL (6.5-10.1) Neutrophils (%) (Auto) 77.1 % (45.0-75.0) H Lymphocytes (%) (Auto) 11.8 % (20.0-45.0) L Monocytes (%) (Auto) 8.5 % (1.0-10.0) Eosinophils (%) (Auto) 1.6 % (0.0-3.0) Basophils (%) (Auto) 1.0 % (0.0-2.0) Sodium Level 149 MMOL/L (136-145) H Potassium Level 4.0 MMOL/L (3.5-5.1) Chloride Level 111 MMOL/L (98-107) H Carbon Dioxide Level 35 MMOL/L (21-32) H Anion Gap 3 mmol/L (5-15) L Blood Urea Nitrogen 31 mg/dL (7-18) H Creatinine 0.8 MG/DL (0.55-1.30) Estimat Glomerular Filtration Rate mL/min (>60) Glucose Level 114 MG/DL (74-106) H Calcium Level 8.1 MG/DL (8.5-10.1) L Phosphorus Level 3.0 MG/DL (2.5-4.9) Magnesium Level 2.0 MG/DL (1.8-2.4) Total Bilirubin 0.5 MG/DL (0.2-1.0) Aspartate Amino Transf (AST/SGOT) 22 U/L (15-37) Alanine Aminotransferase (ALT/SGPT) 19 U/L (12-78) Alkaline Phosphatase 68 U/L (46-116) Total Protein 6.2 G/DL (6.4-8.2) L Albumin 1.4 G/DL (3.4-5.0) L Globulin 4.8 g/dL Albumin/Globulin Ratio 0.3 (1.0-2.7) L Current Medications Medications (Trade) Dose Ordered Sig/Chaka Route PRN Reason Start Time Stop Time Status Last Admin Dose Admin Acetaminophen (Tylenol) 650 mg PRN PRN RECTAL Prn Headache/Temp > 101 01/26/18 22:15 02/23/18 22:14 01/28/18 20:35 Cefepime HCl 1 gm/ Dextrose 55 ml @ 110 mls/hr Q12HR@1000,2200 IVPB 01/30/18 10:00 02/10/18 09:59 02/07/18 09:21 Dextrose/Sodium Chloride 1,000 ml @ 25 mls/hr Q24H IV 02/02/18 14:00 02/28/18 13:59 02/06/18 13:24 Diphenhydramine HCl (Benadryl) 25 mg Q6H PRN IVP Itching 01/26/18 22:15 02/25/18 22:14 Famotidine (Pepcid I.v.) 20 mg Q12HR IVP 01/26/18 10:00 02/24/18 09:59 02/07/18 09:15 Fentanyl Citrate 1000 mcg/Sodium Chloride 100 ml @ 0 mls/hr Q24H IV 02/02/18 15:13 02/09/18 15:12 02/07/18 09:16 Haloperidol Lactate (Haldol) 5 mg Q6H PRN IM Agitation 01/27/18 13:00 02/26/18 12:59 02/06/18 11:47 Heparin Sodium (Porcine) (Heparin 5000 units/ml) 5,000 units EVERY 12 HOURS SUBQ 01/27/18 21:00 02/26/18 20:59 02/07/18 09:17 Lactulose (Cephulac) 20 gm DAILYPRN PRN NG Constipation 02/03/18 13:15 03/04/18 12:59 Magnesium Hydroxide (Mom) 30 ml DAILYPRN PRN ORAL Constipation 01/30/18 14:15 03/01/18 14:14 02/02/18 07:00 Metoprolol Tartrate (Lopressor) 50 mg Q12HR ORAL 01/31/18 21:00 02/25/18 20:59 02/07/18 09:16 Midazolam HCl (Versed 2mg/2ml vial) 2 mg EVERY 4 HOURS PRN IVP For Anxiety 01/26/18 10:00 02/25/18 09:59 02/02/18 02:16 Olanzapine (ZyPREXA) 2.5 mg BEDTIME PRN ORAL agitation 01/26/18 21:00 02/25/18 20:59 Ondansetron HCl (Zofran) 4 mg Q6H PRN IVP Nausea & Vomiting 01/26/18 22:15 02/25/18 22:14 Polyethylene Glycol (Miralax) 17 gm BEDTIME NG 01/31/18 21:00 03/02/18 20:59 02/06/18 21:34 Ha Tello MD Feb 07, 2018 11:15
--- NOTE | 2018-02-07 12:42 | General Surgery Progress Note ---
General Surgery-Progress Note Subjective Additional Comments peep 7 today. FiO2 100% currently. Objective Last 24 Hour Vital Signs Date Time Temp Pulse Resp B/P (MAP) Pulse Ox O2 Delivery O2 Flow Rate FiO2 02/07/18 12:00 100 02/07/18 12:00 Mechanical Ventilator Mechanical Ventilator 02/07/18 12:00 30 Mechanical Ventilator 100 02/07/18 12:00 99.3 75 24 134/64 (87) 85 02/07/18 11:15 80 34 100 02/07/18 11:00 68 25 135/65 (88) 89 02/07/18 10:00 70 26 138/64 (88) 74 02/07/18 10:00 30 Mechanical Ventilator 100 02/07/18 09:16 30 Mechanical Ventilator 100.0 100 02/07/18 09:16 93 118/63 02/07/18 09:00 98.6 69 27 142/73 (96) 91 02/07/18 08:42 69 30 100 02/07/18 08:00 66 02/07/18 08:00 Mechanical Ventilator Mechanical Ventilator 02/07/18 08:00 30 Mechanical Ventilator 100 02/07/18 08:00 68 30 110/57 (74) 93 02/07/18 07:28 88 02/07/18 07:28 61 30 100 02/07/18 07:00 98.5 67 23 110/60 (77) 92 02/07/18 07:00 30 Mechanical Ventilator 02/07/18 06:00 74 30 117/56 (76) 87 02/07/18 06:00 30 Mechanical Ventilator 02/07/18 05:11 86 30 100 02/07/18 05:00 81 24 120/70 (87) 75 02/07/18 05:00 100 02/07/18 05:00 30 Mechanical Ventilator 100 02/07/18 04:00 74 24 143/77 (99) 78 02/07/18 04:00 70 02/07/18 04:00 Mechanical Ventilator Mechanical Ventilator 02/07/18 04:00 30 Mechanical Ventilator 100 02/07/18 04:00 85 02/07/18 03:04 71 31 85 02/07/18 03:00 65 30 113/56 (75) 89 02/07/18 03:00 30 Mechanical Ventilator 100 02/07/18 02:00 30 Mechanical Ventilator 12/18/18 02:00 71 28 126/56 (79) 80 18/18 01:17 62 30 85 18 01:00 30 Mechanical Ventilator 18 01:00 65 30 100/53 (69) 94 18 00:00 66 30 96/50 (65) 94 18 00:00 Mechanical Ventilator Mechanical Ventilator 02/07/18 00:00 30 Mechanical Ventilator 02/06/18 23:00 73 17 117/53 (74) 85 02/06/18 23:00 30 Mechanical Ventilator 18 22:50 73 30 85 18 22:00 120 29 136/70 (92) 55 18 22:00 30 Mechanical Ventilator 02/06/18 21:34 90 144/63 02/06/18 21:00 78 29 121/59 (79) 94 18 21:00 30 Mechanical Ventilator 02/06/18 20:45 77 30 85 18 20:00 Mechanical Ventilator Mechanical Ventilator 02/06/18 20:00 98.6 72 30 116/52 (73) 94 02/06/18 20:00 30 Mechanical Ventilator 100 18 20:00 85 02/06/18 20:00 72 02/06/18 19:29 71 30 85 18 19:00 71 30 111/54 (73) 95 02/06/18 19:00 30 Mechanical Ventilator 18 18:00 95 30 110/54 (72) 94 02/06/18 18:00 30 Mechanical Ventilator 18 17:38 30 Mechanical Ventilator 18 17:00 74 30 121/62 (81) 92 02/06/18 17:00 30 Mechanical Ventilator 18 16:37 81 30 85 02/06/18 16:30 89 30 138/55 (82) 82 02/06/18 16:00 98.5 80 22 135/55 (81) 83 02/06/18 16:00 Mechanical Ventilator Mechanical Ventilator 18 16:00 30 Mechanical Ventilator 18 16:00 85 02/06/18 16:00 98.5 18 16:00 112 18 15:30 79 0 121/54 (76) 93 18 15:00 30 Mechanical Ventilator 12/17/18 15:00 69 30 123/54 (77) 94 02/06/18 14:56 69 30 70 02/06/18 14:00 70 29 113/54 (73) 89 02/06/18 14:00 30 Mechanical Ventilator 18 13:30 76 30 113/56 (75) 94 02/06/18 13:07 63 30 70 02/06/18 13:00 30 Mechanical Ventilator 02/06/18 13:00 64 31 93 Mechanical Ventilator 70 02/06/18 13:00 69 30 92/49 (63) 92 02/06/18 12:47 30 Mechanical Ventilator 02/06/18 12:43 66 30 95 Mechanical Ventilator 70 I&O Intake and Output 02/06/18 02/07/18 19:00 07:00 Intake Total 1003 ml 1051 ml Output Total 560 ml 600 ml Balance 443 ml 451 ml IV Total 403 ml 451 ml Tube Feeding 600 ml 600 ml Output Urine Total 560 ml 600 ml Dressing: other Wound: other Drains: other Cardiovascular: RSR Respiratory: decreased breath sounds Abdomen: soft, present bowel sounds Extremities: other Laboratory Tests Test 02/07/18 04:00 White Blood Count 12.0 K/UL (4.8-10.8) H Red Blood Count 3.26 M/UL (4.70-6.10) L Hemoglobin 10.1 G/DL (14.2-18.0) L Hematocrit 31.5 % (42.0-52.0) L Mean Corpuscular Volume 97 FL (80-99) Mean Corpuscular Hemoglobin 30.9 PG (27.0-31.0) Mean Corpuscular Hemoglobin Concent 31.9 G/DL (32.0-36.0) L Red Cell Distribution Width 14.1 % (11.6-14.8) Platelet Count 269 K/UL (150-450) Mean Platelet Volume 8.0 FL (6.5-10.1) Neutrophils (%) (Auto) 77.1 % (45.0-75.0) H Lymphocytes (%) (Auto) 11.8 % (20.0-45.0) L Monocytes (%) (Auto) 8.5 % (1.0-10.0) Eosinophils (%) (Auto) 1.6 % (0.0-3.0) Basophils (%) (Auto) 1.0 % (0.0-2.0) Sodium Level 149 MMOL/L (136-145) H Potassium Level 4.0 MMOL/L (3.5-5.1) Chloride Level 111 MMOL/L (98-107) H Carbon Dioxide Level 35 MMOL/L (21-32) H Anion Gap 3 mmol/L (5-15) L Blood Urea Nitrogen 31 mg/dL (7-18) H Creatinine 0.8 MG/DL (0.55-1.30) Estimat Glomerular Filtration Rate mL/min (>60) Glucose Level 114 MG/DL (74-106) H Calcium Level 8.1 MG/DL (8.5-10.1) L Phosphorus Level 3.0 MG/DL (2.5-4.9) Magnesium Level 2.0 MG/DL (1.8-2.4) Total Bilirubin 0.5 MG/DL (0.2-1.0) Aspartate Amino Transf (AST/SGOT) 22 U/L (15-37) Alanine Aminotransferase (ALT/SGPT) 19 U/L (12-78) Alkaline Phosphatase 68 U/L (46-116) Total Protein 6.2 G/DL (6.4-8.2) L Albumin 1.4 G/DL (3.4-5.0) L Globulin 4.8 g/dL Albumin/Globulin Ratio 0.3 (1.0-2.7) L Plan Problems: (1) Decubitus ulcer of sacral region, stage 3 Assessment & Plan: Stage III full thickness pressure injury sacrum present on admission (L)2cm x (W)1.8cm ,wound bed with 80% yellow slough ,20% granular Borders slightly macerated. Non-blanching erythema without elevation in skin temp, or induration periwound. NO odor noted. Abrasions noted to R elbow (L)3.2cm x (W)1.9cm.Wound with Biofilm ,erythema al; lynn borders .Periwound clean and intact. Abrasion noted to L elbow(L)5.5cm x (W)1.6cm ,biofim noted to wound bed .erythema along borders .Periwound without erythema or elevation in skin temp. Abrasion lateral L knee with dry scab. Abrasion medial R knee with dry scab. Bilat heels boggy with non-blanching erythema. Non-tender when palpated. Pt repositioned with pillow on his side but restless and repositioned self on back. given critical condition will continue with maximal efforts to reduce worsening wounds as in this condition may deteriorate Tx.Plan: Cleanse R and L elbows with Saline.Apply Silvasorb Gel to both elbows .Cover with Optifoam drsg .Change every 3 Days and prn. Cleanse Sacral Pressure injury with Saline.Apply Therahoney .Cavilon periwound.Cover with Optifoam drsg Daily and prn. Apply Cavilon to Both heels.Cover with Optifoam drsg .Change Every 7 days and prn. Cavilon to abrasions R and L lower ext.Cover with Optifoam change every 7 days and prn. Off-load heels with pillow. Reposition at least every 2 hours or as tolerated. Surface support mattress. (2) Abnormal LFTs Assessment & Plan: US reviewed - absent GB dilated ducts CT reviewed - dilated duct without notable obstruction LFT's noted and elevated t bili trending down no jaundice AST/ALT nml Alk phos nml leukocytosis trending down -no acute surgical intervention necessary -t bili and d bili correlate. unlikely obstructive at this time. especially with history of cholecystectomy prior -trend labs thank you (3) Severe sepsis Assessment & Plan: not weaning off vent easy. will likely require oil heaterman vent support vent requirement high consider trach soon but not ready yet unlikely to be able to wean off vent Myke Merino Feb 07, 2018 12:42
[2018-02-07] MEDS: D5 1/2NS 1,000 ML IV SCH (14:29)
--- NOTE | 2018-02-07 14:46 | General Progress Note ---
Assessment/Plan Status: unchanged Assessment/Plan # Leukocytosis. Secondary to sepsis and pna. is on abx at this time --> WBC improving 16k--> 12k-->13k-->12.2k-->14.2k-->12 --> Peripheral smear reviewed and no blasts are noted --> Medications have been reviewed --> Imaging has been reviewed, reveals apparent worsening of bilateral parenchymal disease --> Blood cultures and urine cultures are reviewed as well --> S/P abx, empiric treatment per id # Anemia of chronic disease due to underlying chronic medical issues, multifactorial. --> Anemia panel has been reviewed. Ferritin at 674 --> Cont to monitor for stability --> Hgb goal >7, transfuse prn --> hgb 13-->11.2-->11-->9.5-->9.6 # Coagulopathy is now off hep gtt --> hepatitis A++, HIV negative --> ptt and mixing study - elevated at 30.8 # Respiratory failure is on a vent. --> Intubated --> Pt unable to wean off of vent --> per pulm --> Trach pending # Pneumonia. s/p abx # Urinary tract infection. --> s/p abx # Status post recurrent falls. # Sepsis. # Dehydration. # Afib and now in sr --> as per cards GREATLY APPRECIATE CONSULTATION. Subjective Date patient seen: Feb 07, 2018 ROS Limited/Unobtainable: Yes Hematologic/Lymphatic: Reports: anemia Allergies: Coded Allergies: No Known Allergies (Unverified , 01/24/18) Subjective Pt awake and agitated. Pt remains in ICU, on vent. CXR shows slight worsening of pulmonary parenchymal disease on the left. Trach pending. Objective Last 24 Hour Vital Signs Date Time Temp Pulse Resp B/P (MAP) Pulse Ox O2 Delivery O2 Flow Rate FiO2 02/07/18 14:00 63 27 111/58 (75) 89 02/07/18 13:00 69 27 145/67 (93) 85 02/07/18 13:00 72 31 100 02/07/18 12:00 100 02/07/18 12:00 Mechanical Ventilator Mechanical Ventilator 02/07/18 12:00 71 02/07/18 12:00 30 Mechanical Ventilator 100 02/07/18 12:00 99.3 75 24 134/64 (87) 85 02/07/18 11:15 80 34 100 02/07/18 11:00 68 25 135/65 (88) 89 02/07/18 10:00 70 26 138/64 (88) 74 18 10:00 30 Mechanical Ventilator 100 02/07/18 09:16 30 Mechanical Ventilator 100.0 100 02/07/18 09:16 93 118/63 02/07/18 09:00 98.6 69 27 142/73 (96) 91 02/07/18 08:42 69 30 100 02/07/18 08:00 66 02/07/18 08:00 Mechanical Ventilator Mechanical Ventilator 02/07/18 08:00 30 Mechanical Ventilator 100 02/07/18 08:00 68 30 110/57 (74) 93 02/07/18 07:28 88 02/07/18 07:28 61 30 100 02/07/18 07:00 98.5 67 23 110/60 (77) 92 02/07/18 07:00 30 Mechanical Ventilator 02/07/18 06:00 74 30 117/56 (76) 87 02/07/18 06:00 30 Mechanical Ventilator 02/07/18 05:11 86 30 100 02/07/18 05:00 81 24 120/70 (87) 75 02/07/18 05:00 100 02/07/18 05:00 30 Mechanical Ventilator 100 02/07/18 04:00 74 24 143/77 (99) 78 02/07/18 04:00 70 02/07/18 04:00 Mechanical Ventilator Mechanical Ventilator 02/07/18 04:00 30 Mechanical Ventilator 100 02/07/18 04:00 85 02/07/18 03:04 71 31 85 02/07/18 03:00 65 30 113/56 (75) 89 02/07/18 03:00 30 Mechanical Ventilator 100 02/07/18 02:00 30 Mechanical Ventilator 02/07/18 02:00 71 28 126/56 (79) 80 02/07/18 01:17 62 30 85 02/07/18 01:00 30 Mechanical Ventilator 02/07/18 01:00 65 30 100/53 (69) 94 02/07/18 00:00 66 30 96/50 (65) 94 12/18/18 00:00 Mechanical Ventilator Mechanical Ventilator 02/07/18 00:00 30 Mechanical Ventilator 02/06/18 23:00 73 17 117/53 (74) 85 02/06/18 23:00 30 Mechanical Ventilator 02/06/18 22:50 73 30 85 18 22:00 120 29 136/70 (92) 55 02/06/18 22:00 30 Mechanical Ventilator 18 21:34 90 144/63 02/06/18 21:00 78 29 121/59 (79) 94 02/06/18 21:00 30 Mechanical Ventilator 02/06/18 20:45 77 30 85 18 20:00 Mechanical Ventilator Mechanical Ventilator 02/06/18 20:00 98.6 72 30 116/52 (73) 94 18 20:00 30 Mechanical Ventilator 100 02/06/18 20:00 85 18 20:00 72 18 19:29 71 30 85 02/06/18 19:00 71 30 111/54 (73) 95 18 19:00 30 Mechanical Ventilator 02/06/18 18:00 95 30 110/54 (72) 94 18 18:00 30 Mechanical Ventilator 18 17:38 30 Mechanical Ventilator 02/06/18 17:00 74 30 121/62 (81) 92 18 17:00 30 Mechanical Ventilator 02/06/18 16:37 81 30 85 02/06/18 16:30 89 30 138/55 (82) 82 18 16:00 98.5 80 22 135/55 (81) 83 18 16:00 Mechanical Ventilator Mechanical Ventilator 02/06/18 16:00 30 Mechanical Ventilator 18 16:00 85 18 16:00 98.5 18 16:00 112 18 15:30 79 0 121/54 (76) 93 18 15:00 30 Mechanical Ventilator 02/06/18 15:00 69 30 123/54 (77) 94 18 14:56 69 30 70 Intake and Output 18 18 19:00 07:00 Intake Total 1003 ml 1051 ml Output Total 560 ml 600 ml Balance 443 ml 451 ml IV Total 403 ml 451 ml Tube Feeding 600 ml 600 ml Output Urine Total 560 ml 600 ml Laboratory Tests 02/07/18 04:00: White Blood Count 12.0H, Red Blood Count 3.26L, Hemoglobin 10.1L, Hematocrit 31.5L, Mean Corpuscular Volume 97, Mean Corpuscular Hemoglobin 30.9, Mean Corpuscular Hemoglobin Concent 31.9L, Red Cell Distribution Width 14.1, Platelet Count 269, Mean Platelet Volume 8.0, Neutrophils (%) (Auto) 77.1H, Lymphocytes (%) (Auto) 11.8L, Monocytes (%) (Auto) 8.5, Eosinophils (%) (Auto) 1.6, Basophils (%) (Auto) 1.0, Sodium Level 149H, Potassium Level 4.0, Chloride Level 111H, Carbon Dioxide Level 35H, Anion Gap 3L, Blood Urea Nitrogen 31H, Creatinine 0.8, Estimat Glomerular Filtration Rate , Glucose Level 114H, Calcium Level 8.1L, Phosphorus Level 3.0, Magnesium Level 2.0, Total Bilirubin 0.5, Aspartate Amino Transf (AST/SGOT) 22, Alanine Aminotransferase (ALT/SGPT) 19, Alkaline Phosphatase 68, Total Protein 6.2L, Albumin 1.4L, Globulin 4.8, Albumin/Globulin Ratio 0.3L Height (Feet): 5 Height (Inches): 9.00 Weight (Pounds): 189 Objective Status: awake Condition: critical Lungs: rhonchi ++ VENT Heart: HR/BP stable Abdomen: soft, non-tender, active bowel sounds Extremities: no C/C/E Decubiti: location - sacral Blood Sugars: BS controlled Fabian Yung MD Feb 07, 2018 14:46
--- NOTE | 2018-02-07 15:24 | GI Progress Note ---
Assessment/Plan Problems: (1) Constipation ICD Codes: K59.00 - Constipation, unspecified SNOMED: 10519861 (2) Gastroparesis ICD Codes: K31.84 - Gastroparesis SNOMED: 853208027 (3) Abnormal LFTs ICD Codes: R94.5 - Abnormal results of liver function studies SNOMED: 462402596 Status: unchanged Status Narrative Discussed with Dr. Salgado Assessment/Plan hepatitis panel reviewed >> active Hep A infection anemia work up reviewed >> folate and iron deficiency recent KUB >> no acute findings Dysphagia ET tube on mech vent, possible tach. Will follow if PEG if necessary. NGTFs per RD to goal. low dose erythromycin if needed for GI motility OB stool r/o GI bleed uncollected monitor H&H, prn transfusions constipation - bowel regime >> lactulose TID ppi folate fu labs The patient was seen and examined at bedside and all new and available data was reviewed in the patients chart. I agree with the above findings, impression and plan. (Patient seen earlier today. Signature stamp does not reflect patient encounter time.). - Peter Salgado MD Subjective Subjective limited Objective Last 24 Hour Vital Signs Date Time Temp Pulse Resp B/P (MAP) Pulse Ox O2 Delivery O2 Flow Rate FiO2 02/07/18 15:02 64 30 100 02/07/18 14:00 63 27 111/58 (75) 89 02/07/18 13:00 69 27 145/67 (93) 85 02/07/18 13:00 72 31 100 02/07/18 12:00 100 02/07/18 12:00 Mechanical Ventilator Mechanical Ventilator 02/07/18 12:00 71 02/07/18 12:00 30 Mechanical Ventilator 100 02/07/18 12:00 99.3 75 24 134/64 (87) 85 02/07/18 11:15 80 34 100 02/07/18 11:00 68 25 135/65 (88) 89 02/07/18 10:00 70 26 138/64 (88) 74 02/07/18 10:00 30 Mechanical Ventilator 100 02/07/18 09:16 30 Mechanical Ventilator 100.0 100 02/07/18 09:16 93 118/63 02/07/18 09:00 98.6 69 27 142/73 (96) 91 02/07/18 08:42 69 30 100 02/07/18 08:00 66 02/07/18 08:00 Mechanical Ventilator Mechanical Ventilator 02/07/18 08:00 30 Mechanical Ventilator 100 02/07/18 08:00 68 30 110/57 (74) 93 18 07:28 88 18 07:28 61 30 100 02/07/18 07:00 98.5 67 23 110/60 (77) 92 02/07/18 07:00 30 Mechanical Ventilator 02/07/18 06:00 74 30 117/56 (76) 87 02/07/18 06:00 30 Mechanical Ventilator 02/07/18 05:11 86 30 100 02/07/18 05:00 81 24 120/70 (87) 75 02/07/18 05:00 100 02/07/18 05:00 30 Mechanical Ventilator 100 02/07/18 04:00 74 24 143/77 (99) 78 02/07/18 04:00 70 02/07/18 04:00 Mechanical Ventilator Mechanical Ventilator 02/07/18 04:00 30 Mechanical Ventilator 100 02/07/18 04:00 85 02/07/18 03:04 71 31 85 02/07/18 03:00 65 30 113/56 (75) 89 02/07/18 03:00 30 Mechanical Ventilator 100 02/07/18 02:00 30 Mechanical Ventilator 02/07/18 02:00 71 28 126/56 (79) 80 02/07/18 01:17 62 30 85 02/07/18 01:00 30 Mechanical Ventilator 02/07/18 01:00 65 30 100/53 (69) 94 02/07/18 00:00 66 30 96/50 (65) 94 02/07/18 00:00 Mechanical Ventilator Mechanical Ventilator 02/07/18 00:00 30 Mechanical Ventilator 02/06/18 23:00 73 17 117/53 (74) 85 02/06/18 23:00 30 Mechanical Ventilator 02/06/18 22:50 73 30 85 02/06/18 22:00 120 29 136/70 (92) 55 18 22:00 30 Mechanical Ventilator 02/06/18 21:34 90 144/63 02/06/18 21:00 78 29 121/59 (79) 94 02/06/18 21:00 30 Mechanical Ventilator 02/06/18 20:45 77 30 85 02/06/18 20:00 Mechanical Ventilator Mechanical Ventilator 02/06/18 20:00 98.6 72 30 116/52 (73) 94 18 20:00 30 Mechanical Ventilator 100 18 20:00 85 18 20:00 72 02/06/18 19:29 71 30 85 18 19:00 71 30 111/54 (73) 95 18 19:00 30 Mechanical Ventilator 02/06/18 18:00 95 30 110/54 (72) 94 18 18:00 30 Mechanical Ventilator 02/06/18 17:38 30 Mechanical Ventilator 02/06/18 17:00 74 30 121/62 (81) 92 02/06/18 17:00 30 Mechanical Ventilator 02/06/18 16:37 81 30 85 02/06/18 16:30 89 30 138/55 (82) 82 02/06/18 16:00 98.5 80 22 135/55 (81) 83 02/06/18 16:00 Mechanical Ventilator Mechanical Ventilator 02/06/18 16:00 30 Mechanical Ventilator 18 16:00 85 18 16:00 98.5 18 16:00 112 02/06/18 15:30 79 0 121/54 (76) 93 Intake and Output 02/06/1818 18:59 06:59 Intake Total 1003 ml 1051 ml Output Total 560 ml 600 ml Balance 443 ml 451 ml IV Total 403 ml 451 ml Tube Feeding 600 ml 600 ml Output Urine Total 560 ml 600 ml Laboratory Tests Test 02/07/18 04:00 White Blood Count 12.0 K/UL (4.8-10.8) H Red Blood Count 3.26 M/UL (4.70-6.10) L Hemoglobin 10.1 G/DL (14.2-18.0) L Hematocrit 31.5 % (42.0-52.0) L Mean Corpuscular Volume 97 FL (80-99) Mean Corpuscular Hemoglobin 30.9 PG (27.0-31.0) Mean Corpuscular Hemoglobin Concent 31.9 G/DL (32.0-36.0) L Red Cell Distribution Width 14.1 % (11.6-14.8) Platelet Count 269 K/UL (150-450) Mean Platelet Volume 8.0 FL (6.5-10.1) Neutrophils (%) (Auto) 77.1 % (45.0-75.0) H Lymphocytes (%) (Auto) 11.8 % (20.0-45.0) L Monocytes (%) (Auto) 8.5 % (1.0-10.0) Eosinophils (%) (Auto) 1.6 % (0.0-3.0) Basophils (%) (Auto) 1.0 % (0.0-2.0) Sodium Level 149 MMOL/L (136-145) H Potassium Level 4.0 MMOL/L (3.5-5.1) Chloride Level 111 MMOL/L (98-107) H Carbon Dioxide Level 35 MMOL/L (21-32) H Anion Gap 3 mmol/L (5-15) L Blood Urea Nitrogen 31 mg/dL (7-18) H Creatinine 0.8 MG/DL (0.55-1.30) Estimat Glomerular Filtration Rate mL/min (>60) Glucose Level 114 MG/DL (74-106) H Calcium Level 8.1 MG/DL (8.5-10.1) L Phosphorus Level 3.0 MG/DL (2.5-4.9) Magnesium Level 2.0 MG/DL (1.8-2.4) Total Bilirubin 0.5 MG/DL (0.2-1.0) Aspartate Amino Transf (AST/SGOT) 22 U/L (15-37) Alanine Aminotransferase (ALT/SGPT) 19 U/L (12-78) Alkaline Phosphatase 68 U/L (46-116) Total Protein 6.2 G/DL (6.4-8.2) L Albumin 1.4 G/DL (3.4-5.0) L Globulin 4.8 g/dL Albumin/Globulin Ratio 0.3 (1.0-2.7) L Height (Feet): 5 Height (Inches): 9.00 Weight (Pounds): 189 General Appearance: no apparent distress Cardiovascular: other - Intubated Abdominal Exam: other - NGT present Willa Woods NP Feb 07, 2018 15:24
--- NOTE | 2018-02-07 17:34 | Nephrology Progress Note ---
Assessment/Plan Problem List: (1) OLEG (acute kidney injury) Assessment: resolved (2) Abnormal LFTs (3) Lactic acid acidosis (4) UTI (urinary tract infection) (5) Respiratory disorder with ventilator dependence (6) Pulmonary fibrosis Assessment Acute renal failure, resolved high K resolved Pneumonia / Sepsis / Hypoxia / UTI HypoAlbuminemia / Proteinuria Acute respiratory failure Pulmonary fibrosis Lactic acidosis Plan Pulm support / on vent IV antibiotics Watch electrolytes Gastric support Per orders Subjective ROS Limited/Unobtainable: Yes Objective Objective Last 24 Hour Vital Signs Date Time Temp Pulse Resp B/P (MAP) Pulse Ox O2 Delivery O2 Flow Rate FiO2 02/07/18 16:00 Mechanical Ventilator Mechanical Ventilator 02/07/18 16:00 100 02/07/18 16:00 64 30 118/58 (78) 89 02/07/18 15:02 64 30 100 02/07/18 15:00 26 Mechanical Ventilator 100 02/07/18 15:00 65 30 112/58 (76) 90 02/07/18 14:00 28 Mechanical Ventilator 100 02/07/18 14:00 63 27 111/58 (75) 89 02/07/18 13:00 69 27 145/67 (93) 85 02/07/18 13:00 30 Mechanical Ventilator 100 02/07/18 13:00 72 31 100 02/07/18 12:00 100 02/07/18 12:00 Mechanical Ventilator Mechanical Ventilator 02/07/18 12:00 71 02/07/18 12:00 30 Mechanical Ventilator 100 02/07/18 12:00 99.3 75 24 134/64 (87) 85 02/07/18 11:15 80 34 100 02/07/18 11:00 68 25 135/65 (88) 89 02/07/18 10:00 70 26 138/64 (88) 74 02/07/18 10:00 30 Mechanical Ventilator 100 02/07/18 09:16 30 Mechanical Ventilator 100.0 100 02/07/18 09:16 93 118/63 02/07/18 09:00 98.6 69 27 142/73 (96) 91 02/07/18 08:42 69 30 100 02/07/18 08:00 66 02/07/18 08:00 Mechanical Ventilator Mechanical Ventilator 02/07/18 08:00 30 Mechanical Ventilator 100 02/07/18 08:00 68 30 110/57 (74) 93 18 07:28 88 18 07:28 61 30 100 18 07:00 98.5 67 23 110/60 (77) 92 18 07:00 30 Mechanical Ventilator 02/07/18 06:00 74 30 117/56 (76) 87 02/07/18 06:00 30 Mechanical Ventilator 02/07/18 05:11 86 30 100 02/07/18 05:00 81 24 120/70 (87) 75 02/07/18 05:00 100 02/07/18 05:00 30 Mechanical Ventilator 100 02/07/18 04:00 74 24 143/77 (99) 78 02/07/18 04:00 70 02/07/18 04:00 Mechanical Ventilator Mechanical Ventilator 02/07/18 04:00 30 Mechanical Ventilator 100 02/07/18 04:00 85 02/07/18 03:04 71 31 85 02/07/18 03:00 65 30 113/56 (75) 89 02/07/18 03:00 30 Mechanical Ventilator 100 02/07/18 02:00 30 Mechanical Ventilator 02/07/18 02:00 71 28 126/56 (79) 80 18 01:17 62 30 85 18 01:00 30 Mechanical Ventilator 02/07/18 01:00 65 30 100/53 (69) 94 02/07/18 00:00 66 30 96/50 (65) 94 18 00:00 Mechanical Ventilator Mechanical Ventilator 02/07/18 00:00 30 Mechanical Ventilator 02/06/18 23:00 73 17 117/53 (74) 85 18 23:00 30 Mechanical Ventilator 18 22:50 73 30 85 18 22:00 120 29 136/70 (92) 55 17/18 22:00 30 Mechanical Ventilator 18 21:34 90 144/63 18 21:00 78 29 121/59 (79) 94 18 21:00 30 Mechanical Ventilator 18 20:45 77 30 85 17/18 20:00 Mechanical Ventilator Mechanical Ventilator 18 20:00 98.6 72 30 116/52 (73) 94 18 20:00 30 Mechanical Ventilator 100 02/06/18 20:00 85 02/06/18 20:00 72 18 19:29 71 30 85 02/06/18 19:00 71 30 111/54 (73) 95 02/06/18 19:00 30 Mechanical Ventilator 02/06/18 18:00 95 30 110/54 (72) 94 02/06/18 18:00 30 Mechanical Ventilator 02/06/18 17:38 30 Mechanical Ventilator Intake and Output 02/06/18 02/07/18 18:59 06:59 Intake Total 1003 ml 1051 ml Output Total 560 ml 600 ml Balance 443 ml 451 ml IV Total 403 ml 451 ml Tube Feeding 600 ml 600 ml Output Urine Total 560 ml 600 ml Laboratory Tests 02/07/18 04:00: White Blood Count 12.0H, Red Blood Count 3.26L, Hemoglobin 10.1L, Hematocrit 31.5L, Mean Corpuscular Volume 97, Mean Corpuscular Hemoglobin 30.9, Mean Corpuscular Hemoglobin Concent 31.9L, Red Cell Distribution Width 14.1, Platelet Count 269, Mean Platelet Volume 8.0, Neutrophils (%) (Auto) 77.1H, Lymphocytes (%) (Auto) 11.8L, Monocytes (%) (Auto) 8.5, Eosinophils (%) (Auto) 1.6, Basophils (%) (Auto) 1.0, Sodium Level 149H, Potassium Level 4.0, Chloride Level 111H, Carbon Dioxide Level 35H, Anion Gap 3L, Blood Urea Nitrogen 31H, Creatinine 0.8, Estimat Glomerular Filtration Rate , Glucose Level 114H, Calcium Level 8.1L, Phosphorus Level 3.0, Magnesium Level 2.0, Total Bilirubin 0.5, Aspartate Amino Transf (AST/SGOT) 22, Alanine Aminotransferase (ALT/SGPT) 19, Alkaline Phosphatase 68, Total Protein 6.2L, Albumin 1.4L, Globulin 4.8, Albumin/Globulin Ratio 0.3L Height (Feet): 5 Height (Inches): 9.00 Weight (Pounds): 189 EENT: other - vented Cardiovascular: normal rate Respiratory/Chest: decreased breath sounds Abdomen: soft Objective no change Juan C Mclaughlin MD Feb 07, 2018 17:34
[2018-02-07] MEDS: Miralax 17gm pkt NG SCH (20:45)
[2018-02-07] MEDS ORDERED: Albuterol/Ipratropium 3ml neb HHN SCH (21:15)
--- NOTE | 2018-02-07 22:04 | Pulmonolgy Critical Care Note ---
Critical Care - Asmt/Plan Assessment/Plan: Pulmonary CCM Progress Note Critical Care - Asmt/Plan Problems: (1) Pulmonary fibrosis (2) Multifocal pneumonia (3) Respiratory disorder with ventilator dependence (4) Lactic acid acidosis (5) Abnormal LFTs (6) OLEG (acute kidney injury) (7) SIRS (systemic inflammatory response syndrome) (8) UTI (urinary tract infection) Assessment/Plan: ASSESSMENT: The patient is a 77-year-old male, current daily smoker with history of hypertension, back pain, lack of health maintenance, presenting with respiratory illness, bilateral pneumonia, lactic acidosis, abnormal kidney function and renal function likely OLEG, and shock liver. 01/26: Prog hypoxemia, inc WOB, tx'd to ICU, intubated 01/27: Gas exchange better, trops downtrending, LA resolved 01/30: Oxygenation stable, stable on vent PROBLEM LIST: 1. Bilateral parenchymal infiltrates, multilobar pneumonia on top of underlying fibrotic lung disease 2. VDRF 3. Metabolic & respiratory acidosis 4. Likely underlying pulmonary fibrosis and COPD 5. NSTEMI, likely demand ischemia 6. Lactic acidosis - RESOLVED 7. Abnormal creatinine, likely acute kidney injury - IMPROVED 8. Abnormal liver function tests - IMPROVED 9. SIRS 10. History of hypertension. 11. PNEUMONIA 12. Constipation TREATMENT PLAN: Continue ventilatory support/settings reviewed, monitor gas exchange PEEP 10, adjust FiO2 to keep SaO2 > 90 and <94 ABGnegative fluid balance RTC and PRN DUOnebs Cefepime (D8), Vanco (D7) per ID, F/U Cx's Cautious TF's, monitor residuals ICU sedation: Fentanyl gtt for RASS - 2, Versed 2 mg IV q4 PRN F/U cardiology recs Monitor volumes and renal function, decreased IVF to 25, lasix 20 IV x 1 now Wound care GI recs, bowel regimen Discuss GOC, FC Px: Hep SQ, H2B D/W family, RN, RT and team CCT 45 Critical Care - Objective Vital Signs Noted Status: awake Condition: critical Lungs: rhonchi Heart: HR/BP stable Abdomen: soft, non-tender, active bowel sounds Extremities: no C/C/E Decubiti: location - sacral Blood Sugars: BS controlled Critical Care - Subjective ROS Limited/Unobtainable: Yes ICU Day: 7 Intubation Day: 7 Interval Events: FiO2 inc 70, PEEP 5 Secretions thin clear Edematous UE . LE Condition: critical IV Access: peripheral - x2 FI02: 70 Vent Support Breath Rate: 30 Vent Support Mode: AC Vent Tidal Volume: 600 Sputum Amount: Moderate PEEP: 5.0 PIP: 34 Fluids: D51/2NS @ 50 Drips: Fent off Tube Feeding Amount: 50 Subjective: IRENE ET-Tube: 7.5 ET Position: 23 Labs: Laboratory Tests Test 02/01/18 04:00 White Blood Count 13.1 K/UL (4.8-10.8) H Red Blood Count 3.41 M/UL (4.70-6.10) L Hemoglobin 10.8 G/DL (14.2-18.0) L Hematocrit 32.6 % (42.0-52.0) L Mean Corpuscular Volume 96 FL (80-99) Mean Corpuscular Hemoglobin 31.6 PG (27.0-31.0) H Mean Corpuscular Hemoglobin Concent 33.1 G/DL (32.0-36.0) Red Cell Distribution Width 13.4 % (11.6-14.8) Platelet Count 207 K/UL (150-450) Mean Platelet Volume 8.8 FL (6.5-10.1) Neutrophils (%) (Auto) % (45.0-75.0) Lymphocytes (%) (Auto) % (20.0-45.0) Monocytes (%) (Auto) % (1.0-10.0) Eosinophils (%) (Auto) % (0.0-3.0) Basophils (%) (Auto) % (0.0-2.0) Sodium Level 148 MMOL/L (136-145) H Potassium Level 3.8 MMOL/L (3.5-5.1) Chloride Level 112 MMOL/L (98-107) H Carbon Dioxide Level 31 MMOL/L (21-32) Anion Gap 5 mmol/L (5-15) Blood Urea Nitrogen 36 mg/dL (7-18) H Creatinine 0.8 MG/DL (0.55-1.30) Estimat Glomerular Filtration Rate mL/min (>60) Glucose Level 125 MG/DL (74-106) H Calcium Level 8.1 MG/DL (8.5-10.1) L Phosphorus Level 3.2 MG/DL (2.5-4.9) Magnesium Level 1.8 MG/DL (1.8-2.4) Total Bilirubin 0.7 MG/DL (0.2-1.0) Aspartate Amino Transf (AST/SGOT) 20 U/L (15-37) Alanine Aminotransferase (ALT/SGPT) 16 U/L (12-78) Alkaline Phosphatase 78 U/L (46-116) Total Protein 5.8 G/DL (6.4-8.2) L Albumin 1.4 G/DL (3.4-5.0) L Globulin 4.4 g/dL Albumin/Globulin Ratio 0.3 (1.0-2.7) L Critical Care - Objective Last 24 Hour Vital Signs Date Time Temp Pulse Resp B/P (MAP) Pulse Ox O2 Delivery O2 Flow Rate FiO2 02/07/18 21:52 72 32 100 02/07/18 21:50 72 32 100 02/07/18 21:05 34 100 02/07/18 20:45 90 140/68 02/07/18 19:42 108 30 100 02/07/18 19:00 78 31 146/83 (104) 84 02/07/18 18:00 28 Mechanical Ventilator 100 02/07/18 18:00 78 27 122/63 (82) 83 02/07/18 17:30 77 23 154/93 (113) 90 02/07/18 17:20 69 34 100 02/07/18 17:00 28 Mechanical Ventilator 100 02/07/18 17:00 68 29 120/63 (82) 90 02/07/18 16:00 61 02/07/18 16:00 30 Mechanical Ventilator 100 02/07/18 16:00 Mechanical Ventilator Mechanical Ventilator 02/07/18 16:00 100 02/07/18 16:00 98.3 64 30 118/58 (78) 89 02/07/18 15:02 64 30 100 02/07/18 15:00 26 Mechanical Ventilator 100 02/07/18 15:00 65 30 112/58 (76) 90 02/07/18 14:00 28 Mechanical Ventilator 100 02/07/18 14:00 63 27 111/58 (75) 89 02/07/18 13:00 69 27 145/67 (93) 85 02/07/18 13:00 30 Mechanical Ventilator 100 02/07/18 13:00 72 31 100 02/07/18 12:00 100 02/07/18 12:00 Mechanical Ventilator Mechanical Ventilator 02/07/18 12:00 71 02/07/18 12:00 30 Mechanical Ventilator 100 02/07/18 12:00 99.3 75 24 134/64 (87) 85 18 11:15 80 34 100 02/07/18 11:00 68 25 135/65 (88) 89 02/07/18 10:00 70 26 138/64 (88) 74 02/07/18 10:00 30 Mechanical Ventilator 100 02/07/18 09:16 30 Mechanical Ventilator 100.0 100 02/07/18 09:16 93 118/63 02/07/18 09:00 98.6 69 27 142/73 (96) 91 02/07/18 08:42 69 30 100 02/07/18 08:00 66 02/07/18 08:00 Mechanical Ventilator Mechanical Ventilator 02/07/18 08:00 30 Mechanical Ventilator 100 02/07/18 08:00 68 30 110/57 (74) 93 02/07/18 07:28 88 02/07/18 07:28 61 30 100 02/07/18 07:00 98.5 67 23 110/60 (77) 92 18 07:00 30 Mechanical Ventilator 02/07/18 06:00 74 30 117/56 (76) 87 02/07/18 06:00 30 Mechanical Ventilator 02/07/18 05:11 86 30 100 02/07/18 05:00 81 24 120/70 (87) 75 02/07/18 05:00 100 02/07/18 05:00 30 Mechanical Ventilator 100 02/07/18 04:00 74 24 143/77 (99) 78 02/07/18 04:00 70 02/07/18 04:00 Mechanical Ventilator Mechanical Ventilator 02/07/18 04:00 30 Mechanical Ventilator 100 02/07/18 04:00 85 02/07/18 03:04 71 31 85 02/07/18 03:00 65 30 113/56 (75) 89 02/07/18 03:00 30 Mechanical Ventilator 100 02/07/18 02:00 30 Mechanical Ventilator 02/07/18 02:00 71 28 126/56 (79) 80 02/07/18 01:17 62 30 85 02/07/18 01:00 30 Mechanical Ventilator 02/07/18 01:00 65 30 100/53 (69) 94 02/07/18 00:00 66 30 96/50 (65) 94 02/07/18 00:00 Mechanical Ventilator Mechanical Ventilator 02/07/18 00:00 30 Mechanical Ventilator 02/06/18 23:00 73 17 117/53 (74) 85 02/06/18 23:00 30 Mechanical Ventilator 02/06/18 22:50 73 30 85 Critical Care - Subjective ROS Limited/Unobtainable: No FI02: 100 Vent Support Breath Rate: 30 Vent Support Mode: AC Vent Tidal Volume: 600 Sputum Amount: Moderate PEEP: 10.0 PIP: 44 Tube Feeding Amount: 50 I&O: Intake and Output 02/06/18 02/07/18 18:59 06:59 Intake Total 1003 ml 1051 ml Output Total 560 ml 600 ml Balance 443 ml 451 ml IV Total 403 ml 451 ml Tube Feeding 600 ml 600 ml Output Urine Total 560 ml 600 ml ET-Tube: 7.5 ET Position: 23 Tyrel Gonzalez MD Feb 07, 2018 22:04
--- NOTE | 2018-02-07 22:10 | General Progress Note ---
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 (2) Renal insufficiency ICD Codes: N28.9 - Disorder of kidney and ureter, unspecified; R65.20 - Severe sepsis without septic shock SNOMED: 837096286, 431014142 (3) UTI (urinary tract infection) ICD Codes: N39.0 - Urinary tract infection, site not specified SNOMED: 69194870, 410423476 Qualifiers: Qualified Codes: N39.0 - Urinary tract infection, site not specified (4) Pneumonia ICD Codes: J18.9 - Pneumonia, unspecified organism SNOMED: 437657980 Qualifiers: Qualified Codes: J18.1 - Lobar pneumonia, unspecified organism (5) Severe sepsis ICD Codes: A41.9 - Sepsis, unspecified organism; R65.20 - Severe sepsis without septic shock SNOMED: 96027806 (6) Hypoxia ICD Codes: R09.02 - Hypoxemia; R65.20 - Severe sepsis without septic shock SNOMED: 886215409, 623058656 (7) Pulmonary fibrosis ICD Codes: J84.10 - Pulmonary fibrosis, unspecified SNOMED: 16324448 (8) Lactic acid acidosis ICD Codes: E87.2 - Acidosis SNOMED: 24957980 (9) OLEG (acute kidney injury) ICD Codes: N17.9 - Acute kidney failure, unspecified SNOMED: 72500654 (10) Abnormal LFTs ICD Codes: R94.5 - Abnormal results of liver function studies SNOMED: 824671327 Status: unchanged Assessment/Plan severe pulmonary firbrosis resp failure pna sepsis uti rhonci intubated alert afebrile abx per id weaning per pulmonary no wheezing Subjective ROS Limited/Unobtainable: Yes Allergies: Coded Allergies: No Known Allergies (Unverified , 01/24/18) Objective Last 24 Hour Vital Signs Date Time Temp Pulse Resp B/P (MAP) Pulse Ox O2 Delivery O2 Flow Rate FiO2 02/07/18 21:52 72 32 100 02/07/18 21:52 69 31 81 Mechanical Ventilator 100 02/07/18 21:52 69 31 Mechanical Ventilator 100 02/07/18 21:50 72 32 100 02/07/18 21:05 34 100 02/07/18 20:45 90 140/68 02/07/18 19:42 108 30 100 12/18/18 19:00 78 31 146/83 (104) 84 1818 18:00 28 Mechanical Ventilator 100 18 18:00 78 27 122/63 (82) 83 1818 17:30 77 23 154/93 (113) 90 18/18 17:20 69 34 100 18 17:00 28 Mechanical Ventilator 100 18 17:00 68 29 120/63 (82) 90 18 16:00 61 18 16:00 30 Mechanical Ventilator 100 18 16:00 Mechanical Ventilator Mechanical Ventilator 18 16:00 100 18 16:00 98.3 64 30 118/58 (78) 89 18 15:02 64 30 100 02/07/18 15:00 26 Mechanical Ventilator 100 02/07/18 15:00 65 30 112/58 (76) 90 18 14:00 28 Mechanical Ventilator 100 02/07/18 14:00 63 27 111/58 (75) 89 02/07/18 13:00 69 27 145/67 (93) 85 18 13:00 30 Mechanical Ventilator 100 02/07/18 13:00 72 31 100 18 12:00 100 02/07/18 12:00 Mechanical Ventilator Mechanical Ventilator 02/07/18 12:00 71 02/07/18 12:00 30 Mechanical Ventilator 100 02/07/18 12:00 99.3 75 24 134/64 (87) 85 18 11:15 80 34 100 18 11:00 68 25 135/65 (88) 89 18 10:00 70 26 138/64 (88) 74 18 10:00 30 Mechanical Ventilator 100 18 09:16 30 Mechanical Ventilator 100.0 100 18 09:16 93 118/63 02/07/18 09:00 98.6 69 27 142/73 (96) 91 18 08:42 69 30 100 18 08:00 66 18 08:00 Mechanical Ventilator Mechanical Ventilator 02/07/18 08:00 30 Mechanical Ventilator 100 02/07/18 08:00 68 30 110/57 (74) 93 12/18/18 07:28 88 12/18/18 07:28 61 30 100 02/07/18 07:00 98.5 67 23 110/60 (77) 92 02/07/18 07:00 30 Mechanical Ventilator 02/07/18 06:00 74 30 117/56 (76) 87 02/07/18 06:00 30 Mechanical Ventilator 02/07/18 05:11 86 30 100 02/07/18 05:00 81 24 120/70 (87) 75 02/07/18 05:00 100 02/07/18 05:00 30 Mechanical Ventilator 100 02/07/18 04:00 74 24 143/77 (99) 78 02/07/18 04:00 70 02/07/18 04:00 Mechanical Ventilator Mechanical Ventilator 02/07/18 04:00 30 Mechanical Ventilator 100 02/07/18 04:00 85 02/07/18 03:04 71 31 85 02/07/18 03:00 65 30 113/56 (75) 89 02/07/18 03:00 30 Mechanical Ventilator 100 02/07/18 02:00 30 Mechanical Ventilator 02/07/18 02:00 71 28 126/56 (79) 80 02/07/18 01:17 62 30 85 02/07/18 01:00 30 Mechanical Ventilator 02/07/18 01:00 65 30 100/53 (69) 94 02/07/18 00:00 66 30 96/50 (65) 94 02/07/18 00:00 Mechanical Ventilator Mechanical Ventilator 02/07/18 00:00 30 Mechanical Ventilator 02/06/18 23:00 73 17 117/53 (74) 85 02/06/18 23:00 30 Mechanical Ventilator 02/06/18 22:50 73 30 85 Intake and Output 02/06/18 02/07/18 18:59 06:59 Intake Total 1003 ml 1051 ml Output Total 560 ml 600 ml Balance 443 ml 451 ml IV Total 403 ml 451 ml Tube Feeding 600 ml 600 ml Output Urine Total 560 ml 600 ml Laboratory Tests 02/07/18 04:00: White Blood Count 12.0H, Red Blood Count 3.26L, Hemoglobin 10.1L, Hematocrit 31.5L, Mean Corpuscular Volume 97, Mean Corpuscular Hemoglobin 30.9, Mean Corpuscular Hemoglobin Concent 31.9L, Red Cell Distribution Width 14.1, Platelet Count 269, Mean Platelet Volume 8.0, Neutrophils (%) (Auto) 77.1H, Lymphocytes (%) (Auto) 11.8L, Monocytes (%) (Auto) 8.5, Eosinophils (%) (Auto) 1.6, Basophils (%) (Auto) 1.0, Sodium Level 149H, Potassium Level 4.0, Chloride Level 111H, Carbon Dioxide Level 35H, Anion Gap 3L, Blood Urea Nitrogen 31H, Creatinine 0.8, Estimat Glomerular Filtration Rate , Glucose Level 114H, Calcium Level 8.1L, Phosphorus Level 3.0, Magnesium Level 2.0, Total Bilirubin 0.5, Aspartate Amino Transf (AST/SGOT) 22, Alanine Aminotransferase (ALT/SGPT) 19, Alkaline Phosphatase 68, Total Protein 6.2L, Albumin 1.4L, Globulin 4.8, Albumin/Globulin Ratio 0.3L 02/07/18 20:50: Arterial Blood pH 7.361, Arterial Blood Partial Pressure CO2 66.0*H, Arterial Blood Partial Pressure O2 48.0*L, Arterial Blood HCO3 36.5H, Arterial Blood Oxygen Saturation 79.9*L, Arterial Blood Base Excess 9.1*H, Dima Test Positive Height (Feet): 5 Height (Inches): 9.00 Weight (Pounds): 189 EENT: PERRL/EOMI Cardiovascular: normal rate Respiratory/Chest: rhonchi - bilaterally Abdomen: soft Edwin Corrigan MD Feb 07, 2018 22:10
[2018-02-08] VITALS (24 sets, daily range): BP systolic 95–157; BP diastolic 52–75
--- NOTE | 2018-02-08 00:31 | General Progress Note ---
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 (2) UTI (urinary tract infection) ICD Codes: N39.0 - Urinary tract infection, site not specified SNOMED: 05190347, 236043229 Qualifiers: Qualified Codes: N39.0 - Urinary tract infection, site not specified (3) Severe sepsis ICD Codes: A41.9 - Sepsis, unspecified organism; R65.20 - Severe sepsis without septic shock SNOMED: 98712950 Status: unchanged Assessment/Plan cont Haldol the family should make decisions the pt lacks capacity provided ro/st Subjective Date patient seen: Feb 06, 2018 Allergies: Coded Allergies: No Known Allergies (Unverified , 01/24/18) Subjective the pt is agitated confused and disoriented agitated Objective Last 24 Hour Vital Signs Date Time Temp Pulse Resp B/P (MAP) Pulse Ox O2 Delivery O2 Flow Rate FiO2 02/07/18 23:29 73 31 100 02/07/18 22:07 70 30 80 Mechanical Ventilator 100 02/07/18 21:52 72 32 100 02/07/18 21:52 69 31 81 Mechanical Ventilator 100 02/07/18 21:52 69 31 Mechanical Ventilator 100 02/07/18 21:50 72 32 100 02/07/18 21:05 34 100 02/07/18 20:45 90 140/68 02/07/18 19:42 108 30 100 02/07/18 19:00 78 31 146/83 (104) 84 02/07/18 18:00 28 Mechanical Ventilator 100 02/07/18 18:00 78 27 122/63 (82) 83 02/07/18 17:30 77 23 154/93 (113) 90 02/07/18 17:20 69 34 100 02/07/18 17:00 28 Mechanical Ventilator 100 02/07/18 17:00 68 29 120/63 (82) 90 02/07/18 16:00 61 02/07/18 16:00 30 Mechanical Ventilator 100 02/07/18 16:00 Mechanical Ventilator Mechanical Ventilator 02/07/18 16:00 100 02/07/18 16:00 98.3 64 30 118/58 (78) 89 02/07/18 15:02 64 30 100 02/07/18 15:00 26 Mechanical Ventilator 100 02/07/18 15:00 65 30 112/58 (76) 90 02/07/18 14:00 28 Mechanical Ventilator 100 02/07/18 14:00 63 27 111/58 (75) 89 02/07/18 13:00 69 27 145/67 (93) 85 02/07/18 13:00 30 Mechanical Ventilator 100 02/07/18 13:00 72 31 100 02/07/18 12:00 100 02/07/18 12:00 Mechanical Ventilator Mechanical Ventilator 02/07/18 12:00 71 02/07/18 12:00 30 Mechanical Ventilator 100 02/07/18 12:00 99.3 75 24 134/64 (87) 85 02/07/18 11:15 80 34 100 02/07/18 11:00 68 25 135/65 (88) 89 02/07/18 10:00 70 26 138/64 (88) 74 02/07/18 10:00 30 Mechanical Ventilator 100 02/07/18 09:16 30 Mechanical Ventilator 100.0 100 02/07/18 09:16 93 118/63 02/07/18 09:00 98.6 69 27 142/73 (96) 91 02/07/18 08:42 69 30 100 02/07/18 08:00 66 02/07/18 08:00 Mechanical Ventilator Mechanical Ventilator 02/07/18 08:00 30 Mechanical Ventilator 100 02/07/18 08:00 68 30 110/57 (74) 93 02/07/18 07:28 88 02/07/18 07:28 61 30 100 02/07/18 07:00 98.5 67 23 110/60 (77) 92 02/07/18 07:00 30 Mechanical Ventilator 02/07/18 06:00 74 30 117/56 (76) 87 02/07/18 06:00 30 Mechanical Ventilator 02/07/18 05:11 86 30 100 02/07/18 05:00 81 24 120/70 (87) 75 02/07/18 05:00 100 02/07/18 05:00 30 Mechanical Ventilator 100 02/07/18 04:00 74 24 143/77 (99) 78 02/07/18 04:00 70 02/07/18 04:00 Mechanical Ventilator Mechanical Ventilator 02/07/18 04:00 30 Mechanical Ventilator 100 02/07/18 04:00 85 02/07/18 03:04 71 31 85 02/07/18 03:00 65 30 113/56 (75) 89 02/07/18 03:00 30 Mechanical Ventilator 100 02/07/18 02:00 30 Mechanical Ventilator 02/07/18 02:00 71 28 126/56 (79) 80 02/07/18 01:17 62 30 85 02/07/18 01:00 30 Mechanical Ventilator 02/07/18 01:00 65 30 100/53 (69) 94 Intake and Output 02/07/18 02/08/18 19:00 07:00 Intake Total 952 ml Output Total 1090 ml Balance -138 ml Free Water 30 ml IV Total 322 ml Tube Feeding 600 ml Output Urine Total 1090 ml Laboratory Tests 02/07/18 04:00: White Blood Count 12.0H, Red Blood Count 3.26L, Hemoglobin 10.1L, Hematocrit 31.5L, Mean Corpuscular Volume 97, Mean Corpuscular Hemoglobin 30.9, Mean Corpuscular Hemoglobin Concent 31.9L, Red Cell Distribution Width 14.1, Platelet Count 269, Mean Platelet Volume 8.0, Neutrophils (%) (Auto) 77.1H, Lymphocytes (%) (Auto) 11.8L, Monocytes (%) (Auto) 8.5, Eosinophils (%) (Auto) 1.6, Basophils (%) (Auto) 1.0, Sodium Level 149H, Potassium Level 4.0, Chloride Level 111H, Carbon Dioxide Level 35H, Anion Gap 3L, Blood Urea Nitrogen 31H, Creatinine 0.8, Estimat Glomerular Filtration Rate , Glucose Level 114H, Calcium Level 8.1L, Phosphorus Level 3.0, Magnesium Level 2.0, Total Bilirubin 0.5, Aspartate Amino Transf (AST/SGOT) 22, Alanine Aminotransferase (ALT/SGPT) 19, Alkaline Phosphatase 68, Total Protein 6.2L, Albumin 1.4L, Globulin 4.8, Albumin/Globulin Ratio 0.3L 02/07/18 20:50: Arterial Blood pH 7.361, Arterial Blood Partial Pressure CO2 66.0*H, Arterial Blood Partial Pressure O2 48.0*L, Arterial Blood HCO3 36.5H, Arterial Blood Oxygen Saturation 79.9*L, Arterial Blood Base Excess 9.1*H, Dima Test Positive Height (Feet): 5 Height (Inches): 9.00 Weight (Pounds): 189 General Appearance: confused, agitated Collin Smith MD Feb 08, 2018 00:31
--- NOTE | 2018-02-08 00:31 | General Progress Note ---
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 (2) UTI (urinary tract infection) ICD Codes: N39.0 - Urinary tract infection, site not specified SNOMED: 27072357, 061906238 Qualifiers: Qualified Codes: N39.0 - Urinary tract infection, site not specified (3) Severe sepsis ICD Codes: A41.9 - Sepsis, unspecified organism; R65.20 - Severe sepsis without septic shock SNOMED: 10813474 Assessment/Plan cont Haldol the family should make decisions the pt lacks capacity provided ro/st Subjective Date patient seen: Feb 07, 2018 Neurologic/Psychiatric: Reports: anxiety Allergies: Coded Allergies: No Known Allergies (Unverified , 01/24/18) Subjective the pt is agitated confused and disoriented agitated Objective Last 24 Hour Vital Signs Date Time Temp Pulse Resp B/P (MAP) Pulse Ox O2 Delivery O2 Flow Rate FiO2 02/07/18 23:29 73 31 100 02/07/18 22:07 70 30 80 Mechanical Ventilator 100 02/07/18 21:52 72 32 100 02/07/18 21:52 69 31 81 Mechanical Ventilator 100 02/07/18 21:52 69 31 Mechanical Ventilator 100 02/07/18 21:50 72 32 100 02/07/18 21:05 34 100 02/07/18 20:45 90 140/68 02/07/18 19:42 108 30 100 02/07/18 19:00 78 31 146/83 (104) 84 02/07/18 18:00 28 Mechanical Ventilator 100 02/07/18 18:00 78 27 122/63 (82) 83 02/07/18 17:30 77 23 154/93 (113) 90 02/07/18 17:20 69 34 100 02/07/18 17:00 28 Mechanical Ventilator 100 02/07/18 17:00 68 29 120/63 (82) 90 02/07/18 16:00 61 02/07/18 16:00 30 Mechanical Ventilator 100 02/07/18 16:00 Mechanical Ventilator Mechanical Ventilator 02/07/18 16:00 100 02/07/18 16:00 98.3 64 30 118/58 (78) 89 02/07/18 15:02 64 30 100 02/07/18 15:00 26 Mechanical Ventilator 100 02/07/18 15:00 65 30 112/58 (76) 90 02/07/18 14:00 28 Mechanical Ventilator 100 02/07/18 14:00 63 27 111/58 (75) 89 02/07/18 13:00 69 27 145/67 (93) 85 02/07/18 13:00 30 Mechanical Ventilator 100 02/07/18 13:00 72 31 100 02/07/18 12:00 100 02/07/18 12:00 Mechanical Ventilator Mechanical Ventilator 02/07/18 12:00 71 02/07/18 12:00 30 Mechanical Ventilator 100 02/07/18 12:00 99.3 75 24 134/64 (87) 85 02/07/18 11:15 80 34 100 02/07/18 11:00 68 25 135/65 (88) 89 02/07/18 10:00 70 26 138/64 (88) 74 02/07/18 10:00 30 Mechanical Ventilator 100 02/07/18 09:16 30 Mechanical Ventilator 100.0 100 02/07/18 09:16 93 118/63 02/07/18 09:00 98.6 69 27 142/73 (96) 91 02/07/18 08:42 69 30 100 02/07/18 08:00 66 02/07/18 08:00 Mechanical Ventilator Mechanical Ventilator 02/07/18 08:00 30 Mechanical Ventilator 100 02/07/18 08:00 68 30 110/57 (74) 93 18 07:28 88 02/07/18 07:28 61 30 100 02/07/18 07:00 98.5 67 23 110/60 (77) 92 02/07/18 07:00 30 Mechanical Ventilator 02/07/18 06:00 74 30 117/56 (76) 87 02/07/18 06:00 30 Mechanical Ventilator 02/07/18 05:11 86 30 100 02/07/18 05:00 81 24 120/70 (87) 75 02/07/18 05:00 100 02/07/18 05:00 30 Mechanical Ventilator 100 02/07/18 04:00 74 24 143/77 (99) 78 02/07/18 04:00 70 02/07/18 04:00 Mechanical Ventilator Mechanical Ventilator 02/07/18 04:00 30 Mechanical Ventilator 100 02/07/18 04:00 85 02/07/18 03:04 71 31 85 02/07/18 03:00 65 30 113/56 (75) 89 02/07/18 03:00 30 Mechanical Ventilator 100 02/07/18 02:00 30 Mechanical Ventilator 02/07/18 02:00 71 28 126/56 (79) 80 02/07/18 01:17 62 30 85 02/07/18 01:00 30 Mechanical Ventilator 02/07/18 01:00 65 30 100/53 (69) 94 Intake and Output 02/07/18 02/08/18 19:00 07:00 Intake Total 952 ml Output Total 1090 ml Balance -138 ml Free Water 30 ml IV Total 322 ml Tube Feeding 600 ml Output Urine Total 1090 ml Laboratory Tests 02/07/18 04:00: White Blood Count 12.0H, Red Blood Count 3.26L, Hemoglobin 10.1L, Hematocrit 31.5L, Mean Corpuscular Volume 97, Mean Corpuscular Hemoglobin 30.9, Mean Corpuscular Hemoglobin Concent 31.9L, Red Cell Distribution Width 14.1, Platelet Count 269, Mean Platelet Volume 8.0, Neutrophils (%) (Auto) 77.1H, Lymphocytes (%) (Auto) 11.8L, Monocytes (%) (Auto) 8.5, Eosinophils (%) (Auto) 1.6, Basophils (%) (Auto) 1.0, Sodium Level 149H, Potassium Level 4.0, Chloride Level 111H, Carbon Dioxide Level 35H, Anion Gap 3L, Blood Urea Nitrogen 31H, Creatinine 0.8, Estimat Glomerular Filtration Rate , Glucose Level 114H, Calcium Level 8.1L, Phosphorus Level 3.0, Magnesium Level 2.0, Total Bilirubin 0.5, Aspartate Amino Transf (AST/SGOT) 22, Alanine Aminotransferase (ALT/SGPT) 19, Alkaline Phosphatase 68, Total Protein 6.2L, Albumin 1.4L, Globulin 4.8, Albumin/Globulin Ratio 0.3L 02/07/18 20:50: Arterial Blood pH 7.361, Arterial Blood Partial Pressure CO2 66.0*H, Arterial Blood Partial Pressure O2 48.0*L, Arterial Blood HCO3 36.5H, Arterial Blood Oxygen Saturation 79.9*L, Arterial Blood Base Excess 9.1*H, Dima Test Positive Height (Feet): 5 Height (Inches): 9.00 Weight (Pounds): 189 General Appearance: lethargic, confused, agitated Collin Smith MD Feb 08, 2018 00:31
[2018-02-08] MEDS: Albuterol/Ipratropium 3ml neb HHN SCH ×4 (01:10→19:13)
[2018-02-08 05:45] LABS: BASOPHILS % (AUTO) 0.8 % (0.0-2.0); HEMATOCRIT 31.4 % (42.0-52.0); HEMOGLOBIN 10.1 G/DL (14.2-18.0); LYMPHOCYTES % (AUTO) 11.4 % (20.0-45.0); MEAN CORPUSCULAR VOLUME 100 FL (80-99); MONOCYTES % (AUTO) 9.3 % (1.0-10.0); NEUTROPHILS % (AUTO) 77.5 % (45.0-75.0); PLATELET COUNT 300 K/UL (150-450); RED BLOOD COUNT 3.14 M/UL (4.70-6.10); RED CELL DISTRIBUTION WIDTH 14.4 % (11.6-14.8); WHITE BLOOD COUNT 12.2 K/UL (4.8-10.8)
[2018-02-08 05:46] LABS: INR 1.1 (0.9-1.1)
[2018-02-08 06:32] LABS: ALANINE AMINOTRANSFERASE 18 U/L (12-78); ALBUMIN 1.5 G/DL (3.4-5.0); ALBUMIN/GLOBULIN RATIO 0.3 (1.0-2.7); ALKALINE PHOSPHATASE 71 U/L (46-116); ANION GAP 3 mmol/L (5-15); ASPARTATE AMINO TRANSFERASE 24 U/L (15-37); BILIRUBIN,TOTAL 0.5 MG/DL (0.2-1.0); BLOOD UREA NITROGEN 31 mg/dL (7-18); CALCIUM 7.9 MG/DL (8.5-10.1); CARBON DIOXIDE 37 MMOL/L (21-32); CHLORIDE 109 MMOL/L (98-107); CREATININE 0.9 MG/DL (0.55-1.30); PHOSPHORUS 3.6 MG/DL (2.5-4.9); POTASSIUM 3.8 MMOL/L (3.5-5.1); SODIUM 149 MMOL/L (136-145)
[2018-02-08] MEDS: Heparin 5000 units/ml inj SUBQ SCH ×2 (09:00→21:25)
[2018-02-08] MEDS: Metoprolol Tartrate 50mg tab ORAL SCH ×2 (09:00→21:24)
[2018-02-08] MEDS: Cefepime HCl 1 GM in D5W 55 ML IVPB SCH ×2 (09:39→21:31)
--- NOTE | 2018-02-08 12:17 | General Progress Note ---
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 (2) UTI (urinary tract infection) ICD Codes: N39.0 - Urinary tract infection, site not specified SNOMED: 90116168, 070121096 Qualifiers: Qualified Codes: N39.0 - Urinary tract infection, site not specified (3) Severe sepsis ICD Codes: A41.9 - Sepsis, unspecified organism; R65.20 - Severe sepsis without septic shock SNOMED: 53966697 Status: unchanged Assessment/Plan cont Haldol the family should make decisions the pt lacks capacity provided ro/st Subjective Date patient seen: Feb 08, 2018 Neurologic/Psychiatric: Reports: anxiety Allergies: Coded Allergies: No Known Allergies (Unverified , 01/24/18) Subjective the pt is the same. waxing and waning. in restraints. agitated confused and disoriented agitated Objective Last 24 Hour Vital Signs Date Time Temp Pulse Resp B/P (MAP) Pulse Ox O2 Delivery O2 Flow Rate FiO2 02/08/18 11:25 102 27 100 02/08/18 10:00 82 29 130/69 (89) 85 02/08/18 09:00 84 142/61 02/08/18 09:00 85 29 138/65 (89) 85 02/08/18 08:56 84 02/08/18 08:36 84 33 100 02/08/18 08:00 75 02/08/18 08:00 Mechanical Ventilator Mechanical Ventilator 02/08/18 08:00 100 02/08/18 08:00 98.2 80 29 144/65 (91) 89 02/08/18 07:32 109 32 91 Mechanical Ventilator 100 02/08/18 07:22 111 32 100 02/08/18 07:22 111 32 87 Mechanical Ventilator 100 02/08/18 07:00 85 29 142/61 (88) 85 02/08/18 06:00 30 Mechanical Ventilator 02/08/18 06:00 108 27 139/70 (93) 81 02/08/18 05:12 81 30 100 02/08/18 05:00 98.6 75 29 157/65 (95) 69 02/08/18 05:00 27 Mechanical Ventilator 02/08/18 04:00 72 22 138/75 (96) 90 02/08/18 04:00 Mechanical Ventilator Mechanical Ventilator 02/08/18 04:00 70 02/08/18 04:00 28 Mechanical Ventilator 02/08/18 04:00 100 02/08/18 03:15 72 31 100 02/08/18 03:00 76 25 113/57 (75) 92 02/08/18 03:00 25 Mechanical Ventilator 02/08/18 02:00 98 23 107/55 (72) 93 02/08/18 02:00 30 Mechanical Ventilator 02/08/18 01:20 72 33 90 Mechanical Ventilator 100 02/08/18 01:10 98 30 90 Mechanical Ventilator 100 02/08/18 01:00 82 32 100 02/08/18 01:00 30 Mechanical Ventilator 02/08/18 01:00 78 26 108/60 (76) 89 02/08/18 00:00 100 02/08/18 00:00 30 Mechanical Ventilator 02/08/18 00:00 Mechanical Ventilator Mechanical Ventilator 02/08/18 00:00 72 02/08/18 00:00 72 29 109/65 (80) 87 02/07/18 23:29 73 31 100 02/07/18 23:00 28 Mechanical Ventilator 02/07/18 23:00 72 29 132/60 (84) 82 02/07/18 22:07 70 30 80 Mechanical Ventilator 100 02/07/18 22:06 28 Mechanical Ventilator 02/07/18 22:00 74 28 97/83 (88) 71 02/07/18 21:52 72 32 100 18 21:52 69 31 81 Mechanical Ventilator 100 02/07/18 21:52 69 31 Mechanical Ventilator 100 02/07/18 21:50 72 32 100 02/07/18 21:05 34 100 02/07/18 21:00 111 32 139/79 (99) 66 02/07/18 21:00 30 Mechanical Ventilator 02/07/18 20:45 90 140/68 18 20:00 30 Mechanical Ventilator 02/07/18 20:00 100 02/07/18 20:00 Mechanical Ventilator Mechanical Ventilator 02/07/18 20:00 83 02/07/18 20:00 98.5 84 28 112/67 (82) 86 18 19:42 108 30 100 02/07/18 19:00 30 Mechanical Ventilator 02/07/18 19:00 78 31 146/83 (104) 84 02/07/18 18:00 28 Mechanical Ventilator 100 02/07/18 18:00 78 27 122/63 (82) 83 02/07/18 17:30 77 23 154/93 (113) 90 02/07/18 17:20 69 34 100 02/07/18 17:00 28 Mechanical Ventilator 100 02/07/18 17:00 68 29 120/63 (82) 90 02/07/18 16:00 61 02/07/18 16:00 30 Mechanical Ventilator 100 02/07/18 16:00 Mechanical Ventilator Mechanical Ventilator 02/07/18 16:00 100 02/07/18 16:00 98.3 64 30 118/58 (78) 89 02/07/18 15:02 64 30 100 02/07/18 15:00 26 Mechanical Ventilator 100 02/07/18 15:00 65 30 112/58 (76) 90 02/07/18 14:00 28 Mechanical Ventilator 100 02/07/18 14:00 63 27 111/58 (75) 89 02/07/18 13:00 69 27 145/67 (93) 85 02/07/18 13:00 30 Mechanical Ventilator 100 02/07/18 13:00 72 31 100 Intake and Output 02/07/18 02/08/18 19:00 07:00 Intake Total 985 ml 1018 ml Output Total 1090 ml 600 ml Balance -105 ml 418 ml Free Water 30 ml IV Total 355 ml 418 ml Tube Feeding 600 ml 600 ml Output Urine Total 1090 ml 600 ml Laboratory Tests 02/07/18 20:50: Arterial Blood pH 7.361, Arterial Blood Partial Pressure CO2 66.0*H, Arterial Blood Partial Pressure O2 48.0*L, Arterial Blood HCO3 36.5H, Arterial Blood Oxygen Saturation 79.9*L, Arterial Blood Base Excess 9.1*H, Dima Test Positive 02/08/18 04:40: Sodium Level 149H, Potassium Level 3.8, Chloride Level 109H, Carbon Dioxide Level 37H, Anion Gap 3L, Blood Urea Nitrogen 31H, Creatinine 0.9, Estimat Glomerular Filtration Rate , Glucose Level 107H, Calcium Level 7.9L, Phosphorus Level 3.6, Magnesium Level 2.0, Total Bilirubin 0.5, Aspartate Amino Transf (AST /SGOT) 24, Alanine Aminotransferase (ALT/SGPT) 18, Alkaline Phosphatase 71, Total Protein 6.4, Albumin 1.5L, Globulin 4.9, Albumin/Globulin Ratio 0.3L 02/08/18 04:46: White Blood Count 12.2H, Red Blood Count 3.14L, Hemoglobin 10.1L, Hematocrit 31.4L, Mean Corpuscular Volume 100H, Mean Corpuscular Hemoglobin 32.1H, Mean Corpuscular Hemoglobin Concent 32.1, Red Cell Distribution Width 14.4, Platelet Count 300, Mean Platelet Volume 7.4, Neutrophils (%) (Auto) 77.5H, Lymphocytes ( %) (Auto) 11.4L, Monocytes (%) (Auto) 9.3, Eosinophils (%) (Auto) 1.0, Basophils (%) (Auto) 0.8, Prothrombin Time 12.0H, Prothromb Time International Ratio 1.1, Activated Partial Thromboplast Time 30 02/08/18 09:40: Arterial Blood pH 7.408, Arterial Blood Partial Pressure CO2 67.4*H, Arterial Blood Partial Pressure O2 42.1*L, Arterial Blood HCO3 41.6*H, Arterial Blood Oxygen Saturation 75.3*L, Arterial Blood Base Excess 14.3*H, Dima Test Positive Height (Feet): 5 Height (Inches): 9.00 Weight (Pounds): 188 General Appearance: lethargic, confused, agitated Collin Smith MD Feb 08, 2018 12:17
--- NOTE | 2018-02-08 12:27 | GI Progress Note ---
Assessment/Plan Problems: (1) Constipation ICD Codes: K59.00 - Constipation, unspecified SNOMED: 77736630 (2) Gastroparesis ICD Codes: K31.84 - Gastroparesis SNOMED: 198349909 (3) Abnormal LFTs ICD Codes: R94.5 - Abnormal results of liver function studies SNOMED: 716761780 Status: stable Status Narrative Discussed with Dr. Salgado. Assessment/Plan hepatitis panel reviewed >> active Hep A infection anemia work up reviewed >> folate and iron deficiency recent KUB >> no acute findings Dysphagia bioethics ordered NGTFs per RD to goal. low dose erythromycin if needed for GI motility OB stool r/o GI bleed uncollected monitor H&H, prn transfusions constipation - bowel regime >> lactulose TID ppi folate fu labs poor prognosis The patient was seen and examined at bedside and all new and available data was reviewed in the patients chart. I agree with the above findings, impression and plan. (Patient seen earlier today. Signature stamp does not reflect patient encounter time.). - Peter Salgado MD Subjective Subjective limited Objective Last 24 Hour Vital Signs Date Time Temp Pulse Resp B/P (MAP) Pulse Ox O2 Delivery O2 Flow Rate FiO2 02/08/18 11:25 102 27 100 02/08/18 10:00 82 29 130/69 (89) 85 02/08/18 09:00 84 142/61 02/08/18 09:00 85 29 138/65 (89) 85 02/08/18 08:56 84 02/08/18 08:36 84 33 100 02/08/18 08:00 75 02/08/18 08:00 Mechanical Ventilator Mechanical Ventilator 02/08/18 08:00 100 02/08/18 08:00 98.2 80 29 144/65 (91) 89 02/08/18 07:32 109 32 91 Mechanical Ventilator 100 02/08/18 07:22 111 32 100 02/08/18 07:22 111 32 87 Mechanical Ventilator 100 02/08/18 07:00 85 29 142/61 (88) 85 02/08/18 06:00 30 Mechanical Ventilator 02/08/18 06:00 108 27 139/70 (93) 81 02/08/18 05:12 81 30 100 02/08/18 05:00 98.6 75 29 157/65 (95) 69 12/19/18 05:00 27 Mechanical Ventilator 02/08/18 04:00 72 22 138/75 (96) 90 02/08/18 04:00 Mechanical Ventilator Mechanical Ventilator 02/08/18 04:00 70 02/08/18 04:00 28 Mechanical Ventilator 02/08/18 04:00 100 02/08/18 03:15 72 31 100 02/08/18 03:00 76 25 113/57 (75) 92 02/08/18 03:00 25 Mechanical Ventilator 02/08/18 02:00 98 23 107/55 (72) 93 02/08/18 02:00 30 Mechanical Ventilator 02/08/18 01:20 72 33 90 Mechanical Ventilator 100 02/08/18 01:10 98 30 90 Mechanical Ventilator 100 02/08/18 01:00 82 32 100 02/08/18 01:00 30 Mechanical Ventilator 02/08/18 01:00 78 26 108/60 (76) 89 02/08/18 00:00 100 02/08/18 00:00 30 Mechanical Ventilator 02/08/18 00:00 Mechanical Ventilator Mechanical Ventilator 02/08/18 00:00 72 02/08/18 00:00 72 29 109/65 (80) 87 02/07/18 23:29 73 31 100 02/07/18 23:00 28 Mechanical Ventilator 02/07/18 23:00 72 29 132/60 (84) 82 02/07/18 22:07 70 30 80 Mechanical Ventilator 100 02/07/18 22:06 28 Mechanical Ventilator 02/07/18 22:00 74 28 97/83 (88) 71 02/07/18 21:52 72 32 100 02/07/18 21:52 69 31 81 Mechanical Ventilator 100 02/07/18 21:52 69 31 Mechanical Ventilator 100 02/07/18 21:50 72 32 100 18 21:05 34 100 02/07/18 21:00 111 32 139/79 (99) 66 02/07/18 21:00 30 Mechanical Ventilator 02/07/18 20:45 90 140/68 02/07/18 20:00 30 Mechanical Ventilator 02/07/18 20:00 100 02/07/18 20:00 Mechanical Ventilator Mechanical Ventilator 02/07/18 20:00 83 02/07/18 20:00 98.5 84 28 112/67 (82) 86 18 19:42 108 30 100 02/07/18 19:00 30 Mechanical Ventilator 02/07/18 19:00 78 31 146/83 (104) 84 02/07/18 18:00 28 Mechanical Ventilator 100 02/07/18 18:00 78 27 122/63 (82) 83 18 17:30 77 23 154/93 (113) 90 02/07/18 17:20 69 34 100 02/07/18 17:00 28 Mechanical Ventilator 100 02/07/18 17:00 68 29 120/63 (82) 90 02/07/18 16:00 61 02/07/18 16:00 30 Mechanical Ventilator 100 02/07/18 16:00 Mechanical Ventilator Mechanical Ventilator 02/07/18 16:00 100 02/07/18 16:00 98.3 64 30 118/58 (78) 89 02/07/18 15:02 64 30 100 02/07/18 15:00 26 Mechanical Ventilator 100 02/07/18 15:00 65 30 112/58 (76) 90 02/07/18 14:00 28 Mechanical Ventilator 100 02/07/18 14:00 63 27 111/58 (75) 89 02/07/18 13:00 69 27 145/67 (93) 85 02/07/18 13:00 30 Mechanical Ventilator 100 02/07/18 13:00 72 31 100 Intake and Output 02/07/18 02/08/18 19:00 07:00 Intake Total 985 ml 1018 ml Output Total 1090 ml 600 ml Balance -105 ml 418 ml Free Water 30 ml IV Total 355 ml 418 ml Tube Feeding 600 ml 600 ml Output Urine Total 1090 ml 600 ml Laboratory Tests Test 02/07/18 20:50 02/08/18 04:40 02/08/18 04:46 02/08/18 09:40 Arterial Blood pH 7.361 (7.350-7.450) 7.408 (7.350-7.450) Arterial Blood Partial Pressure CO2 66.0 mmHg (35.0-45.0) *H 67.4 mmHg (35.0-45.0) *H Arterial Blood Partial Pressure O2 48.0 mmHg (75.0-100.0) 42.1 mmHg (75.0-100.0) Arterial Blood HCO3 36.5 mmol/L (22.0-26.0) H 41.6 mmol/L (22.0-26.0) *H Arterial Blood Oxygen Saturation 79.9 % (95-100) *L 75.3 % (95-100) *L Arterial Blood Base Excess 9.1 (-2-2) *H 14.3 (-2-2) *H Dima Test Positive Positive Sodium Level 149 MMOL/L (136-145) H Potassium Level 3.8 MMOL/L (3.5-5.1) Chloride Level 109 MMOL/L (98-107) H Carbon Dioxide Level 37 MMOL/L (21-32) H Anion Gap 3 mmol/L (5-15) L Blood Urea Nitrogen 31 mg/dL (7-18) H Creatinine 0.9 MG/DL (0.55-1.30) Estimat Glomerular Filtration Rate mL/min (>60) Glucose Level 107 MG/DL (74-106) H Calcium Level 7.9 MG/DL (8.5-10.1) L Phosphorus Level 3.6 MG/DL (2.5-4.9) Magnesium Level 2.0 MG/DL (1.8-2.4) Total Bilirubin 0.5 MG/DL (0.2-1.0) Aspartate Amino Transf (AST/SGOT) 24 U/L (15-37) Alanine Aminotransferase (ALT/SGPT) 18 U/L (12-78) Alkaline Phosphatase 71 U/L (46-116) Total Protein 6.4 G/DL (6.4-8.2) Albumin 1.5 G/DL (3.4-5.0) L Globulin 4.9 g/dL Albumin/Globulin Ratio 0.3 (1.0-2.7) L White Blood Count 12.2 K/UL (4.8-10.8) H Red Blood Count 3.14 M/UL (4.70-6.10) L Hemoglobin 10.1 G/DL (14.2-18.0) L Hematocrit 31.4 % (42.0-52.0) L Mean Corpuscular Volume 100 FL (80-99) H Mean Corpuscular Hemoglobin 32.1 PG (27.0-31.0) H Mean Corpuscular Hemoglobin Concent 32.1 G/DL (32.0-36.0) Red Cell Distribution Width 14.4 % (11.6-14.8) Platelet Count 300 K/UL (150-450) Mean Platelet Volume 7.4 FL (6.5-10.1) Neutrophils (%) (Auto) 77.5 % (45.0-75.0) H Lymphocytes (%) (Auto) 11.4 % (20.0-45.0) L Monocytes (%) (Auto) 9.3 % (1.0-10.0) Eosinophils (%) (Auto) 1.0 % (0.0-3.0) Basophils (%) (Auto) 0.8 % (0.0-2.0) Prothrombin Time 12.0 SEC (9.30-11.50) H Prothromb Time International Ratio 1.1 (0.9-1.1) Activated Partial Thromboplast Time 30 SEC (23-33) Height (Feet): 5 Height (Inches): 9.00 Weight (Pounds): 188 General Appearance: no apparent distress, lethargic Cardiovascular: normal rate Respiratory/Chest: other - intubated Abdominal Exam: non tender, other - NGT Extremities: non-tender Willa Woods NP Feb 08, 2018 12:27
--- NOTE | 2018-02-08 12:36 | Infectious Diseases Prog Note ---
Assessment/Plan Assessment/Plan A: 1. Sepsis 2. Hypoxemic respiratory failure 3. Acute renal failure. 4. Lactic acidosis. 5. Increase in bilirubin, s/p cholecystectomy 6. Pulmonary fibrosis 7. Pulmonary hypertension 8.Hepatitis A P; Continue Cefepime until tomorrow Consider tracheostomy Waiting for ethic committee suggestions Subjective ROS Limited/Unobtainable: Yes Neurologic: Reports: confusion, other - on restraint Allergies: Coded Allergies: No Known Allergies (Unverified , 01/24/18) Objective Vital Signs Last 24 Hour Vital Signs Date Time Temp Pulse Resp B/P (MAP) Pulse Ox O2 Delivery O2 Flow Rate FiO2 02/08/18 11:25 102 27 100 02/08/18 10:00 82 29 130/69 (89) 85 02/08/18 09:00 84 142/61 02/08/18 09:00 85 29 138/65 (89) 85 02/08/18 08:56 84 02/08/18 08:36 84 33 100 02/08/18 08:00 75 02/08/18 08:00 Mechanical Ventilator Mechanical Ventilator 02/08/18 08:00 100 02/08/18 08:00 98.2 80 29 144/65 (91) 89 02/08/18 07:32 109 32 91 Mechanical Ventilator 100 02/08/18 07:22 111 32 100 02/08/18 07:22 111 32 87 Mechanical Ventilator 100 02/08/18 07:00 85 29 142/61 (88) 85 02/08/18 06:00 30 Mechanical Ventilator 02/08/18 06:00 108 27 139/70 (93) 81 02/08/18 05:12 81 30 100 02/08/18 05:00 98.6 75 29 157/65 (95) 69 02/08/18 05:00 27 Mechanical Ventilator 02/08/18 04:00 72 22 138/75 (96) 90 02/08/18 04:00 Mechanical Ventilator Mechanical Ventilator 02/08/18 04:00 70 02/08/18 04:00 28 Mechanical Ventilator 02/08/18 04:00 100 02/08/18 03:15 72 31 100 02/08/18 03:00 76 25 113/57 (75) 92 02/08/18 03:00 25 Mechanical Ventilator 02/08/18 02:00 98 23 107/55 (72) 93 02/08/18 02:00 30 Mechanical Ventilator 02/08/18 01:20 72 33 90 Mechanical Ventilator 100 02/08/18 01:10 98 30 90 Mechanical Ventilator 100 02/08/18 01:00 82 32 100 02/08/18 01:00 30 Mechanical Ventilator 02/08/18 01:00 78 26 108/60 (76) 89 02/08/18 00:00 100 02/08/18 00:00 30 Mechanical Ventilator 02/08/18 00:00 Mechanical Ventilator Mechanical Ventilator 02/08/18 00:00 72 02/08/18 00:00 72 29 109/65 (80) 87 02/07/18 23:29 73 31 100 02/07/18 23:00 28 Mechanical Ventilator 02/07/18 23:00 72 29 132/60 (84) 82 02/07/18 22:07 70 30 80 Mechanical Ventilator 100 02/07/18 22:06 28 Mechanical Ventilator 02/07/18 22:00 74 28 97/83 (88) 71 02/07/18 21:52 72 32 100 18 21:52 69 31 81 Mechanical Ventilator 100 02/07/18 21:52 69 31 Mechanical Ventilator 100 02/07/18 21:50 72 32 100 18 21:05 34 100 18 21:00 111 32 139/79 (99) 66 18 21:00 30 Mechanical Ventilator 18 20:45 90 140/68 18 20:00 30 Mechanical Ventilator 02/07/18 20:00 100 18 20:00 Mechanical Ventilator Mechanical Ventilator 02/07/18 20:00 83 18 20:00 98.5 84 28 112/67 (82) 86 1818 19:42 108 30 100 18 19:00 30 Mechanical Ventilator 18 19:00 78 31 146/83 (104) 84 18/18 18:00 28 Mechanical Ventilator 100 18 18:00 78 27 122/63 (82) 83 18/18 17:30 77 23 154/93 (113) 90 18/18 17:20 69 34 100 18/18 17:00 28 Mechanical Ventilator 100 18 17:00 68 29 120/63 (82) 90 02/07/18 16:00 61 02/07/18 16:00 30 Mechanical Ventilator 100 02/07/18 16:00 Mechanical Ventilator Mechanical Ventilator 02/07/18 16:00 100 02/07/18 16:00 98.3 64 30 118/58 (78) 89 02/07/18 15:02 64 30 100 02/07/18 15:00 26 Mechanical Ventilator 100 02/07/18 15:00 65 30 112/58 (76) 90 02/07/18 14:00 28 Mechanical Ventilator 100 02/07/18 14:00 63 27 111/58 (75) 89 02/07/18 13:00 69 27 145/67 (93) 85 02/07/18 13:00 30 Mechanical Ventilator 100 02/07/18 13:00 72 31 100 Height (Feet): 5 Height (Inches): 9.00 Weight (Pounds): 188 HEENT: other - orally intubated Respiratory/Chest: decreased breath sounds, other - on ventilator Cardiovascular: tachycardia Abdomen: soft, non tender, other - NG tube feeding Extremities: other - edema of hands Neurologic/Psychiatric: disoriented Laboratory Tests Test 02/07/18 20:50 02/08/18 04:40 02/08/18 04:46 02/08/18 09:40 Arterial Blood pH 7.361 (7.350-7.450) 7.408 (7.350-7.450) Arterial Blood Partial Pressure CO2 66.0 mmHg (35.0-45.0) *H 67.4 mmHg (35.0-45.0) *H Arterial Blood Partial Pressure O2 48.0 mmHg (75.0-100.0) 42.1 mmHg (75.0-100.0) Arterial Blood HCO3 36.5 mmol/L (22.0-26.0) H 41.6 mmol/L (22.0-26.0) *H Arterial Blood Oxygen Saturation 79.9 % (95-100) *L 75.3 % (95-100) *L Arterial Blood Base Excess 9.1 (-2-2) *H 14.3 (-2-2) *H Dima Test Positive Positive Sodium Level 149 MMOL/L (136-145) H Potassium Level 3.8 MMOL/L (3.5-5.1) Chloride Level 109 MMOL/L (98-107) H Carbon Dioxide Level 37 MMOL/L (21-32) H Anion Gap 3 mmol/L (5-15) L Blood Urea Nitrogen 31 mg/dL (7-18) H Creatinine 0.9 MG/DL (0.55-1.30) Estimat Glomerular Filtration Rate mL/min (>60) Glucose Level 107 MG/DL (74-106) H Calcium Level 7.9 MG/DL (8.5-10.1) L Phosphorus Level 3.6 MG/DL (2.5-4.9) Magnesium Level 2.0 MG/DL (1.8-2.4) Total Bilirubin 0.5 MG/DL (0.2-1.0) Aspartate Amino Transf (AST/SGOT) 24 U/L (15-37) Alanine Aminotransferase (ALT/SGPT) 18 U/L (12-78) Alkaline Phosphatase 71 U/L (46-116) Total Protein 6.4 G/DL (6.4-8.2) Albumin 1.5 G/DL (3.4-5.0) L Globulin 4.9 g/dL Albumin/Globulin Ratio 0.3 (1.0-2.7) L White Blood Count 12.2 K/UL (4.8-10.8) H Red Blood Count 3.14 M/UL (4.70-6.10) L Hemoglobin 10.1 G/DL (14.2-18.0) L Hematocrit 31.4 % (42.0-52.0) L Mean Corpuscular Volume 100 FL (80-99) H Mean Corpuscular Hemoglobin 32.1 PG (27.0-31.0) H Mean Corpuscular Hemoglobin Concent 32.1 G/DL (32.0-36.0) Red Cell Distribution Width 14.4 % (11.6-14.8) Platelet Count 300 K/UL (150-450) Mean Platelet Volume 7.4 FL (6.5-10.1) Neutrophils (%) (Auto) 77.5 % (45.0-75.0) H Lymphocytes (%) (Auto) 11.4 % (20.0-45.0) L Monocytes (%) (Auto) 9.3 % (1.0-10.0) Eosinophils (%) (Auto) 1.0 % (0.0-3.0) Basophils (%) (Auto) 0.8 % (0.0-2.0) Prothrombin Time 12.0 SEC (9.30-11.50) H Prothromb Time International Ratio 1.1 (0.9-1.1) Activated Partial Thromboplast Time 30 SEC (23-33) Current Medications Medications (Trade) Dose Ordered Sig/Chaka Route PRN Reason Start Time Stop Time Status Last Admin Dose Admin Acetaminophen (Tylenol) 650 mg PRN PRN RECTAL Prn Headache/Temp > 101 01/26/18 22:15 02/23/18 22:14 01/28/18 20:35 Albuterol/ Ipratropium (Albuterol/ Ipratropium) 3 ml Q6HRT HHN 02/08/18 01:00 02/13/18 00:59 02/08/18 07:22 Cefepime HCl 1 gm/ Dextrose 55 ml @ 110 mls/hr Q12HR@1000,2200 IVPB 01/30/18 10:00 02/10/18 09:59 02/08/18 09:39 Dextrose/Sodium Chloride 1,000 ml @ 25 mls/hr Q24H IV 02/02/18 14:00 02/28/18 13:59 02/07/18 14:29 Diphenhydramine HCl (Benadryl) 25 mg Q6H PRN IVP Itching 01/26/18 22:15 02/25/18 22:14 Famotidine (Pepcid I.v.) 20 mg Q12HR IVP 01/26/18 10:00 02/24/18 09:59 02/08/18 09:00 Fentanyl Citrate 1000 mcg/Sodium Chloride 100 ml @ 0 mls/hr Q24H IV 02/02/18 15:13 02/09/18 15:12 02/07/18 21:05 Haloperidol Lactate (Haldol) 5 mg Q6H PRN IM Agitation 01/27/18 13:00 02/26/18 12:59 02/06/18 11:47 Heparin Sodium (Porcine) (Heparin 5000 units/ml) 5,000 units EVERY 12 HOURS SUBQ 01/27/18 21:00 02/26/18 20:59 02/08/18 09:00 Lactulose (Cephulac) 20 gm DAILYPRN PRN NG Constipation 02/03/18 13:15 03/04/18 12:59 02/07/18 17:49 Magnesium Hydroxide (Mom) 30 ml DAILYPRN PRN ORAL Constipation 01/30/18 14:15 03/01/18 14:14 02/02/18 07:00 Metoprolol Tartrate (Lopressor) 50 mg Q12HR ORAL 01/31/18 21:00 02/25/18 20:59 02/08/18 09:00 Midazolam HCl (Versed 2mg/2ml vial) 2 mg EVERY 4 HOURS PRN IVP For Anxiety 01/26/18 10:00 02/25/18 09:59 02/02/18 02:16 Olanzapine (ZyPREXA) 2.5 mg BEDTIME PRN ORAL agitation 01/26/18 21:00 02/25/18 20:59 Ondansetron HCl (Zofran) 4 mg Q6H PRN IVP Nausea & Vomiting 01/26/18 22:15 02/25/18 22:14 Polyethylene Glycol (Miralax) 17 gm BEDTIME NG 01/31/18 21:00 03/02/18 20:59 02/07/18 20:45 Ha Tello MD Feb 08, 2018 12:36
[2018-02-08] MEDS: D5 1/2NS 1,000 ML IV SCH (14:00)
--- NOTE | 2018-02-08 14:30 | Cardiac Electrophysiology PN ---
Assessment/Plan Assessment/Plan 1. Tyoe 2 NSTEMI. The levels are flat. No CP Due to the respiratory failure and azotemia. Echo normal EF 2. Respiratory failure, due to PNA and CHF. The patient is on the ventilator. Antibiotic per ID Failed weaning. Tracheostomy pending Ethics eval. 3. Hypokalemia, corrected 4. Azotemia and hypernatremia. On D5 1/[address] Mclaughlin Na still 149 5. Elevated bilirubin of 2.3. Down to 1.1 DW RN Subjective Subjective In ICU on the Vent and Fentanyl drip . In SR on 100% Fio2. Awaiting Bioethics consult. In SR Objective Last 24 Hour Vital Signs Date Time Temp Pulse Resp B/P (MAP) Pulse Ox O2 Delivery O2 Flow Rate FiO2 02/08/18 12:50 95 31 90 Mechanical Ventilator 100 02/08/18 12:40 101 30 100 02/08/18 12:40 101 32 89 Mechanical Ventilator 100 02/08/18 11:25 102 27 100 02/08/18 10:00 82 29 130/69 (89) 85 02/08/18 09:00 84 142/61 02/08/18 09:00 85 29 138/65 (89) 85 02/08/18 08:56 84 02/08/18 08:36 84 33 100 02/08/18 08:00 75 02/08/18 08:00 Mechanical Ventilator Mechanical Ventilator 02/08/18 08:00 100 02/08/18 08:00 98.2 80 29 144/65 (91) 89 02/08/18 07:32 109 32 91 Mechanical Ventilator 100 02/08/18 07:22 111 32 100 02/08/18 07:22 111 32 87 Mechanical Ventilator 100 02/08/18 07:00 85 29 142/61 (88) 85 02/08/18 06:00 30 Mechanical Ventilator 02/08/18 06:00 108 27 139/70 (93) 81 02/08/18 05:12 81 30 100 02/08/18 05:00 98.6 75 29 157/65 (95) 69 02/08/18 05:00 27 Mechanical Ventilator 02/08/18 04:00 72 22 138/75 (96) 90 02/08/18 04:00 Mechanical Ventilator Mechanical Ventilator 02/08/18 04:00 70 02/08/18 04:00 28 Mechanical Ventilator 02/08/18 04:00 100 02/08/18 03:15 72 31 100 02/08/18 03:00 76 25 113/57 (75) 92 02/08/18 03:00 25 Mechanical Ventilator 02/08/18 02:00 98 23 107/55 (72) 93 02/08/18 02:00 30 Mechanical Ventilator 02/08/18 01:20 72 33 90 Mechanical Ventilator 100 02/08/18 01:10 98 30 90 Mechanical Ventilator 100 02/08/18 01:00 82 32 100 02/08/18 01:00 30 Mechanical Ventilator 02/08/18 01:00 78 26 108/60 (76) 89 02/08/18 00:00 100 02/08/18 00:00 30 Mechanical Ventilator 02/08/18 00:00 Mechanical Ventilator Mechanical Ventilator 02/08/18 00:00 72 02/08/18 00:00 72 29 109/65 (80) 87 02/07/18 23:29 73 31 100 02/07/18 23:00 28 Mechanical Ventilator 02/07/18 23:00 72 29 132/60 (84) 82 02/07/18 22:07 70 30 80 Mechanical Ventilator 100 02/07/18 22:06 28 Mechanical Ventilator 02/07/18 22:00 74 28 97/83 (88) 71 02/07/18 21:52 72 32 100 18 21:52 69 31 81 Mechanical Ventilator 100 02/07/18 21:52 69 31 Mechanical Ventilator 100 02/07/18 21:50 72 32 100 02/07/18 21:05 34 100 02/07/18 21:00 111 32 139/79 (99) 66 18 21:00 30 Mechanical Ventilator 02/07/18 20:45 90 140/68 02/07/18 20:00 30 Mechanical Ventilator 02/07/18 20:00 100 02/07/18 20:00 Mechanical Ventilator Mechanical Ventilator 02/07/18 20:00 83 02/07/18 20:00 98.5 84 28 112/67 (82) 86 02/07/18 19:42 108 30 100 02/07/18 19:00 30 Mechanical Ventilator 02/07/18 19:00 78 31 146/83 (104) 84 02/07/18 18:00 28 Mechanical Ventilator 100 02/07/18 18:00 78 27 122/63 (82) 83 02/07/18 17:30 77 23 154/93 (113) 90 02/07/18 17:20 69 34 100 02/07/18 17:00 28 Mechanical Ventilator 100 02/07/18 17:00 68 29 120/63 (82) 90 02/07/18 16:00 61 02/07/18 16:00 30 Mechanical Ventilator 100 02/07/18 16:00 Mechanical Ventilator Mechanical Ventilator 02/07/18 16:00 100 02/07/18 16:00 98.3 64 30 118/58 (78) 89 02/07/18 15:02 64 30 100 02/07/18 15:00 26 Mechanical Ventilator 100 02/07/18 15:00 65 30 112/58 (76) 90 Intake and Output 02/07/18 02/08/18 19:00 07:00 Intake Total 985 ml 1018 ml Output Total 1090 ml 600 ml Balance -105 ml 418 ml Free Water 30 ml IV Total 355 ml 418 ml Tube Feeding 600 ml 600 ml Output Urine Total 1090 ml 600 ml Laboratory Tests Test 02/07/18 20:50 02/08/18 04:40 02/08/18 04:46 02/08/18 09:40 Arterial Blood pH 7.361 (7.350-7.450) 7.408 (7.350-7.450) Arterial Blood Partial Pressure CO2 66.0 mmHg (35.0-45.0) *H 67.4 mmHg (35.0-45.0) *H Arterial Blood Partial Pressure O2 48.0 mmHg (75.0-100.0) 42.1 mmHg (75.0-100.0) Arterial Blood HCO3 36.5 mmol/L (22.0-26.0) H 41.6 mmol/L (22.0-26.0) *H Arterial Blood Oxygen Saturation 79.9 % (95-100) *L 75.3 % (95-100) *L Arterial Blood Base Excess 9.1 (-2-2) *H 14.3 (-2-2) *H Dima Test Positive Positive Sodium Level 149 MMOL/L (136-145) H Potassium Level 3.8 MMOL/L (3.5-5.1) Chloride Level 109 MMOL/L (98-107) H Carbon Dioxide Level 37 MMOL/L (21-32) H Anion Gap 3 mmol/L (5-15) L Blood Urea Nitrogen 31 mg/dL (7-18) H Creatinine 0.9 MG/DL (0.55-1.30) Estimat Glomerular Filtration Rate mL/min (>60) Glucose Level 107 MG/DL (74-106) H Calcium Level 7.9 MG/DL (8.5-10.1) L Phosphorus Level 3.6 MG/DL (2.5-4.9) Magnesium Level 2.0 MG/DL (1.8-2.4) Total Bilirubin 0.5 MG/DL (0.2-1.0) Aspartate Amino Transf (AST/SGOT) 24 U/L (15-37) Alanine Aminotransferase (ALT/SGPT) 18 U/L (12-78) Alkaline Phosphatase 71 U/L (46-116) Total Protein 6.4 G/DL (6.4-8.2) Albumin 1.5 G/DL (3.4-5.0) L Globulin 4.9 g/dL Albumin/Globulin Ratio 0.3 (1.0-2.7) L White Blood Count 12.2 K/UL (4.8-10.8) H Red Blood Count 3.14 M/UL (4.70-6.10) L Hemoglobin 10.1 G/DL (14.2-18.0) L Hematocrit 31.4 % (42.0-52.0) L Mean Corpuscular Volume 100 FL (80-99) H Mean Corpuscular Hemoglobin 32.1 PG (27.0-31.0) H Mean Corpuscular Hemoglobin Concent 32.1 G/DL (32.0-36.0) Red Cell Distribution Width 14.4 % (11.6-14.8) Platelet Count 300 K/UL (150-450) Mean Platelet Volume 7.4 FL (6.5-10.1) Neutrophils (%) (Auto) 77.5 % (45.0-75.0) H Lymphocytes (%) (Auto) 11.4 % (20.0-45.0) L Monocytes (%) (Auto) 9.3 % (1.0-10.0) Eosinophils (%) (Auto) 1.0 % (0.0-3.0) Basophils (%) (Auto) 0.8 % (0.0-2.0) Prothrombin Time 12.0 SEC (9.30-11.50) H Prothromb Time International Ratio 1.1 (0.9-1.1) Activated Partial Thromboplast Time 30 SEC (23-33) Objective HEAD AND NECK: Orally intubated.NG tube is in LUNGS: Coarse rhonchi CARDIOVASCULAR: Regular S1 and S2 with no murmur. ABDOMEN: Soft. EXTREMITIES: No pitting edema Josep Brar MD Feb 08, 2018 14:30
--- NOTE | 2018-02-08 16:01 | Nephrology Progress Note ---
Assessment/Plan Problem List: (1) OLEG (acute kidney injury) Assessment: resolved (2) Abnormal LFTs (3) Lactic acid acidosis (4) UTI (urinary tract infection) (5) Respiratory disorder with ventilator dependence (6) Pulmonary fibrosis Assessment Acute renal failure, resolved high K resolved Pneumonia / Sepsis / Hypoxia / UTI HypoAlbuminemia / Proteinuria Acute respiratory failure Pulmonary fibrosis Lactic acidosis Plan Pulm support / on vent IV antibiotics Watch electrolytes Gastric support Per orders Subjective ROS Limited/Unobtainable: Yes Objective Objective Last 24 Hour Vital Signs Date Time Temp Pulse Resp B/P (MAP) Pulse Ox O2 Delivery O2 Flow Rate FiO2 02/08/18 16:00 34 Mechanical Ventilator 100.0 100 02/08/18 15:31 76 34 100 02/08/18 12:50 95 31 90 Mechanical Ventilator 100 02/08/18 12:40 101 30 100 02/08/18 12:40 101 32 89 Mechanical Ventilator 100 02/08/18 11:25 102 27 100 02/08/18 10:00 82 29 130/69 (89) 85 02/08/18 09:00 84 142/61 02/08/18 09:00 85 29 138/65 (89) 85 02/08/18 08:56 84 02/08/18 08:36 84 33 100 02/08/18 08:00 75 02/08/18 08:00 Mechanical Ventilator Mechanical Ventilator 02/08/18 08:00 100 02/08/18 08:00 98.2 80 29 144/65 (91) 89 02/08/18 07:32 109 32 91 Mechanical Ventilator 100 02/08/18 07:22 111 32 100 02/08/18 07:22 111 32 87 Mechanical Ventilator 100 02/08/18 07:00 85 29 142/61 (88) 85 02/08/18 06:00 30 Mechanical Ventilator 02/08/18 06:00 108 27 139/70 (93) 81 02/08/18 05:12 81 30 100 02/08/18 05:00 98.6 75 29 157/65 (95) 69 02/08/18 05:00 27 Mechanical Ventilator 02/08/18 04:00 72 22 138/75 (96) 90 02/08/18 04:00 Mechanical Ventilator Mechanical Ventilator 02/08/18 04:00 70 02/08/18 04:00 28 Mechanical Ventilator 02/08/18 04:00 100 02/08/18 03:15 72 31 100 02/08/18 03:00 76 25 113/57 (75) 92 02/08/18 03:00 25 Mechanical Ventilator 02/08/18 02:00 98 23 107/55 (72) 93 02/08/18 02:00 30 Mechanical Ventilator 02/08/18 01:20 72 33 90 Mechanical Ventilator 100 02/08/18 01:10 98 30 90 Mechanical Ventilator 100 02/08/18 01:00 82 32 100 02/08/18 01:00 30 Mechanical Ventilator 02/08/18 01:00 78 26 108/60 (76) 89 02/08/18 00:00 100 02/08/18 00:00 30 Mechanical Ventilator 02/08/18 00:00 Mechanical Ventilator Mechanical Ventilator 02/08/18 00:00 72 02/08/18 00:00 72 29 109/65 (80) 87 02/07/18 23:29 73 31 100 02/07/18 23:00 28 Mechanical Ventilator 02/07/18 23:00 72 29 132/60 (84) 82 02/07/18 22:07 70 30 80 Mechanical Ventilator 100 02/07/18 22:06 28 Mechanical Ventilator 02/07/18 22:00 74 28 97/83 (88) 71 02/07/18 21:52 72 32 100 02/07/18 21:52 69 31 81 Mechanical Ventilator 100 02/07/18 21:52 69 31 Mechanical Ventilator 100 02/07/18 21:50 72 32 100 18 21:05 34 100 02/07/18 21:00 111 32 139/79 (99) 66 02/07/18 21:00 30 Mechanical Ventilator 18 20:45 90 140/68 18 20:00 30 Mechanical Ventilator 18 20:00 100 18 20:00 Mechanical Ventilator Mechanical Ventilator 02/07/18 20:00 83 18 20:00 98.5 84 28 112/67 (82) 86 1818 19:42 108 30 100 02/07/18 19:00 30 Mechanical Ventilator 02/07/18 19:00 78 31 146/83 (104) 84 18 18:00 28 Mechanical Ventilator 100 02/07/18 18:00 78 27 122/63 (82) 83 12/18/18 17:30 77 23 154/93 (113) 90 02/07/18 17:20 69 34 100 02/07/18 17:00 28 Mechanical Ventilator 100 02/07/18 17:00 68 29 120/63 (82) 90 Intake and Output 02/07/18 02/08/18 19:00 07:00 Intake Total 985 ml 1018 ml Output Total 1090 ml 600 ml Balance -105 ml 418 ml Free Water 30 ml IV Total 355 ml 418 ml Tube Feeding 600 ml 600 ml Output Urine Total 1090 ml 600 ml Laboratory Tests 02/07/18 20:50: Arterial Blood pH 7.361, Arterial Blood Partial Pressure CO2 66.0*H, Arterial Blood Partial Pressure O2 48.0*L, Arterial Blood HCO3 36.5H, Arterial Blood Oxygen Saturation 79.9*L, Arterial Blood Base Excess 9.1*H, Dima Test Positive 02/08/18 04:40: Sodium Level 149H, Potassium Level 3.8, Chloride Level 109H, Carbon Dioxide Level 37H, Anion Gap 3L, Blood Urea Nitrogen 31H, Creatinine 0.9, Estimat Glomerular Filtration Rate , Glucose Level 107H, Calcium Level 7.9L, Phosphorus Level 3.6, Magnesium Level 2.0, Total Bilirubin 0.5, Aspartate Amino Transf (AST /SGOT) 24, Alanine Aminotransferase (ALT/SGPT) 18, Alkaline Phosphatase 71, Total Protein 6.4, Albumin 1.5L, Globulin 4.9, Albumin/Globulin Ratio 0.3L 02/08/18 04:46: White Blood Count 12.2H, Red Blood Count 3.14L, Hemoglobin 10.1L, Hematocrit 31.4L, Mean Corpuscular Volume 100H, Mean Corpuscular Hemoglobin 32.1H, Mean Corpuscular Hemoglobin Concent 32.1, Red Cell Distribution Width 14.4, Platelet Count 300, Mean Platelet Volume 7.4, Neutrophils (%) (Auto) 77.5H, Lymphocytes ( %) (Auto) 11.4L, Monocytes (%) (Auto) 9.3, Eosinophils (%) (Auto) 1.0, Basophils (%) (Auto) 0.8, Prothrombin Time 12.0H, Prothromb Time International Ratio 1.1, Activated Partial Thromboplast Time 30 02/08/18 09:40: Arterial Blood pH 7.408, Arterial Blood Partial Pressure CO2 67.4*H, Arterial Blood Partial Pressure O2 42.1*L, Arterial Blood HCO3 41.6*H, Arterial Blood Oxygen Saturation 75.3*L, Arterial Blood Base Excess 14.3*H, Dima Test Positive Height (Feet): 5 Height (Inches): 9.00 Weight (Pounds): 188 General Appearance: no apparent distress Objective no change Juan C Mclaughlin MD Feb 08, 2018 16:01
--- NOTE | 2018-02-08 16:28 | Diagnostic Imaging Report ---
Indication: Reason For Exam: COUGH Technique: One view of the chest Comparison: 02/06/2018 Findings: Interim worsening of previously demonstrated bilateral interstitial and airspace infiltrates versus edema. Bilateral pleural effusions are again demonstrated. Stable satisfactory positions of endotracheal and nasogastric tube Impression: Worsening bilateral interstitial and airspace infiltrates versus edema, over 2 days Other stable findings as described
[2018-02-08] MEDS: Miralax 17gm pkt NG SCH (21:23)
--- NOTE | 2018-02-08 21:39 | General Progress Note ---
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 (2) Renal insufficiency ICD Codes: N28.9 - Disorder of kidney and ureter, unspecified; R65.20 - Severe sepsis without septic shock SNOMED: 499090561, 510051084 (3) UTI (urinary tract infection) ICD Codes: N39.0 - Urinary tract infection, site not specified SNOMED: 17444480, 796786776 Qualifiers: Qualified Codes: N39.0 - Urinary tract infection, site not specified (4) Pneumonia ICD Codes: J18.9 - Pneumonia, unspecified organism SNOMED: 745093415 Qualifiers: Qualified Codes: J18.1 - Lobar pneumonia, unspecified organism (5) Severe sepsis ICD Codes: A41.9 - Sepsis, unspecified organism; R65.20 - Severe sepsis without septic shock SNOMED: 65594081 (6) Hypoxia ICD Codes: R09.02 - Hypoxemia; R65.20 - Severe sepsis without septic shock SNOMED: 407380109, 717153009 (7) Pulmonary fibrosis ICD Codes: J84.10 - Pulmonary fibrosis, unspecified SNOMED: 00723839 (8) Lactic acid acidosis ICD Codes: E87.2 - Acidosis SNOMED: 98134699 (9) OLEG (acute kidney injury) ICD Codes: N17.9 - Acute kidney failure, unspecified SNOMED: 52561519 (10) Abnormal LFTs ICD Codes: R94.5 - Abnormal results of liver function studies SNOMED: 320152472 Status: progressing Assessment/Plan severe pulmonary firbrosis resp failure pna sepsis uti rhonci intubated leukocytosis improving abx per id reviewed chart and labs Subjective ROS Limited/Unobtainable: Yes Allergies: Coded Allergies: No Known Allergies (Unverified , 01/24/18) Objective Last 24 Hour Vital Signs Date Time Temp Pulse Resp B/P (MAP) Pulse Ox O2 Delivery O2 Flow Rate FiO2 02/08/18 21:24 100 98/53 02/08/18 21:02 82 34 100 02/08/18 19:59 100 02/08/18 19:59 24 Mechanical Ventilator 100 02/08/18 19:58 111 02/08/18 19:57 Mechanical Ventilator Mechanical Ventilator 02/08/18 19:52 98.6 111 24 110/64 (79) 94 02/08/18 19:20 78 32 96 Mechanical Ventilator 100 18 19:10 97 32 95 Mechanical Ventilator 100 02/08/18 19:06 97 34 100 18 19:00 88 26 126/75 (92) 94 18 19:00 28 Mechanical Ventilator 100 18 18:00 28 Mechanical Ventilator 100 18 18:00 85 29 116/72 (87) 94 18 17:03 76 32 100 02/08/18 17:00 26 Mechanical Ventilator 100 18 17:00 82 29 128/69 (88) 94 18 16:30 98.2 02/08/18 16:00 Mechanical Ventilator Mechanical Ventilator 02/08/18 16:00 34 Mechanical Ventilator 100.0 100 02/08/18 16:00 85 02/08/18 16:00 98.2 88 29 135/65 (88) 94 18 16:00 100 18 15:31 76 34 100 02/08/18 15:00 85 29 132/69 (90) 93 02/08/18 14:00 82 29 129/71 (90) 93 02/08/18 13:00 90 29 130/70 (90) 95 18 12:50 95 31 90 Mechanical Ventilator 100 02/08/18 12:40 101 30 100 02/08/18 12:40 101 32 89 Mechanical Ventilator 100 02/08/18 12:00 Mechanical Ventilator Mechanical Ventilator 02/08/18 12:00 98.5 80 29 143/65 (91) 92 02/08/18 12:00 100 02/08/18 12:00 80 02/08/18 11:25 102 27 100 18 11:00 85 29 132/69 (90) 90 18 10:00 82 29 130/69 (89) 85 18 09:39 25 Mechanical Ventilator 100 02/08/18 09:00 26 Mechanical Ventilator 100 02/08/18 09:00 84 142/61 02/08/18 09:00 85 29 138/65 (89) 85 02/08/18 08:56 84 02/08/18 08:36 84 33 100 02/08/18 08:00 75 02/08/18 08:00 Mechanical Ventilator Mechanical Ventilator 02/08/18 08:00 25 Mechanical Ventilator 100 02/08/18 08:00 100 02/08/18 08:00 98.2 80 29 144/65 (91) 89 02/08/18 07:32 109 32 91 Mechanical Ventilator 100 02/08/18 07:22 111 32 100 02/08/18 07:22 111 32 87 Mechanical Ventilator 100 02/08/18 07:00 85 29 142/61 (88) 85 02/08/18 06:00 30 Mechanical Ventilator 02/08/18 06:00 108 27 139/70 (93) 81 02/08/18 05:12 81 30 100 02/08/18 05:00 98.6 75 29 157/65 (95) 69 02/08/18 05:00 27 Mechanical Ventilator 02/08/18 04:00 72 22 138/75 (96) 90 02/08/18 04:00 Mechanical Ventilator Mechanical Ventilator 02/08/18 04:00 70 02/08/18 04:00 28 Mechanical Ventilator 02/08/18 04:00 100 02/08/18 03:15 72 31 100 02/08/18 03:00 76 25 113/57 (75) 92 02/08/18 03:00 25 Mechanical Ventilator 02/08/18 02:00 98 23 107/55 (72) 93 02/08/18 02:00 30 Mechanical Ventilator 02/08/18 01:20 72 33 90 Mechanical Ventilator 100 02/08/18 01:10 98 30 90 Mechanical Ventilator 100 02/08/18 01:00 82 32 100 02/08/18 01:00 30 Mechanical Ventilator 02/08/18 01:00 78 26 108/60 (76) 89 02/08/18 00:00 100 02/08/18 00:00 30 Mechanical Ventilator 02/08/18 00:00 Mechanical Ventilator Mechanical Ventilator 02/08/18 00:00 72 02/08/18 00:00 72 29 109/65 (80) 87 02/07/18 23:29 73 31 100 02/07/18 23:00 28 Mechanical Ventilator 02/07/18 23:00 72 29 132/60 (84) 82 02/07/18 22:07 70 30 80 Mechanical Ventilator 100 02/07/18 22:06 28 Mechanical Ventilator 02/07/18 22:00 74 28 97/83 (88) 71 02/07/18 21:52 72 32 100 02/07/18 21:52 69 31 81 Mechanical Ventilator 100 02/07/18 21:52 69 31 Mechanical Ventilator 100 02/07/18 21:50 72 32 100 Intake and Output 02/07/18 02/08/18 18:59 06:59 Intake Total 985 ml 1051 ml Output Total 740 ml 950 ml Balance 245 ml 101 ml Free Water 30 ml IV Total 355 ml 451 ml Tube Feeding 600 ml 600 ml Output Urine Total 740 ml 950 ml Laboratory Tests 02/08/18 04:40: Sodium Level 149H, Potassium Level 3.8, Chloride Level 109H, Carbon Dioxide Level 37H, Anion Gap 3L, Blood Urea Nitrogen 31H, Creatinine 0.9, Estimat Glomerular Filtration Rate , Glucose Level 107H, Calcium Level 7.9L, Phosphorus Level 3.6, Magnesium Level 2.0, Total Bilirubin 0.5, Aspartate Amino Transf (AST /SGOT) 24, Alanine Aminotransferase (ALT/SGPT) 18, Alkaline Phosphatase 71, Total Protein 6.4, Albumin 1.5L, Globulin 4.9, Albumin/Globulin Ratio 0.3L 02/08/18 04:46: White Blood Count 12.2H, Red Blood Count 3.14L, Hemoglobin 10.1L, Hematocrit 31.4L, Mean Corpuscular Volume 100H, Mean Corpuscular Hemoglobin 32.1H, Mean Corpuscular Hemoglobin Concent 32.1, Red Cell Distribution Width 14.4, Platelet Count 300, Mean Platelet Volume 7.4, Neutrophils (%) (Auto) 77.5H, Lymphocytes ( %) (Auto) 11.4L, Monocytes (%) (Auto) 9.3, Eosinophils (%) (Auto) 1.0, Basophils (%) (Auto) 0.8, Prothrombin Time 12.0H, Prothromb Time International Ratio 1.1, Activated Partial Thromboplast Time 30 02/08/18 09:40: Arterial Blood pH 7.408, Arterial Blood Partial Pressure CO2 67.4*H, Arterial Blood Partial Pressure O2 42.1*L, Arterial Blood HCO3 41.6*H, Arterial Blood Oxygen Saturation 75.3*L, Arterial Blood Base Excess 14.3*H, Dima Test Positive 02/08/18 18:22: Arterial Blood pH 7.250*L, Arterial Blood Partial Pressure CO2 104.8*H, Arterial Blood Partial Pressure O2 66.8L, Arterial Blood HCO3 45.0*H, Arterial Blood Oxygen Saturation 89.1*L, Arterial Blood Base Excess 14.2*H, Dima Test Positive Height (Feet): 5 Height (Inches): 9.00 Weight (Pounds): 188 General Appearance: confused Respiratory/Chest: rhonchi - bilaterally Abdomen: soft Edwin Corrigan MD Feb 08, 2018 21:39
--- NOTE | 2018-02-08 22:50 | General Surgery Progress Note ---
General Surgery-Progress Note Subjective Additional Comments still in critical condition Objective Last 24 Hour Vital Signs Date Time Temp Pulse Resp B/P (MAP) Pulse Ox O2 Delivery O2 Flow Rate FiO2 02/08/18 22:45 66 33 100 18 21:24 100 98/53 18 21:02 82 34 100 18 19:59 100 18 19:59 24 Mechanical Ventilator 100 02/08/18 19:58 111 02/08/18 19:57 Mechanical Ventilator Mechanical Ventilator 02/08/18 19:52 98.6 111 24 110/64 (79) 94 02/08/18 19:20 78 32 96 Mechanical Ventilator 100 02/08/18 19:10 97 32 95 Mechanical Ventilator 100 02/08/18 19:06 97 34 100 02/08/18 19:00 88 26 126/75 (92) 94 02/08/18 19:00 28 Mechanical Ventilator 100 02/08/18 18:00 28 Mechanical Ventilator 100 02/08/18 18:00 85 29 116/72 (87) 94 02/08/18 17:03 76 32 100 02/08/18 17:00 26 Mechanical Ventilator 100 02/08/18 17:00 82 29 128/69 (88) 94 02/08/18 16:30 98.2 02/08/18 16:00 Mechanical Ventilator Mechanical Ventilator 02/08/18 16:00 34 Mechanical Ventilator 100.0 100 02/08/18 16:00 85 02/08/18 16:00 98.2 88 29 135/65 (88) 94 02/08/18 16:00 100 02/08/18 15:31 76 34 100 02/08/18 15:00 85 29 132/69 (90) 93 02/08/18 14:00 82 29 129/71 (90) 93 02/08/18 13:00 90 29 130/70 (90) 95 02/08/18 12:50 95 31 90 Mechanical Ventilator 100 02/08/18 12:40 101 30 100 02/08/18 12:40 101 32 89 Mechanical Ventilator 100 02/08/18 12:00 Mechanical Ventilator Mechanical Ventilator 02/08/18 12:00 98.5 80 29 143/65 (91) 92 02/08/18 12:00 100 02/08/18 12:00 80 02/08/18 11:25 102 27 100 12/19/18 11:00 85 29 132/69 (90) 90 02/08/18 10:00 82 29 130/69 (89) 85 18 09:39 25 Mechanical Ventilator 100 02/08/18 09:00 26 Mechanical Ventilator 100 02/08/18 09:00 84 142/61 02/08/18 09:00 85 29 138/65 (89) 85 02/08/18 08:56 84 02/08/18 08:36 84 33 100 02/08/18 08:00 75 02/08/18 08:00 Mechanical Ventilator Mechanical Ventilator 02/08/18 08:00 25 Mechanical Ventilator 100 02/08/18 08:00 100 02/08/18 08:00 98.2 80 29 144/65 (91) 89 02/08/18 07:32 109 32 91 Mechanical Ventilator 100 02/08/18 07:22 111 32 100 02/08/18 07:22 111 32 87 Mechanical Ventilator 100 02/08/18 07:00 85 29 142/61 (88) 85 02/08/18 06:00 30 Mechanical Ventilator 02/08/18 06:00 108 27 139/70 (93) 81 02/08/18 05:12 81 30 100 02/08/18 05:00 98.6 75 29 157/65 (95) 69 02/08/18 05:00 27 Mechanical Ventilator 02/08/18 04:00 72 22 138/75 (96) 90 02/08/18 04:00 Mechanical Ventilator Mechanical Ventilator 02/08/18 04:00 70 02/08/18 04:00 28 Mechanical Ventilator 02/08/18 04:00 100 02/08/18 03:15 72 31 100 02/08/18 03:00 76 25 113/57 (75) 92 02/08/18 03:00 25 Mechanical Ventilator 02/08/18 02:00 98 23 107/55 (72) 93 02/08/18 02:00 30 Mechanical Ventilator 02/08/18 01:20 72 33 90 Mechanical Ventilator 100 02/08/18 01:10 98 30 90 Mechanical Ventilator 100 02/08/18 01:00 82 32 100 02/08/18 01:00 30 Mechanical Ventilator 02/08/18 01:00 78 26 108/60 (76) 89 12/19/18 00:00 100 02/08/18 00:00 30 Mechanical Ventilator 02/08/18 00:00 Mechanical Ventilator Mechanical Ventilator 02/08/18 00:00 72 02/08/18 00:00 72 29 109/65 (80) 87 02/07/18 23:29 73 31 100 02/07/18 23:00 28 Mechanical Ventilator 02/07/18 23:00 72 29 132/60 (84) 82 I&O Intake and Output 02/07/18 02/08/18 18:59 06:59 Intake Total 985 ml 1051 ml Output Total 740 ml 950 ml Balance 245 ml 101 ml Free Water 30 ml IV Total 355 ml 451 ml Tube Feeding 600 ml 600 ml Output Urine Total 740 ml 950 ml Dressing: other Wound: other Drains: other Cardiovascular: RSR Respiratory: decreased breath sounds Abdomen: soft, present bowel sounds Extremities: other Laboratory Tests Test 02/08/18 04:40 02/08/18 04:46 02/08/18 09:40 02/08/18 18:22 Sodium Level 149 MMOL/L (136-145) H Potassium Level 3.8 MMOL/L (3.5-5.1) Chloride Level 109 MMOL/L (98-107) H Carbon Dioxide Level 37 MMOL/L (21-32) H Anion Gap 3 mmol/L (5-15) L Blood Urea Nitrogen 31 mg/dL (7-18) H Creatinine 0.9 MG/DL (0.55-1.30) Estimat Glomerular Filtration Rate mL/min (>60) Glucose Level 107 MG/DL (74-106) H Calcium Level 7.9 MG/DL (8.5-10.1) L Phosphorus Level 3.6 MG/DL (2.5-4.9) Magnesium Level 2.0 MG/DL (1.8-2.4) Total Bilirubin 0.5 MG/DL (0.2-1.0) Aspartate Amino Transf (AST/SGOT) 24 U/L (15-37) Alanine Aminotransferase (ALT/SGPT) 18 U/L (12-78) Alkaline Phosphatase 71 U/L (46-116) Total Protein 6.4 G/DL (6.4-8.2) Albumin 1.5 G/DL (3.4-5.0) L Globulin 4.9 g/dL Albumin/Globulin Ratio 0.3 (1.0-2.7) L White Blood Count 12.2 K/UL (4.8-10.8) H Red Blood Count 3.14 M/UL (4.70-6.10) L Hemoglobin 10.1 G/DL (14.2-18.0) L Hematocrit 31.4 % (42.0-52.0) L Mean Corpuscular Volume 100 FL (80-99) H Mean Corpuscular Hemoglobin 32.1 PG (27.0-31.0) H Mean Corpuscular Hemoglobin Concent 32.1 G/DL (32.0-36.0) Red Cell Distribution Width 14.4 % (11.6-14.8) Platelet Count 300 K/UL (150-450) Mean Platelet Volume 7.4 FL (6.5-10.1) Neutrophils (%) (Auto) 77.5 % (45.0-75.0) H Lymphocytes (%) (Auto) 11.4 % (20.0-45.0) L Monocytes (%) (Auto) 9.3 % (1.0-10.0) Eosinophils (%) (Auto) 1.0 % (0.0-3.0) Basophils (%) (Auto) 0.8 % (0.0-2.0) Prothrombin Time 12.0 SEC (9.30-11.50) H Prothromb Time International Ratio 1.1 (0.9-1.1) Activated Partial Thromboplast Time 30 SEC (23-33) Arterial Blood pH 7.408 (7.350-7.450) 7.250 (7.350-7.450) Arterial Blood Partial Pressure CO2 67.4 mmHg (35.0-45.0) *H 104.8 mmHg (35.0-45.0) *H Arterial Blood Partial Pressure O2 42.1 mmHg (75.0-100.0) 66.8 mmHg (75.0-100.0) L Arterial Blood HCO3 41.6 mmol/L (22.0-26.0) *H 45.0 mmol/L (22.0-26.0) *H Arterial Blood Oxygen Saturation 75.3 % (95-100) *L 89.1 % (95-100) *L Arterial Blood Base Excess 14.3 (-2-2) *H 14.2 (-2-2) *H Dima Test Positive Positive Plan Problems: (1) Decubitus ulcer of sacral region, stage 3 Assessment & Plan: Stage III full thickness pressure injury sacrum present on admission (L)2cm x (W)1.8cm ,wound bed with 80% yellow slough ,20% granular Borders slightly macerated. Non-blanching erythema without elevation in skin temp, or induration periwound. NO odor noted. Abrasions noted to R elbow (L)3.2cm x (W)1.9cm.Wound with Biofilm ,erythema al; lynn borders .Periwound clean and intact. Abrasion noted to L elbow(L)5.5cm x (W)1.6cm ,biofim noted to wound bed .erythema along borders .Periwound without erythema or elevation in skin temp. Abrasion lateral L knee with dry scab. Abrasion medial R knee with dry scab. Bilat heels boggy with non-blanching erythema. Non-tender when palpated. Pt repositioned with pillow on his side but restless and repositioned self on back. given critical condition will continue with maximal efforts to reduce worsening wounds as in this condition may deteriorate Tx.Plan: Cleanse R and L elbows with Saline.Apply Silvasorb Gel to both elbows .Cover with Optifoam drsg .Change every 3 Days and prn. Cleanse Sacral Pressure injury with Saline.Apply Therahoney .Cavilon periwound.Cover with Optifoam drsg Daily and prn. Apply Cavilon to Both heels.Cover with Optifoam drsg .Change Every 7 days and prn. Cavilon to abrasions R and L lower ext.Cover with Optifoam change every 7 days and prn. Off-load heels with pillow. Reposition at least every 2 hours or as tolerated. Surface support mattress. (2) Abnormal LFTs Assessment & Plan: US reviewed - absent GB dilated ducts CT reviewed - dilated duct without notable obstruction LFT's noted and elevated t bili trending down no jaundice AST/ALT nml Alk phos nml leukocytosis trending down -no acute surgical intervention necessary -t bili and d bili correlate. unlikely obstructive at this time. especially with history of cholecystectomy prior -trend labs thank you (3) Severe sepsis Assessment & Plan: not weaning off vent easy. 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
--- NOTE | 2018-02-08 23:36 | Pulmonolgy Critical Care Note ---
Critical Care - Asmt/Plan Assessment/Plan: Pulmonary CCM Progress Note Critical Care - Asmt/Plan Problems: (1) Pulmonary fibrosis (2) Multifocal pneumonia (3) Respiratory disorder with ventilator dependence (4) Lactic acid acidosis (5) Abnormal LFTs (6) OLEG (acute kidney injury) (7) SIRS (systemic inflammatory response syndrome) (8) UTI (urinary tract infection) Assessment/Plan: ASSESSMENT: The patient is a 77-year-old male, current daily smoker with history of hypertension, back pain, lack of health maintenance, presenting with respiratory illness, bilateral pneumonia, lactic acidosis, abnormal kidney function and renal function likely OLEG, and shock liver. 01/26: Prog hypoxemia, inc WOB, tx'd to ICU, intubated 01/27: Gas exchange better, trops downtrending, LA resolved 01/30: Oxygenation worse, now on PCV, PEEP increased Bioethics pending Poor prognosis PROBLEM LIST: 1. Bilateral parenchymal infiltrates, multilobar pneumonia on top of underlying fibrotic lung disease 2. VDRF 3. Metabolic & respiratory acidosis 4. Likely underlying pulmonary fibrosis and COPD 5. NSTEMI, likely demand ischemia 6. Lactic acidosis - RESOLVED 7. Abnormal creatinine, likely acute kidney injury - IMPROVED 8. Abnormal liver function tests - IMPROVED 9. SIRS 10. History of hypertension. 11. PNEUMONIA 12. Constipation TREATMENT PLAN: Continue ventilatory support/settings reviewed, monitor gas exchange PEEP 10, adjust FiO2 to keep SaO2 > 90 and <94 ABGnegative fluid balance RTC and PRN DUOnebs Cefepime (D8), Vanco (D7) per ID, F/U Cx's Cautious TF's, monitor residuals ICU sedation: Fentanyl gtt for RASS - 2, Versed 2 mg IV q4 PRN F/U cardiology recs Monitor volumes and renal function, decreased IVF to 25, lasix 20 IV x 1 now Wound care GI recs, bowel regimen Discuss GOC, FC Px: Hep SQ, H2B D/W family, RN, RT and team CCT 45 Critical Care - Objective Vital Signs Noted Status: awake Condition: critical Lungs: rhonchi Heart: HR/BP stable Abdomen: soft, non-tender, active bowel sounds Extremities: no C/C/E Decubiti: location - sacral Blood Sugars: BS controlled Critical Care - Subjective ROS Limited/Unobtainable: Yes ICU Day: 7 Intubation Day: 7 Interval Events: FiO2 inc 70, PEEP 5 Secretions thin clear Edematous UE . LE Condition: critical IV Access: peripheral - x2 FI02: 70 Vent Support Breath Rate: 30 Vent Support Mode: AC Vent Tidal Volume: 600 Sputum Amount: Moderate PEEP: 5.0 PIP: 34 Fluids: D51/2NS @ 50 Drips: Fent off Tube Feeding Amount: 50 Subjective: IRENE ET-Tube: 7.5 ET Position: 23 Labs: Laboratory Tests Test 02/01/18 04:00 White Blood Count 13.1 K/UL (4.8-10.8) H Red Blood Count 3.41 M/UL (4.70-6.10) L Hemoglobin 10.8 G/DL (14.2-18.0) L Hematocrit 32.6 % (42.0-52.0) L Mean Corpuscular Volume 96 FL (80-99) Mean Corpuscular Hemoglobin 31.6 PG (27.0-31.0) H Mean Corpuscular Hemoglobin Concent 33.1 G/DL (32.0-36.0) Red Cell Distribution Width 13.4 % (11.6-14.8) Platelet Count 207 K/UL (150-450) Mean Platelet Volume 8.8 FL (6.5-10.1) Neutrophils (%) (Auto) % (45.0-75.0) Lymphocytes (%) (Auto) % (20.0-45.0) Monocytes (%) (Auto) % (1.0-10.0) Eosinophils (%) (Auto) % (0.0-3.0) Basophils (%) (Auto) % (0.0-2.0) Sodium Level 148 MMOL/L (136-145) H Potassium Level 3.8 MMOL/L (3.5-5.1) Chloride Level 112 MMOL/L (98-107) H Carbon Dioxide Level 31 MMOL/L (21-32) Anion Gap 5 mmol/L (5-15) Blood Urea Nitrogen 36 mg/dL (7-18) H Creatinine 0.8 MG/DL (0.55-1.30) Estimat Glomerular Filtration Rate mL/min (>60) Glucose Level 125 MG/DL (74-106) H Calcium Level 8.1 MG/DL (8.5-10.1) L Phosphorus Level 3.2 MG/DL (2.5-4.9) Magnesium Level 1.8 MG/DL (1.8-2.4) Total Bilirubin 0.7 MG/DL (0.2-1.0) Aspartate Amino Transf (AST/SGOT) 20 U/L (15-37) Alanine Aminotransferase (ALT/SGPT) 16 U/L (12-78) Alkaline Phosphatase 78 U/L (46-116) Total Protein 5.8 G/DL (6.4-8.2) L Albumin 1.4 G/DL (3.4-5.0) L Globulin 4.4 g/dL Albumin/Globulin Ratio 0.3 (1.0-2.7) L Critical Care - Objective Last 24 Hour Vital Signs Date Time Temp Pulse Resp B/P (MAP) Pulse Ox O2 Delivery O2 Flow Rate FiO2 02/08/18 23:00 23 Mechanical Ventilator 100 02/08/18 22:45 66 33 100 02/08/18 22:00 24 Mechanical Ventilator 100 02/08/18 22:00 68 24 95/52 (66) 93 02/08/18 21:24 100 98/53 02/08/18 21:02 82 34 100 02/08/18 21:00 24 Mechanical Ventilator 100 02/08/18 21:00 67 25 98/53 (68) 94 02/08/18 19:59 100 02/08/18 19:59 24 Mechanical Ventilator 100 02/08/18 19:58 111 02/08/18 19:57 Mechanical Ventilator Mechanical Ventilator 02/08/18 19:52 98.6 111 24 110/64 (79) 94 02/08/18 19:20 78 32 96 Mechanical Ventilator 100 02/08/18 19:10 97 32 95 Mechanical Ventilator 100 02/08/18 19:06 97 34 100 02/08/18 19:00 88 26 126/75 (92) 94 02/08/18 19:00 28 Mechanical Ventilator 100 02/08/18 18:00 28 Mechanical Ventilator 100 02/08/18 18:00 85 29 116/72 (87) 94 02/08/18 17:03 76 32 100 02/08/18 17:00 26 Mechanical Ventilator 100 02/08/18 17:00 82 29 128/69 (88) 94 18 16:30 98.2 18 16:00 Mechanical Ventilator Mechanical Ventilator 02/08/18 16:00 34 Mechanical Ventilator 100.0 100 18 16:00 85 18 16:00 98.2 88 29 135/65 (88) 94 18 16:00 100 18 15:31 76 34 100 02/08/18 15:00 85 29 132/69 (90) 93 18 14:00 82 29 129/71 (90) 93 02/08/18 13:00 90 29 130/70 (90) 95 18 12:50 95 31 90 Mechanical Ventilator 100 02/08/18 12:40 101 30 100 02/08/18 12:40 101 32 89 Mechanical Ventilator 100 02/08/18 12:00 Mechanical Ventilator Mechanical Ventilator 02/08/18 12:00 98.5 80 29 143/65 (91) 92 02/08/18 12:00 100 02/08/18 12:00 80 02/08/18 11:25 102 27 100 02/08/18 11:00 85 29 132/69 (90) 90 02/08/18 10:00 82 29 130/69 (89) 85 02/08/18 09:39 25 Mechanical Ventilator 100 02/08/18 09:00 26 Mechanical Ventilator 100 02/08/18 09:00 84 142/61 02/08/18 09:00 85 29 138/65 (89) 85 02/08/18 08:56 84 02/08/18 08:36 84 33 100 02/08/18 08:00 75 02/08/18 08:00 Mechanical Ventilator Mechanical Ventilator 02/08/18 08:00 25 Mechanical Ventilator 100 02/08/18 08:00 100 02/08/18 08:00 98.2 80 29 144/65 (91) 89 02/08/18 07:32 109 32 91 Mechanical Ventilator 100 02/08/18 07:22 111 32 100 02/08/18 07:22 111 32 87 Mechanical Ventilator 100 02/08/18 07:00 85 29 142/61 (88) 85 02/08/18 06:00 30 Mechanical Ventilator 02/08/18 06:00 108 27 139/70 (93) 81 02/08/18 05:12 81 30 100 02/08/18 05:00 98.6 75 29 157/65 (95) 69 12/19/18 05:00 27 Mechanical Ventilator 02/08/18 04:00 72 22 138/75 (96) 90 02/08/18 04:00 Mechanical Ventilator Mechanical Ventilator 02/08/18 04:00 70 02/08/18 04:00 28 Mechanical Ventilator 02/08/18 04:00 100 02/08/18 03:15 72 31 100 02/08/18 03:00 76 25 113/57 (75) 92 02/08/18 03:00 25 Mechanical Ventilator 02/08/18 02:00 98 23 107/55 (72) 93 02/08/18 02:00 30 Mechanical Ventilator 02/08/18 01:20 72 33 90 Mechanical Ventilator 100 02/08/18 01:10 98 30 90 Mechanical Ventilator 100 02/08/18 01:00 82 32 100 02/08/18 01:00 30 Mechanical Ventilator 02/08/18 01:00 78 26 108/60 (76) 89 02/08/18 00:00 100 02/08/18 00:00 30 Mechanical Ventilator 02/08/18 00:00 Mechanical Ventilator Mechanical Ventilator 02/08/18 00:00 72 02/08/18 00:00 72 29 109/65 (80) 87 Critical Care - Subjective ROS Limited/Unobtainable: No FI02: 100 Vent Support Breath Rate: 30 Vent Support Mode: AC Vent Tidal Volume: 600 Sputum Amount: Small PEEP: 15.0 PIP: 40 Tube Feeding Amount: 50 I&O: Intake and Output 02/07/18 02/08/18 18:59 06:59 Intake Total 985 ml 1051 ml Output Total 740 ml 950 ml Balance 245 ml 101 ml Free Water 30 ml IV Total 355 ml 451 ml Tube Feeding 600 ml 600 ml Output Urine Total 740 ml 950 ml ET-Tube: 7.5 ET Position: 23 Tyrel Gonzalez MD Feb 08, 2018 23:36
[2018-02-09] VITALS (24 sets, daily range): BP systolic 95–122; BP diastolic 45–69
[2018-02-09] MEDS: Albuterol/Ipratropium 3ml neb HHN SCH ×4 (01:21→19:19)
[2018-02-09 05:26] LABS: BASOPHILS % (AUTO) 0.9 % (0.0-2.0); EOSINOPHILS % (AUTO) 0.4 % (0.0-3.0); HEMATOCRIT 31.2 % (42.0-52.0); HEMOGLOBIN 9.8 G/DL (14.2-18.0); LYMPHOCYTES % (AUTO) 7.8 % (20.0-45.0); MEAN CORPUSCULAR VOLUME 102 FL (80-99); NEUTROPHILS % (AUTO) 81.8 % (45.0-75.0); PLATELET COUNT 313 K/UL (150-450); RED BLOOD COUNT 3.07 M/UL (4.70-6.10); RED CELL DISTRIBUTION WIDTH 14.6 % (11.6-14.8); WHITE BLOOD COUNT 13.3 K/UL (4.8-10.8)
[2018-02-09 05:56] LABS: ALANINE AMINOTRANSFERASE 21 U/L (12-78); ALBUMIN 1.5 G/DL (3.4-5.0); ALBUMIN/GLOBULIN RATIO 0.3 (1.0-2.7); ALKALINE PHOSPHATASE 63 U/L (46-116); ANION GAP 1 mmol/L (5-15); ASPARTATE AMINO TRANSFERASE 18 U/L (15-37); BILIRUBIN,TOTAL 0.4 MG/DL (0.2-1.0); BLOOD UREA NITROGEN 44 mg/dL (7-18); CALCIUM 7.9 MG/DL (8.5-10.1); CARBON DIOXIDE 39 MMOL/L (21-32); CHLORIDE 110 MMOL/L (98-107); POTASSIUM 4.7 MMOL/L (3.5-5.1); SODIUM 149 MMOL/L (136-145)
[2018-02-09] MEDS: D5 1/2NS 1,000 ML IV SCH (07:57)
[2018-02-09] MEDS: Metoprolol Tartrate 50mg tab ORAL SCH ×2 (09:00→22:01)
[2018-02-09] MEDS: Heparin 5000 units/ml inj SUBQ SCH ×2 (10:02→21:58)
[2018-02-09] MEDS: Cefepime HCl 1 GM in D5W 55 ML IVPB SCH ×2 (10:05→21:59)
--- NOTE | 2018-02-09 11:23 | General Progress Note ---
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 (2) UTI (urinary tract infection) ICD Codes: N39.0 - Urinary tract infection, site not specified SNOMED: 14554389, 696352125 Qualifiers: Qualified Codes: N39.0 - Urinary tract infection, site not specified (3) Severe sepsis ICD Codes: A41.9 - Sepsis, unspecified organism; R65.20 - Severe sepsis without septic shock SNOMED: 72082271 Status: unchanged Assessment/Plan cont Haldol the family should make decisions the pt lacks capacity provided ro/st Subjective Neurologic/Psychiatric: Reports: anxiety, depressed, emotional problems Allergies: Coded Allergies: No Known Allergies (Unverified , 01/24/18) Subjective the pt is the same. waxing and waning. in restraints. agitated confused no changes Objective Last 24 Hour Vital Signs Date Time Temp Pulse Resp B/P (MAP) Pulse Ox O2 Delivery O2 Flow Rate FiO2 02/09/18 11:05 83 38 100 02/09/18 11:00 20 Endotracheal Tube 100 02/09/18 09:00 77 95/46 02/09/18 08:52 97 02/09/18 08:51 101 33 100 02/09/18 08:00 100 02/09/18 07:37 100 33 97 Mechanical Ventilator 100 02/09/18 07:33 101 32 96 Mechanical Ventilator 100 02/09/18 07:31 101 33 100 02/09/18 07:00 70 26 114/45 (68) 98 02/09/18 06:00 99 26 107/55 (72) 98 02/09/18 05:55 24 Mechanical Ventilator 10.0 100 02/09/18 05:13 81 31 Mechanical Ventilator 100 02/09/18 05:12 83 31 100 02/09/18 05:00 90 26 121/64 (83) 98 02/09/18 05:00 24 Mechanical Ventilator 100 02/09/18 04:00 98 22 121/64 (83) 98 02/09/18 04:00 100 02/09/18 04:00 24 Mechanical Ventilator 100 02/09/18 04:00 Mechanical Ventilator Mechanical Ventilator 02/09/18 04:00 71 02/09/18 03:29 30 Mechanical Ventilator 100 02/09/18 03:12 81 34 100 02/09/18 03:00 75 22 112/58 (76) 94 02/09/18 02:00 20 Mechanical Ventilator 100 02/09/18 01:53 74 22 121/64 (83) 98 02/09/18 01:31 81 34 95 Mechanical Ventilator 100 02/09/18 01:21 75 33 95 Mechanical Ventilator 100 02/09/18 01:20 75 33 100 02/09/18 01:00 22 Mechanical Ventilator 100 02/09/18 01:00 74 24 110/60 (77) 93 02/09/18 00:00 98.6 74 24 104/54 (71) 93 02/09/18 00:00 71 02/09/18 00:00 100 02/09/18 00:00 24 Mechanical Ventilator 100 02/09/18 00:00 Mechanical Ventilator Mechanical Ventilator 02/08/18 23:00 71 24 100/56 (71) 93 02/08/18 23:00 23 Mechanical Ventilator 100 02/08/18 22:45 66 33 100 02/08/18 22:00 24 Mechanical Ventilator 100 02/08/18 22:00 68 24 95/52 (66) 93 18 21:24 100 98/53 02/08/18 21:02 82 34 100 18 21:00 24 Mechanical Ventilator 100 02/08/18 21:00 67 25 98/53 (68) 94 18 19:59 100 18 19:59 24 Mechanical Ventilator 100 02/08/18 19:58 111 02/08/18 19:57 Mechanical Ventilator Mechanical Ventilator 02/08/18 19:52 98.6 111 24 110/64 (79) 94 18 19:20 78 32 96 Mechanical Ventilator 100 18 19:10 97 32 95 Mechanical Ventilator 100 18 19:06 97 34 100 18 19:00 88 26 126/75 (92) 94 18 19:00 28 Mechanical Ventilator 100 18 18:00 28 Mechanical Ventilator 100 18 18:00 85 29 116/72 (87) 94 18 17:03 76 32 100 18 17:00 26 Mechanical Ventilator 100 18 17:00 82 29 128/69 (88) 94 18 16:30 98.2 18 16:00 Mechanical Ventilator Mechanical Ventilator 02/08/18 16:00 34 Mechanical Ventilator 100.0 100 02/08/18 16:00 85 02/08/18 16:00 98.2 88 29 135/65 (88) 94 02/08/18 16:00 100 02/08/18 15:31 76 34 100 02/08/18 15:00 85 29 132/69 (90) 93 02/08/18 14:00 82 29 129/71 (90) 93 02/08/18 13:00 90 29 130/70 (90) 95 02/08/18 12:50 95 31 90 Mechanical Ventilator 100 02/08/18 12:40 101 30 100 02/08/18 12:40 101 32 89 Mechanical Ventilator 100 02/08/18 12:00 Mechanical Ventilator Mechanical Ventilator 02/08/18 12:00 98.5 80 29 143/65 (91) 92 02/08/18 12:00 100 02/08/18 12:00 80 02/08/18 11:25 102 27 100 Intake and Output 02/08/18 02/09/18 19:00 07:00 Intake Total 858 ml 1105 ml Output Total 550 ml 650 ml Balance 308 ml 455 ml Free Water 100 ml IV Total 258 ml 405 ml Tube Feeding 600 ml 600 ml Output Urine Total 550 ml 650 ml Laboratory Tests 02/08/18 18:22: Arterial Blood pH 7.250*L, Arterial Blood Partial Pressure CO2 104.8*H, Arterial Blood Partial Pressure O2 66.8L, Arterial Blood HCO3 45.0*H, Arterial Blood Oxygen Saturation 89.1*L, Arterial Blood Base Excess 14.2*H, Dima Test Positive 02/09/18 04:45: White Blood Count 13.3H, Red Blood Count 3.07L, Hemoglobin 9.8L, Hematocrit 31.2L, Mean Corpuscular Volume 102H, Mean Corpuscular Hemoglobin 31.9H, Mean Corpuscular Hemoglobin Concent 31.4L, Red Cell Distribution Width 14.6, Platelet Count 313, Mean Platelet Volume 7.5, Neutrophils (%) (Auto) 81.8H, Lymphocytes (%) (Auto) 7.8L, Monocytes (%) (Auto) 9.0, Eosinophils (%) (Auto) 0.4, Basophils (%) (Auto) 0.9, Sodium Level 149H, Potassium Level 4.7, Chloride Level 110H, Carbon Dioxide Level 39H, Anion Gap 1L, Blood Urea Nitrogen 44H, Creatinine 1.0, Estimat Glomerular Filtration Rate , Glucose Level 129H, Calcium Level 7.9L, Total Bilirubin 0.4, Aspartate Amino Transf (AST/SGOT) 18, Alanine Aminotransferase (ALT/SGPT) 21, Alkaline Phosphatase 63, Total Protein 6.4, Albumin 1.5L, Globulin 4.9, Albumin/Globulin Ratio 0.3L Height (Feet): 5 Height (Inches): 9.00 Weight (Pounds): 175 General Appearance: lethargic, confused, agitated Collin Simth MD Feb 09, 2018 11:23
--- NOTE | 2018-02-09 12:15 | Infectious Diseases Prog Note ---
Assessment/Plan Assessment/Plan A: 1. Sepsis 2. Hypoxemic respiratory failure 3. Acute renal failure. 4. Lactic acidosis. 5. Increase in bilirubin, s/p cholecystectomy 6. Pulmonary fibrosis 7. Pulmonary hypertension 8.Hepatitis A 9. Pneumonia P; Continue Cefepime until expiration date Consider tracheostomy UA, Urine culture & Sputum cultures Subjective ROS Limited/Unobtainable: Yes Genitourinary: Reports: hematuria Neurologic: Reports: confusion, other - on restraint Allergies: Coded Allergies: No Known Allergies (Unverified , 01/24/18) Objective Vital Signs Last 24 Hour Vital Signs Date Time Temp Pulse Resp B/P (MAP) Pulse Ox O2 Delivery O2 Flow Rate FiO2 02/09/18 11:05 83 38 100 02/09/18 11:00 20 Endotracheal Tube 100 02/09/18 11:00 100 24 103/69 (80) 98 02/09/18 10:00 77 20 98/48 (65) 96 02/09/18 09:00 77 95/46 02/09/18 09:00 77 20 95/46 (62) 97 02/09/18 08:52 97 02/09/18 08:51 101 33 100 02/09/18 08:00 76 02/09/18 08:00 99.3 77 21 104/50 (68) 97 02/09/18 08:00 100 02/09/18 07:37 100 33 97 Mechanical Ventilator 100 02/09/18 07:33 101 32 96 Mechanical Ventilator 100 02/09/18 07:31 101 33 100 02/09/18 07:00 70 26 114/45 (68) 98 02/09/18 06:00 99 26 107/55 (72) 98 02/09/18 05:55 24 Mechanical Ventilator 10.0 100 02/09/18 05:13 81 31 Mechanical Ventilator 100 02/09/18 05:12 83 31 100 02/09/18 05:00 90 26 121/64 (83) 98 02/09/18 05:00 24 Mechanical Ventilator 100 02/09/18 04:00 98 22 121/64 (83) 98 02/09/18 04:00 100 02/09/18 04:00 24 Mechanical Ventilator 100 02/09/18 04:00 Mechanical Ventilator Mechanical Ventilator 02/09/18 04:00 71 02/09/18 03:29 30 Mechanical Ventilator 100 02/09/18 03:12 81 34 100 02/09/18 03:00 75 22 112/58 (76) 94 02/09/18 02:00 20 Mechanical Ventilator 100 02/09/18 01:53 74 22 121/64 (83) 98 02/09/18 01:31 81 34 95 Mechanical Ventilator 100 02/09/18 01:21 75 33 95 Mechanical Ventilator 100 02/09/18 01:20 75 33 100 02/09/18 01:00 22 Mechanical Ventilator 100 02/09/18 01:00 74 24 110/60 (77) 93 02/09/18 00:00 98.6 74 24 104/54 (71) 93 02/09/18 00:00 71 02/09/18 00:00 100 02/09/18 00:00 24 Mechanical Ventilator 100 02/09/18 00:00 Mechanical Ventilator Mechanical Ventilator 02/08/18 23:00 71 24 100/56 (71) 93 02/08/18 23:00 23 Mechanical Ventilator 100 02/08/18 22:45 66 33 100 02/08/18 22:00 24 Mechanical Ventilator 100 02/08/18 22:00 68 24 95/52 (66) 93 18 21:24 100 98/53 18 21:02 82 34 100 02/08/18 21:00 24 Mechanical Ventilator 100 02/08/18 21:00 67 25 98/53 (68) 94 18 19:59 100 18 19:59 24 Mechanical Ventilator 100 02/08/18 19:58 111 02/08/18 19:57 Mechanical Ventilator Mechanical Ventilator 02/08/18 19:52 98.6 111 24 110/64 (79) 94 18 19:20 78 32 96 Mechanical Ventilator 100 18 19:10 97 32 95 Mechanical Ventilator 100 18 19:06 97 34 100 18 19:00 88 26 126/75 (92) 94 19/18 19:00 28 Mechanical Ventilator 100 18 18:00 28 Mechanical Ventilator 100 18 18:00 85 29 116/72 (87) 94 18 17:03 76 32 100 1918 17:00 26 Mechanical Ventilator 100 18 17:00 82 29 128/69 (88) 94 02/08/18 16:30 98.2 02/08/18 16:00 Mechanical Ventilator Mechanical Ventilator 02/08/18 16:00 34 Mechanical Ventilator 100.0 100 02/08/18 16:00 85 02/08/18 16:00 98.2 88 29 135/65 (88) 94 02/08/18 16:00 100 02/08/18 15:31 76 34 100 02/08/18 15:00 85 29 132/69 (90) 93 02/08/18 14:00 82 29 129/71 (90) 93 02/08/18 13:00 90 29 130/70 (90) 95 02/08/18 12:50 95 31 90 Mechanical Ventilator 100 02/08/18 12:40 101 30 100 02/08/18 12:40 101 32 89 Mechanical Ventilator 100 Height (Feet): 5 Height (Inches): 9.00 Weight (Pounds): 175 General Appearance: no acute distress - intubated HEENT: other Respiratory/Chest: lungs clear, other - on ventilator Cardiovascular: normal rate Abdomen: soft, non tender Genitourinary: other - hematuria Extremities: other - edema of hands Neurologic/Psychiatric: other - sedated Laboratory Tests Test 02/08/18 18:22 02/09/18 04:45 Arterial Blood pH 7.250 (7.350-7.450) Arterial Blood Partial Pressure CO2 104.8 mmHg (35.0-45.0) *H Arterial Blood Partial Pressure O2 66.8 mmHg (75.0-100.0) L Arterial Blood HCO3 45.0 mmol/L (22.0-26.0) *H Arterial Blood Oxygen Saturation 89.1 % (95-100) *L Arterial Blood Base Excess 14.2 (-2-2) *H Dima Test Positive White Blood Count 13.3 K/UL (4.8-10.8) H Red Blood Count 3.07 M/UL (4.70-6.10) L Hemoglobin 9.8 G/DL (14.2-18.0) L Hematocrit 31.2 % (42.0-52.0) L Mean Corpuscular Volume 102 FL (80-99) H Mean Corpuscular Hemoglobin 31.9 PG (27.0-31.0) H Mean Corpuscular Hemoglobin Concent 31.4 G/DL (32.0-36.0) L Red Cell Distribution Width 14.6 % (11.6-14.8) Platelet Count 313 K/UL (150-450) Mean Platelet Volume 7.5 FL (6.5-10.1) Neutrophils (%) (Auto) 81.8 % (45.0-75.0) H Lymphocytes (%) (Auto) 7.8 % (20.0-45.0) L Monocytes (%) (Auto) 9.0 % (1.0-10.0) Eosinophils (%) (Auto) 0.4 % (0.0-3.0) Basophils (%) (Auto) 0.9 % (0.0-2.0) Sodium Level 149 MMOL/L (136-145) H Potassium Level 4.7 MMOL/L (3.5-5.1) Chloride Level 110 MMOL/L (98-107) H Carbon Dioxide Level 39 MMOL/L (21-32) H Anion Gap 1 mmol/L (5-15) L Blood Urea Nitrogen 44 mg/dL (7-18) H Creatinine 1.0 MG/DL (0.55-1.30) Estimat Glomerular Filtration Rate mL/min (>60) Glucose Level 129 MG/DL (74-106) H Calcium Level 7.9 MG/DL (8.5-10.1) L Total Bilirubin 0.4 MG/DL (0.2-1.0) Aspartate Amino Transf (AST/SGOT) 18 U/L (15-37) Alanine Aminotransferase (ALT/SGPT) 21 U/L (12-78) Alkaline Phosphatase 63 U/L (46-116) Total Protein 6.4 G/DL (6.4-8.2) Albumin 1.5 G/DL (3.4-5.0) L Globulin 4.9 g/dL Albumin/Globulin Ratio 0.3 (1.0-2.7) L Current Medications Medications (Trade) Dose Ordered Sig/Chaka Route PRN Reason Start Time Stop Time Status Last Admin Dose Admin Acetaminophen (Tylenol) 650 mg PRN PRN RECTAL Prn Headache/Temp > 101 01/26/18 22:15 02/23/18 22:14 01/28/18 20:35 Albuterol/ Ipratropium (Albuterol/ Ipratropium) 3 ml Q6HRT HHN 02/08/18 01:00 02/13/18 00:59 02/09/18 07:31 Cefepime HCl 1 gm/ Dextrose 55 ml @ 110 mls/hr Q12HR@1000,2200 IVPB 01/30/18 10:00 02/10/18 09:59 02/09/18 10:05 Dextrose/Sodium Chloride 1,000 ml @ 25 mls/hr Q24H IV 02/02/18 14:00 02/28/18 13:59 02/09/18 07:57 Diphenhydramine HCl (Benadryl) 25 mg Q6H PRN IVP Itching 01/26/18 22:15 02/25/18 22:14 Famotidine (Pepcid I.v.) 20 mg Q12HR IVP 01/26/18 10:00 02/24/18 09:59 02/09/18 09:59 Fentanyl Citrate 1000 mcg/Sodium Chloride 100 ml @ 0 mls/hr Q24H IV 02/02/18 15:13 02/09/18 15:12 02/09/18 11:00 Haloperidol Lactate (Haldol) 5 mg Q6H PRN IM Agitation 01/27/18 13:00 02/26/18 12:59 02/06/18 11:47 Heparin Sodium (Porcine) (Heparin 5000 units/ml) 5,000 units EVERY 12 HOURS SUBQ 01/27/18 21:00 02/26/18 20:59 02/09/18 10:02 Lactulose (Cephulac) 20 gm DAILYPRN PRN NG Constipation 02/03/18 13:15 03/04/18 12:59 02/07/18 17:49 Magnesium Hydroxide (Mom) 30 ml DAILYPRN PRN ORAL Constipation 01/30/18 14:15 03/01/18 14:14 02/02/18 07:00 Metoprolol Tartrate (Lopressor) 50 mg Q12HR ORAL 01/31/18 21:00 02/25/18 20:59 02/08/18 21:24 Midazolam HCl (Versed 2mg/2ml vial) 2 mg EVERY 4 HOURS PRN IVP For Anxiety 01/26/18 10:00 1/5/19 09:59 02/02/18 02:16 Olanzapine (ZyPREXA) 2.5 mg BEDTIME PRN ORAL agitation 01/26/18 21:00 02/25/18 20:59 Ondansetron HCl (Zofran) 4 mg Q6H PRN IVP Nausea & Vomiting 01/26/18 22:15 02/25/18 22:14 Polyethylene Glycol (Miralax) 17 gm BEDTIME NG 01/31/18 21:00 03/02/18 20:59 02/08/18 21:23 Ha Tello MD Feb 09, 2018 12:15
--- NOTE | 2018-02-09 12:54 | GI Progress Note ---
Assessment/Plan Problems: (1) Constipation ICD Codes: K59.00 - Constipation, unspecified SNOMED: 21384120 (2) Gastroparesis ICD Codes: K31.84 - Gastroparesis SNOMED: 768797262 (3) Abnormal LFTs ICD Codes: R94.5 - Abnormal results of liver function studies SNOMED: 716222421 Status: not improved, unchanged Status Narrative Discussed with Dr. Salgado Assessment/Plan hepatitis panel reviewed >> active Hep A infection anemia work up reviewed >> folate and iron deficiency recent KUB >> no acute findings Dysphagia bioethics ordered NGTFs per RD to goal. low dose erythromycin if needed for GI motility OB stool r/o GI bleed uncollected monitor H&H, prn transfusions constipation - bowel regime >> lactulose TID ppi folate fu labs poor prognosis The patient was seen and examined at bedside and all new and available data was reviewed in the patients chart. I agree with the above findings, impression and plan. (Patient seen earlier today. Signature stamp does not reflect patient encounter time.). - Peter Salgado MD Subjective Subjective limited Objective Last 24 Hour Vital Signs Date Time Temp Pulse Resp B/P (MAP) Pulse Ox O2 Delivery O2 Flow Rate FiO2 02/09/18 12:00 2.0 02/09/18 11:05 83 38 100 02/09/18 11:00 20 Endotracheal Tube 100 02/09/18 11:00 100 24 103/69 (80) 98 02/09/18 10:30 10.0 02/09/18 10:00 77 20 98/48 (65) 96 02/09/18 09:00 77 95/46 02/09/18 09:00 77 20 95/46 (62) 97 02/09/18 08:52 97 02/09/18 08:51 101 33 100 02/09/18 08:00 76 02/09/18 08:00 99.3 77 21 104/50 (68) 97 02/09/18 08:00 100 02/09/18 07:37 100 33 97 Mechanical Ventilator 100 02/09/18 07:33 101 32 96 Mechanical Ventilator 100 02/09/18 07:31 101 33 100 02/09/18 07:00 70 26 114/45 (68) 98 02/09/18 06:00 99 26 107/55 (72) 98 02/09/18 05:55 24 Mechanical Ventilator 10.0 100 02/09/18 05:13 81 31 Mechanical Ventilator 100 02/09/18 05:12 83 31 100 02/09/18 05:00 90 26 121/64 (83) 98 18 05:00 24 Mechanical Ventilator 100 02/09/18 04:00 98 22 121/64 (83) 98 02/09/18 04:00 100 02/09/18 04:00 24 Mechanical Ventilator 100 02/09/18 04:00 Mechanical Ventilator Mechanical Ventilator 02/09/18 04:00 71 02/09/18 03:29 30 Mechanical Ventilator 100 02/09/18 03:12 81 34 100 02/09/18 03:00 75 22 112/58 (76) 94 02/09/18 02:00 20 Mechanical Ventilator 100 02/09/18 01:53 74 22 121/64 (83) 98 02/09/18 01:31 81 34 95 Mechanical Ventilator 100 02/09/18 01:21 75 33 95 Mechanical Ventilator 100 02/09/18 01:20 75 33 100 02/09/18 01:00 22 Mechanical Ventilator 100 02/09/18 01:00 74 24 110/60 (77) 93 02/09/18 00:00 98.6 74 24 104/54 (71) 93 02/09/18 00:00 71 02/09/18 00:00 100 02/09/18 00:00 24 Mechanical Ventilator 100 02/09/18 00:00 Mechanical Ventilator Mechanical Ventilator 02/08/18 23:00 71 24 100/56 (71) 93 02/08/18 23:00 23 Mechanical Ventilator 100 02/08/18 22:45 66 33 100 18 22:00 24 Mechanical Ventilator 100 18 22:00 68 24 95/52 (66) 93 18 21:24 100 98/53 02/08/18 21:02 82 34 100 18 21:00 24 Mechanical Ventilator 100 18 21:00 67 25 98/53 (68) 94 18 19:59 100 18 19:59 24 Mechanical Ventilator 100 02/08/18 19:58 111 02/08/18 19:57 Mechanical Ventilator Mechanical Ventilator 02/08/18 19:52 98.6 111 24 110/64 (79) 94 02/08/18 19:20 78 32 96 Mechanical Ventilator 100 02/08/18 19:10 97 32 95 Mechanical Ventilator 100 02/08/18 19:06 97 34 100 02/08/18 19:00 88 26 126/75 (92) 94 02/08/18 19:00 28 Mechanical Ventilator 100 02/08/18 18:00 28 Mechanical Ventilator 100 02/08/18 18:00 85 29 116/72 (87) 94 02/08/18 17:03 76 32 100 02/08/18 17:00 26 Mechanical Ventilator 100 02/08/18 17:00 82 29 128/69 (88) 94 02/08/18 16:30 98.2 02/08/18 16:00 Mechanical Ventilator Mechanical Ventilator 02/08/18 16:00 34 Mechanical Ventilator 100.0 100 02/08/18 16:00 85 02/08/18 16:00 98.2 88 29 135/65 (88) 94 02/08/18 16:00 100 02/08/18 15:31 76 34 100 02/08/18 15:00 85 29 132/69 (90) 93 02/08/18 14:00 82 29 129/71 (90) 93 02/08/18 13:00 90 29 130/70 (90) 95 Intake and Output 02/08/18 02/09/18 19:00 07:00 Intake Total 858 ml 1105 ml Output Total 550 ml 650 ml Balance 308 ml 455 ml Free Water 100 ml IV Total 258 ml 405 ml Tube Feeding 600 ml 600 ml Output Urine Total 550 ml 650 ml Laboratory Tests Test 02/08/18 18:22 02/09/18 04:45 Arterial Blood pH 7.250 (7.350-7.450) Arterial Blood Partial Pressure CO2 104.8 mmHg (35.0-45.0) *H Arterial Blood Partial Pressure O2 66.8 mmHg (75.0-100.0) L Arterial Blood HCO3 45.0 mmol/L (22.0-26.0) *H Arterial Blood Oxygen Saturation 89.1 % (95-100) *L Arterial Blood Base Excess 14.2 (-2-2) *H Dima Test Positive White Blood Count 13.3 K/UL (4.8-10.8) H Red Blood Count 3.07 M/UL (4.70-6.10) L Hemoglobin 9.8 G/DL (14.2-18.0) L Hematocrit 31.2 % (42.0-52.0) L Mean Corpuscular Volume 102 FL (80-99) H Mean Corpuscular Hemoglobin 31.9 PG (27.0-31.0) H Mean Corpuscular Hemoglobin Concent 31.4 G/DL (32.0-36.0) L Red Cell Distribution Width 14.6 % (11.6-14.8) Platelet Count 313 K/UL (150-450) Mean Platelet Volume 7.5 FL (6.5-10.1) Neutrophils (%) (Auto) 81.8 % (45.0-75.0) H Lymphocytes (%) (Auto) 7.8 % (20.0-45.0) L Monocytes (%) (Auto) 9.0 % (1.0-10.0) Eosinophils (%) (Auto) 0.4 % (0.0-3.0) Basophils (%) (Auto) 0.9 % (0.0-2.0) Sodium Level 149 MMOL/L (136-145) H Potassium Level 4.7 MMOL/L (3.5-5.1) Chloride Level 110 MMOL/L (98-107) H Carbon Dioxide Level 39 MMOL/L (21-32) H Anion Gap 1 mmol/L (5-15) L Blood Urea Nitrogen 44 mg/dL (7-18) H Creatinine 1.0 MG/DL (0.55-1.30) Estimat Glomerular Filtration Rate mL/min (>60) Glucose Level 129 MG/DL (74-106) H Calcium Level 7.9 MG/DL (8.5-10.1) L Total Bilirubin 0.4 MG/DL (0.2-1.0) Aspartate Amino Transf (AST/SGOT) 18 U/L (15-37) Alanine Aminotransferase (ALT/SGPT) 21 U/L (12-78) Alkaline Phosphatase 63 U/L (46-116) Total Protein 6.4 G/DL (6.4-8.2) Albumin 1.5 G/DL (3.4-5.0) L Globulin 4.9 g/dL Albumin/Globulin Ratio 0.3 (1.0-2.7) L Height (Feet): 5 Height (Inches): 9.00 Weight (Pounds): 175 General Appearance: no apparent distress Cardiovascular: normal rate Respiratory/Chest: no respiratory distress Abdominal Exam: normal bowel sounds, non tender, soft, other - NG tube. Present Extremities: non-tender Willa Woods NP Feb 09, 2018 12:54
--- NOTE | 2018-02-09 14:49 | Nephrology Progress Note ---
Assessment/Plan Problem List: (1) OLEG (acute kidney injury) Assessment: resolved (2) Abnormal LFTs (3) Lactic acid acidosis (4) UTI (urinary tract infection) (5) Respiratory disorder with ventilator dependence (6) Pulmonary fibrosis Assessment Acute renal failure, resolved high K resolved Pneumonia / Sepsis / Hypoxia / UTI HypoAlbuminemia / Proteinuria Acute respiratory failure Pulmonary fibrosis Lactic acidosis Plan Pulm support / on vent IV antibiotics Watch electrolytes Gastric support Per orders Subjective ROS Limited/Unobtainable: Yes Objective Objective Last 24 Hour Vital Signs Date Time Temp Pulse Resp B/P (MAP) Pulse Ox O2 Delivery O2 Flow Rate FiO2 02/09/18 13:31 Endotracheal Tube 02/09/18 13:23 90 30 94 Mechanical Ventilator 100 02/09/18 13:19 80 31 98 Mechanical Ventilator 100 02/09/18 13:00 22 Endotracheal Tube 02/09/18 13:00 79 21 103/69 (80) 98 02/09/18 12:57 89 37 100 02/09/18 12:00 99.8 80 19 110/52 (71) 98 02/09/18 12:00 Endotracheal Tube 02/09/18 12:00 19 Endotracheal Tube 02/09/18 12:00 2.0 02/09/18 12:00 77 02/09/18 11:05 83 38 100 02/09/18 11:00 20 Endotracheal Tube 100 02/09/18 11:00 100 24 103/69 (80) 98 02/09/18 10:30 10.0 02/09/18 10:05 20 Endotracheal Tube 02/09/18 10:00 77 20 98/48 (65) 96 02/09/18 09:00 20 Endotracheal Tube 02/09/18 09:00 77 95/46 02/09/18 09:00 77 20 95/46 (62) 97 02/09/18 08:52 97 02/09/18 08:51 101 33 100 02/09/18 08:00 76 02/09/18 08:00 99.3 77 21 104/50 (68) 97 02/09/18 08:00 21 Endotracheal Tube 02/09/18 08:00 100 02/09/18 07:57 Endotracheal Tube 02/09/18 07:37 100 33 97 Mechanical Ventilator 100 02/09/18 07:33 101 32 96 Mechanical Ventilator 100 12/20/18 07:31 101 33 100 02/09/18 07:00 70 26 114/45 (68) 98 18 07:00 22 Endotracheal Tube 02/09/18 06:00 99 26 107/55 (72) 98 02/09/18 05:55 24 Mechanical Ventilator 10.0 100 18 05:13 81 31 Mechanical Ventilator 100 18 05:12 83 31 100 02/09/18 05:00 90 26 121/64 (83) 98 18 05:00 24 Mechanical Ventilator 100 02/09/18 04:00 98 22 121/64 (83) 98 02/09/18 04:00 100 02/09/18 04:00 24 Mechanical Ventilator 100 02/09/18 04:00 Mechanical Ventilator Mechanical Ventilator 02/09/18 04:00 71 02/09/18 03:29 30 Mechanical Ventilator 100 02/09/18 03:12 81 34 100 02/09/18 03:00 75 22 112/58 (76) 94 02/09/18 02:00 20 Mechanical Ventilator 100 02/09/18 01:53 74 22 121/64 (83) 98 02/09/18 01:31 81 34 95 Mechanical Ventilator 100 02/09/18 01:21 75 33 95 Mechanical Ventilator 100 02/09/18 01:20 75 33 100 02/09/18 01:00 22 Mechanical Ventilator 100 02/09/18 01:00 74 24 110/60 (77) 93 02/09/18 00:00 98.6 74 24 104/54 (71) 93 02/09/18 00:00 71 02/09/18 00:00 100 02/09/18 00:00 24 Mechanical Ventilator 100 02/09/18 00:00 Mechanical Ventilator Mechanical Ventilator 02/08/18 23:00 71 24 100/56 (71) 93 18 23:00 23 Mechanical Ventilator 100 02/08/18 22:45 66 33 100 02/08/18 22:00 24 Mechanical Ventilator 100 02/08/18 22:00 68 24 95/52 (66) 93 18 21:24 100 98/53 18 21:02 82 34 100 02/08/18 21:00 24 Mechanical Ventilator 100 02/08/18 21:00 67 25 98/53 (68) 94 02/08/18 19:59 100 12/19/18 19:59 24 Mechanical Ventilator 100 02/08/18 19:58 111 02/08/18 19:57 Mechanical Ventilator Mechanical Ventilator 02/08/18 19:52 98.6 111 24 110/64 (79) 94 02/08/18 19:20 78 32 96 Mechanical Ventilator 100 02/08/18 19:10 97 32 95 Mechanical Ventilator 100 02/08/18 19:06 97 34 100 02/08/18 19:00 88 26 126/75 (92) 94 02/08/18 19:00 28 Mechanical Ventilator 100 02/08/18 18:00 28 Mechanical Ventilator 100 02/08/18 18:00 85 29 116/72 (87) 94 02/08/18 17:03 76 32 100 02/08/18 17:00 26 Mechanical Ventilator 100 02/08/18 17:00 82 29 128/69 (88) 94 02/08/18 16:30 98.2 02/08/18 16:00 Mechanical Ventilator Mechanical Ventilator 02/08/18 16:00 34 Mechanical Ventilator 100.0 100 02/08/18 16:00 85 02/08/18 16:00 98.2 88 29 135/65 (88) 94 02/08/18 16:00 100 02/08/18 15:31 76 34 100 02/08/18 15:00 85 29 132/69 (90) 93 Intake and Output 02/08/18 02/09/18 19:00 07:00 Intake Total 858 ml 1115 ml Output Total 550 ml 650 ml Balance 308 ml 465 ml Free Water 100 ml IV Total 258 ml 415 ml Tube Feeding 600 ml 600 ml Output Urine Total 550 ml 650 ml Laboratory Tests 02/08/18 18:22: Arterial Blood pH 7.250*L, Arterial Blood Partial Pressure CO2 104.8*H, Arterial Blood Partial Pressure O2 66.8L, Arterial Blood HCO3 45.0*H, Arterial Blood Oxygen Saturation 89.1*L, Arterial Blood Base Excess 14.2*H, Dima Test Positive 02/09/18 04:45: White Blood Count 13.3H, Red Blood Count 3.07L, Hemoglobin 9.8L, Hematocrit 31.2L, Mean Corpuscular Volume 102H, Mean Corpuscular Hemoglobin 31.9H, Mean Corpuscular Hemoglobin Concent 31.4L, Red Cell Distribution Width 14.6, Platelet Count 313, Mean Platelet Volume 7.5, Neutrophils (%) (Auto) 81.8H, Lymphocytes (%) (Auto) 7.8L, Monocytes (%) (Auto) 9.0, Eosinophils (%) (Auto) 0.4, Basophils (%) (Auto) 0.9, Sodium Level 149H, Potassium Level 4.7, Chloride Level 110H, Carbon Dioxide Level 39H, Anion Gap 1L, Blood Urea Nitrogen 44H, Creatinine 1.0, Estimat Glomerular Filtration Rate , Glucose Level 129H, Calcium Level 7.9L, Total Bilirubin 0.4, Aspartate Amino Transf (AST/SGOT) 18, Alanine Aminotransferase (ALT/SGPT) 21, Alkaline Phosphatase 63, Total Protein 6.4, Albumin 1.5L, Globulin 4.9, Albumin/Globulin Ratio 0.3L Height (Feet): 5 Height (Inches): 9.00 Weight (Pounds): 175 General Appearance: no apparent distress Objective no change Juan C Mclaughlin MD Feb 09, 2018 14:49
[2018-02-09] MEDS ORDERED: D5 1/2NS 1000ml IV ONE (15:26)
--- NOTE | 2018-02-09 15:43 | Cardiac Electrophysiology PN ---
Assessment/Plan Assessment/Plan 1. Type 2 NSTEMI. The levels are flat. No CP Due to the respiratory failure and azotemia. Echo normal EF 2. Respiratory failure, due to PNA and CHF. The patient is on the ventilator. Antibiotic per ID Failed weaning. Tracheostomy pending if family and surgeon agrees 3. Hypokalemia, corrected 4. Azotemia and hypernatremia. On D5 1/[address] Mclaughlin Na still 149 5. Elevated bilirubin of 2.3. Down to 1.1 DW RN Subjective Subjective In ICU on the Vent and Fentanyl drip 100. In SR on 100% Fio2. Awaiting family consent. In SR Objective Last 24 Hour Vital Signs Date Time Temp Pulse Resp B/P (MAP) Pulse Ox O2 Delivery O2 Flow Rate FiO2 02/09/18 13:31 Endotracheal Tube 02/09/18 13:23 90 30 94 Mechanical Ventilator 100 02/09/18 13:19 80 31 98 Mechanical Ventilator 100 02/09/18 13:00 22 Endotracheal Tube 02/09/18 13:00 79 21 103/69 (80) 98 02/09/18 12:57 89 37 100 02/09/18 12:00 99.8 80 19 110/52 (71) 98 02/09/18 12:00 Endotracheal Tube 02/09/18 12:00 19 Endotracheal Tube 02/09/18 12:00 2.0 02/09/18 12:00 77 02/09/18 11:05 83 38 100 02/09/18 11:00 20 Endotracheal Tube 100 02/09/18 11:00 100 24 103/69 (80) 98 02/09/18 10:30 10.0 02/09/18 10:05 20 Endotracheal Tube 02/09/18 10:00 77 20 98/48 (65) 96 02/09/18 09:00 20 Endotracheal Tube 02/09/18 09:00 77 95/46 02/09/18 09:00 77 20 95/46 (62) 97 02/09/18 08:52 97 02/09/18 08:51 101 33 100 02/09/18 08:00 76 02/09/18 08:00 99.3 77 21 104/50 (68) 97 02/09/18 08:00 21 Endotracheal Tube 02/09/18 08:00 100 12/20/18 07:57 Endotracheal Tube 02/09/18 07:37 100 33 97 Mechanical Ventilator 100 02/09/18 07:33 101 32 96 Mechanical Ventilator 100 02/09/18 07:31 101 33 100 02/09/18 07:00 70 26 114/45 (68) 98 18 07:00 22 Endotracheal Tube 02/09/18 06:00 99 26 107/55 (72) 98 02/09/18 05:55 24 Mechanical Ventilator 10.0 100 02/09/18 05:13 81 31 Mechanical Ventilator 100 02/09/18 05:12 83 31 100 02/09/18 05:00 90 26 121/64 (83) 98 02/09/18 05:00 24 Mechanical Ventilator 100 02/09/18 04:00 98 22 121/64 (83) 98 02/09/18 04:00 100 02/09/18 04:00 24 Mechanical Ventilator 100 02/09/18 04:00 Mechanical Ventilator Mechanical Ventilator 02/09/18 04:00 71 02/09/18 03:29 30 Mechanical Ventilator 100 02/09/18 03:12 81 34 100 02/09/18 03:00 75 22 112/58 (76) 94 02/09/18 02:00 20 Mechanical Ventilator 100 02/09/18 01:53 74 22 121/64 (83) 98 02/09/18 01:31 81 34 95 Mechanical Ventilator 100 02/09/18 01:21 75 33 95 Mechanical Ventilator 100 02/09/18 01:20 75 33 100 02/09/18 01:00 22 Mechanical Ventilator 100 02/09/18 01:00 74 24 110/60 (77) 93 02/09/18 00:00 98.6 74 24 104/54 (71) 93 02/09/18 00:00 71 02/09/18 00:00 100 02/09/18 00:00 24 Mechanical Ventilator 100 02/09/18 00:00 Mechanical Ventilator Mechanical Ventilator 02/08/18 23:00 71 24 100/56 (71) 93 02/08/18 23:00 23 Mechanical Ventilator 100 18 22:45 66 33 100 02/08/18 22:00 24 Mechanical Ventilator 100 02/08/18 22:00 68 24 95/52 (66) 93 02/08/18 21:24 100 98/53 02/08/18 21:02 82 34 100 12/19/18 21:00 24 Mechanical Ventilator 100 02/08/18 21:00 67 25 98/53 (68) 94 18 19:59 100 02/08/18 19:59 24 Mechanical Ventilator 100 18 19:58 111 18 19:57 Mechanical Ventilator Mechanical Ventilator 02/08/18 19:52 98.6 111 24 110/64 (79) 94 02/08/18 19:20 78 32 96 Mechanical Ventilator 100 02/08/18 19:10 97 32 95 Mechanical Ventilator 100 02/08/18 19:06 97 34 100 02/08/18 19:00 88 26 126/75 (92) 94 02/08/18 19:00 28 Mechanical Ventilator 100 02/08/18 18:00 28 Mechanical Ventilator 100 02/08/18 18:00 85 29 116/72 (87) 94 02/08/18 17:03 76 32 100 02/08/18 17:00 26 Mechanical Ventilator 100 02/08/18 17:00 82 29 128/69 (88) 94 02/08/18 16:30 98.2 02/08/18 16:00 Mechanical Ventilator Mechanical Ventilator 02/08/18 16:00 34 Mechanical Ventilator 100.0 100 02/08/18 16:00 85 02/08/18 16:00 98.2 88 29 135/65 (88) 94 02/08/18 16:00 100 Intake and Output 02/08/18 02/09/18 19:00 07:00 Intake Total 858 ml 1115 ml Output Total 550 ml 650 ml Balance 308 ml 465 ml Free Water 100 ml IV Total 258 ml 415 ml Tube Feeding 600 ml 600 ml Output Urine Total 550 ml 650 ml Laboratory Tests Test 02/08/18 18:22 02/09/18 04:45 Arterial Blood pH 7.250 (7.350-7.450) Arterial Blood Partial Pressure CO2 104.8 mmHg (35.0-45.0) *H Arterial Blood Partial Pressure O2 66.8 mmHg (75.0-100.0) L Arterial Blood HCO3 45.0 mmol/L (22.0-26.0) *H Arterial Blood Oxygen Saturation 89.1 % (95-100) *L Arterial Blood Base Excess 14.2 (-2-2) *H Dima Test Positive White Blood Count 13.3 K/UL (4.8-10.8) H Red Blood Count 3.07 M/UL (4.70-6.10) L Hemoglobin 9.8 G/DL (14.2-18.0) L Hematocrit 31.2 % (42.0-52.0) L Mean Corpuscular Volume 102 FL (80-99) H Mean Corpuscular Hemoglobin 31.9 PG (27.0-31.0) H Mean Corpuscular Hemoglobin Concent 31.4 G/DL (32.0-36.0) L Red Cell Distribution Width 14.6 % (11.6-14.8) Platelet Count 313 K/UL (150-450) Mean Platelet Volume 7.5 FL (6.5-10.1) Neutrophils (%) (Auto) 81.8 % (45.0-75.0) H Lymphocytes (%) (Auto) 7.8 % (20.0-45.0) L Monocytes (%) (Auto) 9.0 % (1.0-10.0) Eosinophils (%) (Auto) 0.4 % (0.0-3.0) Basophils (%) (Auto) 0.9 % (0.0-2.0) Sodium Level 149 MMOL/L (136-145) H Potassium Level 4.7 MMOL/L (3.5-5.1) Chloride Level 110 MMOL/L (98-107) H Carbon Dioxide Level 39 MMOL/L (21-32) H Anion Gap 1 mmol/L (5-15) L Blood Urea Nitrogen 44 mg/dL (7-18) H Creatinine 1.0 MG/DL (0.55-1.30) Estimat Glomerular Filtration Rate mL/min (>60) Glucose Level 129 MG/DL (74-106) H Calcium Level 7.9 MG/DL (8.5-10.1) L Total Bilirubin 0.4 MG/DL (0.2-1.0) Aspartate Amino Transf (AST/SGOT) 18 U/L (15-37) Alanine Aminotransferase (ALT/SGPT) 21 U/L (12-78) Alkaline Phosphatase 63 U/L (46-116) Total Protein 6.4 G/DL (6.4-8.2) Albumin 1.5 G/DL (3.4-5.0) L Globulin 4.9 g/dL Albumin/Globulin Ratio 0.3 (1.0-2.7) L Objective HEAD AND NECK: Orally intubated. NG tube is in LUNGS: Coarse rhonchi CARDIOVASCULAR: Regular S1 and S2 with no murmur. ABDOMEN: Soft. EXTREMITIES: No pitting edema Josep Brar MD Feb 09, 2018 15:43
--- NOTE | 2018-02-09 16:57 | General Surgery Progress Note ---
General Surgery-Progress Note Subjective Additional Comments peep 15 today. FiO2 100%. worse. prognosis guarded Objective Last 24 Hour Vital Signs Date Time Temp Pulse Resp B/P (MAP) Pulse Ox O2 Delivery O2 Flow Rate FiO2 02/09/18 14:45 83 33 100 18 14:00 Endotracheal Tube 02/09/18 13:31 Endotracheal Tube 02/09/18 13:23 90 30 94 Mechanical Ventilator 100 02/09/18 13:19 80 31 98 Mechanical Ventilator 100 02/09/18 13:00 22 Endotracheal Tube 02/09/18 13:00 79 21 103/69 (80) 98 02/09/18 12:57 89 37 100 02/09/18 12:00 99.8 80 19 110/52 (71) 98 02/09/18 12:00 Endotracheal Tube 02/09/18 12:00 19 Endotracheal Tube 02/09/18 12:00 2.0 02/09/18 12:00 77 02/09/18 11:05 83 38 100 02/09/18 11:00 20 Endotracheal Tube 100 02/09/18 11:00 100 24 103/69 (80) 98 02/09/18 10:30 10.0 02/09/18 10:05 20 Endotracheal Tube 02/09/18 10:00 77 20 98/48 (65) 96 02/09/18 09:00 20 Endotracheal Tube 02/09/18 09:00 77 95/46 02/09/18 09:00 77 20 95/46 (62) 97 02/09/18 08:52 97 02/09/18 08:51 101 33 100 02/09/18 08:00 76 02/09/18 08:00 99.3 77 21 104/50 (68) 97 02/09/18 08:00 21 Endotracheal Tube 02/09/18 08:00 100 02/09/18 07:57 Endotracheal Tube 02/09/18 07:37 100 33 97 Mechanical Ventilator 100 02/09/18 07:33 101 32 96 Mechanical Ventilator 100 02/09/18 07:31 101 33 100 02/09/18 07:00 70 26 114/45 (68) 98 02/09/18 07:00 22 Endotracheal Tube 02/09/18 06:00 99 26 107/55 (72) 98 02/09/18 05:55 24 Mechanical Ventilator 10.0 100 02/09/18 05:13 81 31 Mechanical Ventilator 100 02/09/18 05:12 83 31 100 02/09/18 05:00 90 26 121/64 (83) 98 02/09/18 05:00 24 Mechanical Ventilator 100 02/09/18 04:00 98 22 121/64 (83) 98 02/09/18 04:00 100 02/09/18 04:00 24 Mechanical Ventilator 100 02/09/18 04:00 Mechanical Ventilator Mechanical Ventilator 02/09/18 04:00 71 02/09/18 03:29 30 Mechanical Ventilator 100 02/09/18 03:12 81 34 100 02/09/18 03:00 75 22 112/58 (76) 94 02/09/18 02:00 20 Mechanical Ventilator 100 02/09/18 01:53 74 22 121/64 (83) 98 02/09/18 01:31 81 34 95 Mechanical Ventilator 100 02/09/18 01:21 75 33 95 Mechanical Ventilator 100 02/09/18 01:20 75 33 100 02/09/18 01:00 22 Mechanical Ventilator 100 02/09/18 01:00 74 24 110/60 (77) 93 02/09/18 00:00 98.6 74 24 104/54 (71) 93 02/09/18 00:00 71 02/09/18 00:00 100 02/09/18 00:00 24 Mechanical Ventilator 100 02/09/18 00:00 Mechanical Ventilator Mechanical Ventilator 02/08/18 23:00 71 24 100/56 (71) 93 02/08/18 23:00 23 Mechanical Ventilator 100 02/08/18 22:45 66 33 100 02/08/18 22:00 24 Mechanical Ventilator 100 02/08/18 22:00 68 24 95/52 (66) 93 18 21:24 100 98/53 18 21:02 82 34 100 02/08/18 21:00 24 Mechanical Ventilator 100 02/08/18 21:00 67 25 98/53 (68) 94 18 19:59 100 18 19:59 24 Mechanical Ventilator 100 18 19:58 111 18 19:57 Mechanical Ventilator Mechanical Ventilator 02/08/18 19:52 98.6 111 24 110/64 (79) 94 02/08/18 19:20 78 32 96 Mechanical Ventilator 100 02/08/18 19:10 97 32 95 Mechanical Ventilator 100 02/08/18 19:06 97 34 100 02/08/18 19:00 88 26 126/75 (92) 94 02/08/18 19:00 28 Mechanical Ventilator 100 02/08/18 18:00 28 Mechanical Ventilator 100 02/08/18 18:00 85 29 116/72 (87) 94 02/08/18 17:03 76 32 100 02/08/18 17:00 26 Mechanical Ventilator 100 02/08/18 17:00 82 29 128/69 (88) 94 I&O Intake and Output 02/08/18 02/09/18 19:00 07:00 Intake Total 858 ml 1115 ml Output Total 550 ml 650 ml Balance 308 ml 465 ml Free Water 100 ml IV Total 258 ml 415 ml Tube Feeding 600 ml 600 ml Output Urine Total 550 ml 650 ml Dressing: other Wound: other Drains: other Cardiovascular: other Respiratory: decreased breath sounds Abdomen: other Extremities: other Laboratory Tests Test 02/08/18 18:22 02/09/18 04:45 Arterial Blood pH 7.250 (7.350-7.450) Arterial Blood Partial Pressure CO2 104.8 mmHg (35.0-45.0) *H Arterial Blood Partial Pressure O2 66.8 mmHg (75.0-100.0) L Arterial Blood HCO3 45.0 mmol/L (22.0-26.0) *H Arterial Blood Oxygen Saturation 89.1 % (95-100) *L Arterial Blood Base Excess 14.2 (-2-2) *H Dima Test Positive White Blood Count 13.3 K/UL (4.8-10.8) H Red Blood Count 3.07 M/UL (4.70-6.10) L Hemoglobin 9.8 G/DL (14.2-18.0) L Hematocrit 31.2 % (42.0-52.0) L Mean Corpuscular Volume 102 FL (80-99) H Mean Corpuscular Hemoglobin 31.9 PG (27.0-31.0) H Mean Corpuscular Hemoglobin Concent 31.4 G/DL (32.0-36.0) L Red Cell Distribution Width 14.6 % (11.6-14.8) Platelet Count 313 K/UL (150-450) Mean Platelet Volume 7.5 FL (6.5-10.1) Neutrophils (%) (Auto) 81.8 % (45.0-75.0) H Lymphocytes (%) (Auto) 7.8 % (20.0-45.0) L Monocytes (%) (Auto) 9.0 % (1.0-10.0) Eosinophils (%) (Auto) 0.4 % (0.0-3.0) Basophils (%) (Auto) 0.9 % (0.0-2.0) Sodium Level 149 MMOL/L (136-145) H Potassium Level 4.7 MMOL/L (3.5-5.1) Chloride Level 110 MMOL/L (98-107) H Carbon Dioxide Level 39 MMOL/L (21-32) H Anion Gap 1 mmol/L (5-15) L Blood Urea Nitrogen 44 mg/dL (7-18) H Creatinine 1.0 MG/DL (0.55-1.30) Estimat Glomerular Filtration Rate mL/min (>60) Glucose Level 129 MG/DL (74-106) H Calcium Level 7.9 MG/DL (8.5-10.1) L Total Bilirubin 0.4 MG/DL (0.2-1.0) Aspartate Amino Transf (AST/SGOT) 18 U/L (15-37) Alanine Aminotransferase (ALT/SGPT) 21 U/L (12-78) Alkaline Phosphatase 63 U/L (46-116) Total Protein 6.4 G/DL (6.4-8.2) Albumin 1.5 G/DL (3.4-5.0) L Globulin 4.9 g/dL Albumin/Globulin Ratio 0.3 (1.0-2.7) L Plan Problems: (1) Decubitus ulcer of sacral region, stage 3 Assessment & Plan: Stage III full thickness pressure injury sacrum present on admission (L)2cm x (W)1.8cm ,wound bed with 80% yellow slough ,20% granular Borders slightly macerated. Non-blanching erythema without elevation in skin temp, or induration periwound. NO odor noted. Abrasions noted to R elbow (L)3.2cm x (W)1.9cm.Wound with Biofilm ,erythema al; lynn borders .Periwound clean and intact. Abrasion noted to L elbow(L)5.5cm x (W)1.6cm ,biofim noted to wound bed .erythema along borders .Periwound without erythema or elevation in skin temp. Abrasion lateral L knee with dry scab. Abrasion medial R knee with dry scab. Bilat heels boggy with non-blanching erythema. Non-tender when palpated. Pt repositioned with pillow on his side but restless and repositioned self on back. given critical condition will continue with maximal efforts to reduce worsening wounds as in this condition may deteriorate Tx.Plan: Cleanse R and L elbows with Saline.Apply Silvasorb Gel to both elbows .Cover with Optifoam drsg .Change every 3 Days and prn. Cleanse Sacral Pressure injury with Saline.Apply Therahoney .Cavilon periwound.Cover with Optifoam drsg Daily and prn. Apply Cavilon to Both heels.Cover with Optifoam drsg .Change Every 7 days and prn. Cavilon to abrasions R and L lower ext.Cover with Optifoam change every 7 days and prn. Off-load heels with pillow. Reposition at least every 2 hours or as tolerated. Surface support mattress. (2) Abnormal LFTs Assessment & Plan: US reviewed - absent GB dilated ducts CT reviewed - dilated duct without notable obstruction LFT's noted and elevated t bili trending down no jaundice AST/ALT nml Alk phos nml leukocytosis trending down -no acute surgical intervention necessary -t bili and d bili correlate. unlikely obstructive at this time. especially with history of cholecystectomy prior -trend labs thank you (3) Severe sepsis Assessment & Plan: not weaning off vent easy. will likely require shelter vent support vent requirement high consider trach soon but not ready yet unlikely to be able to wean off vent Myke Merino Feb 09, 2018 16:57
--- NOTE | 2018-02-09 20:34 | Pulmonolgy Critical Care Note ---
Critical Care - Asmt/Plan Assessment/Plan: Pulmonary CCM Progress Note Critical Care - Asmt/Plan Problems: (1) Pulmonary fibrosis (2) Multifocal pneumonia (3) Respiratory disorder with ventilator dependence (4) Lactic acid acidosis (5) Abnormal LFTs (6) OLEG (acute kidney injury) (7) SIRS (systemic inflammatory response syndrome) (8) UTI (urinary tract infection) Assessment/Plan: ASSESSMENT: The patient is a 77-year-old male, current daily smoker with history of hypertension, back pain, lack of health maintenance, presenting with respiratory illness, bilateral pneumonia, lactic acidosis, abnormal kidney function and renal function likely OLEG, and shock liver. 01/26: Prog hypoxemia, inc WOB, tx'd to ICU, intubated 01/27: Gas exchange better, trops downtrending, LA resolved 01/30: Oxygenation worse, now on PCV, PEEP increased Bioethics pending Poor prognosis PROBLEM LIST: 1. Bilateral parenchymal infiltrates, multilobar pneumonia on top of underlying fibrotic lung disease 2. VDRF 3. Metabolic & respiratory acidosis 4. Likely underlying pulmonary fibrosis and COPD 5. NSTEMI, likely demand ischemia 6. Lactic acidosis - RESOLVED 7. Abnormal creatinine, likely acute kidney injury - IMPROVED 8. Abnormal liver function tests - IMPROVED 9. SIRS 10. History of hypertension. 11. PNEUMONIA 12. Constipation TREATMENT PLAN: Continue ventilatory support/settings reviewed, monitor gas exchange PEEP 10, adjust FiO2 to keep SaO2 > 90 and <94 ABGnegative fluid balance RTC and PRN DUOnebs Cefepime (D8), Vanco (D7) per ID, F/U Cx's Cautious TF's, monitor residuals ICU sedation: Fentanyl gtt for RASS - 2, Versed 2 mg IV q4 PRN F/U cardiology recs Monitor volumes and renal function, decreased IVF to 25, lasix 20 IV x 1 now Wound care GI recs, bowel regimen Discuss GOC, FC Px: Hep SQ, H2B D/W family, RN, RT and team CCT 45 Critical Care - Objective Vital Signs Noted Status: awake Condition: critical Lungs: rhonchi Heart: HR/BP stable Abdomen: soft, non-tender, active bowel sounds Extremities: no C/C/E Decubiti: location - sacral Blood Sugars: BS controlled Critical Care - Subjective ROS Limited/Unobtainable: Yes ICU Day: 7 Intubation Day: 7 Interval Events: FiO2 inc 70, PEEP 5 Secretions thin clear Edematous UE . LE Condition: critical IV Access: peripheral - x2 FI02: 70 Vent Support Breath Rate: 30 Vent Support Mode: AC Vent Tidal Volume: 600 Sputum Amount: Moderate PEEP: 5.0 PIP: 34 Fluids: D51/2NS @ 50 Drips: Fent off Tube Feeding Amount: 50 Subjective: IRENE ET-Tube: 7.5 ET Position: 23 Labs: Laboratory Tests Test 02/01/18 04:00 White Blood Count 13.1 K/UL (4.8-10.8) H Red Blood Count 3.41 M/UL (4.70-6.10) L Hemoglobin 10.8 G/DL (14.2-18.0) L Hematocrit 32.6 % (42.0-52.0) L Mean Corpuscular Volume 96 FL (80-99) Mean Corpuscular Hemoglobin 31.6 PG (27.0-31.0) H Mean Corpuscular Hemoglobin Concent 33.1 G/DL (32.0-36.0) Red Cell Distribution Width 13.4 % (11.6-14.8) Platelet Count 207 K/UL (150-450) Mean Platelet Volume 8.8 FL (6.5-10.1) Neutrophils (%) (Auto) % (45.0-75.0) Lymphocytes (%) (Auto) % (20.0-45.0) Monocytes (%) (Auto) % (1.0-10.0) Eosinophils (%) (Auto) % (0.0-3.0) Basophils (%) (Auto) % (0.0-2.0) Sodium Level 148 MMOL/L (136-145) H Potassium Level 3.8 MMOL/L (3.5-5.1) Chloride Level 112 MMOL/L (98-107) H Carbon Dioxide Level 31 MMOL/L (21-32) Anion Gap 5 mmol/L (5-15) Blood Urea Nitrogen 36 mg/dL (7-18) H Creatinine 0.8 MG/DL (0.55-1.30) Estimat Glomerular Filtration Rate mL/min (>60) Glucose Level 125 MG/DL (74-106) H Calcium Level 8.1 MG/DL (8.5-10.1) L Phosphorus Level 3.2 MG/DL (2.5-4.9) Magnesium Level 1.8 MG/DL (1.8-2.4) Total Bilirubin 0.7 MG/DL (0.2-1.0) Aspartate Amino Transf (AST/SGOT) 20 U/L (15-37) Alanine Aminotransferase (ALT/SGPT) 16 U/L (12-78) Alkaline Phosphatase 78 U/L (46-116) Total Protein 5.8 G/DL (6.4-8.2) L Albumin 1.4 G/DL (3.4-5.0) L Globulin 4.4 g/dL Albumin/Globulin Ratio 0.3 (1.0-2.7) L Critical Care - Objective Last 24 Hour Vital Signs Date Time Temp Pulse Resp B/P (MAP) Pulse Ox O2 Delivery O2 Flow Rate FiO2 02/09/18 19:30 85 30 98 Mechanical Ventilator 100 02/09/18 19:20 86 30 98 Endotracheal Tube 10.0 100 02/09/18 19:16 86 30 100 02/09/18 19:00 86 30 110/50 (70) 99 02/09/18 18:00 85 19 107/50 (69) 98 02/09/18 18:00 Endotracheal Tube 02/09/18 17:45 Endotracheal Tube 02/09/18 17:32 85 31 100 02/09/18 17:00 85 19 110/47 (68) 98 02/09/18 16:00 86 02/09/18 16:00 Endotracheal Tube 02/09/18 16:00 99.9 86 18 109/52 (71) 99 02/09/18 16:00 10.0 02/09/18 15:00 84 19 115/52 (73) 98 02/09/18 14:45 83 33 100 02/09/18 14:00 84 21 103/53 (70) 97 02/09/18 14:00 Endotracheal Tube 02/09/18 13:31 Endotracheal Tube 02/09/18 13:23 90 30 94 Mechanical Ventilator 100 02/09/18 13:19 80 31 98 Mechanical Ventilator 100 02/09/18 13:00 22 Endotracheal Tube 02/09/18 13:00 79 21 103/69 (80) 98 02/09/18 12:57 89 37 100 02/09/18 12:00 99.8 80 19 110/52 (71) 98 12/20/18 12:00 Endotracheal Tube 02/09/18 12:00 19 Endotracheal Tube 02/09/18 12:00 2.0 02/09/18 12:00 77 02/09/18 11:05 83 38 100 02/09/18 11:00 20 Endotracheal Tube 100 02/09/18 11:00 100 24 103/69 (80) 98 02/09/18 10:30 10.0 02/09/18 10:05 20 Endotracheal Tube 02/09/18 10:00 77 20 98/48 (65) 96 02/09/18 09:00 20 Endotracheal Tube 02/09/18 09:00 77 95/46 02/09/18 09:00 77 20 95/46 (62) 97 02/09/18 08:52 97 02/09/18 08:51 101 33 100 02/09/18 08:00 76 02/09/18 08:00 99.3 77 21 104/50 (68) 97 02/09/18 08:00 21 Endotracheal Tube 02/09/18 08:00 100 02/09/18 07:57 Endotracheal Tube 02/09/18 07:37 100 33 97 Mechanical Ventilator 100 02/09/18 07:33 101 32 96 Mechanical Ventilator 100 02/09/18 07:31 101 33 100 02/09/18 07:00 70 26 114/45 (68) 98 02/09/18 07:00 22 Endotracheal Tube 02/09/18 06:00 99 26 107/55 (72) 98 02/09/18 05:55 24 Mechanical Ventilator 10.0 100 02/09/18 05:13 81 31 Mechanical Ventilator 100 02/09/18 05:12 83 31 100 02/09/18 05:00 90 26 121/64 (83) 98 02/09/18 05:00 24 Mechanical Ventilator 100 02/09/18 04:00 98 22 121/64 (83) 98 02/09/18 04:00 100 02/09/18 04:00 24 Mechanical Ventilator 100 02/09/18 04:00 Mechanical Ventilator Mechanical Ventilator 02/09/18 04:00 71 02/09/18 03:29 30 Mechanical Ventilator 100 02/09/18 03:12 81 34 100 02/09/18 03:00 75 22 112/58 (76) 94 02/09/18 02:00 20 Mechanical Ventilator 100 02/09/18 01:53 74 22 121/64 (83) 98 02/09/18 01:31 81 34 95 Mechanical Ventilator 100 02/09/18 01:21 75 33 95 Mechanical Ventilator 100 02/09/18 01:20 75 33 100 02/09/18 01:00 22 Mechanical Ventilator 100 02/09/18 01:00 74 24 110/60 (77) 93 02/09/18 00:00 98.6 74 24 104/54 (71) 93 02/09/18 00:00 71 02/09/18 00:00 100 02/09/18 00:00 24 Mechanical Ventilator 100 02/09/18 00:00 Mechanical Ventilator Mechanical Ventilator 02/08/18 23:00 71 24 100/56 (71) 93 02/08/18 23:00 23 Mechanical Ventilator 100 02/08/18 22:45 66 33 100 02/08/18 22:00 24 Mechanical Ventilator 100 02/08/18 22:00 68 24 95/52 (66) 93 02/08/18 21:24 100 98/53 02/08/18 21:02 82 34 100 02/08/18 21:00 24 Mechanical Ventilator 100 02/08/18 21:00 67 25 98/53 (68) 94 Critical Care - Subjective ROS Limited/Unobtainable: No FI02: 100 Vent Support Breath Rate: 30 Vent Support Mode: AC Vent Tidal Volume: 600 Sputum Amount: Scant PEEP: 15.0 PIP: 41 Tube Feeding Amount: 50 I&O: Intake and Output 02/08/18 02/09/18 19:00 07:00 Intake Total 858 ml 1115 ml Output Total 550 ml 650 ml Balance 308 ml 465 ml Free Water 100 ml IV Total 258 ml 415 ml Tube Feeding 600 ml 600 ml Output Urine Total 550 ml 650 ml ET-Tube: 7.5 ET Position: 23 Tyrel Gonzalez MD Feb 09, 2018 20:34
--- NOTE | 2018-02-09 21:52 | General Progress Note ---
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 (2) Renal insufficiency ICD Codes: N28.9 - Disorder of kidney and ureter, unspecified; R65.20 - Severe sepsis without septic shock SNOMED: 038242841, 460290338 (3) UTI (urinary tract infection) ICD Codes: N39.0 - Urinary tract infection, site not specified SNOMED: 41927207, 506733439 Qualifiers: Qualified Codes: N39.0 - Urinary tract infection, site not specified (4) Pneumonia ICD Codes: J18.9 - Pneumonia, unspecified organism SNOMED: 953722216 Qualifiers: Qualified Codes: J18.1 - Lobar pneumonia, unspecified organism (5) Severe sepsis ICD Codes: A41.9 - Sepsis, unspecified organism; R65.20 - Severe sepsis without septic shock SNOMED: 42290267 (6) Hypoxia ICD Codes: R09.02 - Hypoxemia; R65.20 - Severe sepsis without septic shock SNOMED: 174834888, 980355292 (7) Pulmonary fibrosis ICD Codes: J84.10 - Pulmonary fibrosis, unspecified SNOMED: 99906905 (8) Lactic acid acidosis ICD Codes: E87.2 - Acidosis SNOMED: 71344413 (9) OLEG (acute kidney injury) ICD Codes: N17.9 - Acute kidney failure, unspecified SNOMED: 55631296 (10) Abnormal LFTs ICD Codes: R94.5 - Abnormal results of liver function studies SNOMED: 288347023 Status: progressing Assessment/Plan severe pulmonary firbrosis resp failure pna sepsis uti rhonci intubated no change lytes good no bleeding gi prophylaxis Subjective ROS Limited/Unobtainable: Yes Allergies: Coded Allergies: No Known Allergies (Unverified , 01/24/18) Objective Last 24 Hour Vital Signs Date Time Temp Pulse Resp B/P (MAP) Pulse Ox O2 Delivery O2 Flow Rate FiO2 02/09/18 21:00 87 30 112/53 (72) 99 02/09/18 21:00 30 Endotracheal Tube 100 02/09/18 20:41 104 30 90 02/09/18 20:00 100 02/09/18 20:00 99.7 87 30 103/54 (70) 99 02/09/18 20:00 30 Endotracheal Tube 100 02/09/18 20:00 Endotracheal Tube 02/09/18 19:30 85 30 98 Mechanical Ventilator 100 02/09/18 19:20 86 30 98 Endotracheal Tube 10.0 100 02/09/18 19:16 86 30 100 02/09/18 19:00 30 Endotracheal Tube 100 02/09/18 19:00 86 30 110/50 (70) 99 02/09/18 18:00 85 19 107/50 (69) 98 18 18:00 Endotracheal Tube 02/09/18 17:45 Endotracheal Tube 02/09/18 17:32 85 31 100 02/09/18 17:00 85 19 110/47 (68) 98 02/09/18 16:00 86 02/09/18 16:00 Endotracheal Tube 02/09/18 16:00 99.9 86 18 109/52 (71) 99 02/09/18 16:00 10.0 02/09/18 15:00 84 19 115/52 (73) 98 02/09/18 14:45 83 33 100 02/09/18 14:00 84 21 103/53 (70) 97 02/09/18 14:00 Endotracheal Tube 02/09/18 13:31 Endotracheal Tube 02/09/18 13:23 90 30 94 Mechanical Ventilator 100 02/09/18 13:19 80 31 98 Mechanical Ventilator 100 02/09/18 13:00 22 Endotracheal Tube 02/09/18 13:00 79 21 103/69 (80) 98 02/09/18 12:57 89 37 100 02/09/18 12:00 99.8 80 19 110/52 (71) 98 02/09/18 12:00 Endotracheal Tube 02/09/18 12:00 19 Endotracheal Tube 02/09/18 12:00 2.0 02/09/18 12:00 77 02/09/18 11:05 83 38 100 02/09/18 11:00 20 Endotracheal Tube 100 02/09/18 11:00 100 24 103/69 (80) 98 02/09/18 10:30 10.0 02/09/18 10:05 20 Endotracheal Tube 02/09/18 10:00 77 20 98/48 (65) 96 02/09/18 09:00 20 Endotracheal Tube 02/09/18 09:00 77 95/46 02/09/18 09:00 77 20 95/46 (62) 97 02/09/18 08:52 97 02/09/18 08:51 101 33 100 02/09/18 08:00 76 02/09/18 08:00 99.3 77 21 104/50 (68) 97 02/09/18 08:00 21 Endotracheal Tube 02/09/18 08:00 100 02/09/18 07:57 Endotracheal Tube 02/09/18 07:37 100 33 97 Mechanical Ventilator 100 02/09/18 07:33 101 32 96 Mechanical Ventilator 100 02/09/18 07:31 101 33 100 02/09/18 07:00 70 26 114/45 (68) 98 02/09/18 07:00 22 Endotracheal Tube 02/09/18 06:00 99 26 107/55 (72) 98 02/09/18 05:55 24 Mechanical Ventilator 10.0 100 02/09/18 05:13 81 31 Mechanical Ventilator 100 02/09/18 05:12 83 31 100 02/09/18 05:00 90 26 121/64 (83) 98 02/09/18 05:00 24 Mechanical Ventilator 100 02/09/18 04:00 98 22 121/64 (83) 98 02/09/18 04:00 100 02/09/18 04:00 24 Mechanical Ventilator 100 02/09/18 04:00 Mechanical Ventilator Mechanical Ventilator 02/09/18 04:00 71 02/09/18 03:29 30 Mechanical Ventilator 100 02/09/18 03:12 81 34 100 02/09/18 03:00 75 22 112/58 (76) 94 02/09/18 02:00 20 Mechanical Ventilator 100 02/09/18 01:53 74 22 121/64 (83) 98 02/09/18 01:31 81 34 95 Mechanical Ventilator 100 02/09/18 01:21 75 33 95 Mechanical Ventilator 100 02/09/18 01:20 75 33 100 02/09/18 01:00 22 Mechanical Ventilator 100 02/09/18 01:00 74 24 110/60 (77) 93 02/09/18 00:00 98.6 74 24 104/54 (71) 93 18 00:00 71 02/09/18 00:00 100 02/09/18 00:00 24 Mechanical Ventilator 100 02/09/18 00:00 Mechanical Ventilator Mechanical Ventilator 02/08/18 23:00 71 24 100/56 (71) 93 02/08/18 23:00 23 Mechanical Ventilator 100 02/08/18 22:45 66 33 100 02/08/18 22:00 24 Mechanical Ventilator 100 02/08/18 22:00 68 24 95/52 (66) 93 Intake and Output 02/08/18 02/09/18 19:00 07:00 Intake Total 858 ml 1115 ml Output Total 550 ml 650 ml Balance 308 ml 465 ml Free Water 100 ml IV Total 258 ml 415 ml Tube Feeding 600 ml 600 ml Output Urine Total 550 ml 650 ml Laboratory Tests 02/09/18 04:45: White Blood Count 13.3H, Red Blood Count 3.07L, Hemoglobin 9.8L, Hematocrit 31.2L, Mean Corpuscular Volume 102H, Mean Corpuscular Hemoglobin 31.9H, Mean Corpuscular Hemoglobin Concent 31.4L, Red Cell Distribution Width 14.6, Platelet Count 313, Mean Platelet Volume 7.5, Neutrophils (%) (Auto) 81.8H, Lymphocytes (%) (Auto) 7.8L, Monocytes (%) (Auto) 9.0, Eosinophils (%) (Auto) 0.4, Basophils (%) (Auto) 0.9, Sodium Level 149H, Potassium Level 4.7, Chloride Level 110H, Carbon Dioxide Level 39H, Anion Gap 1L, Blood Urea Nitrogen 44H, Creatinine 1.0, Estimat Glomerular Filtration Rate , Glucose Level 129H, Calcium Level 7.9L, Total Bilirubin 0.4, Aspartate Amino Transf (AST/SGOT) 18, Alanine Aminotransferase (ALT/SGPT) 21, Alkaline Phosphatase 63, Total Protein 6.4, Albumin 1.5L, Globulin 4.9, Albumin/Globulin Ratio 0.3L Height (Feet): 5 Height (Inches): 9.00 Weight (Pounds): 175 General Appearance: confused Respiratory/Chest: rhonchi - bilaterally Edwin Corrigan MD Feb 09, 2018 21:52
[2018-02-09] MEDS: Miralax 17gm pkt NG SCH (21:57)
[2018-02-10] VITALS (37 sets, daily range): BP systolic 66–144; BP diastolic 35–65
[2018-02-10] MEDS: Albuterol/Ipratropium 3ml neb HHN SCH ×4 (00:56→19:04)
[2018-02-10 05:45] LABS: BASOPHILS % (AUTO) 1.1 % (0.0-2.0); EOSINOPHILS % (AUTO) 0.6 % (0.0-3.0); HEMATOCRIT 32.7 % (42.0-52.0); HEMOGLOBIN 9.9 G/DL (14.2-18.0); LYMPHOCYTES % (AUTO) 9.5 % (20.0-45.0); MEAN CORPUSCULAR VOLUME 104 FL (80-99); MONOCYTES % (AUTO) 10.1 % (1.0-10.0); NEUTROPHILS % (AUTO) 78.7 % (45.0-75.0); PLATELET COUNT 283 K/UL (150-450); RED BLOOD COUNT 3.14 M/UL (4.70-6.10); RED CELL DISTRIBUTION WIDTH 14.6 % (11.6-14.8)
[2018-02-10 06:41] LABS: ALANINE AMINOTRANSFERASE 18 U/L (12-78); ALBUMIN 1.6 G/DL (3.4-5.0); ALBUMIN/GLOBULIN RATIO 0.3 (1.0-2.7); ALKALINE PHOSPHATASE 62 U/L (46-116); ANION GAP 0 mmol/L (5-15); ASPARTATE AMINO TRANSFERASE 18 U/L (15-37); BILIRUBIN,TOTAL 0.6 MG/DL (0.2-1.0); BLOOD UREA NITROGEN 56 mg/dL (7-18); CALCIUM 8.2 MG/DL (8.5-10.1); CARBON DIOXIDE 40 MMOL/L (21-32); CHLORIDE 110 MMOL/L (98-107); CREATININE 1.2 MG/DL (0.55-1.30); SODIUM 150 MMOL/L (136-145)
[2018-02-10] MEDS: Metoprolol Tartrate 50mg tab ORAL SCH (08:49)
[2018-02-10] MEDS: Heparin 5000 units/ml inj SUBQ SCH ×2 (08:54→20:50)
--- NOTE | 2018-02-10 09:13 | Cardiac Electrophysiology PN ---
Assessment/Plan Assessment/Plan 1. Type 2 NSTEMI. The levels are flat. No CP Due to the respiratory failure and azotemia. Echo normal EF 2. Respiratory failure, due to PNA and COPD and CHF. The patient is on the ventilator. Antibiotic per ID Failed weaning. Tracheostomy pending if family and Dr Merino agrees 3. Hypokalemia, corrected 4. Azotemia and hypernatremia. On D5 1/[address] Mclaughlin Na still 149 5. Elevated bilirubin of 2.3. Down to 1.1 DW RN Subjective Subjective In ICU on the Vent and Fentanyl drip 60. In SR on 85% Fio2 and PEEP 15. In SR Objective Last 24 Hour Vital Signs Date Time Temp Pulse Resp B/P (MAP) Pulse Ox O2 Delivery O2 Flow Rate FiO2 02/10/18 08:49 106 107/50 02/10/18 08:01 86 30 99 Mechanical Ventilator 90 02/10/18 07:20 109 30 98 Mechanical Ventilator 90 02/10/18 07:20 109 30 90 02/10/18 07:00 16 Endotracheal Tube 90 02/10/18 07:00 87 15 108/50 (69) 97 02/10/18 06:00 109 15 114/52 (72) 97 02/10/18 06:00 15 Endotracheal Tube 90 02/10/18 05:17 89 34 90 02/10/18 05:00 17 Endotracheal Tube 90 02/10/18 05:00 91 19 118/50 (72) 98 02/10/18 04:00 90 02/10/18 04:00 98.0 87 17 113/50 (71) 97 02/10/18 04:00 17 Endotracheal Tube 90 02/10/18 04:00 Endotracheal Tube 02/10/18 04:00 88 02/10/18 03:05 87 35 90 02/10/18 03:00 88 19 112/54 (73) 94 02/10/18 03:00 20 Endotracheal Tube 90 02/10/18 02:00 20 Endotracheal Tube 90 02/10/18 02:00 86 17 115/61 (79) 99 02/10/18 01:10 84 30 98 Mechanical Ventilator 90 02/10/18 01:00 90 17 102/51 (68) 99 02/10/18 01:00 19 Endotracheal Tube 90 02/10/18 00:54 83 31 97 Endotracheal Tube 90 02/10/18 00:53 85 31 90 02/10/18 00:00 98.9 87 17 103/52 (69) 98 02/10/18 00:00 16 Endotracheal Tube 90 02/10/18 00:00 Endotracheal Tube 02/10/18 00:00 90 02/09/18 23:13 99.7 02/09/18 23:02 85 02/09/18 23:00 85 15 122/57 (78) 98 02/09/18 23:00 16 Endotracheal Tube 90 02/09/18 22:45 87 30 90 02/09/18 22:43 30 90 18 22:01 87 110/50 02/09/18 22:00 87 30 112/53 (72) 100 02/09/18 22:00 27 Endotracheal Tube 90 02/09/18 21:00 87 30 112/53 (72) 99 02/09/18 21:00 30 Endotracheal Tube 100 02/09/18 20:41 104 30 90 02/09/18 20:02 104 02/09/18 20:00 100 02/09/18 20:00 99.7 87 30 103/54 (70) 99 18 20:00 30 Endotracheal Tube 100 02/09/18 20:00 Endotracheal Tube 02/09/18 19:30 85 30 98 Mechanical Ventilator 100 02/09/18 19:20 86 30 98 Endotracheal Tube 10.0 100 02/09/18 19:16 86 30 100 02/09/18 19:00 30 Endotracheal Tube 100 02/09/18 19:00 86 30 110/50 (70) 99 18 18:00 85 19 107/50 (69) 98 18 18:00 Endotracheal Tube 02/09/18 17:45 Endotracheal Tube 02/09/18 17:32 85 31 100 02/09/18 17:00 85 19 110/47 (68) 98 02/09/18 16:00 86 02/09/18 16:00 Endotracheal Tube 02/09/18 16:00 99.9 86 18 109/52 (71) 99 02/09/18 16:00 10.0 02/09/18 15:00 84 19 115/52 (73) 98 18 14:45 83 33 100 12/20/18 14:00 84 21 103/53 (70) 97 02/09/18 14:00 Endotracheal Tube 02/09/18 13:31 Endotracheal Tube 02/09/18 13:23 90 30 94 Mechanical Ventilator 100 02/09/18 13:19 80 31 98 Mechanical Ventilator 100 02/09/18 13:00 22 Endotracheal Tube 02/09/18 13:00 79 21 103/69 (80) 98 02/09/18 12:57 89 37 100 02/09/18 12:00 99.8 80 19 110/52 (71) 98 02/09/18 12:00 Endotracheal Tube 02/09/18 12:00 19 Endotracheal Tube 02/09/18 12:00 2.0 02/09/18 12:00 77 02/09/18 11:05 83 38 100 02/09/18 11:00 20 Endotracheal Tube 100 02/09/18 11:00 100 24 103/69 (80) 98 02/09/18 10:30 10.0 02/09/18 10:05 20 Endotracheal Tube 02/09/18 10:00 77 20 98/48 (65) 96 Intake and Output 02/09/18 02/10/18 19:00 07:00 Intake Total 1140 ml 1217.83 ml Output Total 505 ml 460 ml Balance 635 ml 757.83 ml Free Water 100 ml 150 ml IV Total 440 ml 467.83 ml Tube Feeding 600 ml 600 ml Output Urine Total 505 ml 460 ml # Bowel Movements 4 Laboratory Tests Test 02/10/18 04:30 White Blood Count 13.0 K/UL (4.8-10.8) H Red Blood Count 3.14 M/UL (4.70-6.10) L Hemoglobin 9.9 G/DL (14.2-18.0) L Hematocrit 32.7 % (42.0-52.0) L Mean Corpuscular Volume 104 FL (80-99) H Mean Corpuscular Hemoglobin 31.4 PG (27.0-31.0) H Mean Corpuscular Hemoglobin Concent 30.2 G/DL (32.0-36.0) L Red Cell Distribution Width 14.6 % (11.6-14.8) Platelet Count 283 K/UL (150-450) Mean Platelet Volume 7.4 FL (6.5-10.1) Neutrophils (%) (Auto) 78.7 % (45.0-75.0) H Lymphocytes (%) (Auto) 9.5 % (20.0-45.0) L Monocytes (%) (Auto) 10.1 % (1.0-10.0) H Eosinophils (%) (Auto) 0.6 % (0.0-3.0) Basophils (%) (Auto) 1.1 % (0.0-2.0) Sodium Level 150 MMOL/L (136-145) H Potassium Level 5.0 MMOL/L (3.5-5.1) Chloride Level 110 MMOL/L (98-107) H Carbon Dioxide Level 40 MMOL/L (21-32) H Anion Gap 0 mmol/L (5-15) L Blood Urea Nitrogen 56 mg/dL (7-18) H Creatinine 1.2 MG/DL (0.55-1.30) Estimat Glomerular Filtration Rate mL/min (>60) Glucose Level 104 MG/DL (74-106) Calcium Level 8.2 MG/DL (8.5-10.1) L Total Bilirubin 0.6 MG/DL (0.2-1.0) Aspartate Amino Transf (AST/SGOT) 18 U/L (15-37) Alanine Aminotransferase (ALT/SGPT) 18 U/L (12-78) Alkaline Phosphatase 62 U/L (46-116) Total Protein 6.3 G/DL (6.4-8.2) L Albumin 1.6 G/DL (3.4-5.0) L Globulin 4.7 g/dL Albumin/Globulin Ratio 0.3 (1.0-2.7) L Objective HEAD AND NECK: Orally intubated. NG tube is in LUNGS: Coarse rhonchi CARDIOVASCULAR: Regular S1 and S2 with no murmur. ABDOMEN: Soft. EXTREMITIES: No pitting edema Josep Brar MD Feb 10, 2018 09:13
[2018-02-10] MEDS ORDERED: Heparin 2000 units/Ns 1000ml INJ PRN (11:00)
[2018-02-10] MEDS ORDERED: Lidocaine 1% Plain 30 ml INJ PRN (11:00)
[2018-02-10 11:25] LABS: BASOPHILS % (AUTO) 1.6 % (0.0-2.0); EOSINOPHILS % (AUTO) 0.3 % (0.0-3.0); HEMATOCRIT 31.5 % (42.0-52.0); HEMOGLOBIN 9.5 G/DL (14.2-18.0); LYMPHOCYTES % (AUTO) 7.6 % (20.0-45.0); MEAN CORPUSCULAR VOLUME 104 FL (80-99); MONOCYTES % (AUTO) 8.1 % (1.0-10.0); NEUTROPHILS % (AUTO) 82.5 % (45.0-75.0); PLATELET COUNT 277 K/UL (150-450); RED BLOOD COUNT 3.03 M/UL (4.70-6.10); RED CELL DISTRIBUTION WIDTH 14.6 % (11.6-14.8); WHITE BLOOD COUNT 12.3 K/UL (4.8-10.8)
[2018-02-10 11:31] LABS: ANION GAP 0 mmol/L (5-15); BLOOD UREA NITROGEN 66 mg/dL (7-18); CALCIUM 7.9 MG/DL (8.5-10.1); CARBON DIOXIDE 41 MMOL/L (21-32); CHLORIDE 110 MMOL/L (98-107); CREATININE 1.5 MG/DL (0.55-1.30); POTASSIUM 5.6 MMOL/L (3.5-5.1); SODIUM 151 MMOL/L (136-145)
--- NOTE | 2018-02-10 11:31 | General Surgery Progress Note ---
General Surgery-Progress Note Subjective Additional Comments declining. less awake today. peep still 15. fi02 80% Objective Last 24 Hour Vital Signs Date Time Temp Pulse Resp B/P (MAP) Pulse Ox O2 Delivery O2 Flow Rate FiO2 02/10/18 10:30 70 18 88/44 (59) 97 02/10/18 10:00 71 15 79/62 (68) 95 02/10/18 09:58 15 Mechanical Ventilator 85 02/10/18 09:29 99 02/10/18 09:00 99.1 106 15 111/54 (73) 97 02/10/18 08:49 106 107/50 02/10/18 08:45 104 31 85 02/10/18 08:01 86 30 99 Mechanical Ventilator 90 02/10/18 08:00 88 02/10/18 08:00 Endotracheal Tube 02/10/18 08:00 100.3 87 15 113/51 (71) 87 02/10/18 08:00 90 02/10/18 07:20 109 30 98 Mechanical Ventilator 90 02/10/18 07:20 109 30 90 02/10/18 07:00 16 Endotracheal Tube 90 02/10/18 07:00 87 15 108/50 (69) 97 02/10/18 06:00 109 15 114/52 (72) 97 02/10/18 06:00 15 Endotracheal Tube 90 02/10/18 05:17 89 34 90 02/10/18 05:00 17 Endotracheal Tube 90 02/10/18 05:00 91 19 118/50 (72) 98 02/10/18 04:00 90 02/10/18 04:00 98.0 87 17 113/50 (71) 97 02/10/18 04:00 17 Endotracheal Tube 90 02/10/18 04:00 Endotracheal Tube 02/10/18 04:00 88 02/10/18 03:05 87 35 90 02/10/18 03:00 88 19 112/54 (73) 94 02/10/18 03:00 20 Endotracheal Tube 90 02/10/18 02:00 20 Endotracheal Tube 90 02/10/18 02:00 86 17 115/61 (79) 99 02/10/18 01:10 84 30 98 Mechanical Ventilator 90 02/10/18 01:00 90 17 102/51 (68) 99 02/10/18 01:00 19 Endotracheal Tube 90 02/10/18 00:54 83 31 97 Endotracheal Tube 90 02/10/18 00:53 85 31 90 02/10/18 00:00 98.9 87 17 103/52 (69) 98 02/10/18 00:00 16 Endotracheal Tube 90 02/10/18 00:00 Endotracheal Tube 02/10/18 00:00 90 02/09/18 23:13 99.7 02/09/18 23:02 85 02/09/18 23:00 85 15 122/57 (78) 98 02/09/18 23:00 16 Endotracheal Tube 90 02/09/18 22:45 87 30 90 02/09/18 22:43 30 90 02/09/18 22:01 87 110/50 02/09/18 22:00 87 30 112/53 (72) 100 02/09/18 22:00 27 Endotracheal Tube 90 02/09/18 21:00 87 30 112/53 (72) 99 02/09/18 21:00 30 Endotracheal Tube 100 02/09/18 20:41 104 30 90 02/09/18 20:02 104 02/09/18 20:00 100 02/09/18 20:00 99.7 87 30 103/54 (70) 99 02/09/18 20:00 30 Endotracheal Tube 100 02/09/18 20:00 Endotracheal Tube 02/09/18 19:30 85 30 98 Mechanical Ventilator 100 02/09/18 19:20 86 30 98 Endotracheal Tube 10.0 100 02/09/18 19:16 86 30 100 02/09/18 19:00 30 Endotracheal Tube 100 02/09/18 19:00 86 30 110/50 (70) 99 18 18:00 85 19 107/50 (69) 98 18 18:00 Endotracheal Tube 02/09/18 17:45 Endotracheal Tube 02/09/18 17:32 85 31 100 02/09/18 17:00 85 19 110/47 (68) 98 02/09/18 16:00 86 02/09/18 16:00 Endotracheal Tube 02/09/18 16:00 99.9 86 18 109/52 (71) 99 02/09/18 16:00 10.0 02/09/18 15:00 84 19 115/52 (73) 98 02/09/18 14:45 83 33 100 02/09/18 14:00 84 21 103/53 (70) 97 02/09/18 14:00 Endotracheal Tube 02/09/18 13:31 Endotracheal Tube 02/09/18 13:23 90 30 94 Mechanical Ventilator 100 02/09/18 13:19 80 31 98 Mechanical Ventilator 100 02/09/18 13:00 22 Endotracheal Tube 02/09/18 13:00 79 21 103/69 (80) 98 02/09/18 12:57 89 37 100 02/09/18 12:00 99.8 80 19 110/52 (71) 98 02/09/18 12:00 Endotracheal Tube 02/09/18 12:00 19 Endotracheal Tube 02/09/18 12:00 2.0 02/09/18 12:00 77 I&O Intake and Output 02/09/18 02/10/18 19:00 07:00 Intake Total 1140 ml 1217.83 ml Output Total 505 ml 460 ml Balance 635 ml 757.83 ml Free Water 100 ml 150 ml IV Total 440 ml 467.83 ml Tube Feeding 600 ml 600 ml Output Urine Total 505 ml 460 ml # Bowel Movements 4 Cardiovascular: RSR Respiratory: decreased breath sounds Abdomen: soft, flat, present bowel sounds Extremities: other Laboratory Tests Test 02/10/18 04:30 02/10/18 11:00 02/10/18 11:05 White Blood Count 13.0 K/UL (4.8-10.8) H Pending Red Blood Count 3.14 M/UL (4.70-6.10) L Pending Hemoglobin 9.9 G/DL (14.2-18.0) L Pending Hematocrit 32.7 % (42.0-52.0) L Pending Mean Corpuscular Volume 104 FL (80-99) H Pending Mean Corpuscular Hemoglobin 31.4 PG (27.0-31.0) H Pending Mean Corpuscular Hemoglobin Concent 30.2 G/DL (32.0-36.0) L Pending Red Cell Distribution Width 14.6 % (11.6-14.8) Pending Platelet Count 283 K/UL (150-450) Pending Mean Platelet Volume 7.4 FL (6.5-10.1) Pending Neutrophils (%) (Auto) 78.7 % (45.0-75.0) H Pending Lymphocytes (%) (Auto) 9.5 % (20.0-45.0) L Pending Monocytes (%) (Auto) 10.1 % (1.0-10.0) H Pending Eosinophils (%) (Auto) 0.6 % (0.0-3.0) Pending Basophils (%) (Auto) 1.1 % (0.0-2.0) Pending Sodium Level 150 MMOL/L (136-145) H Pending Potassium Level 5.0 MMOL/L (3.5-5.1) Pending Chloride Level 110 MMOL/L (98-107) H Pending Carbon Dioxide Level 40 MMOL/L (21-32) H Pending Anion Gap 0 mmol/L (5-15) L Blood Urea Nitrogen 56 mg/dL (7-18) H Pending Creatinine 1.2 MG/DL (0.55-1.30) Pending Estimat Glomerular Filtration Rate mL/min (>60) Pending Glucose Level 104 MG/DL (74-106) Pending Calcium Level 8.2 MG/DL (8.5-10.1) L Pending Total Bilirubin 0.6 MG/DL (0.2-1.0) Pending Aspartate Amino Transf (AST/SGOT) 18 U/L (15-37) Pending Alanine Aminotransferase (ALT/SGPT) 18 U/L (12-78) Pending Alkaline Phosphatase 62 U/L (46-116) Pending Total Protein 6.3 G/DL (6.4-8.2) L Pending Albumin 1.6 G/DL (3.4-5.0) L Pending Globulin 4.7 g/dL Pending Albumin/Globulin Ratio 0.3 (1.0-2.7) L Arterial Blood pH 7.276 (7.350-7.450) Arterial Blood Partial Pressure CO2 88.6 mmHg (35.0-45.0) *H Arterial Blood Partial Pressure O2 81.8 mmHg (75.0-100.0) Arterial Blood HCO3 40.3 mmol/L (22.0-26.0) *H Arterial Blood Oxygen Saturation 95.1 % (95-100) Arterial Blood Base Excess 10.9 (-2-2) *H Dima Test Positive Lactic Acid Level Pending Plan Problems: (1) Decubitus ulcer of sacral region, stage 3 Assessment & Plan: Stage III full thickness pressure injury sacrum present on admission (L)2cm x (W)1.8cm ,wound bed with 80% yellow slough ,20% granular Borders slightly macerated. Non-blanching erythema without elevation in skin temp, or induration periwound. NO odor noted. Abrasions noted to R elbow (L)3.2cm x (W)1.9cm.Wound with Biofilm ,erythema al; lynn borders .Periwound clean and intact. Abrasion noted to L elbow(L)5.5cm x (W)1.6cm ,biofim noted to wound bed .erythema along borders .Periwound without erythema or elevation in skin temp. Abrasion lateral L knee with dry scab. Abrasion medial R knee with dry scab. Bilat heels boggy with non-blanching erythema. Non-tender when palpated. Pt repositioned with pillow on his side but restless and repositioned self on back. given critical condition will continue with maximal efforts to reduce worsening wounds as in this condition may deteriorate Tx.Plan: Cleanse R and L elbows with Saline.Apply Silvasorb Gel to both elbows .Cover with Optifoam drsg .Change every 3 Days and prn. Cleanse Sacral Pressure injury with Saline.Apply Therahoney .Cavilon periwound.Cover with Optifoam drsg Daily and prn. Apply Cavilon to Both heels.Cover with Optifoam drsg .Change Every 7 days and prn. Cavilon to abrasions R and L lower ext.Cover with Optifoam change every 7 days and prn. Off-load heels with pillow. Reposition at least every 2 hours or as tolerated. Surface support mattress. (2) Abnormal LFTs Assessment & Plan: US reviewed - absent GB dilated ducts CT reviewed - dilated duct without notable obstruction LFT's noted and elevated t bili trending down no jaundice AST/ALT nml Alk phos nml leukocytosis trending down -no acute surgical intervention necessary -t bili and d bili correlate. unlikely obstructive at this time. especially with history of cholecystectomy prior -trend labs thank you (3) Severe sepsis Assessment & Plan: not weaning off vent easy. 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
[2018-02-10 11:35] LABS: ALANINE AMINOTRANSFERASE 18 U/L (12-78); ALBUMIN 1.5 G/DL (3.4-5.0); ALBUMIN/GLOBULIN RATIO 0.3 (1.0-2.7); ALKALINE PHOSPHATASE 62 U/L (46-116); ASPARTATE AMINO TRANSFERASE 17 U/L (15-37); BILIRUBIN,TOTAL 0.5 MG/DL (0.2-1.0)
--- NOTE | 2018-02-10 13:12 | Nephrology Progress Note ---
Assessment/Plan Problem List: (1) OLEG (acute kidney injury) Assessment: resolved (2) Abnormal LFTs (3) Lactic acid acidosis (4) UTI (urinary tract infection) (5) Respiratory disorder with ventilator dependence (6) Pulmonary fibrosis Assessment Acute renal failure, resolved high K resolved Pneumonia / Sepsis / Hypoxia / UTI HypoAlbuminemia / Proteinuria Acute respiratory failure Pulmonary fibrosis Lactic acidosis Plan change IV to D5 Down on Lopressor dose- albumin bolus Pulm support / on vent IV antibiotics Watch electrolytes Gastric support Per orders ? Trach taper sedatives?? Subjective ROS Limited/Unobtainable: Yes Objective Objective Last 24 Hour Vital Signs Date Time Temp Pulse Resp B/P (MAP) Pulse Ox O2 Delivery O2 Flow Rate FiO2 02/10/18 12:58 72 32 100 Mechanical Ventilator 80 02/10/18 12:55 69 30 85 02/10/18 12:53 70 33 99 Mechanical Ventilator 02/10/18 12:06 74 33 85 02/10/18 12:00 Endotracheal Tube 02/10/18 12:00 85 02/10/18 12:00 71 18 100/52 (68) 99 02/10/18 11:45 71 18 88/45 (59) 99 02/10/18 11:30 71 18 86/46 (59) 99 02/10/18 11:15 71 18 84/47 (59) 99 02/10/18 11:00 71 18 90/50 (63) 98 02/10/18 11:00 71 18 90/55 (67) 98 02/10/18 10:45 71 18 78/39 (52) 97 02/10/18 10:40 16 Mechanical Ventilator 85 02/10/18 10:30 70 18 88/44 (59) 97 02/10/18 10:30 16 Mechanical Ventilator 85 02/10/18 10:15 71 15 79/62 (68) 96 02/10/18 10:15 15 Mechanical Ventilator 85 02/10/18 10:00 71 15 79/62 (68) 95 02/10/18 10:00 16 Mechanical Ventilator 85 02/10/18 09:58 15 Mechanical Ventilator 85 02/10/18 09:29 99 02/10/18 09:00 99.1 106 15 111/54 (73) 97 02/10/18 09:00 17 Mechanical Ventilator 85 02/10/18 08:49 106 107/50 02/10/18 08:45 104 31 85 02/10/18 08:01 86 30 99 Mechanical Ventilator 90 02/10/18 08:00 88 02/10/18 08:00 Endotracheal Tube 02/10/18 08:00 16 Mechanical Ventilator 85 02/10/18 08:00 100.3 87 15 113/51 (71) 87 02/10/18 08:00 90 02/10/18 07:40 15 Mechanical Ventilator 85 02/10/18 07:20 109 30 98 Mechanical Ventilator 90 02/10/18 07:20 109 30 90 02/10/18 07:00 16 Endotracheal Tube 90 02/10/18 07:00 87 15 108/50 (69) 97 02/10/18 06:00 109 15 114/52 (72) 97 02/10/18 06:00 15 Endotracheal Tube 90 02/10/18 05:17 89 34 90 02/10/18 05:00 17 Endotracheal Tube 90 02/10/18 05:00 91 19 118/50 (72) 98 02/10/18 04:00 90 02/10/18 04:00 98.0 87 17 113/50 (71) 97 02/10/18 04:00 17 Endotracheal Tube 90 02/10/18 04:00 Endotracheal Tube 02/10/18 04:00 88 02/10/18 03:05 87 35 90 02/10/18 03:00 88 19 112/54 (73) 94 02/10/18 03:00 20 Endotracheal Tube 90 02/10/18 02:00 20 Endotracheal Tube 90 02/10/18 02:00 86 17 115/61 (79) 99 02/10/18 01:10 84 30 98 Mechanical Ventilator 90 02/10/18 01:00 90 17 102/51 (68) 99 02/10/18 01:00 19 Endotracheal Tube 90 02/10/18 00:54 83 31 97 Endotracheal Tube 90 02/10/18 00:53 85 31 90 02/10/18 00:00 98.9 87 17 103/52 (69) 98 02/10/18 00:00 16 Endotracheal Tube 90 02/10/18 00:00 Endotracheal Tube 02/10/18 00:00 90 02/09/18 23:13 99.7 02/09/18 23:02 85 02/09/18 23:00 85 15 122/57 (78) 98 02/09/18 23:00 16 Endotracheal Tube 90 02/09/18 22:45 87 30 90 02/09/18 22:43 30 90 18 22:01 87 110/50 02/09/18 22:00 87 30 112/53 (72) 100 18 22:00 27 Endotracheal Tube 90 02/09/18 21:00 87 30 112/53 (72) 99 02/09/18 21:00 30 Endotracheal Tube 100 02/09/18 20:41 104 30 90 18 20:02 104 02/09/18 20:00 100 02/09/18 20:00 99.7 87 30 103/54 (70) 99 02/09/18 20:00 30 Endotracheal Tube 100 02/09/18 20:00 Endotracheal Tube 02/09/18 19:30 85 30 98 Mechanical Ventilator 100 02/09/18 19:20 86 30 98 Endotracheal Tube 10.0 100 02/09/18 19:16 86 30 100 02/09/18 19:00 30 Endotracheal Tube 100 02/09/18 19:00 86 30 110/50 (70) 99 18 18:00 85 19 107/50 (69) 98 18 18:00 Endotracheal Tube 02/09/18 17:45 Endotracheal Tube 02/09/18 17:32 85 31 100 02/09/18 17:00 85 19 110/47 (68) 98 02/09/18 16:00 86 02/09/18 16:00 Endotracheal Tube 02/09/18 16:00 99.9 86 18 109/52 (71) 99 02/09/18 16:00 10.0 02/09/18 15:00 84 19 115/52 (73) 98 02/09/18 14:45 83 33 100 02/09/18 14:00 84 21 103/53 (70) 97 18 14:00 Endotracheal Tube 02/09/18 13:31 Endotracheal Tube 02/09/18 13:23 90 30 94 Mechanical Ventilator 100 02/09/18 13:19 80 31 98 Mechanical Ventilator 100 Intake and Output 02/09/18 02/10/18 19:00 07:00 Intake Total 1140 ml 1217.83 ml Output Total 505 ml 460 ml Balance 635 ml 757.83 ml Free Water 100 ml 150 ml IV Total 440 ml 467.83 ml Tube Feeding 600 ml 600 ml Output Urine Total 505 ml 460 ml # Bowel Movements 4 Laboratory Tests 02/10/18 04:30: White Blood Count 13.0H, Red Blood Count 3.14L, Hemoglobin 9.9L, Hematocrit 32.7L, Mean Corpuscular Volume 104H, Mean Corpuscular Hemoglobin 31.4H, Mean Corpuscular Hemoglobin Concent 30.2L, Red Cell Distribution Width 14.6, Platelet Count 283, Mean Platelet Volume 7.4, Neutrophils (%) (Auto) 78.7H, Lymphocytes (%) (Auto) 9.5L, Monocytes (%) (Auto) 10.1H, Eosinophils (%) (Auto) 0.6, Basophils (%) (Auto) 1.1, Sodium Level 150H, Potassium Level 5.0, Chloride Level 110H, Carbon Dioxide Level 40H, Anion Gap 0L, Blood Urea Nitrogen 56H, Creatinine 1.2, Estimat Glomerular Filtration Rate , Glucose Level 104, Calcium Level 8.2L, Total Bilirubin 0.6, Aspartate Amino Transf (AST/SGOT) 18, Alanine Aminotransferase (ALT/SGPT) 18, Alkaline Phosphatase 62, Total Protein 6.3L, Albumin 1.6L, Globulin 4.7, Albumin/Globulin Ratio 0.3L 02/10/18 11:00: Arterial Blood pH 7.276L, Arterial Blood Partial Pressure CO2 88.6*H, Arterial Blood Partial Pressure O2 81.8, Arterial Blood HCO3 40.3*H, Arterial Blood Oxygen Saturation 95.1, Arterial Blood Base Excess 10.9*H, Dima Test Positive 02/10/18 11:05: White Blood Count 12.3H, Red Blood Count 3.03L, Hemoglobin 9.5L, Hematocrit 31.5L, Mean Corpuscular Volume 104H, Mean Corpuscular Hemoglobin 31.4H, Mean Corpuscular Hemoglobin Concent 30.2L, Red Cell Distribution Width 14.6, Platelet Count 277, Mean Platelet Volume 7.3, Neutrophils (%) (Auto) 82.5H, Lymphocytes (%) (Auto) 7.6L, Monocytes (%) (Auto) 8.1, Eosinophils (%) (Auto) 0.3, Basophils (%) (Auto) 1.6, Sodium Level 151H, Potassium Level 5.6H, Chloride Level 110H, Carbon Dioxide Level 41*H, Anion Gap 0L, Blood Urea Nitrogen 66H, Creatinine 1.5H, Estimat Glomerular Filtration Rate , Glucose Level 145H, Calcium Level 7.9L, Total Bilirubin 0.5, Aspartate Amino Transf (AST /SGOT) 17, Alanine Aminotransferase (ALT/SGPT) 18, Alkaline Phosphatase 62, Total Protein 6.0L, Albumin 1.5L, Globulin 4.5, Albumin/Globulin Ratio 0.3L, Lactic Acid Level 1.50 Height (Feet): 5 Height (Inches): 9.00 Weight (Pounds): 188 General Appearance: other - sedated EENT: other - vented Cardiovascular: normal rate Respiratory/Chest: decreased breath sounds Abdomen: distended Objective no change Juan C Mclaughlin MD Feb 10, 2018 13:12
--- NOTE | 2018-02-10 15:17 | GI Progress Note ---
Assessment/Plan Problems: (1) Constipation ICD Codes: K59.00 - Constipation, unspecified SNOMED: 59020265 (2) Gastroparesis ICD Codes: K31.84 - Gastroparesis SNOMED: 265738890 (3) Abnormal LFTs ICD Codes: R94.5 - Abnormal results of liver function studies SNOMED: 427350649 Status: not improved, unchanged Status Narrative Discussed with Dr. Salgado. Assessment/Plan hepatitis panel reviewed >> active Hep A infection anemia work up reviewed >> folate and iron deficiency recent KUB >> no acute findings Dysphagia NGTFs per RD to goal >> PEG when stable low dose erythromycin if needed for GI motility OB stool r/o GI bleed uncollected monitor H&H, prn transfusions constipation - bowel regime >> lactulose TID ppi folate fu labs poor prognosis The patient was seen and examined at bedside and all new and available data was reviewed in the patients chart. I agree with the above findings, impression and plan. (Patient seen earlier today. Signature stamp does not reflect patient encounter time.). - Peter Salgado MD Subjective Subjective limited Objective Last 24 Hour Vital Signs Date Time Temp Pulse Resp B/P (MAP) Pulse Ox O2 Delivery O2 Flow Rate FiO2 02/10/18 14:58 69 32 85 02/10/18 14:00 70 22 104/41 (62) 95 02/10/18 13:30 72 23 89/45 (60) 96 02/10/18 13:00 72 23 95/46 (62) 96 02/10/18 12:58 72 32 100 Mechanical Ventilator 80 02/10/18 12:55 69 30 85 02/10/18 12:53 70 33 99 Mechanical Ventilator 02/10/18 12:30 100.0 72 19 95/46 (62) 97 02/10/18 12:06 74 33 85 02/10/18 12:00 Endotracheal Tube 02/10/18 12:00 70 02/10/18 12:00 85 02/10/18 12:00 71 18 100/52 (68) 99 02/10/18 11:45 71 18 88/45 (59) 99 02/10/18 11:30 71 18 86/46 (59) 99 02/10/18 11:15 71 18 84/47 (59) 99 12/21/18 11:00 71 18 90/50 (63) 98 18 11:00 71 18 90/55 (67) 98 02/10/18 10:45 71 18 78/39 (52) 97 18 10:40 16 Mechanical Ventilator 85 18 10:30 70 18 88/44 (59) 97 02/10/18 10:30 16 Mechanical Ventilator 85 02/10/18 10:15 71 15 79/62 (68) 96 02/10/18 10:15 15 Mechanical Ventilator 85 02/10/18 10:00 71 15 79/62 (68) 95 02/10/18 10:00 16 Mechanical Ventilator 85 02/10/18 09:58 15 Mechanical Ventilator 85 02/10/18 09:29 99 02/10/18 09:00 99.1 106 15 111/54 (73) 97 02/10/18 09:00 17 Mechanical Ventilator 85 02/10/18 08:49 106 107/50 02/10/18 08:45 104 31 85 02/10/18 08:01 86 30 99 Mechanical Ventilator 90 02/10/18 08:00 88 02/10/18 08:00 Endotracheal Tube 02/10/18 08:00 16 Mechanical Ventilator 85 02/10/18 08:00 100.3 87 15 113/51 (71) 87 02/10/18 08:00 90 02/10/18 07:40 15 Mechanical Ventilator 85 02/10/18 07:20 109 30 98 Mechanical Ventilator 90 02/10/18 07:20 109 30 90 02/10/18 07:00 16 Endotracheal Tube 90 02/10/18 07:00 87 15 108/50 (69) 97 02/10/18 06:00 109 15 114/52 (72) 97 02/10/18 06:00 15 Endotracheal Tube 90 02/10/18 05:17 89 34 90 02/10/18 05:00 17 Endotracheal Tube 90 02/10/18 05:00 91 19 118/50 (72) 98 02/10/18 04:00 90 02/10/18 04:00 98.0 87 17 113/50 (71) 97 02/10/18 04:00 17 Endotracheal Tube 90 02/10/18 04:00 Endotracheal Tube 02/10/18 04:00 88 02/10/18 03:05 87 35 90 02/10/18 03:00 88 19 112/54 (73) 94 02/10/18 03:00 20 Endotracheal Tube 90 02/10/18 02:00 20 Endotracheal Tube 90 02/10/18 02:00 86 17 115/61 (79) 99 02/10/18 01:10 84 30 98 Mechanical Ventilator 90 02/10/18 01:00 90 17 102/51 (68) 99 02/10/18 01:00 19 Endotracheal Tube 90 02/10/18 00:54 83 31 97 Endotracheal Tube 90 02/10/18 00:53 85 31 90 02/10/18 00:00 98.9 87 17 103/52 (69) 98 02/10/18 00:00 16 Endotracheal Tube 90 02/10/18 00:00 Endotracheal Tube 02/10/18 00:00 90 02/09/18 23:13 99.7 02/09/18 23:02 85 02/09/18 23:00 85 15 122/57 (78) 98 02/09/18 23:00 16 Endotracheal Tube 90 02/09/18 22:45 87 30 90 02/09/18 22:43 30 90 02/09/18 22:01 87 110/50 02/09/18 22:00 87 30 112/53 (72) 100 18 22:00 27 Endotracheal Tube 90 02/09/18 21:00 87 30 112/53 (72) 99 02/09/18 21:00 30 Endotracheal Tube 100 02/09/18 20:41 104 30 90 02/09/18 20:02 104 02/09/18 20:00 100 02/09/18 20:00 99.7 87 30 103/54 (70) 99 18 20:00 30 Endotracheal Tube 100 02/09/18 20:00 Endotracheal Tube 02/09/18 19:30 85 30 98 Mechanical Ventilator 100 02/09/18 19:20 86 30 98 Endotracheal Tube 10.0 100 02/09/18 19:16 86 30 100 18 19:00 30 Endotracheal Tube 100 18 19:00 86 30 110/50 (70) 99 2018 18:00 85 19 107/50 (69) 98 18 18:00 Endotracheal Tube 02/09/18 17:45 Endotracheal Tube 02/09/18 17:32 85 31 100 02/09/18 17:00 85 19 110/47 (68) 98 02/09/18 16:00 86 02/09/18 16:00 Endotracheal Tube 02/09/18 16:00 99.9 86 18 109/52 (71) 99 02/09/18 16:00 10.0 Intake and Output 02/09/18 02/10/18 19:00 07:00 Intake Total 1140 ml 1217.83 ml Output Total 505 ml 460 ml Balance 635 ml 757.83 ml Free Water 100 ml 150 ml IV Total 440 ml 467.83 ml Tube Feeding 600 ml 600 ml Output Urine Total 505 ml 460 ml # Bowel Movements 4 Laboratory Tests Test 02/10/18 04:30 02/10/18 11:00 02/10/18 11:05 White Blood Count 13.0 K/UL (4.8-10.8) H 12.3 K/UL (4.8-10.8) H Red Blood Count 3.14 M/UL (4.70-6.10) L 3.03 M/UL (4.70-6.10) L Hemoglobin 9.9 G/DL (14.2-18.0) L 9.5 G/DL (14.2-18.0) L Hematocrit 32.7 % (42.0-52.0) L 31.5 % (42.0-52.0) L Mean Corpuscular Volume 104 FL (80-99) H 104 FL (80-99) H Mean Corpuscular Hemoglobin 31.4 PG (27.0-31.0) H 31.4 PG (27.0-31.0) H Mean Corpuscular Hemoglobin Concent 30.2 G/DL (32.0-36.0) L 30.2 G/DL (32.0-36.0) L Red Cell Distribution Width 14.6 % (11.6-14.8) 14.6 % (11.6-14.8) Platelet Count 283 K/UL (150-450) 277 K/UL (150-450) Mean Platelet Volume 7.4 FL (6.5-10.1) 7.3 FL (6.5-10.1) Neutrophils (%) (Auto) 78.7 % (45.0-75.0) H 82.5 % (45.0-75.0) H Lymphocytes (%) (Auto) 9.5 % (20.0-45.0) L 7.6 % (20.0-45.0) L Monocytes (%) (Auto) 10.1 % (1.0-10.0) H 8.1 % (1.0-10.0) Eosinophils (%) (Auto) 0.6 % (0.0-3.0) 0.3 % (0.0-3.0) Basophils (%) (Auto) 1.1 % (0.0-2.0) 1.6 % (0.0-2.0) Sodium Level 150 MMOL/L (136-145) H 151 MMOL/L (136-145) H Potassium Level 5.0 MMOL/L (3.5-5.1) 5.6 MMOL/L (3.5-5.1) H Chloride Level 110 MMOL/L (98-107) H 110 MMOL/L (98-107) H Carbon Dioxide Level 40 MMOL/L (21-32) H 41 MMOL/L (21-32) *H Anion Gap 0 mmol/L (5-15) L 0 mmol/L (5-15) L Blood Urea Nitrogen 56 mg/dL (7-18) H 66 mg/dL (7-18) H Creatinine 1.2 MG/DL (0.55-1.30) 1.5 MG/DL (0.55-1.30) H Estimat Glomerular Filtration Rate mL/min (>60) mL/min (>60) Glucose Level 104 MG/DL (74-106) 145 MG/DL (74-106) H Calcium Level 8.2 MG/DL (8.5-10.1) L 7.9 MG/DL (8.5-10.1) L Total Bilirubin 0.6 MG/DL (0.2-1.0) 0.5 MG/DL (0.2-1.0) Aspartate Amino Transf (AST/SGOT) 18 U/L (15-37) 17 U/L (15-37) Alanine Aminotransferase (ALT/SGPT) 18 U/L (12-78) 18 U/L (12-78) Alkaline Phosphatase 62 U/L (46-116) 62 U/L (46-116) Total Protein 6.3 G/DL (6.4-8.2) L 6.0 G/DL (6.4-8.2) L Albumin 1.6 G/DL (3.4-5.0) L 1.5 G/DL (3.4-5.0) L Globulin 4.7 g/dL 4.5 g/dL Albumin/Globulin Ratio 0.3 (1.0-2.7) L 0.3 (1.0-2.7) L Arterial Blood pH 7.276 (7.350-7.450) Arterial Blood Partial Pressure CO2 88.6 mmHg (35.0-45.0) *H Arterial Blood Partial Pressure O2 81.8 mmHg (75.0-100.0) Arterial Blood HCO3 40.3 mmol/L (22.0-26.0) *H Arterial Blood Oxygen Saturation 95.1 % (95-100) Arterial Blood Base Excess 10.9 (-2-2) *H Dima Test Positive Lactic Acid Level 1.50 mmol/L (0.4-2.0) C-Reactive Protein, Quantitative 12.4 mg/dL (0.00-0.90) H Microbiology Date/Time Source Procedure Growth Status 02/09/18 17:00 Sputum Gram Stain - Final Resulted 02/09/18 17:00 Sputum Sputum Culture Pending Resulted Height (Feet): 5 Height (Inches): 9.00 Weight (Pounds): 188 General Appearance: no apparent distress Cardiovascular: normal rate Respiratory/Chest: other - mech vent Abdominal Exam: other - NGT Willa Woods NP Feb 10, 2018 15:17
--- NOTE | 2018-02-10 15:18 | General Progress Note ---
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 (2) Renal insufficiency ICD Codes: N28.9 - Disorder of kidney and ureter, unspecified; R65.20 - Severe sepsis without septic shock SNOMED: 266199200, 486566683 (3) UTI (urinary tract infection) ICD Codes: N39.0 - Urinary tract infection, site not specified SNOMED: 00101182, 599165112 Qualifiers: Qualified Codes: N39.0 - Urinary tract infection, site not specified (4) Pneumonia ICD Codes: J18.9 - Pneumonia, unspecified organism SNOMED: 770701466 Qualifiers: Qualified Codes: J18.1 - Lobar pneumonia, unspecified organism (5) Severe sepsis ICD Codes: A41.9 - Sepsis, unspecified organism; R65.20 - Severe sepsis without septic shock SNOMED: 39100017 (6) Hypoxia ICD Codes: R09.02 - Hypoxemia; R65.20 - Severe sepsis without septic shock SNOMED: 331557150, 314697268 (7) Pulmonary fibrosis ICD Codes: J84.10 - Pulmonary fibrosis, unspecified SNOMED: 63436536 (8) Lactic acid acidosis ICD Codes: E87.2 - Acidosis SNOMED: 73101095 (9) OLEG (acute kidney injury) ICD Codes: N17.9 - Acute kidney failure, unspecified SNOMED: 94143727 (10) Abnormal LFTs ICD Codes: R94.5 - Abnormal results of liver function studies SNOMED: 468135825 Status: deteriorating Assessment/Plan acute onset of unresponsivess will try to get neuro to see him off fentynl dehration resp failure intubated pulmonary fibrosis failure to wean poor prognosis trach per pulmonary Subjective Allergies: Coded Allergies: No Known Allergies (Unverified , 01/24/18) Objective Last 24 Hour Vital Signs Date Time Temp Pulse Resp B/P (MAP) Pulse Ox O2 Delivery O2 Flow Rate FiO2 02/10/18 14:58 69 32 85 02/10/18 14:00 70 22 104/41 (62) 95 02/10/18 13:30 72 23 89/45 (60) 96 02/10/18 13:00 72 23 95/46 (62) 96 02/10/18 12:58 72 32 100 Mechanical Ventilator 80 02/10/18 12:55 69 30 85 02/10/18 12:53 70 33 99 Mechanical Ventilator 02/10/18 12:30 100.0 72 19 95/46 (62) 97 02/10/18 12:06 74 33 85 02/10/18 12:00 Endotracheal Tube 02/10/18 12:00 70 18 12:00 85 02/10/18 12:00 71 18 100/52 (68) 99 02/10/18 11:45 71 18 88/45 (59) 99 02/10/18 11:30 71 18 86/46 (59) 99 18 11:15 71 18 84/47 (59) 99 02/10/18 11:00 71 18 90/50 (63) 98 02/10/18 11:00 71 18 90/55 (67) 98 02/10/18 10:45 71 18 78/39 (52) 97 02/10/18 10:40 16 Mechanical Ventilator 85 02/10/18 10:30 70 18 88/44 (59) 97 02/10/18 10:30 16 Mechanical Ventilator 85 02/10/18 10:15 71 15 79/62 (68) 96 02/10/18 10:15 15 Mechanical Ventilator 85 02/10/18 10:00 71 15 79/62 (68) 95 02/10/18 10:00 16 Mechanical Ventilator 85 02/10/18 09:58 15 Mechanical Ventilator 85 02/10/18 09:29 99 02/10/18 09:00 99.1 106 15 111/54 (73) 97 02/10/18 09:00 17 Mechanical Ventilator 85 02/10/18 08:49 106 107/50 02/10/18 08:45 104 31 85 02/10/18 08:01 86 30 99 Mechanical Ventilator 90 02/10/18 08:00 88 02/10/18 08:00 Endotracheal Tube 02/10/18 08:00 16 Mechanical Ventilator 85 02/10/18 08:00 100.3 87 15 113/51 (71) 87 02/10/18 08:00 90 02/10/18 07:40 15 Mechanical Ventilator 85 02/10/18 07:20 109 30 98 Mechanical Ventilator 90 02/10/18 07:20 109 30 90 02/10/18 07:00 16 Endotracheal Tube 90 02/10/18 07:00 87 15 108/50 (69) 97 02/10/18 06:00 109 15 114/52 (72) 97 02/10/18 06:00 15 Endotracheal Tube 90 02/10/18 05:17 89 34 90 02/10/18 05:00 17 Endotracheal Tube 90 02/10/18 05:00 91 19 118/50 (72) 98 02/10/18 04:00 90 02/10/18 04:00 98.0 87 17 113/50 (71) 97 02/10/18 04:00 17 Endotracheal Tube 90 02/10/18 04:00 Endotracheal Tube 02/10/18 04:00 88 02/10/18 03:05 87 35 90 02/10/18 03:00 88 19 112/54 (73) 94 02/10/18 03:00 20 Endotracheal Tube 90 02/10/18 02:00 20 Endotracheal Tube 90 02/10/18 02:00 86 17 115/61 (79) 99 02/10/18 01:10 84 30 98 Mechanical Ventilator 90 02/10/18 01:00 90 17 102/51 (68) 99 02/10/18 01:00 19 Endotracheal Tube 90 02/10/18 00:54 83 31 97 Endotracheal Tube 90 02/10/18 00:53 85 31 90 02/10/18 00:00 98.9 87 17 103/52 (69) 98 02/10/18 00:00 16 Endotracheal Tube 90 02/10/18 00:00 Endotracheal Tube 02/10/18 00:00 90 02/09/18 23:13 99.7 02/09/18 23:02 85 02/09/18 23:00 85 15 122/57 (78) 98 02/09/18 23:00 16 Endotracheal Tube 90 02/09/18 22:45 87 30 90 02/09/18 22:43 30 90 02/09/18 22:01 87 110/50 02/09/18 22:00 87 30 112/53 (72) 100 18 22:00 27 Endotracheal Tube 90 02/09/18 21:00 87 30 112/53 (72) 99 02/09/18 21:00 30 Endotracheal Tube 100 02/09/18 20:41 104 30 90 02/09/18 20:02 104 02/09/18 20:00 100 02/09/18 20:00 99.7 87 30 103/54 (70) 99 02/09/18 20:00 30 Endotracheal Tube 100 02/09/18 20:00 Endotracheal Tube 02/09/18 19:30 85 30 98 Mechanical Ventilator 100 02/09/18 19:20 86 30 98 Endotracheal Tube 10.0 100 02/09/18 19:16 86 30 100 02/09/18 19:00 30 Endotracheal Tube 100 02/09/18 19:00 86 30 110/50 (70) 99 02/09/18 18:00 85 19 107/50 (69) 98 18 18:00 Endotracheal Tube 02/09/18 17:45 Endotracheal Tube 02/09/18 17:32 85 31 100 02/09/18 17:00 85 19 110/47 (68) 98 02/09/18 16:00 86 02/09/18 16:00 Endotracheal Tube 02/09/18 16:00 99.9 86 18 109/52 (71) 99 02/09/18 16:00 10.0 Intake and Output 02/09/18 02/10/18 19:00 07:00 Intake Total 1140 ml 1217.83 ml Output Total 505 ml 460 ml Balance 635 ml 757.83 ml Free Water 100 ml 150 ml IV Total 440 ml 467.83 ml Tube Feeding 600 ml 600 ml Output Urine Total 505 ml 460 ml # Bowel Movements 4 Laboratory Tests 02/10/18 04:30: White Blood Count 13.0H, Red Blood Count 3.14L, Hemoglobin 9.9L, Hematocrit 32.7L, Mean Corpuscular Volume 104H, Mean Corpuscular Hemoglobin 31.4H, Mean Corpuscular Hemoglobin Concent 30.2L, Red Cell Distribution Width 14.6, Platelet Count 283, Mean Platelet Volume 7.4, Neutrophils (%) (Auto) 78.7H, Lymphocytes (%) (Auto) 9.5L, Monocytes (%) (Auto) 10.1H, Eosinophils (%) (Auto) 0.6, Basophils (%) (Auto) 1.1, Sodium Level 150H, Potassium Level 5.0, Chloride Level 110H, Carbon Dioxide Level 40H, Anion Gap 0L, Blood Urea Nitrogen 56H, Creatinine 1.2, Estimat Glomerular Filtration Rate , Glucose Level 104, Calcium Level 8.2L, Total Bilirubin 0.6, Aspartate Amino Transf (AST/SGOT) 18, Alanine Aminotransferase (ALT/SGPT) 18, Alkaline Phosphatase 62, Total Protein 6.3L, Albumin 1.6L, Globulin 4.7, Albumin/Globulin Ratio 0.3L 02/10/18 11:00: Arterial Blood pH 7.276L, Arterial Blood Partial Pressure CO2 88.6*H, Arterial Blood Partial Pressure O2 81.8, Arterial Blood HCO3 40.3*H, Arterial Blood Oxygen Saturation 95.1, Arterial Blood Base Excess 10.9*H, Dima Test Positive 02/10/18 11:05: White Blood Count 12.3H, Red Blood Count 3.03L, Hemoglobin 9.5L, Hematocrit 31.5L, Mean Corpuscular Volume 104H, Mean Corpuscular Hemoglobin 31.4H, Mean Corpuscular Hemoglobin Concent 30.2L, Red Cell Distribution Width 14.6, Platelet Count 277, Mean Platelet Volume 7.3, Neutrophils (%) (Auto) 82.5H, Lymphocytes (%) (Auto) 7.6L, Monocytes (%) (Auto) 8.1, Eosinophils (%) (Auto) 0.3, Basophils (%) (Auto) 1.6, Sodium Level 151H, Potassium Level 5.6H, Chloride Level 110H, Carbon Dioxide Level 41*H, Anion Gap 0L, Blood Urea Nitrogen 66H, Creatinine 1.5H, Estimat Glomerular Filtration Rate , Glucose Level 145H, Calcium Level 7.9L, Total Bilirubin 0.5, Aspartate Amino Transf (AST /SGOT) 17, Alanine Aminotransferase (ALT/SGPT) 18, Alkaline Phosphatase 62, Total Protein 6.0L, Albumin 1.5L, Globulin 4.5, Albumin/Globulin Ratio 0.3L, Lactic Acid Level 1.50, C-Reactive Protein, Quantitative 12.4H Height (Feet): 5 Height (Inches): 9.00 Weight (Pounds): 188 General Appearance: lethargic Edwin Corrigan MD Feb 10, 2018 15:18
--- NOTE | 2018-02-10 17:00 | Diagnostic Imaging Report ---
Indications: Needs long-term IV access Technique: Procedure performed at bedside. Procedural timeout performed. Ultrasound confirms patent compressible left basilic vein. Total sterile technique, including sterile probe cover and sterile gel, sterile gloves, hand hygiene, hat, mask,, sterile gown, large sterile drape, and preparation with 2% chlorhexidine utilized. Local anesthesia with 1% lidocaine. Under real-time ultrasound guidance, puncture basilic vein using 21-gauge needle, passage 0.018 guidewire, exchange for 5 [place] peel-away sheath. 5 [place] Bard dual-lumen power PICC cut to 49 cm. It was inserted through the peel-away sheath. Peel-away sheath and guidewire removed. Catheter fixed to the skin. Both catheter ports aspirated and flushed. Patient tolerated procedure well, without immediate complication. Followup chest x-ray obtained, documents catheter tip position at the mid superior vena cava Impression: Successful bedside placement of left arm PICC under sonographic guidance, as described above.
[2018-02-10] MEDS: DOPamine 400mg/250ml 250 ML IV SCH ×2 (18:08→21:53)
[2018-02-10] MEDS: Dyna-Hex 2% Top Sol 2oz TOPIC SCH (20:09)
[2018-02-10] MEDS: Miralax 17gm pkt NG SCH (20:49)
[2018-02-10] MEDS ORDERED: Sodium Bicarbonate 150 ML in D5W 1000ml 1,000 ML IV SCH (21:00)
[2018-02-10] MEDS ORDERED: Metoprolol 25mg tab ORAL SCH (21:00)
--- NOTE | 2018-02-10 21:45 | Emergency Room Report ---
History of Present Illness General Chief Complaint: Generalized Weakness Source: Medical Record Present Illness Allergies: Coded Allergies: No Known Allergies (Unverified , 01/24/18) Nursing Documentation-[facility] Past Medical History Deferred: Pt Cognitively Impaired Past Medical History: No History, Except For Hx Cardiac Problems: No Hx Hypertension: No - Hypotension Hx Cancer: No Hx Gastrointestinal Problems: No Hx Neurological Problems: No Physical Exam Vital Signs Date Time Temp Pulse Resp B/P (MAP) Pulse Ox O2 Delivery O2 Flow Rate FiO2 02/06/18 07:00 30 Mechanical Ventilator 70 02/06/18 07:00 76 110/52 (71) 97 02/06/18 08:00 98.0 02/07/18 09:16 100.0 Procedures Critical Care Time Critical Care Time i. I feel this is a highly complex case requiring extensive working including EKG/Rhythm strip, Xray/CT/US, Blood/urine lab work, repeat exams while in ED, and administration of strong opiates/narcotics for pain control, admission to hospital or close patient follow up. Total time: 30 min bedside evaluation and treatment excludes procedures (EKG). Reason for critical care: hypotension, hypoxia, cardiac arrest Possible complications: hypotension, hypertension, AK, shock, arrhythmias, metabolic acidosis, end organ damage, respiratory failure. Interventions: Cardiac monitoring. Atropine. Levophed, dopamine Course: Patient became increasingly unresponsive. Hypoxic and bradycardic, becoming asystolic. [facility] called. Patient was to be given atropine and then epinephrine but patient regained pulses. O2 sats improved while being bagged. Patient remains hypotensive, bradycardic. Started on levophed, dopamine Consultations: nursing staff, EMS, family Performed by: Dr Jaimes Tolerated well condition = critical j. because of unstable vital signs this patient had a condition that could potentially threaten life or limb. I feel this is a critical patient who required my full attention while patient was considered critical. Total Critical Care Time excluding procedures was greater than 35 minutes CPR/Code Blue CPR/Code Blue Narrative see code blue sheet for full narrative Medical Decision Making Diagnostic Impression: Primary Impression: Episode of generalized weakness Additional Impressions: Severe sepsis Renal insufficiency Hypoxia UTI (urinary tract infection) Pneumonia Qualified Codes: J18.1 - Lobar pneumonia, unspecified organism ER Course I was called to [facility] in the ICU. Patient became increasingly unresponsive, bradycardic and hypoxic. Patient then lost pulses. [facility] was called. Upon my arrival patient had regained pulses. No medications were administered. Patient was bradycardic, hypotensive. Patient was started on Levophed, Dopamine. Last Vital Signs Date Time Temp Pulse Resp B/P (MAP) Pulse Ox O2 Delivery O2 Flow Rate FiO2 02/10/18 21:10 89 32 100 02/10/18 21:00 144/60 (88) 91 02/10/18 20:00 99.5 02/10/18 19:14 Mechanical Ventilator 02/09/18 19:20 10.0 Status: improved Disposition: ADMITTED INPATIENT Condition: Critical Referrals: NON PHYSICIAN (PCP) Huan Jaimes MD Feb 10, 2018 21:45
[2018-02-10] MEDS: Sodium Bicarbonate 150 ML in D5W 1000ml 1,000 ML IV SCH (22:34)
[2018-02-10 23:19] LABS: APPEARANCE,URINE CLOUDY; BILIRUBIN, URINE NEGATIVE (NEGATIVE); GLUCOSE, URINE (UA) NEGATIVE (NEGATIVE); KETONES,URINE NEGATIVE (NEGATIVE); LEUKOCYTE ESTERASE ,URINE 2+ (NEGATIVE); NITRITE,URINE NEGATIVE (NEGATIVE); PH,URINE 5 (4.5-8.0); PROTEIN,URINE 3+ (NEGATIVE); UROBILINOGEN,URINE NORMAL MG/DL (0.0-1.0)
[2018-02-10 23:24] LABS: COLOR,URINE YELLOW
[2018-02-11] VITALS (63 sets, daily range): BP systolic 96–146; BP diastolic 44–121
--- NOTE | 2018-02-11 01:28 | General Progress Note ---
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 (2) UTI (urinary tract infection) ICD Codes: N39.0 - Urinary tract infection, site not specified SNOMED: 17605647, [id number] Qualifiers: Qualified Codes: N39.0 - Urinary tract infection, site not specified (3) Severe sepsis ICD Codes: A41.9 - Sepsis, unspecified organism; R65.20 - Severe sepsis without septic shock SNOMED: 45156394 Assessment/Plan cont Haldol the family should make decisions the pt lacks capacity provided ro/st Subjective Neurologic/Psychiatric: Reports: anxiety Allergies: Coded Allergies: No Known Allergies (Unverified , 01/24/18) Subjective the pt is the same. waxing and waning. in restraints. agitated confused no changes Objective Last 24 Hour Vital Signs Date Time Temp Pulse Resp B/P (MAP) Pulse Ox O2 Delivery O2 Flow Rate FiO2 02/11/18 00:30 88 31 122/60 (80) 97 02/11/18 00:00 Mechanical Ventilator 02/11/18 00:00 99.2 90 27 128/58 (81) 95 02/11/18 00:00 128/58 02/10/18 23:30 106 28 133/63 (86) 96 02/10/18 23:23 106 31 100 02/10/18 23:00 106 29 139/63 (88) 94 02/10/18 23:00 139/63 02/10/18 22:30 142/65 02/10/18 22:30 106 29 142/65 (90) 94 02/10/18 22:25 133/59 02/10/18 22:10 139/62 02/10/18 22:00 106 28 138/64 (88) 93 02/10/18 22:00 138/64 02/10/18 21:53 132/55 02/10/18 21:30 89 29 135/58 (83) 93 02/10/18 21:10 89 32 100 02/10/18 21:00 144/60 02/10/18 21:00 88 31 144/60 (88) 91 02/10/18 20:30 88 30 135/54 (81) 93 02/10/18 20:00 Mechanical Ventilator 02/10/18 20:00 100 02/10/18 20:00 132/52 02/10/18 20:00 99.5 91 30 132/51 (78) 93 02/10/18 19:56 90 02/10/18 19:30 94 18 131/54 (79) 92 02/10/18 19:14 95 30 92 Mechanical Ventilator 100 02/10/18 19:04 92 34 92 Mechanical Ventilator 02/10/18 19:03 92 30 100 02/10/18 19:00 94 22 128/48 (74) 89 02/10/18 19:00 128/48 02/10/18 18:08 87/45 02/10/18 18:00 93 22 134/55 (81) 89 02/10/18 17:00 22 22 66/35 (45) 89 02/10/18 16:49 69 30 85 02/10/18 16:00 99.8 69 22 86/43 (57) 95 02/10/18 16:00 85 02/10/18 16:00 69 02/10/18 16:00 Mechanical Ventilator 02/10/18 15:00 69 19 95/46 (62) 95 02/10/18 14:58 69 32 85 02/10/18 14:00 70 22 104/41 (62) 95 02/10/18 13:30 72 23 89/45 (60) 96 02/10/18 13:00 72 23 95/46 (62) 96 02/10/18 12:58 72 32 100 Mechanical Ventilator 80 02/10/18 12:55 69 30 85 02/10/18 12:53 70 33 99 Mechanical Ventilator 02/10/18 12:30 100.0 72 19 95/46 (62) 97 02/10/18 12:06 74 33 85 02/10/18 12:00 Endotracheal Tube 02/10/18 12:00 70 02/10/18 12:00 85 02/10/18 12:00 71 18 100/52 (68) 99 02/10/18 11:45 71 18 88/45 (59) 99 02/10/18 11:30 71 18 86/46 (59) 99 02/10/18 11:15 71 18 84/47 (59) 99 02/10/18 11:00 71 18 90/50 (63) 98 02/10/18 11:00 71 18 90/55 (67) 98 12/21/18 10:45 71 18 78/39 (52) 97 02/10/18 10:40 16 Mechanical Ventilator 85 02/10/18 10:30 70 18 88/44 (59) 97 02/10/18 10:30 16 Mechanical Ventilator 85 02/10/18 10:15 71 15 79/62 (68) 96 02/10/18 10:15 15 Mechanical Ventilator 85 02/10/18 10:00 71 15 79/62 (68) 95 02/10/18 10:00 16 Mechanical Ventilator 85 02/10/18 09:58 15 Mechanical Ventilator 85 02/10/18 09:29 99 02/10/18 09:00 99.1 106 15 111/54 (73) 97 02/10/18 09:00 17 Mechanical Ventilator 85 02/10/18 08:49 106 107/50 02/10/18 08:45 104 31 85 02/10/18 08:01 86 30 99 Mechanical Ventilator 90 02/10/18 08:00 88 02/10/18 08:00 Endotracheal Tube 02/10/18 08:00 16 Mechanical Ventilator 85 02/10/18 08:00 100.3 87 15 113/51 (71) 87 02/10/18 08:00 90 02/10/18 07:40 15 Mechanical Ventilator 85 02/10/18 07:20 109 30 98 Mechanical Ventilator 90 02/10/18 07:20 109 30 90 02/10/18 07:00 16 Endotracheal Tube 90 02/10/18 07:00 87 15 108/50 (69) 97 02/10/18 06:00 109 15 114/52 (72) 97 02/10/18 06:00 15 Endotracheal Tube 90 02/10/18 05:17 89 34 90 02/10/18 05:00 17 Endotracheal Tube 90 02/10/18 05:00 91 19 118/50 (72) 98 02/10/18 04:00 90 02/10/18 04:00 98.0 87 17 113/50 (71) 97 02/10/18 04:00 17 Endotracheal Tube 90 02/10/18 04:00 Endotracheal Tube 02/10/18 04:00 88 02/10/18 03:05 87 35 90 02/10/18 03:00 88 19 112/54 (73) 94 02/10/18 03:00 20 Endotracheal Tube 90 02/10/18 02:00 20 Endotracheal Tube 90 12/21/18 02:00 86 17 115/61 (79) 99 Intake and Output 02/10/18 02/11/18 19:00 07:00 Intake Total 1670.17 ml 475.286 ml Output Total 176 ml 165 ml Balance 1494.17 ml 310.286 ml Free Water 60 ml IV Total 1110.17 ml 475.286 ml Tube Feeding 500 ml 0 ml Output Urine Total 176 ml 165 ml # Bowel Movements 1 Laboratory Tests 02/10/18 04:30: White Blood Count 13.0H, Red Blood Count 3.14L, Hemoglobin 9.9L, Hematocrit 32.7L, Mean Corpuscular Volume 104H, Mean Corpuscular Hemoglobin 31.4H, Mean Corpuscular Hemoglobin Concent 30.2L, Red Cell Distribution Width 14.6, Platelet Count 283, Mean Platelet Volume 7.4, Neutrophils (%) (Auto) 78.7H, Lymphocytes (%) (Auto) 9.5L, Monocytes (%) (Auto) 10.1H, Eosinophils (%) (Auto) 0.6, Basophils (%) (Auto) 1.1, Sodium Level 150H, Potassium Level 5.0, Chloride Level 110H, Carbon Dioxide Level 40H, Anion Gap 0L, Blood Urea Nitrogen 56H, Creatinine 1.2, Estimat Glomerular Filtration Rate , Glucose Level 104, Calcium Level 8.2L, Total Bilirubin 0.6, Aspartate Amino Transf (AST/SGOT) 18, Alanine Aminotransferase (ALT/SGPT) 18, Alkaline Phosphatase 62, Total Protein 6.3L, Albumin 1.6L, Globulin 4.7, Albumin/Globulin Ratio 0.3L 02/10/18 11:00: Arterial Blood pH 7.276L, Arterial Blood Partial Pressure CO2 88.6*H, Arterial Blood Partial Pressure O2 81.8, Arterial Blood HCO3 40.3*H, Arterial Blood Oxygen Saturation 95.1, Arterial Blood Base Excess 10.9*H, Dima Test Positive 02/10/18 11:05: White Blood Count 12.3H, Red Blood Count 3.03L, Hemoglobin 9.5L, Hematocrit 31.5L, Mean Corpuscular Volume 104H, Mean Corpuscular Hemoglobin 31.4H, Mean Corpuscular Hemoglobin Concent 30.2L, Red Cell Distribution Width 14.6, Platelet Count 277, Mean Platelet Volume 7.3, Neutrophils (%) (Auto) 82.5H, Lymphocytes (%) (Auto) 7.6L, Monocytes (%) (Auto) 8.1, Eosinophils (%) (Auto) 0.3, Basophils (%) (Auto) 1.6, Sodium Level 151H, Potassium Level 5.6H, Chloride Level 110H, Carbon Dioxide Level 41*H, Anion Gap 0L, Blood Urea Nitrogen 66H, Creatinine 1.5H, Estimat Glomerular Filtration Rate , Glucose Level 145H, Calcium Level 7.9L, Total Bilirubin 0.5, Aspartate Amino Transf (AST /SGOT) 17, Alanine Aminotransferase (ALT/SGPT) 18, Alkaline Phosphatase 62, Total Protein 6.0L, Albumin 1.5L, Globulin 4.5, Albumin/Globulin Ratio 0.3L, Lactic Acid Level 1.50, C-Reactive Protein, Quantitative 12.4H 02/10/18 17:32: Arterial Blood pH 7.089*L, Arterial Blood Partial Pressure CO2 154.1*H, Arterial Blood Partial Pressure O2 19.2*L, Arterial Blood HCO3 45.6*H, Arterial Blood Oxygen Saturation 20.7*L, Arterial Blood Base Excess 12.6*H, Dima Test Positive 02/10/18 22:00: Arterial Blood pH 7.198*L, Arterial Blood Partial Pressure CO2 115.3*H, Arterial Blood Partial Pressure O2 61.1L, Arterial Blood HCO3 43.8*H, Arterial Blood Oxygen Saturation 90.5L, Arterial Blood Base Excess 12.2*H, Dima Test Positive 02/10/18 23:00: Urine Color Yellow, Urine Appearance Cloudy, Urine pH 5, Urine Specific [place] 1.020, Urine Protein 3+H, Urine Glucose (UA) Negative, Urine Ketones Negative, Urine Blood 5+H, Urine Nitrite Negative, Urine Bilirubin Negative, Urine Urobilinogen Normal, Urine Leukocyte Esterase 2+H, Urine RBC 40-60H, Urine WBC 5 -10H, Urine Squamous Epithelial Cells Few, Urine Bacteria ManyH, Urine Coarse Granular Casts 10-15H, Urine Mucus ModerateH, Urine Yeast ManyH Height (Feet): 5 Height (Inches): 9.00 Weight (Pounds): 188 General Appearance: confused, agitated Collin Smith MD Feb 11, 2018 01:28
[2018-02-11] MEDS: Albuterol/Ipratropium 3ml neb HHN SCH ×4 (01:40→18:39)
--- NOTE | 2018-02-11 02:22 | Pulmonolgy Critical Care Note ---
Critical Care - Asmt/Plan Assessment/Plan: Pulmonary CCM Progress Note Date Patient seen: 02/10/2018 Critical Care - Asmt/Plan Problems: (1) Pulmonary fibrosis (2) Multifocal pneumonia (3) Respiratory disorder with ventilator dependence (4) Lactic acid acidosis (5) Abnormal LFTs (6) OLEG (acute kidney injury) (7) SIRS (systemic inflammatory response syndrome) (8) UTI (urinary tract infection) Assessment/Plan: ASSESSMENT: The patient is a 77-year-old male, current daily smoker with history of hypertension, back pain, lack of health maintenance, presenting with respiratory illness, bilateral pneumonia, lactic acidosis, abnormal kidney function and renal function likely OLEG, and shock liver. 01/26: Prog hypoxemia, inc WOB, tx'd to ICU, intubated 01/27: Gas exchange better, trops downtrending, LA resolved 01/30: Oxygenation worse, now on PCV, PEEP increased, code earlier today Bioethics meeting today Poor prognosis Patient now DNAR PROBLEM LIST: 1. Bilateral parenchymal infiltrates, multilobar pneumonia on top of underlying fibrotic lung disease 2. VDRF 3. Metabolic & respiratory acidosis 4. Likely underlying pulmonary fibrosis and COPD 5. NSTEMI, likely demand ischemia 6. Lactic acidosis - RESOLVED 7. Abnormal creatinine, likely acute kidney injury - IMPROVED 8. Abnormal liver function tests - IMPROVED 9. SIRS 10. History of hypertension. 11. PNEUMONIA 12. Constipation TREATMENT PLAN: Continue ventilatory support/settings reviewed, monitor gas exchange PEEP 10, adjust FiO2 to keep SaO2 > 90 and <94 ABGnegative fluid balance RTC and PRN DUOnebs Cefepime (D8), Vanco (D7) per ID, F/U Cx's Cautious TF's, monitor residuals ICU sedation: Fentanyl gtt for RASS - 2, Versed 2 mg IV q4 PRN F/U cardiology recs Monitor volumes and renal function, decreased IVF to 25, lasix 20 IV x 1 now Wound care GI recs, bowel regimen Discuss GOC, FC Px: Hep SQ, H2B D/W family, RN, RT and team CCT 45 Critical Care - Objective Vital Signs Noted Status: awake Condition: critical Lungs: rhonchi Heart: HR/BP stable Abdomen: soft, non-tender, active bowel sounds Extremities: no C/C/E Decubiti: location - sacral Blood Sugars: BS controlled Critical Care - Subjective ROS Limited/Unobtainable: Yes ICU Day: 7 Intubation Day: 7 Interval Events: FiO2 inc 70, PEEP 5 Secretions thin clear Edematous UE . LE Condition: critical IV Access: peripheral - x2 FI02: 70 Vent Support Breath Rate: 30 Vent Support Mode: AC Vent Tidal Volume: 600 Sputum Amount: Moderate PEEP: 5.0 PIP: 34 Fluids: D51/2NS @ 50 Drips: Fent off Tube Feeding Amount: 50 Subjective: IRENE ET-Tube: 7.5 ET Position: 23 Labs: Laboratory Tests Test 02/01/18 04:00 White Blood Count 13.1 K/UL (4.8-10.8) H Red Blood Count 3.41 M/UL (4.70-6.10) L Hemoglobin 10.8 G/DL (14.2-18.0) L Hematocrit 32.6 % (42.0-52.0) L Mean Corpuscular Volume 96 FL (80-99) Mean Corpuscular Hemoglobin 31.6 PG (27.0-31.0) H Mean Corpuscular Hemoglobin Concent 33.1 G/DL (32.0-36.0) Red Cell Distribution Width 13.4 % (11.6-14.8) Platelet Count 207 K/UL (150-450) Mean Platelet Volume 8.8 FL (6.5-10.1) Neutrophils (%) (Auto) % (45.0-75.0) Lymphocytes (%) (Auto) % (20.0-45.0) Monocytes (%) (Auto) % (1.0-10.0) Eosinophils (%) (Auto) % (0.0-3.0) Basophils (%) (Auto) % (0.0-2.0) Sodium Level 148 MMOL/L (136-145) H Potassium Level 3.8 MMOL/L (3.5-5.1) Chloride Level 112 MMOL/L (98-107) H Carbon Dioxide Level 31 MMOL/L (21-32) Anion Gap 5 mmol/L (5-15) Blood Urea Nitrogen 36 mg/dL (7-18) H Creatinine 0.8 MG/DL (0.55-1.30) Estimat Glomerular Filtration Rate mL/min (>60) Glucose Level 125 MG/DL (74-106) H Calcium Level 8.1 MG/DL (8.5-10.1) L Phosphorus Level 3.2 MG/DL (2.5-4.9) Magnesium Level 1.8 MG/DL (1.8-2.4) Total Bilirubin 0.7 MG/DL (0.2-1.0) Aspartate Amino Transf (AST/SGOT) 20 U/L (15-37) Alanine Aminotransferase (ALT/SGPT) 16 U/L (12-78) Alkaline Phosphatase 78 U/L (46-116) Total Protein 5.8 G/DL (6.4-8.2) L Albumin 1.4 G/DL (3.4-5.0) L Globulin 4.4 g/dL Albumin/Globulin Ratio 0.3 (1.0-2.7) L Critical Care - Objective Last 24 Hour Vital Signs Date Time Temp Pulse Resp B/P (MAP) Pulse Ox O2 Delivery O2 Flow Rate FiO2 02/11/18 01:50 107 30 98 Mechanical Ventilator 100 02/11/18 01:40 88 30 100 02/11/18 01:40 88 30 97 Mechanical Ventilator 100 02/11/18 00:30 88 31 122/60 (80) 97 02/11/18 00:00 Mechanical Ventilator 02/11/18 00:00 99.2 90 27 128/58 (81) 95 02/11/18 00:00 128/58 02/10/18 23:30 106 28 133/63 (86) 96 02/10/18 23:23 106 31 100 02/10/18 23:00 106 29 139/63 (88) 94 02/10/18 23:00 139/63 02/10/18 22:30 142/65 02/10/18 22:30 106 29 142/65 (90) 94 02/10/18 22:25 133/59 02/10/18 22:10 139/62 02/10/18 22:00 106 28 138/64 (88) 93 02/10/18 22:00 138/64 18 21:53 132/55 02/10/18 21:30 89 29 135/58 (83) 93 02/10/18 21:10 89 32 100 02/10/18 21:00 144/60 02/10/18 21:00 88 31 144/60 (88) 91 02/10/18 20:30 88 30 135/54 (81) 93 02/10/18 20:00 Mechanical Ventilator 02/10/18 20:00 100 02/10/18 20:00 132/52 02/10/18 20:00 99.5 91 30 132/51 (78) 93 18 19:56 90 02/10/18 19:30 94 18 131/54 (79) 92 02/10/18 19:14 95 30 92 Mechanical Ventilator 100 02/10/18 19:04 92 34 92 Mechanical Ventilator 02/10/18 19:03 92 30 100 02/10/18 19:00 94 22 128/48 (74) 89 02/10/18 19:00 128/48 02/10/18 18:08 87/45 02/10/18 18:00 93 22 134/55 (81) 89 02/10/18 17:00 22 22 66/35 (45) 89 02/10/18 16:49 69 30 85 02/10/18 16:00 99.8 69 22 86/43 (57) 95 02/10/18 16:00 85 02/10/18 16:00 69 02/10/18 16:00 Mechanical Ventilator 02/10/18 15:00 69 19 95/46 (62) 95 02/10/18 14:58 69 32 85 02/10/18 14:00 70 22 104/41 (62) 95 02/10/18 13:30 72 23 89/45 (60) 96 02/10/18 13:00 72 23 95/46 (62) 96 02/10/18 12:58 72 32 100 Mechanical Ventilator 80 02/10/18 12:55 69 30 85 02/10/18 12:53 70 33 99 Mechanical Ventilator 02/10/18 12:30 100.0 72 19 95/46 (62) 97 02/10/18 12:06 74 33 85 02/10/18 12:00 Endotracheal Tube 02/10/18 12:00 70 02/10/18 12:00 85 02/10/18 12:00 71 18 100/52 (68) 99 02/10/18 11:45 71 18 88/45 (59) 99 02/10/18 11:30 71 18 86/46 (59) 99 02/10/18 11:15 71 18 84/47 (59) 99 12/21/18 11:00 71 18 90/50 (63) 98 02/10/18 11:00 71 18 90/55 (67) 98 02/10/18 10:45 71 18 78/39 (52) 97 02/10/18 10:40 16 Mechanical Ventilator 85 02/10/18 10:30 70 18 88/44 (59) 97 02/10/18 10:30 16 Mechanical Ventilator 85 02/10/18 10:15 71 15 79/62 (68) 96 02/10/18 10:15 15 Mechanical Ventilator 85 02/10/18 10:00 71 15 79/62 (68) 95 02/10/18 10:00 16 Mechanical Ventilator 85 02/10/18 09:58 15 Mechanical Ventilator 85 02/10/18 09:29 99 02/10/18 09:00 99.1 106 15 111/54 (73) 97 02/10/18 09:00 17 Mechanical Ventilator 85 02/10/18 08:49 106 107/50 02/10/18 08:45 104 31 85 02/10/18 08:01 86 30 99 Mechanical Ventilator 90 02/10/18 08:00 88 02/10/18 08:00 Endotracheal Tube 02/10/18 08:00 16 Mechanical Ventilator 85 02/10/18 08:00 100.3 87 15 113/51 (71) 87 02/10/18 08:00 90 02/10/18 07:40 15 Mechanical Ventilator 85 02/10/18 07:20 109 30 98 Mechanical Ventilator 90 02/10/18 07:20 109 30 90 02/10/18 07:00 16 Endotracheal Tube 90 02/10/18 07:00 87 15 108/50 (69) 97 02/10/ 06:00 109 15 114/52 (72) 97 18 06:00 15 Endotracheal Tube 90 02/10/18 05:17 89 34 90 02/10/18 05:00 17 Endotracheal Tube 90 02/10/18 05:00 91 19 118/50 (72) 98 02/10/18 04:00 90 02/10/18 04:00 98.0 87 17 113/50 (71) 97 02/10/18 04:00 17 Endotracheal Tube 90 02/10/18 04:00 Endotracheal Tube 02/10/18 04:00 88 02/10/18 03:05 87 35 90 02/10/18 03:00 88 19 112/54 (73) 94 02/10/18 03:00 20 Endotracheal Tube 90 Micro: Microbiology Date/Time Source Procedure Growth Status 02/09/18 17:00 Sputum Gram Stain - Final Resulted 02/09/18 17:00 Sputum Sputum Culture Pending Resulted Critical Care - Subjective ROS Limited/Unobtainable: Yes Condition: critical IV Access: PICC EKG Rhythm: Sinus Rhythm FI02: 100 Vent Support Breath Rate: 30 Vent Support Mode: AC Sputum Amount: Small PEEP: 15.0 PIP: 41 Tube Feeding Amount: 0 I&O: Intake and Output 02/10/18 02/11/18 19:00 07:00 Intake Total 1670.17 ml 475.286 ml Output Total 176 ml 165 ml Balance 1494.17 ml 310.286 ml Free Water 60 ml IV Total 1110.17 ml 475.286 ml Tube Feeding 500 ml 0 ml Output Urine Total 176 ml 165 ml # Bowel Movements 1 ET-Tube: 7.5 ET Position: 23 Tyrel Gonzalez MD Feb 11, 2018 02:22
[2018-02-11] MEDS: DOPamine 400mg/250ml 250 ML IV SCH ×2 (03:28→13:01)
[2018-02-11 05:52] LABS: BASOPHILS % (AUTO) 1.2 % (0.0-2.0); EOSINOPHILS % (AUTO) 0.1 % (0.0-3.0); HEMATOCRIT 31.8 % (42.0-52.0); HEMOGLOBIN 9.6 G/DL (14.2-18.0); LYMPHOCYTES % (AUTO) 7.2 % (20.0-45.0); MEAN CORPUSCULAR VOLUME 103 FL (80-99); MONOCYTES % (AUTO) 8.2 % (1.0-10.0); NEUTROPHILS % (AUTO) 83.2 % (45.0-75.0); PLATELET COUNT 260 K/UL (150-450); RED BLOOD COUNT 3.09 M/UL (4.70-6.10); RED CELL DISTRIBUTION WIDTH 14.3 % (11.6-14.8); WHITE BLOOD COUNT 12.2 K/UL (4.8-10.8)
[2018-02-11 06:50] LABS: ALANINE AMINOTRANSFERASE 21 U/L (12-78); ALBUMIN 1.7 G/DL (3.4-5.0); ALBUMIN/GLOBULIN RATIO 0.4 (1.0-2.7); ALKALINE PHOSPHATASE 59 U/L (46-116); ANION GAP 2 mmol/L (5-15); ASPARTATE AMINO TRANSFERASE 25 U/L (15-37); BILIRUBIN,TOTAL 0.6 MG/DL (0.2-1.0); BLOOD UREA NITROGEN 82 mg/dL (7-18); CALCIUM 7.8 MG/DL (8.5-10.1); CARBON DIOXIDE 40 MMOL/L (21-32); CHLORIDE 106 MMOL/L (98-107); CREATININE 2.3 MG/DL (0.55-1.30); GAMMA GLUTAMYL TRANSPEPTIDASE 5 U/L (5-85); PHOSPHORUS 4.8 MG/DL (2.5-4.9); POTASSIUM 5.5 MMOL/L (3.5-5.1); SODIUM 148 MMOL/L (136-145)
[2018-02-11] MEDS: Heparin 5000 units/ml inj SUBQ SCH ×2 (08:34→21:56)
[2018-02-11] MEDS: Sodium Bicarbonate 150 ML in D5W 1000ml 1,000 ML IV SCH ×2 (08:51→19:31)
--- NOTE | 2018-02-11 09:43 | General Progress Note ---
Assessment/Plan Assessment/Plan hepatitis panel reviewed >> active Hep A infection anemia work up reviewed >> folate and iron deficiency recent KUB >> no acute findings Dysphagia NGTF on hold patient DNR now OB stool r/o GI bleed uncollected monitor H&H, prn transfusions constipation - bowel regime >> lactulose TID ppi folate fu labs poor prognosis Subjective ROS Limited/Unobtainable: No Allergies: Coded Allergies: No Known Allergies (Unverified , 01/24/18) Objective Last 24 Hour Vital Signs Date Time Temp Pulse Resp B/P (MAP) Pulse Ox O2 Delivery O2 Flow Rate FiO2 02/11/18 09:00 86 20 125/53 (77) 99 02/11/18 09:00 107/49 02/11/18 08:53 107 31 100 02/11/18 08:45 85 20 128/54 (78) 99 02/11/18 08:34 95 02/11/18 08:30 107 26 125/57 (79) 100 02/11/18 08:00 Mechanical Ventilator 02/11/18 08:00 100 02/11/18 08:00 121/45 02/11/18 08:00 98.6 85 18 121/45 (70) 99 02/11/18 07:04 105 31 100 Mechanical Ventilator 100 02/11/18 07:02 105 35 100 02/11/18 07:00 112/54 02/11/18 07:00 104 18 112/54 (73) 100 02/11/18 06:57 101 30 100 Mechanical Ventilator 100 02/11/18 06:30 84 30 115/54 (74) 99 02/11/18 06:30 84 25 96/83 (87) 100 02/11/18 06:00 102 30 131/54 (79) 100 02/11/18 06:00 85 30 96/83 (87) 99 02/11/18 06:00 131/54 02/11/18 05:30 102 30 138/62 (87) 100 02/11/18 05:30 102 30 138/62 (87) 99 02/11/18 05:00 101 30 125/56 (79) 99 02/11/18 05:00 102 31 100 02/11/18 05:00 125/58 02/11/18 04:30 102 31 132/64 (86) 96 02/11/18 04:00 99.1 83 30 122/54 (76) 97 02/11/18 04:00 Mechanical Ventilator 02/11/18 04:00 122/54 02/11/18 04:00 100 02/11/18 04:00 90 02/11/18 03:30 85 30 116/49 (71) 99 02/11/18 03:28 128/48 02/11/18 03:07 104 30 100 02/11/18 03:00 104 31 117/54 (75) 100 02/11/18 03:00 117/54 02/11/18 02:30 85 31 115/52 (73) 99 02/11/18 02:00 105 30 131/52 (78) 98 02/11/18 02:00 131/52 02/11/18 01:50 107 30 98 Mechanical Ventilator 100 02/11/18 01:40 88 30 100 02/11/18 01:40 88 30 97 Mechanical Ventilator 100 02/11/18 01:30 87 28 132/52 (78) 96 02/11/18 01:00 126/54 02/11/18 01:00 88 31 126/54 (78) 97 02/11/18 00:30 88 31 122/60 (80) 97 02/11/18 00:00 86 02/11/18 00:00 100 02/11/18 00:00 Mechanical Ventilator 02/11/18 00:00 99.2 90 27 128/58 (81) 95 02/11/18 00:00 128/58 02/10/18 23:30 106 28 133/63 (86) 96 02/10/18 23:23 106 31 100 02/10/18 23:00 106 29 139/63 (88) 94 18 23:00 139/63 18 22:30 142/65 18 22:30 106 29 142/65 (90) 94 18 22:25 133/59 18 22:10 139/62 02/10/18 22:00 106 28 138/64 (88) 93 02/10/18 22:00 138/64 18 21:53 132/55 02/10/18 21:30 89 29 135/58 (83) 93 02/10/18 21:10 89 32 100 02/10/18 21:00 144/60 02/10/18 21:00 88 31 144/60 (88) 91 02/10/18 20:30 88 30 135/54 (81) 93 02/10/18 20:00 Mechanical Ventilator 02/10/18 20:00 100 18 20:00 132/52 02/10/18 20:00 99.5 91 30 132/51 (78) 93 02/10/18 19:56 90 02/10/18 19:30 94 18 131/54 (79) 92 02/10/18 19:14 95 30 92 Mechanical Ventilator 100 02/10/18 19:04 92 34 92 Mechanical Ventilator 02/10/18 19:03 92 30 100 02/10/18 19:00 94 22 128/48 (74) 89 02/10/18 19:00 128/48 02/10/18 18:08 87/45 02/10/18 18:00 93 22 134/55 (81) 89 02/10/18 17:00 22 22 66/35 (45) 89 02/10/18 16:49 69 30 85 02/10/18 16:00 99.8 69 22 86/43 (57) 95 02/10/18 16:00 85 02/10/18 16:00 69 02/10/18 16:00 Mechanical Ventilator 02/10/18 15:00 69 19 95/46 (62) 95 02/10/18 14:58 69 32 85 02/10/18 14:00 70 22 104/41 (62) 95 02/10/18 13:30 72 23 89/45 (60) 96 02/10/18 13:00 72 23 95/46 (62) 96 02/10/18 12:58 72 32 100 Mechanical Ventilator 80 02/10/18 12:55 69 30 85 02/10/18 12:53 70 33 99 Mechanical Ventilator 02/10/18 12:30 100.0 72 19 95/46 (62) 97 02/10/18 12:06 74 33 85 02/10/18 12:00 Endotracheal Tube 02/10/18 12:00 70 02/10/18 12:00 85 02/10/18 12:00 71 18 100/52 (68) 99 02/10/18 11:45 71 18 88/45 (59) 99 02/10/18 11:30 71 18 86/46 (59) 99 02/10/18 11:15 71 18 84/47 (59) 99 02/10/18 11:00 71 18 90/50 (63) 98 02/10/18 11:00 71 18 90/55 (67) 98 02/10/18 10:45 71 18 78/39 (52) 97 02/10/18 10:40 16 Mechanical Ventilator 85 02/10/18 10:30 70 18 88/44 (59) 97 02/10/18 10:30 16 Mechanical Ventilator 85 02/10/18 10:15 71 15 79/62 (68) 96 02/10/18 10:15 15 Mechanical Ventilator 85 02/10/18 10:00 71 15 79/62 (68) 95 02/10/18 10:00 16 Mechanical Ventilator 85 02/10/18 09:58 15 Mechanical Ventilator 85 Intake and Output 02/10/18 02/11/18 18:59 06:59 Intake Total 1742.17 ml 1381.320 ml Output Total 216 ml 440 ml Balance 1526.17 ml 941.320 ml Free Water 110 ml IV Total 1082.17 ml 1381.320 ml Tube Feeding 550 ml 0 ml Output Urine Total 216 ml 440 ml # Bowel Movements 1 Laboratory Tests 02/10/18 11:00: Arterial Blood pH 7.276L, Arterial Blood Partial Pressure CO2 88.6*H, Arterial Blood Partial Pressure O2 81.8, Arterial Blood HCO3 40.3*H, Arterial Blood Oxygen Saturation 95.1, Arterial Blood Base Excess 10.9*H, Dima Test Positive 02/10/18 11:05: White Blood Count 12.3H, Red Blood Count 3.03L, Hemoglobin 9.5L, Hematocrit 31.5L, Mean Corpuscular Volume 104H, Mean Corpuscular Hemoglobin 31.4H, Mean Corpuscular Hemoglobin Concent 30.2L, Red Cell Distribution Width 14.6, Platelet Count 277, Mean Platelet Volume 7.3, Neutrophils (%) (Auto) 82.5H, Lymphocytes (%) (Auto) 7.6L, Monocytes (%) (Auto) 8.1, Eosinophils (%) (Auto) 0.3, Basophils (%) (Auto) 1.6, Sodium Level 151H, Potassium Level 5.6H, Chloride Level 110H, Carbon Dioxide Level 41*H, Anion Gap 0L, Blood Urea Nitrogen 66H, Creatinine 1.5H, Estimat Glomerular Filtration Rate , Glucose Level 145H, Lactic Acid Level 1.50, Calcium Level 7.9L, Total Bilirubin 0.5, Aspartate Amino Transf (AST/SGOT) 17, Alanine Aminotransferase (ALT/SGPT) 18, Alkaline Phosphatase 62, C-Reactive Protein, Quantitative 12.4H, Total Protein 6.0L, Albumin 1.5L, Globulin 4.5, Albumin/Globulin Ratio 0.3L 02/10/18 17:32: Arterial Blood pH 7.089*L, Arterial Blood Partial Pressure CO2 154.1*H, Arterial Blood Partial Pressure O2 19.2*L, Arterial Blood HCO3 45.6*H, Arterial Blood Oxygen Saturation 20.7*L, Arterial Blood Base Excess 12.6*H, Dima Test Positive 02/10/18 22:00: Arterial Blood pH 7.198*L, Arterial Blood Partial Pressure CO2 115.3*H, Arterial Blood Partial Pressure O2 61.1L, Arterial Blood HCO3 43.8*H, Arterial Blood Oxygen Saturation 90.5L, Arterial Blood Base Excess 12.2*H, Dima Test Positive 02/10/18 23:00: Urine Color Yellow, Urine Appearance Cloudy, Urine pH 5, Urine Specific [place] 1.020, Urine Protein 3+H, Urine Glucose (UA) Negative, Urine Ketones Negative, Urine Blood 5+H, Urine Nitrite Negative, Urine Bilirubin Negative, Urine Urobilinogen Normal, Urine Leukocyte Esterase 2+H, Urine RBC 40-60H, Urine WBC 5 -10H, Urine Squamous Epithelial Cells Few, Urine Bacteria ManyH, Urine Coarse Granular Casts 10-15H, Urine Mucus ModerateH, Urine Yeast ManyH 02/11/18 05:05: White Blood Count 12.2H, Red Blood Count 3.09L, Hemoglobin 9.6L, Hematocrit 31.8L, Mean Corpuscular Volume 103H, Mean Corpuscular Hemoglobin 31.2H, Mean Corpuscular Hemoglobin Concent 30.3L, Red Cell Distribution Width 14.3, Platelet Count 260, Mean Platelet Volume 7.0, Neutrophils (%) (Auto) 83.2H, Lymphocytes (%) (Auto) 7.2L, Monocytes (%) (Auto) 8.2, Eosinophils (%) (Auto) 0.1, Basophils (%) (Auto) 1.2, Sodium Level 148H, Potassium Level 5.5H, Chloride Level 106, Carbon Dioxide Level 40H, Anion Gap 2L, Blood Urea Nitrogen 82H, Creatinine 2.3#H, Estimat Glomerular Filtration Rate , Glucose Level 154H, Uric Acid 7.0, Calcium Level 7.8L, Phosphorus Level 4.8, Magnesium Level 2.6H, Total Bilirubin 0.6, Gamma Glutamyl Transpeptidase 5, Aspartate Amino Transf ( AST/SGOT) 25, Alanine Aminotransferase (ALT/SGPT) 21, Alkaline Phosphatase 59, Troponin I 0.149H, Pro-B-Type Natriuretic Peptide 73039L, Total Protein 6.1L, Albumin 1.7L, Globulin 4.4, Albumin/Globulin Ratio 0.4L 02/11/18 08:03: Arterial Blood pH 7.211*L, Arterial Blood Partial Pressure CO2 103.0*H, Arterial Blood Partial Pressure O2 97.8, Arterial Blood HCO3 40.4*H, Arterial Blood Oxygen Saturation 96.5, Arterial Blood Base Excess 9.6*H, Dima Test Positive Height (Feet): 5 Height (Inches): 9.00 Weight (Pounds): 165 General Appearance: lethargic EENT: normal ENT inspection Neck: supple Cardiovascular: tachycardia Respiratory/Chest: decreased breath sounds Abdomen: normal bowel sounds, non tender, soft Extremities: non-tender Peter Salgado MD Feb 11, 2018 09:43
--- NOTE | 2018-02-11 10:42 | Infectious Diseases Prog Note ---
Assessment/Plan Assessment/Plan antibiotics : none A 1. gram negative pneumonia 2. shock 3. respiratory failure 4. hepatitis A 5. renal failure 6. pulmonary fibrosis 7. pulmonary hypertension P 1. start zosyn 2. will follow up cultures Subjective ROS Limited/Unobtainable: Yes Allergies: Coded Allergies: No Known Allergies (Unverified , 01/24/18) Objective Vital Signs Last 24 Hour Vital Signs Date Time Temp Pulse Resp B/P (MAP) Pulse Ox O2 Delivery O2 Flow Rate FiO2 02/11/18 10:15 85 22 120/51 (74) 98 02/11/18 10:00 83 21 119/52 (74) 98 02/11/18 10:00 120/51 02/11/18 09:45 106 20 118/44 (68) 99 02/11/18 09:30 86 21 118/48 (71) 98 02/11/18 09:15 85 21 107/49 (68) 99 02/11/18 09:00 86 20 125/53 (77) 99 02/11/18 09:00 107/49 02/11/18 08:53 107 31 100 02/11/18 08:45 85 20 128/54 (78) 99 02/11/18 08:34 95 02/11/18 08:30 107 26 125/57 (79) 100 02/11/18 08:00 Mechanical Ventilator 02/11/18 08:00 100 02/11/18 08:00 121/45 02/11/18 08:00 98.6 85 18 121/45 (70) 99 02/11/18 07:04 105 31 100 Mechanical Ventilator 100 02/11/18 07:02 105 35 100 02/11/18 07:00 112/54 02/11/18 07:00 104 18 112/54 (73) 100 02/11/18 06:57 101 30 100 Mechanical Ventilator 100 02/11/18 06:30 84 30 115/54 (74) 99 02/11/18 06:30 84 25 96/83 (87) 100 02/11/18 06:00 102 30 131/54 (79) 100 02/11/18 06:00 85 30 96/83 (87) 99 02/11/18 06:00 131/54 02/11/18 05:30 102 30 138/62 (87) 100 02/11/18 05:30 102 30 138/62 (87) 99 02/11/18 05:00 101 30 125/56 (79) 99 02/11/18 05:00 102 31 100 02/11/18 05:00 125/58 02/11/18 04:30 102 31 132/64 (86) 96 02/11/18 04:00 99.1 83 30 122/54 (76) 97 02/11/18 04:00 Mechanical Ventilator 02/11/18 04:00 122/54 02/11/18 04:00 100 02/11/18 04:00 90 02/11/18 03:30 85 30 116/49 (71) 99 02/11/18 03:28 128/48 02/11/18 03:07 104 30 100 02/11/18 03:00 104 31 117/54 (75) 100 02/11/18 03:00 117/54 02/11/18 02:30 85 31 115/52 (73) 99 02/11/18 02:00 105 30 131/52 (78) 98 02/11/18 02:00 131/52 02/11/18 01:50 107 30 98 Mechanical Ventilator 100 02/11/18 01:40 88 30 100 02/11/18 01:40 88 30 97 Mechanical Ventilator 100 02/11/18 01:30 87 28 132/52 (78) 96 02/11/18 01:00 126/54 02/11/18 01:00 88 31 126/54 (78) 97 02/11/18 00:30 88 31 122/60 (80) 97 02/11/18 00:00 86 02/11/18 00:00 100 02/11/18 00:00 Mechanical Ventilator 02/11/18 00:00 99.2 90 27 128/58 (81) 95 02/11/18 00:00 128/58 02/10/18 23:30 106 28 133/63 (86) 96 02/10/18 23:23 106 31 100 02/10/18 23:00 106 29 139/63 (88) 94 18 23:00 139/63 18 22:30 142/65 18 22:30 106 29 142/65 (90) 94 18 22:25 133/59 21/18 22:10 139/62 12/21/18 22:00 106 28 138/64 (88) 93 18 22:00 138/64 02/10/18 21:53 132/55 02/10/18 21:30 89 29 135/58 (83) 93 02/10/18 21:10 89 32 100 02/10/18 21:00 144/60 02/10/18 21:00 88 31 144/60 (88) 91 02/10/18 20:30 88 30 135/54 (81) 93 02/10/18 20:00 Mechanical Ventilator 02/10/18 20:00 100 02/10/18 20:00 132/52 02/10/18 20:00 99.5 91 30 132/51 (78) 93 02/10/18 19:56 90 02/10/18 19:30 94 18 131/54 (79) 92 02/10/18 19:14 95 30 92 Mechanical Ventilator 100 02/10/18 19:04 92 34 92 Mechanical Ventilator 02/10/18 19:03 92 30 100 02/10/18 19:00 94 22 128/48 (74) 89 02/10/18 19:00 128/48 02/10/18 18:08 87/45 02/10/18 18:00 93 22 134/55 (81) 89 02/10/18 17:00 22 22 66/35 (45) 89 02/10/18 16:49 69 30 85 02/10/18 16:00 99.8 69 22 86/43 (57) 95 02/10/18 16:00 85 02/10/18 16:00 69 02/10/18 16:00 Mechanical Ventilator 02/10/18 15:00 69 19 95/46 (62) 95 02/10/18 14:58 69 32 85 02/10/18 14:00 70 22 104/41 (62) 95 02/10/18 13:30 72 23 89/45 (60) 96 02/10/18 13:00 72 23 95/46 (62) 96 02/10/18 12:58 72 32 100 Mechanical Ventilator 80 02/10/18 12:55 69 30 85 02/10/18 12:53 70 33 99 Mechanical Ventilator 02/10/18 12:30 100.0 72 19 95/46 (62) 97 02/10/18 12:06 74 33 85 02/10/18 12:00 Endotracheal Tube 02/10/18 12:00 70 02/10/18 12:00 85 02/10/18 12:00 71 18 100/52 (68) 99 02/10/18 11:45 71 18 88/45 (59) 99 02/10/18 11:30 71 18 86/46 (59) 99 02/10/18 11:15 71 18 84/47 (59) 99 02/10/18 11:00 71 18 90/50 (63) 98 02/10/18 11:00 71 18 90/55 (67) 98 02/10/18 10:45 71 18 78/39 (52) 97 02/10/18 10:40 16 Mechanical Ventilator 85 Height (Feet): 5 Height (Inches): 9.00 Weight (Pounds): 165 HEENT: other - intubated Respiratory/Chest: lungs clear Cardiovascular: normal rate, regular rhythm, no gallop/murmur Abdomen: soft, non tender Extremities: other - + edema Microbiology Date/Time Source Procedure Growth Status 02/09/18 17:00 Sputum Gram Stain - Final Resulted 02/09/18 17:00 Sputum Culture - Preliminary Gram Negative Major Resulted Laboratory Tests Test 02/10/18 11:00 02/10/18 11:05 02/10/18 17:32 02/10/18 22:00 Arterial Blood pH 7.276 (7.350-7.450) 7.089 (7.350-7.450) 7.198 (7.350-7.450) Arterial Blood Partial Pressure CO2 88.6 mmHg (35.0-45.0) *H 154.1 mmHg (35.0-45.0) *H 115.3 mmHg (35.0-45.0) *H Arterial Blood Partial Pressure O2 81.8 mmHg (75.0-100.0) 19.2 mmHg (75.0-100.0) 61.1 mmHg (75.0-100.0) L Arterial Blood HCO3 40.3 mmol/L (22.0-26.0) *H 45.6 mmol/L (22.0-26.0) *H 43.8 mmol/L (22.0-26.0) *H Arterial Blood Oxygen Saturation 95.1 % (95-100) 20.7 % (95-100) *L 90.5 % (95-100) L Arterial Blood Base Excess 10.9 (-2-2) *H 12.6 (-2-2) *H 12.2 (-2-2) *H Dima Test Positive Positive Positive White Blood Count 12.3 K/UL (4.8-10.8) H Red Blood Count 3.03 M/UL (4.70-6.10) L Hemoglobin 9.5 G/DL (14.2-18.0) L Hematocrit 31.5 % (42.0-52.0) L Mean Corpuscular Volume 104 FL (80-99) H Mean Corpuscular Hemoglobin 31.4 PG (27.0-31.0) H Mean Corpuscular Hemoglobin Concent 30.2 G/DL (32.0-36.0) L Red Cell Distribution Width 14.6 % (11.6-14.8) Platelet Count 277 K/UL (150-450) Mean Platelet Volume 7.3 FL (6.5-10.1) Neutrophils (%) (Auto) 82.5 % (45.0-75.0) H Lymphocytes (%) (Auto) 7.6 % (20.0-45.0) L Monocytes (%) (Auto) 8.1 % (1.0-10.0) Eosinophils (%) (Auto) 0.3 % (0.0-3.0) Basophils (%) (Auto) 1.6 % (0.0-2.0) Sodium Level 151 MMOL/L (136-145) H Potassium Level 5.6 MMOL/L (3.5-5.1) H Chloride Level 110 MMOL/L (98-107) H Carbon Dioxide Level 41 MMOL/L (21-32) *H Anion Gap 0 mmol/L (5-15) L Blood Urea Nitrogen 66 mg/dL (7-18) H Creatinine 1.5 MG/DL (0.55-1.30) H Estimat Glomerular Filtration Rate mL/min (>60) Glucose Level 145 MG/DL (74-106) H Lactic Acid Level 1.50 mmol/L (0.4-2.0) Calcium Level 7.9 MG/DL (8.5-10.1) L Total Bilirubin 0.5 MG/DL (0.2-1.0) Aspartate Amino Transf (AST/SGOT) 17 U/L (15-37) Alanine Aminotransferase (ALT/SGPT) 18 U/L (12-78) Alkaline Phosphatase 62 U/L (46-116) C-Reactive Protein, Quantitative 12.4 mg/dL (0.00-0.90) H Total Protein 6.0 G/DL (6.4-8.2) L Albumin 1.5 G/DL (3.4-5.0) L Globulin 4.5 g/dL Albumin/Globulin Ratio 0.3 (1.0-2.7) L Test 02/10/18 23:00 02/11/18 05:05 02/11/18 08:03 Urine Color Yellow Urine Appearance Cloudy Urine pH 5 (4.5-8.0) Urine Specific [place] 1.020 (1.005-1.035) Urine Protein 3+ (NEGATIVE) H Urine Glucose (UA) Negative (NEGATIVE) Urine Ketones Negative (NEGATIVE) Urine Blood 5+ (NEGATIVE) H Urine Nitrite Negative (NEGATIVE) Urine Bilirubin Negative (NEGATIVE) Urine Urobilinogen Normal MG/DL (0.0-1.0) Urine Leukocyte Esterase 2+ (NEGATIVE) H Urine RBC 40-60 /HPF (0 - 0) H Urine WBC 5-10 /HPF (0 - 0) H Urine Squamous Epithelial Cells Few /LPF (NONE/OCC) Urine Bacteria Many /HPF (NONE) H Urine Coarse Granular Casts 10-15 /LPF (NONE) H Urine Mucus Moderate /LPF (NONE/OCC) H Urine Yeast Many /HPF (NONE) H White Blood Count 12.2 K/UL (4.8-10.8) H Red Blood Count 3.09 M/UL (4.70-6.10) L Hemoglobin 9.6 G/DL (14.2-18.0) L Hematocrit 31.8 % (42.0-52.0) L Mean Corpuscular Volume 103 FL (80-99) H Mean Corpuscular Hemoglobin 31.2 PG (27.0-31.0) H Mean Corpuscular Hemoglobin Concent 30.3 G/DL (32.0-36.0) L Red Cell Distribution Width 14.3 % (11.6-14.8) Platelet Count 260 K/UL (150-450) Mean Platelet Volume 7.0 FL (6.5-10.1) Neutrophils (%) (Auto) 83.2 % (45.0-75.0) H Lymphocytes (%) (Auto) 7.2 % (20.0-45.0) L Monocytes (%) (Auto) 8.2 % (1.0-10.0) Eosinophils (%) (Auto) 0.1 % (0.0-3.0) Basophils (%) (Auto) 1.2 % (0.0-2.0) Sodium Level 148 MMOL/L (136-145) H Potassium Level 5.5 MMOL/L (3.5-5.1) H Chloride Level 106 MMOL/L (98-107) Carbon Dioxide Level 40 MMOL/L (21-32) H Anion Gap 2 mmol/L (5-15) L Blood Urea Nitrogen 82 mg/dL (7-18) H Creatinine 2.3 MG/DL (0.55-1.30) #H Estimat Glomerular Filtration Rate mL/min (>60) Glucose Level 154 MG/DL (74-106) H Uric Acid 7.0 MG/DL (2.6-7.2) Calcium Level 7.8 MG/DL (8.5-10.1) L Phosphorus Level 4.8 MG/DL (2.5-4.9) Magnesium Level 2.6 MG/DL (1.8-2.4) H Total Bilirubin 0.6 MG/DL (0.2-1.0) Gamma Glutamyl Transpeptidase 5 U/L (5-85) Aspartate Amino Transf (AST/SGOT) 25 U/L (15-37) Alanine Aminotransferase (ALT/SGPT) 21 U/L (12-78) Alkaline Phosphatase 59 U/L (46-116) Troponin I 0.149 ng/mL (0.000-0.056) Pro-B-Type Natriuretic Peptide 67470 pg/mL (0-125) H Total Protein 6.1 G/DL (6.4-8.2) L Albumin 1.7 G/DL (3.4-5.0) L Globulin 4.4 g/dL Albumin/Globulin Ratio 0.4 (1.0-2.7) L Arterial Blood pH 7.211 (7.350-7.450) Arterial Blood Partial Pressure CO2 103.0 mmHg (35.0-45.0) *H Arterial Blood Partial Pressure O2 97.8 mmHg (75.0-100.0) Arterial Blood HCO3 40.4 mmol/L (22.0-26.0) *H Arterial Blood Oxygen Saturation 96.5 % (95-100) Arterial Blood Base Excess 9.6 (-2-2) *H Dima Test Positive Current Medications Medications (Trade) Dose Ordered Sig/Chaka Route PRN Reason Start Time Stop Time Status Last Admin Dose Admin Acetaminophen (Tylenol) 650 mg PRN PRN RECTAL Prn Headache/Temp > 101 01/26/18 22:15 02/23/18 22:14 01/28/18 20:35 Albuterol/ Ipratropium (Albuterol/ Ipratropium) 3 ml Q6HRT HHN 02/08/18 01:00 02/13/18 00:59 02/11/18 07:06 Chlorhexidine Gluconate (Cathi-Hex 2%) 1 applic DAILY@2000 TOPIC 02/10/18 20:00 03/12/18 19:59 02/10/18 20:09 Dopamine HCl/ Dextrose 250 ml @ 0 mls/hr Q24H IV 02/10/18 18:00 03/12/18 17:59 02/11/18 03:28 Famotidine (Pepcid I.v.) 20 mg Q12HR IVP 01/26/18 10:00 02/24/18 09:59 02/11/18 08:32 Fentanyl Citrate 1000 mcg/Sodium Chloride 100 ml @ 0 mls/hr Q24H IV 02/09/18 17:45 02/16/18 17:44 02/10/18 09:58 Haloperidol Lactate (Haldol) 5 mg Q6H PRN IM Agitation 01/27/18 13:00 02/26/18 12:59 02/06/18 11:47 Heparin Sodium (Porcine) (Heparin 5000 units/ml) 5,000 units EVERY 12 HOURS SUBQ 01/27/18 21:00 02/26/18 20:59 02/11/18 08:34 Heparin Sodium/ Sodium Chloride (Heparin 2000 units/Ns 1000ml premix) 2,000 unit ONCE PRN INJ FOR PICC PLACEMENT 02/10/18 11:00 02/11/18 23:59 Lactulose (Cephulac) 20 gm DAILYPRN PRN NG Constipation 02/03/18 13:15 03/04/18 12:59 02/07/18 17:49 Lidocaine HCl (Xylocaine 1% 30ml) 30 ml ONCE PRN INJ FOR PICC PLACEMENT 02/10/18 11:00 02/11/18 23:59 Magnesium Hydroxide (Mom) 30 ml DAILYPRN PRN ORAL Constipation 01/30/18 14:15 03/01/18 14:14 02/02/18 07:00 Midazolam HCl (Versed 2mg/2ml vial) 2 mg EVERY 4 HOURS PRN IVP For Anxiety 01/26/18 10:00 02/25/18 09:59 02/02/18 02:16 Norepinephrine Bitartrate 4 mg/ Dextrose 250 ml @ 0 mls/hr Q24H IV 02/10/18 18:00 03/12/18 17:59 Olanzapine (ZyPREXA) 2.5 mg BEDTIME PRN ORAL agitation 01/26/18 21:00 02/25/18 20:59 Ondansetron HCl (Zofran) 4 mg Q6H PRN IVP Nausea & Vomiting 01/26/18 22:15 02/25/18 22:14 Polyethylene Glycol (Miralax) 17 gm BEDTIME NG 01/31/18 21:00 03/02/18 20:59 02/09/18 21:57 Sodium Bicarbonate 150 ml/Dextrose 1,150 ml @ 100 mls/hr [id number] IV 02/10/18 22:30 03/12/18 22:29 02/11/18 08:51 Nhan Miguel MD Feb 11, 2018 10:42
[2018-02-11] MEDS: Piperacillin/Tazobactam 3.375 GM in D5W 110 ML IVPB SCH ×3 (12:28→21:55)
--- NOTE | 2018-02-11 12:32 | Cardiology Progress Note ---
Assessment/Plan Status: stable Assessment/Plan Assessment/Plan Assessment/Plan 1. Type 2 NSTEMI. The levels are flat. No CP Due to the respiratory failure and azotemia. Echo normal EF 2. Respiratory failure, due to PNA and COPD and CHF. The patient is on the ventilator. Antibiotic per ID Failed weaning. Tracheostomy pending if family and Dr Merino agrees 3. Hypokalemia, corrected 4. Azotemia and hypernatremia. On D5 1/[address] Mclaughlin Na still 149 5. Elevated bilirubin of 2.3. Down to 1.1 Subjective Cardiovascular: Reports: no symptoms Respiratory: Reports: no symptoms Gastrointestinal/Abdominal: Reports: no symptoms Genitourinary: Reports: no symptoms Subjective [employer] Dopamine drip decreased down to 8 mcg/kg/min. BP 113/51. On ACPC PIP 25, RR 30, itime 0.8, Fio2 100%, PEEP +15. Pt intubated. Pt obtunded Objective Last 24 Hour Vital Signs Date Time Temp Pulse Resp B/P (MAP) Pulse Ox O2 Delivery O2 Flow Rate FiO2 02/11/18 12:00 100 02/11/18 12:00 81 21 107/49 (68) 99 02/11/18 12:00 107/49 02/11/18 12:00 Mechanical Ventilator 02/11/18 11:57 90 02/11/18 11:45 83 16 105/58 (74) 98 02/11/18 11:30 88 25 120/55 (76) 100 02/11/18 11:00 88 24 115/49 (71) 98 02/11/18 11:00 115/49 02/11/18 10:57 106 31 100 02/11/18 10:45 83 20 113/51 (71) 99 02/11/18 10:30 83 20 107/51 (69) 98 02/11/18 10:15 85 22 120/51 (74) 98 02/11/18 10:00 83 21 119/52 (74) 98 02/11/18 10:00 120/51 02/11/18 09:45 106 20 118/44 (68) 99 02/11/18 09:30 86 21 118/48 (71) 98 02/11/18 09:15 85 21 107/49 (68) 99 02/11/18 09:00 86 20 125/53 (77) 99 02/11/18 09:00 107/49 02/11/18 08:53 107 31 100 02/11/18 08:45 85 20 128/54 (78) 99 02/11/18 08:34 95 02/11/18 08:30 107 26 125/57 (79) 100 02/11/18 08:00 Mechanical Ventilator 02/11/18 08:00 100 02/11/18 08:00 121/45 02/11/18 08:00 98.6 85 18 121/45 (70) 99 02/11/18 07:38 84 02/11/18 07:04 105 31 100 Mechanical Ventilator 100 02/11/18 07:02 105 35 100 02/11/18 07:00 112/54 02/11/18 07:00 104 18 112/54 (73) 100 02/11/18 06:57 101 30 100 Mechanical Ventilator 100 02/11/18 06:30 84 30 115/54 (74) 99 02/11/18 06:30 84 25 96/83 (87) 100 02/11/18 06:00 102 30 131/54 (79) 100 02/11/18 06:00 85 30 96/83 (87) 99 02/11/18 06:00 131/54 02/11/18 05:30 102 30 138/62 (87) 100 02/11/18 05:30 102 30 138/62 (87) 99 02/11/18 05:00 101 30 125/56 (79) 99 02/11/18 05:00 102 31 100 02/11/18 05:00 125/58 02/11/18 04:30 102 31 132/64 (86) 96 02/11/18 04:00 99.1 83 30 122/54 (76) 97 02/11/18 04:00 Mechanical Ventilator 02/11/18 04:00 122/54 02/11/18 04:00 100 02/11/18 04:00 90 02/11/18 03:30 85 30 116/49 (71) 99 02/11/18 03:28 128/48 02/11/18 03:07 104 30 100 02/11/18 03:00 104 31 117/54 (75) 100 02/11/18 03:00 117/54 02/11/18 02:30 85 31 115/52 (73) 99 02/11/18 02:00 105 30 131/52 (78) 98 02/11/18 02:00 131/52 02/11/18 01:50 107 30 98 Mechanical Ventilator 100 02/11/18 01:40 88 30 100 02/11/18 01:40 88 30 97 Mechanical Ventilator 100 02/11/18 01:30 87 28 132/52 (78) 96 02/11/18 01:00 126/54 02/11/18 01:00 88 31 126/54 (78) 97 02/11/18 00:30 88 31 122/60 (80) 97 02/11/18 00:00 86 02/11/18 00:00 100 02/11/18 00:00 Mechanical Ventilator 02/11/18 00:00 99.2 90 27 128/58 (81) 95 02/11/18 00:00 128/58 02/10/18 23:30 106 28 133/63 (86) 96 02/10/18 23:23 106 31 100 02/10/18 23:00 106 29 139/63 (88) 94 02/10/18 23:00 139/63 18 22:30 142/65 02/10/18 22:30 106 29 142/65 (90) 94 02/10/18 22:25 133/59 02/10/18 22:10 139/62 02/10/18 22:00 106 28 138/64 (88) 93 18 22:00 138/64 02/10/18 21:53 132/55 02/10/18 21:30 89 29 135/58 (83) 93 02/10/18 21:10 89 32 100 02/10/18 21:00 144/60 02/10/18 21:00 88 31 144/60 (88) 91 02/10/18 20:30 88 30 135/54 (81) 93 02/10/18 20:00 Mechanical Ventilator 02/10/18 20:00 100 02/10/18 20:00 132/52 02/10/18 20:00 99.5 91 30 132/51 (78) 93 02/10/18 19:56 90 02/10/18 19:30 94 18 131/54 (79) 92 02/10/18 19:14 95 30 92 Mechanical Ventilator 100 02/10/18 19:04 92 34 92 Mechanical Ventilator 02/10/18 19:03 92 30 100 02/10/18 19:00 94 22 128/48 (74) 89 02/10/18 19:00 128/48 18 18:08 87/45 02/10/18 18:00 93 22 134/55 (81) 89 02/10/18 17:00 22 22 66/35 (45) 89 02/10/18 16:49 69 30 85 02/10/18 16:00 99.8 69 22 86/43 (57) 95 02/10/18 16:00 85 02/10/18 16:00 69 02/10/18 16:00 Mechanical Ventilator 02/10/18 15:00 69 19 95/46 (62) 95 02/10/18 14:58 69 32 85 02/10/18 14:00 70 22 104/41 (62) 95 02/10/18 13:30 72 23 89/45 (60) 96 02/10/18 13:00 72 23 95/46 (62) 96 02/10/18 12:58 72 32 100 Mechanical Ventilator 80 02/10/18 12:55 69 30 85 02/10/18 12:53 70 33 99 Mechanical Ventilator 02/10/18 12:30 100.0 72 19 95/46 (62) 97 Intake and Output 02/10/18 02/11/18 19:00 07:00 Intake Total 1670.17 ml 1418.320 ml Output Total 176 ml 465 ml Balance 1494.17 ml 953.320 ml Free Water 60 ml IV Total 1110.17 ml 1418.320 ml Tube Feeding 500 ml 0 ml Output Urine Total 176 ml 465 ml # Bowel Movements 1 Laboratory Tests Test 02/10/18 17:32 02/10/18 22:00 02/10/18 23:00 02/11/18 05:05 Arterial Blood pH 7.089 (7.350-7.450) 7.198 (7.350-7.450) Arterial Blood Partial Pressure CO2 154.1 mmHg (35.0-45.0) *H 115.3 mmHg (35.0-45.0) *H Arterial Blood Partial Pressure O2 19.2 mmHg (75.0-100.0) 61.1 mmHg (75.0-100.0) L Arterial Blood HCO3 45.6 mmol/L (22.0-26.0) *H 43.8 mmol/L (22.0-26.0) *H Arterial Blood Oxygen Saturation 20.7 % (95-100) *L 90.5 % (95-100) L Arterial Blood Base Excess 12.6 (-2-2) *H 12.2 (-2-2) *H Dima Test Positive Positive Urine Color Yellow Urine Appearance Cloudy Urine pH 5 (4.5-8.0) Urine Specific [place] 1.020 (1.005-1.035) Urine Protein 3+ (NEGATIVE) H Urine Glucose (UA) Negative (NEGATIVE) Urine Ketones Negative (NEGATIVE) Urine Blood 5+ (NEGATIVE) H Urine Nitrite Negative (NEGATIVE) Urine Bilirubin Negative (NEGATIVE) Urine Urobilinogen Normal MG/DL (0.0-1.0) Urine Leukocyte Esterase 2+ (NEGATIVE) H Urine RBC 40-60 /HPF (0 - 0) H Urine WBC 5-10 /HPF (0 - 0) H Urine Squamous Epithelial Cells Few /LPF (NONE/OCC) Urine Bacteria Many /HPF (NONE) H Urine Coarse Granular Casts 10-15 /LPF (NONE) H Urine Mucus Moderate /LPF (NONE/OCC) H Urine Yeast Many /HPF (NONE) H White Blood Count 12.2 K/UL (4.8-10.8) H Red Blood Count 3.09 M/UL (4.70-6.10) L Hemoglobin 9.6 G/DL (14.2-18.0) L Hematocrit 31.8 % (42.0-52.0) L Mean Corpuscular Volume 103 FL (80-99) H Mean Corpuscular Hemoglobin 31.2 PG (27.0-31.0) H Mean Corpuscular Hemoglobin Concent 30.3 G/DL (32.0-36.0) L Red Cell Distribution Width 14.3 % (11.6-14.8) Platelet Count 260 K/UL (150-450) Mean Platelet Volume 7.0 FL (6.5-10.1) Neutrophils (%) (Auto) 83.2 % (45.0-75.0) H Lymphocytes (%) (Auto) 7.2 % (20.0-45.0) L Monocytes (%) (Auto) 8.2 % (1.0-10.0) Eosinophils (%) (Auto) 0.1 % (0.0-3.0) Basophils (%) (Auto) 1.2 % (0.0-2.0) Sodium Level 148 MMOL/L (136-145) H Potassium Level 5.5 MMOL/L (3.5-5.1) H Chloride Level 106 MMOL/L (98-107) Carbon Dioxide Level 40 MMOL/L (21-32) H Anion Gap 2 mmol/L (5-15) L Blood Urea Nitrogen 82 mg/dL (7-18) H Creatinine 2.3 MG/DL (0.55-1.30) #H Estimat Glomerular Filtration Rate mL/min (>60) Glucose Level 154 MG/DL (74-106) H Uric Acid 7.0 MG/DL (2.6-7.2) Calcium Level 7.8 MG/DL (8.5-10.1) L Phosphorus Level 4.8 MG/DL (2.5-4.9) Magnesium Level 2.6 MG/DL (1.8-2.4) H Total Bilirubin 0.6 MG/DL (0.2-1.0) Gamma Glutamyl Transpeptidase 5 U/L (5-85) Aspartate Amino Transf (AST/SGOT) 25 U/L (15-37) Alanine Aminotransferase (ALT/SGPT) 21 U/L (12-78) Alkaline Phosphatase 59 U/L (46-116) Troponin I 0.149 ng/mL (0.000-0.056) Pro-B-Type Natriuretic Peptide 59470 pg/mL (0-125) H Total Protein 6.1 G/DL (6.4-8.2) L Albumin 1.7 G/DL (3.4-5.0) L Globulin 4.4 g/dL Albumin/Globulin Ratio 0.4 (1.0-2.7) L Test 02/11/18 08:03 Arterial Blood pH 7.211 (7.350-7.450) Arterial Blood Partial Pressure CO2 103.0 mmHg (35.0-45.0) *H Arterial Blood Partial Pressure O2 97.8 mmHg (75.0-100.0) Arterial Blood HCO3 40.4 mmol/L (22.0-26.0) *H Arterial Blood Oxygen Saturation 96.5 % (95-100) Arterial Blood Base Excess 9.6 (-2-2) *H Dima Test Positive Microbiology Date/Time Source Procedure Growth Status 02/09/18 17:00 Sputum Gram Stain - Final Resulted 02/09/18 17:00 Sputum Culture - Preliminary Gram Negative Major Resulted Tyrel Dawson MD Feb 11, 2018 12:32
--- NOTE | 2018-02-11 13:43 | Pulmonolgy Critical Care Note ---
Critical Care - Asmt/Plan Problems: (1) ARDS (adult respiratory distress syndrome) (2) Pulmonary fibrosis (3) Multifocal pneumonia (4) Respiratory disorder with ventilator dependence (5) Lactic acid acidosis (6) Abnormal LFTs (7) OLEG (acute kidney injury) (8) SIRS (systemic inflammatory response syndrome) (9) UTI (urinary tract infection) Assessment/Plan: ASSESSMENT: The patient is a 77-year-old male, current daily smoker with history of hypertension, back pain, lack of health maintenance, presenting with respiratory illness, bilateral pneumonia, lactic acidosis, abnormal kidney function and renal function likely OLEG, and shock liver. 01/26: Prog hypoxemia, inc WOB, tx'd to ICU, intubated 01/27: Gas exchange better, trops downtrending, LA resolved 01/30: Oxygenation stable, stable on vent 02/11: Progressive decline, on max vent support/ARDS, now DNAR PROBLEM LIST: 1. Bilateral parenchymal infiltrates, multilobar pneumonia on top of underlying fibrotic lung disease 2. VDRF 3. Metabolic & respiratory acidosis 4. ARDS 5. Likely underlying pulmonary fibrosis and COPD 6. NSTEMI, likely demand ischemia 7. Lactic acidosis - RESOLVED 8. OLEG 9. Abnormal liver function tests - IMPROVED 10. SIRS 11. History of hypertension. 12. Constipation 13. Severe protein calorie malnutrition TREATMENT PLAN: Continue ventilatory support/settings reviewed: AC 30 PC delta P 25 ---> Vol 200 's, Peak pressure ~ 40, FiO2 100/15 Dec FiO2 to keep SaO2 > 90, then decrease PEEP as able Unstable for tracheostomy RTC and PRN DUOnebs Abx per ID Repeat CXR ordered Repeat TTE ordered BUL/BLE Duplex ordered Continue HCO3- gtt for now Lasix 20 IV x 1, albumin 25 % 25 gm IV x 1 ABG Resume TF's cautiously Hold sedation, monitor MS F/U cardiology recs Wound care GI recs, bowel regimen Discuss GOC, FC Px: Hep SQ, H2B D/W RN, RT Records reviewed CCT 100 min CCT 35 Critical Care - Objective Last 24 Hour Vital Signs Date Time Temp Pulse Resp B/P (MAP) Pulse Ox O2 Delivery O2 Flow Rate FiO2 02/11/18 13:01 95/42 02/11/18 13:00 98.5 83 20 104/49 (67) 100 02/11/18 12:46 94 36 96 Mechanical Ventilator 100 02/11/18 12:44 80 35 100 02/11/18 12:40 97 36 95 Mechanical Ventilator 100 02/11/18 12:00 100 02/11/18 12:00 81 21 107/49 (68) 99 02/11/18 12:00 107/49 02/11/18 12:00 Mechanical Ventilator 02/11/18 11:57 90 02/11/18 11:45 83 16 105/58 (74) 98 02/11/18 11:30 88 25 120/55 (76) 100 02/11/18 11:00 88 24 115/49 (71) 98 02/11/18 11:00 115/49 02/11/18 10:57 106 31 100 02/11/18 10:45 83 20 113/51 (71) 99 02/11/18 10:30 83 20 107/51 (69) 98 02/11/18 10:15 85 22 120/51 (74) 98 02/11/18 10:00 83 21 119/52 (74) 98 02/11/18 10:00 120/51 02/11/18 09:45 106 20 118/44 (68) 99 02/11/18 09:30 86 21 118/48 (71) 98 02/11/18 09:15 85 21 107/49 (68) 99 02/11/18 09:00 86 20 125/53 (77) 99 02/11/18 09:00 107/49 02/11/18 08:53 107 31 100 02/11/18 08:45 85 20 128/54 (78) 99 02/11/18 08:34 95 02/11/18 08:30 107 26 125/57 (79) 100 02/11/18 08:00 Mechanical Ventilator 02/11/18 08:00 100 02/11/18 08:00 121/45 02/11/18 08:00 98.6 85 18 121/45 (70) 99 02/11/18 07:38 84 02/11/18 07:04 105 31 100 Mechanical Ventilator 100 02/11/18 07:02 105 35 100 02/11/18 07:00 112/54 02/11/18 07:00 104 18 112/54 (73) 100 02/11/18 06:57 101 30 100 Mechanical Ventilator 100 02/11/18 06:30 84 30 115/54 (74) 99 02/11/18 06:30 84 25 96/83 (87) 100 02/11/18 06:00 102 30 131/54 (79) 100 02/11/18 06:00 85 30 96/83 (87) 99 02/11/18 06:00 131/54 02/11/18 05:30 102 30 138/62 (87) 100 02/11/18 05:30 102 30 138/62 (87) 99 02/11/18 05:00 101 30 125/56 (79) 99 02/11/18 05:00 102 31 100 02/11/18 05:00 125/58 02/11/18 04:30 102 31 132/64 (86) 96 02/11/18 04:00 99.1 83 30 122/54 (76) 97 02/11/18 04:00 Mechanical Ventilator 02/11/18 04:00 122/54 02/11/18 04:00 100 02/11/18 04:00 90 02/11/18 03:30 85 30 116/49 (71) 99 02/11/18 03:28 128/48 02/11/18 03:07 104 30 100 02/11/18 03:00 104 31 117/54 (75) 100 02/11/18 03:00 117/54 02/11/18 02:30 85 31 115/52 (73) 99 02/11/18 02:00 105 30 131/52 (78) 98 02/11/18 02:00 131/52 02/11/18 01:50 107 30 98 Mechanical Ventilator 100 02/11/18 01:40 88 30 100 02/11/18 01:40 88 30 97 Mechanical Ventilator 100 02/11/18 01:30 87 28 132/52 (78) 96 18 01:00 126/54 02/11/18 01:00 88 31 126/54 (78) 97 02/11/18 00:30 88 31 122/60 (80) 97 02/11/18 00:00 86 02/11/18 00:00 100 02/11/18 00:00 Mechanical Ventilator 02/11/18 00:00 99.2 90 27 128/58 (81) 95 02/11/18 00:00 128/58 02/10/18 23:30 106 28 133/63 (86) 96 02/10/18 23:23 106 31 100 02/10/18 23:00 106 29 139/63 (88) 94 18 23:00 139/63 18 22:30 142/65 18 22:30 106 29 142/65 (90) 94 18 22:25 133/59 18 22:10 139/62 02/10/18 22:00 106 28 138/64 (88) 93 18 22:00 138/64 02/10/18 21:53 132/55 02/10/18 21:30 89 29 135/58 (83) 93 02/10/18 21:10 89 32 100 02/10/18 21:00 144/60 02/10/18 21:00 88 31 144/60 (88) 91 02/10/18 20:30 88 30 135/54 (81) 93 02/10/18 20:00 Mechanical Ventilator 02/10/18 20:00 100 02/10/18 20:00 132/52 02/10/18 20:00 99.5 91 30 132/51 (78) 93 02/10/18 19:56 90 02/10/18 19:30 94 18 131/54 (79) 92 02/10/18 19:14 95 30 92 Mechanical Ventilator 100 02/10/18 19:04 92 34 92 Mechanical Ventilator 02/10/18 19:03 92 30 100 02/10/18 19:00 94 22 128/48 (74) 89 02/10/18 19:00 128/48 02/10/18 18:08 87/45 02/10/18 18:00 93 22 134/55 (81) 89 02/10/18 17:00 22 22 66/35 (45) 89 02/10/18 16:49 69 30 85 02/10/18 16:00 99.8 69 22 86/43 (57) 95 02/10/18 16:00 85 02/10/18 16:00 69 02/10/18 16:00 Mechanical Ventilator 02/10/18 15:00 69 19 95/46 (62) 95 02/10/18 14:58 69 32 85 02/10/18 14:00 70 22 104/41 (62) 95 Status: obtunded HEENT: atraumatic, other - ETT, NGT Lungs: rhonchi Heart: HR/BP unstable Abdomen: soft, non-tender, active bowel sounds Extremities: edema - 2=3+ Micro: Microbiology Date/Time Source Procedure Growth Status 02/09/18 17:00 Sputum Gram Stain - Final Resulted 02/09/18 17:00 Sputum Culture - Preliminary Gram Negative Major Resulted Blood Sugars: BS controlled Critical Care - Subjective ROS Limited/Unobtainable: Yes ICU Day: 17 Intubation Day: 17 Interval Events: Worsening respiratory acidosis SB now on DA gtt FiO2 100 on PSV Thick white secretions DNAR now Condition: critical IV Access: PICC EKG Rhythm: Sinus Bradycardia FI02: 100 Vent Support Breath Rate: 30 Vent Support Mode: AC - AC 30 PC delta P 25 --> , 100/15 Sputum Amount: None PEEP: 15.0 PIP: 41 Secretions: thick white Fluids: [id number] Drips: DA@6mcg Tube Feeding Amount: 0 I&O: Intake and Output 02/10/18 02/11/18 19:00 07:00 Intake Total 1670.17 ml 1418.320 ml Output Total 176 ml 465 ml Balance 1494.17 ml 953.320 ml Free Water 60 ml IV Total 1110.17 ml 1418.320 ml Tube Feeding 500 ml 0 ml Output Urine Total 176 ml 465 ml # Bowel Movements 1 Subjective: IRENE CXR: Worsening b infiltrates ET-Tube: 7.5 ET Position: 23 Labs: Laboratory Tests Test 02/10/18 17:32 02/10/18 22:00 02/10/18 23:00 02/11/18 05:05 Arterial Blood pH 7.089 (7.350-7.450) 7.198 (7.350-7.450) Arterial Blood Partial Pressure CO2 154.1 mmHg (35.0-45.0) *H 115.3 mmHg (35.0-45.0) *H Arterial Blood Partial Pressure O2 19.2 mmHg (75.0-100.0) 61.1 mmHg (75.0-100.0) L Arterial Blood HCO3 45.6 mmol/L (22.0-26.0) *H 43.8 mmol/L (22.0-26.0) *H Arterial Blood Oxygen Saturation 20.7 % (95-100) *L 90.5 % (95-100) L Arterial Blood Base Excess 12.6 (-2-2) *H 12.2 (-2-2) *H Dima Test Positive Positive Urine Color Yellow Urine Appearance Cloudy Urine pH 5 (4.5-8.0) Urine Specific [place] 1.020 (1.005-1.035) Urine Protein 3+ (NEGATIVE) H Urine Glucose (UA) Negative (NEGATIVE) Urine Ketones Negative (NEGATIVE) Urine Blood 5+ (NEGATIVE) H Urine Nitrite Negative (NEGATIVE) Urine Bilirubin Negative (NEGATIVE) Urine Urobilinogen Normal MG/DL (0.0-1.0) Urine Leukocyte Esterase 2+ (NEGATIVE) H Urine RBC 40-60 /HPF (0 - 0) H Urine WBC 5-10 /HPF (0 - 0) H Urine Squamous Epithelial Cells Few /LPF (NONE/OCC) Urine Bacteria Many /HPF (NONE) H Urine Coarse Granular Casts 10-15 /LPF (NONE) H Urine Mucus Moderate /LPF (NONE/OCC) H Urine Yeast Many /HPF (NONE) H White Blood Count 12.2 K/UL (4.8-10.8) H Red Blood Count 3.09 M/UL (4.70-6.10) L Hemoglobin 9.6 G/DL (14.2-18.0) L Hematocrit 31.8 % (42.0-52.0) L Mean Corpuscular Volume 103 FL (80-99) H Mean Corpuscular Hemoglobin 31.2 PG (27.0-31.0) H Mean Corpuscular Hemoglobin Concent 30.3 G/DL (32.0-36.0) L Red Cell Distribution Width 14.3 % (11.6-14.8) Platelet Count 260 K/UL (150-450) Mean Platelet Volume 7.0 FL (6.5-10.1) Neutrophils (%) (Auto) 83.2 % (45.0-75.0) H Lymphocytes (%) (Auto) 7.2 % (20.0-45.0) L Monocytes (%) (Auto) 8.2 % (1.0-10.0) Eosinophils (%) (Auto) 0.1 % (0.0-3.0) Basophils (%) (Auto) 1.2 % (0.0-2.0) Sodium Level 148 MMOL/L (136-145) H Potassium Level 5.5 MMOL/L (3.5-5.1) H Chloride Level 106 MMOL/L (98-107) Carbon Dioxide Level 40 MMOL/L (21-32) H Anion Gap 2 mmol/L (5-15) L Blood Urea Nitrogen 82 mg/dL (7-18) H Creatinine 2.3 MG/DL (0.55-1.30) #H Estimat Glomerular Filtration Rate mL/min (>60) Glucose Level 154 MG/DL (74-106) H Uric Acid 7.0 MG/DL (2.6-7.2) Calcium Level 7.8 MG/DL (8.5-10.1) L Phosphorus Level 4.8 MG/DL (2.5-4.9) Magnesium Level 2.6 MG/DL (1.8-2.4) H Total Bilirubin 0.6 MG/DL (0.2-1.0) Gamma Glutamyl Transpeptidase 5 U/L (5-85) Aspartate Amino Transf (AST/SGOT) 25 U/L (15-37) Alanine Aminotransferase (ALT/SGPT) 21 U/L (12-78) Alkaline Phosphatase 59 U/L (46-116) Troponin I 0.149 ng/mL (0.000-0.056) Pro-B-Type Natriuretic Peptide 58183 pg/mL (0-125) H Total Protein 6.1 G/DL (6.4-8.2) L Albumin 1.7 G/DL (3.4-5.0) L Globulin 4.4 g/dL Albumin/Globulin Ratio 0.4 (1.0-2.7) L Test 02/11/18 08:03 Arterial Blood pH 7.211 (7.350-7.450) Arterial Blood Partial Pressure CO2 103.0 mmHg (35.0-45.0) *H Arterial Blood Partial Pressure O2 97.8 mmHg (75.0-100.0) Arterial Blood HCO3 40.4 mmol/L (22.0-26.0) *H Arterial Blood Oxygen Saturation 96.5 % (95-100) Arterial Blood Base Excess 9.6 (-2-2) *H Dima Test Positive Lev Johnson MD Feb 11, 2018 13:43
[2018-02-11] MEDS: Hydrocortisone 100mg Inj IV SCH ×2 (13:52→21:56)
--- NOTE | 2018-02-11 14:56 | Nephrology Progress Note ---
Assessment/Plan Problem List: (1) OLEG (acute kidney injury) (2) Respiratory disorder with ventilator dependence (3) Abnormal LFTs (4) Lactic acid acidosis (5) UTI (urinary tract infection) (6) Pulmonary fibrosis Assessment Acute renal failure, resolved high K resolved Pneumonia / Sepsis / Hypoxia / UTI HypoAlbuminemia / Proteinuria Acute respiratory failure Pulmonary fibrosis Lactic acidosis Plan STOP ALL PSYCH AND MIND ALTERING MEDS change IV to D5 Hold all bp meds- on pressors albumin bolus as needed Pulm support / on vent IV antibiotics Watch electrolytes Gastric support Per orders DNR now adjust meds for kidney failure Subjective ROS Limited/Unobtainable: Yes Objective Objective Last 24 Hour Vital Signs Date Time Temp Pulse Resp B/P (MAP) Pulse Ox O2 Delivery O2 Flow Rate FiO2 02/11/18 14:45 85 35 100 02/11/18 14:00 120/47 02/11/18 14:00 84 22 121/54 (76) 97 02/11/18 13:51 80 02/11/18 13:30 78 21 103/47 (65) 97 02/11/18 13:01 95/42 02/11/18 13:00 98.5 83 20 104/49 (67) 100 02/11/18 12:46 94 36 96 Mechanical Ventilator 100 02/11/18 12:44 80 35 100 02/11/18 12:40 97 36 95 Mechanical Ventilator 100 02/11/18 12:00 100 02/11/18 12:00 81 21 107/49 (68) 99 02/11/18 12:00 107/49 02/11/18 12:00 Mechanical Ventilator 02/11/18 11:57 90 02/11/18 11:45 83 16 105/58 (74) 98 02/11/18 11:30 88 25 120/55 (76) 100 02/11/18 11:00 88 24 115/49 (71) 98 02/11/18 11:00 115/49 02/11/18 10:57 106 31 100 02/11/18 10:45 83 20 113/51 (71) 99 02/11/18 10:30 83 20 107/51 (69) 98 02/11/18 10:15 85 22 120/51 (74) 98 02/11/18 10:00 83 21 119/52 (74) 98 02/11/18 10:00 120/51 02/11/18 09:45 106 20 118/44 (68) 99 02/11/18 09:30 86 21 118/48 (71) 98 02/11/18 09:15 85 21 107/49 (68) 99 02/11/18 09:00 86 20 125/53 (77) 99 02/11/18 09:00 107/49 02/11/18 08:53 107 31 100 02/11/18 08:45 85 20 128/54 (78) 99 02/11/18 08:34 95 02/11/18 08:30 107 26 125/57 (79) 100 02/11/18 08:00 Mechanical Ventilator 02/11/18 08:00 100 02/11/18 08:00 121/45 02/11/18 08:00 98.6 85 18 121/45 (70) 99 02/11/18 07:38 84 02/11/18 07:04 105 31 100 Mechanical Ventilator 100 02/11/18 07:02 105 35 100 02/11/18 07:00 112/54 02/11/18 07:00 104 18 112/54 (73) 100 02/11/18 06:57 101 30 100 Mechanical Ventilator 100 02/11/18 06:30 84 30 115/54 (74) 99 02/11/18 06:30 84 25 96/83 (87) 100 02/11/18 06:00 102 30 131/54 (79) 100 02/11/18 06:00 85 30 96/83 (87) 99 02/11/18 06:00 131/54 02/11/18 05:30 102 30 138/62 (87) 100 02/11/18 05:30 102 30 138/62 (87) 99 02/11/18 05:00 101 30 125/56 (79) 99 02/11/18 05:00 102 31 100 02/11/18 05:00 125/58 02/11/18 04:30 102 31 132/64 (86) 96 02/11/18 04:00 99.1 83 30 122/54 (76) 97 02/11/18 04:00 Mechanical Ventilator 02/11/18 04:00 122/54 02/11/18 04:00 100 02/11/18 04:00 90 02/11/18 03:30 85 30 116/49 (71) 99 02/11/18 03:28 128/48 02/11/18 03:07 104 30 100 02/11/18 03:00 104 31 117/54 (75) 100 02/11/18 03:00 117/54 02/11/18 02:30 85 31 115/52 (73) 99 02/11/18 02:00 105 30 131/52 (78) 98 02/11/18 02:00 131/52 02/11/18 01:50 107 30 98 Mechanical Ventilator 100 02/11/18 01:40 88 30 100 02/11/18 01:40 88 30 97 Mechanical Ventilator 100 02/11/18 01:30 87 28 132/52 (78) 96 02/11/18 01:00 126/54 02/11/18 01:00 88 31 126/54 (78) 97 02/11/18 00:30 88 31 122/60 (80) 97 02/11/18 00:00 86 02/11/18 00:00 100 02/11/18 00:00 Mechanical Ventilator 02/11/18 00:00 99.2 90 27 128/58 (81) 95 02/11/18 00:00 128/58 02/10/18 23:30 106 28 133/63 (86) 96 02/10/18 23:23 106 31 100 02/10/18 23:00 106 29 139/63 (88) 94 18 23:00 139/63 18 22:30 142/65 18 22:30 106 29 142/65 (90) 94 18 22:25 133/59 18 22:10 139/62 18 22:00 106 28 138/64 (88) 93 18 22:00 138/64 18 21:53 132/55 02/10/18 21:30 89 29 135/58 (83) 93 02/10/18 21:10 89 32 100 02/10/18 21:00 144/60 02/10/18 21:00 88 31 144/60 (88) 91 02/10/18 20:30 88 30 135/54 (81) 93 02/10/18 20:00 Mechanical Ventilator 02/10/18 20:00 100 02/10/18 20:00 132/52 02/10/18 20:00 99.5 91 30 132/51 (78) 93 02/10/18 19:56 90 02/10/18 19:30 94 18 131/54 (79) 92 02/10/18 19:14 95 30 92 Mechanical Ventilator 100 02/10/18 19:04 92 34 92 Mechanical Ventilator 02/10/18 19:03 92 30 100 02/10/18 19:00 94 22 128/48 (74) 89 02/10/18 19:00 128/48 02/10/18 18:08 87/45 02/10/18 18:00 93 22 134/55 (81) 89 02/10/18 17:00 22 22 66/35 (45) 89 02/10/18 16:49 69 30 85 02/10/18 16:00 99.8 69 22 86/43 (57) 95 02/10/18 16:00 85 02/10/18 16:00 69 02/10/18 16:00 Mechanical Ventilator 02/10/18 15:00 69 19 95/46 (62) 95 02/10/18 14:58 69 32 85 Intake and Output 02/10/18 02/11/18 19:00 07:00 Intake Total 1670.17 ml 1418.320 ml Output Total 176 ml 465 ml Balance 1494.17 ml 953.320 ml Free Water 60 ml IV Total 1110.17 ml 1418.320 ml Tube Feeding 500 ml 0 ml Output Urine Total 176 ml 465 ml # Bowel Movements 1 Laboratory Tests 02/10/18 17:32: Arterial Blood pH 7.089*L, Arterial Blood Partial Pressure CO2 154.1*H, Arterial Blood Partial Pressure O2 19.2*L, Arterial Blood HCO3 45.6*H, Arterial Blood Oxygen Saturation 20.7*L, Arterial Blood Base Excess 12.6*H, Dima Test Positive 02/10/18 22:00: Arterial Blood pH 7.198*L, Arterial Blood Partial Pressure CO2 115.3*H, Arterial Blood Partial Pressure O2 61.1L, Arterial Blood HCO3 43.8*H, Arterial Blood Oxygen Saturation 90.5L, Arterial Blood Base Excess 12.2*H, Dima Test Positive 02/10/18 23:00: Urine Color Yellow, Urine Appearance Cloudy, Urine pH 5, Urine Specific [place] 1.020, Urine Protein 3+H, Urine Glucose (UA) Negative, Urine Ketones Negative, Urine Blood 5+H, Urine Nitrite Negative, Urine Bilirubin Negative, Urine Urobilinogen Normal, Urine Leukocyte Esterase 2+H, Urine RBC 40-60H, Urine WBC 5 -10H, Urine Squamous Epithelial Cells Few, Urine Bacteria ManyH, Urine Coarse Granular Casts 10-15H, Urine Mucus ModerateH, Urine Yeast ManyH 02/11/18 05:05: White Blood Count 12.2H, Red Blood Count 3.09L, Hemoglobin 9.6L, Hematocrit 31.8L, Mean Corpuscular Volume 103H, Mean Corpuscular Hemoglobin 31.2H, Mean Corpuscular Hemoglobin Concent 30.3L, Red Cell Distribution Width 14.3, Platelet Count 260, Mean Platelet Volume 7.0, Neutrophils (%) (Auto) 83.2H, Lymphocytes (%) (Auto) 7.2L, Monocytes (%) (Auto) 8.2, Eosinophils (%) (Auto) 0.1, Basophils (%) (Auto) 1.2, Sodium Level 148H, Potassium Level 5.5H, Chloride Level 106, Carbon Dioxide Level 40H, Anion Gap 2L, Blood Urea Nitrogen 82H, Creatinine 2.3#H, Estimat Glomerular Filtration Rate , Glucose Level 154H, Uric Acid 7.0, Calcium Level 7.8L, Phosphorus Level 4.8, Magnesium Level 2.6H, Total Bilirubin 0.6, Gamma Glutamyl Transpeptidase 5, Aspartate Amino Transf ( AST/SGOT) 25, Alanine Aminotransferase (ALT/SGPT) 21, Alkaline Phosphatase 59, Troponin I 0.149H, Pro-B-Type Natriuretic Peptide 68289M, Total Protein 6.1L, Albumin 1.7L, Globulin 4.4, Albumin/Globulin Ratio 0.4L, Cortisol [Pending] 02/11/18 08:03: Arterial Blood pH 7.211*L, Arterial Blood Partial Pressure CO2 103.0*H, Arterial Blood Partial Pressure O2 97.8, Arterial Blood HCO3 40.4*H, Arterial Blood Oxygen Saturation 96.5, Arterial Blood Base Excess 9.6*H, Dima Test Positive Height (Feet): 5 Height (Inches): 9.00 Weight (Pounds): 165 General Appearance: no apparent distress EENT: other - intubated Respiratory/Chest: decreased breath sounds Abdomen: distended Neurologic: other - unresponsive Objective no change Juan C Mclaughlin MD Feb 11, 2018 14:56
[2018-02-11] MEDS: Pantoprazole Inj IVP SCH (15:23)
--- NOTE | 2018-02-11 16:03 | General Progress Note ---
Assessment/Plan Status: unchanged Assessment/Plan # Leukocytosis. Secondary to sepsis and pna. is on abx at this time --> WBC improving 16k--> 12k-->13k-->12.2k-->14.2k-->12 --> Peripheral smear reviewed and no blasts are noted --> Medications have been reviewed --> Imaging has been reviewed, reveals apparent worsening of bilateral parenchymal disease --> Blood cultures and urine cultures are negative --> abx, empiric treatment per id # Anemia of chronic disease due to underlying chronic medical issues, multifactorial. --> Anemia panel has been reviewed. Ferritin at 674 --> Cont to monitor for stability --> Hgb goal >7, transfuse prn --> hgb 13-->11.2-->11-->9.5-->9.6 # Coagulopathy is now off hep gtt --> hepatitis A++, HIV negative --> ptt and mixing study - elevated at 30.8 # Respiratory failure is on a vent. --> Intubated --> Pt unable to wean off of vent --> per pulm # Pneumonia. s/p abx # Urinary tract infection. --> s/p abx # Status post recurrent falls. # Sepsis. # Dehydration. # Afib and now in sr --> as per cards # DNR with limited measures GREATLY APPRECIATE CONSULTATION. Subjective Date patient seen: Feb 11, 2018 Hematologic/Lymphatic: Reports: anemia Allergies: Coded Allergies: No Known Allergies (Unverified , 01/24/18) All Systems: reviewed and negative except above Subjective S/P trach. Pt awake and agitated. Pt remains in ICU, on vent. No acute events. Remains on abx. Objective Last 24 Hour Vital Signs Date Time Temp Pulse Resp B/P (MAP) Pulse Ox O2 Delivery O2 Flow Rate FiO2 02/11/18 15:12 100 02/11/18 15:00 82 27 146/66 (92) 87 02/11/18 15:00 146/65 02/11/18 14:45 85 22 140/121 (127) 94 02/11/18 14:45 85 35 100 02/11/18 14:30 111 21 127/51 (76) 96 02/11/18 14:00 120/47 02/11/18 14:00 84 22 121/54 (76) 97 02/11/18 13:51 80 02/11/18 13:30 78 21 103/47 (65) 97 02/11/18 13:01 95/42 02/11/18 13:00 98.5 83 20 104/49 (67) 100 02/11/18 12:46 94 36 96 Mechanical Ventilator 100 02/11/18 12:44 80 35 100 02/11/18 12:40 97 36 95 Mechanical Ventilator 100 02/11/18 12:00 100 02/11/18 12:00 81 21 107/49 (68) 99 02/11/18 12:00 107/49 02/11/18 12:00 Mechanical Ventilator 02/11/18 11:57 90 02/11/18 11:45 83 16 105/58 (74) 98 02/11/18 11:30 88 25 120/55 (76) 100 02/11/18 11:00 88 24 115/49 (71) 98 02/11/18 11:00 115/49 02/11/18 10:57 106 31 100 02/11/18 10:45 83 20 113/51 (71) 99 02/11/18 10:30 83 20 107/51 (69) 98 02/11/18 10:15 85 22 120/51 (74) 98 02/11/18 10:00 83 21 119/52 (74) 98 02/11/18 10:00 120/51 02/11/18 09:45 106 20 118/44 (68) 99 02/11/18 09:30 86 21 118/48 (71) 98 02/11/18 09:15 85 21 107/49 (68) 99 02/11/18 09:00 86 20 125/53 (77) 99 02/11/18 09:00 107/49 02/11/18 08:53 107 31 100 02/11/18 08:45 85 20 128/54 (78) 99 02/11/18 08:34 95 02/11/18 08:30 107 26 125/57 (79) 100 02/11/18 08:00 Mechanical Ventilator 02/11/18 08:00 100 02/11/18 08:00 121/45 02/11/18 08:00 98.6 85 18 121/45 (70) 99 02/11/18 07:38 84 02/11/18 07:04 105 31 100 Mechanical Ventilator 100 02/11/18 07:02 105 35 100 02/11/18 07:00 112/54 02/11/18 07:00 104 18 112/54 (73) 100 02/11/18 06:57 101 30 100 Mechanical Ventilator 100 02/11/18 06:30 84 30 115/54 (74) 99 02/11/18 06:30 84 25 96/83 (87) 100 02/11/18 06:00 102 30 131/54 (79) 100 02/11/18 06:00 85 30 96/83 (87) 99 02/11/18 06:00 131/54 02/11/18 05:30 102 30 138/62 (87) 100 02/11/18 05:30 102 30 138/62 (87) 99 02/11/18 05:00 101 30 125/56 (79) 99 02/11/18 05:00 102 31 100 02/11/18 05:00 125/58 02/11/18 04:30 102 31 132/64 (86) 96 02/11/18 04:00 99.1 83 30 122/54 (76) 97 02/11/18 04:00 Mechanical Ventilator 02/11/18 04:00 122/54 02/11/18 04:00 100 02/11/18 04:00 90 02/11/18 03:30 85 30 116/49 (71) 99 02/11/18 03:28 128/48 02/11/18 03:07 104 30 100 02/11/18 03:00 104 31 117/54 (75) 100 02/11/18 03:00 117/54 02/11/18 02:30 85 31 115/52 (73) 99 02/11/18 02:00 105 30 131/52 (78) 98 02/11/18 02:00 131/52 02/11/18 01:50 107 30 98 Mechanical Ventilator 100 02/11/18 01:40 88 30 100 02/11/18 01:40 88 30 97 Mechanical Ventilator 100 02/11/18 01:30 87 28 132/52 (78) 96 02/11/18 01:00 126/54 02/11/18 01:00 88 31 126/54 (78) 97 02/11/18 00:30 88 31 122/60 (80) 97 02/11/18 00:00 86 02/11/18 00:00 100 02/11/18 00:00 Mechanical Ventilator 02/11/18 00:00 99.2 90 27 128/58 (81) 95 02/11/18 00:00 128/58 02/10/18 23:30 106 28 133/63 (86) 96 02/10/18 23:23 106 31 100 02/10/18 23:00 106 29 139/63 (88) 94 02/10/18 23:00 139/63 02/10/18 22:30 142/65 02/10/18 22:30 106 29 142/65 (90) 94 02/10/18 22:25 133/59 02/10/18 22:10 139/62 02/10/18 22:00 106 28 138/64 (88) 93 02/10/18 22:00 138/64 02/10/18 21:53 132/55 02/10/18 21:30 89 29 135/58 (83) 93 02/10/18 21:10 89 32 100 02/10/18 21:00 144/60 02/10/18 21:00 88 31 144/60 (88) 91 02/10/18 20:30 88 30 135/54 (81) 93 02/10/18 20:00 Mechanical Ventilator 02/10/18 20:00 100 02/10/18 20:00 132/52 02/10/18 20:00 99.5 91 30 132/51 (78) 93 02/10/18 19:56 90 02/10/18 19:30 94 18 131/54 (79) 92 02/10/18 19:14 95 30 92 Mechanical Ventilator 100 02/10/18 19:04 92 34 92 Mechanical Ventilator 02/10/18 19:03 92 30 100 02/10/18 19:00 94 22 128/48 (74) 89 02/10/18 19:00 128/48 02/10/18 18:08 87/45 02/10/18 18:00 93 22 134/55 (81) 89 02/10/18 17:00 22 22 66/35 (45) 89 02/10/18 16:49 69 30 85 Intake and Output 02/10/18 02/11/18 19:00 07:00 Intake Total 1670.17 ml 1418.320 ml Output Total 176 ml 465 ml Balance 1494.17 ml 953.320 ml Free Water 60 ml IV Total 1110.17 ml 1418.320 ml Tube Feeding 500 ml 0 ml Output Urine Total 176 ml 465 ml # Bowel Movements 1 Laboratory Tests 02/10/18 17:32: Arterial Blood pH 7.089*L, Arterial Blood Partial Pressure CO2 154.1*H, Arterial Blood Partial Pressure O2 19.2*L, Arterial Blood HCO3 45.6*H, Arterial Blood Oxygen Saturation 20.7*L, Arterial Blood Base Excess 12.6*H, Dima Test Positive 02/10/18 22:00: Arterial Blood pH 7.198*L, Arterial Blood Partial Pressure CO2 115.3*H, Arterial Blood Partial Pressure O2 61.1L, Arterial Blood HCO3 43.8*H, Arterial Blood Oxygen Saturation 90.5L, Arterial Blood Base Excess 12.2*H, Dima Test Positive 02/10/18 23:00: Urine Color Yellow, Urine Appearance Cloudy, Urine pH 5, Urine Specific [place] 1.020, Urine Protein 3+H, Urine Glucose (UA) Negative, Urine Ketones Negative, Urine Blood 5+H, Urine Nitrite Negative, Urine Bilirubin Negative, Urine Urobilinogen Normal, Urine Leukocyte Esterase 2+H, Urine RBC 40-60H, Urine WBC 5 -10H, Urine Squamous Epithelial Cells Few, Urine Bacteria ManyH, Urine Coarse Granular Casts 10-15H, Urine Mucus ModerateH, Urine Yeast ManyH 02/11/18 05:05: White Blood Count 12.2H, Red Blood Count 3.09L, Hemoglobin 9.6L, Hematocrit 31.8L, Mean Corpuscular Volume 103H, Mean Corpuscular Hemoglobin 31.2H, Mean Corpuscular Hemoglobin Concent 30.3L, Red Cell Distribution Width 14.3, Platelet Count 260, Mean Platelet Volume 7.0, Neutrophils (%) (Auto) 83.2H, Lymphocytes (%) (Auto) 7.2L, Monocytes (%) (Auto) 8.2, Eosinophils (%) (Auto) 0.1, Basophils (%) (Auto) 1.2, Sodium Level 148H, Potassium Level 5.5H, Chloride Level 106, Carbon Dioxide Level 40H, Anion Gap 2L, Blood Urea Nitrogen 82H, Creatinine 2.3#H, Estimat Glomerular Filtration Rate , Glucose Level 154H, Uric Acid 7.0, Calcium Level 7.8L, Phosphorus Level 4.8, Magnesium Level 2.6H, Total Bilirubin 0.6, Gamma Glutamyl Transpeptidase 5, Aspartate Amino Transf ( AST/SGOT) 25, Alanine Aminotransferase (ALT/SGPT) 21, Alkaline Phosphatase 59, Troponin I 0.149H, C-Reactive Protein, Quantitative 14.5H, Pro-B-Type Natriuretic Peptide 75126E, Total Protein 6.1L, Albumin 1.7L, Globulin 4.4, Albumin/Globulin Ratio 0.4L, Cortisol [Pending] 02/11/18 08:03: Arterial Blood pH 7.211*L, Arterial Blood Partial Pressure CO2 103.0*H, Arterial Blood Partial Pressure O2 97.8, Arterial Blood HCO3 40.4*H, Arterial Blood Oxygen Saturation 96.5, Arterial Blood Base Excess 9.6*H, Dima Test Positive Height (Feet): 5 Height (Inches): 9.00 Weight (Pounds): 165 Objective Status: awake Condition: critical Lungs: rhonchi ++ VENT Heart: HR/BP stable Abdomen: soft, non-tender, active bowel sounds Extremities: no C/C/E Decubiti: location - sacral Blood Sugars: BS controlled Fabian Yung MD Feb 11, 2018 16:03
[2018-02-11] MEDS ORDERED: LR 1000ml ONE (16:23)
[2018-02-11] MEDS ORDERED: NS 275ml ONE (16:23)
[2018-02-11] MEDS ORDERED: Tubing IV Secondary IV ONE (16:23)
[2018-02-11] MEDS: Dyna-Hex 2% Top Sol 2oz TOPIC SCH (20:45)
[2018-02-11] MEDS: Miralax 17gm pkt NG SCH (21:55)
--- NOTE | 2018-02-11 23:59 | General Surgery Progress Note ---
General Surgery-Progress Note Subjective Additional Comments late entry for patient seen earlier. no significant improvement. remains critical. Peep 15, fi02 100% Objective Last 24 Hour Vital Signs Date Time Temp Pulse Resp B/P (MAP) Pulse Ox O2 Delivery O2 Flow Rate FiO2 02/11/18 23:08 81 34 100 02/11/18 22:45 81 26 118/58 (78) 100 02/11/18 22:30 80 21 113/55 (74) 100 02/11/18 22:15 96 25 129/65 (86) 100 02/11/18 22:00 129/65 02/11/18 22:00 79 21 126/61 (82) 98 02/11/18 21:45 80 19 117/68 (84) 98 02/11/18 21:30 79 21 115/59 (77) 98 02/11/18 21:15 81 21 119/57 (77) 97 02/11/18 21:01 84 34 100 02/11/18 21:00 81 21 121/56 (77) 98 02/11/18 21:00 119/57 02/11/18 20:45 96 21 122/61 (81) 99 02/11/18 20:30 81 19 120/62 (81) 100 02/11/18 20:15 80 19 110/52 (71) 100 02/11/18 20:00 Mechanical Ventilator 02/11/18 20:00 98.4 82 17 105/50 (68) 100 02/11/18 20:00 81 02/11/18 20:00 110/52 02/11/18 20:00 100 02/11/18 19:00 79 17 103/49 (67) 100 02/11/18 19:00 117/54 02/11/18 18:50 79 33 100 Mechanical Ventilator 100 02/11/18 18:39 79 32 99 Mechanical Ventilator 100 02/11/18 18:34 79 32 100 02/11/18 18:30 77 21 108/51 (70) 98 02/11/18 18:15 80 21 111/53 (72) 97 02/11/18 18:00 80 21 111/51 (71) 97 18 18:00 111/51 02/11/18 17:45 80 20 122/57 (78) 97 02/11/18 17:30 81 21 130/58 (82) 98 12/22/18 17:15 81 20 141/60 (87) 97 02/11/18 17:09 81 34 100 02/11/18 17:00 121/57 02/11/18 17:00 110 21 137/68 (91) 99 02/11/18 16:30 109 30 120/59 (79) 100 02/11/18 16:02 83 02/11/18 16:00 98.6 83 18 120/55 (76) 100 02/11/18 16:00 Mechanical Ventilator 02/11/18 16:00 120/50 02/11/18 15:30 86 20 121/51 (74) 98 02/11/18 15:12 100 02/11/18 15:00 82 27 146/66 (92) 87 02/11/18 15:00 146/65 02/11/18 14:45 85 22 140/121 (127) 94 02/11/18 14:45 85 35 100 02/11/18 14:30 111 21 127/51 (76) 96 02/11/18 14:00 120/47 02/11/18 14:00 84 22 121/54 (76) 97 02/11/18 13:51 80 02/11/18 13:30 78 21 103/47 (65) 97 02/11/18 13:01 95/42 02/11/18 13:00 98.5 83 20 104/49 (67) 100 02/11/18 12:46 94 36 96 Mechanical Ventilator 100 02/11/18 12:44 80 35 100 02/11/18 12:40 97 36 95 Mechanical Ventilator 100 02/11/18 12:00 100 02/11/18 12:00 81 21 107/49 (68) 99 02/11/18 12:00 107/49 02/11/18 12:00 Mechanical Ventilator 02/11/18 11:57 90 02/11/18 11:45 83 16 105/58 (74) 98 02/11/18 11:30 88 25 120/55 (76) 100 02/11/18 11:00 88 24 115/49 (71) 98 02/11/18 11:00 115/49 02/11/18 10:57 106 31 100 02/11/18 10:45 83 20 113/51 (71) 99 02/11/18 10:30 83 20 107/51 (69) 98 02/11/18 10:15 85 22 120/51 (74) 98 02/11/18 10:00 83 21 119/52 (74) 98 02/11/18 10:00 120/51 02/11/18 09:45 106 20 118/44 (68) 99 02/11/18 09:30 86 21 118/48 (71) 98 02/11/18 09:15 85 21 107/49 (68) 99 02/11/18 09:00 86 20 125/53 (77) 99 02/11/18 09:00 107/49 02/11/18 08:53 107 31 100 02/11/18 08:45 85 20 128/54 (78) 99 02/11/18 08:34 95 02/11/18 08:30 107 26 125/57 (79) 100 02/11/18 08:00 Mechanical Ventilator 02/11/18 08:00 100 02/11/18 08:00 121/45 02/11/18 08:00 98.6 85 18 121/45 (70) 99 02/11/18 07:38 84 02/11/18 07:04 105 31 100 Mechanical Ventilator 100 02/11/18 07:02 105 35 100 02/11/18 07:00 112/54 02/11/18 07:00 104 18 112/54 (73) 100 02/11/18 06:57 101 30 100 Mechanical Ventilator 100 02/11/18 06:30 84 30 115/54 (74) 99 02/11/18 06:30 84 25 96/83 (87) 100 02/11/18 06:00 102 30 131/54 (79) 100 02/11/18 06:00 85 30 96/83 (87) 99 02/11/18 06:00 131/54 02/11/18 05:30 102 30 138/62 (87) 100 02/11/18 05:30 102 30 138/62 (87) 99 02/11/18 05:00 101 30 125/56 (79) 99 02/11/18 05:00 102 31 100 02/11/18 05:00 125/58 02/11/18 04:30 102 31 132/64 (86) 96 02/11/18 04:00 99.1 83 30 122/54 (76) 97 02/11/18 04:00 Mechanical Ventilator 02/11/18 04:00 122/54 02/11/18 04:00 100 02/11/18 04:00 90 02/11/18 03:30 85 30 116/49 (71) 99 02/11/18 03:28 128/48 02/11/18 03:07 104 30 100 02/11/18 03:00 104 31 117/54 (75) 100 02/11/18 03:00 117/54 02/11/18 02:30 85 31 115/52 (73) 99 02/11/18 02:00 105 30 131/52 (78) 98 02/11/18 02:00 131/52 02/11/18 01:50 107 30 98 Mechanical Ventilator 100 02/11/18 01:40 88 30 100 02/11/18 01:40 88 30 97 Mechanical Ventilator 100 02/11/18 01:30 87 28 132/52 (78) 96 02/11/18 01:00 126/54 02/11/18 01:00 88 31 126/54 (78) 97 02/11/18 00:30 88 31 122/60 (80) 97 02/11/18 00:00 86 02/11/18 00:00 100 02/11/18 00:00 Mechanical Ventilator 02/11/18 00:00 99.2 90 27 128/58 (81) 95 02/11/18 00:00 128/58 I&O Intake and Output 02/10/18 02/11/18 19:00 07:00 Intake Total 1670.17 ml 1418.320 ml Output Total 176 ml 465 ml Balance 1494.17 ml 953.320 ml Free Water 60 ml IV Total 1110.17 ml 1418.320 ml Tube Feeding 500 ml 0 ml Output Urine Total 176 ml 465 ml # Bowel Movements 1 Laboratory Tests Test 02/11/18 05:05 02/11/18 08:03 White Blood Count 12.2 K/UL (4.8-10.8) H Red Blood Count 3.09 M/UL (4.70-6.10) L Hemoglobin 9.6 G/DL (14.2-18.0) L Hematocrit 31.8 % (42.0-52.0) L Mean Corpuscular Volume 103 FL (80-99) H Mean Corpuscular Hemoglobin 31.2 PG (27.0-31.0) H Mean Corpuscular Hemoglobin Concent 30.3 G/DL (32.0-36.0) L Red Cell Distribution Width 14.3 % (11.6-14.8) Platelet Count 260 K/UL (150-450) Mean Platelet Volume 7.0 FL (6.5-10.1) Neutrophils (%) (Auto) 83.2 % (45.0-75.0) H Lymphocytes (%) (Auto) 7.2 % (20.0-45.0) L Monocytes (%) (Auto) 8.2 % (1.0-10.0) Eosinophils (%) (Auto) 0.1 % (0.0-3.0) Basophils (%) (Auto) 1.2 % (0.0-2.0) Sodium Level 148 MMOL/L (136-145) H Potassium Level 5.5 MMOL/L (3.5-5.1) H Chloride Level 106 MMOL/L (98-107) Carbon Dioxide Level 40 MMOL/L (21-32) H Anion Gap 2 mmol/L (5-15) L Blood Urea Nitrogen 82 mg/dL (7-18) H Creatinine 2.3 MG/DL (0.55-1.30) #H Estimat Glomerular Filtration Rate mL/min (>60) Glucose Level 154 MG/DL (74-106) H Uric Acid 7.0 MG/DL (2.6-7.2) Calcium Level 7.8 MG/DL (8.5-10.1) L Phosphorus Level 4.8 MG/DL (2.5-4.9) Magnesium Level 2.6 MG/DL (1.8-2.4) H Total Bilirubin 0.6 MG/DL (0.2-1.0) Gamma Glutamyl Transpeptidase 5 U/L (5-85) Aspartate Amino Transf (AST/SGOT) 25 U/L (15-37) Alanine Aminotransferase (ALT/SGPT) 21 U/L (12-78) Alkaline Phosphatase 59 U/L (46-116) Troponin I 0.149 ng/mL (0.000-0.056) C-Reactive Protein, Quantitative 14.5 mg/dL (0.00-0.90) H Pro-B-Type Natriuretic Peptide 31767 pg/mL (0-125) H Total Protein 6.1 G/DL (6.4-8.2) L Albumin 1.7 G/DL (3.4-5.0) L Globulin 4.4 g/dL Albumin/Globulin Ratio 0.4 (1.0-2.7) L Cortisol Pending Arterial Blood pH 7.211 (7.350-7.450) Arterial Blood Partial Pressure CO2 103.0 mmHg (35.0-45.0) *H Arterial Blood Partial Pressure O2 97.8 mmHg (75.0-100.0) Arterial Blood HCO3 40.4 mmol/L (22.0-26.0) *H Arterial Blood Oxygen Saturation 96.5 % (95-100) Arterial Blood Base Excess 9.6 (-2-2) *H Dima Test Positive Plan Problems: (1) Decubitus ulcer of sacral region, stage 3 Assessment & Plan: Stage III full thickness pressure injury sacrum present on admission (L)2cm x (W)1.8cm ,wound bed with 80% yellow slough ,20% granular Borders slightly macerated. Non-blanching erythema without elevation in skin temp, or induration periwound. NO odor noted. Abrasions noted to R elbow (L)3.2cm x (W)1.9cm.Wound with Biofilm ,erythema al; lynn borders .Periwound clean and intact. Abrasion noted to L elbow(L)5.5cm x (W)1.6cm ,biofim noted to wound bed .erythema along borders .Periwound without erythema or elevation in skin temp. Abrasion lateral L knee with dry scab. Abrasion medial R knee with dry scab. Bilat heels boggy with non-blanching erythema. Non-tender when palpated. Pt repositioned with pillow on his side but restless and repositioned self on back. given critical condition will continue with maximal efforts to reduce worsening wounds as in this condition may deteriorate Tx.Plan: Cleanse R and L elbows with Saline.Apply Silvasorb Gel to both elbows .Cover with Optifoam drsg .Change every 3 Days and prn. Cleanse Sacral Pressure injury with Saline.Apply Therahoney .Cavilon periwound.Cover with Optifoam drsg Daily and prn. Apply Cavilon to Both heels.Cover with Optifoam drsg .Change Every 7 days and prn. Cavilon to abrasions R and L lower ext.Cover with Optifoam change every 7 days and prn. Off-load heels with pillow. Reposition at least every 2 hours or as tolerated. Surface support mattress. (2) Abnormal LFTs Assessment & Plan: US reviewed - absent GB dilated ducts CT reviewed - dilated duct without notable obstruction LFT's noted and elevated t bili trending down no jaundice AST/ALT nml Alk phos nml leukocytosis trending down -no acute surgical intervention necessary -t bili and d bili correlate. unlikely obstructive at this time. especially with history of cholecystectomy prior -trend labs thank you (3) Severe sepsis Assessment & Plan: not weaning off vent easy. will likely require halfway vent support vent requirement high consider trach soon but not ready yet vent requirement significant unlikely to be able to wean off vent Myke Merino Feb 11, 2018 23:59
[2018-02-12] VITALS (35 sets, daily range): BP systolic 88–147; BP diastolic 41–86
[2018-02-12] MEDS: Albuterol/Ipratropium 3ml neb HHN SCH ×4 (00:43→18:51)
[2018-02-12] MEDS: Midazolam 2mg/2ml Inj IVP PRN (02:52)
[2018-02-12 06:19] LABS: HEMATOCRIT 25.1 % (42.0-52.0); MEAN CORPUSCULAR VOLUME 100 FL (80-99); PLATELET COUNT 202 K/UL (150-450); RED BLOOD COUNT 2.51 M/UL (4.70-6.10); WHITE BLOOD COUNT 8.9 K/UL (4.8-10.8)
[2018-02-12 06:43] LABS: AMMONIA 26 umol/L (11-32)
[2018-02-12] MEDS: Hydrocortisone 100mg Inj IV SCH ×3 (06:48→21:34)
[2018-02-12] MEDS: Sodium Bicarbonate 150 ML in D5W 1000ml 1,000 ML IV SCH ×2 (07:01→20:38)
[2018-02-12 07:06] LABS: ALANINE AMINOTRANSFERASE 20 U/L (12-78); ALBUMIN 1.7 G/DL (3.4-5.0); ALBUMIN/GLOBULIN RATIO 0.4 (1.0-2.7); ALKALINE PHOSPHATASE 49 U/L (46-116); ASPARTATE AMINO TRANSFERASE 21 U/L (15-37); BILIRUBIN,TOTAL 0.5 MG/DL (0.2-1.0); BLOOD UREA NITROGEN 92 mg/dL (7-18); CALCIUM 7.3 MG/DL (8.5-10.1); CREATINE KINASE 57 U/L (26-308); CREATININE 2.6 MG/DL (0.55-1.30); GAMMA GLUTAMYL TRANSPEPTIDASE 7 U/L (5-85); POTASSIUM 4.3 MMOL/L (3.5-5.1); SODIUM 147 MMOL/L (136-145)
[2018-02-12 07:28] LABS: ANION GAP 0 mmol/L (5-15); CARBON DIOXIDE 43 MMOL/L (21-32); CHLORIDE 104 MMOL/L (98-107)
[2018-02-12] MEDS: Piperacillin/Tazobactam 3.375 GM in D5W 110 ML IVPB SCH (09:00)
--- NOTE | 2018-02-12 09:41 | Diagnostic Imaging Report ---
EXAM: XR Chest, 1 View CLINICAL HISTORY: Shortness of breath TECHNIQUE: Frontal view of the chest. COMPARISON: Chest x-ray dated 02/10/18 FINDINGS: Lungs: No significant change in diffuse reticular interstitial and alveolar opacities in bilateral lungs. Pleural space: No significant change in small bilateral pleural effusions, left greater right. Heart: Unremarkable. No cardiomegaly. Mediastinum: Unremarkable. Bones/joints: Unremarkable. Tubes, lines and devices: Stable positioning of the endotracheal tube and nasogastric tube. Stable positioning of the left-sided PICC with catheter tip in the SVC region. EKG leads overlie the thorax. IMPRESSION: 1. No significant change in diffuse reticular interstitial and alveolar opacities in bilateral lungs. 2. No significant change in small bilateral pleural effusions, left greater right.
--- NOTE | 2018-02-12 10:00 | General Progress Note ---
Assessment/Plan Assessment/Plan hepatitis panel reviewed >> active Hep A infection anemia work up reviewed >> folate and iron deficiency recent KUB >> no acute findings Dysphagia NGTF patient DNR now OB stool r/o GI bleed uncollected monitor H&H, prn transfusions constipation - bowel regime >> lactulose TID ppi folate fu labs poor prognosis dc laxative Subjective ROS Limited/Unobtainable: No Allergies: Coded Allergies: No Known Allergies (Unverified , 01/24/18) Objective Last 24 Hour Vital Signs Date Time Temp Pulse Resp B/P (MAP) Pulse Ox O2 Delivery O2 Flow Rate FiO2 02/12/18 09:30 95 02/12/18 09:00 119 26 114/63 (80) 87 02/12/18 08:41 96 32 100 02/12/18 08:00 110 27 123/66 (85) 94 02/12/18 07:18 110 31 100 Mechanical Ventilator 100 02/12/18 07:08 115 31 100 Mechanical Ventilator 100 02/12/18 07:00 110 20 88/50 (63) 99 02/12/18 06:55 115 31 100 02/12/18 06:00 96 20 131/62 (85) 99 02/12/18 05:09 107 33 100 02/12/18 05:00 96 20 128/67 (87) 99 02/12/18 04:00 Mechanical Ventilator 02/12/18 04:00 100 02/12/18 04:00 98.4 106 20 118/61 (80) 99 02/12/18 04:00 109 02/12/18 03:30 107 22 98/52 (67) 99 02/12/18 03:15 102 23 110/59 (76) 96 02/12/18 03:00 109 24 111/59 (76) 95 02/12/18 02:47 88 35 100 02/12/18 02:45 112 22 130/74 (92) 94 02/12/18 02:30 112 24 139/70 (93) 97 02/12/18 02:15 109 23 147/71 (96) 95 02/12/18 02:00 147/71 02/12/18 02:00 85 23 117/60 (79) 99 02/12/18 01:45 82 20 123/69 (87) 97 02/12/18 01:30 95 27 129/67 (87) 100 02/12/18 01:15 107 30 118/56 (76) 100 02/12/18 01:00 80 29 125/57 (79) 99 02/12/18 01:00 78 30 99 Mechanical Ventilator 100 02/12/18 01:00 118/56 02/12/18 00:45 95 28 134/65 (88) 98 02/12/18 00:44 81 30 96 Mechanical Ventilator 100 02/12/18 00:44 78 30 100 02/12/18 00:30 77 24 112/54 (73) 96 02/12/18 00:15 86 24 142/54 (83) 97 02/12/18 00:00 Mechanical Ventilator 02/12/18 00:00 98.6 82 20 126/41 (69) 99 02/12/18 00:00 142/54 02/12/18 00:00 90 02/11/18 23:45 105 24 124/59 (80) 97 02/11/18 23:30 83 20 126/60 (82) 100 02/11/18 23:15 111 24 139/58 (85) 100 02/11/18 23:08 81 34 100 02/11/18 23:00 139/58 02/11/18 23:00 80 26 115/53 (73) 100 02/11/18 22:45 81 26 118/58 (78) 100 02/11/18 22:30 80 21 113/55 (74) 100 02/11/18 22:15 96 25 129/65 (86) 100 02/11/18 22:00 129/65 02/11/18 22:00 79 21 126/61 (82) 98 18 21:45 80 19 117/68 (84) 98 02/11/18 21:30 79 21 115/59 (77) 98 18 21:15 81 21 119/57 (77) 97 02/11/18 21:01 84 34 100 02/11/18 21:00 81 21 121/56 (77) 98 18 21:00 119/57 02/11/18 20:45 96 21 122/61 (81) 99 02/11/18 20:30 81 19 120/62 (81) 100 02/11/18 20:15 80 19 110/52 (71) 100 02/11/18 20:00 Mechanical Ventilator 02/11/18 20:00 98.4 82 17 105/50 (68) 100 02/11/18 20:00 81 02/11/18 20:00 110/52 02/11/18 20:00 100 02/11/18 19:00 79 17 103/49 (67) 100 02/11/18 19:00 117/54 02/11/18 18:50 79 33 100 Mechanical Ventilator 100 02/11/18 18:39 79 32 99 Mechanical Ventilator 100 02/11/18 18:34 79 32 100 02/11/18 18:30 77 21 108/51 (70) 98 02/11/18 18:15 80 21 111/53 (72) 97 02/11/18 18:00 80 21 111/51 (71) 97 02/11/18 18:00 111/51 02/11/18 17:45 80 20 122/57 (78) 97 02/11/18 17:30 81 21 130/58 (82) 98 02/11/18 17:15 81 20 141/60 (87) 97 02/11/18 17:09 81 34 100 02/11/18 17:00 121/57 02/11/18 17:00 110 21 137/68 (91) 99 02/11/18 16:30 109 30 120/59 (79) 100 02/11/18 16:02 83 02/11/18 16:00 98.6 83 18 120/55 (76) 100 02/11/18 16:00 Mechanical Ventilator 02/11/18 16:00 120/50 02/11/18 15:30 86 20 121/51 (74) 98 18 15:12 100 02/11/18 15:00 82 27 146/66 (92) 87 02/11/18 15:00 146/65 02/11/18 14:45 85 22 140/121 (127) 94 02/11/18 14:45 85 35 100 02/11/18 14:30 111 21 127/51 (76) 96 02/11/18 14:00 120/47 02/11/18 14:00 84 22 121/54 (76) 97 02/11/18 13:51 80 02/11/18 13:30 78 21 103/47 (65) 97 02/11/18 13:01 95/42 02/11/18 13:00 98.5 83 20 104/49 (67) 100 02/11/18 12:46 94 36 96 Mechanical Ventilator 100 02/11/18 12:44 80 35 100 02/11/18 12:40 97 36 95 Mechanical Ventilator 100 02/11/18 12:00 100 02/11/18 12:00 81 21 107/49 (68) 99 02/11/18 12:00 107/49 02/11/18 12:00 Mechanical Ventilator 02/11/18 11:57 90 02/11/18 11:45 83 16 105/58 (74) 98 02/11/18 11:30 88 25 120/55 (76) 100 02/11/18 11:00 88 24 115/49 (71) 98 02/11/18 11:00 115/49 02/11/18 10:57 106 31 100 02/11/18 10:45 83 20 113/51 (71) 99 02/11/18 10:30 83 20 107/51 (69) 98 02/11/18 10:15 85 22 120/51 (74) 98 02/11/18 10:00 83 21 119/52 (74) 98 02/11/18 10:00 120/51 Intake and Output 02/11/18 02/12/18 18:59 06:59 Intake Total 1561.640 ml 1852.328 ml Output Total 440 ml 390 ml Balance 1121.640 ml 1462.328 ml Free Water 100 ml IV Total 1541.640 ml 1412.328 ml Tube Feeding 20 ml 280 ml Other 60 ml Output Urine Total 440 ml 390 ml # Bowel Movements 1 Laboratory Tests 02/12/18 05:43: White Blood Count 8.9, Red Blood Count 2.51L, Hemoglobin 8.0L, Hematocrit 25.1L , Mean Corpuscular Volume 100H, Mean Corpuscular Hemoglobin 31.7H, Mean Corpuscular Hemoglobin Concent 31.7L, Red Cell Distribution Width 14.0, Platelet Count 202, Mean Platelet Volume 7.6, Neutrophils (%) (Auto) , Lymphocytes (%) (Auto) , Monocytes (%) (Auto) , Eosinophils (%) (Auto) , Basophils (%) (Auto) , Differential Total Cells Counted 100, Neutrophils % ( Manual) 92H, Lymphocytes % (Manual) 6L, Monocytes % (Manual) 2, Eosinophils % ( Manual) 0, Basophils % (Manual) 0, Band Neutrophils 0, Platelet Estimate Adequate, Platelet Morphology Normal, Hypochromasia 1+, Anisocytosis 1+, Macrocytosis 1+, Sodium Level 147H, Potassium Level 4.3, Chloride Level 104, Carbon Dioxide Level 43*H, Anion Gap 0L, Blood Urea Nitrogen 92H, Creatinine 2.6H, Estimat Glomerular Filtration Rate , Glucose Level 163H, Lactic Acid Level 2.30H, Uric Acid 7.4H, Calcium Level 7.3L, Phosphorus Level 4.0, Magnesium Level 2.6H, Total Bilirubin 0.5, Gamma Glutamyl Transpeptidase 7, Aspartate Amino Transf (AST/SGOT) 21, Alanine Aminotransferase (ALT/SGPT) 20, Alkaline Phosphatase 49, Ammonia 26, Total Creatine Kinase 57, Troponin I 0.073H , Pro-B-Type Natriuretic Peptide 74884B, Total Protein 5.5L, Albumin 1.7L, Globulin 3.8, Albumin/Globulin Ratio 0.4L 02/12/18 08:44: Arterial Blood pH 7.340L, Arterial Blood Partial Pressure CO2 83.2*H, Arterial Blood Partial Pressure O2 52.8L, Arterial Blood HCO3 44.6*H, Arterial Blood Oxygen Saturation 84.9*L, Arterial Blood Base Excess 16.3*H, Dima Test Positive Height (Feet): 5 Height (Inches): 9.00 Weight (Pounds): 166 General Appearance: lethargic EENT: normal ENT inspection Neck: supple Cardiovascular: tachycardia Respiratory/Chest: decreased breath sounds Abdomen: normal bowel sounds, non tender, soft Extremities: non-tender Peter Salgado MD Feb 12, 2018 10:00
[2018-02-12] MEDS: Pantoprazole Inj IVP SCH (10:13)
[2018-02-12] MEDS: Heparin 5000 units/ml inj SUBQ SCH (10:21)
--- NOTE | 2018-02-12 11:04 | Infectious Diseases Prog Note ---
Assessment/Plan Assessment/Plan antibiotics : none A 1. pseudomonas pneumonia 2. shock 3. respiratory failure 4. hepatitis A 5. renal failure 6. pulmonary fibrosis 7. pulmonary hypertension P 1. d/c zosyn 2. start meropenem 3. will follow up cultures Subjective ROS Limited/Unobtainable: Yes Allergies: Coded Allergies: No Known Allergies (Unverified , 01/24/18) Objective Vital Signs Last 24 Hour Vital Signs Date Time Temp Pulse Resp B/P (MAP) Pulse Ox O2 Delivery O2 Flow Rate FiO2 02/12/18 10:33 100 34 100 02/12/18 09:30 95 02/12/18 09:00 119 26 114/63 (80) 87 02/12/18 08:41 96 32 100 02/12/18 08:00 110 27 123/66 (85) 94 02/12/18 07:18 110 31 100 Mechanical Ventilator 100 02/12/18 07:08 115 31 100 Mechanical Ventilator 100 02/12/18 07:00 110 20 88/50 (63) 99 02/12/18 06:55 115 31 100 02/12/18 06:00 96 20 131/62 (85) 99 02/12/18 05:09 107 33 100 02/12/18 05:00 96 20 128/67 (87) 99 02/12/18 04:00 Mechanical Ventilator 02/12/18 04:00 100 02/12/18 04:00 98.4 106 20 118/61 (80) 99 02/12/18 04:00 109 02/12/18 03:30 107 22 98/52 (67) 99 02/12/18 03:15 102 23 110/59 (76) 96 02/12/18 03:00 109 24 111/59 (76) 95 02/12/18 02:47 88 35 100 02/12/18 02:45 112 22 130/74 (92) 94 02/12/18 02:30 112 24 139/70 (93) 97 02/12/18 02:15 109 23 147/71 (96) 95 02/12/18 02:00 147/71 02/12/18 02:00 85 23 117/60 (79) 99 02/12/18 01:45 82 20 123/69 (87) 97 02/12/18 01:30 95 27 129/67 (87) 100 02/12/18 01:15 107 30 118/56 (76) 100 02/12/18 01:00 80 29 125/57 (79) 99 02/12/18 01:00 78 30 99 Mechanical Ventilator 100 02/12/18 01:00 118/56 02/12/18 00:45 95 28 134/65 (88) 98 02/12/18 00:44 81 30 96 Mechanical Ventilator 100 02/12/18 00:44 78 30 100 02/12/18 00:30 77 24 112/54 (73) 96 02/12/18 00:15 86 24 142/54 (83) 97 02/12/18 00:00 Mechanical Ventilator 02/12/18 00:00 98.6 82 20 126/41 (69) 99 02/12/18 00:00 142/54 02/12/18 00:00 90 02/11/18 23:45 105 24 124/59 (80) 97 02/11/18 23:30 83 20 126/60 (82) 100 02/11/18 23:15 111 24 139/58 (85) 100 02/11/18 23:08 81 34 100 02/11/18 23:00 139/58 02/11/18 23:00 80 26 115/53 (73) 100 02/11/18 22:45 81 26 118/58 (78) 100 02/11/18 22:30 80 21 113/55 (74) 100 02/11/18 22:15 96 25 129/65 (86) 100 02/11/18 22:00 129/65 02/11/18 22:00 79 21 126/61 (82) 98 02/11/18 21:45 80 19 117/68 (84) 98 02/11/18 21:30 79 21 115/59 (77) 98 18 21:15 81 21 119/57 (77) 97 02/11/18 21:01 84 34 100 02/11/18 21:00 81 21 121/56 (77) 98 18 21:00 119/57 02/11/18 20:45 96 21 122/61 (81) 99 02/11/18 20:30 81 19 120/62 (81) 100 02/11/18 20:15 80 19 110/52 (71) 100 02/11/18 20:00 Mechanical Ventilator 12/22/18 20:00 98.4 82 17 105/50 (68) 100 02/11/18 20:00 81 02/11/18 20:00 110/52 02/11/18 20:00 100 02/11/18 19:00 79 17 103/49 (67) 100 02/11/18 19:00 117/54 02/11/18 18:50 79 33 100 Mechanical Ventilator 100 02/11/18 18:39 79 32 99 Mechanical Ventilator 100 02/11/18 18:34 79 32 100 02/11/18 18:30 77 21 108/51 (70) 98 02/11/18 18:15 80 21 111/53 (72) 97 02/11/18 18:00 80 21 111/51 (71) 97 02/11/18 18:00 111/51 02/11/18 17:45 80 20 122/57 (78) 97 02/11/18 17:30 81 21 130/58 (82) 98 02/11/18 17:15 81 20 141/60 (87) 97 02/11/18 17:09 81 34 100 02/11/18 17:00 121/57 02/11/18 17:00 110 21 137/68 (91) 99 02/11/18 16:30 109 30 120/59 (79) 100 02/11/18 16:02 83 02/11/18 16:00 98.6 83 18 120/55 (76) 100 02/11/18 16:00 Mechanical Ventilator 02/11/18 16:00 120/50 02/11/18 15:30 86 20 121/51 (74) 98 02/11/18 15:12 100 02/11/18 15:00 82 27 146/66 (92) 87 02/11/18 15:00 146/65 02/11/18 14:45 85 22 140/121 (127) 94 02/11/18 14:45 85 35 100 02/11/18 14:30 111 21 127/51 (76) 96 02/11/18 14:00 120/47 02/11/18 14:00 84 22 121/54 (76) 97 02/11/18 13:51 80 02/11/18 13:30 78 21 103/47 (65) 97 02/11/18 13:01 95/42 12/22/18 13:00 98.5 83 20 104/49 (67) 100 02/11/18 12:46 94 36 96 Mechanical Ventilator 100 02/11/18 12:44 80 35 100 02/11/18 12:40 97 36 95 Mechanical Ventilator 100 02/11/18 12:00 100 02/11/18 12:00 81 21 107/49 (68) 99 02/11/18 12:00 107/49 02/11/18 12:00 Mechanical Ventilator 02/11/18 11:57 90 02/11/18 11:45 83 16 105/58 (74) 98 02/11/18 11:30 88 25 120/55 (76) 100 Height (Feet): 5 Height (Inches): 9.00 Weight (Pounds): 166 HEENT: other - intubated Respiratory/Chest: lungs clear Cardiovascular: normal rate, regular rhythm, no gallop/murmur Abdomen: soft, non tender Extremities: other - + edema Microbiology Date/Time Source Procedure Growth Status 02/09/18 17:00 Sputum Gram Stain - Final Complete 02/09/18 17:00 Sputum Culture - Final Pseudomonas Aeruginosa Complete 02/10/18 23:00 Urine,Clean Catch Urine Culture - Preliminary Resulted Laboratory Tests Test 02/12/18 05:43 02/12/18 08:44 White Blood Count 8.9 K/UL (4.8-10.8) Red Blood Count 2.51 M/UL (4.70-6.10) L Hemoglobin 8.0 G/DL (14.2-18.0) L Hematocrit 25.1 % (42.0-52.0) L Mean Corpuscular Volume 100 FL (80-99) H Mean Corpuscular Hemoglobin 31.7 PG (27.0-31.0) H Mean Corpuscular Hemoglobin Concent 31.7 G/DL (32.0-36.0) L Red Cell Distribution Width 14.0 % (11.6-14.8) Platelet Count 202 K/UL (150-450) Mean Platelet Volume 7.6 FL (6.5-10.1) Neutrophils (%) (Auto) % (45.0-75.0) Lymphocytes (%) (Auto) % (20.0-45.0) Monocytes (%) (Auto) % (1.0-10.0) Eosinophils (%) (Auto) % (0.0-3.0) Basophils (%) (Auto) % (0.0-2.0) Differential Total Cells Counted 100 Neutrophils % (Manual) 92 % (45-75) H Lymphocytes % (Manual) 6 % (20-45) L Monocytes % (Manual) 2 % (1-10) Eosinophils % (Manual) 0 % (0-3) Basophils % (Manual) 0 % (0-2) Band Neutrophils 0 % (0-8) Platelet Estimate Adequate Platelet Morphology Normal Hypochromasia 1+ Anisocytosis 1+ Macrocytosis 1+ Sodium Level 147 MMOL/L (136-145) H Potassium Level 4.3 MMOL/L (3.5-5.1) Chloride Level 104 MMOL/L (98-107) Carbon Dioxide Level 43 MMOL/L (21-32) *H Anion Gap 0 mmol/L (5-15) L Blood Urea Nitrogen 92 mg/dL (7-18) H Creatinine 2.6 MG/DL (0.55-1.30) H Estimat Glomerular Filtration Rate mL/min (>60) Glucose Level 163 MG/DL (74-106) H Lactic Acid Level 2.30 mmol/L (0.4-2.0) H Uric Acid 7.4 MG/DL (2.6-7.2) H Calcium Level 7.3 MG/DL (8.5-10.1) L Phosphorus Level 4.0 MG/DL (2.5-4.9) Magnesium Level 2.6 MG/DL (1.8-2.4) H Total Bilirubin 0.5 MG/DL (0.2-1.0) Gamma Glutamyl Transpeptidase 7 U/L (5-85) Aspartate Amino Transf (AST/SGOT) 21 U/L (15-37) Alanine Aminotransferase (ALT/SGPT) 20 U/L (12-78) Alkaline Phosphatase 49 U/L (46-116) Ammonia 26 umol/L (11-32) Total Creatine Kinase 57 U/L (26-308) Troponin I 0.073 ng/mL (0.000-0.056) Pro-B-Type Natriuretic Peptide 18831 pg/mL (0-125) H Total Protein 5.5 G/DL (6.4-8.2) L Albumin 1.7 G/DL (3.4-5.0) L Globulin 3.8 g/dL Albumin/Globulin Ratio 0.4 (1.0-2.7) L Arterial Blood pH 7.340 (7.350-7.450) Arterial Blood Partial Pressure CO2 83.2 mmHg (35.0-45.0) *H Arterial Blood Partial Pressure O2 52.8 mmHg (75.0-100.0) L Arterial Blood HCO3 44.6 mmol/L (22.0-26.0) *H Arterial Blood Oxygen Saturation 84.9 % (95-100) *L Arterial Blood Base Excess 16.3 (-2-2) *H Dima Test Positive Current Medications Medications (Trade) Dose Ordered Sig/Chaka Route PRN Reason Start Time Stop Time Status Last Admin Dose Admin Acetaminophen (Tylenol) 650 mg PRN PRN RECTAL Prn Headache/Temp > 101 01/26/18 22:15 02/23/18 22:14 01/28/18 20:35 Albuterol/ Ipratropium (Albuterol/ Ipratropium) 3 ml Q6HRT HHN 02/08/18 01:00 02/13/18 00:59 02/12/18 07:08 Chlorhexidine Gluconate (Cathi-Hex 2%) 1 applic DAILY@2000 TOPIC 02/10/18 20:00 03/12/18 19:59 02/11/18 20:45 Dopamine HCl/ Dextrose 250 ml @ 0 mls/hr Q24H IV 02/10/18 18:00 03/12/18 17:59 02/11/18 13:01 Heparin Sodium (Porcine) (Heparin 5000 units/ml) 5,000 units EVERY 12 HOURS SUBQ 01/27/18 21:00 02/26/18 20:59 02/12/18 10:21 Hydrocortisone (Solu-CORTEF) 100 mg EVERY 8 HOURS IV 02/11/18 14:00 03/13/18 13:59 02/12/18 06:48 Midazolam HCl (Versed 2mg/2ml vial) 2 mg EVERY 4 HOURS PRN IVP For Anxiety 01/26/18 10:00 02/25/18 09:59 02/12/18 02:52 Norepinephrine Bitartrate 4 mg/ Dextrose 250 ml @ 0 mls/hr Q24H IV 02/10/18 18:00 03/12/18 17:59 Ondansetron HCl (Zofran) 4 mg Q6H PRN IVP Nausea & Vomiting 01/26/18 22:15 02/25/18 22:14 Pantoprazole (Protonix) 40 mg DAILY IVP 02/11/18 15:00 03/13/18 14:59 02/12/18 10:13 Piperacillin Sod/ Tazobactam Sod 3.375 gm/Dextrose 110 ml @ 27.5 mls/hr EVERY 12 HOURS IVPB 02/11/18 21:00 02/16/18 11:59 02/12/18 09:00 Sodium Bicarbonate 150 ml/Dextrose 1,150 ml @ 100 mls/hr [id number] IV 02/10/18 22:30 03/12/18 22:29 02/12/18 07:01 Nhan Miguel MD Feb 12, 2018 11:04
[2018-02-12] MEDS: Meropenem 500 MG in NS 55 ML IVPB SCH ×2 (12:00→23:37)
--- NOTE | 2018-02-12 13:26 | Nephrology Progress Note ---
Assessment/Plan Problem List: (1) OLEG (acute kidney injury) Assessment: Cr rising (2) Respiratory disorder with ventilator dependence (3) Abnormal LFTs (4) Lactic acid acidosis (5) UTI (urinary tract infection) (6) Pulmonary fibrosis Assessment Acute renal failure, resolved high K resolved Pneumonia / Sepsis / Hypoxia / UTI HypoAlbuminemia / Proteinuria Acute respiratory failure Pulmonary fibrosis Lactic acidosis Plan STOP ALL PSYCH AND MIND ALTERING MEDS DOING POORLY change IV to D5 Hold all bp meds- on pressors albumin bolus as needed Pulm support / on vent IV antibiotics Watch electrolytes Gastric support Per orders DNR now adjust meds for kidney failure Subjective ROS Limited/Unobtainable: Yes Objective Objective Last 24 Hour Vital Signs Date Time Temp Pulse Resp B/P (MAP) Pulse Ox O2 Delivery O2 Flow Rate FiO2 02/12/18 12:55 158 34 100 02/12/18 12:54 Mechanical Ventilator 02/12/18 12:53 158 Mechanical Ventilator 100 02/12/18 10:33 100 34 100 02/12/18 09:30 95 02/12/18 09:00 119 26 114/63 (80) 87 02/12/18 08:41 96 32 100 02/12/18 08:00 110 27 123/66 (85) 94 02/12/18 08:00 Mechanical Ventilator 02/12/18 07:18 110 31 100 Mechanical Ventilator 100 02/12/18 07:08 115 31 100 Mechanical Ventilator 100 02/12/18 07:00 110 20 88/50 (63) 99 02/12/18 06:55 115 31 100 02/12/18 06:00 96 20 131/62 (85) 99 02/12/18 05:09 107 33 100 02/12/18 05:00 96 20 128/67 (87) 99 02/12/18 04:00 Mechanical Ventilator 02/12/18 04:00 100 02/12/18 04:00 98.4 106 20 118/61 (80) 99 02/12/18 04:00 109 02/12/18 03:30 107 22 98/52 (67) 99 02/12/18 03:15 102 23 110/59 (76) 96 02/12/18 03:00 109 24 111/59 (76) 95 02/12/18 02:47 88 35 100 02/12/18 02:45 112 22 130/74 (92) 94 02/12/18 02:30 112 24 139/70 (93) 97 02/12/18 02:15 109 23 147/71 (96) 95 02/12/18 02:00 147/71 02/12/18 02:00 85 23 117/60 (79) 99 02/12/18 01:45 82 20 123/69 (87) 97 02/12/18 01:30 95 27 129/67 (87) 100 02/12/18 01:15 107 30 118/56 (76) 100 02/12/18 01:00 80 29 125/57 (79) 99 02/12/18 01:00 78 30 99 Mechanical Ventilator 100 02/12/18 01:00 118/56 02/12/18 00:45 95 28 134/65 (88) 98 02/12/18 00:44 81 30 96 Mechanical Ventilator 100 02/12/18 00:44 78 30 100 02/12/18 00:30 77 24 112/54 (73) 96 02/12/18 00:15 86 24 142/54 (83) 97 02/12/18 00:00 Mechanical Ventilator 02/12/18 00:00 98.6 82 20 126/41 (69) 99 02/12/18 00:00 142/54 02/12/18 00:00 90 02/11/18 23:45 105 24 124/59 (80) 97 02/11/18 23:30 83 20 126/60 (82) 100 02/11/18 23:15 111 24 139/58 (85) 100 02/11/18 23:08 81 34 100 02/11/18 23:00 139/58 02/11/18 23:00 80 26 115/53 (73) 100 18 22:45 81 26 118/58 (78) 100 02/11/18 22:30 80 21 113/55 (74) 100 02/11/18 22:15 96 25 129/65 (86) 100 02/11/18 22:00 129/65 02/11/18 22:00 79 21 126/61 (82) 98 02/11/18 21:45 80 19 117/68 (84) 98 02/11/18 21:30 79 21 115/59 (77) 98 02/11/18 21:15 81 21 119/57 (77) 97 02/11/18 21:01 84 34 100 02/11/18 21:00 81 21 121/56 (77) 98 02/11/18 21:00 119/57 02/11/18 20:45 96 21 122/61 (81) 99 02/11/18 20:30 81 19 120/62 (81) 100 02/11/18 20:15 80 19 110/52 (71) 100 02/11/18 20:00 Mechanical Ventilator 02/11/18 20:00 98.4 82 17 105/50 (68) 100 02/11/18 20:00 81 02/11/18 20:00 110/52 02/11/18 20:00 100 02/11/18 19:00 79 17 103/49 (67) 100 02/11/18 19:00 117/54 02/11/18 18:50 79 33 100 Mechanical Ventilator 100 02/11/18 18:39 79 32 99 Mechanical Ventilator 100 02/11/18 18:34 79 32 100 02/11/18 18:30 77 21 108/51 (70) 98 02/11/18 18:15 80 21 111/53 (72) 97 02/11/18 18:00 80 21 111/51 (71) 97 02/11/18 18:00 111/51 02/11/18 17:45 80 20 122/57 (78) 97 02/11/18 17:30 81 21 130/58 (82) 98 02/11/18 17:15 81 20 141/60 (87) 97 02/11/18 17:09 81 34 100 02/11/18 17:00 121/57 02/11/18 17:00 110 21 137/68 (91) 99 02/11/18 16:30 109 30 120/59 (79) 100 02/11/18 16:02 83 02/11/18 16:00 98.6 83 18 120/55 (76) 100 02/11/18 16:00 Mechanical Ventilator 02/11/18 16:00 120/50 02/11/18 15:30 86 20 121/51 (74) 98 02/11/18 15:12 100 02/11/18 15:00 82 27 146/66 (92) 87 02/11/18 15:00 146/65 02/11/18 14:45 85 22 140/121 (127) 94 02/11/18 14:45 85 35 100 02/11/18 14:30 111 21 127/51 (76) 96 02/11/18 14:00 120/47 02/11/18 14:00 84 22 121/54 (76) 97 02/11/18 13:51 80 02/11/18 13:30 78 21 103/47 (65) 97 Intake and Output 02/11/18 02/12/18 19:00 07:00 Intake Total 1584.431 ml 1869.537 ml Output Total 420 ml 430 ml Balance 1164.431 ml 1439.537 ml Free Water 100 ml IV Total 1554.431 ml 1399.537 ml Tube Feeding 30 ml 310 ml Other 60 ml Output Urine Total 420 ml 430 ml # Bowel Movements 1 Current Medications Medications (Trade) Dose Ordered Sig/Chaka Route PRN Reason Start Time Stop Time Status Last Admin Dose Admin Acetaminophen (Tylenol) 650 mg PRN PRN RECTAL Prn Headache/Temp > 101 01/26/18 22:15 02/23/18 22:14 01/28/18 20:35 Albuterol/ Ipratropium (Albuterol/ Ipratropium) 3 ml Q6HRT HHN 02/08/18 01:00 02/13/18 00:59 02/12/18 07:08 Chlorhexidine Gluconate (Cathi-Hex 2%) 1 applic DAILY@2000 TOPIC 02/10/18 20:00 03/12/18 19:59 02/11/18 20:45 Dopamine HCl/ Dextrose 250 ml @ 0 mls/hr Q24H IV 02/10/18 18:00 03/12/18 17:59 02/11/18 13:01 Heparin Sodium (Porcine) (Heparin 5000 units/ml) 5,000 units EVERY 12 HOURS SUBQ 01/27/18 21:00 02/26/18 20:59 02/12/18 10:21 Hydrocortisone (Solu-CORTEF) 100 mg EVERY 8 HOURS IV 02/11/18 14:00 03/13/18 13:59 02/12/18 06:48 Meropenem 500 mg/ Sodium Chloride 55 ml @ 110 mls/hr Q12H IVPB 02/12/18 12:00 02/17/18 11:59 Midazolam HCl (Versed 2mg/2ml vial) 2 mg EVERY 4 HOURS PRN IVP For Anxiety 01/26/18 10:00 02/25/18 09:59 02/12/18 02:52 Norepinephrine Bitartrate 4 mg/ Dextrose 250 ml @ 0 mls/hr Q24H IV 02/10/18 18:00 03/12/18 17:59 Ondansetron HCl (Zofran) 4 mg Q6H PRN IVP Nausea & Vomiting 01/26/18 22:15 02/25/18 22:14 Pantoprazole (Protonix) 40 mg DAILY IVP 02/11/18 15:00 03/13/18 14:59 02/12/18 10:13 Sodium Bicarbonate 150 ml/Dextrose 1,150 ml @ 100 mls/hr [id number] IV 02/10/18 22:30 03/12/18 22:29 02/12/18 07:01 Laboratory Tests 02/12/18 05:43: White Blood Count 8.9, Red Blood Count 2.51L, Hemoglobin 8.0L, Hematocrit 25.1L , Mean Corpuscular Volume 100H, Mean Corpuscular Hemoglobin 31.7H, Mean Corpuscular Hemoglobin Concent 31.7L, Red Cell Distribution Width 14.0, Platelet Count 202, Mean Platelet Volume 7.6, Neutrophils (%) (Auto) , Lymphocytes (%) (Auto) , Monocytes (%) (Auto) , Eosinophils (%) (Auto) , Basophils (%) (Auto) , Differential Total Cells Counted 100, Neutrophils % ( Manual) 92H, Lymphocytes % (Manual) 6L, Monocytes % (Manual) 2, Eosinophils % ( Manual) 0, Basophils % (Manual) 0, Band Neutrophils 0, Platelet Estimate Adequate, Platelet Morphology Normal, Hypochromasia 1+, Anisocytosis 1+, Macrocytosis 1+, Sodium Level 147H, Potassium Level 4.3, Chloride Level 104, Carbon Dioxide Level 43*H, Anion Gap 0L, Blood Urea Nitrogen 92H, Creatinine 2.6H, Estimat Glomerular Filtration Rate , Glucose Level 163H, Lactic Acid Level 2.30H, Uric Acid 7.4H, Calcium Level 7.3L, Phosphorus Level 4.0, Magnesium Level 2.6H, Total Bilirubin 0.5, Gamma Glutamyl Transpeptidase 7, Aspartate Amino Transf (AST/SGOT) 21, Alanine Aminotransferase (ALT/SGPT) 20, Alkaline Phosphatase 49, Ammonia 26, Total Creatine Kinase 57, Troponin I 0.073H , Pro-B-Type Natriuretic Peptide [id number], Total Protein 5.5L, Albumin 1.7L, Globulin 3.8, Albumin/Globulin Ratio 0.4L 02/12/18 08:44: Arterial Blood pH 7.340L, Arterial Blood Partial Pressure CO2 83.2*H, Arterial Blood Partial Pressure O2 52.8L, Arterial Blood HCO3 44.6*H, Arterial Blood Oxygen Saturation 84.9*L, Arterial Blood Base Excess 16.3*H, Dima Test Positive Height (Feet): 5 Height (Inches): 9.00 Weight (Pounds): 166 EENT: other - vented Cardiovascular: tachycardia Respiratory/Chest: decreased breath sounds Abdomen: distended Objective no change Juan C Mclaughlin MD Feb 12, 2018 13:26
--- NOTE | 2018-02-12 13:56 | Cardiology Report ---
APPROVED REPORT EXAM: Two-dimensional and M-mode echocardiogram with Doppler and color Doppler. INDICATION Congestive Heart Failure M-Mode DIMENSIONS IVSd1.3 (0.7-1.1cm)Left Atrium (MM)2.8 (1.6-4.0cm) LVDd3.9 (3.5-5.6cm)Aortic Root4.0 (2.0-3.7cm) PWd1.2 (0.7-1.1cm)Aortic Cusp Exc.2.1 (1.5-2.0cm) LVDs1.8 (2.5-4.0cm) PWs1.8 cm Technically difficult study due to patient on ventilator. Study quality precludes accurate assessment of regional wall motion. Normal left ventricular chamber size, systolic function and wall motion. Left ventricular ejection fraction estimated to be 60 %. Mild left ventricular hypertrophy. pleural effusion. All other cardiac chamber sizes are within normal limits. Focal aortic valve sclerosis with adequate cusp excursion. Mildly thickened mitral valve leaflets with normal excursion. Mild mitral annulus and aortic root calcification. Normal pulmonic valve structure. Normal tricuspid valve structure. IVC dilated at 2.4 cm with partial physiological collapse, suggestive of increased RA pressure. A color flow and spectral Doppler study was performed and revealed: No aortic insufficiency. Mild mitral regurgitation. Mitral diastolic velocities suggest mild left ventricular diastolic dysfunction (Grade I). Moderate tricuspid regurgitation. Tricuspid systolic velocities suggests peak right ventricular systolic pressure of 90-100 mmHg, consistent with severe pulmonary hypertension. No pulmonic regurgitation present.
--- NOTE | 2018-02-12 14:00 | General Surgery Progress Note ---
General Surgery-Progress Note Subjective Additional Comments still critically ill. cannot wean vent Objective Last 24 Hour Vital Signs Date Time Temp Pulse Resp B/P (MAP) Pulse Ox O2 Delivery O2 Flow Rate FiO2 02/12/18 12:55 158 34 100 02/12/18 12:54 Mechanical Ventilator 02/12/18 12:53 158 Mechanical Ventilator 100 02/12/18 10:33 100 34 100 02/12/18 09:30 95 02/12/18 09:00 119 26 114/63 (80) 87 02/12/18 08:41 96 32 100 02/12/18 08:00 110 27 123/66 (85) 94 02/12/18 08:00 Mechanical Ventilator 02/12/18 07:18 110 31 100 Mechanical Ventilator 100 02/12/18 07:08 115 31 100 Mechanical Ventilator 100 02/12/18 07:00 110 20 88/50 (63) 99 02/12/18 06:55 115 31 100 02/12/18 06:00 96 20 131/62 (85) 99 02/12/18 05:09 107 33 100 02/12/18 05:00 96 20 128/67 (87) 99 02/12/18 04:00 Mechanical Ventilator 02/12/18 04:00 100 02/12/18 04:00 98.4 106 20 118/61 (80) 99 02/12/18 04:00 109 02/12/18 03:30 107 22 98/52 (67) 99 02/12/18 03:15 102 23 110/59 (76) 96 02/12/18 03:00 109 24 111/59 (76) 95 02/12/18 02:47 88 35 100 02/12/18 02:45 112 22 130/74 (92) 94 02/12/18 02:30 112 24 139/70 (93) 97 02/12/18 02:15 109 23 147/71 (96) 95 02/12/18 02:00 147/71 02/12/18 02:00 85 23 117/60 (79) 99 02/12/18 01:45 82 20 123/69 (87) 97 02/12/18 01:30 95 27 129/67 (87) 100 02/12/18 01:15 107 30 118/56 (76) 100 02/12/18 01:00 80 29 125/57 (79) 99 02/12/18 01:00 78 30 99 Mechanical Ventilator 100 02/12/18 01:00 118/56 02/12/18 00:45 95 28 134/65 (88) 98 02/12/18 00:44 81 30 96 Mechanical Ventilator 100 02/12/18 00:44 78 30 100 02/12/18 00:30 77 24 112/54 (73) 96 02/12/18 00:15 86 24 142/54 (83) 97 02/12/18 00:00 Mechanical Ventilator 02/12/18 00:00 98.6 82 20 126/41 (69) 99 02/12/18 00:00 142/54 02/12/18 00:00 90 02/11/18 23:45 105 24 124/59 (80) 97 02/11/18 23:30 83 20 126/60 (82) 100 02/11/18 23:15 111 24 139/58 (85) 100 02/11/18 23:08 81 34 100 02/11/18 23:00 139/58 02/11/18 23:00 80 26 115/53 (73) 100 02/11/18 22:45 81 26 118/58 (78) 100 02/11/18 22:30 80 21 113/55 (74) 100 02/11/18 22:15 96 25 129/65 (86) 100 02/11/18 22:00 129/65 02/11/18 22:00 79 21 126/61 (82) 98 02/11/18 21:45 80 19 117/68 (84) 98 02/11/18 21:30 79 21 115/59 (77) 98 18 21:15 81 21 119/57 (77) 97 18 21:01 84 34 100 02/11/18 21:00 81 21 121/56 (77) 98 02/11/18 21:00 119/57 02/11/18 20:45 96 21 122/61 (81) 99 02/11/18 20:30 81 19 120/62 (81) 100 02/11/18 20:15 80 19 110/52 (71) 100 02/11/18 20:00 Mechanical Ventilator 02/11/18 20:00 98.4 82 17 105/50 (68) 100 02/11/18 20:00 81 02/11/18 20:00 110/52 02/11/18 20:00 100 02/11/18 19:00 79 17 103/49 (67) 100 02/11/18 19:00 117/54 02/11/18 18:50 79 33 100 Mechanical Ventilator 100 02/11/18 18:39 79 32 99 Mechanical Ventilator 100 02/11/18 18:34 79 32 100 02/11/18 18:30 77 21 108/51 (70) 98 02/11/18 18:15 80 21 111/53 (72) 97 02/11/18 18:00 80 21 111/51 (71) 97 02/11/18 18:00 111/51 02/11/18 17:45 80 20 122/57 (78) 97 02/11/18 17:30 81 21 130/58 (82) 98 02/11/18 17:15 81 20 141/60 (87) 97 02/11/18 17:09 81 34 100 02/11/18 17:00 121/57 02/11/18 17:00 110 21 137/68 (91) 99 02/11/18 16:30 109 30 120/59 (79) 100 02/11/18 16:02 83 02/11/18 16:00 98.6 83 18 120/55 (76) 100 02/11/18 16:00 Mechanical Ventilator 02/11/18 16:00 120/50 02/11/18 15:30 86 20 121/51 (74) 98 02/11/18 15:12 100 02/11/18 15:00 82 27 146/66 (92) 87 02/11/18 15:00 146/65 02/11/18 14:45 85 22 140/121 (127) 94 02/11/18 14:45 85 35 100 02/11/18 14:30 111 21 127/51 (76) 96 I&O Intake and Output 02/11/18 02/12/18 19:00 07:00 Intake Total 1584.431 ml 1869.537 ml Output Total 420 ml 430 ml Balance 1164.431 ml 1439.537 ml Free Water 100 ml IV Total 1554.431 ml 1399.537 ml Tube Feeding 30 ml 310 ml Other 60 ml Output Urine Total 420 ml 430 ml # Bowel Movements 1 Dressing: other Wound: other Drains: other Cardiovascular: other Respiratory: other Abdomen: other Extremities: other Laboratory Tests Test 02/12/18 05:43 02/12/18 08:44 02/12/18 13:50 White Blood Count 8.9 K/UL (4.8-10.8) Red Blood Count 2.51 M/UL (4.70-6.10) L Hemoglobin 8.0 G/DL (14.2-18.0) L Hematocrit 25.1 % (42.0-52.0) L Mean Corpuscular Volume 100 FL (80-99) H Mean Corpuscular Hemoglobin 31.7 PG (27.0-31.0) H Mean Corpuscular Hemoglobin Concent 31.7 G/DL (32.0-36.0) L Red Cell Distribution Width 14.0 % (11.6-14.8) Platelet Count 202 K/UL (150-450) Mean Platelet Volume 7.6 FL (6.5-10.1) Neutrophils (%) (Auto) % (45.0-75.0) Lymphocytes (%) (Auto) % (20.0-45.0) Monocytes (%) (Auto) % (1.0-10.0) Eosinophils (%) (Auto) % (0.0-3.0) Basophils (%) (Auto) % (0.0-2.0) Differential Total Cells Counted 100 Neutrophils % (Manual) 92 % (45-75) H Lymphocytes % (Manual) 6 % (20-45) L Monocytes % (Manual) 2 % (1-10) Eosinophils % (Manual) 0 % (0-3) Basophils % (Manual) 0 % (0-2) Band Neutrophils 0 % (0-8) Platelet Estimate Adequate Platelet Morphology Normal Hypochromasia 1+ Anisocytosis 1+ Macrocytosis 1+ Sodium Level 147 MMOL/L (136-145) H Potassium Level 4.3 MMOL/L (3.5-5.1) Chloride Level 104 MMOL/L (98-107) Carbon Dioxide Level 43 MMOL/L (21-32) *H Anion Gap 0 mmol/L (5-15) L Blood Urea Nitrogen 92 mg/dL (7-18) H Creatinine 2.6 MG/DL (0.55-1.30) H Estimat Glomerular Filtration Rate mL/min (>60) Glucose Level 163 MG/DL (74-106) H Lactic Acid Level 2.30 mmol/L (0.4-2.0) H Pending Uric Acid 7.4 MG/DL (2.6-7.2) H Calcium Level 7.3 MG/DL (8.5-10.1) L Phosphorus Level 4.0 MG/DL (2.5-4.9) Magnesium Level 2.6 MG/DL (1.8-2.4) H Total Bilirubin 0.5 MG/DL (0.2-1.0) Gamma Glutamyl Transpeptidase 7 U/L (5-85) Aspartate Amino Transf (AST/SGOT) 21 U/L (15-37) Alanine Aminotransferase (ALT/SGPT) 20 U/L (12-78) Alkaline Phosphatase 49 U/L (46-116) Ammonia 26 umol/L (11-32) Total Creatine Kinase 57 U/L (26-308) Troponin I 0.073 ng/mL (0.000-0.056) Pro-B-Type Natriuretic Peptide 58642 pg/mL (0-125) H Total Protein 5.5 G/DL (6.4-8.2) L Albumin 1.7 G/DL (3.4-5.0) L Globulin 3.8 g/dL Albumin/Globulin Ratio 0.4 (1.0-2.7) L Arterial Blood pH 7.340 (7.350-7.450) Arterial Blood Partial Pressure CO2 83.2 mmHg (35.0-45.0) *H Arterial Blood Partial Pressure O2 52.8 mmHg (75.0-100.0) L Arterial Blood HCO3 44.6 mmol/L (22.0-26.0) *H Arterial Blood Oxygen Saturation 84.9 % (95-100) *L Arterial Blood Base Excess 16.3 (-2-2) *H Dima Test Positive Plan Problems: (1) Decubitus ulcer of sacral region, stage 3 Assessment & Plan: Stage III full thickness pressure injury sacrum present on admission (L)2cm x (W)1.8cm ,wound bed with 80% yellow slough ,20% granular Borders slightly macerated. Non-blanching erythema without elevation in skin temp, or induration periwound. NO odor noted. Abrasions noted to R elbow (L)3.2cm x (W)1.9cm.Wound with Biofilm ,erythema al; lynn borders .Periwound clean and intact. Abrasion noted to L elbow(L)5.5cm x (W)1.6cm ,biofim noted to wound bed .erythema along borders .Periwound without erythema or elevation in skin temp. Abrasion lateral L knee with dry scab. Abrasion medial R knee with dry scab. Bilat heels boggy with non-blanching erythema. Non-tender when palpated. Pt repositioned with pillow on his side but restless and repositioned self on back. given critical condition will continue with maximal efforts to reduce worsening wounds as in this condition may deteriorate Tx.Plan: Cleanse R and L elbows with Saline.Apply Silvasorb Gel to both elbows .Cover with Optifoam drsg .Change every 3 Days and prn. Cleanse Sacral Pressure injury with Saline.Apply Therahoney .Cavilon periwound.Cover with Optifoam drsg Daily and prn. Apply Cavilon to Both heels.Cover with Optifoam drsg .Change Every 7 days and prn. Cavilon to abrasions R and L lower ext.Cover with Optifoam change every 7 days and prn. Off-load heels with pillow. Reposition at least every 2 hours or as tolerated. Surface support mattress. (2) Abnormal LFTs Assessment & Plan: US reviewed - absent GB dilated ducts CT reviewed - dilated duct without notable obstruction LFT's noted and elevated t bili trending down no jaundice AST/ALT nml Alk phos nml leukocytosis trending down -no acute surgical intervention necessary -t bili and d bili correlate. unlikely obstructive at this time. especially with history of cholecystectomy prior -trend labs thank you (3) Severe sepsis Assessment & Plan: not weaning off vent easy. 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
--- NOTE | 2018-02-12 14:14 | Pulmonolgy Critical Care Note ---
Critical Care - Asmt/Plan Problems: (1) ARDS (adult respiratory distress syndrome) (2) Pulmonary fibrosis (3) Multifocal pneumonia (4) Respiratory disorder with ventilator dependence (5) Lactic acid acidosis (6) Abnormal LFTs (7) OLEG (acute kidney injury) (8) SIRS (systemic inflammatory response syndrome) (9) UTI (urinary tract infection) Assessment/Plan: ASSESSMENT: The patient is a 77-year-old male, current daily smoker with history of hypertension, back pain, lack of health maintenance, presenting with respiratory illness, bilateral pneumonia, lactic acidosis, abnormal kidney function and renal function likely OLEG, and shock liver. 01/26: Prog hypoxemia, inc WOB, tx'd to ICU, intubated 01/27: Gas exchange better, trops downtrending, LA resolved 01/30: Oxygenation stable, stable on vent 02/11: Progressive decline, on max vent support/ARDS, now DNAR 02/12: Near systemic PA pressures, not weaning PROBLEM LIST: 1. Bilateral parenchymal infiltrates, multilobar pneumonia on top of underlying fibrotic lung disease 2. VDRF 3. Metabolic & respiratory acidosis 4. ARDS 5. Likely underlying pulmonary fibrosis and COPD 6. NSTEMI, likely demand ischemia 7. Lactic acidosis - RESOLVED 8. OLEG 9. Abnormal liver function tests - IMPROVED 10. SIRS 11. History of hypertension. 12. Constipation 13. Severe protein calorie malnutrition 14. Near systemic PA pressures TREATMENT PLAN: Continue ventilatory support/settings reviewed: AC 30 PC delta P 25 ---> Vol 200 's, Peak pressure ~ 40, FiO2 100/15 Dec FiO2 to keep SaO2 > 90, then decrease PEEP as able Given progressive hypoxemia, acute inc PA pressure and ST I am concerned for acute PE ----> WILL START IVUH and monitor for bleeding F/U BUL/BLE Duplex RTC and PRN DUOnebs D/C NE, start UTE, titrate to keep MAP > 60, continue HC 100 TID and taper Abx per ID Cautious TF's Hold sedation, monitor MS F/U cardiology recs Wound care GI recs, bowel regimen Px: IVUH, H2B D/W RN, RT DNAR, discussed with son DELMY RICE at [facility]. Both sons are in agreement about DNAR and no escalation, no plan for trach. However, they have not agreed on terminal extubation and full comfort measures. I will discuss this with KLEVER RICE, his other son, as well this evening. DELMY is deferring all [facility] discussions to KLEVER. CCT 90 min Critical Care - Objective Last 24 Hour Vital Signs Date Time Temp Pulse Resp B/P (MAP) Pulse Ox O2 Delivery O2 Flow Rate FiO2 02/12/18 12:55 158 34 100 02/12/18 12:54 Mechanical Ventilator 02/12/18 12:53 158 Mechanical Ventilator 100 02/12/18 10:33 100 34 100 02/12/18 09:30 95 02/12/18 09:00 119 26 114/63 (80) 87 02/12/18 08:41 96 32 100 02/12/18 08:00 110 27 123/66 (85) 94 02/12/18 08:00 Mechanical Ventilator 02/12/18 07:18 110 31 100 Mechanical Ventilator 100 02/12/18 07:08 115 31 100 Mechanical Ventilator 100 02/12/18 07:00 110 20 88/50 (63) 99 02/12/18 06:55 115 31 100 02/12/18 06:00 96 20 131/62 (85) 99 02/12/18 05:09 107 33 100 02/12/18 05:00 96 20 128/67 (87) 99 02/12/18 04:00 Mechanical Ventilator 02/12/18 04:00 100 02/12/18 04:00 98.4 106 20 118/61 (80) 99 02/12/18 04:00 109 02/12/18 03:30 107 22 98/52 (67) 99 02/12/18 03:15 102 23 110/59 (76) 96 02/12/18 03:00 109 24 111/59 (76) 95 02/12/18 02:47 88 35 100 02/12/18 02:45 112 22 130/74 (92) 94 02/12/18 02:30 112 24 139/70 (93) 97 02/12/18 02:15 109 23 147/71 (96) 95 02/12/18 02:00 147/71 02/12/18 02:00 85 23 117/60 (79) 99 02/12/18 01:45 82 20 123/69 (87) 97 02/12/18 01:30 95 27 129/67 (87) 100 02/12/18 01:15 107 30 118/56 (76) 100 02/12/18 01:00 80 29 125/57 (79) 99 02/12/18 01:00 78 30 99 Mechanical Ventilator 100 02/12/18 01:00 118/56 02/12/18 00:45 95 28 134/65 (88) 98 02/12/18 00:44 81 30 96 Mechanical Ventilator 100 02/12/18 00:44 78 30 100 02/12/18 00:30 77 24 112/54 (73) 96 02/12/18 00:15 86 24 142/54 (83) 97 02/12/18 00:00 Mechanical Ventilator 02/12/18 00:00 98.6 82 20 126/41 (69) 99 02/12/18 00:00 142/54 02/12/18 00:00 90 02/11/18 23:45 105 24 124/59 (80) 97 02/11/18 23:30 83 20 126/60 (82) 100 02/11/18 23:15 111 24 139/58 (85) 100 02/11/18 23:08 81 34 100 02/11/18 23:00 139/58 02/11/18 23:00 80 26 115/53 (73) 100 02/11/18 22:45 81 26 118/58 (78) 100 02/11/18 22:30 80 21 113/55 (74) 100 02/11/18 22:15 96 25 129/65 (86) 100 02/11/18 22:00 129/65 02/11/18 22:00 79 21 126/61 (82) 98 02/11/18 21:45 80 19 117/68 (84) 98 02/11/18 21:30 79 21 115/59 (77) 98 18 21:15 81 21 119/57 (77) 97 18 21:01 84 34 100 02/11/18 21:00 81 21 121/56 (77) 98 18 21:00 119/57 02/11/18 20:45 96 21 122/61 (81) 99 02/11/18 20:30 81 19 120/62 (81) 100 02/11/18 20:15 80 19 110/52 (71) 100 02/11/18 20:00 Mechanical Ventilator 02/11/18 20:00 98.4 82 17 105/50 (68) 100 02/11/18 20:00 81 02/11/18 20:00 110/52 02/11/18 20:00 100 02/11/18 19:00 79 17 103/49 (67) 100 02/11/18 19:00 117/54 02/11/18 18:50 79 33 100 Mechanical Ventilator 100 02/11/18 18:39 79 32 99 Mechanical Ventilator 100 02/11/18 18:34 79 32 100 02/11/18 18:30 77 21 108/51 (70) 98 02/11/18 18:15 80 21 111/53 (72) 97 02/11/18 18:00 80 21 111/51 (71) 97 02/11/18 18:00 111/51 02/11/18 17:45 80 20 122/57 (78) 97 02/11/18 17:30 81 21 130/58 (82) 98 02/11/18 17:15 81 20 141/60 (87) 97 02/11/18 17:09 81 34 100 02/11/18 17:00 121/57 02/11/18 17:00 110 21 137/68 (91) 99 02/11/18 16:30 109 30 120/59 (79) 100 02/11/18 16:02 83 02/11/18 16:00 98.6 83 18 120/55 (76) 100 02/11/18 16:00 Mechanical Ventilator 02/11/18 16:00 120/50 02/11/18 15:30 86 20 121/51 (74) 98 02/11/18 15:12 100 02/11/18 15:00 82 27 146/66 (92) 87 02/11/18 15:00 146/65 02/11/18 14:45 85 22 140/121 (127) 94 02/11/18 14:45 85 35 100 02/11/18 14:30 111 21 127/51 (76) 96 Status: obtunded Condition: critical HEENT: other - ETT< NGT Lungs: rhonchi Heart: HR/BP unstable Abdomen: soft, non-tender, active bowel sounds Extremities: edema - 1-2+ Decubiti: location - sacral and b elbow Micro: Microbiology Date/Time Source Procedure Growth Status 02/09/18 17:00 Sputum Gram Stain - Final Complete 02/09/18 17:00 Sputum Culture - Final Pseudomonas Aeruginosa Complete 02/10/18 23:00 Urine,Clean Catch Urine Culture - Preliminary Resulted Blood Sugars: BS controlled Critical Care - Subjective ROS Limited/Unobtainable: Yes ICU Day: 18 Intubation Day: 18 Interval Events: Repeat TTE with near systemic PA pressures On 5 mcg NE, ST to 140 No change in secretions, no change in SM Condition: critical IV Access: PICC EKG Rhythm: Sinus Tachycardia FI02: 100 Vent Support Breath Rate: 30 Vent Support Mode: AC Sputum Amount: Small PEEP: 15.0 PIP: 42 Secretions: small thick Fluids: D5W Drips: NE@5 Tube Feeding Amount: 40 Residuals: 0 I&O: Intake and Output 02/11/18 02/12/18 19:00 07:00 Intake Total 1584.431 ml 1869.537 ml Output Total 420 ml 430 ml Balance 1164.431 ml 1439.537 ml Free Water 100 ml IV Total 1554.431 ml 1399.537 ml Tube Feeding 30 ml 310 ml Other 60 ml Output Urine Total 420 ml 430 ml # Bowel Movements 1 Subjective: IRENE CXR: No change ET-Tube: 7.5 ET Position: 23 Labs: Laboratory Tests Test 02/12/18 05:43 02/12/18 08:44 02/12/18 13:50 White Blood Count 8.9 K/UL (4.8-10.8) Red Blood Count 2.51 M/UL (4.70-6.10) L Hemoglobin 8.0 G/DL (14.2-18.0) L Hematocrit 25.1 % (42.0-52.0) L Mean Corpuscular Volume 100 FL (80-99) H Mean Corpuscular Hemoglobin 31.7 PG (27.0-31.0) H Mean Corpuscular Hemoglobin Concent 31.7 G/DL (32.0-36.0) L Red Cell Distribution Width 14.0 % (11.6-14.8) Platelet Count 202 K/UL (150-450) Mean Platelet Volume 7.6 FL (6.5-10.1) Neutrophils (%) (Auto) % (45.0-75.0) Lymphocytes (%) (Auto) % (20.0-45.0) Monocytes (%) (Auto) % (1.0-10.0) Eosinophils (%) (Auto) % (0.0-3.0) Basophils (%) (Auto) % (0.0-2.0) Differential Total Cells Counted 100 Neutrophils % (Manual) 92 % (45-75) H Lymphocytes % (Manual) 6 % (20-45) L Monocytes % (Manual) 2 % (1-10) Eosinophils % (Manual) 0 % (0-3) Basophils % (Manual) 0 % (0-2) Band Neutrophils 0 % (0-8) Platelet Estimate Adequate Platelet Morphology Normal Hypochromasia 1+ Anisocytosis 1+ Macrocytosis 1+ Sodium Level 147 MMOL/L (136-145) H Potassium Level 4.3 MMOL/L (3.5-5.1) Chloride Level 104 MMOL/L (98-107) Carbon Dioxide Level 43 MMOL/L (21-32) *H Anion Gap 0 mmol/L (5-15) L Blood Urea Nitrogen 92 mg/dL (7-18) H Creatinine 2.6 MG/DL (0.55-1.30) H Estimat Glomerular Filtration Rate mL/min (>60) Glucose Level 163 MG/DL (74-106) H Lactic Acid Level 2.30 mmol/L (0.4-2.0) H Pending Uric Acid 7.4 MG/DL (2.6-7.2) H Calcium Level 7.3 MG/DL (8.5-10.1) L Phosphorus Level 4.0 MG/DL (2.5-4.9) Magnesium Level 2.6 MG/DL (1.8-2.4) H Total Bilirubin 0.5 MG/DL (0.2-1.0) Gamma Glutamyl Transpeptidase 7 U/L (5-85) Aspartate Amino Transf (AST/SGOT) 21 U/L (15-37) Alanine Aminotransferase (ALT/SGPT) 20 U/L (12-78) Alkaline Phosphatase 49 U/L (46-116) Ammonia 26 umol/L (11-32) Total Creatine Kinase 57 U/L (26-308) Troponin I 0.073 ng/mL (0.000-0.056) Pro-B-Type Natriuretic Peptide 40248 pg/mL (0-125) H Total Protein 5.5 G/DL (6.4-8.2) L Albumin 1.7 G/DL (3.4-5.0) L Globulin 3.8 g/dL Albumin/Globulin Ratio 0.4 (1.0-2.7) L Arterial Blood pH 7.340 (7.350-7.450) Arterial Blood Partial Pressure CO2 83.2 mmHg (35.0-45.0) *H Arterial Blood Partial Pressure O2 52.8 mmHg (75.0-100.0) L Arterial Blood HCO3 44.6 mmol/L (22.0-26.0) *H Arterial Blood Oxygen Saturation 84.9 % (95-100) *L Arterial Blood Base Excess 16.3 (-2-2) *H Dima Test Positive Lev Johnson MD Feb 12, 2018 14:14
[2018-02-12] MEDS ORDERED: Phenylephrine 50 MG in D5W 245 ML IV SCH (14:15)
[2018-02-12 14:55] LABS: HEMATOCRIT 25.2 % (42.0-52.0); HEMOGLOBIN 7.9 G/DL (14.2-18.0); MEAN CORPUSCULAR VOLUME 99 FL (80-99); PLATELET COUNT 229 K/UL (150-450); RED BLOOD COUNT 2.55 M/UL (4.70-6.10); RED CELL DISTRIBUTION WIDTH 13.6 % (11.6-14.8); WHITE BLOOD COUNT 12.4 K/UL (4.8-10.8)
[2018-02-12] MEDS ORDERED: Heparin 5000 units/ml inj IV SCH (15:00)
[2018-02-12] MEDS ORDERED: Heparin 25,000u/D5W 500ml 500 ML IV SCH (15:00)
--- NOTE | 2018-02-12 17:00 | Consultation ---
DATE OF CONSULTATION: 02/12/2018 PAIN MANAGEMENT CONSULTATION CONSULTING PHYSICIAN: Mario Arias M.D. REFERRING PHYSICIAN: Edwin Corrigan M.D. PHYSICIAN HOME CHILD CARE PROVIDER: Thelma Shen HISTORY OF PRESENT ILLNESS: The patient is a 77-year-old male who is being seen on the ICU of [facility] for comprehensive pain management consultation. The patient at this time in bed, unresponsive, intubated on ventilator which pulmonary says is unable to be weaned, may need tracheostomy as per surgeon, opening his eyes but is nonverbal showing no sign of pain or distress. Discussed with nurse at bedside. Medical issues taken from chart showing the patient had pulmonary fibrosis, pneumonia, respiratory failure causing encephalopathy and sepsis, had been on fentanyl drip however it was stopped on Tuesday. At this time, the nurse informs the patient is hypoxic even on vent. As per instant powder supervisor do not recommend any psych or mind-altering drugs due to kidney failure. At this time, we were consulted so the patient would have adequate pain control while here in the hospital however the patient shows no signs of pain and as per nurse has not shown signs of pain. PAST MEDICAL HISTORY: As per chart is hypertension. PAST SURGICAL HISTORY: Laminectomy. SOCIAL HISTORY: Heavy smoker in the past. ALLERGIES: No known drug allergies. MEDICATIONS: Unknown home medications. Inpatient medications, Tylenol, dopamine, heparin, hydrocortisone, midazolam, Zofran, pantoprazole, saline. REVIEW OF SYSTEMS: Unable to obtain due to the patient's mental status. PHYSICAL EXAMINATION: GENERAL: Intubated. VITAL SIGNS: Blood pressure 114/62, heart rate is 119, oxygen saturation 82%, respiratory rate 26 on vent. LUNGS: Decreased breath sounds bilaterally. HEART: S1 and S2 tachy. ABDOMEN: benign. EXTREMITIES: No cyanosis. No clubbing. ASSESSMENT AND PLAN: This is a 77-year-old male with respiratory failure on ventilator, pulmonary fibrosis, pneumonia with sepsis, encephalopathy. The patient will be continued on current medication regimen as per the roof tiler, surgeon, stretcher leveler operator helper, welfare project manager, dumpling machine operator, instant powder supervisor, an Infectious Diseases doctor. At this time showing no signs of pain. We do not recommend the patient to be on any narcotic medications at this time. We will continue to assess if there is any need for patient to be on narcotics in the coming days. The patient with Dr. Arias and concurred. We will follow the patient. Thank you much for the courtesy of this consultation. Mario Arias M.D. GUILLERMINA Shen DR: Lily JOB#: [id number] CC: WILLIAM
[2018-02-12] MEDS: DOPamine 400mg/250ml 250 ML IV SCH (18:00)
--- NOTE | 2018-02-12 18:59 | Cardiology Progress Note ---
Assessment/Plan Status: stable Assessment/Plan Assessment/Plan Assessment/Plan 1. Type 2 NSTEMI. The levels are flat. No CP Due to the respiratory failure and azotemia. Echo normal EF 2. Respiratory failure, due to PNA and COPD and CHF. The patient is on the ventilator. Antibiotic per ID Failed weaning. Tracheostomy pending if family and Dr Merino agrees 3. Hypokalemia, corrected 4. Azotemia and hypernatremia. On D5 1/[address] Mclaughlin Na still 149 5. Elevated bilirubin of 2.3. Down to 1.1 Subjective Cardiovascular: Reports: no symptoms Respiratory: Reports: no symptoms Gastrointestinal/Abdominal: Reports: no symptoms Genitourinary: Reports: no symptoms Subjective [employer] Dopamine drip decreased down to 8 mcg/kg/min. BP 113/51. On ACPC PIP 25, RR 30, itime 0.8, Fio2 100%, PEEP +15. Pt intubated. Pt obtunded and episodes of anxiety, still not able to wean. Objective Last 24 Hour Vital Signs Date Time Temp Pulse Resp B/P (MAP) Pulse Ox O2 Delivery O2 Flow Rate FiO2 02/12/18 18:49 78 32 98 Mechanical Ventilator 100 02/12/18 18:44 82 35 100 02/12/18 18:00 104/60 02/12/18 17:11 89 30 100 02/12/18 17:00 85 32 104/60 (75) 02/12/18 16:00 97 32 113/70 (84) 02/12/18 16:00 Mechanical Ventilator 02/12/18 16:00 100 02/12/18 15:55 115 02/12/18 15:00 110 32 128/72 (90) 02/12/18 14:37 158 114/63 02/12/18 14:32 118 30 100 02/12/18 14:00 170 32 146/86 (106) 02/12/18 13:00 154 32 94/56 (69) 02/12/18 12:55 158 34 100 02/12/18 12:54 Mechanical Ventilator 02/12/18 12:53 158 Mechanical Ventilator 100 02/12/18 12:00 Mechanical Ventilator 02/12/18 12:00 92 02/12/18 12:00 100 02/12/18 12:00 151 28 99/53 (68) 90 02/12/18 11:00 108 21 116/63 (80) 100 02/12/18 10:33 100 34 100 02/12/18 10:00 92 24 105/63 (77) 98 02/12/18 09:30 95 02/12/18 09:00 119 26 114/63 (80) 87 02/12/18 08:41 96 32 100 02/12/18 08:00 100 02/12/18 08:00 110 27 123/66 (85) 94 02/12/18 08:00 110 02/12/18 08:00 Mechanical Ventilator 02/12/18 07:18 110 31 100 Mechanical Ventilator 100 02/12/18 07:08 115 31 100 Mechanical Ventilator 100 02/12/18 07:00 110 20 88/50 (63) 99 02/12/18 06:55 115 31 100 02/12/18 06:00 96 20 131/62 (85) 99 02/12/18 05:09 107 33 100 02/12/18 05:00 96 20 128/67 (87) 99 02/12/18 04:00 Mechanical Ventilator 02/12/18 04:00 100 02/12/18 04:00 98.4 106 20 118/61 (80) 99 02/12/18 04:00 109 02/12/18 03:30 107 22 98/52 (67) 99 02/12/18 03:15 102 23 110/59 (76) 96 02/12/18 03:00 109 24 111/59 (76) 95 02/12/18 02:47 88 35 100 02/12/18 02:45 112 22 130/74 (92) 94 02/12/18 02:30 112 24 139/70 (93) 97 02/12/18 02:15 109 23 147/71 (96) 95 02/12/18 02:00 147/71 02/12/18 02:00 85 23 117/60 (79) 99 02/12/18 01:45 82 20 123/69 (87) 97 02/12/18 01:30 95 27 129/67 (87) 100 02/12/18 01:15 107 30 118/56 (76) 100 02/12/18 01:00 80 29 125/57 (79) 99 02/12/18 01:00 78 30 99 Mechanical Ventilator 100 02/12/18 01:00 118/56 02/12/18 00:45 95 28 134/65 (88) 98 02/12/18 00:44 81 30 96 Mechanical Ventilator 100 02/12/18 00:44 78 30 100 02/12/18 00:30 77 24 112/54 (73) 96 02/12/18 00:15 86 24 142/54 (83) 97 02/12/18 00:00 Mechanical Ventilator 02/12/18 00:00 98.6 82 20 126/41 (69) 99 02/12/18 00:00 142/54 02/12/18 00:00 90 02/11/18 23:45 105 24 124/59 (80) 97 02/11/18 23:30 83 20 126/60 (82) 100 02/11/18 23:15 111 24 139/58 (85) 100 02/11/18 23:08 81 34 100 02/11/18 23:00 139/58 02/11/18 23:00 80 26 115/53 (73) 100 02/11/18 22:45 81 26 118/58 (78) 100 02/11/18 22:30 80 21 113/55 (74) 100 02/11/18 22:15 96 25 129/65 (86) 100 02/11/18 22:00 129/65 02/11/18 22:00 79 21 126/61 (82) 98 02/11/18 21:45 80 19 117/68 (84) 98 02/11/18 21:30 79 21 115/59 (77) 98 18 21:15 81 21 119/57 (77) 97 02/11/18 21:01 84 34 100 02/11/18 21:00 81 21 121/56 (77) 98 18 21:00 119/57 02/11/18 20:45 96 21 122/61 (81) 99 02/11/18 20:30 81 19 120/62 (81) 100 02/11/18 20:15 80 19 110/52 (71) 100 02/11/18 20:00 Mechanical Ventilator 02/11/18 20:00 98.4 82 17 105/50 (68) 100 02/11/18 20:00 81 02/11/18 20:00 110/52 02/11/18 20:00 100 02/11/18 19:00 79 17 103/49 (67) 100 02/11/18 19:00 117/54 General Appearance: no apparent distress, agitated, on vent EENT: PERRL/EOMI, normal ENT inspection, TMs normal, pharynx normal Neck: non-tender, normal alignment, supple, normal inspection Rhythm: NSR Cardiovascular: normal peripheral pulses, normal rate, regular rhythm Respiratory/Chest: chest wall non-tender, lungs clear Abdomen: normal bowel sounds, non tender, soft, no organomegaly, no mass Extremities: normal range of motion, non-tender, normal inspection, no calf tenderness, no swelling Neurologic: director industrial II-XII grossly normal, no motor/sensory deficits Intake and Output 02/11/18 02/12/18 19:00 07:00 Intake Total 1584.431 ml 1869.537 ml Output Total 420 ml 430 ml Balance 1164.431 ml 1439.537 ml Free Water 100 ml IV Total 1554.431 ml 1399.537 ml Tube Feeding 30 ml 310 ml Other 60 ml Output Urine Total 420 ml 430 ml # Bowel Movements 1 Laboratory Tests Test 02/12/18 05:43 02/12/18 08:44 02/12/18 13:50 02/12/18 14:45 White Blood Count 8.9 K/UL (4.8-10.8) 12.4 K/UL (4.8-10.8) H Red Blood Count 2.51 M/UL (4.70-6.10) L 2.55 M/UL (4.70-6.10) L Hemoglobin 8.0 G/DL (14.2-18.0) L 7.9 G/DL (14.2-18.0) L Hematocrit 25.1 % (42.0-52.0) L 25.2 % (42.0-52.0) L Mean Corpuscular Volume 100 FL (80-99) H 99 FL (80-99) Mean Corpuscular Hemoglobin 31.7 PG (27.0-31.0) H 30.9 PG (27.0-31.0) Mean Corpuscular Hemoglobin Concent 31.7 G/DL (32.0-36.0) L 31.3 G/DL (32.0-36.0) L Red Cell Distribution Width 14.0 % (11.6-14.8) 13.6 % (11.6-14.8) Platelet Count 202 K/UL (150-450) 229 K/UL (150-450) Mean Platelet Volume 7.6 FL (6.5-10.1) 6.2 FL (6.5-10.1) L Neutrophils (%) (Auto) % (45.0-75.0) % (45.0-75.0) Lymphocytes (%) (Auto) % (20.0-45.0) % (20.0-45.0) Monocytes (%) (Auto) % (1.0-10.0) % (1.0-10.0) Eosinophils (%) (Auto) % (0.0-3.0) % (0.0-3.0) Basophils (%) (Auto) % (0.0-2.0) % (0.0-2.0) Differential Total Cells Counted 100 100 Neutrophils % (Manual) 92 % (45-75) H 92 % (45-75) H Lymphocytes % (Manual) 6 % (20-45) L 6 % (20-45) L Monocytes % (Manual) 2 % (1-10) 1 % (1-10) Eosinophils % (Manual) 0 % (0-3) 0 % (0-3) Basophils % (Manual) 0 % (0-2) 0 % (0-2) Band Neutrophils 0 % (0-8) 1 % (0-8) Platelet Estimate Adequate Adequate Platelet Morphology Normal Normal Hypochromasia 1+ 1+ Anisocytosis 1+ 1+ Macrocytosis 1+ Sodium Level 147 MMOL/L (136-145) H Potassium Level 4.3 MMOL/L (3.5-5.1) Chloride Level 104 MMOL/L (98-107) Carbon Dioxide Level 43 MMOL/L (21-32) *H Anion Gap 0 mmol/L (5-15) L Blood Urea Nitrogen 92 mg/dL (7-18) H Creatinine 2.6 MG/DL (0.55-1.30) H Estimat Glomerular Filtration Rate mL/min (>60) Glucose Level 163 MG/DL (74-106) H Lactic Acid Level 2.30 mmol/L (0.4-2.0) H 2.90 mmol/L (0.66-2.22) H Uric Acid 7.4 MG/DL (2.6-7.2) H Calcium Level 7.3 MG/DL (8.5-10.1) L Phosphorus Level 4.0 MG/DL (2.5-4.9) Magnesium Level 2.6 MG/DL (1.8-2.4) H Total Bilirubin 0.5 MG/DL (0.2-1.0) Gamma Glutamyl Transpeptidase 7 U/L (5-85) Aspartate Amino Transf (AST/SGOT) 21 U/L (15-37) Alanine Aminotransferase (ALT/SGPT) 20 U/L (12-78) Alkaline Phosphatase 49 U/L (46-116) Ammonia 26 umol/L (11-32) Total Creatine Kinase 57 U/L (26-308) Troponin I 0.073 ng/mL (0.000-0.056) Pro-B-Type Natriuretic Peptide 85640 pg/mL (0-125) H Total Protein 5.5 G/DL (6.4-8.2) L Albumin 1.7 G/DL (3.4-5.0) L Globulin 3.8 g/dL Albumin/Globulin Ratio 0.4 (1.0-2.7) L Arterial Blood pH 7.340 (7.350-7.450) Arterial Blood Partial Pressure CO2 83.2 mmHg (35.0-45.0) *H Arterial Blood Partial Pressure O2 52.8 mmHg (75.0-100.0) L Arterial Blood HCO3 44.6 mmol/L (22.0-26.0) *H Arterial Blood Oxygen Saturation 84.9 % (95-100) *L Arterial Blood Base Excess 16.3 (-2-2) *H Dima Test Positive Polychromasia 1+ Activated Partial Thromboplast Time 33 SEC (23-33) Microbiology Date/Time Source Procedure Growth Status 02/10/18 23:00 Urine,Clean Catch Urine Culture - Preliminary Resulted Tyrel Dawson MD Feb 12, 2018 18:59
[2018-02-12] MEDS: Dyna-Hex 2% Top Sol 2oz TOPIC SCH (20:38)
--- NOTE | 2018-02-12 20:50 | General Progress Note ---
Assessment/Plan Assessment/Plan Covering for Dr. Corrigan # Leukocytosis. Secondary to sepsis and pna. is on abx at this time --> WBC improving 16k--> 12k-->13k-->12.2k-->14.2k-->12-->12.2 --> Peripheral smear reviewed and no blasts are noted --> Medications have been reviewed --> Imaging has been reviewed, reveals apparent worsening of bilateral parenchymal disease --> Blood cultures and urine cultures are negative --> abx, empiric treatment --> on dara as per pulm/cc, for low bp # Anemia of chronic disease due to underlying chronic medical issues, multifactorial. --> Anemia panel has been reviewed. Ferritin at 674 --> Cont to monitor for stability --> Hgb goal >7, transfuse prn --> hgb 13-->11.2-->11-->9.5-->9.6 # Coagulopathy is now off hep gtt --> hepatitis A++, HIV negative --> ptt and mixing study - elevated at 30.8 # Respiratory failure is on a vent. --> Intubated --> Pt unable to wean off of vent --> per pulm # Pneumonia. s/p abx # Urinary tract infection. --> s/p abx # Status post recurrent falls. # Sepsis. # Dehydration. # Afib and now in sr --> as per cards # DNR with limited measures # Critical ill, poor prognosis GREATLY APPRECIATE CONSULTATION. Subjective Allergies: Coded Allergies: No Known Allergies (Unverified , 01/24/18) Subjective S/P trach. Pt awake and agitated. Pt remains in ICU, on vent. No acute events. Remains on abx. dnar Objective Last 24 Hour Vital Signs Date Time Temp Pulse Resp B/P (MAP) Pulse Ox O2 Delivery O2 Flow Rate FiO2 02/12/18 18:55 81 31 100 Mechanical Ventilator 100 02/12/18 18:49 78 32 98 Mechanical Ventilator 100 02/12/18 18:44 82 35 100 02/12/18 18:00 104/60 02/12/18 18:00 85 32 108/68 (81) 02/12/18 17:11 89 30 100 02/12/18 17:00 85 32 104/60 (75) 02/12/18 16:00 97 32 113/70 (84) 02/12/18 16:00 Mechanical Ventilator 02/12/18 16:00 100 02/12/18 15:55 115 02/12/18 15:00 110 32 128/72 (90) 02/12/18 14:37 158 114/63 02/12/18 14:32 118 30 100 02/12/18 14:00 170 32 146/86 (106) 02/12/18 13:00 154 32 94/56 (69) 02/12/18 12:55 158 34 100 02/12/18 12:54 Mechanical Ventilator 02/12/18 12:53 158 Mechanical Ventilator 100 02/12/18 12:00 Mechanical Ventilator 02/12/18 12:00 92 02/12/18 12:00 100 02/12/18 12:00 151 28 99/53 (68) 90 02/12/18 11:00 108 21 116/63 (80) 100 02/12/18 10:33 100 34 100 02/12/18 10:00 92 24 105/63 (77) 98 02/12/18 09:30 95 02/12/18 09:00 119 26 114/63 (80) 87 02/12/18 08:41 96 32 100 02/12/18 08:00 100 02/12/18 08:00 110 27 123/66 (85) 94 02/12/18 08:00 110 02/12/18 08:00 Mechanical Ventilator 02/12/18 07:18 110 31 100 Mechanical Ventilator 100 02/12/18 07:08 115 31 100 Mechanical Ventilator 100 02/12/18 07:00 110 20 88/50 (63) 99 02/12/18 06:55 115 31 100 02/12/18 06:00 96 20 131/62 (85) 99 02/12/18 05:09 107 33 100 02/12/18 05:00 96 20 128/67 (87) 99 02/12/18 04:00 Mechanical Ventilator 02/12/18 04:00 100 02/12/18 04:00 98.4 106 20 118/61 (80) 99 02/12/18 04:00 109 02/12/18 03:30 107 22 98/52 (67) 99 02/12/18 03:15 102 23 110/59 (76) 96 02/12/18 03:00 109 24 111/59 (76) 95 02/12/18 02:47 88 35 100 02/12/18 02:45 112 22 130/74 (92) 94 02/12/18 02:30 112 24 139/70 (93) 97 02/12/18 02:15 109 23 147/71 (96) 95 02/12/18 02:00 147/71 02/12/18 02:00 85 23 117/60 (79) 99 02/12/18 01:45 82 20 123/69 (87) 97 02/12/18 01:30 95 27 129/67 (87) 100 02/12/18 01:15 107 30 118/56 (76) 100 02/12/18 01:00 80 29 125/57 (79) 99 02/12/18 01:00 78 30 99 Mechanical Ventilator 100 02/12/18 01:00 118/56 02/12/18 00:45 95 28 134/65 (88) 98 02/12/18 00:44 81 30 96 Mechanical Ventilator 100 02/12/18 00:44 78 30 100 02/12/18 00:30 77 24 112/54 (73) 96 02/12/18 00:15 86 24 142/54 (83) 97 02/12/18 00:00 Mechanical Ventilator 02/12/18 00:00 98.6 82 20 126/41 (69) 99 02/12/18 00:00 142/54 02/12/18 00:00 90 02/11/18 23:45 105 24 124/59 (80) 97 02/11/18 23:30 83 20 126/60 (82) 100 02/11/18 23:15 111 24 139/58 (85) 100 02/11/18 23:08 81 34 100 02/11/18 23:00 139/58 02/11/18 23:00 80 26 115/53 (73) 100 02/11/18 22:45 81 26 118/58 (78) 100 02/11/18 22:30 80 21 113/55 (74) 100 02/11/18 22:15 96 25 129/65 (86) 100 02/11/18 22:00 129/65 02/11/18 22:00 79 21 126/61 (82) 98 02/11/18 21:45 80 19 117/68 (84) 98 02/11/18 21:30 79 21 115/59 (77) 98 02/11/18 21:15 81 21 119/57 (77) 97 02/11/18 21:01 84 34 100 02/11/18 21:00 81 21 121/56 (77) 98 02/11/18 21:00 119/57 Intake and Output 02/11/18 02/12/18 19:00 07:00 Intake Total 1584.431 ml 1869.537 ml Output Total 420 ml 430 ml Balance 1164.431 ml 1439.537 ml Free Water 100 ml IV Total 1554.431 ml 1399.537 ml Tube Feeding 30 ml 310 ml Other 60 ml Output Urine Total 420 ml 430 ml # Bowel Movements 1 Laboratory Tests 02/12/18 05:43: White Blood Count 8.9, Red Blood Count 2.51L, Hemoglobin 8.0L, Hematocrit 25.1L , Mean Corpuscular Volume 100H, Mean Corpuscular Hemoglobin 31.7H, Mean Corpuscular Hemoglobin Concent 31.7L, Red Cell Distribution Width 14.0, Platelet Count 202, Mean Platelet Volume 7.6, Neutrophils (%) (Auto) , Lymphocytes (%) (Auto) , Monocytes (%) (Auto) , Eosinophils (%) (Auto) , Basophils (%) (Auto) , Differential Total Cells Counted 100, Neutrophils % ( Manual) 92H, Lymphocytes % (Manual) 6L, Monocytes % (Manual) 2, Eosinophils % ( Manual) 0, Basophils % (Manual) 0, Band Neutrophils 0, Platelet Estimate Adequate, Platelet Morphology Normal, Hypochromasia 1+, Anisocytosis 1+, Macrocytosis 1+, Sodium Level 147H, Potassium Level 4.3, Chloride Level 104, Carbon Dioxide Level 43*H, Anion Gap 0L, Blood Urea Nitrogen 92H, Creatinine 2.6H, Estimat Glomerular Filtration Rate , Glucose Level 163H, Lactic Acid Level 2.30H, Uric Acid 7.4H, Calcium Level 7.3L, Phosphorus Level 4.0, Magnesium Level 2.6H, Total Bilirubin 0.5, Gamma Glutamyl Transpeptidase 7, Aspartate Amino Transf (AST/SGOT) 21, Alanine Aminotransferase (ALT/SGPT) 20, Alkaline Phosphatase 49, Ammonia 26, Total Creatine Kinase 57, Troponin I 0.073H , Pro-B-Type Natriuretic Peptide 99688V, Total Protein 5.5L, Albumin 1.7L, Globulin 3.8, Albumin/Globulin Ratio 0.4L 02/12/18 08:44: Arterial Blood pH 7.340L, Arterial Blood Partial Pressure CO2 83.2*H, Arterial Blood Partial Pressure O2 52.8L, Arterial Blood HCO3 44.6*H, Arterial Blood Oxygen Saturation 84.9*L, Arterial Blood Base Excess 16.3*H, Dima Test Positive 02/12/18 13:50: Lactic Acid Level 2.90H 02/12/18 14:45: White Blood Count 12.4H, Red Blood Count 2.55L, Hemoglobin 7.9L, Hematocrit 25.2L, Mean Corpuscular Volume 99, Mean Corpuscular Hemoglobin 30.9, Mean Corpuscular Hemoglobin Concent 31.3L, Red Cell Distribution Width 13.6, Platelet Count 229, Mean Platelet Volume 6.2L, Neutrophils (%) (Auto) , Lymphocytes (%) (Auto) , Monocytes (%) (Auto) , Eosinophils (%) (Auto) , Basophils (%) (Auto) , Differential Total Cells Counted 100, Neutrophils % ( Manual) 92H, Lymphocytes % (Manual) 6L, Monocytes % (Manual) 1, Eosinophils % ( Manual) 0, Basophils % (Manual) 0, Band Neutrophils 1, Platelet Estimate Adequate, Platelet Morphology Normal, Hypochromasia 1+, Anisocytosis 1+, Polychromasia 1+, Activated Partial Thromboplast Time 33 Height (Feet): 5 Height (Inches): 9.00 Weight (Pounds): 166 Objective Status: awake Condition: critical Lungs: rhonchi ++ VENT Heart: HR/BP stable Abdomen: soft, non-tender, active bowel sounds Extremities: no C/C/E Decubiti: location - sacral Blood Sugars: BS controlled Fabian Yung MD Feb 12, 2018 20:50
--- NOTE | 2018-02-12 22:57 | General Progress Note ---
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 (2) UTI (urinary tract infection) ICD Codes: N39.0 - Urinary tract infection, site not specified SNOMED: 12939659, 370296855 Qualifiers: Qualified Codes: N39.0 - Urinary tract infection, site not specified (3) Severe sepsis ICD Codes: A41.9 - Sepsis, unspecified organism; R65.20 - Severe sepsis without septic shock SNOMED: 23561976 Status: deteriorating Assessment/Plan the Haldol was dced this medication is not sedating the family should make decisions the pt lacks capacity provided ro/st midazolam per pulmonology Subjective Neurologic/Psychiatric: Reports: anxiety Allergies: Coded Allergies: No Known Allergies (Unverified , 01/24/18) Subjective the pt has not received any psych meds/ the pt was on fentanyl drip per Dr. Johnson and we didn't use any Haldol. Dr. Johnson prefers Midazolam to keep the pt calm. The Haldol was on board since it is not sedating. Objective Last 24 Hour Vital Signs Date Time Temp Pulse Resp B/P (MAP) Pulse Ox O2 Delivery O2 Flow Rate FiO2 02/12/18 21:12 88 33 100 02/12/18 21:00 89 29 122/60 (80) 92 02/12/18 20:00 98.9 113 26 124/64 (84) 91 02/12/18 19:00 89 23 120/58 (78) 97 02/12/18 18:55 81 31 100 Mechanical Ventilator 100 02/12/18 18:49 78 32 98 Mechanical Ventilator 100 02/12/18 18:44 82 35 100 02/12/18 18:00 104/60 02/12/18 18:00 85 32 108/68 (81) 02/12/18 17:11 89 30 100 02/12/18 17:00 85 32 104/60 (75) 02/12/18 16:00 97 32 113/70 (84) 02/12/18 16:00 Mechanical Ventilator 02/12/18 16:00 100 02/12/18 15:55 115 02/12/18 15:00 110 32 128/72 (90) 02/12/18 14:37 158 114/63 02/12/18 14:32 118 30 100 02/12/18 14:00 170 32 146/86 (106) 02/12/18 13:00 154 32 94/56 (69) 02/12/18 12:55 158 34 100 02/12/18 12:54 Mechanical Ventilator 02/12/18 12:53 158 Mechanical Ventilator 100 02/12/18 12:00 Mechanical Ventilator 02/12/18 12:00 92 02/12/18 12:00 100 02/12/18 12:00 151 28 99/53 (68) 90 02/12/18 11:00 108 21 116/63 (80) 100 02/12/18 10:33 100 34 100 02/12/18 10:00 92 24 105/63 (77) 98 02/12/18 09:30 95 02/12/18 09:00 119 26 114/63 (80) 87 02/12/18 08:41 96 32 100 02/12/18 08:00 100 02/12/18 08:00 110 27 123/66 (85) 94 02/12/18 08:00 110 02/12/18 08:00 Mechanical Ventilator 02/12/18 07:18 110 31 100 Mechanical Ventilator 100 02/12/18 07:08 115 31 100 Mechanical Ventilator 100 02/12/18 07:00 110 20 88/50 (63) 99 02/12/18 06:55 115 31 100 02/12/18 06:00 96 20 131/62 (85) 99 02/12/18 05:09 107 33 100 02/12/18 05:00 96 20 128/67 (87) 99 02/12/18 04:00 Mechanical Ventilator 02/12/18 04:00 100 02/12/18 04:00 98.4 106 20 118/61 (80) 99 02/12/18 04:00 109 02/12/18 03:30 107 22 98/52 (67) 99 02/12/18 03:15 102 23 110/59 (76) 96 02/12/18 03:00 109 24 111/59 (76) 95 02/12/18 02:47 88 35 100 02/12/18 02:45 112 22 130/74 (92) 94 02/12/18 02:30 112 24 139/70 (93) 97 02/12/18 02:15 109 23 147/71 (96) 95 12/23/18 02:00 147/71 02/12/18 02:00 85 23 117/60 (79) 99 02/12/18 01:45 82 20 123/69 (87) 97 02/12/18 01:30 95 27 129/67 (87) 100 02/12/18 01:15 107 30 118/56 (76) 100 02/12/18 01:00 80 29 125/57 (79) 99 02/12/18 01:00 78 30 99 Mechanical Ventilator 100 02/12/18 01:00 118/56 02/12/18 00:45 95 28 134/65 (88) 98 02/12/18 00:44 81 30 96 Mechanical Ventilator 100 02/12/18 00:44 78 30 100 02/12/18 00:30 77 24 112/54 (73) 96 02/12/18 00:15 86 24 142/54 (83) 97 02/12/18 00:00 Mechanical Ventilator 02/12/18 00:00 98.6 82 20 126/41 (69) 99 02/12/18 00:00 142/54 02/12/18 00:00 90 02/11/18 23:45 105 24 124/59 (80) 97 02/11/18 23:30 83 20 126/60 (82) 100 02/11/18 23:15 111 24 139/58 (85) 100 02/11/18 23:08 81 34 100 02/11/18 23:00 139/58 02/11/18 23:00 80 26 115/53 (73) 100 Intake and Output 02/11/18 02/12/18 19:00 07:00 Intake Total 1584.431 ml 1869.537 ml Output Total 420 ml 430 ml Balance 1164.431 ml 1439.537 ml Free Water 100 ml IV Total 1554.431 ml 1399.537 ml Tube Feeding 30 ml 310 ml Other 60 ml Output Urine Total 420 ml 430 ml # Bowel Movements 1 Laboratory Tests 02/12/18 05:43: White Blood Count 8.9, Red Blood Count 2.51L, Hemoglobin 8.0L, Hematocrit 25.1L , Mean Corpuscular Volume 100H, Mean Corpuscular Hemoglobin 31.7H, Mean Corpuscular Hemoglobin Concent 31.7L, Red Cell Distribution Width 14.0, Platelet Count 202, Mean Platelet Volume 7.6, Neutrophils (%) (Auto) , Lymphocytes (%) (Auto) , Monocytes (%) (Auto) , Eosinophils (%) (Auto) , Basophils (%) (Auto) , Differential Total Cells Counted 100, Neutrophils % ( Manual) 92H, Lymphocytes % (Manual) 6L, Monocytes % (Manual) 2, Eosinophils % ( Manual) 0, Basophils % (Manual) 0, Band Neutrophils 0, Platelet Estimate Adequate, Platelet Morphology Normal, Hypochromasia 1+, Anisocytosis 1+, Macrocytosis 1+, Sodium Level 147H, Potassium Level 4.3, Chloride Level 104, Carbon Dioxide Level 43*H, Anion Gap 0L, Blood Urea Nitrogen 92H, Creatinine 2.6H, Estimat Glomerular Filtration Rate , Glucose Level 163H, Lactic Acid Level 2.30H, Uric Acid 7.4H, Calcium Level 7.3L, Phosphorus Level 4.0, Magnesium Level 2.6H, Total Bilirubin 0.5, Gamma Glutamyl Transpeptidase 7, Aspartate Amino Transf (AST/SGOT) 21, Alanine Aminotransferase (ALT/SGPT) 20, Alkaline Phosphatase 49, Ammonia 26, Total Creatine Kinase 57, Troponin I 0.073H , Pro-B-Type Natriuretic Peptide [id number], Total Protein 5.5L, Albumin 1.7L, Globulin 3.8, Albumin/Globulin Ratio 0.4L 02/12/18 08:44: Arterial Blood pH 7.340L, Arterial Blood Partial Pressure CO2 83.2*H, Arterial Blood Partial Pressure O2 52.8L, Arterial Blood HCO3 44.6*H, Arterial Blood Oxygen Saturation 84.9*L, Arterial Blood Base Excess 16.3*H, Dima Test Positive 02/12/18 13:50: Lactic Acid Level 2.90H 02/12/18 14:45: White Blood Count 12.4H, Red Blood Count 2.55L, Hemoglobin 7.9L, Hematocrit 25.2L, Mean Corpuscular Volume 99, Mean Corpuscular Hemoglobin 30.9, Mean Corpuscular Hemoglobin Concent 31.3L, Red Cell Distribution Width 13.6, Platelet Count 229, Mean Platelet Volume 6.2L, Neutrophils (%) (Auto) , Lymphocytes (%) (Auto) , Monocytes (%) (Auto) , Eosinophils (%) (Auto) , Basophils (%) (Auto) , Differential Total Cells Counted 100, Neutrophils % ( Manual) 92H, Lymphocytes % (Manual) 6L, Monocytes % (Manual) 1, Eosinophils % ( Manual) 0, Basophils % (Manual) 0, Band Neutrophils 1, Platelet Estimate Adequate, Platelet Morphology Normal, Hypochromasia 1+, Anisocytosis 1+, Polychromasia 1+, Activated Partial Thromboplast Time 33 02/12/18 22:15: Activated Partial Thromboplast Time [Pending] Height (Feet): 5 Height (Inches): 9.00 Weight (Pounds): 166 General Appearance: alert, confused, agitated Collin Smith MD Feb 12, 2018 22:57
[2018-02-13] VITALS (19 sets, daily range): BP systolic 41–151; BP diastolic 15–79
[2018-02-13] MEDS ORDERED: Heparin 25,000u/D5W 500ml 500 ML IV SCH (00:15)
[2018-02-13] MEDS: Hydrocortisone 100mg Inj IV SCH (05:32)
--- NOTE | 2018-02-13 06:42 | General Progress Note ---
Assessment/Plan Assessment/Plan hepatitis panel reviewed >> active Hep A infection anemia work up reviewed >> folate and iron deficiency recent KUB >> no acute findings Dysphagia NGTF patient DNR now OB stool r/o GI bleed uncollected monitor H&H, prn transfusions constipation - bowel regime >> lactulose TID ppi folate fu labs poor prognosis dc laxative on heparin drip for possible PE per pulmonology Subjective ROS Limited/Unobtainable: No Allergies: Coded Allergies: No Known Allergies (Unverified , 01/24/18) Objective Last 24 Hour Vital Signs Date Time Temp Pulse Resp B/P (MAP) Pulse Ox O2 Delivery O2 Flow Rate FiO2 02/13/18 06:00 85 26 139/57 (84) 97 02/13/18 05:00 82 22 126/59 (81) 100 02/13/18 04:51 116 32 100 02/13/18 04:00 77 02/13/18 04:00 100 02/13/18 04:00 98.1 77 24 131/73 (92) 95 02/13/18 04:00 Mechanical Ventilator 02/13/18 03:00 82 26 130/58 (82) 95 02/13/18 02:31 112 33 100 02/13/18 02:00 85 28 131/57 (81) 94 02/13/18 01:00 85 26 117/66 (83) 89 02/13/18 00:56 Mechanical Ventilator 100 02/13/18 00:55 81 33 96 Mechanical Ventilator 100 02/13/18 00:52 79 34 100 02/13/18 00:00 Mechanical Ventilator 02/13/18 00:00 98.1 87 26 131/71 (91) 90 02/12/18 23:53 83 02/12/18 23:23 94 32 Mechanical Ventilator 100 02/12/18 23:19 89 32 100 02/12/18 23:00 85 24 129/57 (81) 90 02/12/18 22:00 89 26 129/68 (88) 85 02/12/18 21:12 88 33 100 02/12/18 21:00 89 29 122/60 (80) 92 02/12/18 20:00 100 02/12/18 20:00 98.9 113 26 124/64 (84) 91 02/12/18 20:00 Mechanical Ventilator 02/12/18 19:17 112 02/12/18 19:00 89 23 120/58 (78) 97 02/12/18 18:55 81 31 100 Mechanical Ventilator 100 02/12/18 18:49 78 32 98 Mechanical Ventilator 100 02/12/18 18:44 82 35 100 02/12/18 18:00 104/60 02/12/18 18:00 85 32 108/68 (81) 02/12/18 17:11 89 30 100 02/12/18 17:00 85 32 104/60 (75) 02/12/18 16:00 97 32 113/70 (84) 02/12/18 16:00 Mechanical Ventilator 02/12/18 16:00 100 02/12/18 15:55 115 02/12/18 15:00 110 32 128/72 (90) 02/12/18 14:37 158 114/63 02/12/18 14:32 118 30 100 02/12/18 14:00 170 32 146/86 (106) 02/12/18 13:00 154 32 94/56 (69) 02/12/18 12:55 158 34 100 02/12/18 12:54 Mechanical Ventilator 02/12/18 12:53 158 Mechanical Ventilator 100 02/12/18 12:00 Mechanical Ventilator 02/12/18 12:00 92 02/12/18 12:00 100 02/12/18 12:00 151 28 99/53 (68) 90 02/12/18 11:00 108 21 116/63 (80) 100 02/12/18 10:33 100 34 100 02/12/18 10:00 92 24 105/63 (77) 98 02/12/18 09:30 95 02/12/18 09:00 119 26 114/63 (80) 87 02/12/18 08:41 96 32 100 02/12/18 08:00 100 02/12/18 08:00 110 27 123/66 (85) 94 02/12/18 08:00 110 02/12/18 08:00 Mechanical Ventilator 02/12/18 07:18 110 31 100 Mechanical Ventilator 100 02/12/18 07:08 115 31 100 Mechanical Ventilator 100 02/12/18 07:00 110 20 88/50 (63) 99 02/12/18 06:55 115 31 100 Intake and Output 02/12/18 02/13/18 19:00 07:00 Intake Total 445.266 ml 1276.052 ml Output Total 180 ml 565 ml Balance 265.266 ml 711.052 ml IV Total 245.266 ml 1276.052 ml Tube Feeding 200 ml Output Urine Total 180 ml 565 ml # Bowel Movements 8 2 Laboratory Tests 02/12/18 08:44: Arterial Blood pH 7.340L, Arterial Blood Partial Pressure CO2 83.2*H, Arterial Blood Partial Pressure O2 52.8L, Arterial Blood HCO3 44.6*H, Arterial Blood Oxygen Saturation 84.9*L, Arterial Blood Base Excess 16.3*H, Dima Test Positive 02/12/18 13:50: Lactic Acid Level 2.90H 02/12/18 14:45: White Blood Count 12.4H, Red Blood Count 2.55L, Hemoglobin 7.9L, Hematocrit 25.2L, Mean Corpuscular Volume 99, Mean Corpuscular Hemoglobin 30.9, Mean Corpuscular Hemoglobin Concent 31.3L, Red Cell Distribution Width 13.6, Platelet Count 229, Mean Platelet Volume 6.2L, Neutrophils (%) (Auto) , Lymphocytes (%) (Auto) , Monocytes (%) (Auto) , Eosinophils (%) (Auto) , Basophils (%) (Auto) , Differential Total Cells Counted 100, Neutrophils % ( Manual) 92H, Lymphocytes % (Manual) 6L, Monocytes % (Manual) 1, Eosinophils % ( Manual) 0, Basophils % (Manual) 0, Band Neutrophils 1, Platelet Estimate Adequate, Platelet Morphology Normal, Polychromasia 1+, Hypochromasia 1+, Anisocytosis 1+, Activated Partial Thromboplast Time 33 02/12/18 22:15: Activated Partial Thromboplast Time > 150*H Height (Feet): 5 Height (Inches): 9.00 Weight (Pounds): 167 General Appearance: lethargic EENT: normal ENT inspection Neck: supple Cardiovascular: tachycardia Respiratory/Chest: decreased breath sounds Abdomen: non tender, soft Extremities: non-tender, swelling Peter Salgado MD Feb 13, 2018 06:42
[2018-02-13] MEDS: Sodium Bicarbonate 150 ML in D5W 1000ml 1,000 ML IV SCH (08:00)
[2018-02-13] MEDS: Pantoprazole Inj IVP SCH (09:00)
--- NOTE | 2018-02-13 09:07 | General Progress Note ---
Assessment/Plan Assessment/Plan (1) Respiratory Failure on ventilator (2) Pulmonary fibrosis (3) Pneumonia with sepsis (4) Encephalopathy No changes at this time. Continue medications as per medical team. D/w Dr. Arias and he concurred. Subjective Date patient seen: Feb 13, 2018 Time patient seen: 08:00 - am ROS Limited/Unobtainable: Yes Allergies: Coded Allergies: No Known Allergies (Unverified , 01/24/18) Subjective Patient is in bed continues to be intubated on vent. No signs of pain or distress at this time. Objective Last 24 Hour Vital Signs Date Time Temp Pulse Resp B/P (MAP) Pulse Ox O2 Delivery O2 Flow Rate FiO2 02/13/18 07:20 84 34 100 02/13/18 07:00 84 25 125/65 (85) 96 02/13/18 06:00 85 26 139/57 (84) 97 02/13/18 05:00 82 22 126/59 (81) 100 02/13/18 04:51 116 32 100 02/13/18 04:00 77 02/13/18 04:00 100 02/13/18 04:00 98.1 77 24 131/73 (92) 95 02/13/18 04:00 Mechanical Ventilator 02/13/18 03:00 82 26 130/58 (82) 95 02/13/18 02:31 112 33 100 02/13/18 02:00 85 28 131/57 (81) 94 02/13/18 01:00 85 26 117/66 (83) 89 02/13/18 00:56 Mechanical Ventilator 100 02/13/18 00:55 81 33 96 Mechanical Ventilator 100 02/13/18 00:52 79 34 100 02/13/18 00:00 Mechanical Ventilator 02/13/18 00:00 98.1 87 26 131/71 (91) 90 02/12/18 23:53 83 02/12/18 23:23 94 32 Mechanical Ventilator 100 02/12/18 23:19 89 32 100 02/12/18 23:00 85 24 129/57 (81) 90 02/12/18 22:00 89 26 129/68 (88) 85 02/12/18 21:12 88 33 100 02/12/18 21:00 89 29 122/60 (80) 92 02/12/18 20:00 100 02/12/18 20:00 98.9 113 26 124/64 (84) 91 02/12/18 20:00 Mechanical Ventilator 02/12/18 19:17 112 02/12/18 19:00 89 23 120/58 (78) 97 02/12/18 18:55 81 31 100 Mechanical Ventilator 100 02/12/18 18:49 78 32 98 Mechanical Ventilator 100 02/12/18 18:44 82 35 100 02/12/18 18:00 104/60 02/12/18 18:00 85 32 108/68 (81) 02/12/18 17:11 89 30 100 02/12/18 17:00 85 32 104/60 (75) 02/12/18 16:00 97 32 113/70 (84) 02/12/18 16:00 Mechanical Ventilator 02/12/18 16:00 100 02/12/18 15:55 115 02/12/18 15:00 110 32 128/72 (90) 02/12/18 14:37 158 114/63 02/12/18 14:32 118 30 100 02/12/18 14:00 170 32 146/86 (106) 02/12/18 13:00 154 32 94/56 (69) 02/12/18 12:55 158 34 100 02/12/18 12:54 Mechanical Ventilator 02/12/18 12:53 158 Mechanical Ventilator 100 02/12/18 12:00 Mechanical Ventilator 02/12/18 12:00 92 02/12/18 12:00 100 02/12/18 12:00 151 28 99/53 (68) 90 02/12/18 11:00 108 21 116/63 (80) 100 02/12/18 10:33 100 34 100 02/12/18 10:00 92 24 105/63 (77) 98 02/12/18 09:30 95 Intake and Output 02/12/18 02/13/18 18:59 06:59 Intake Total 458.118 ml 1403.200 ml Output Total 210 ml 585 ml Balance 248.118 ml 818.200 ml IV Total 218.118 ml 1403.200 ml Tube Feeding 240 ml Output Urine Total 210 ml 585 ml # Bowel Movements 8 2 Laboratory Tests 02/12/18 13:50: Lactic Acid Level 2.90H 02/12/18 14:45: White Blood Count 12.4H, Red Blood Count 2.55L, Hemoglobin 7.9L, Hematocrit 25.2L, Mean Corpuscular Volume 99, Mean Corpuscular Hemoglobin 30.9, Mean Corpuscular Hemoglobin Concent 31.3L, Red Cell Distribution Width 13.6, Platelet Count 229, Mean Platelet Volume 6.2L, Neutrophils (%) (Auto) , Lymphocytes (%) (Auto) , Monocytes (%) (Auto) , Eosinophils (%) (Auto) , Basophils (%) (Auto) , Differential Total Cells Counted 100, Neutrophils % ( Manual) 92H, Lymphocytes % (Manual) 6L, Monocytes % (Manual) 1, Eosinophils % ( Manual) 0, Basophils % (Manual) 0, Band Neutrophils 1, Platelet Estimate Adequate, Platelet Morphology Normal, Polychromasia 1+, Hypochromasia 1+, Anisocytosis 1+, Activated Partial Thromboplast Time 33 02/12/18 22:15: Activated Partial Thromboplast Time > 150*H 02/13/18 06:15: Activated Partial Thromboplast Time 86H Height (Feet): 5 Height (Inches): 9.00 Weight (Pounds): 167 Objective LUNGS: Decreased breath sounds bilaterally. HEART: S1 and S2 regular. ABDOMEN: benign. EXTREMITIES: No cyanosis. No clubbing. NEURO: No changes. Denver Stewart Feb 13, 2018 09:07
--- NOTE | 2018-02-13 09:10 | Pulmonolgy Critical Care Note ---
Critical Care - Asmt/Plan Problems: (1) ARDS (adult respiratory distress syndrome) (2) Pulmonary fibrosis (3) Multifocal pneumonia (4) Respiratory disorder with ventilator dependence (5) Lactic acid acidosis (6) Abnormal LFTs (7) OLEG (acute kidney injury) (8) SIRS (systemic inflammatory response syndrome) (9) UTI (urinary tract infection) Assessment/Plan: ASSESSMENT: The patient is a 77-year-old male, current daily smoker with history of hypertension, back pain, lack of health maintenance, presenting with respiratory illness, bilateral pneumonia, lactic acidosis, abnormal kidney function and renal function likely OLEG, and shock liver. 01/26: Prog hypoxemia, inc WOB, tx'd to ICU, intubated 01/27: Gas exchange better, trops downtrending, LA resolved 01/30: Oxygenation stable, stable on vent 02/11: Progressive decline, on max vent support/ARDS, now DNAR 02/12: Near systemic PA pressures, not weaning PROBLEM LIST: 1. Bilateral parenchymal infiltrates, multilobar pneumonia on top of underlying fibrotic lung disease 2. VDRF 3. Metabolic & respiratory acidosis 4. ARDS 5. Likely underlying pulmonary fibrosis and COPD 6. NSTEMI, likely demand ischemia 7. Lactic acidosis - RESOLVED 8. OLEG 9. Abnormal liver function tests - IMPROVED 10. SIRS 11. History of hypertension. 12. Constipation 13. Severe protein calorie malnutrition 14. Near systemic PA pressures TREATMENT PLAN: Continue ventilatory support/settings reviewed: AC 30 PC delta P 25 ---> Vol 400s, Peak pressure ~ 40, FiO2 100/15 Check ABG and adjust vent settings Dec FiO2 to keep SaO2 > 90, then decrease PEEP as able Given progressive hypoxemia, acute inc PA pressure and ST I am concerned for acute PE ----> WILL CONTINUE IVUH and monitor for bleeding BUE/BLE DUPLEX no DVT PRN UTE - now off Continue HC 100 TID and taper Abx per ID Cautious TF's Hold sedation, monitor MS F/U cardiology recs Wound care GI recs, bowel regimen Px: IVUH, H2B D/W RN, RT DNAR, discussed with son DELMY RICE at [facility]. Both sons are in agreement about DNAR and no escalation, no plan for trach. However, they have not agreed on terminal extubation and full comfort measures. I am awaiting callback to discuss this with KLEVER RICE, his other son. DELMY is deferring all GOC discussions to KLEVER. CCT 65 min Critical Care - Objective Last 24 Hour Vital Signs Date Time Temp Pulse Resp B/P (MAP) Pulse Ox O2 Delivery O2 Flow Rate FiO2 02/13/18 07:20 84 34 100 02/13/18 07:00 84 25 125/65 (85) 96 02/13/18 06:00 85 26 139/57 (84) 97 02/13/18 05:00 82 22 126/59 (81) 100 02/13/18 04:51 116 32 100 02/13/18 04:00 77 02/13/18 04:00 100 02/13/18 04:00 98.1 77 24 131/73 (92) 95 02/13/18 04:00 Mechanical Ventilator 02/13/18 03:00 82 26 130/58 (82) 95 02/13/18 02:31 112 33 100 02/13/18 02:00 85 28 131/57 (81) 94 02/13/18 01:00 85 26 117/66 (83) 89 02/13/18 00:56 Mechanical Ventilator 100 02/13/18 00:55 81 33 96 Mechanical Ventilator 100 02/13/18 00:52 79 34 100 02/13/18 00:00 Mechanical Ventilator 02/13/18 00:00 98.1 87 26 131/71 (91) 90 02/12/18 23:53 83 02/12/18 23:23 94 32 Mechanical Ventilator 100 02/12/18 23:19 89 32 100 02/12/18 23:00 85 24 129/57 (81) 90 02/12/18 22:00 89 26 129/68 (88) 85 02/12/18 21:12 88 33 100 02/12/18 21:00 89 29 122/60 (80) 92 02/12/18 20:00 100 02/12/18 20:00 98.9 113 26 124/64 (84) 91 02/12/18 20:00 Mechanical Ventilator 02/12/18 19:17 112 02/12/18 19:00 89 23 120/58 (78) 97 02/12/18 18:55 81 31 100 Mechanical Ventilator 100 02/12/18 18:49 78 32 98 Mechanical Ventilator 100 02/12/18 18:44 82 35 100 02/12/18 18:00 104/60 02/12/18 18:00 85 32 108/68 (81) 02/12/18 17:11 89 30 100 02/12/18 17:00 85 32 104/60 (75) 02/12/18 16:00 97 32 113/70 (84) 02/12/18 16:00 Mechanical Ventilator 02/12/18 16:00 100 02/12/18 15:55 115 02/12/18 15:00 110 32 128/72 (90) 02/12/18 14:37 158 114/63 02/12/18 14:32 118 30 100 02/12/18 14:00 170 32 146/86 (106) 02/12/18 13:00 154 32 94/56 (69) 02/12/18 12:55 158 34 100 02/12/18 12:54 Mechanical Ventilator 02/12/18 12:53 158 Mechanical Ventilator 100 02/12/18 12:00 Mechanical Ventilator 02/12/18 12:00 92 02/12/18 12:00 100 02/12/18 12:00 151 28 99/53 (68) 90 02/12/18 11:00 108 21 116/63 (80) 100 02/12/18 10:33 100 34 100 02/12/18 10:00 92 24 105/63 (77) 98 02/12/18 09:30 95 Status: awake, obtunded Condition: critical HEENT: atraumatic, normocephalic, other - ETT OGT Lungs: rhonchi Heart: HR/BP unstable Abdomen: soft, non-tender, active bowel sounds Extremities: edema - 2+ Decubiti: location - sacral and elbow Micro: Microbiology Date/Time Source Procedure Growth Status 02/10/18 23:00 Urine,Clean Catch Urine Culture - Preliminary Resulted Blood Sugars: BS controlled Critical Care - Subjective ROS Limited/Unobtainable: Yes ICU Day: 19 Intubation Day: 19 Interval Events: Started on IVUH, alexis AC, HR better, O2 needs unchanged Getting better TV Condition: critical IV Access: PICC EKG Rhythm: Sinus Rhythm FI02: 100 Vent Support Breath Rate: 30 Vent Support Mode: AC Sputum Amount: Small PEEP: 15.0 PIP: 41 Secretions: small thick Fluids: HCO3- Drips: Off UTE Tube Feeding Amount: 40 Residuals: None I&O: Intake and Output 02/12/18 02/13/18 19:00 07:00 Intake Total 445.266 ml 1397.167 ml Output Total 180 ml 615 ml Balance 265.266 ml 782.167 ml IV Total 245.266 ml 1397.167 ml Tube Feeding 200 ml Output Urine Total 180 ml 615 ml # Bowel Movements 8 2 Subjective: IRENE ET-Tube: 7.5 ET Position: 23 Labs: Laboratory Tests Test 02/12/18 13:50 02/12/18 14:45 02/12/18 22:15 02/13/18 06:15 Lactic Acid Level 2.90 mmol/L (0.66-2.22) H White Blood Count 12.4 K/UL (4.8-10.8) H Red Blood Count 2.55 M/UL (4.70-6.10) L Hemoglobin 7.9 G/DL (14.2-18.0) L Hematocrit 25.2 % (42.0-52.0) L Mean Corpuscular Volume 99 FL (80-99) Mean Corpuscular Hemoglobin 30.9 PG (27.0-31.0) Mean Corpuscular Hemoglobin Concent 31.3 G/DL (32.0-36.0) L Red Cell Distribution Width 13.6 % (11.6-14.8) Platelet Count 229 K/UL (150-450) Mean Platelet Volume 6.2 FL (6.5-10.1) L Neutrophils (%) (Auto) % (45.0-75.0) Lymphocytes (%) (Auto) % (20.0-45.0) Monocytes (%) (Auto) % (1.0-10.0) Eosinophils (%) (Auto) % (0.0-3.0) Basophils (%) (Auto) % (0.0-2.0) Differential Total Cells Counted 100 Neutrophils % (Manual) 92 % (45-75) H Lymphocytes % (Manual) 6 % (20-45) L Monocytes % (Manual) 1 % (1-10) Eosinophils % (Manual) 0 % (0-3) Basophils % (Manual) 0 % (0-2) Band Neutrophils 1 % (0-8) Platelet Estimate Adequate Platelet Morphology Normal Polychromasia 1+ Hypochromasia 1+ Anisocytosis 1+ Activated Partial Thromboplast Time 33 SEC (23-33) > 150 SEC (23-33) *H 86 SEC (23-33) H Lev Johnson MD Feb 13, 2018 09:09
[2018-02-13 09:43] LABS: HEMATOCRIT 25.1 % (42.0-52.0); MEAN CORPUSCULAR VOLUME 98 FL (80-99); PLATELET COUNT 209 K/UL (150-450); RED BLOOD COUNT 2.55 M/UL (4.70-6.10); RED CELL DISTRIBUTION WIDTH 13.7 % (11.6-14.8); WHITE BLOOD COUNT 13.9 K/UL (4.8-10.8)
[2018-02-13 09:55] LABS: ALANINE AMINOTRANSFERASE 22 U/L (12-78); ALBUMIN 1.9 G/DL (3.4-5.0); ALBUMIN/GLOBULIN RATIO 0.5 (1.0-2.7); ALKALINE PHOSPHATASE 54 U/L (46-116); ASPARTATE AMINO TRANSFERASE 27 U/L (15-37); BILIRUBIN,TOTAL 0.6 MG/DL (0.2-1.0); BLOOD UREA NITROGEN 95 mg/dL (7-18); CHLORIDE 102 MMOL/L (98-107); CREATINE KINASE 69 U/L (26-308); CREATININE 2.6 MG/DL (0.55-1.30); PHOSPHORUS 3.3 MG/DL (2.5-4.9); POTASSIUM 3.7 MMOL/L (3.5-5.1); SODIUM 149 MMOL/L (136-145)
[2018-02-13 09:56] LABS: CARBON DIOXIDE > 45 MMOL/L (21-32)
[2018-02-13] MEDS ORDERED: Tubing IV Secondary IV ONE ×2 (10:07→10:25)
[2018-02-13] MEDS ORDERED: NS 275ml ONE ×2 (10:07→21:55)
[2018-02-13 10:16] LABS: CALCIUM 7.5 MG/DL (8.5-10.1)
[2018-02-13 10:17] LABS: GAMMA GLUTAMYL TRANSPEPTIDASE 6 U/L (5-85)
[2018-02-13] MEDS ORDERED: D5 1/2NS 1000ml IV ONE (10:25)
[2018-02-13] MEDS ORDERED: Sterile Water Irrig 1000ml IRRIG ONE (10:25)
--- NOTE | 2018-02-13 10:37 | Nephrology Progress Note ---
Assessment/Plan Problem List: (1) OLEG (acute kidney injury) Assessment: Cr rising (2) Respiratory disorder with ventilator dependence (3) Abnormal LFTs (4) Lactic acid acidosis (5) UTI (urinary tract infection) (6) Pulmonary fibrosis Assessment Acute renal failure,Cr 2.6 unchanged high K resolved Pneumonia / Sepsis / Hypoxia / UTI HypoAlbuminemia / Proteinuria Acute respiratory failure Pulmonary fibrosis Lactic acidosis Plan STOP ALL PSYCH AND MIND ALTERING MEDS DOING POORLY discussed with Dr Johnson Dc IV Bicarb Hold all bp meds- on pressors albumin bolus as needed Pulm support / on vent IV antibiotics Watch electrolytes Gastric support Per orders DNR now adjust meds for kidney failure Subjective ROS Limited/Unobtainable: Yes Objective Objective Last 24 Hour Vital Signs Date Time Temp Pulse Resp B/P (MAP) Pulse Ox O2 Delivery O2 Flow Rate FiO2 02/13/18 09:15 76 34 100 02/13/18 09:14 97 02/13/18 07:20 84 34 100 02/13/18 07:00 84 25 125/65 (85) 96 02/13/18 06:00 85 26 139/57 (84) 97 02/13/18 05:00 82 22 126/59 (81) 100 02/13/18 04:51 116 32 100 02/13/18 04:00 77 02/13/18 04:00 100 02/13/18 04:00 98.1 77 24 131/73 (92) 95 02/13/18 04:00 Mechanical Ventilator 02/13/18 03:00 82 26 130/58 (82) 95 02/13/18 02:31 112 33 100 02/13/18 02:00 85 28 131/57 (81) 94 02/13/18 01:00 85 26 117/66 (83) 89 02/13/18 00:56 Mechanical Ventilator 100 02/13/18 00:55 81 33 96 Mechanical Ventilator 100 02/13/18 00:52 79 34 100 02/13/18 00:00 Mechanical Ventilator 02/13/18 00:00 98.1 87 26 131/71 (91) 90 02/12/18 23:53 83 02/12/18 23:23 94 32 Mechanical Ventilator 100 02/12/18 23:19 89 32 100 02/12/18 23:00 85 24 129/57 (81) 90 02/12/18 22:00 89 26 129/68 (88) 85 02/12/18 21:12 88 33 100 02/12/18 21:00 89 29 122/60 (80) 92 02/12/18 20:00 100 02/12/18 20:00 98.9 113 26 124/64 (84) 91 02/12/18 20:00 Mechanical Ventilator 02/12/18 19:17 112 02/12/18 19:00 89 23 120/58 (78) 97 02/12/18 18:55 81 31 100 Mechanical Ventilator 100 02/12/18 18:49 78 32 98 Mechanical Ventilator 100 02/12/18 18:44 82 35 100 02/12/18 18:00 104/60 02/12/18 18:00 85 32 108/68 (81) 02/12/18 17:11 89 30 100 02/12/18 17:00 85 32 104/60 (75) 02/12/18 16:00 97 32 113/70 (84) 02/12/18 16:00 Mechanical Ventilator 02/12/18 16:00 100 02/12/18 15:55 115 02/12/18 15:00 110 32 128/72 (90) 02/12/18 14:37 158 114/63 02/12/18 14:32 118 30 100 02/12/18 14:00 170 32 146/86 (106) 02/12/18 13:00 154 32 94/56 (69) 02/12/18 12:55 158 34 100 02/12/18 12:54 Mechanical Ventilator 02/12/18 12:53 158 Mechanical Ventilator 100 02/12/18 12:00 Mechanical Ventilator 02/12/18 12:00 92 02/12/18 12:00 100 02/12/18 12:00 151 28 99/53 (68) 90 02/12/18 11:00 108 21 116/63 (80) 100 Intake and Output 02/12/18 02/13/18 19:00 07:00 Intake Total 445.266 ml 1397.167 ml Output Total 180 ml 615 ml Balance 265.266 ml 782.167 ml IV Total 245.266 ml 1397.167 ml Tube Feeding 200 ml Output Urine Total 180 ml 615 ml # Bowel Movements 8 2 Laboratory Tests 02/12/18 13:50: Lactic Acid Level 2.90H 02/12/18 14:45: White Blood Count 12.4H, Red Blood Count 2.55L, Hemoglobin 7.9L, Hematocrit 25.2L, Mean Corpuscular Volume 99, Mean Corpuscular Hemoglobin 30.9, Mean Corpuscular Hemoglobin Concent 31.3L, Red Cell Distribution Width 13.6, Platelet Count 229, Mean Platelet Volume 6.2L, Neutrophils (%) (Auto) , Lymphocytes (%) (Auto) , Monocytes (%) (Auto) , Eosinophils (%) (Auto) , Basophils (%) (Auto) , Differential Total Cells Counted 100, Neutrophils % ( Manual) 92H, Lymphocytes % (Manual) 6L, Monocytes % (Manual) 1, Eosinophils % ( Manual) 0, Basophils % (Manual) 0, Band Neutrophils 1, Platelet Estimate Adequate, Platelet Morphology Normal, Polychromasia 1+, Hypochromasia 1+, Anisocytosis 1+, Activated Partial Thromboplast Time 33 02/12/18 22:15: Activated Partial Thromboplast Time > 150*H 02/13/18 06:15: Activated Partial Thromboplast Time 86H 02/13/18 09:10: White Blood Count 13.9H, Red Blood Count 2.55L, Hemoglobin 8.0L, Hematocrit 25.1L, Mean Corpuscular Volume 98, Mean Corpuscular Hemoglobin 31.4H, Mean Corpuscular Hemoglobin Concent 31.9L, Red Cell Distribution Width 13.7, Platelet Count 209, Mean Platelet Volume 7.6, Neutrophils (%) (Auto) , Lymphocytes (%) (Auto) , Monocytes (%) (Auto) , Eosinophils (%) (Auto) , Basophils (%) (Auto) , Differential Total Cells Counted 100, Neutrophils % ( Manual) 95H, Lymphocytes % (Manual) 3L, Monocytes % (Manual) 2, Eosinophils % ( Manual) 0, Basophils % (Manual) 0, Band Neutrophils 0, Platelet Estimate Adequate, Platelet Morphology Normal, Hypochromasia 1+, Anisocytosis 1+, Sodium Level 149H, Potassium Level 3.7, Chloride Level 102, Carbon Dioxide Level > 45*H , Blood Urea Nitrogen 95H, Creatinine 2.6H, Estimat Glomerular Filtration Rate , Glucose Level 147H, Lactic Acid Level 2.30H, Uric Acid 7.2, Calcium Level 7.5L , Phosphorus Level 3.3, Magnesium Level 2.6H, Total Bilirubin 0.6, Gamma Glutamyl Transpeptidase 6, Aspartate Amino Transf (AST/SGOT) 27, Alanine Aminotransferase (ALT/SGPT) 22, Alkaline Phosphatase 54, Total Creatine Kinase 69, Troponin I 0.626H, Total Protein 5.9L, Albumin 1.9L, Globulin 4.0, Albumin/ Globulin Ratio 0.5L 02/13/18 09:33: Arterial Blood pH 7.486H, Arterial Blood Partial Pressure CO2 66.2*H, Arterial Blood Partial Pressure O2 55.8L, Arterial Blood HCO3 48.9*H, Arterial Blood Oxygen Saturation 87.2*L, Arterial Blood Base Excess 22.9*H, Dima Test Positive Height (Feet): 5 Height (Inches): 9.00 Weight (Pounds): 167 General Appearance: other - un responsive EENT: other - vented Respiratory/Chest: decreased breath sounds Abdomen: distended Objective no change Juan C Mclaughlin MD Feb 13, 2018 10:37
[2018-02-13] MEDS ORDERED: D5 1/2NS 1,000 ML IV SCH (11:00)
[2018-02-13] MEDS: Meropenem 500 MG in NS 55 ML IVPB SCH (11:45)
--- NOTE | 2018-02-13 11:56 | General Surgery Progress Note ---
General Surgery-Progress Note Subjective Additional Comments still critical. unchanged. Objective Last 24 Hour Vital Signs Date Time Temp Pulse Resp B/P (MAP) Pulse Ox O2 Delivery O2 Flow Rate FiO2 02/13/18 09:15 76 34 100 02/13/18 09:14 97 02/13/18 07:20 84 34 100 02/13/18 07:00 84 25 125/65 (85) 96 02/13/18 06:00 85 26 139/57 (84) 97 02/13/18 05:00 82 22 126/59 (81) 100 02/13/18 04:51 116 32 100 02/13/18 04:00 77 02/13/18 04:00 100 02/13/18 04:00 98.1 77 24 131/73 (92) 95 02/13/18 04:00 Mechanical Ventilator 02/13/18 03:00 82 26 130/58 (82) 95 02/13/18 02:31 112 33 100 02/13/18 02:00 85 28 131/57 (81) 94 02/13/18 01:00 85 26 117/66 (83) 89 02/13/18 00:56 Mechanical Ventilator 100 02/13/18 00:55 81 33 96 Mechanical Ventilator 100 02/13/18 00:52 79 34 100 02/13/18 00:00 Mechanical Ventilator 02/13/18 00:00 98.1 87 26 131/71 (91) 90 02/12/18 23:53 83 02/12/18 23:23 94 32 Mechanical Ventilator 100 02/12/18 23:19 89 32 100 02/12/18 23:00 85 24 129/57 (81) 90 02/12/18 22:00 89 26 129/68 (88) 85 02/12/18 21:12 88 33 100 02/12/18 21:00 89 29 122/60 (80) 92 02/12/18 20:00 100 02/12/18 20:00 98.9 113 26 124/64 (84) 91 02/12/18 20:00 Mechanical Ventilator 02/12/18 19:17 112 02/12/18 19:00 89 23 120/58 (78) 97 02/12/18 18:55 81 31 100 Mechanical Ventilator 100 02/12/18 18:49 78 32 98 Mechanical Ventilator 100 12/23/18 18:44 82 35 100 02/12/18 18:00 104/60 02/12/18 18:00 85 32 108/68 (81) 02/12/18 17:11 89 30 100 02/12/18 17:00 85 32 104/60 (75) 02/12/18 16:00 97 32 113/70 (84) 02/12/18 16:00 Mechanical Ventilator 02/12/18 16:00 100 02/12/18 15:55 115 02/12/18 15:00 110 32 128/72 (90) 02/12/18 14:37 158 114/63 02/12/18 14:32 118 30 100 02/12/18 14:00 170 32 146/86 (106) 02/12/18 13:00 154 32 94/56 (69) 02/12/18 12:55 158 34 100 02/12/18 12:54 Mechanical Ventilator 02/12/18 12:53 158 Mechanical Ventilator 100 02/12/18 12:00 Mechanical Ventilator 02/12/18 12:00 92 02/12/18 12:00 100 02/12/18 12:00 151 28 99/53 (68) 90 I&O Intake and Output 02/12/18 02/13/18 18:59 06:59 Intake Total 458.118 ml 1403.200 ml Output Total 210 ml 585 ml Balance 248.118 ml 818.200 ml IV Total 218.118 ml 1403.200 ml Tube Feeding 240 ml Output Urine Total 210 ml 585 ml # Bowel Movements 8 2 Dressing: other Wound: other Drains: other Cardiovascular: other Respiratory: other Abdomen: other Extremities: other Laboratory Tests Test 02/12/18 13:50 02/12/18 14:45 02/12/18 22:15 02/13/18 06:15 Lactic Acid Level 2.90 mmol/L (0.66-2.22) H White Blood Count 12.4 K/UL (4.8-10.8) H Red Blood Count 2.55 M/UL (4.70-6.10) L Hemoglobin 7.9 G/DL (14.2-18.0) L Hematocrit 25.2 % (42.0-52.0) L Mean Corpuscular Volume 99 FL (80-99) Mean Corpuscular Hemoglobin 30.9 PG (27.0-31.0) Mean Corpuscular Hemoglobin Concent 31.3 G/DL (32.0-36.0) L Red Cell Distribution Width 13.6 % (11.6-14.8) Platelet Count 229 K/UL (150-450) Mean Platelet Volume 6.2 FL (6.5-10.1) L Neutrophils (%) (Auto) % (45.0-75.0) Lymphocytes (%) (Auto) % (20.0-45.0) Monocytes (%) (Auto) % (1.0-10.0) Eosinophils (%) (Auto) % (0.0-3.0) Basophils (%) (Auto) % (0.0-2.0) Differential Total Cells Counted 100 Neutrophils % (Manual) 92 % (45-75) H Lymphocytes % (Manual) 6 % (20-45) L Monocytes % (Manual) 1 % (1-10) Eosinophils % (Manual) 0 % (0-3) Basophils % (Manual) 0 % (0-2) Band Neutrophils 1 % (0-8) Platelet Estimate Adequate Platelet Morphology Normal Polychromasia 1+ Hypochromasia 1+ Anisocytosis 1+ Activated Partial Thromboplast Time 33 SEC (23-33) > 150 SEC (23-33) *H 86 SEC (23-33) H Test 02/13/18 09:10 02/13/18 09:33 White Blood Count 13.9 K/UL (4.8-10.8) H Red Blood Count 2.55 M/UL (4.70-6.10) L Hemoglobin 8.0 G/DL (14.2-18.0) L Hematocrit 25.1 % (42.0-52.0) L Mean Corpuscular Volume 98 FL (80-99) Mean Corpuscular Hemoglobin 31.4 PG (27.0-31.0) H Mean Corpuscular Hemoglobin Concent 31.9 G/DL (32.0-36.0) L Red Cell Distribution Width 13.7 % (11.6-14.8) Platelet Count 209 K/UL (150-450) Mean Platelet Volume 7.6 FL (6.5-10.1) Neutrophils (%) (Auto) % (45.0-75.0) Lymphocytes (%) (Auto) % (20.0-45.0) Monocytes (%) (Auto) % (1.0-10.0) Eosinophils (%) (Auto) % (0.0-3.0) Basophils (%) (Auto) % (0.0-2.0) Differential Total Cells Counted 100 Neutrophils % (Manual) 95 % (45-75) H Lymphocytes % (Manual) 3 % (20-45) L Monocytes % (Manual) 2 % (1-10) Eosinophils % (Manual) 0 % (0-3) Basophils % (Manual) 0 % (0-2) Band Neutrophils 0 % (0-8) Platelet Estimate Adequate Platelet Morphology Normal Hypochromasia 1+ Anisocytosis 1+ Sodium Level 149 MMOL/L (136-145) H Potassium Level 3.7 MMOL/L (3.5-5.1) Chloride Level 102 MMOL/L (98-107) Carbon Dioxide Level > 45 MMOL/L (21-32) *H Blood Urea Nitrogen 95 mg/dL (7-18) H Creatinine 2.6 MG/DL (0.55-1.30) H Estimat Glomerular Filtration Rate mL/min (>60) Glucose Level 147 MG/DL (74-106) H Lactic Acid Level 2.30 mmol/L (0.4-2.0) H Uric Acid 7.2 MG/DL (2.6-7.2) Calcium Level 7.5 MG/DL (8.5-10.1) L Phosphorus Level 3.3 MG/DL (2.5-4.9) Magnesium Level 2.6 MG/DL (1.8-2.4) H Total Bilirubin 0.6 MG/DL (0.2-1.0) Gamma Glutamyl Transpeptidase 6 U/L (5-85) Aspartate Amino Transf (AST/SGOT) 27 U/L (15-37) Alanine Aminotransferase (ALT/SGPT) 22 U/L (12-78) Alkaline Phosphatase 54 U/L (46-116) Total Creatine Kinase 69 U/L (26-308) Troponin I 0.626 ng/mL (0.000-0.056) C-Reactive Protein, Quantitative 7.0 mg/dL (0.00-0.90) H Total Protein 5.9 G/DL (6.4-8.2) L Albumin 1.9 G/DL (3.4-5.0) L Globulin 4.0 g/dL Albumin/Globulin Ratio 0.5 (1.0-2.7) L Arterial Blood pH 7.486 (7.350-7.450) Arterial Blood Partial Pressure CO2 66.2 mmHg (35.0-45.0) *H Arterial Blood Partial Pressure O2 55.8 mmHg (75.0-100.0) L Arterial Blood HCO3 48.9 mmol/L (22.0-26.0) *H Arterial Blood Oxygen Saturation 87.2 % (95-100) *L Arterial Blood Base Excess 22.9 (-2-2) *H Dima Test Positive Plan Problems: (1) Decubitus ulcer of sacral region, stage 3 Assessment & Plan: Stage III full thickness pressure injury sacrum present on admission (L)2cm x (W)1.8cm ,wound bed with 80% yellow slough ,20% granular Borders slightly macerated. Non-blanching erythema without elevation in skin temp, or induration periwound. NO odor noted. Abrasions noted to R elbow (L)3.2cm x (W)1.9cm.Wound with Biofilm ,erythema al; lynn borders .Periwound clean and intact. Abrasion noted to L elbow(L)5.5cm x (W)1.6cm ,biofim noted to wound bed .erythema along borders .Periwound without erythema or elevation in skin temp. Abrasion lateral L knee with dry scab. Abrasion medial R knee with dry scab. Bilat heels boggy with non-blanching erythema. Non-tender when palpated. Pt repositioned with pillow on his side but restless and repositioned self on back. given critical condition will continue with maximal efforts to reduce worsening wounds as in this condition may deteriorate Tx.Plan: Cleanse R and L elbows with Saline.Apply Silvasorb Gel to both elbows .Cover with Optifoam drsg .Change every 3 Days and prn. Cleanse Sacral Pressure injury with Saline.Apply Therahoney .Cavilon periwound.Cover with Optifoam drsg Daily and prn. Apply Cavilon to Both heels.Cover with Optifoam drsg .Change Every 7 days and prn. Cavilon to abrasions R and L lower ext.Cover with Optifoam change every 7 days and prn. Off-load heels with pillow. Reposition at least every 2 hours or as tolerated. Surface support mattress. (2) Abnormal LFTs Assessment & Plan: US reviewed - absent GB dilated ducts CT reviewed - dilated duct without notable obstruction LFT's noted and elevated t bili trending down no jaundice AST/ALT nml Alk phos nml leukocytosis trending down -no acute surgical intervention necessary -t bili and d bili correlate. unlikely obstructive at this time. especially with history of cholecystectomy prior -trend labs thank you (3) Severe sepsis Assessment & Plan: not weaning off vent easy. 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
--- NOTE | 2018-02-13 14:45 | Cardiology Report ---
APPROVED REPORT EKG Measurement Heart [id number] Atrial fibrillation with RVR Left axis deviation Right bundle branch block Inferior infarct, age undetermined Abnormal ECG
--- NOTE | 2018-02-13 15:36 | General Progress Note ---
Assessment/Plan Assessment/Plan Covering for Dr. Corrigan # Leukocytosis. Secondary to sepsis and pna. is on abx at this time --> WBC improving 16k--> 12k-->13k-->12.2k-->14.2k-->12k-->12.2k-->13.9k --> Peripheral smear reviewed and no blasts are noted --> Medications have been reviewed --> Imaging has been reviewed, reveals apparent worsening of bilateral parenchymal disease --> Blood cultures and urine cultures are negative --> abx, empiric treatment --> on dara as per pulm/cc, for low bp --> appreciate id recs # Anemia of chronic disease due to underlying chronic medical issues, multifactorial. --> Anemia panel has been reviewed. Ferritin at 674 --> Cont to monitor for stability --> Hgb goal >7, transfuse prn --> hgb 13-->11.2-->11-->9.5-->9.6-->8 # Coagulopathy is now off hep gtt --> hepatitis A++, HIV negative --> ptt and mixing study - elevated at 30.8 # Respiratory failure is on a vent. --> Intubated --> Pt unable to wean off of vent --> per pulm # Pneumonia. s/p abx # Urinary tract infection. --> s/p abx # Status post recurrent falls. # Sepsis. # Dehydration. # Afib and now in sr --> as per cards # DNR with limited measures # Critical ill, poor prognosis GREATLY APPRECIATE CONSULTATION. TIME/DATE NOTE ENTERED DOES NOT REFLECT TIME/DATE PATIENT WAS SEEN AND EXAMINED. Subjective ROS Limited/Unobtainable: Yes Allergies: Coded Allergies: No Known Allergies (Unverified , 01/24/18) Subjective S/P trach. Pt awake and agitated. Pt remains in ICU, on vent. No acute events. Remains on abx. dnar 02/13: pending discussion with son and pulm/cc, poor prognosis, unable to wean off vent, on abx, is on hep gtt as well for presumed pe Objective Last 24 Hour Vital Signs Date Time Temp Pulse Resp B/P (MAP) Pulse Ox O2 Delivery O2 Flow Rate FiO2 02/13/18 11:10 78 32 100 02/13/18 09:15 76 34 100 02/13/18 09:14 97 02/13/18 07:20 84 34 100 02/13/18 07:00 84 25 125/65 (85) 96 02/13/18 06:00 85 26 139/57 (84) 97 02/13/18 05:00 82 22 126/59 (81) 100 02/13/18 04:51 116 32 100 02/13/18 04:00 77 02/13/18 04:00 100 02/13/18 04:00 98.1 77 24 131/73 (92) 95 02/13/18 04:00 Mechanical Ventilator 02/13/18 03:00 82 26 130/58 (82) 95 02/13/18 02:31 112 33 100 02/13/18 02:00 85 28 131/57 (81) 94 02/13/18 01:00 85 26 117/66 (83) 89 02/13/18 00:56 Mechanical Ventilator 100 02/13/18 00:55 81 33 96 Mechanical Ventilator 100 02/13/18 00:52 79 34 100 02/13/18 00:00 Mechanical Ventilator 02/13/18 00:00 98.1 87 26 131/71 (91) 90 02/12/18 23:53 83 02/12/18 23:23 94 32 Mechanical Ventilator 100 02/12/18 23:19 89 32 100 02/12/18 23:00 85 24 129/57 (81) 90 02/12/18 22:00 89 26 129/68 (88) 85 02/12/18 21:12 88 33 100 02/12/18 21:00 89 29 122/60 (80) 92 18 20:00 100 02/12/18 20:00 98.9 113 26 124/64 (84) 91 02/12/18 20:00 Mechanical Ventilator 02/12/18 19:17 112 02/12/18 19:00 89 23 120/58 (78) 97 02/12/18 18:55 81 31 100 Mechanical Ventilator 100 02/12/18 18:49 78 32 98 Mechanical Ventilator 100 02/12/18 18:44 82 35 100 02/12/18 18:00 104/60 02/12/18 18:00 85 32 108/68 (81) 02/12/18 17:11 89 30 100 02/12/18 17:00 85 32 104/60 (75) 02/12/18 16:00 97 32 113/70 (84) 02/12/18 16:00 Mechanical Ventilator 02/12/18 16:00 100 02/12/18 15:55 115 Intake and Output 02/12/18 02/13/18 18:59 06:59 Intake Total 458.118 ml 1403.200 ml Output Total 210 ml 585 ml Balance 248.118 ml 818.200 ml IV Total 218.118 ml 1403.200 ml Tube Feeding 240 ml Output Urine Total 210 ml 585 ml # Bowel Movements 8 2 Laboratory Tests 02/12/18 22:15: Activated Partial Thromboplast Time > 150*H 02/13/18 06:15: Activated Partial Thromboplast Time 86H 02/13/18 09:10: White Blood Count 13.9H, Red Blood Count 2.55L, Hemoglobin 8.0L, Hematocrit 25.1L, Mean Corpuscular Volume 98, Mean Corpuscular Hemoglobin 31.4H, Mean Corpuscular Hemoglobin Concent 31.9L, Red Cell Distribution Width 13.7, Platelet Count 209, Mean Platelet Volume 7.6, Neutrophils (%) (Auto) , Lymphocytes (%) (Auto) , Monocytes (%) (Auto) , Eosinophils (%) (Auto) , Basophils (%) (Auto) , Differential Total Cells Counted 100, Neutrophils % ( Manual) 95H, Lymphocytes % (Manual) 3L, Monocytes % (Manual) 2, Eosinophils % ( Manual) 0, Basophils % (Manual) 0, Band Neutrophils 0, Platelet Estimate Adequate, Platelet Morphology Normal, Hypochromasia 1+, Anisocytosis 1+, Sodium Level 149H, Potassium Level 3.7, Chloride Level 102, Carbon Dioxide Level > 45*H , Blood Urea Nitrogen 95H, Creatinine 2.6H, Estimat Glomerular Filtration Rate , Glucose Level 147H, Lactic Acid Level 2.30H, Uric Acid 7.2, Calcium Level 7.5L , Phosphorus Level 3.3, Magnesium Level 2.6H, Total Bilirubin 0.6, Gamma Glutamyl Transpeptidase 6, Aspartate Amino Transf (AST/SGOT) 27, Alanine Aminotransferase (ALT/SGPT) 22, Alkaline Phosphatase 54, Total Creatine Kinase 69, Troponin I 0.626H, C-Reactive Protein, Quantitative 7.0H, Total Protein 5.9L , Albumin 1.9L, Globulin 4.0, Albumin/Globulin Ratio 0.5L 02/13/18 09:33: Arterial Blood pH 7.486H, Arterial Blood Partial Pressure CO2 66.2*H, Arterial Blood Partial Pressure O2 55.8L, Arterial Blood HCO3 48.9*H, Arterial Blood Oxygen Saturation 87.2*L, Arterial Blood Base Excess 22.9*H, Dima Test Positive 02/13/18 11:25: Lactic Acid Level 1.50 Height (Feet): 5 Height (Inches): 9.00 Weight (Pounds): 167 Objective Status: awake Condition: critical Lungs: rhonchi ++ VENT Heart: HR/BP stable Abdomen: soft, non-tender, active bowel sounds Extremities: no C/C/E Decubiti: location - sacral Blood Sugars: BS controlled Fabian Yung MD Feb 13, 2018 15:36
--- NOTE | 2018-02-13 15:56 | Cardiology Progress Note ---
Assessment/Plan Status: stable Assessment/Plan Assessment/Plan Assessment/Plan 1. Type 2 NSTEMI. The levels are flat. No CP Due to the respiratory failure and azotemia. Echo normal EF 2. Respiratory failure, due to PNA and COPD and CHF. The patient is on the ventilator. Antibiotic per ID Failed weaning. Tracheostomy pending if family and Dr Merino agrees 3. Hypokalemia, corrected 4. Azotemia and hypernatremia. On D5 1/[address] Mclaughlin Na still 149 5. Elevated bilirubin of 2.3. Down to 1.1 Subjective Cardiovascular: Reports: no symptoms Respiratory: Reports: no symptoms Gastrointestinal/Abdominal: Reports: no symptoms Genitourinary: Reports: no symptoms Subjective COVERAGE FOR [employer] Dopamine drip decreased down to 8 mcg/kg/min. BP 113/51. On ACPC PIP 25, RR 30, itime 0.8, Fio2 100%, PEEP +15. Pt intubated. Pt obtunded and episodes of anxiety, still not able to wean. Objective Last 24 Hour Vital Signs Date Time Temp Pulse Resp B/P (MAP) Pulse Ox O2 Delivery O2 Flow Rate FiO2 02/13/18 13:45 42 25 41/25 (30) 94 02/13/18 13:30 78 25 91/15 (40) 94 02/13/18 13:00 61 25 138/58 (84) 94 02/13/18 12:30 99 25 126/79 (95) 94 02/13/18 12:00 103 14 147/63 (91) 100 02/13/18 11:30 80 26 147/68 (94) 96 02/13/18 11:10 78 32 100 02/13/18 11:00 78 18 150/73 (98) 99 02/13/18 10:30 78 20 151/72 (98) 98 02/13/18 10:00 76 17 131/67 (88) 96 02/13/18 09:15 76 34 100 02/13/18 09:14 97 02/13/18 09:00 85 23 145/79 (101) 95 02/13/18 08:00 79 22 131/64 (86) 97 02/13/18 07:20 84 34 100 02/13/18 07:00 84 25 125/65 (85) 96 02/13/18 06:00 85 26 139/57 (84) 97 02/13/18 05:00 82 22 126/59 (81) 100 02/13/18 04:51 116 32 100 02/13/18 04:00 77 02/13/18 04:00 100 02/13/18 04:00 98.1 77 24 131/73 (92) 95 02/13/18 04:00 Mechanical Ventilator 02/13/18 03:00 82 26 130/58 (82) 95 02/13/18 02:31 112 33 100 02/13/18 02:00 85 28 131/57 (81) 94 02/13/18 01:00 85 26 117/66 (83) 89 02/13/18 00:56 Mechanical Ventilator 100 02/13/18 00:55 81 33 96 Mechanical Ventilator 100 02/13/18 00:52 79 34 100 02/13/18 00:00 Mechanical Ventilator 02/13/18 00:00 98.1 87 26 131/71 (91) 90 02/12/18 23:53 83 02/12/18 23:23 94 32 Mechanical Ventilator 100 02/12/18 23:19 89 32 100 02/12/18 23:00 85 24 129/57 (81) 90 02/12/18 22:00 89 26 129/68 (88) 85 02/12/18 21:12 88 33 100 02/12/18 21:00 89 29 122/60 (80) 92 02/12/18 20:00 100 02/12/18 20:00 98.9 113 26 124/64 (84) 91 02/12/18 20:00 Mechanical Ventilator 02/12/18 19:17 112 02/12/18 19:00 89 23 120/58 (78) 97 02/12/18 18:55 81 31 100 Mechanical Ventilator 100 02/12/18 18:49 78 32 98 Mechanical Ventilator 100 02/12/18 18:44 82 35 100 02/12/18 18:00 104/60 02/12/18 18:00 85 32 108/68 (81) 02/12/18 17:11 89 30 100 02/12/18 17:00 85 32 104/60 (75) 02/12/18 16:00 97 32 113/70 (84) 02/12/18 16:00 Mechanical Ventilator 02/12/18 16:00 100 General Appearance: no apparent distress, cachetic, lethargic EENT: PERRL/EOMI, normal ENT inspection, TMs normal, pharynx normal Neck: non-tender, normal alignment, supple, normal inspection, no JVD Rhythm: NSR Cardiovascular: normal peripheral pulses, normal rate, regular rhythm Respiratory/Chest: chest wall non-tender, no respiratory distress, decreased breath sounds, accessory muscle use, crackles/rales Abdomen: normal bowel sounds, non tender, soft, no organomegaly Extremities: normal range of motion, non-tender, normal inspection, no calf tenderness 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, no pronator, abnormal CN, motor weakness , sensory deficit, disoriented Intake and Output 02/12/18 02/13/18 18:59 06:59 Intake Total 458.118 ml 1403.200 ml Output Total 210 ml 585 ml Balance 248.118 ml 818.200 ml IV Total 218.118 ml 1403.200 ml Tube Feeding 240 ml Output Urine Total 210 ml 585 ml # Bowel Movements 8 2 Laboratory Tests Test 02/12/18 22:15 02/13/18 06:15 02/13/18 09:10 02/13/18 09:33 Activated Partial Thromboplast Time > 150 SEC (23-33) *H 86 SEC (23-33) H White Blood Count 13.9 K/UL (4.8-10.8) H Red Blood Count 2.55 M/UL (4.70-6.10) L Hemoglobin 8.0 G/DL (14.2-18.0) L Hematocrit 25.1 % (42.0-52.0) L Mean Corpuscular Volume 98 FL (80-99) Mean Corpuscular Hemoglobin 31.4 PG (27.0-31.0) H Mean Corpuscular Hemoglobin Concent 31.9 G/DL (32.0-36.0) L Red Cell Distribution Width 13.7 % (11.6-14.8) Platelet Count 209 K/UL (150-450) Mean Platelet Volume 7.6 FL (6.5-10.1) Neutrophils (%) (Auto) % (45.0-75.0) Lymphocytes (%) (Auto) % (20.0-45.0) Monocytes (%) (Auto) % (1.0-10.0) Eosinophils (%) (Auto) % (0.0-3.0) Basophils (%) (Auto) % (0.0-2.0) Differential Total Cells Counted 100 Neutrophils % (Manual) 95 % (45-75) H Lymphocytes % (Manual) 3 % (20-45) L Monocytes % (Manual) 2 % (1-10) Eosinophils % (Manual) 0 % (0-3) Basophils % (Manual) 0 % (0-2) Band Neutrophils 0 % (0-8) Platelet Estimate Adequate Platelet Morphology Normal Hypochromasia 1+ Anisocytosis 1+ Sodium Level 149 MMOL/L (136-145) H Potassium Level 3.7 MMOL/L (3.5-5.1) Chloride Level 102 MMOL/L (98-107) Carbon Dioxide Level > 45 MMOL/L (21-32) *H Blood Urea Nitrogen 95 mg/dL (7-18) H Creatinine 2.6 MG/DL (0.55-1.30) H Estimat Glomerular Filtration Rate mL/min (>60) Glucose Level 147 MG/DL (74-106) H Lactic Acid Level 2.30 mmol/L (0.4-2.0) H Uric Acid 7.2 MG/DL (2.6-7.2) Calcium Level 7.5 MG/DL (8.5-10.1) L Phosphorus Level 3.3 MG/DL (2.5-4.9) Magnesium Level 2.6 MG/DL (1.8-2.4) H Total Bilirubin 0.6 MG/DL (0.2-1.0) Gamma Glutamyl Transpeptidase 6 U/L (5-85) Aspartate Amino Transf (AST/SGOT) 27 U/L (15-37) Alanine Aminotransferase (ALT/SGPT) 22 U/L (12-78) Alkaline Phosphatase 54 U/L (46-116) Total Creatine Kinase 69 U/L (26-308) Troponin I 0.626 ng/mL (0.000-0.056) C-Reactive Protein, Quantitative 7.0 mg/dL (0.00-0.90) H Total Protein 5.9 G/DL (6.4-8.2) L Albumin 1.9 G/DL (3.4-5.0) L Globulin 4.0 g/dL Albumin/Globulin Ratio 0.5 (1.0-2.7) L Arterial Blood pH 7.486 (7.350-7.450) Arterial Blood Partial Pressure CO2 66.2 mmHg (35.0-45.0) *H Arterial Blood Partial Pressure O2 55.8 mmHg (75.0-100.0) L Arterial Blood HCO3 48.9 mmol/L (22.0-26.0) *H Arterial Blood Oxygen Saturation 87.2 % (95-100) *L Arterial Blood Base Excess 22.9 (-2-2) *H Dima Test Positive Test 02/13/18 11:25 Lactic Acid Level 1.50 mmol/L (0.66-2.22) Microbiology Date/Time Source Procedure Growth Status 02/10/18 23:00 Urine,Clean Catch Urine Culture - Preliminary Yeast Species Resulted Tyrel Dawson MD Feb 13, 2018 15:56
--- NOTE | 2018-02-13 16:05 | Diagnostic Imaging Report ---
Indication: Shortness of breath Technique: One view of the chest Comparison: 02/08/2018 Findings: Interim left arm PICC placement, tip projected at the level of the superior vena cava. Stable satisfactory positions of endotracheal and nasogastric tubes. There is decreased but persistent and still extensive bilateral interstitial and airspace disease. Bilateral pleural effusions left greater than right persist unchanged. Stable cardiomegaly Impression: Slightly improved but persistent and still extensive bilateral interstitial and airspace disease Stable bilateral pleural effusions Tube and line positions as described
--- NOTE | 2018-02-13 16:12 | Infectious Diseases Prog Note ---
Assessment/Plan Assessment/Plan antibiotics : meropenem A 1. pseudomonas pneumonia 2. shock 3. respiratory failure 4. hepatitis A 5. renal failure 6. pulmonary fibrosis 7. pulmonary hypertension 8. fungal UTI P 1. continue meropenem 2. start fluconazole 3. will follow up cultures Subjective ROS Limited/Unobtainable: Yes Allergies: Coded Allergies: No Known Allergies (Unverified , 01/24/18) Objective Vital Signs Last 24 Hour Vital Signs Date Time Temp Pulse Resp B/P (MAP) Pulse Ox O2 Delivery O2 Flow Rate FiO2 02/13/18 13:45 42 25 41/25 (30) 94 02/13/18 13:30 78 25 91/15 (40) 94 02/13/18 13:00 61 25 138/58 (84) 94 02/13/18 12:30 99 25 126/79 (95) 94 02/13/18 12:00 103 14 147/63 (91) 100 02/13/18 11:30 80 26 147/68 (94) 96 02/13/18 11:10 78 32 100 02/13/18 11:00 78 18 150/73 (98) 99 02/13/18 10:30 78 20 151/72 (98) 98 02/13/18 10:00 76 17 131/67 (88) 96 02/13/18 09:15 76 34 100 02/13/18 09:14 97 02/13/18 09:00 85 23 145/79 (101) 95 02/13/18 08:00 79 22 131/64 (86) 97 02/13/18 07:20 84 34 100 02/13/18 07:00 84 25 125/65 (85) 96 02/13/18 06:00 85 26 139/57 (84) 97 02/13/18 05:00 82 22 126/59 (81) 100 02/13/18 04:51 116 32 100 02/13/18 04:00 77 02/13/18 04:00 100 02/13/18 04:00 98.1 77 24 131/73 (92) 95 02/13/18 04:00 Mechanical Ventilator 02/13/18 03:00 82 26 130/58 (82) 95 02/13/18 02:31 112 33 100 02/13/18 02:00 85 28 131/57 (81) 94 02/13/18 01:00 85 26 117/66 (83) 89 02/13/18 00:56 Mechanical Ventilator 100 02/13/18 00:55 81 33 96 Mechanical Ventilator 100 02/13/18 00:52 79 34 100 02/13/18 00:00 Mechanical Ventilator 02/13/18 00:00 98.1 87 26 131/71 (91) 90 02/12/18 23:53 83 02/12/18 23:23 94 32 Mechanical Ventilator 100 02/12/18 23:19 89 32 100 02/12/18 23:00 85 24 129/57 (81) 90 02/12/18 22:00 89 26 129/68 (88) 85 02/12/18 21:12 88 33 100 02/12/18 21:00 89 29 122/60 (80) 92 02/12/18 20:00 100 02/12/18 20:00 98.9 113 26 124/64 (84) 91 02/12/18 20:00 Mechanical Ventilator 02/12/18 19:17 112 02/12/18 19:00 89 23 120/58 (78) 97 02/12/18 18:55 81 31 100 Mechanical Ventilator 100 02/12/18 18:49 78 32 98 Mechanical Ventilator 100 02/12/18 18:44 82 35 100 02/12/18 18:00 104/60 02/12/18 18:00 85 32 108/68 (81) 02/12/18 17:11 89 30 100 02/12/18 17:00 85 32 104/60 (75) Height (Feet): 5 Height (Inches): 9.00 Weight (Pounds): 167 HEENT: other - intubated Respiratory/Chest: lungs clear Cardiovascular: normal rate, regular rhythm, no gallop/murmur Abdomen: soft, non tender Extremities: other - + edema, left arm PICC Microbiology Date/Time Source Procedure Growth Status 02/10/18 23:00 Urine,Clean Catch Urine Culture - Preliminary Yeast Species Resulted Laboratory Tests Test 02/12/18 22:15 02/13/18 06:15 02/13/18 09:10 02/13/18 09:33 Activated Partial Thromboplast Time > 150 SEC (23-33) *H 86 SEC (23-33) H White Blood Count 13.9 K/UL (4.8-10.8) H Red Blood Count 2.55 M/UL (4.70-6.10) L Hemoglobin 8.0 G/DL (14.2-18.0) L Hematocrit 25.1 % (42.0-52.0) L Mean Corpuscular Volume 98 FL (80-99) Mean Corpuscular Hemoglobin 31.4 PG (27.0-31.0) H Mean Corpuscular Hemoglobin Concent 31.9 G/DL (32.0-36.0) L Red Cell Distribution Width 13.7 % (11.6-14.8) Platelet Count 209 K/UL (150-450) Mean Platelet Volume 7.6 FL (6.5-10.1) Neutrophils (%) (Auto) % (45.0-75.0) Lymphocytes (%) (Auto) % (20.0-45.0) Monocytes (%) (Auto) % (1.0-10.0) Eosinophils (%) (Auto) % (0.0-3.0) Basophils (%) (Auto) % (0.0-2.0) Differential Total Cells Counted 100 Neutrophils % (Manual) 95 % (45-75) H Lymphocytes % (Manual) 3 % (20-45) L Monocytes % (Manual) 2 % (1-10) Eosinophils % (Manual) 0 % (0-3) Basophils % (Manual) 0 % (0-2) Band Neutrophils 0 % (0-8) Platelet Estimate Adequate Platelet Morphology Normal Hypochromasia 1+ Anisocytosis 1+ Sodium Level 149 MMOL/L (136-145) H Potassium Level 3.7 MMOL/L (3.5-5.1) Chloride Level 102 MMOL/L (98-107) Carbon Dioxide Level > 45 MMOL/L (21-32) *H Blood Urea Nitrogen 95 mg/dL (7-18) H Creatinine 2.6 MG/DL (0.55-1.30) H Estimat Glomerular Filtration Rate mL/min (>60) Glucose Level 147 MG/DL (74-106) H Lactic Acid Level 2.30 mmol/L (0.4-2.0) H Uric Acid 7.2 MG/DL (2.6-7.2) Calcium Level 7.5 MG/DL (8.5-10.1) L Phosphorus Level 3.3 MG/DL (2.5-4.9) Magnesium Level 2.6 MG/DL (1.8-2.4) H Total Bilirubin 0.6 MG/DL (0.2-1.0) Gamma Glutamyl Transpeptidase 6 U/L (5-85) Aspartate Amino Transf (AST/SGOT) 27 U/L (15-37) Alanine Aminotransferase (ALT/SGPT) 22 U/L (12-78) Alkaline Phosphatase 54 U/L (46-116) Total Creatine Kinase 69 U/L (26-308) Troponin I 0.626 ng/mL (0.000-0.056) C-Reactive Protein, Quantitative 7.0 mg/dL (0.00-0.90) H Total Protein 5.9 G/DL (6.4-8.2) L Albumin 1.9 G/DL (3.4-5.0) L Globulin 4.0 g/dL Albumin/Globulin Ratio 0.5 (1.0-2.7) L Arterial Blood pH 7.486 (7.350-7.450) Arterial Blood Partial Pressure CO2 66.2 mmHg (35.0-45.0) *H Arterial Blood Partial Pressure O2 55.8 mmHg (75.0-100.0) L Arterial Blood HCO3 48.9 mmol/L (22.0-26.0) *H Arterial Blood Oxygen Saturation 87.2 % (95-100) *L Arterial Blood Base Excess 22.9 (-2-2) *H Dima Test Positive Test 02/13/18 11:25 Lactic Acid Level 1.50 mmol/L (0.66-2.22) Current Medications Medications (Trade) Dose Ordered Sig/Chaka Route PRN Reason Start Time Stop Time Status Last Admin Dose Admin Acetaminophen (Tylenol) 650 mg PRN PRN RECTAL Prn Headache/Temp > 101 01/26/18 22:15 02/23/18 22:14 01/28/18 20:35 Chlorhexidine Gluconate (Cathi-Hex 2%) 1 applic DAILY@1999 TOPIC 02/10/18 20:00 03/12/18 19:59 02/12/18 20:38 Dextrose/Sodium Chloride 1,000 ml @ 75 mls/hr [id number] IV 02/13/18 11:00 03/15/18 10:59 02/13/18 11:00 Dopamine HCl/ Dextrose 250 ml @ 0 mls/hr Q24H IV 02/10/18 18:00 03/12/18 17:59 02/11/18 13:01 Heparin Sodium/ Dextrose 500 ml @ 21.115 mls/ hr ADJUST PER PROTOCOL IV 02/13/18 00:15 03/15/18 00:14 02/13/18 00:18 Hydrocortisone (Solu-CORTEF) 100 mg EVERY 8 HOURS IV 02/11/18 14:00 03/13/18 13:59 02/13/18 05:32 Meropenem 500 mg/ Sodium Chloride 55 ml @ 110 mls/hr Q12H IVPB 02/12/18 12:00 02/17/18 11:59 02/13/18 11:45 Midazolam HCl (Versed 2mg/2ml vial) 2 mg EVERY 4 HOURS PRN IVP For Anxiety 01/26/18 10:00 02/25/18 09:59 02/12/18 02:52 Ondansetron HCl (Zofran) 4 mg Q6H PRN IVP Nausea & Vomiting 01/26/18 22:15 02/25/18 22:14 Pantoprazole (Protonix) 40 mg Q12HR IVP 02/13/18 21:00 03/13/18 14:59 Phenylephrine HCl 50 mg/Dextrose 250 ml @ 0 mls/hr Q24H IV 02/12/18 14:15 03/14/18 14:14 02/12/18 14:37 Nhan Miguel MD Feb 13, 2018 16:12
--- NOTE | 2018-02-13 19:36 | Emergency Room Report ---
History of Present Illness General Chief Complaint: Generalized Weakness Source: Medical Record Present Illness Allergies: Coded Allergies: No Known Allergies (Unverified , 01/24/18) Nursing Documentation-[facility] Past Medical History Deferred: Pt Cognitively Impaired Past Medical History: No History, Except For Hx Cardiac Problems: No Hx Hypertension: No - Hypotension Hx Cancer: No Hx Gastrointestinal Problems: No Hx Neurological Problems: No Physical Exam Vital Signs Date Time Temp Pulse Resp B/P (MAP) Pulse Ox O2 Delivery O2 Flow Rate FiO2 02/09/18 07:00 22 Endotracheal Tube 02/09/18 07:00 70 114/45 (68) 98 02/09/18 07:31 100 02/09/18 08:00 99.3 02/09/18 10:30 10.0 Procedures Critical Care Time Critical Care Time i. I feel this is a highly complex case requiring extensive working including EKG/Rhythm strip, Xray/CT/US, Blood/urine lab work, repeat exams while in ED, and administration of strong opiates/narcotics for pain control, admission to hospital or close patient follow up. Total time: 30 min bedside evaluation and treatment excludes procedures (EKG). Reason for critical care: Hypoxia, dislodged ET tube Possible complications: hypotension, hypertension, [place], shock, arrhythmias, metabolic acidosis, end organ damage, respiratory failure. Interventions: Intubation Course: Patient presenting with dislodged ET tube. O2 sats low. I evaluated the patient and reintubated the patient. O2 sats improved. Chest x-ray confirms ET tube placement Consultations: nursing staff, EMS, family Performed by: Dr Jaimes Tolerated well condition = critical j. because of unstable vital signs this patient had a condition that could potentially threaten life or limb. I feel this is a critical patient who required my full attention while patient was considered critical. Total Critical Care Time excluding procedures was greater than 35 minutes Intubation Intubation : Consent: Verbal Intubation Method: orotracheal Tube Size (cm): 7.5 Medications: Etomidate Breath Sounds after Intubation: equal Intubation Complications: no complications Post Intubation Xray: Yes Attempts: One Patient Tolerated: Well Complications: None Medical Decision Making Diagnostic Impression: Primary Impression: Episode of generalized weakness Additional Impressions: Severe sepsis Renal insufficiency Hypoxia UTI (urinary tract infection) Pneumonia Qualified Codes: J18.1 - Lobar pneumonia, unspecified organism ER Course ET tube dislodged. O2 sats low. I evaluated patient and reintubated patient. O2 sats improved. Chest x-ray confirms ET tube placement Last Vital Signs Date Time Temp Pulse Resp B/P (MAP) Pulse Ox O2 Delivery O2 Flow Rate FiO2 02/13/18 13:45 42 25 41/25 (30) 94 02/13/18 12:00 Mechanical Ventilator 02/13/18 11:10 100 02/13/18 04:00 98.1 02/09/18 19:20 10.0 Status: improved Disposition: ADMITTED INPATIENT Condition: Critical Referrals: NON PHYSICIAN (PCP) Huan Jaimes MD Feb 13, 2018 19:36
[2018-02-13] MEDS ORDERED: Pantoprazole Inj IVP SCH (21:00)
[2018-02-14] MEDS ORDERED: Fluconazole 100mg tab ORAL SCH (09:00)
--- NOTE | 2018-02-15 11:00 | Discharge Summary ---
Discharge Summary Discharge Summary _ SUMMARY DATE OF ADMISSION: 01/24/2018 DATE OF EXPIRATION: 02/13/2018 REASON FOR ADMISSION: 77 years old male , current daily smoker with history of hypertension, back pain , lack of health maintenance, presented with respiratory illness, bilateral pneumonia, lactic acidosis, abnormal kidney function and renal function likely OLEG, and shock liver. unknown past medical history presented to emergency room for evaluation from home. Family reported frequent falls and increased weakness. [id number] reported that patient became increasingly weak and sick for the last few days. Family reported cough. Patient hit his head during the fall. He denied chest pain or shortness of breath. Upon evaluation he was found to be hypoxic and with mild tachycardia. Laboratory workup revealed no leukocytosis, hemoglobin 12.8 hematocrit 37.1. Lactic acid 4.0 . BUN 52, creatinine 1.6. Total bili 2.2 ,direct bili 0.9. AST 54 ,ALT normal. Albumin 2.3. Troponin 0 0.016 , pro BNP 2036 . EKG revealed sinus tachycardia, no acute ischemic changes. Urinalysis revealed probable evidence of UTI. Chest x-ray revealed bilateral consolidation with suspecting acute infiltrates in right upper lobe and left lung base. CT of the head revealed chronic age-related changes, but was negative for acute intracranial bleeding or mass-effect. Septic workup initiated in the emergency department. Patient pancultured , started on fluid resuscitation and broad-spectrum antibiotics. ABGon nasal cannula revealed hypoxia. Patient was switched to nonrebreathing mask, and repeated ABG showed some improvement but still hypoxia. Family agreed to full code and to BiPAP. Patient started on the BiPAP. Patient subsequently was admitted to direct observational unit in critical condition with diagnoses of sepsis, acute hypoxemic respiratory failure, pneumonia, urinary tract infection ,recurrent falls ,dehydration, renal failure. CONSULTANTS: purchasing supervisor Dr. Ritter pulmonary ID specialist Dr. Ray GI specialist Dr. Salgado theoretical physicist Dr. Mclaughlin checkering machine adjuster/oncologist Dr. Yung surgery Dr. Clemente psychiatrist [facility] COURSE: Patient admitted to [facility]. Patient was provided with intensive fluid resuscitation and broad spectrum of antibiotics per ID specialist recommendations The multidisciplinary team of physicians followed the patient. Patient initially was on the BiPAP. Field Marketing Manager closely followed. Patient likely had community-acquired pneumonia with likely underlying lung disease. Patient current daily smoker. Supplemental oxygen provided initially via BiPAP mask to keep pulse oximetry above 92%. Patient was followed-up with ABGs. Nebulizing therapy with bronchodilator provided [id number] and as needed. Patient initially kept n.p.o. until swallow evaluation. Venous duplex bilateral lower extremity revealed no evidence of acute DVT. CT of the chest revealed no evidence of large central pulmonary emboli. Extensive chronic pulmonary parenchymal disease with extensive and diffuse honeycombing, indicating chronic end stage interstitial fibrosis. DVT prophylaxis provided. Echocardiogram revealed preserved ejection fraction of 60%. No evidence of wall motion abnormality. Moderate mitral regurgitation. Right ventricular systolic pressure of 60 consistent with severe pulmonary hypertension Patient was noncomplying with BiPAP, subsequently 100% nonrebreathing mask was placed. ABG revealed severe acidosis with pH of 7.18 and oxygen saturation of 80%. Patient was subsequently orally intubated by the emergency room physician on 01/26. Chest x-ray confirmed satisfactory endotracheal intubation. CXR showed apparent worsening of bilateral parenchymal disease over 2 days. At that time noted elevated troponin of 0.148/second troponin. . ECG revealed atrial fibrillation with rapid ventricular response. Left axis deviation with right bundle branch block. Patient started on heparin drip. Serial troponin were monitored. Initially trended up to 0.4 and then down, levels flat, with minimal elevation. No complaints of chest pain. Per purchasing supervisor, troponin elevation could be due to respiratory failure and azotemia. Heparin drip was discontinued after 48 hours. Nasogastric tube was inserted shortly after oral intubation for nutritional support and medication. Abdominal X ray confirmed placement. Patient started on tube feeding with strict aspiration and reflux precaution. Pulmonary toilet provided [id number] and as needed with DuoNeb. Empiric antibiotic continued. Volumes and renal parameters were closely monitored. Respiratory failure was probably partially due to congestive heart failure with pro BNP near 5000. IV fluids rate decreased and then stopped. ID specialist followed. Blood cultures were negative. Influenza screen test was negative. Sputum culture revealed Asmita. Repeated sputum culture showed Pseudomonas aeruginosa. Urine culture revealed Asmita. Patient was exhibited leukocytosis that started on the next day after admission and persisted. Patient also demonstrated intermittent fevers. Patient was on antibiotic as per ID specialist recommendations. HIV test was negative. Renal parameters and electrolytes were closely monitored. Nephrotoxins were avoided. Electrolytes corrected as needed. Tungsten Tender clsoely followed. Abdominal ultrasound revealed surgically absent gallbladder. Extrahepatic and central intrahepatic biliary ductal dilatation concerning for downstream obstruction. Possible nonobstructive tiny left lower pole renal calyceal calculus. CT of the abdomen and pelvis revealed no definite acute abdominal pathology. Extrahepatic biliary ductal dilatation noted ,suspecting related to age and postcholecystectomy state. No definite downstream obstructive process. Surgeon followed. Abdominal ultrasound and CAT scan were reviewed. No notable obstruction. No acute surgical intervention was necessary as per surgeon. GI specialist followed. LFT were closely monitored. Hepatitis panel revealed active hepatitis B infection. GI prophylaxis prophylaxis with PPI provided. Bowel regimen instituted. Anemia workup revealed evidence of anemia of chronic disease due to underlying chronic medical issues, multifactorial as well as folate deficiency. Patient started on folic acid supplement. Hemoglobin and hematocrit were closely monitored with goal to keep hemoglobin above 7. Monogram Operator followed. Wound care for stage 3 sacral decubitus ulcer, present on admission, provided as per surgeon recommendations. Psychiatrist followed. Per psychiatrist patient lacked capacity to make decision and family should make all decisions for the patient. Patient with failure to wean from the ventilator, underlying end stage pulmonary fibrosis, multilobar pneumonia, COPD, required tracheostomy placement due to anticipated long tern ventilator needs. Surgeon followed for possible placement of tracheostomy tube if family agree. Patient condition was deteriorating. All antihypertensive medications stopped. Patient was intermittently on pressors to keep mean arterial systolic pressure above 60. Hemodynamic status closely monitored. Albumin boluses provided as needed. Patient continued to get progressively hypoxemic. Field Marketing Manager adjusted ventilator settings with FiO2 100% , PEEP 15 and AC rate 30. Due to concern for possible pulmonary emboli ( due to worsening and persistent hypoxemia), patient was started on heparin drip. Clinically patient also demonstrated evidence of acute respiratory distress syndrome as per locker attendant. Repeated ECHO still demonstrated preserved ejection of 60%, but showed worsening and severe pulmonary hypertension with right ventricular systolic pressure of 90 to 100. After long discussion with patient's family ( two sons) , code status was changed to DNR on 02/11 . Family refused tracheostomy and refused escalation of care. However family did not agree to terminal extubation and full comfort measure. Patient was reintubated 02/13 at 13:23 due to dislodged ET tube. Patient heart rate began to slowly decrease. Attempt to revive the patient failed. Dopamine started to bring heart rate up, but heart rate failed to respond to dopamine. Patient became asystolic. Unfortunately despite all possible attempted life saving measures without compromising the CODE STATUS, patient . Patient was pronounced at 02/02/2024 at 14:12. Cause of : cardiopulmonary arrest. FINAL DIAGNOSES: Acute hypoxemic respiratory failure secondary to pneumonia COPD and CHF requiring oral intubation Failure to wean ARDS Severe sepsis with shock Multilobar pneumonia on top of underlying fibrotic lung disease Pseudomonas pneumonia End-stage interstitial fibrosis Severe pulmonary hypertension NSTEMI type II Fungal UTI Lactic acidosis Acute kidney injury /acute renal failure Active hepatitis A infection Abnormal LFT Toxic encephalopathy Anemia of chronic disease, multifactorial Folate deficiency History of hypertension Sacral decubitus ulcer stage III, present on admission. I have been assigned to dictate discharge summary for this account. I was not involved in the patient's management. Aranza Gambino NP Feb 15, 2018 11:00
--- NOTE | 2018-02-16 17:06 | Diagnostic Imaging Report ---
APPROVED REPORT CPT Code: 78053, 42826 Present Symptoms Comments: Pain Bilateral upper and lower extremity Venous duplex Scan. BILATERAL UPPER EXTREMITY: Imaging reveals patency of the internal jugular, subclavian, axillary and brachial veins. The both cephalic and left basilic veins are also patent. Doppler indicates normal spontaneous flow within these venous segments, bilaterally. The right basilic vein was not well visualized. BILATERAL LOWER EXTREMITY: Imaging reveals a patent deep venous system bilaterally. There is no evidence of thrombus within the femoral, popliteal or tibial segments. The greater saphenous veins are also within normal limits. Doppler indicates normal spontaneous flow within these segments. The left superficial femoral to the popliteal veins were not well visualized due to contracture of the left leg.
== END 2018-02-13 21:56 | disposition expired | DRG 870 ==
LOC: EDBD 18:26 → EMR 19:02 → 2W 19:05 → EDBEDREQ 19:24 → EDBEDREQSVC 19:24 → EDBEDREQ 19:53 → EDBEDREQSVC 21:49 → EDBEDREQ 01-25 05:01 → ICU 01-26 08:14
PROC: 0BH17EZ Insertion of Endotracheal Airway into Trachea, Via Natural or Artificial Opening (ICD-10-PCS; principal; 2018-01-26)
PROC: 5A1955Z Respiratory Ventilation, Greater than 96 Consecutive Hours (ICD-10-PCS; principal; 2018-01-26)
PROC: 02HV33Z Insertion of Infusion Device into Superior Vena Cava, Percutaneous Approach (ICD-10-PCS; 2018-02-10)
PROC: B548ZZA Ultrasonography of Superior Vena Cava, Guidance (ICD-10-PCS; 2018-02-10)
PROC: 0BH17EZ Insertion of Endotracheal Airway into Trachea, Via Natural or Artificial Opening (ICD-10-PCS; 2018-02-13)
DX: A41.9 Sepsis, unspecified organism (principal); L89.153 Pressure ulcer of sacral region, stage 3; J96.01 Acute respiratory failure with hypoxia; J15.1 Pneumonia due to Pseudomonas; G92 Toxic encephalopathy; I21.A1 Myocardial infarction type 2; E43 Unspecified severe protein-calorie malnutrition; K72.00 Acute and subacute hepatic failure without coma; J80 Acute respiratory distress syndrome; N39.0 Urinary tract infection, site not specified; N17.9 Acute kidney failure, unspecified; J44.0 Chronic obstructive pulmonary disease with (acute) lower respiratory infection; B49 Unspecified mycosis; B15.9 Hepatitis A without hepatic coma; Z99.11 Dependence on respirator [ventilator] status; D68.9 Coagulation defect, unspecified; R65.20 Severe sepsis without septic shock; F03.90 Unspecified dementia, unspecified severity, without behavioral disturbance, psychotic disturbance, mood disturbance, and anxiety; E86.0 Dehydration; E78.5 Hyperlipidemia, unspecified; I11.0 Hypertensive heart disease with heart failure; I50.9 Heart failure, unspecified; M54.5 Low back pain; Z72.0 Tobacco use; R94.5 Abnormal results of liver function studies; E87.6 Hypokalemia; J84.10 Pulmonary fibrosis, unspecified; R00.1 Bradycardia, unspecified; K31.84 Gastroparesis; K59.00 Constipation, unspecified; R13.10 Dysphagia, unspecified; D64.9 Anemia, unspecified; I48.91 Unspecified atrial fibrillation; Z66 Do not resuscitate; Z68.24 Body mass index [BMI] 24.0-24.9, adult; I27.20 Pulmonary hypertension, unspecified; E53.8 Deficiency of other specified B group vitamins
CPT/HCPCS: 36415; 36569; 36600; 70450; 71045; 71275; 74018; 74177; 76700; 76937; 80048; 80053; 80061; 80202; 81003; 82140; 82248; 82378; 82533; 82550; 82553; 82607; 82728; 82746; 82803; 82977; 83036; 83540; 83550; 83605; 83615; 83735; 83880; 84100; 84443; 84484; 84550; 85007; 85025; 85044; 85060; 85379; 85610; 85660; 85730; 86140; 86703; 86705; 86709; 86710; 86803; 87040; 87070; 87086; 87181; 87205; 87340; 93005; 93306; 93970; 94002; 94003; 94640; 94660; 94664; 94760; 96361; 96365; 96368; 99291; J2250; J2370; J7620; J8499